=== PATIENT | male | born 1965 | race Hispanic/Latino ===

== ENCOUNTER 2019-08-22 12:50 | Inpatient (IN) | payer MEDICAID ==
--- NOTE | 2019-08-22 12:59 | Emergency Department Report ---
Blank Doc - Documentation Documentation: 54-year-old male that presents with left foot cellulites and drainage. Stated has not been taking his metformin for about 5 months. This initial assessment/diagnostic orders/clinical plan/treatment(s) is/are subject to change based on patient's health status, clinical progression and re- assessment by fellow clinical providers in the ED. Further treatment and workup at subsequent clinical providers discretion. Patient/guardians urged not to elope from the ED as their condition may be serious if not clinically assessed and managed. Initial orders include: 1- Patient sent to MAIN ED for further evaluation and treatment 2- labs 3- UA
[2019-08-22 14:12] LABS: Alanine Aminotransferase 44 units/L (7-56); BUN/Creatinine Ratio 27; Blood Urea Nitrogen 19 mg/dL (9-20); Calcium 9.7 mg/dL (8.4-10.2); Hemolysis Index 36
[2019-08-22 14:24] LABS: Hemoglobin 16.2 gm/dl (11.8-15.2); Mean Corpuscular HGB Conc 34 % (32-34); Mean Corpuscular Volume 92 fl (84-94); Red Blood Count 5.22 M/mm3 (3.65-5.03); Red Cell Distribution Width 14.6 % (13.2-15.2)
[2019-08-22] MEDS ORDERED: SODIUM CHLORIDE 0.9% 1000 ML 1,000 ML IV ONE (14:27)
[2019-08-22 14:32] LABS: Platelet Count 69 K/mm3 (140-440)
[2019-08-22 14:33] LABS: Color,Urine Yellow (Yellow)
[2019-08-22] MEDS ORDERED: cefTRIAXone/NS 1 GM/50 ML 1 GM/50 ML BAG IV ONE (14:33)
[2019-08-22] MEDS ORDERED: MORPHINE 4 MG/1 ML INJ IV ONE (14:33)
[2019-08-22 14:34] LABS: Bilirubin,Urine NEG (Negative); Blood,Urine SM (Negative); Protein,Urine <15 mg/dL mg/dL (Negative)
[2019-08-22 14:38] LABS: Eosinophils % (Auto) 0.1 % (0.0-4.3); Monocytes # (Auto) 1.7 K/mm3 (0.0-0.8)
[2019-08-22] MEDS ORDERED: INSULIN REGULAR, HUMAN 100 UNITS/1 ML IV ONE (14:38)
--- NOTE | 2019-08-22 15:42 | XRay Report ---
Left foot-3 views INDICATION: pain/gangrene. COMPARISON: None. IMPRESSION: There is generalized soft tissue swelling about the foot with subcutaneous gas along the medial aspect of the foot. No leia bone destruction or periostitis identified to suggest osteomyel itis. Old amputation change is present at the base of the great toe metatarsal. Old healed second and third metatarsal fractures are also noted, and there are degenerative changes throughout the foot. Signer Name: Sabas Ruiz MD Signed: 08/22/2019 3:37 PM Workstation Name: [id number]
[2019-08-22 15:47] LABS: Basophils % (Manual) 0 % (0.0-1.8); Eosinophils % (Manual) 0 % (0.0-4.3); Giant Platelets Few; Platelet Estimate Consistent w Auto; RBC Morphology Normal; Total Cells Counted 100
--- NOTE | 2019-08-22 15:55 | Emergency Department Report ---
ED General Adult HPI - General Chief complaint: Extremity Injury, Lower Stated complaint: LFT FOOT/POSS INFECTED/DIABETIC Time Seen by Provider: 08/22/19 12:56 Source: patient Mode of arrival: Ambulatory Limitations: No Limitations - History of Present Illness Initial comments: This is a 54-year-old male with past medical history of diet ED's uncontrolled with medication as well as hypertension uncontrolled with medication who presents to ED complaining of left foot redness and pain and pus drainage for some time now. Patient states that this initially started about 2-1/2 years ago when he sustained an injury to the left foot. Patient states that the food got infected and he had to have the big toe amputated in 2016. 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 Patient states he has not had is diabetic medication for the past 4-5 months. Patient states he takes metformin for his diabetes. Patient denies fever but states that his left foot is painful and red and swollen making it difficult for him to the ambulate properly on that foot. Patient states pain is worsened with applied pressure to the foot. Severity scale (0 -10): 8 - Related Data Previous Rx's Medication Instructions Recorded Last Taken Type Famotidine [Pepcid] 20 mg PO BID #28 tablet 05/18/18 Unknown Rx Folic Acid [Folvite] 1 mg PO QDAY #30 tablet 05/18/18 Unknown Rx Mirtazapine [Remeron 15mg TAB] 15 mg PO QHS #30 tablet 05/18/18 Unknown Rx Nicotine [Habitrol] 21 mg TD QDAY #7 patch 05/18/18 Unknown Rx Thiamine [Vitamin B-1] 100 mg PO QDAY #30 tablet 05/18/18 Unknown Rx amLODIPine 10 mg PO QDAY #30 tablet 05/18/18 Unknown Rx metFORMIN [Glucophage] 500 mg PO BID #60 tablet 05/18/18 Unknown Rx Allergies Allergy/AdvReac Type Severity Reaction Status Date / Time Unable to Assess Allergy Unverified 05/03/18 11:02 ED Review of Systems ROS: Stated complaint: LFT FOOT/POSS INFECTED/DIABETIC Other details as noted in HPI Comment: All other systems reviewed and negative ED Past Medical Hx - Past Medical History Hx CVA: Yes Hx Diabetes: Yes Hx Psychiatric Treatment: Yes (ETOH) - Surgical History Additional Surgical History: LT GRT TOE AMPUTATED - Social History Smoking Status: Unknown if ever smoked Substance Use Type: None - Medications Home Medications: Home Medications Medication Instructions Recorded Confirmed Last Taken Type Famotidine [Pepcid] 20 mg PO BID #28 tablet 05/18/18 Unknown Rx Folic Acid [Folvite] 1 mg PO QDAY #30 tablet 05/18/18 Unknown Rx Mirtazapine [Remeron 15mg TAB] 15 mg PO QHS #30 tablet 05/18/18 Unknown Rx Nicotine [Habitrol] 21 mg TD QDAY #7 patch 05/18/18 Unknown Rx Thiamine [Vitamin B-1] 100 mg PO QDAY #30 tablet 05/18/18 Unknown Rx amLODIPine 10 mg PO QDAY #30 tablet 05/18/18 Unknown Rx metFORMIN [Glucophage] 500 mg PO BID #60 tablet 05/18/18 Unknown Rx ED Physical Exam - General Limitations: No Limitations General appearance: alert, in no apparent distress - Head Head exam: Present: atraumatic, normocephalic - Eye Eye exam: Present: normal appearance - ENT ENT exam: Present: mucous membranes moist - Neck Neck exam: Present: normal inspection - Respiratory Respiratory exam: Present: normal lung sounds bilaterally. Absent: respiratory distress - Cardiovascular Cardiovascular Exam: Present: regular rate, normal rhythm. Absent: systolic murmur, diastolic murmur, rubs, gallop - GI/Abdominal GI/Abdominal exam: Present: soft, normal bowel sounds - Rectal Rectal exam: Present: deferred - Extremities Exam Extremities exam: Present: normal inspection - Expanded Lower Extremity Exam Left Hip exam: Present: full ROM Upper Leg exam: Present: normal inspection Knee exam: Present: normal inspection Lower Leg exam: Present: normal inspection, swelling, erythema. Absent: Tyler's sign Ankle exam: Present: tenderness, swelling (2+ pitting edema) Foot/Toe exam: Present: tenderness, swelling, erythema, amputation (of great toe) Neuro vascular tendon exam: Present: no vascular compromise. Absent: motor deficit, sensory deficit Gait: Positive: not tested/not observed - Back Exam Back exam: Present: normal inspection - Neurological Exam Neurological exam: Present: alert, oriented X3 - Psychiatric Psychiatric exam: Present: normal affect, normal mood - Skin Skin exam: Present: warm, dry, intact, normal color. Absent: rash ED Course Vital Signs 08/22/19 13:09 Temperature 98.1 F Pulse Rate 111 H Respiratory 20 Rate Blood Pressure 128/83 O2 Sat by Pulse 98 Oximetry - Reevaluation(s) Reevaluation #1: Patient is currently laying comfortable in the ED bed. Antibiotics therapy started. Patient awaiting hospitalist assessment. Vital signs are stable at the moment. 08/22/19 16:09 ED Medical Decision Making - Lab Data Result diagrams: 08/22/19 13:23 08/22/19 13:23 Laboratory Last Values WBC 10.6 K/mm3 (4.5-11.0) 08/22/19 13:23 RBC 5.22 M/mm3 (3.65-5.03) H 08/22/19 13:23 Hgb 16.2 gm/dl (11.8-15.2) H 08/22/19 13:23 Hct 48.0 % (35.5-45.6) H 08/22/19 13:23 MCV 92 fl (84-94) 08/22/19 13:23 MCH 31 pg (28-32) 08/22/19 13:23 MCHC 34 % (32-34) 08/22/19 13:23 RDW 14.6 % (13.2-15.2) 08/22/19 13:23 Plt Count 69 K/mm3 (140-440) L 08/22/19 13:23 Jack % (Auto) [employer] 08/22/19 13:23 Eos % (Auto) 0.1 % (0.0-4.3) 08/22/19 13:23 Jack # 1.7 K/mm3 (0.0-0.8) H 08/22/19 13:23 Eos # 0.0 K/mm3 (0.0-0.4) 08/22/19 13:23 Baso # 0.0 K/mm3 (0.0-0.1) 08/22/19 13:23 Add Manual Diff Complete 08/22/19 13:23 Total Counted 100 08/22/19 13:23 Seg Neutrophils % 72.7 % (40.0-70.0) H 08/22/19 13:23 Seg Neuts % (Manual) 73.0 % (40.0-70.0) H 08/22/19 13:23 Band Neutrophils % 0 % 08/22/19 13:23 Lymphocytes % (Manual) 11.0 % (13.4-35.0) L 08/22/19 13:23 Reactive Lymphs % (Man) 0 % 08/22/19 13:23 Monocytes % (Manual) 16.0 % (0.0-7.3) H 08/22/19 13:23 Eosinophils % (Manual) 0 % (0.0-4.3) 08/22/19 13:23 Basophils % (Manual) 0 % (0.0-1.8) 08/22/19 13:23 Metamyelocytes % 0 % 08/22/19 13:23 Myelocytes % 0 % 08/22/19 13:23 Promyelocytes % 0 % 08/22/19 13:23 Blast Cells % 0 % 08/22/19 13:23 Nucleated RBC % Not Reportable 08/22/19 13:23 Seg Neutrophils # 7.9 K/mm3 (1.8-7.7) H 08/22/19 13:23 Seg Neutrophils # Man 7.7 K/mm3 (1.8-7.7) 08/22/19 13:23 Band Neutrophils # 0.0 K/mm3 08/22/19 13:23 Lymphocytes # (Manual) 1.2 K/mm3 (1.2-5.4) 08/22/19 13:23 Abs React Lymphs (Man) 0.0 K/mm3 08/22/19 13:23 Monocytes # (Manual) 1.7 K/mm3 (0.0-0.8) H 08/22/19 13:23 Eosinophils # (Manual) 0.0 K/mm3 (0.0-0.4) 08/22/19 13:23 Basophils # (Manual) 0.0 K/mm3 (0.0-0.1) 08/22/19 13:23 Metamyelocytes # 0.0 K/mm3 08/22/19 13:23 Myelocytes # 0.0 K/mm3 08/22/19 13:23 Promyelocytes # 0.0 K/mm3 08/22/19 13:23 Blast Cells # 0.0 K/mm3 08/22/19 13:23 WBC Morphology Not Reportable 08/22/19 13:23 Hypersegmented Neuts Not Reportable 08/22/19 13:23 Hyposegmented Neuts Not Reportable 08/22/19 13:23 Hypogranular Neuts Not Reportable 08/22/19 13:23 Smudge Cells Not Reportable 08/22/19 13:23 Toxic Granulation Not Reportable 08/22/19 13:23 Toxic Vacuolation Not Reportable 08/22/19 13:23 Dohle Bodies Not Reportable 08/22/19 13:23 Pelger-Huet Anomaly Not Reportable 08/22/19 13:23 Jazmyn Rods Not Reportable 08/22/19 13:23 Platelet Estimate Consistent w auto 08/22/19 13:23 Clumped Platelets Not Reportable 08/22/19 13:23 Plt Clumps, EDTA Not Reportable 08/22/19 13:23 Large Platelets Not Reportable 08/22/19 13:23 Giant Platelets Few 08/22/19 13:23 Platelet Satelliting Not Reportable 08/22/19 13:23 Plt Morphology Comment Not Reportable 08/22/19 13:23 RBC Morphology Normal 08/22/19 13:23 Dimorphic RBCs Not Reportable 08/22/19 13:23 Polychromasia Not Reportable 08/22/19 13:23 Hypochromasia Not Reportable 08/22/19 13:23 Poikilocytosis Not Reportable 08/22/19 13:23 Anisocytosis Not Reportable 08/22/19 13:23 Microcytosis Not Reportable 08/22/19 13:23 Macrocytosis Not Reportable 08/22/19 13:23 Spherocytes Not Reportable 08/22/19 13:23 Pappenheimer Bodies Not Reportable 08/22/19 13:23 Sickle Cells Not Reportable 08/22/19 13:23 Target Cells Not Reportable 08/22/19 13:23 Tear Drop Cells Not Reportable 08/22/19 13:23 Ovalocytes Not Reportable 08/22/19 13:23 Helmet Cells Not Reportable 08/22/19 13:23 [place] Bodies Not Reportable 08/22/19 13:23 [place] Rings Not Reportable 08/22/19 13:23 [place] Cells Not Reportable 08/22/19 13:23 Bite Cells Not Reportable 08/22/19 13:23 Crenated Cell Not Reportable 08/22/19 13:23 Elliptocytes Not Reportable 08/22/19 13:23 Acanthocytes (Spur) Not Reportable 08/22/19 13:23 Rouleaux Not Reportable 08/22/19 13:23 Hemoglobin C Crystals Not Reportable 08/22/19 13:23 Schistocytes Not Reportable 08/22/19 13:23 Malaria parasites Not Reportable 08/22/19 13:23 [place] Bodies Not Reportable 08/22/19 13:23 Hem Pathologist Commnt No 08/22/19 13:23 VBG pH 7.362 (7.320-7.420) 08/22/19 13:23 Sodium 124 mmol/L (137-145) L 08/22/19 13:23 Potassium 3.7 mmol/L (3.6-5.0) 08/22/19 13:23 Chloride 85.1 mmol/L (98-107) L 08/22/19 13:23 Carbon Dioxide 21 mmol/L (22-30) L 08/22/19 13:23 Anion Gap 22 mmol/L 08/22/19 13:23 BUN 19 mg/dL (9-20) 08/22/19 13:23 Creatinine 0.7 mg/dL (0.8-1.5) L 08/22/19 13:23 Estimated GFR > 60 ml/min 08/22/19 13:23 BUN/Creatinine Ratio 27 % 08/22/19 13:23 Glucose 406 mg/dL (75-100) H 08/22/19 13:23 Lactic Acid 2.30 mmol/L (0.7-2.0) H* 08/22/19 14:58 Calcium 9.7 mg/dL (8.4-10.2) 08/22/19 13:23 Total Bilirubin 1.00 mg/dL (0.1-1.2) 08/22/19 13:23 AST 34 units/L (5-40) 08/22/19 13:23 ALT 44 units/L (7-56) 08/22/19 13:23 Alkaline Phosphatase 153 units/L (35-129) H 08/22/19 13:23 Total Protein 7.0 g/dL (6.3-8.2) 08/22/19 13:23 Albumin 3.0 g/dL (3.9-5) L 08/22/19 13:23 Albumin/Globulin Ratio 0.8 % 08/22/19 13:23 Urine Color Yellow (Yellow) 08/22/19 14:11 Urine Turbidity Clear (Clear) 08/22/19 14:11 Urine pH 5.0 (5.0-7.0) 08/22/19 14:11 Ur Specific [place] 1.028 (1.003-1.030) 08/22/19 14:11 Urine Protein <15 mg/dl mg/dL (Negative) 08/22/19 14:11 Urine Glucose (UA) >=500 mg/dL (Negative) 08/22/19 14:11 Urine Ketones 20 mg/dL (Negative) 08/22/19 14:11 Urine Blood Sm (Negative) 08/22/19 14:11 Urine Nitrite Neg (Negative) 08/22/19 14:11 Urine Bilirubin Neg (Negative) 08/22/19 14:11 Urine Urobilinogen 4.0 mg/dL (<2.0) 08/22/19 14:11 Ur Leukocyte Esterase Neg (Negative) 08/22/19 14:11 Urine WBC (Auto) 2.0 /HPF (0.0-6.0) 08/22/19 14:11 Urine RBC (Auto) 4.0 /HPF (0.0-6.0) 08/22/19 14:11 U Epithel Cells (Auto) 1.0 /HPF (0-13.0) 08/22/19 14:11 - Radiology Data Radiology results: report reviewed, image reviewed Left foot-3 views INDICATION: pain/gangrene. COMPARISON: None. IMPRESSION: There is generalized soft tissue swelling about the foot with subcutaneous gas along the medial aspect of the foot. No leia bone destruction or periostitis identified to suggest osteomyelitis. Old amputation change is present at the base of the great toe metatarsal. Old healed second and third metatarsal fractures are also noted, and there are degenerative changes throughout the foot. Signer Name: Sabas Ruiz MD Signed: 08/22/2019 3:37 PM Workstation Name: [id number] Transcribed By: SYED Dictated By: Sabas Ruiz MD Electronically Authenticated By: Sabas Ruiz MD Signed Date/Time: 08/22/19 8170 - Medical Decision Making 54-year-old diabetic male presents gangrene of left foot. CBC, CMP, urinalysis, urine culture, x-rays of the foot was obtained. CBC within normal limits CMP shows mild dehydration, lactate acid 2.3 which is slightly elevated. Patient started on 1 L of fluids, patient receiving antibiotic therapy at the moment. Foot x-ray pending Discussed case with attending Dr. Motta who agrees that patient is to be admitted. Critical care attestation.: If time is entered above; I have spent that time in minutes in the direct care of this critically ill patient, excluding procedure time. ED Disposition Clinical Impression: Diabetic wet gangrene of the foot, Gangrene of left foot, Thrombocytopenia, Hyperglycemia, Elevated lactic acid level Disposition: OP ADMIT IP TO THIS HOSP Is pt being admited?: Yes Does the pt Need Aspirin: No Condition: Stable Referrals: PRIMARY CARE, [Primary Care Provider] - 3-5 Days
[2019-08-22] MEDS ORDERED: PIPERACIL/TAZOBACTA 4.5/NS 100 4.5 GM/100 ML VIAL IV ONE (16:00)
[2019-08-22] MEDS ORDERED: ONDANSETRON 4 MG/2 ML INJ IV ONE (16:02)
[2019-08-22] MEDS ORDERED: diphenhydrAMINE 50 MG/ML VIAL IV ONE (16:02)
[2019-08-22] MEDS ORDERED: VANCOMYCIN 1,500 MG in SODIUM CHLORIDE 0.9% 500 ML 500 ML IV ONE (17:00)
--- NOTE | 2019-08-22 17:01 | History and Physical Report ---
History of Present Illness Chief complaint: My foot is killing me History of present illness: 54 YO Male with Nicotine Dependence, DM, CVA with LHP, ETOH abuse presents to ED for evaluation. Pt states that he has experienced pain, redness, tenderness, and pain as well as foul smelling discharge from his left foot over the past 1week, with progressively worsening symptoms over the past 3 days. Pt states that pain is 8/10, constant, worse with weight bearing. Pt acknowledges swelling, and inability to bear weight. PT transported to [facility] private vehicle. Pt seen and evaluated in ED and found to have Gangrene to LLE, SIRS, Acidosis. Pt admitted to surgical floor and initiated on IV antibiotic therapy. Vascular surgery team consulted in ED. Pt denies fever, chills, CP, Palpitations, NVD, Trauma, BRBPR, or known ill contacts. Prior admission on 05/03/18 reviewed. All listed medication reconciled at time of admission. Past History Past Medical History: other (see hpi) Past Surgical History: Other (Left great toe amputation) Social history: single, alcohol abuse. denies: smoking, prescription drug abuse Family history: diabetes, hypertension Medications and Allergies Allergies Allergy/AdvReac Type Severity Reaction Status Date / Time vancomycin AdvReac Rash Verified 08/22/19 16:52 Home Medications Medication Instructions Recorded Confirmed Last Taken Type Famotidine [Pepcid] 20 mg PO BID #28 tablet 05/18/18 Unknown Rx Folic Acid [Folvite] 1 mg PO QDAY #30 tablet 05/18/18 Unknown Rx Mirtazapine [Remeron 15mg TAB] 15 mg PO QHS #30 tablet 05/18/18 Unknown Rx Nicotine [Habitrol] 21 mg TD QDAY #7 patch 05/18/18 Unknown Rx Thiamine [Vitamin B-1] 100 mg PO QDAY #30 tablet 05/18/18 Unknown Rx amLODIPine 10 mg PO QDAY #30 tablet 05/18/18 Unknown Rx metFORMIN [Glucophage] 500 mg PO BID #60 tablet 05/18/18 Unknown Rx Active Meds: Active Medications Vancomycin HCl 1,500 mg/ (Sodium Chloride) 530 mls @ 270 mls/hr IV ONCE ONE; Protocol Stop: 08/22/19 18:57 Review of Systems Constitutional: no weight loss, no weight gain, no fever, no chills Ears, nose, mouth and throat: no ear pain, no ear discharge, no tinnitis, no decreased hearing, no nose pain Cardiovascular: no chest pain, no orthopnea, no palpitations, no rapid/irregular heart beat, no edema Respiratory: no cough, no cough with sputum, no excessive sputum, no hemoptysis Gastrointestinal: no nausea, no vomiting, no diarrhea, no constipation, no change in bowel habits Genitourinary Male: no hematuria, no discharge, no urinary frequency, no urinary hesitancy, no incontinence Rectal: no pain, no incontinence, no bleeding Musculoskeletal: no neck stiffness, no neck pain, no shooting arm pain, no arm numbness/tingling, no shooting leg pain Integumentary: redness, no rash, no pruritis, no sores, no wounds Neurological: no head injury, no transient paralysis, no paralysis, no syncope Psychiatric: no anxiety, no memory loss, no change in sleep habits, no sleep disturbances, no hypersomnia, no change in libido Endocrine: no cold intolerance, no polyphagia, no excessive thirst, no polydipsia, no polyuria, no nocturia, no excessive sweating Hematologic/Lymphatic: no easy bruising, no easy bleeding, no lymphadenopathy, no lymphedema Exam - Constitutional Vitals: Temp Pulse Resp BP Pulse Ox 98.1 F 111 H 20 128/83 98 08/22/19 13:09 08/22/19 13:09 08/22/19 13:09 08/22/19 13:09 08/22/19 13:09 General appearance: Present: mild distress - EENT Eyes: Present: PERRL ENT: hearing intact, clear oral mucosa - Neck Neck: Present: supple, normal ROM - Respiratory Respiratory effort: normal Respiratory: bilateral: CTA - Cardiovascular Heart Sounds: Present: S1 & S2. Absent: rub, click - Extremities Extremities: pulses symmetrical Extremity abnormal: edema, ulceration, erythema, other (LLE found smelling discharge) Peripheral Pulses: within normal limits - Abdominal General gastrointestinal: Present: soft, non-tender, non-distended, normal bowel sounds Male genitourinary: Present: normal - Integumentary Integumentary: Present: clear, warm, dry - Musculoskeletal Musculoskeletal: gait normal, strength equal bilaterally - Psychiatric Psychiatric: appropriate mood/affect, intact judgment & insight - Neurologic Neurologic: CNII-XII intact, moves all extremities Results - Labs CBC & Chem 7: 08/22/19 13:23 08/22/19 13:23 Labs: Abnormal lab results 08/22/19 08/22/19 08/22/19 Range/Units 13:23 13:23 14:58 RBC 5.22 H (3.65-5.03) M/mm3 Hgb 16.2 H (11.8-15.2) gm/dl Hct 48.0 H (35.5-45.6) % Plt Count 69 L (140-440) K/mm3 [place] # 1.7 H (0.0-0.8) K/mm3 Seg Neutrophils % 72.7 H (40.0-70.0) % Seg Neuts % (Manual) 73.0 H (40.0-70.0) % Lymphocytes % (Manual) 11.0 L (13.4-35.0) % Monocytes % (Manual) 16.0 H (0.0-7.3) % Seg Neutrophils # 7.9 H (1.8-7.7) K/mm3 Monocytes # (Manual) 1.7 H (0.0-0.8) K/mm3 Sodium 124 L (137-145) mmol/L Chloride 85.1 L (98-107) mmol/L Carbon Dioxide 21 L (22-30) mmol/L Creatinine 0.7 L (0.8-1.5) mg/dL Glucose 406 H (75-100) mg/dL Lactic Acid 2.30 H* (0.7-2.0) mmol/L Alkaline Phosphatase 153 H (35-129) units/L Albumin 3.0 L (3.9-5) g/dL Assessment and Plan - Patient Problems (1) SIRS (systemic inflammatory response syndrome) Current Visit: Yes Status: Acute Plan to address problem: IV antibiotic therapy, IVF resuscitation therapy, CBC, CMP, Chest X ray, LLE x ray. (2) Diabetic foot infection Current Visit: Yes Status: Acute Plan to address problem: IV antibiotic therapy, x ray LLE, MRI to evaluate for osteomyelitis, Vascular surgery consulted, wound care consult (3) Acidosis Current Visit: Yes Status: Acute Plan to address problem: IVF resuscitation therapy, supportive care. (4) Diabetes Current Visit: Yes Status: Acute Plan to address problem: ADA diet, insulin, accu check, hypoglycemia protocol (5) EtOH dependence Current Visit: Yes Status: Acute Qualifiers: Complication of substance-induced condition: uncomplicated Plan to address problem: Thiamine, Folic Acid, CIWA protocol, supportive care. (6) DVT prophylaxis Current Visit: Yes Status: Acute Plan to address problem: SCD to BLE while in bed, prophylactic heparin
[2019-08-22] MEDS ORDERED: ALBUTEROL 2.5 MG/3 ML NEBU IH PRN (17:02)
[2019-08-22] MEDS ORDERED: ONDANSETRON 4 MG/2 ML INJ IV PRN (17:02)
[2019-08-22] MEDS ORDERED: DEXTROSE 50% IN WATER (25GM) 50 ML SYRINGE IV PRN (17:07)
[2019-08-22] MEDS ORDERED: LORazepam 2 MG/ML VIAL IV PRN (17:08)
[2019-08-22] MEDS: INSULIN LISPRO 100 UNIT/ML SUB-Q SCH (19:30)
[2019-08-22] MEDS: ACETAMINOPHEN 325 MG TAB PO PRN (20:30)
[2019-08-22] MEDS: NICOTINE 21 MG/24 HR PATCH TD SCH (20:54)
[2019-08-22] MEDS: FAMOTIDINE 20 MG TAB PO SCH (23:39)
[2019-08-23] MEDS: MIRTAZAPINE 15 MG TAB PO SCH ×2 (00:35→22:04)
[2019-08-23] MEDS: INSULIN LISPRO 100 UNIT/ML SUB-Q SCH ×4 (00:37→18:38)
[2019-08-23] MEDS: oxyCODONE /ACETAMINOPHEN 5-325MG TAB PO PRN ×3 (04:09→18:42)
[2019-08-23] MEDS: SODIUM CHLORIDE 0.9% 1000 ML 1,000 ML IV SCH (06:20)
--- NOTE | 2019-08-23 10:19 | Magnetic Resonance Report ---
MRI left foot with and without contrast HISTORY: Left foot abscess/Osteomyelitis. TECHNIQUE: 18 mL of MultiHance was given intravenously. COMPARISON: Left foot radiographs from yesterday FINDINGS: There is considerable soft tissue swelling about the midfoot especially also circumferenti ally about the visualized foot. There is a soft tissue wound medially in the midfoot with subcutaneou s abscess which is crescentic in shape and measures at least 1.2 cm in thickness, roughly 6 cm in wid th, and at least 4 cm in length. No abnormal enhancement or bone marrow edema in the underlying bone to suggest osteomyelitis. Amputation change again noted at the base of the great toe metatarsal as well as medial deviation of a few of the toes especially the second toe. Degenerative changes are also present throughout the ent holly visualized foot. IMPRESSION: Primarily soft tissue findings as outlined above with extensive abscess formation and so ft tissue wound along the medial aspect of the foot. No evidence of osteomyelitis. Signer Name: Sabas Ruiz MD Signed: 08/23/2019 10:15 AM Workstation Name: [id number]
--- NOTE | 2019-08-23 11:00 | Consultation ---
History of Present Illness - Reason for Consult Consult date: 08/23/19 foot ulcer - History of Present Illness HPI: 54yo male with NIDDM who presented with worsening left foot pain, swelling and drainage from foot ulcer over the past week. He noticed foul smelling drainage and grangrenous changes to the left foot over the past 4 days. The patient is a long time smoker since high school and is currently smoking 2 packs per day. The patient stopped taking his metformin this summer. The patient was ambulatory prior to this hospitalization but stopped walking a week ago due to the pain. Patient denies issues with lower extremity claudication prior to this hospitalization. The patient is followed by a rn iv therapy, who he last saw this past Oct. He had his left great and 2 toe amputated in 2015. The patient lives alone with 3 other roommates. He denies any traumatic event to the left foot. PE: NAD, A&Ox3 RRR non-labored respirations abd soft, nt, nd, no palpable masses 1.5cm necrotic ulcer noted on the plantar surface of the right great toe 3.5cm necrotic ulcer noted on the plantar surface of the left mid-foot with gangrenous changes extending on the medial aspect of the left foot with associated erythema and swelling extending to the mid-calf palpable PT and DP pulses on the right triphasic signals noted on the PT and AT at the ankle on the left Plan: patient with uncontrolled ulcer and likely underlying abscess in the left foot patient to benefit from consultation by Gen Surg to evaluate the foot for potential debridement patient seems to have adequate perfusion by physical exam will obtain appropriate arterial studies no immediate intervention from our standpoint at this time patient likely to benefit from ASA given smoking history Past History Past Medical History: other (see hpi) Past Surgical History: Other (Left great toe amputation) Social history: single, alcohol abuse. denies: smoking, prescription drug abuse Family history: diabetes, hypertension Medications and Allergies Allergies Allergy/AdvReac Type Severity Reaction Status Date / Time vancomycin AdvReac Rash Verified 08/22/19 16:52 Home Medications Medication Instructions Recorded Confirmed Last Taken Type Famotidine [Pepcid] 20 mg PO BID #28 tablet 05/18/18 08/23/19 08/21/19 21:00 Rx Folic Acid [Folvite] 1 mg PO QDAY #30 tablet 05/18/18 Unknown Rx Mirtazapine [Remeron 15mg TAB] 15 mg PO QHS #30 tablet 05/18/18 08/23/19 08/22/19 21:00 Rx Nicotine [Habitrol] 21 mg TD QDAY #7 patch 05/18/18 08/23/19 08/22/19 21:00 Rx Thiamine [Vitamin B-1] 100 mg PO QDAY #30 tablet 05/18/18 Unknown Rx amLODIPine 10 mg PO QDAY #30 tablet 05/18/18 08/23/19 08/21/19 21:00 Rx metFORMIN [Glucophage] 500 mg PO BID #60 tablet 05/18/18 08/23/19 08/21/19 21:00 Rx Active Meds: Active Medications Acetaminophen (Tylenol) 650 mg PO Q4H PRN PRN Reason: Pain MILD(1-3)/Fever >100.5/MILES Last Admin: 08/22/19 20:30 Dose: 650 mg Documented by: Albuterol (Proventil) 2.5 mg IH Q4HRT PRN PRN Reason: Shortness Of Breath Amlodipine Besylate (Amlodipine) 10 mg PO QDAY [facility] Dextrose (D50w (25gm) Syringe) 50 ml IV Q30MIN PRN PRN Reason: Hypoglycemia Famotidine (Pepcid) 20 mg PO BID [facility] Last Admin: 08/22/19 23:39 Dose: 20 mg Documented by: Folic Acid (Folvite) 1 mg PO QDAY [facility] Heparin Sodium (Porcine) (Heparin) 5,000 unit SUB-Q Q12HR [facility] Sodium Chloride (Nacl 0.9% 1000 Ml) 1,000 mls @ 100 mls/hr IV DIRECT [facility] Last Admin: 08/23/19 06:20 Dose: 100 mls/hr Documented by: Insulin Human Lispro (Humalog) 0 unit SUB-Q Q6HR [facility]; Protocol Last Admin: 08/23/19 09:21 Dose: Not Given Documented by: Lorazepam (Ativan) 2 mg IV Q1HR PRN PRN Reason: CIWA-Ar 8-15 Last Admin: 08/22/19 20:38 Dose: 2 mg Documented by: Mirtazapine (Remeron) 15 mg PO QHS [facility] Last Admin: 08/23/19 00:35 Dose: 15 mg Documented by: Morphine Sulfate (Morphine) 2 mg IV Q4H PRN PRN Reason: Pain, Moderate (4-6) Nicotine (Habitrol) 21 mg TD QDAY [facility] Last Admin: 08/22/19 20:54 Dose: 21 mg Documented by: Ondansetron HCl (Zofran) 4 mg IV Q8H PRN PRN Reason: Nausea And Vomiting Oxycodone/Acetaminophen (Percocet 5/325) 1 tab PO Q6H PRN PRN Reason: Pain, Moderate (4-6) Last Admin: 08/23/19 04:09 Dose: 1 tab Documented by: Sodium Chloride (Sodium Chloride Flush Syringe 10 Ml) 10 ml IV BID [facility] Last Admin: 08/22/19 23:41 Dose: 10 ml Documented by: Sodium Chloride (Sodium Chloride Flush Syringe 10 Ml) 10 ml IV PRN PRN PRN Reason: LINE FLUSH Thiamine HCl (Vitamin B-1) 100 mg PO QDAY [facility] Exam - Constitutional Vitals: Temp Pulse Resp BP Pulse Ox 98.5 F 98 H 19 93/61 2 L 08/23/19 08:00 08/23/19 08:00 08/23/19 08:00 08/23/19 08:00 08/23/19 08:00 Results - Labs CBC & Chem 7: 08/22/19 13:23 08/22/19 13:23 Labs: Abnormal lab results 08/22/19 08/22/19 08/22/19 Range/Units 13:23 13:23 14:58 RBC 5.22 H (3.65-5.03) M/mm3 Hgb 16.2 H (11.8-15.2) gm/dl Hct 48.0 H (35.5-45.6) % Plt Count 69 L (140-440) K/mm3 [place] # 1.7 H (0.0-0.8) K/mm3 Seg Neutrophils % 72.7 H (40.0-70.0) % Seg Neuts % (Manual) 73.0 H (40.0-70.0) % Lymphocytes % (Manual) 11.0 L (13.4-35.0) % Monocytes % (Manual) 16.0 H (0.0-7.3) % Seg Neutrophils # 7.9 H (1.8-7.7) K/mm3 Monocytes # (Manual) 1.7 H (0.0-0.8) K/mm3 Sodium 124 L (137-145) mmol/L Chloride 85.1 L (98-107) mmol/L Carbon Dioxide 21 L (22-30) mmol/L Creatinine 0.7 L (0.8-1.5) mg/dL Glucose 406 H (75-100) mg/dL POC Glucose (70-105) Lactic Acid 2.30 H* (0.7-2.0) mmol/L Alkaline Phosphatase 153 H (35-129) units/L Albumin 3.0 L (3.9-5) g/dL 08/23/19 Range/Units 08:05 RBC (3.65-5.03) M/mm3 Hgb (11.8-15.2) gm/dl Hct (35.5-45.6) % Plt Count (140-440) K/mm3 [place] # (0.0-0.8) K/mm3 Seg Neutrophils % (40.0-70.0) % Seg Neuts % (Manual) (40.0-70.0) % Lymphocytes % (Manual) (13.4-35.0) % Monocytes % (Manual) (0.0-7.3) % Seg Neutrophils # (1.8-7.7) K/mm3 Monocytes # (Manual) (0.0-0.8) K/mm3 Sodium (137-145) mmol/L Chloride (98-107) mmol/L Carbon Dioxide (22-30) mmol/L Creatinine (0.8-1.5) mg/dL Glucose (75-100) mg/dL POC Glucose 226 H (70-105) Lactic Acid (0.7-2.0) mmol/L Alkaline Phosphatase (35-129) units/L Albumin (3.9-5) g/dL
--- NOTE | 2019-08-23 11:27 | Progress Note ---
Assessment and Plan Assessment and plan: Sepsis. Continue IV antibiotics. Follow-up blood cultures. Etiology secondary to LLE gangrene. Left lower extremity abscess/gangrene. Continue IV antibiotic. Vascular surgery consulted. MRI reveals extensive abscess formation and soft tissue wound along the medial aspect of the foot. No evidence of osteomyelitis. Diabetes mellitus type 2. Continue Accu-Cheks and sliding scale insulin. Tight glycemic control to promote wound healing. EtOH abuse. CIWA protocol. History CVA. History Interval history: No new issues overnight. Hospitalist Physical - Constitutional Vitals: Temp Pulse Resp BP Pulse Ox 98.5 F 98 H 19 93/61 2 L 08/23/19 08:00 08/23/19 08:00 08/23/19 08:00 08/23/19 08:00 08/23/19 08:00 General appearance: Present: no acute distress - EENT Eyes: Present: PERRL, EOM intact ENT: hearing intact, clear oral mucosa, dentition normal - Neck Neck: Present: supple, normal ROM - Respiratory Respiratory effort: normal Respiratory: bilateral: CTA - Cardiovascular Rhythm: regular Heart Sounds: Present: S1 & S2. Absent: gallop, rub - Extremities Extremities: no ischemia, No edema, Full ROM - Abdominal General gastrointestinal: soft, non-tender, non-distended, normal bowel sounds - Integumentary Integumentary: Present: clear, warm, dry - Neurologic Neurologic: CNII-XII intact, moves all extremities Results - Labs CBC & Chem 7: 08/22/19 13:23 08/22/19 13:23 Labs: Laboratory Last Values WBC 10.6 K/mm3 (4.5-11.0) 08/22/19 13:23 RBC 5.22 M/mm3 (3.65-5.03) H 08/22/19 13:23 Hgb 16.2 gm/dl (11.8-15.2) H 08/22/19 13:23 Hct 48.0 % (35.5-45.6) H 08/22/19 13:23 MCV 92 fl (84-94) 08/22/19 13:23 MCH 31 pg (28-32) 08/22/19 13:23 MCHC 34 % (32-34) 08/22/19 13:23 RDW 14.6 % (13.2-15.2) 08/22/19 13:23 Plt Count 69 K/mm3 (140-440) L 08/22/19 13:23 [place] % (Auto) [employer] 08/22/19 13:23 Eos % (Auto) 0.1 % (0.0-4.3) 08/22/19 13:23 [place] # 1.7 K/mm3 (0.0-0.8) H 08/22/19 13:23 Eos # 0.0 K/mm3 (0.0-0.4) 08/22/19 13:23 Baso # 0.0 K/mm3 (0.0-0.1) 08/22/19 13:23 Add Manual Diff Complete 08/22/19 13:23 Total Counted 100 08/22/19 13:23 Seg Neutrophils % 72.7 % (40.0-70.0) H 08/22/19 13:23 Seg Neuts % (Manual) 73.0 % (40.0-70.0) H 08/22/19 13:23 Band Neutrophils % 0 % 08/22/19 13:23 Lymphocytes % (Manual) 11.0 % (13.4-35.0) L 08/22/19 13:23 Reactive Lymphs % (Man) 0 % 08/22/19 13:23 Monocytes % (Manual) 16.0 % (0.0-7.3) H 08/22/19 13:23 Eosinophils % (Manual) 0 % (0.0-4.3) 08/22/19 13:23 Basophils % (Manual) 0 % (0.0-1.8) 08/22/19 13:23 Metamyelocytes % 0 % 08/22/19 13:23 Myelocytes % 0 % 08/22/19 13:23 Promyelocytes % 0 % 08/22/19 13:23 Blast Cells % 0 % 08/22/19 13:23 Nucleated RBC % Not Reportable 08/22/19 13:23 Seg Neutrophils # 7.9 K/mm3 (1.8-7.7) H 08/22/19 13:23 Seg Neutrophils # Man 7.7 K/mm3 (1.8-7.7) 08/22/19 13:23 Band Neutrophils # 0.0 K/mm3 08/22/19 13:23 Lymphocytes # (Manual) 1.2 K/mm3 (1.2-5.4) 08/22/19 13:23 Abs React Lymphs (Man) 0.0 K/mm3 08/22/19 13:23 Monocytes # (Manual) 1.7 K/mm3 (0.0-0.8) H 08/22/19 13:23 Eosinophils # (Manual) 0.0 K/mm3 (0.0-0.4) 08/22/19 13:23 Basophils # (Manual) 0.0 K/mm3 (0.0-0.1) 08/22/19 13:23 Metamyelocytes # 0.0 K/mm3 08/22/19 13:23 Myelocytes # 0.0 K/mm3 08/22/19 13:23 Promyelocytes # 0.0 K/mm3 08/22/19 13:23 Blast Cells # 0.0 K/mm3 08/22/19 13:23 WBC Morphology Not Reportable 08/22/19 13:23 Hypersegmented Neuts Not Reportable 08/22/19 13:23 Hyposegmented Neuts Not Reportable 08/22/19 13:23 Hypogranular Neuts Not Reportable 08/22/19 13:23 Smudge Cells Not Reportable 08/22/19 13:23 Toxic Granulation Not Reportable 08/22/19 13:23 Toxic Vacuolation Not Reportable 08/22/19 13:23 Dohle Bodies Not Reportable 08/22/19 13:23 Pelger-Huet Anomaly Not Reportable 08/22/19 13:23 Jazmyn Rods Not Reportable 08/22/19 13:23 Platelet Estimate Consistent w auto 08/22/19 13:23 Clumped Platelets Not Reportable 08/22/19 13:23 Plt Clumps, EDTA Not Reportable 08/22/19 13:23 Large Platelets Not Reportable 08/22/19 13:23 Giant Platelets Few 08/22/19 13:23 Platelet Satelliting Not Reportable 08/22/19 13:23 Plt Morphology Comment Not Reportable 08/22/19 13:23 RBC Morphology Normal 08/22/19 13:23 Dimorphic RBCs Not Reportable 08/22/19 13:23 Polychromasia Not Reportable 08/22/19 13:23 Hypochromasia Not Reportable 08/22/19 13:23 Poikilocytosis Not Reportable 08/22/19 13:23 Anisocytosis Not Reportable 08/22/19 13:23 Microcytosis Not Reportable 08/22/19 13:23 Macrocytosis Not Reportable 08/22/19 13:23 Spherocytes Not Reportable 08/22/19 13:23 Pappenheimer Bodies Not Reportable 08/22/19 13:23 Sickle Cells Not Reportable 08/22/19 13:23 Target Cells Not Reportable 08/22/19 13:23 Tear Drop Cells Not Reportable 08/22/19 13:23 Ovalocytes Not Reportable 08/22/19 13:23 Helmet Cells Not Reportable 08/22/19 13:23 Lemus-Mcmullen Bodies Not Reportable 08/22/19 13:23 Colon Rings Not Reportable 08/22/19 13:23 Baldwin Cells Not Reportable 08/22/19 13:23 Bite Cells Not Reportable 08/22/19 13:23 Crenated Cell Not Reportable 08/22/19 13:23 Elliptocytes Not Reportable 08/22/19 13:23 Acanthocytes (Spur) Not Reportable 08/22/19 13:23 Rouleaux Not Reportable 08/22/19 13:23 Hemoglobin C Crystals Not Reportable 08/22/19 13:23 Schistocytes Not Reportable 08/22/19 13:23 Malaria parasites Not Reportable 08/22/19 13:23 [place] Bodies Not Reportable 08/22/19 13:23 Hem Pathologist Commnt No 08/22/19 13:23 VBG pH 7.362 (7.320-7.420) 08/22/19 13:23 Sodium 124 mmol/L (137-145) L 08/22/19 13:23 Potassium 3.7 mmol/L (3.6-5.0) 08/22/19 13:23 Chloride 85.1 mmol/L (98-107) L 08/22/19 13:23 Carbon Dioxide 21 mmol/L (22-30) L 08/22/19 13:23 Anion Gap 22 mmol/L 08/22/19 13:23 BUN 19 mg/dL (9-20) 08/22/19 13:23 Creatinine 0.7 mg/dL (0.8-1.5) L 08/22/19 13:23 Estimated GFR > 60 ml/min 08/22/19 13:23 BUN/Creatinine Ratio 27 % 08/22/19 13:23 Glucose 406 mg/dL (75-100) H 08/22/19 13:23 POC Glucose 226 (70-105) H 08/23/19 08:05 Lactic Acid 1.90 mmol/L (0.7-2.0) 08/22/19 15:40 Calcium 9.7 mg/dL (8.4-10.2) 08/22/19 13:23 Total Bilirubin 1.00 mg/dL (0.1-1.2) 08/22/19 13:23 AST 34 units/L (5-40) 08/22/19 13:23 ALT 44 units/L (7-56) 08/22/19 13:23 Alkaline Phosphatase 153 units/L (35-129) H 08/22/19 13:23 Total Protein 7.0 g/dL (6.3-8.2) 08/22/19 13:23 Albumin 3.0 g/dL (3.9-5) L 08/22/19 13:23 Albumin/Globulin Ratio 0.8 % 08/22/19 13:23 Urine Color Yellow (Yellow) 08/22/19 14:11 Urine Turbidity Clear (Clear) 08/22/19 14:11 Urine pH 5.0 (5.0-7.0) 08/22/19 14:11 Ur Specific [place] 1.028 (1.003-1.030) 08/22/19 14:11 Urine Protein <15 mg/dl mg/dL (Negative) 08/22/19 14:11 Urine Glucose (UA) >=500 mg/dL (Negative) 08/22/19 14:11 Urine Ketones 20 mg/dL (Negative) 08/22/19 14:11 Urine Blood Sm (Negative) 08/22/19 14:11 Urine Nitrite Neg (Negative) 08/22/19 14:11 Urine Bilirubin Neg (Negative) 08/22/19 14:11 Urine Urobilinogen 4.0 mg/dL (<2.0) 08/22/19 14:11 Ur Leukocyte Esterase Neg (Negative) 08/22/19 14:11 Urine WBC (Auto) 2.0 /HPF (0.0-6.0) 08/22/19 14:11 Urine RBC (Auto) 4.0 /HPF (0.0-6.0) 08/22/19 14:11 U Epithel Cells (Auto) 1.0 /HPF (0-13.0) 08/22/19 14:11 Active Medications - Current Medications Current Medications: Generic Name Dose Route Start Last Admin Trade Name Freq PRN Reason Stop Dose Admin Acetaminophen 650 mg 08/22/19 17:02 08/22/19 20:30 Tylenol PO 650 mg Q4H PRN Administration Pain MILD(1-3)/Fever >100.5/MILES Albuterol 2.5 mg 08/22/19 17:02 Proventil IH Q4HRT PRN Shortness Of Breath Amlodipine Besylate 10 mg 08/23/19 10:00 Amlodipine PO QDAY [facility] Dextrose 50 ml 08/22/19 17:07 D50w (25gm) Syringe IV Q30MIN PRN Hypoglycemia Famotidine 20 mg 08/22/19 22:00 08/22/19 23:39 Pepcid PO 20 mg BID NADJA Administration Folic Acid 1 mg 08/23/19 10:00 Folvite PO QDAY NADJA Heparin Sodium (Porcine) 5,000 unit 08/23/19 22:00 Heparin SUB-Q Q12HR [facility] Sodium Chloride 1,000 mls @ 100 mls/hr 08/22/19 18:00 08/23/19 06:20 Nacl 0.9% 1000 Ml IV 100 mls/hr DIRECT NADJA Administration Piperacillin Sod/Tazobactam Sod 4.5 gm in 100 mls @ 200 mls/hr 08/23/19 14:00 Zosyn/Ns 4.5gm/100ml IV Q8HR [facility] Protocol Insulin Human Lispro 0 unit 08/22/19 18:00 08/23/19 09:21 Humalog SUB-Q Not Given Q6HR [facility] Protocol Lorazepam 2 mg 08/22/19 17:08 08/22/19 20:38 Ativan IV 2 mg Q1HR PRN Administration CIWA-Ar 8-15 Mirtazapine 15 mg 08/22/19 22:00 08/23/19 00:35 Remeron PO 15 mg QHS NADJA Administration Morphine Sulfate 2 mg 08/22/19 17:02 Morphine IV Q4H PRN Pain, Moderate (4-6) Nicotine 21 mg 11/03/19 20:00 08/22/19 20:54 Habitrol TD 21 mg QDAY NADJA Administration Ondansetron HCl 4 mg 08/22/19 17:02 Zofran IV Q8H PRN Nausea And Vomiting Oxycodone/Acetaminophen 1 tab 08/22/19 17:02 08/23/19 04:09 Percocet 5/325 PO 1 tab Q6H PRN Administration Pain, Moderate (4-6) Sodium Chloride 10 ml 08/22/19 22:00 08/22/19 23:41 Sodium Chloride Flush Syringe 10 Ml IV 10 ml BID NADJA Administration Sodium Chloride 10 ml 08/22/19 17:02 Sodium Chloride Flush Syringe 10 Ml IV PRN PRN LINE FLUSH Thiamine HCl 100 mg 08/23/19 10:00 Vitamin B-1 PO QDAY NADJA
[2019-08-23] MEDS: FAMOTIDINE 20 MG TAB PO SCH ×2 (12:05→22:04)
[2019-08-23] MEDS: NICOTINE 21 MG/24 HR PATCH TD SCH (12:05)
[2019-08-23] MEDS: THIAMINE 100 MG TAB PO SCH (12:05)
[2019-08-23] MEDS: amLODIPine 10 MG TAB PO SCH (12:06)
[2019-08-23] MEDS: FOLIC ACID 1 MG TAB PO SCH (12:06)
[2019-08-23 12:32] LABS: Hematocrit 46.3 % (35.5-45.6); Hemoglobin 15.7 gm/dl (11.8-15.2); Mean Corpuscular HGB Conc 34 % (32-34); Mean Corpuscular Volume 91 fl (84-94); Red Cell Distribution Width 15.1 % (13.2-15.2)
[2019-08-23 12:37] LABS: Platelet Count 46 K/mm3 (140-440)
[2019-08-23 12:58] LABS: Alanine Aminotransferase 44 units/L (7-56); Albumin 2.6 g/dL (3.9-5); BUN/Creatinine Ratio 25; Blood Urea Nitrogen 28 mg/dL (9-20); Calcium 9.3 mg/dL (8.4-10.2); Hemolysis Index 47
[2019-08-23 14:49] LABS: Total Cells Counted 100
[2019-08-23 14:50] LABS: Band Neutrophils # (Manual) 1.8 K/mm3; Basophils % (Manual) 0 % (0.0-1.8); Eosinophils % (Manual) 0 % (0.0-4.3); Platelet Estimate Consistent w Auto; RBC Morphology Normal
[2019-08-23] MEDS: PIPERACIL/TAZOBACTA 4.5/NS 100 4.5 GM/100 ML VIAL IV SCH ×2 (15:57→22:11)
--- NOTE | 2019-08-23 17:51 | Vascular Lab Report ---
Duplex arterial ultrasound of the left lower extremity INDICATION: Left foot ulcer FINDINGS: There is triphasic flow to the level of the popliteal artery with biphasic flow seen distal ly. Images show only mild plaque formation present with no critical stenoses or occlusions and there is no significant peripheral arterial disease seen. Signer Name: Fabien Maldonado MD Signed: 08/23/2019 5:46 PM Workstation Name: [id number]
--- NOTE | 2019-08-23 17:52 | Vascular Lab Report ---
Ankle-brachial indices INDICATION: Left foot ulcer and gangrene FINDINGS: The YANETH on the right is 1.1 and the left also 1.1 which are normal. Signer Name: Fabien Maldonado MD Signed: 08/23/2019 5:47 PM Workstation Name: [id number]
[2019-08-23] MEDS: HEPARIN 5,000 UNIT/1 ML VIAL SUB-Q SCH (22:04)
[2019-08-24] MEDS: INSULIN LISPRO 100 UNIT/ML SUB-Q SCH ×4 (00:21→23:43)
[2019-08-24] MEDS: PIPERACIL/TAZOBACTA 4.5/NS 100 4.5 GM/100 ML VIAL IV SCH ×3 (05:25→23:44)
[2019-08-24] MEDS: MORPHINE 2 MG/1 ML INJ IV PRN ×2 (09:01→18:27)
[2019-08-24] MEDS: SODIUM CHLORIDE 0.9% 1000 ML 1,000 ML IV SCH (09:17)
[2019-08-24] MEDS: HEPARIN 5,000 UNIT/1 ML VIAL SUB-Q SCH (10:00)
[2019-08-24] MEDS: FAMOTIDINE 20 MG TAB PO SCH ×2 (10:00→21:28)
--- NOTE | 2019-08-24 10:46 | Consultation ---
History of Present Illness Consult date: 08/24/19 Reason for consult: other (left foot wound) Chief complaint: left foot pain - History of present illness History of present illness: 54 yr old male presented to ED 2 days ago with a 1 week history of left foot pain that got progressively worse. His left foot began to drain foul smelling fluid as well. He is a diabetic who has not taken his metformin in several months. He was seen by vascular surgery and worked up and found to have adequate perfusion to the foot and no intervention is planned at this time. Imaging has also shown no gross signs of osteomyelitis but a significant abscess on the medial aspect of his left foot. Past History Past Medical History: diabetes, hypertension, hyperlipidemia, other (see hpi) Past Surgical History: appendectomy, Other (Left great toe amputation) Social history: single, alcohol abuse. denies: smoking, prescription drug abuse Family history: diabetes, hypertension Medications and Allergies Allergies Allergy/AdvReac Type Severity Reaction Status Date / Time vancomycin AdvReac Rash Verified 08/22/19 16:52 Home Medications Medication Instructions Recorded Confirmed Last Taken Type Famotidine [Pepcid] 20 mg PO BID #28 tablet 05/18/18 08/23/19 08/21/19 21:00 Rx Folic Acid [Folvite] 1 mg PO QDAY #30 tablet 05/18/18 Unknown Rx Mirtazapine [Remeron 15mg TAB] 15 mg PO QHS #30 tablet 05/18/18 08/23/19 08/22/19 21:00 Rx Nicotine [Habitrol] 21 mg TD QDAY #7 patch 05/18/18 08/23/19 08/22/19 21:00 Rx Thiamine [Vitamin B-1] 100 mg PO QDAY #30 tablet 05/18/18 Unknown Rx amLODIPine 10 mg PO QDAY #30 tablet 05/18/18 08/23/19 08/21/19 21:00 Rx metFORMIN [Glucophage] 500 mg PO BID #60 tablet 05/18/18 08/23/19 08/21/19 21:00 Rx Active Meds: Active Medications Acetaminophen (Tylenol) 650 mg PO Q4H PRN PRN Reason: Pain MILD(1-3)/Fever >100.5/MILES Last Admin: 08/22/19 20:30 Dose: 650 mg Documented by: Albuterol (Proventil) 2.5 mg IH Q4HRT PRN PRN Reason: Shortness Of Breath Amlodipine Besylate (Amlodipine) 10 mg PO QDAY [facility] Last Admin: 08/23/19 12:06 Dose: Not Given Documented by: Dextrose (D50w (25gm) Syringe) 50 ml IV Q30MIN PRN PRN Reason: Hypoglycemia Famotidine (Pepcid) 20 mg PO BID [facility] Last Admin: 08/23/19 22:04 Dose: 20 mg Documented by: Folic Acid (Folvite) 1 mg PO QDAY [facility] Last Admin: 08/23/19 12:06 Dose: 1 mg Documented by: Heparin Sodium (Porcine) (Heparin) 5,000 unit SUB-Q Q12HR [facility] Last Admin: 08/23/19 22:04 Dose: 5,000 unit Documented by: Sodium Chloride (Nacl 0.9% 1000 Ml) 1,000 mls @ 100 mls/hr IV DIRECT [facility] Last Admin: 08/24/19 09:17 Dose: 100 mls/hr Documented by: Piperacillin Sod/Tazobactam Sod (Zosyn/Ns 4.5gm/100ml) 4.5 gm in 100 mls @ 200 mls/hr IV Q8HR [facility]; Protocol Last Admin: 08/24/19 05:25 Dose: 200 mls/hr Documented by: Insulin Human Lispro (Humalog) 0 unit SUB-Q Q6HR [facility]; Protocol Last Admin: 08/24/19 00:21 Dose: 3 unit Documented by: Lorazepam (Ativan) 2 mg IV Q1HR PRN PRN Reason: CIWA-Ar 8-15 Last Admin: 08/22/19 20:38 Dose: 2 mg Documented by: Mirtazapine (Remeron) 15 mg PO QHS [facility] Last Admin: 08/23/19 22:04 Dose: 15 mg Documented by: Morphine Sulfate (Morphine) 2 mg IV Q4H PRN PRN Reason: Pain, Moderate (4-6) Last Admin: 08/24/19 09:01 Dose: 2 mg Documented by: Nicotine (Habitrol) 21 mg TD QDAY [facility] Last Admin: 08/23/19 12:05 Dose: 21 mg Documented by: Ondansetron HCl (Zofran) 4 mg IV Q8H PRN PRN Reason: Nausea And Vomiting Oxycodone/Acetaminophen (Percocet 5/325) 1 tab PO Q6H PRN PRN Reason: Pain, Moderate (4-6) Last Admin: 08/23/19 18:42 Dose: 1 tab Documented by: Sodium Chloride (Sodium Chloride Flush Syringe 10 Ml) 10 ml IV BID [facility] Last Admin: 08/23/19 12:06 Dose: 10 ml Documented by: Sodium Chloride (Sodium Chloride Flush Syringe 10 Ml) 10 ml IV PRN PRN PRN Reason: LINE FLUSH Thiamine HCl (Vitamin B-1) 100 mg PO QDAY [facility] Last Admin: 08/23/19 12:05 Dose: 100 mg Documented by: Review of Systems - Cardiovascular no chest pain - Respiratory no shortness of breath - Gastrointestinal no abdominal pain Exam Vital Signs Temp Pulse Resp BP Pulse Ox 98.1 F 111 H 20 128/83 98 08/22/19 13:09 08/22/19 13:09 08/22/19 13:09 08/22/19 13:09 08/22/19 13:09 - General physical appearance Positive: well developed, no distress, moderate pain - Respiratory Positive: normal expansion, normal respiratory effort - Extremities Extremity abnormal: edema, ulceration, erythema, other (left foot with signifcant erythema and swelling. foul smelling purulent drainage coming from a would on the medial side of the left foot. Great toe amputation healed well. Remaining toes intact with sensation, but showing deformity. Has has some movement. There is a wound on the sole of the foot as well. Right foot showing no signs of infection but has a chronic ulcer wound on the great toe and sole under that metatarsal head. ) Results - Labs 08/23/19 11:54 08/23/19 11:54 Abnormal lab results 08/22/19 08/23/19 08/23/19 Range/Units 13:11 11:54 11:54 RBC 5.10 H (3.65-5.03) M/mm3 Hgb 15.7 H (11.8-15.2) gm/dl Hct 46.3 H (35.5-45.6) % Plt Count 46 L (140-440) K/mm3 Lymphocytes % (Manual) 11.0 L (13.4-35.0) % Lymphocytes # (Manual) 1.0 L (1.2-5.4) K/mm3 Sodium 132 L D (137-145) mmol/L Chloride 95.7 L (98-107) mmol/L BUN 28 H (9-20) mg/dL Glucose 188 H (75-100) mg/dL POC Glucose 335 H (70-105) AST 50 H (5-40) units/L Albumin 2.6 L (3.9-5) g/dL 08/23/19 08/24/19 08/24/19 Range/Units 18:03 00:18 06:15 RBC (3.65-5.03) M/mm3 Hgb (11.8-15.2) gm/dl Hct (35.5-45.6) % Plt Count (140-440) K/mm3 Lymphocytes % (Manual) (13.4-35.0) % Lymphocytes # (Manual) (1.2-5.4) K/mm3 Sodium (137-145) mmol/L Chloride (98-107) mmol/L BUN (9-20) mg/dL Glucose (75-100) mg/dL POC Glucose 324 H 174 H 188 H (70-105) AST (5-40) units/L Albumin (3.9-5) g/dL Diabetes panel 08/23/19 Range/Units 11:54 Sodium 132 L D (137-145) mmol/L Potassium 4.3 (3.6-5.0) mmol/L Chloride 95.7 L (98-107) mmol/L Carbon Dioxide 22 (22-30) mmol/L BUN 28 H (9-20) mg/dL Creatinine 1.1 D (0.8-1.5) mg/dL Glucose 188 H (75-100) mg/dL Calcium 9.3 (8.4-10.2) mg/dL AST 50 H (5-40) units/L ALT 44 (7-56) units/L Alkaline Phosphatase 128 (35-129) units/L Total Protein 6.4 (6.3-8.2) g/dL Albumin 2.6 L (3.9-5) g/dL Calcium panel 08/23/19 Range/Units 11:54 Calcium 9.3 (8.4-10.2) mg/dL Albumin 2.6 L (3.9-5) g/dL Pituitary panel 08/23/19 Range/Units 11:54 Sodium 132 L D (137-145) mmol/L Potassium 4.3 (3.6-5.0) mmol/L Chloride 95.7 L (98-107) mmol/L Carbon Dioxide 22 (22-30) mmol/L BUN 28 H (9-20) mg/dL Creatinine 1.1 D (0.8-1.5) mg/dL Glucose 188 H (75-100) mg/dL Calcium 9.3 (8.4-10.2) mg/dL Adrenal panel 08/23/19 Range/Units 11:54 Sodium 132 L D (137-145) mmol/L Potassium 4.3 (3.6-5.0) mmol/L Chloride 95.7 L (98-107) mmol/L Carbon Dioxide 22 (22-30) mmol/L BUN 28 H (9-20) mg/dL Creatinine 1.1 D (0.8-1.5) mg/dL Glucose 188 H (75-100) mg/dL Calcium 9.3 (8.4-10.2) mg/dL Total Bilirubin 1.20 (0.1-1.2) mg/dL AST 50 H (5-40) units/L ALT 44 (7-56) units/L Alkaline Phosphatase 128 (35-129) units/L Total Protein 6.4 (6.3-8.2) g/dL Albumin 2.6 L (3.9-5) g/dL Assessment and Plan 54 yo diabetic male with left foot cellulitis and abscess. No gross signs of inadequate perfusion or osteomyelitis. stable. will take to OR for incision and drainage. Would continue abx and will have wound care follow after drainage. - consent obtained Pt will need coordination with social work to get pcp access and follow up to resume his need home meds. Especially for diabetes and HTN.
[2019-08-24] MEDS ORDERED: BUPIVACAINE-EPINEPHRINE/PF 0.5%-1:200,000 (30 ML) VIAL INFILTRATI ONE (11:09)
[2019-08-24] MEDS ORDERED: LIDOCAINE (1%) 10 MG/1 ML VIAL 20 ML MDV ONE (11:09)
[2019-08-24] MEDS ORDERED: BUPIVACAINE/PF (0.5%) 5 MG/1 ML 30 ML VIAL INFILTRATI ONE ×2 (11:09→12:34)
[2019-08-24] MEDS ORDERED: NEOMY 40 MG/POLYMYXIN B 200,000 UNITS/ML (GU) AMPULE IR ONE (11:10)
[2019-08-24] MEDS ORDERED: ONDANSETRON 4 MG/2 ML INJ IV PRN (11:29)
[2019-08-24] MEDS ORDERED: fentaNYL 100 MCG/2 ML INJ IV PRN (11:29)
--- NOTE | 2019-08-24 11:30 | Anesthesia Day of Surgery ---
Anesthesia Day of Surgery - Day of Surgery Patient Examined: Yes Patient H&P Reviewed: Yes Patient is NPO: Yes
--- NOTE | 2019-08-24 11:34 | Anesthesia Consultation ---
Anesthesia Consult and Med Hx Date of service: 08/24/19 - Airway Anesthetic Teeth Evaluation: Poor, Chipped, Dentures, Edentulous (Upper) - Pre-Operative Health Status ASA Pre-Surgery Classification: ASA3, Emergency Proposed Anesthetic Plan: General - Pulmonary Hx Smoking: Yes Hx Asthma: No COPD: No Hx Pneumonia: No Hx Sleep Apnea: No - Cardiovascular System Hx Hypertension: Yes Hx Coronary Artery Disease: No Hx Heart Attack/AMI: No Hx Angina: No Hx Percutaneous Transluminal Coronary Angioplasty (PTCA): No Hx Pacemaker: No Hx Valvular Heart Disease: No Hx Heart Murmur: No Hx Peripheral Vascular Disease: No - Central Nervous System CVA: No Hx Psychiatric Problems: No - Gastrointestinal Hx Ulcer: No - Endocrine Hx Renal Disease: No Hx End Stage Renal Disease: No Hx Cirrhosis: No (Heavy EtOH) Hx Liver Disease: No Hx Non-Insulin Dependent Diabetes: Yes Hx Hypothyroidism: No Hx Hyperthyroidism: No - Hematic Hx Anemia: No Hx Sickle Cell Disease: No - Other Systems Hx Alcohol Use: Yes (Heavy) Hx Cancer: No
[2019-08-24] MEDS ORDERED: fentaNYL 100 MCG/2 ML INJ ONE (11:40)
[2019-08-24] MEDS ORDERED: LIDOCAINE MPF (2%) 20 MG/1 ML VIAL 5 ML ONE (11:40)
[2019-08-24] MEDS ORDERED: PROPOFOL 200 MG/20 ML VIAL IV ONE (11:40)
[2019-08-24] MEDS ORDERED: LACTATED RINGERS 1,000 ML ONE (11:56)
[2019-08-24] MEDS ORDERED: LACTATED RINGERS 1,000 ML IV SCH (12:00)
[2019-08-24] MEDS ORDERED: LIDOCAINE (1%) 10 MG/1 ML VIAL 20 ML MDV INFILTRATI ONE (12:34)
[2019-08-24] MEDS ORDERED: SODIUM CHLORIDE 0.9% IRR 1,000 ML BOTTLE IR ONE (12:34)
[2019-08-24] MEDS ORDERED: ONDANSETRON 4 MG/2 ML INJ ONE (13:02)
--- NOTE | 2019-08-24 13:38 | Operative Report ---
Operative Report Operative Report: DATE: 08/24/2019 SURGEON: CHELSEA VARGHESE MD PRE-OP DX: LEFT FOOT CELLULITIS AND ABSCESS POST-OP DX: SAME PRE-OP SURGERY PERFORMED: INCISION AND DRAINAGE OF LEFT FOOT ABSCESS WITH EXCISION OF NECROTIC TISSUE ANESTHESIA: GENERAL WITH LMA EBL: 30ML COMPLICATIONS: NONE IMMEDIATE FINDINGS: 5X2 CM DRAINING WOUND ON MEDIAL ASPECT OF LEFT FOOT THAT WAS DEBRIDED TO A RESULTING WOUND OF 11X7CM SPECIMEN: WOUND CULTURES TAKEN INDICATION: 54 YEAR OLD MALE WITH A HX OF DIABETES, AND NICOTINE USE PRESENTED TO ED WITH A ONE WEEK HX OF PROGRESSIVELY WORSENING LEFT FOOT SWELLING, PAIN AND DRAINAGE. WORK SHOWED NO VASCULAR OR BONE COMPROMISE, BUT VERIFIED SUBCUTANEOUS ABSCESS. HE WAS CONSENTED FOR INCISION, DRAINAGE, AND DEBRIDEMENT OF LEFT FOOT. DETAILS OF PROCEDURE: PT WAS TAKEN INTO OR SUITE AND LAID IN SUPINE POSITION. RIGHT LOWER EXTREMITY SCD WAS PLACED. GENERAL ANESTHESIA WAS INDUCED WITH LMA. HIS LEFT FOOT WAS PREPPED AND DRAPED IN STERILE FASHION. THERE WAS NOTED TO BE ERYTHEMA EXTENDING ABOUT 5CM ABOVE THE MEDIAL MALLEOLUS, THE MEDIAL PORTION OF THE FOOT WITH SOME EXTENSION TO THE VENTRAL SIDE OF THE FOOT. THERE WAS NOTED TO BE PURULENT MATERIAL THAT COULD BE EXPRESSED FROM TISSUE PROXIMAL TO THE FOOT. A 10 BLADE SCALPEL WAS USED TO MAKE AN INCISION THAT EXTENDED THE WOUND PROXIMAL LY. NECROTIC TISSUE WAS EXCISED AND SENT OFF OF THE TABLE. A COMBINATION OF FINGER DISSECTION AND PROBING WITH A YEIMI CLAMP WAS USED TO BREAK UP THE ABSCESS POCKETS. THE ABSCESS EXTENDED OVER THE MEDIAL MALLEOLUS, AND OVER THE VENTRAL PORTION OF THE FOOT. A CURRETTE WAS USED TO DEBRIDE THE UNDERLYING MUSCLE TO VIABLE TISSUE. A PULSE-LAVAGE WAS USED TO IRRIGATE THE WOUND POCKET WHICH WAS THEN PACKED AND DRESSED WITH BETADINE STAINED KERLEX, FOLLOWED BY STERILE DRESSING. HE WAS AWOKEN AND TAKEN TO RECOVERY IN STABLE CONDITION. ALL COUNTS WERE CORRECT.
--- NOTE | 2019-08-24 14:34 | Event Note ---
Date: 08/24/19 Patient was in the operating room. Not able to see patient.
[2019-08-24] MEDS: THIAMINE 100 MG TAB PO SCH (16:16)
[2019-08-24] MEDS: FOLIC ACID 1 MG TAB PO SCH (16:16)
[2019-08-24] MEDS: amLODIPine 10 MG TAB PO SCH (16:16)
[2019-08-24] MEDS: NICOTINE 21 MG/24 HR PATCH TD SCH (16:16)
--- NOTE | 2019-08-24 17:54 | Progress Note ---
Assessment and Plan Assessment and plan: --Left foot abscess; surgery consulted Status post incision drainage, debridement of necrotic tissue continue wound care, continue Zosyn, consult ID --Sepsis. Continue IV antibiotics. Follow-up blood cultures, wound cultures Etiology secondary to LLE gangrene. --Left lower extremity abscess/gangrene. Continue IV antibiotic. Vascular surgery consulted. MRI reveals extensive abscess s/p I&D, No evidence of osteomyelitis. --H/O Lt.Great toe amputation --Diabetes mellitus type 2. Continue Accu-Cheks and sliding scale insulin. Tight glycemic control to promote wound healing. --EtOH abuse. CIWA protocol. --History CVA. Supportive care --DVT prophylaxis; heparin Lay Out Inspector recommendations noted and appreciated Monitor clinically and adjust management as needed History Interval history: Patient seen and examined medical records reviewed Patient complains of severe pain in the foot Status post incision and drainage and debridement Alert and awake in mild distress Vital signs reviewed Hospitalist Physical - Constitutional Vitals: Temp Pulse Resp BP Pulse Ox 100.6 F H 110 H 18 126/71 94 08/24/19 14:52 08/24/19 16:16 08/24/19 14:52 08/24/19 16:16 08/24/19 14:52 General appearance: Present: mild distress, well-nourished - EENT Eyes: Present: PERRL. Absent: scleral icterus - Neck Neck: Present: supple, normal ROM - Respiratory Respiratory effort: normal Respiratory: bilateral: diminished, negative: rales, rhonchi, wheezing - Cardiovascular Rhythm: regular Heart Sounds: Present: S1 & S2 - Extremities Extremities: abnormal (Left foot, dressing bloodstained) Extremity abnormal: edema, other (left great toe amputation) - Abdominal General gastrointestinal: soft, non-tender, non-distended, normal bowel sounds - Integumentary Integumentary: Present: clear, warm - Psychiatric Psychiatric: appropriate mood/affect, cooperative - Neurologic Neurologic: moves all extremities Results - Labs CBC & Chem 7: 08/23/19 11:54 08/23/19 11:54 Labs: Laboratory Last Values WBC 8.8 K/mm3 (4.5-11.0) 08/23/19 11:54 RBC 5.10 M/mm3 (3.65-5.03) H 08/23/19 11:54 Hgb 15.7 gm/dl (11.8-15.2) H 08/23/19 11:54 Hct 46.3 % (35.5-45.6) H 08/23/19 11:54 MCV 91 fl (84-94) 08/23/19 11:54 MCH 31 pg (28-32) 08/23/19 11:54 MCHC 34 % (32-34) 08/23/19 11:54 RDW 15.1 % (13.2-15.2) 08/23/19 11:54 Plt Count 46 K/mm3 (140-440) L 08/23/19 11:54 [place] % (Auto) Personal Fitness Trainer 08/22/19 13:23 Eos % (Auto) 0.1 % (0.0-4.3) 08/22/19 13:23 [place] # 1.7 K/mm3 (0.0-0.8) H 08/22/19 13:23 Eos # 0.0 K/mm3 (0.0-0.4) 08/22/19 13:23 Baso # 0.0 K/mm3 (0.0-0.1) 08/22/19 13:23 Add Manual Diff Complete 08/23/19 11:54 Total Counted 100 08/23/19 11:54 Seg Neutrophils % 72.7 % (40.0-70.0) H 08/22/19 13:23 Seg Neuts % (Manual) 63.0 % (40.0-70.0) 08/23/19 11:54 Band Neutrophils % 20.0 % 08/23/19 11:54 Lymphocytes % (Manual) 11.0 % (13.4-35.0) L 08/23/19 11:54 Reactive Lymphs % (Man) 0 % 08/23/19 11:54 Monocytes % (Manual) 5.0 % (0.0-7.3) 08/23/19 11:54 Eosinophils % (Manual) 0 % (0.0-4.3) 08/23/19 11:54 Basophils % (Manual) 0 % (0.0-1.8) 08/23/19 11:54 Metamyelocytes % 1.0 % 08/23/19 11:54 Myelocytes % 0 % 08/23/19 11:54 Promyelocytes % 0 % 08/23/19 11:54 Blast Cells % 0 % 08/23/19 11:54 Nucleated RBC % Not Reportable 08/23/19 11:54 Seg Neutrophils # 7.9 K/mm3 (1.8-7.7) H 08/22/19 13:23 Seg Neutrophils # Man 5.5 K/mm3 (1.8-7.7) 08/23/19 11:54 Band Neutrophils # 1.8 K/mm3 08/23/19 11:54 Lymphocytes # (Manual) 1.0 K/mm3 (1.2-5.4) L 08/23/19 11:54 Abs React Lymphs (Man) 0.0 K/mm3 08/23/19 11:54 Monocytes # (Manual) 0.4 K/mm3 (0.0-0.8) 08/23/19 11:54 Eosinophils # (Manual) 0.0 K/mm3 (0.0-0.4) 08/23/19 11:54 Basophils # (Manual) 0.0 K/mm3 (0.0-0.1) 08/23/19 11:54 Metamyelocytes # 0.1 K/mm3 08/23/19 11:54 Myelocytes # 0.0 K/mm3 08/23/19 11:54 Promyelocytes # 0.0 K/mm3 08/23/19 11:54 Blast Cells # 0.0 K/mm3 08/23/19 11:54 WBC Morphology Not Reportable 08/23/19 11:54 Hypersegmented Neuts Not Reportable 08/23/19 11:54 Hyposegmented Neuts Not Reportable 08/23/19 11:54 Hypogranular Neuts Not Reportable 08/23/19 11:54 Smudge Cells Not Reportable 08/23/19 11:54 Toxic Granulation Not Reportable 08/23/19 11:54 Toxic Vacuolation Not Reportable 08/23/19 11:54 Dohle Bodies Not Reportable 08/23/19 11:54 Pelger-Huet Anomaly Not Reportable 08/23/19 11:54 Jazmyn Rods Not Reportable 08/23/19 11:54 Platelet Estimate Consistent w auto 08/23/19 11:54 Clumped Platelets Not Reportable 08/23/19 11:54 Plt Clumps, EDTA Not Reportable 08/23/19 11:54 Large Platelets Not Reportable 08/23/19 11:54 Giant Platelets Not Reportable 08/23/19 11:54 Platelet Satelliting Not Reportable 08/23/19 11:54 Plt Morphology Comment Not Reportable 08/23/19 11:54 RBC Morphology Normal 08/23/19 11:54 Dimorphic RBCs Not Reportable 08/23/19 11:54 Polychromasia Not Reportable 08/23/19 11:54 Hypochromasia Not Reportable 08/23/19 11:54 Poikilocytosis Not Reportable 08/23/19 11:54 Anisocytosis Not Reportable 08/23/19 11:54 Microcytosis Not Reportable 08/23/19 11:54 Macrocytosis Not Reportable 08/23/19 11:54 Spherocytes Not Reportable 08/23/19 11:54 Pappenheimer Bodies Not Reportable 08/23/19 11:54 Sickle Cells Not Reportable 08/23/19 11:54 Target Cells Not Reportable 08/23/19 11:54 Tear Drop Cells Not Reportable 08/23/19 11:54 Ovalocytes Not Reportable 08/23/19 11:54 Helmet Cells Not Reportable 08/23/19 11:54 [place] Bodies Not Reportable 08/23/19 11:54 [place] Rings Not Reportable 08/23/19 11:54 [place] Cells Not Reportable 08/23/19 11:54 Bite Cells Not Reportable 08/23/19 11:54 Crenated Cell Not Reportable 08/23/19 11:54 Elliptocytes Not Reportable 08/23/19 11:54 Acanthocytes (Spur) Not Reportable 08/23/19 11:54 Rouleaux Not Reportable 08/23/19 11:54 Hemoglobin C Crystals Not Reportable 08/23/19 11:54 Schistocytes Not Reportable 08/23/19 11:54 Malaria parasites Not Reportable 08/23/19 11:54 [place] Bodies Not Reportable 08/23/19 11:54 Hem Pathologist Commnt No 08/23/19 11:54 VBG pH 7.362 (7.320-7.420) 08/22/19 13:23 Sodium 132 mmol/L (137-145) L D 08/23/19 11:54 Potassium 4.3 mmol/L (3.6-5.0) 08/23/19 11:54 Chloride 95.7 mmol/L (98-107) L 08/23/19 11:54 Carbon Dioxide 22 mmol/L (22-30) 08/23/19 11:54 Anion Gap 19 mmol/L 08/23/19 11:54 BUN 28 mg/dL (9-20) H 08/23/19 11:54 Creatinine 1.1 mg/dL (0.8-1.5) D 08/23/19 11:54 Estimated GFR > 60 ml/min 08/23/19 11:54 BUN/Creatinine Ratio 25 % 08/23/19 11:54 Glucose 188 mg/dL (75-100) H 08/23/19 11:54 POC Glucose 179 (70-105) H 08/24/19 13:37 Lactic Acid 1.90 mmol/L (0.7-2.0) 08/22/19 15:40 Calcium 9.3 mg/dL (8.4-10.2) 08/23/19 11:54 Total Bilirubin 1.20 mg/dL (0.1-1.2) 08/23/19 11:54 AST 50 units/L (5-40) H 08/23/19 11:54 ALT 44 units/L (7-56) 08/23/19 11:54 Alkaline Phosphatase 128 units/L (35-129) 08/23/19 11:54 Total Protein 6.4 g/dL (6.3-8.2) 08/23/19 11:54 Albumin 2.6 g/dL (3.9-5) L 08/23/19 11:54 Albumin/Globulin Ratio 0.7 % 08/23/19 11:54 Urine Color Yellow (Yellow) 08/22/19 14:11 Urine Turbidity Clear (Clear) 08/22/19 14:11 Urine pH 5.0 (5.0-7.0) 08/22/19 14:11 Ur Specific [place] 1.028 (1.003-1.030) 08/22/19 14:11 Urine Protein <15 mg/dl mg/dL (Negative) 08/22/19 14:11 Urine Glucose (UA) >=500 mg/dL (Negative) 08/22/19 14:11 Urine Ketones 20 mg/dL (Negative) 08/22/19 14:11 Urine Blood Sm (Negative) 08/22/19 14:11 Urine Nitrite Neg (Negative) 08/22/19 14:11 Urine Bilirubin Neg (Negative) 08/22/19 14:11 Urine Urobilinogen 4.0 mg/dL (<2.0) 08/22/19 14:11 Ur Leukocyte Esterase Neg (Negative) 08/22/19 14:11 Urine WBC (Auto) 2.0 /HPF (0.0-6.0) 08/22/19 14:11 Urine RBC (Auto) 4.0 /HPF (0.0-6.0) 08/22/19 14:11 U Epithel Cells (Auto) 1.0 /HPF (0-13.0) 08/22/19 14:11 Active Medications - Current Medications Current Medications: Generic Name Dose Route Start Last Admin Trade Name Freq PRN Reason Stop Dose Admin Acetaminophen 650 mg 08/22/19 17:02 08/22/19 20:30 Tylenol PO 650 mg Q4H PRN Administration Pain MILD(1-3)/Fever >100.5/MILES Albuterol 2.5 mg 08/22/19 17:02 Proventil IH Q4HRT PRN Shortness Of Breath Amlodipine Besylate 10 mg 08/23/19 10:00 08/24/19 16:16 Amlodipine PO 10 mg QDAY NADJA Administration Dextrose 50 ml 08/22/19 17:07 D50w (25gm) Syringe IV Q30MIN PRN Hypoglycemia Famotidine 20 mg 08/22/19 22:00 08/24/19 10:00 Pepcid PO Not Given BID NADJA Folic Acid 1 mg 08/23/19 10:00 08/24/19 16:16 Folvite PO 1 mg QDAY NADJA Administration Heparin Sodium (Porcine) 5,000 unit 08/23/19 22:00 08/24/19 10:00 Heparin SUB-Q Not Given Q12HR NADJA Sodium Chloride 1,000 mls @ 100 mls/hr 08/22/19 18:00 08/24/19 09:17 Nacl 0.9% 1000 Ml IV 100 mls/hr DIRECT NADJA Administration Piperacillin Sod/Tazobactam Sod 4.5 gm in 100 mls @ 200 mls/hr 08/23/19 14:00 08/24/19 05:25 Zosyn/Ns 4.5gm/100ml IV 200 mls/hr Q8HR NADJA Administration Protocol Insulin Human Lispro 0 unit 08/22/19 18:00 08/24/19 15:09 Humalog SUB-Q Not Given Q6HR [facility] Protocol Lorazepam 2 mg 08/22/19 17:08 08/22/19 20:38 Ativan IV 2 mg Q1HR PRN Administration CIWA-Ar 8-15 Mirtazapine 15 mg 08/22/19 22:00 08/23/19 22:04 Remeron PO 15 mg QHS NADJA Administration Morphine Sulfate 2 mg 08/22/19 17:02 08/24/19 09:01 Morphine IV 2 mg Q4H PRN Administration Pain, Moderate (4-6) Nicotine 21 mg 08/22/19 20:00 08/24/19 16:16 Habitrol TD 21 mg QDAY NADJA Administration Ondansetron HCl 4 mg 08/22/19 17:02 Zofran IV Q8H PRN Nausea And Vomiting Oxycodone/Acetaminophen 1 tab 08/22/19 17:02 08/23/19 18:42 Percocet 5/325 PO 1 tab Q6H PRN Administration Pain, Moderate (4-6) Sodium Chloride 10 ml 08/22/19 22:00 08/24/19 09:20 Sodium Chloride Flush Syringe 10 Ml IV 10 ml BID NADJA Administration Sodium Chloride 10 ml 08/22/19 17:02 Sodium Chloride Flush Syringe 10 Ml IV PRN PRN LINE FLUSH Thiamine HCl 100 mg 08/23/19 10:00 08/24/19 16:16 Vitamin B-1 PO 100 mg QDAY NADJA Administration
[2019-08-24] MEDS ORDERED: VANCOMYCIN/NS 1 GM/250 ML 1 GM/250 ML BAG IV SCH (18:00)
[2019-08-24] MEDS ORDERED: SODIUM CHLORIDE 0.9% 500 ML 500 ML IV ONE (18:52)
--- NOTE | 2019-08-24 18:57 | Post Anesthesia Evaluation ---
- Post Anesthesia Evaluation Patient Participated: Yes Airway Patent: Yes Stable Respiratory Function: Yes Nausea/Vomiting: No Temp > 96.8F: Yes Pain Manageable: Yes Adequeate Hydration: Yes Anesthesia Complications: No Block Receding Appropriately: Not Applicable Patient on Ventilator: No
[2019-08-24 19:00] LABS: Hematocrit 42.2 % (35.5-45.6); Hemoglobin 14.7 gm/dl (11.8-15.2); Mean Corpuscular HGB Conc 35 % (32-34); Mean Corpuscular Volume 89 fl (84-94); Red Blood Count 4.72 M/mm3 (3.65-5.03); Red Cell Distribution Width 15.1 % (13.2-15.2)
[2019-08-24 19:19] LABS: Platelet Count 75 K/mm3 (140-440)
[2019-08-24] MEDS: MIRTAZAPINE 15 MG TAB PO SCH (21:28)
[2019-08-24] MEDS: ACETAMINOPHEN 325 MG TAB PO PRN (21:28)
[2019-08-25] MEDS: MORPHINE 2 MG/1 ML INJ IV PRN ×2 (02:59→09:06)
[2019-08-25] MEDS: SODIUM CHLORIDE 0.9% 1000 ML 1,000 ML IV SCH ×3 (02:59→20:27)
[2019-08-25 04:49] LABS: Basophils % (Auto) 0.4 % (0.0-1.8); Eosinophils % (Auto) 0.3 % (0.0-4.3); Hematocrit 38.9 % (35.5-45.6); Hemoglobin 13.3 gm/dl (11.8-15.2); Lymphocytes # (Auto) 1.1 K/mm3 (1.2-5.4); Lymphocytes % (Auto) 16.2 % (13.4-35.0); Mean Corpuscular HGB Conc 34 % (32-34); Mean Corpuscular Volume 90 fl (84-94); Monocytes % (Auto) 15.3 % (0.0-7.3); Red Blood Count 4.32 M/mm3 (3.65-5.03)
[2019-08-25 04:57] LABS: BUN/Creatinine Ratio 30; Blood Urea Nitrogen 15 mg/dL (9-20); Calcium 8.2 mg/dL (8.4-10.2); Hemolysis Index 1
[2019-08-25 05:03] LABS: Platelet Count 73 K/mm3 (140-440)
[2019-08-25] MEDS: PIPERACIL/TAZOBACTA 4.5/NS 100 4.5 GM/100 ML VIAL IV SCH ×3 (05:28→23:10)
[2019-08-25] MEDS: INSULIN LISPRO 100 UNIT/ML SUB-Q SCH ×5 (07:25→22:13)
[2019-08-25] MEDS: THIAMINE 100 MG TAB PO SCH (09:06)
[2019-08-25] MEDS: NICOTINE 21 MG/24 HR PATCH TD SCH (09:06)
[2019-08-25] MEDS: FAMOTIDINE 20 MG TAB PO SCH ×2 (09:06→21:21)
[2019-08-25] MEDS: FOLIC ACID 1 MG TAB PO SCH (09:07)
[2019-08-25] MEDS: amLODIPine 10 MG TAB PO SCH (09:07)
--- NOTE | 2019-08-25 11:27 | Progress Note ---
Assessment and Plan POD#1 s/p I&D with debridement of left foot abscess and necrotic skin. stable, but episode of febrile. no leukocytosis. currently on zosyn, consulted ID to give recommendations for antibiotic coverages since pre-chaparro culture is gram pos cocci. Wound care recommends BID dakins solution dressing changes. will examine wound tomorrow. if skin edges appear to not be viable will return to OR for further debridement. Subjective Date of service: 08/25/19 Narrative: Overnight dressing was bleeding through with sero-sanguinous fluid. dressing was reinforced, and heparin was held. Had a fever over night. This morning, he says the pain in his foot is slightly improved, but he has more tenderness in his posterior calf. Objective Vital Signs - 12hr 08/25/19 08/25/19 08/25/19 00:03 02:59 03:29 Temperature 98.3 F Pulse Rate 93 H Respiratory 18 17 17 Rate Blood Pressure 128/76 O2 Sat by Pulse 94 Oximetry 08/25/19 08/25/19 08/25/19 04:58 07:38 09:01 Temperature 99.0 F 99.9 F H Pulse Rate 90 99 H Respiratory 18 18 Rate Blood Pressure 142/83 158/94 O2 Sat by Pulse 94 97 97 Oximetry 08/25/19 09:07 Temperature Pulse Rate 99 H Respiratory Rate Blood Pressure 158/94 O2 Sat by Pulse Oximetry - Musculoskeletal other (left foot continues to be edemetous. erythema still pronounced and traveling to above the ankle. consistent with yesterday's appearance. no acitve bleeding when dressing removed. no foul odor, no purulence expressed. erythema does not spread to the lateral and posterior foot/calf. ~2x2cm flap of skin over the medial maleoulus is showing some ischemia. Foot is tender to maipulation. It was redressed by wound care. ) - Labs 08/25/19 04:29 08/25/19 04:29 Diabetes panel 08/25/19 Range/Units 04:29 Sodium 133 L (137-145) mmol/L Potassium 3.4 L D (3.6-5.0) mmol/L Chloride 99.9 (98-107) mmol/L Carbon Dioxide 22 (22-30) mmol/L BUN 15 (9-20) mg/dL Creatinine 0.5 L D (0.8-1.5) mg/dL Glucose 202 H (75-100) mg/dL Calcium 8.2 L (8.4-10.2) mg/dL Calcium panel 08/25/19 Range/Units 04:29 Calcium 8.2 L (8.4-10.2) mg/dL Pituitary panel 08/25/19 Range/Units 04:29 Sodium 133 L (137-145) mmol/L Potassium 3.4 L D (3.6-5.0) mmol/L Chloride 99.9 (98-107) mmol/L Carbon Dioxide 22 (22-30) mmol/L BUN 15 (9-20) mg/dL Creatinine 0.5 L D (0.8-1.5) mg/dL Glucose 202 H (75-100) mg/dL Calcium 8.2 L (8.4-10.2) mg/dL Adrenal panel 08/25/19 Range/Units 04:29 Sodium 133 L (137-145) mmol/L Potassium 3.4 L D (3.6-5.0) mmol/L Chloride 99.9 (98-107) mmol/L Carbon Dioxide 22 (22-30) mmol/L BUN 15 (9-20) mg/dL Creatinine 0.5 L D (0.8-1.5) mg/dL Glucose 202 H (75-100) mg/dL Calcium 8.2 L (8.4-10.2) mg/dL
[2019-08-25] MEDS: ACETAMINOPHEN 325 MG TAB PO PRN (11:49)
--- NOTE | 2019-08-25 15:06 | Vascular Lab Report ---
DUPLEX DOPPLER LOWER EXTREMITY VEINS, LEFT INDICATION: increased pain and swelling left leg. TECHNIQUE: Duplex doppler imaging was performed through the veins of the left lower extremity using venous compression and other maneuvers. COMPARISON: No relevant prior imaging study available. FINDINGS: Left Common femoral vein: Negative. Left Superficial femoral vein: Negative. Left Popliteal vein: Negative. Left Calf veins: Positive for acute DVT in the posterior tibial vein. Additional findings: Superficial venous thrombosis is noted in the greater saphenous vein in the dist al calf. IMPRESSION: Positive for DVT in the posterior tibial vein. Positive for superficial venous thrombosis in the gre ater saphenous vein. Signer Name: Davis Foy Jr, MD Signed: 08/25/2019 3:01 PM Workstation Name: [id number]
--- NOTE | 2019-08-25 15:59 | Consultation ---
History of Present Illness - Reason for Consult Consult date: 08/25/19 - History of Present Illness 54-year-old male with a past medical history of diabetes, alcohol abuse, nicotine abuse presents to the hospital complaining of increased redness, pain, and foul-smelling discharge from his left foot. He notes the symptoms began 1 week prior to admission, and it became significantly worse 3 days prior to admission. He complains of associated swelling, and that the pain is worse when standing. He was started on antibiotics, and taken for MRI which showed large abscess in the foot and ankle, but no osteomyelitis. He was subsequently taken to the OR, where the abscess was drained and sent for culture. Necrotic tissue was excised from the wound. Currently he complains of pain in the foot, but no other acute issues. Currently febrile to 100.7 and tachycardic. Currently receiving Zosyn. Had a normal white count. Blood cultures are no growth to date, and surgical cultures of the foot abscess are no growth to date as well. Imaging personally reviewed: MRI: Extensive abscess, no osteomyelitis Review of Systems: Bold if positive, otherwise negative General: fevers, chills, rigors HEENT: visual disturbance, diplopia, eye pain Respiratory: cough, sputum, hemoptysis, shortness of breath Cardiovascular: chest pain, syncope Gastrointestinal: nausea, vomiting, diarrhea, abdominal pain Genitourinary: dysuria, hematuria, flank pain Musculoskeletal: neck pain, back pain, joint pain, edema Neurologic: headaches, seizures Hematologic: easy bruising or bleeding Endocrine: night sweats, acute weight loss Skin: rash, jaundice, redness Psychiatric: suicidal, homicidal ideation Past History Past Medical History: diabetes, hypertension, hyperlipidemia, other (see hpi) Past Surgical History: appendectomy, Other (Left great toe amputation) Social history: single, alcohol abuse. denies: smoking, prescription drug abuse Family history: diabetes, hypertension Medications and Allergies Allergies Allergy/AdvReac Type Severity Reaction Status Date / Time vancomycin AdvReac Rash Verified 08/22/19 16:52 Home Medications Medication Instructions Recorded Confirmed Last Taken Type Famotidine [Pepcid] 20 mg PO BID #28 tablet 05/18/18 08/23/19 08/21/19 21:00 Rx Folic Acid [Folvite] 1 mg PO QDAY #30 tablet 05/18/18 08/24/19 08/17/19 Rx Mirtazapine [Remeron 15mg TAB] 15 mg PO QHS #30 tablet 05/18/18 08/23/19 08/22/19 21:00 Rx Nicotine [Habitrol] 21 mg TD QDAY #7 patch 05/18/18 08/23/19 08/22/19 21:00 Rx Thiamine [Vitamin B-1] 100 mg PO QDAY #30 tablet 05/18/18 08/24/19 08/17/19 Rx amLODIPine 10 mg PO QDAY #30 tablet 05/18/18 08/23/19 08/21/19 21:00 Rx metFORMIN [Glucophage] 500 mg PO BID #60 tablet 05/18/18 08/23/19 08/21/19 21:00 Rx Active Meds: Active Medications Acetaminophen (Tylenol) 650 mg PO Q4H PRN PRN Reason: Pain MILD(1-3)/Fever >100.5/MILES Last Admin: 08/25/19 11:49 Dose: 650 mg Documented by: Albuterol (Proventil) 2.5 mg IH Q4HRT PRN PRN Reason: Shortness Of Breath Amlodipine Besylate (Amlodipine) 10 mg PO QDAY [facility] Last Admin: 08/25/19 09:07 Dose: 10 mg Documented by: Dextrose (D50w (25gm) Syringe) 50 ml IV Q30MIN PRN PRN Reason: Hypoglycemia Famotidine (Pepcid) 20 mg PO BID [facility] Last Admin: 08/25/19 09:06 Dose: 20 mg Documented by: Folic Acid (Folvite) 1 mg PO QDAY [facility] Last Admin: 08/25/19 09:07 Dose: 1 mg Documented by: Sodium Chloride (Nacl 0.9% 1000 Ml) 1,000 mls @ 150 mls/hr IV DIRECT [facility] Last Admin: 08/25/19 11:52 Dose: 100 mls/hr Documented by: Piperacillin Sod/Tazobactam Sod (Zosyn/Ns 4.5gm/100ml) 4.5 gm in 100 mls @ 200 mls/hr IV Q8HR [facility]; Protocol Last Admin: 08/25/19 14:45 Dose: 200 mls/hr Documented by: Insulin Human Lispro (Humalog) 0 unit SUB-Q Q6HR [facility]; Protocol Last Admin: 08/25/19 11:50 Dose: 6 unit Documented by: Lorazepam (Ativan) 2 mg IV Q1HR PRN PRN Reason: CIWA-Ar 8-15 Last Admin: 08/22/19 20:38 Dose: 2 mg Documented by: Mirtazapine (Remeron) 15 mg PO QHS [facility] Last Admin: 08/24/19 21:28 Dose: 15 mg Documented by: Morphine Sulfate (Morphine) 2 mg IV Q4H PRN PRN Reason: Pain, Moderate (4-6) Last Admin: 08/25/19 09:06 Dose: 2 mg Documented by: Nicotine (Habitrol) 21 mg TD QDAY [facility] Last Admin: 08/25/19 09:06 Dose: 21 mg Documented by: Ondansetron HCl (Zofran) 4 mg IV Q8H PRN PRN Reason: Nausea And Vomiting Oxycodone/Acetaminophen (Percocet 5/325) 1 tab PO Q6H PRN PRN Reason: Pain, Moderate (4-6) Last Admin: 08/23/19 18:42 Dose: 1 tab Documented by: Sodium Chloride (Sodium Chloride Flush Syringe 10 Ml) 10 ml IV BID [facility] Last Admin: 08/25/19 09:40 Dose: Not Given Documented by: Sodium Chloride (Sodium Chloride Flush Syringe 10 Ml) 10 ml IV PRN PRN PRN Reason: LINE FLUSH Sodium Hypochlorite (Dakin's Half Strength) 1 applic TP BID [facility] Thiamine HCl (Vitamin B-1) 100 mg PO QDAY [facility] Last Admin: 08/25/19 09:06 Dose: 100 mg Documented by: Physical Examination - Physical Exam Narrative exam: Constitutional: Alert, cooperative. No acute distress Head, Ears, Nose: Normocephalic, atraumatic. External ears, nose normal Eyes: Conjunctivae/corneas clear. No icterus. No ptosis. Neck: Supple, no meningeal signs Oral: dentition fair, no thrush Cardiovascular: S1, S2 normal. Respiratory: Good air entry, clear to auscultation bilaterally GI: Soft, non-tender; bowel sounds normal. No peritoneal signs. Musculoskeletal: L foot bandaged Skin: No rash or abscess Hem/Lymphatic: No palpable cervical or supraclavicular nodes. No lymphangitis Psych: Mood ok. Affect normal Neurological: Awake, alert, oriented. No gross abnormality - Constitutional Vitals: Vital Signs Temp Pulse Resp BP Pulse Ox 100.7 F H 94 H 20 139/78 95 08/25/19 11:17 08/25/19 11:17 08/25/19 11:17 08/25/19 11:17 08/25/19 11:17 Temperature -Last 24 Hours Temperature 100.7 F Temperature 99.9 F Temperature 99.0 F Temperature 98.3 F Temperature 101.7 F Temperature 100.3 F Results - Labs CBC & Chem 7: 08/25/19 17:00 08/25/19 04:29 Labs: Abnormal lab results 08/24/19 08/24/19 08/24/19 Range/Units 18:06 18:49 23:10 MCHC 35 H (32-34) % Plt Count 75 L (140-440) K/mm3 [place] % (Auto) (0.0-7.3) % Lymph # (1.2-5.4) K/mm3 [place] # (0.0-0.8) K/mm3 Sodium (137-145) mmol/L Potassium (3.6-5.0) mmol/L Creatinine (0.8-1.5) mg/dL Glucose (75-100) mg/dL POC Glucose 317 H 344 H (70-105) Calcium (8.4-10.2) mg/dL 08/25/19 08/25/19 08/25/19 Range/Units 04:29 04:29 06:48 MCHC (32-34) % Plt Count 73 L (140-440) K/mm3 [place] % (Auto) 15.3 H (0.0-7.3) % Lymph # 1.1 L (1.2-5.4) K/mm3 [place] # 1.0 H (0.0-0.8) K/mm3 Sodium 133 L (137-145) mmol/L Potassium 3.4 L D (3.6-5.0) mmol/L Creatinine 0.5 L D (0.8-1.5) mg/dL Glucose 202 H (75-100) mg/dL POC Glucose 210 H (70-105) Calcium 8.2 L (8.4-10.2) mg/dL 08/25/19 Range/Units 11:27 MCHC (32-34) % Plt Count (140-440) K/mm3 [place] % (Auto) (0.0-7.3) % Lymph # (1.2-5.4) K/mm3 [place] # (0.0-0.8) K/mm3 Sodium (137-145) mmol/L Potassium (3.6-5.0) mmol/L Creatinine (0.8-1.5) mg/dL Glucose (75-100) mg/dL POC Glucose 257 H (70-105) Calcium (8.4-10.2) mg/dL Assessment and Plan Cultures: 08/24 blood culture - NGTD 08/24 surgical culture - NGTD A/P: 54 yo m PMHx DM2, EtOH abuse, nicotine abuse admitted with gangrene of the L foot. 1. Acute sepsis secondary to L foot gangrene and abscess - given necrotic change would add 3 days of clindamycin for toxin production prevention. Cultures have gram stain with GPC in pairs, not consistent with Staph, so for now would continue with Zosyn and added clinda. If required, will add daptomycin inpatient. No evidence of osteomyelitis on MRI, however given abscess abutted the bone, there is always concern for infection. At present would recommend treatment as abscess/necrosis/cellulitis for a 2 week course. At risk of limb loss. 2. DM2 - recommend tight glycemic control for improved wound healing. 3. Nicotine abuse - recommended cessation for improved wound healing 4. Vancomycin allergy - not true allergy per patient. Says he gets red man syndrome, resolved with Benadryl. Red man syndrome can also be avoided by infusing vancomycin at half rate Recs: - continue pip-rose 4.5g q8h - start clinda 900mg q8h x 3 days - follow up cultures - start vancomycin goal trough 15-20 dosed by pharmacy - de-escalate antibiotics as appropriate Thank you for the consult, we will continue to follow. MD [facility] ([facility]) M: [phone] O: [phone] F: [phone]
--- NOTE | 2019-08-25 16:41 | Progress Note ---
Assessment and Plan Assessment and plan: --Acute LE DVT: Posterior tibial vein DVT Positive for superficial venous thrombosis in the greater saphenous vein Anticoagulation with heparin drip standard protocol Discussed with vascular and surgery --Left foot abscess; surgery consulted Status post incision drainage, debridement of necrotic tissue continue wound care, patient reports allergic to vancomycin[will dc vanc] continue Zosyn, consult ID --Sepsis. Continue IV antibiotics. Follow-up blood cultures, wound cultures Etiology secondary to LLE gangrene. --Left lower extremity abscess/gangrene. Vascular following. MRI reveals extensive abscess s/p I&D, No evidence of osteomyelitis. --H/O Lt.Great toe amputation --Diabetes mellitus type 2. Continue Accu-Cheks and sliding scale insulin. Tight glycemic control to promote wound healing. --EtOH abuse. CIWA protocol. --Severe malnutrition/hypoalbuminemia; nutrition supplements Nutrition consult --History CVA. Supportive care --DVT prophylaxis; heparin Duplicator Punch Operator recommendations noted and appreciated Monitor clinically and adjust management as needed History Interval history: Patient seen and examined medical records reviewed Patient complains of some pain, And insomnia Alert awake oriented not in acute distress Vital signs reviewed Hospitalist Physical - Constitutional Vitals: Temp Pulse Resp BP Pulse Ox 98.4 F 86 18 117/73 95 08/25/19 15:34 08/25/19 15:34 08/25/19 15:34 08/25/19 15:34 08/25/19 15:34 General appearance: Present: no acute distress, well-nourished - EENT Eyes: Present: PERRL, EOM intact - Neck Neck: Present: supple, normal ROM - Respiratory Respiratory effort: normal Respiratory: bilateral: diminished, negative: rales, rhonchi, wheezing - Cardiovascular Rhythm: regular Heart Sounds: Present: S1 & S2 - Extremities Extremities: abnormal (Foot wound dressing in place) - Abdominal General gastrointestinal: soft, non-tender, non-distended, normal bowel sounds - Integumentary Integumentary: Present: clear, warm - Psychiatric Psychiatric: appropriate mood/affect, cooperative - Neurologic Neurologic: CNII-XII intact, moves all extremities Results - Labs CBC & Chem 7: 08/25/19 17:00 08/25/19 04:29 Labs: Laboratory Last Values WBC 6.8 K/mm3 (4.5-11.0) 08/25/19 04:29 RBC 4.32 M/mm3 (3.65-5.03) 08/25/19 04:29 Hgb 13.3 gm/dl (11.8-15.2) 08/25/19 04:29 Hct 38.9 % (35.5-45.6) 08/25/19 04:29 MCV 90 fl (84-94) 08/25/19 04:29 MCH 31 pg (28-32) 08/25/19 04:29 MCHC 34 % (32-34) 08/25/19 04:29 RDW 15.0 % (13.2-15.2) 08/25/19 04:29 Plt Count 73 K/mm3 (140-440) L 08/25/19 04:29 Lymph % (Auto) 16.2 % (13.4-35.0) 08/25/19 04:29 [place] % (Auto) 15.3 % (0.0-7.3) H 08/25/19 04:29 Eos % (Auto) 0.3 % (0.0-4.3) 08/25/19 04:29 Baso % (Auto) 0.4 % (0.0-1.8) 08/25/19 04:29 Lymph # 1.1 K/mm3 (1.2-5.4) L 08/25/19 04:29 [place] # 1.0 K/mm3 (0.0-0.8) H 08/25/19 04:29 Eos # 0.0 K/mm3 (0.0-0.4) 08/25/19 04:29 Baso # 0.0 K/mm3 (0.0-0.1) 08/25/19 04:29 Add Manual Diff Complete 08/23/19 11:54 Total Counted 100 08/23/19 11:54 Seg Neutrophils % 67.8 % (40.0-70.0) 08/25/19 04:29 Seg Neuts % (Manual) 63.0 % (40.0-70.0) 08/23/19 11:54 Band Neutrophils % 20.0 % 08/23/19 11:54 Lymphocytes % (Manual) 11.0 % (13.4-35.0) L 08/23/19 11:54 Reactive Lymphs % (Man) 0 % 08/23/19 11:54 Monocytes % (Manual) 5.0 % (0.0-7.3) 08/23/19 11:54 Eosinophils % (Manual) 0 % (0.0-4.3) 08/23/19 11:54 Basophils % (Manual) 0 % (0.0-1.8) 08/23/19 11:54 Metamyelocytes % 1.0 % 08/23/19 11:54 Myelocytes % 0 % 08/23/19 11:54 Promyelocytes % 0 % 08/23/19 11:54 Blast Cells % 0 % 08/23/19 11:54 Nucleated RBC % Not Reportable 08/23/19 11:54 Seg Neutrophils # 4.6 K/mm3 (1.8-7.7) 08/25/19 04:29 Seg Neutrophils # Man 5.5 K/mm3 (1.8-7.7) 08/23/19 11:54 Band Neutrophils # 1.8 K/mm3 08/23/19 11:54 Lymphocytes # (Manual) 1.0 K/mm3 (1.2-5.4) L 08/23/19 11:54 Abs React Lymphs (Man) 0.0 K/mm3 08/23/19 11:54 Monocytes # (Manual) 0.4 K/mm3 (0.0-0.8) 08/23/19 11:54 Eosinophils # (Manual) 0.0 K/mm3 (0.0-0.4) 08/23/19 11:54 Basophils # (Manual) 0.0 K/mm3 (0.0-0.1) 08/23/19 11:54 Metamyelocytes # 0.1 K/mm3 08/23/19 11:54 Myelocytes # 0.0 K/mm3 08/23/19 11:54 Promyelocytes # 0.0 K/mm3 08/23/19 11:54 Blast Cells # 0.0 K/mm3 08/23/19 11:54 WBC Morphology Not Reportable 08/23/19 11:54 Hypersegmented Neuts Not Reportable 08/23/19 11:54 Hyposegmented Neuts Not Reportable 08/23/19 11:54 Hypogranular Neuts Not Reportable 08/23/19 11:54 Smudge Cells Not Reportable 08/23/19 11:54 Toxic Granulation Not Reportable 08/23/19 11:54 Toxic Vacuolation Not Reportable 08/23/19 11:54 Dohle Bodies Not Reportable 08/23/19 11:54 Pelger-Huet Anomaly Not Reportable 08/23/19 11:54 Jazmyn Rods Not Reportable 08/23/19 11:54 Platelet Estimate Consistent w auto 08/23/19 11:54 Clumped Platelets Not Reportable 08/23/19 11:54 Plt Clumps, EDTA Not Reportable 08/23/19 11:54 Large Platelets Not Reportable 08/23/19 11:54 Giant Platelets Not Reportable 08/23/19 11:54 Platelet Satelliting Not Reportable 08/23/19 11:54 Plt Morphology Comment Not Reportable 08/23/19 11:54 RBC Morphology Normal 08/23/19 11:54 Dimorphic RBCs Not Reportable 08/23/19 11:54 Polychromasia Not Reportable 08/23/19 11:54 Hypochromasia Not Reportable 08/23/19 11:54 Poikilocytosis Not Reportable 08/23/19 11:54 Anisocytosis Not Reportable 08/23/19 11:54 Microcytosis Not Reportable 08/23/19 11:54 Macrocytosis Not Reportable 08/23/19 11:54 Spherocytes Not Reportable 08/23/19 11:54 Pappenheimer Bodies Not Reportable 08/23/19 11:54 Sickle Cells Not Reportable 08/23/19 11:54 Target Cells Not Reportable 08/23/19 11:54 Tear Drop Cells Not Reportable 08/23/19 11:54 Ovalocytes Not Reportable 08/23/19 11:54 Helmet Cells Not Reportable 08/23/19 11:54 [place]ra Bodies Not Reportable 08/23/19 11:54 [place] Rings Not Reportable 08/23/19 11:54 [place] Cells Not Reportable 08/23/19 11:54 Bite Cells Not Reportable 08/23/19 11:54 Crenated Cell Not Reportable 08/23/19 11:54 Elliptocytes Not Reportable 08/23/19 11:54 Acanthocytes (Spur) Not Reportable 08/23/19 11:54 Rouleaux Not Reportable 08/23/19 11:54 Hemoglobin C Crystals Not Reportable 08/23/19 11:54 Schistocytes Not Reportable 08/23/19 11:54 Malaria parasites Not Reportable 08/23/19 11:54 [place] Bodies Not Reportable 08/23/19 11:54 Hem Pathologist Commnt No 08/23/19 11:54 VBG pH 7.362 (7.320-7.420) 08/22/19 13:23 Sodium 133 mmol/L (137-145) L 08/25/19 04:29 Potassium 3.4 mmol/L (3.6-5.0) L D 08/25/19 04:29 Chloride 99.9 mmol/L (98-107) 08/25/19 04:29 Carbon Dioxide 22 mmol/L (22-30) 08/25/19 04:29 Anion Gap 15 mmol/L 08/25/19 04:29 BUN 15 mg/dL (9-20) 08/25/19 04:29 Creatinine 0.5 mg/dL (0.8-1.5) L D 08/25/19 04:29 Estimated GFR > 60 ml/min 08/25/19 04:29 BUN/Creatinine Ratio 30 % 08/25/19 04:29 Glucose 202 mg/dL (75-100) H 08/25/19 04:29 POC Glucose 257 (70-105) H 08/25/19 11:27 Lactic Acid 1.90 mmol/L (0.7-2.0) 08/22/19 15:40 Calcium 8.2 mg/dL (8.4-10.2) L 08/25/19 04:29 Total Bilirubin 1.20 mg/dL (0.1-1.2) 08/23/19 11:54 AST 50 units/L (5-40) H 08/23/19 11:54 ALT 44 units/L (7-56) 08/23/19 11:54 Alkaline Phosphatase 128 units/L (35-129) 08/23/19 11:54 Total Protein 6.4 g/dL (6.3-8.2) 08/23/19 11:54 Albumin 2.6 g/dL (3.9-5) L 08/23/19 11:54 Albumin/Globulin Ratio 0.7 % 08/23/19 11:54 Urine Color Yellow (Yellow) 08/22/19 14:11 Urine Turbidity Clear (Clear) 08/22/19 14:11 Urine pH 5.0 (5.0-7.0) 08/22/19 14:11 Ur Specific [place] 1.028 (1.003-1.030) 08/22/19 14:11 Urine Protein <15 mg/dl mg/dL (Negative) 08/22/19 14:11 Urine Glucose (UA) >=500 mg/dL (Negative) 08/22/19 14:11 Urine Ketones 20 mg/dL (Negative) 08/22/19 14:11 Urine Blood Sm (Negative) 08/22/19 14:11 Urine Nitrite Neg (Negative) 08/22/19 14:11 Urine Bilirubin Neg (Negative) 08/22/19 14:11 Urine Urobilinogen 4.0 mg/dL (<2.0) 08/22/19 14:11 Ur Leukocyte Esterase Neg (Negative) 08/22/19 14:11 Urine WBC (Auto) 2.0 /HPF (0.0-6.0) 08/22/19 14:11 Urine RBC (Auto) 4.0 /HPF (0.0-6.0) 08/22/19 14:11 U Epithel Cells (Auto) 1.0 /HPF (0-13.0) 08/22/19 14:11 Active Medications - Current Medications Current Medications: Generic Name Dose Route Start Last Admin Trade Name Freq PRN Reason Stop Dose Admin Acetaminophen 650 mg 08/22/19 17:02 08/25/19 11:49 Tylenol PO 650 mg Q4H PRN Administration Pain MILD(1-3)/Fever >100.5/MILES Albuterol 2.5 mg 08/22/19 17:02 Proventil IH Q4HRT PRN Shortness Of Breath Amlodipine Besylate 10 mg 08/23/19 10:00 08/25/19 09:07 Amlodipine PO 10 mg QDAY [facility] Administration Dextrose 50 ml 08/22/19 17:07 D50w (25gm) Syringe IV Q30MIN PRN Hypoglycemia Famotidine 20 mg 08/22/19 22:00 08/25/19 09:06 Pepcid PO 20 mg BID [facility]JA Administration Folic Acid 1 mg 08/23/19 10:00 08/25/19 09:07 Folvite PO 1 mg QDAY [facility] Administration Sodium Chloride 1,000 mls @ 150 mls/hr 08/22/19 18:00 08/25/19 11:52 Nacl 0.9% 1000 Ml IV 100 mls/hr DIRECT [facility] Administration Piperacillin Sod/Tazobactam Sod 4.5 gm in 100 mls @ 200 mls/hr 08/23/19 14:00 08/25/19 14:45 Zosyn/Ns 4.5gm/100ml IV 200 mls/hr Q8HR [facility] Administration Protocol Clindamycin HCl 900 mg in 50 mls @ 100 mls/hr 08/25/19 17:00 Cleocin 900 Mg/50 Ml IV 08/28/19 16:59 Q8HR [facility] Protocol Heparin Sodium/Sodium Chloride 25,000 unit in 500 mls @ 28.32 mls/hr 08/25/19 17:00 Heparin/ 0.45% Nacl-25,000 Unit/500 Ml IV TITR NADJA Protocol 15 UNITS/KG/HR Insulin Human Lispro 0 unit 08/22/19 18:00 08/25/19 11:50 Humalog SUB-Q 6 unit Q6HR [facility] Administration Protocol Lorazepam 2 mg 08/22/19 17:08 08/22/19 20:38 Ativan IV 2 mg Q1HR PRN Administration CIWA-Ar 8-15 Mirtazapine 15 mg 08/22/19 22:00 08/24/19 21:28 Remeron PO 15 mg QHS [facility] Administration Morphine Sulfate 2 mg 08/22/19 17:02 08/25/19 09:06 Morphine IV 2 mg Q4H PRN Administration Pain, Moderate (4-6) Nicotine 21 mg 08/22/19 20:00 08/25/19 09:06 Habitrol TD 21 mg QDAY [facility] Administration Ondansetron HCl 4 mg 08/22/19 17:02 Zofran IV Q8H PRN Nausea And Vomiting Oxycodone/Acetaminophen 1 tab 08/22/19 17:02 08/23/19 18:42 Percocet 5/325 PO 1 tab Q6H PRN Administration Pain, Moderate (4-6) Sodium Chloride 10 ml 08/22/19 22:00 08/25/19 09:40 Sodium Chloride Flush Syringe 10 Ml IV Not Given BID [facility] Sodium Chloride 10 ml 08/22/19 17:02 Sodium Chloride Flush Syringe 10 Ml IV PRN PRN LINE FLUSH Sodium Hypochlorite 1 applic 08/25/19 22:00 Dakin's Half Strength TP BID NADJA Thiamine HCl 100 mg 08/23/19 10:00 08/25/19 09:06 Vitamin B-1 PO 100 mg QDAY [facility] Administration
[2019-08-25 17:42] LABS: Hematocrit 43.1 % (35.5-45.6); Hemoglobin 14.7 gm/dl (11.8-15.2)
[2019-08-25 18:04] LABS: INR 1.03 (0.87-1.13); Partial Thromboplastin Time 28.2 Sec. (24.2-36.6)
[2019-08-25] MEDS ORDERED: POTASSIUM CHLORIDE ER 20 MEQ TAB PO ONE (18:48)
[2019-08-25] MEDS ORDERED: VANCOMYCIN 1,750 MG in SODIUM CHLORIDE 0.9% 500 ML 500 ML IV SCH (19:00)
[2019-08-25] MEDS ORDERED: VANCOMYCIN PHARMACY TO DOSE IV SCH (19:00)
[2019-08-25] MEDS: diphenhydrAMINE 50 MG CAP PO PRN (20:23)
[2019-08-25] MEDS: HEPARIN/ 0.45% NACL DRIP 25,000 UNIT/500 ML BAG IV SCH (21:15)
[2019-08-25] MEDS: MIRTAZAPINE 15 MG TAB PO SCH (21:21)
[2019-08-25] MEDS: SODIUM HYPOCHLORITE, DAKIN'S 1/2 STRENGTH (0.25%) 473 ML TOPICAL SOLN TP SCH (22:00)
[2019-08-25] MEDS: guaiFENesin 100 MG/5 ML ORAL LIQD PO PRN (23:44)
[2019-08-25] MEDS: ZOLPIDEM 5 MG TAB PO PRN (23:44)
[2019-08-26] MEDS: ACETAMINOPHEN 325 MG TAB PO PRN (01:30)
[2019-08-26] MEDS: INSULIN LISPRO 100 UNIT/ML SUB-Q SCH ×4 (02:17→17:58)
[2019-08-26] MEDS: PIPERACIL/TAZOBACTA 4.5/NS 100 4.5 GM/100 ML VIAL IV SCH ×3 (06:17→21:30)
[2019-08-26] MEDS: VANCOMYCIN 1,500 MG in SODIUM CHLORIDE 0.9% 500 ML 500 ML IV SCH (07:07)
[2019-08-26] MEDS: diphenhydrAMINE 50 MG CAP PO PRN (07:30)
[2019-08-26] MEDS: amLODIPine 10 MG TAB PO SCH ×2 (08:55→10:00)
[2019-08-26] MEDS: THIAMINE 100 MG TAB PO SCH ×2 (08:55→10:00)
[2019-08-26] MEDS: FAMOTIDINE 20 MG TAB PO SCH ×3 (08:56→21:31)
[2019-08-26] MEDS: NICOTINE 21 MG/24 HR PATCH TD SCH ×2 (08:56→10:00)
[2019-08-26] MEDS: FOLIC ACID 1 MG TAB PO SCH (09:00)
[2019-08-26] MEDS: SODIUM HYPOCHLORITE, DAKIN'S 1/2 STRENGTH (0.25%) 473 ML TOPICAL SOLN TP SCH (11:00)
--- NOTE | 2019-08-26 11:24 | Progress Note ---
Assessment and Plan Cultures: 08/24 blood culture - NGTD 08/24 surgical biopsy culture - GPC in pairs 08/24 surgical culture - mod GPC in pairs A/P: 54 yo m PMHx DM2, EtOH abuse, nicotine abuse admitted with gangrene of the L foot. 1. Acute sepsis secondary to L foot gangrene and abscess - given necrotic change would add 3 days of clindamycin for toxin production prevention. Cultures have gram stain with GPC in pairs, not consistent with Staph, so for now would continue with Zosyn and added clinda. If required, will add daptomycin inpatient. No evidence of osteomyelitis on MRI, however given abscess abutted the bone, there is always concern for infection. At present would recommend treatment as abscess/necrosis/cellulitis for a 2 week course. At risk of limb loss. 2. DM2 - recommend tight glycemic control for improved wound healing. 3. Nicotine abuse - recommended cessation for improved wound healing 4. Vancomycin allergy - not true allergy per patient. Says he gets red man syndrome, resolved with Benadryl. Red man syndrome can also be avoided by infusing vancomycin at half rate Recs: - continue pip-rose 4.5g q8h - start clinda 900mg q8h x 3 days - follow up cultures - start vancomycin goal trough 15-20 dosed by pharmacy, recommend slow infusion to avoid red man syndrome. - Benadryl PRN for redness - de-escalate antibiotics as appropriate based on cultures Thank you for the consult, we will continue to follow. Marisela Mendoza MD [facility] ([facility]) M: [phone] O: [phone] F: [phone] Subjective Date of service: 08/26/19 Interval history: Ongoing pain in the foot, but no acute complaints. Febrile overnight to 100.6. Objective - Exam Narrative Exam: Constitutional: Alert, cooperative. No acute distress Head, Ears, Nose: Normocephalic, atraumatic. External ears, nose normal Eyes: Conjunctivae/corneas clear. No icterus. No ptosis. Neck: Supple, no meningeal signs Oral: dentition fair, no thrush Cardiovascular: S1, S2 normal. Respiratory: Good air entry, clear to auscultation bilaterally GI: Soft, non-tender; bowel sounds normal. No peritoneal signs. Musculoskeletal: L foot bandaged Skin: No rash or abscess Hem/Lymphatic: No palpable cervical or supraclavicular nodes. No lymphangitis Psych: Mood ok. Affect normal Neurological: Awake, alert, oriented. No gross abnormality - Constitutional Vitals: Vital Signs Temp Pulse Resp BP Pulse Ox 99.0 F 83 18 138/79 94 08/26/19 07:49 08/26/19 08:55 08/26/19 07:49 08/26/19 08:55 08/26/19 09:23 Temperature -Last 24 Hours Temperature 99.0 F Temperature 98.3 F Temperature 100.6 F Temperature 100.9 F Temperature 98.4 F - Labs CBC & Chem 7: 08/25/19 17:00 08/25/19 04:29 Labs: Abnormal lab results 08/25/19 08/25/19 08/25/19 Range/Units 11:27 17:00 17:39 Plt Count 100 L (140-440) K/mm3 Heparin Anti-Xa Level (0.3-0.7) U.I./ml POC Glucose 257 H 320 H (70-105) 08/25/19 08/26/19 08/26/19 Range/Units 21:57 04:13 06:57 Plt Count (140-440) K/mm3 Heparin Anti-Xa Level < 0.10 L (0.3-0.7) U.I./ml POC Glucose 394 H 185 H (70-105) 08/26/19 Range/Units 10:43 Plt Count (140-440) K/mm3 Heparin Anti-Xa Level < 0.10 L (0.3-0.7) U.I./ml POC Glucose (70-105)
[2019-08-26] MEDS: MORPHINE 2 MG/1 ML INJ IV PRN ×3 (11:37→22:28)
--- NOTE | 2019-08-26 11:45 | Progress Note ---
Assessment and Plan Assessment and plan: --Left foot abscess; surgery following Status post incision drainage, debridement of necrotic tissue continue wound care, patient reports allergic to vancomycin However ID clarified with the patient, continue Vancocin Zosyn And clindamycin --Acute LE DVT: Posterior tibial vein DVT Positive for superficial venous thrombosis in the greater saphenous vein Anticoagulation with heparin drip standard protocol Discussed with vascular and surgery --Sepsis. Continue IV antibiotics. Follow-up blood cultures, wound cultures gram negative rods ,follow sensitivities Etiology secondary to LLE gangrene. --Left lower extremity abscess/gangrene. Vascular following. MRI reveals extensive abscess s/p I&D, No evidence of osteomyelitis. --H/O Lt.Great toe amputation --Diabetes mellitus type 2. Continue Accu-Cheks and sliding scale insulin. Tight glycemic control to promote wound healing. --EtOH abuse. CIWA protocol. --Severe malnutrition/hypoalbuminemia; nutrition supplements Nutrition consult --History CVA. Supportive care --DVT prophylaxis; heparin Group Sales Representative recommendations noted and appreciated Monitor clinically and adjust management as needed History Interval history: Patient seen and examined medical records reviewed Patient complains of some pain no Other complaints Vital signs reviewed Hospitalist Physical - Constitutional Vitals: Temp Pulse Resp BP Pulse Ox 99.0 F 83 18 138/79 94 08/26/19 07:49 08/26/19 08:55 08/26/19 07:49 08/26/19 08:55 08/26/19 09:23 General appearance: Present: no acute distress, well-nourished - EENT Eyes: Present: PERRL, EOM intact - Neck Neck: Present: supple, normal ROM - Respiratory Respiratory effort: normal Respiratory: bilateral: diminished, negative: rales, rhonchi, wheezing - Cardiovascular Rhythm: regular Heart Sounds: Present: S1 & S2 - Extremities Extremities: abnormal (left foot in dressing/erythema and edema erythema and edema) Extremity abnormal: edema, erythema - Abdominal General gastrointestinal: soft, non-tender, non-distended, normal bowel sounds - Integumentary Integumentary: Present: clear, warm - Psychiatric Psychiatric: appropriate mood/affect, memory intact - Neurologic Neurologic: moves all extremities Results - Labs CBC & Chem 7: 08/25/19 17:00 08/25/19 04:29 Labs: Laboratory Last Values WBC 6.8 K/mm3 (4.5-11.0) 08/25/19 04:29 RBC 4.32 M/mm3 (3.65-5.03) 08/25/19 04:29 Hgb 14.7 gm/dl (11.8-15.2) 08/25/19 17:00 Hct 43.1 % (35.5-45.6) 08/25/19 17:00 MCV 90 fl (84-94) 08/25/19 04:29 MCH 31 pg (28-32) 08/25/19 04:29 MCHC 34 % (32-34) 08/25/19 04:29 RDW 15.0 % (13.2-15.2) 08/25/19 04:29 Plt Count 100 K/mm3 (140-440) L 08/25/19 17:00 Lymph % (Auto) 16.2 % (13.4-35.0) 08/25/19 04:29 [place] % (Auto) 15.3 % (0.0-7.3) H 08/25/19 04:29 Eos % (Auto) 0.3 % (0.0-4.3) 08/25/19 04:29 Baso % (Auto) 0.4 % (0.0-1.8) 08/25/19 04:29 Lymph # 1.1 K/mm3 (1.2-5.4) L 08/25/19 04:29 [place] # 1.0 K/mm3 (0.0-0.8) H 08/25/19 04:29 Eos # 0.0 K/mm3 (0.0-0.4) 08/25/19 04:29 Baso # 0.0 K/mm3 (0.0-0.1) 08/25/19 04:29 Add Manual Diff Complete 08/23/19 11:54 Total Counted 100 08/23/19 11:54 Seg Neutrophils % 67.8 % (40.0-70.0) 08/25/19 04:29 Seg Neuts % (Manual) 63.0 % (40.0-70.0) 08/23/19 11:54 Band Neutrophils % 20.0 % 08/23/19 11:54 Lymphocytes % (Manual) 11.0 % (13.4-35.0) L 08/23/19 11:54 Reactive Lymphs % (Man) 0 % 08/23/19 11:54 Monocytes % (Manual) 5.0 % (0.0-7.3) 08/23/19 11:54 Eosinophils % (Manual) 0 % (0.0-4.3) 08/23/19 11:54 Basophils % (Manual) 0 % (0.0-1.8) 08/23/19 11:54 Metamyelocytes % 1.0 % 08/23/19 11:54 Myelocytes % 0 % 08/23/19 11:54 Promyelocytes % 0 % 08/23/19 11:54 Blast Cells % 0 % 08/23/19 11:54 Nucleated RBC % Not Reportable 08/23/19 11:54 Seg Neutrophils # 4.6 K/mm3 (1.8-7.7) 08/25/19 04:29 Seg Neutrophils # Man 5.5 K/mm3 (1.8-7.7) 08/23/19 11:54 Band Neutrophils # 1.8 K/mm3 08/23/19 11:54 Lymphocytes # (Manual) 1.0 K/mm3 (1.2-5.4) L 08/23/19 11:54 Abs React Lymphs (Man) 0.0 K/mm3 08/23/19 11:54 Monocytes # (Manual) 0.4 K/mm3 (0.0-0.8) 08/23/19 11:54 Eosinophils # (Manual) 0.0 K/mm3 (0.0-0.4) 08/23/19 11:54 Basophils # (Manual) 0.0 K/mm3 (0.0-0.1) 08/23/19 11:54 Metamyelocytes # 0.1 K/mm3 08/23/19 11:54 Myelocytes # 0.0 K/mm3 08/23/19 11:54 Promyelocytes # 0.0 K/mm3 08/23/19 11:54 Blast Cells # 0.0 K/mm3 08/23/19 11:54 WBC Morphology Not Reportable 08/23/19 11:54 Hypersegmented Neuts Not Reportable 08/23/19 11:54 Hyposegmented Neuts Not Reportable 08/23/19 11:54 Hypogranular Neuts Not Reportable 08/23/19 11:54 Smudge Cells Not Reportable 08/23/19 11:54 Toxic Granulation Not Reportable 08/23/19 11:54 Toxic Vacuolation Not Reportable 08/23/19 11:54 Dohle Bodies Not Reportable 08/23/19 11:54 Pelger-Huet Anomaly Not Reportable 08/23/19 11:54 Jazmyn Rods Not Reportable 08/23/19 11:54 Platelet Estimate Consistent w auto 08/23/19 11:54 Clumped Platelets Not Reportable 08/23/19 11:54 Plt Clumps, EDTA Not Reportable 08/23/19 11:54 Large Platelets Not Reportable 08/23/19 11:54 Giant Platelets Not Reportable 08/23/19 11:54 Platelet Satelliting Not Reportable 08/23/19 11:54 Plt Morphology Comment Not Reportable 08/23/19 11:54 RBC Morphology Normal 08/23/19 11:54 Dimorphic RBCs Not Reportable 08/23/19 11:54 Polychromasia Not Reportable 08/23/19 11:54 Hypochromasia Not Reportable 08/23/19 11:54 Poikilocytosis Not Reportable 08/23/19 11:54 Anisocytosis Not Reportable 08/23/19 11:54 Microcytosis Not Reportable 08/23/19 11:54 Macrocytosis Not Reportable 08/23/19 11:54 Spherocytes Not Reportable 08/23/19 11:54 Pappenheimer Bodies Not Reportable 08/23/19 11:54 Sickle Cells Not Reportable 08/23/19 11:54 Target Cells Not Reportable 08/23/19 11:54 Tear Drop Cells Not Reportable 08/23/19 11:54 Ovalocytes Not Reportable 08/23/19 11:54 Helmet Cells Not Reportable 08/23/19 11:54 [place] Bodies Not Reportable 08/23/19 11:54 [place] Rings Not Reportable 08/23/19 11:54 [place] Cells Not Reportable 08/23/19 11:54 Bite Cells Not Reportable 08/23/19 11:54 Crenated Cell Not Reportable 08/23/19 11:54 Elliptocytes Not Reportable 08/23/19 11:54 Acanthocytes (Spur) Not Reportable 08/23/19 11:54 Rouleaux Not Reportable 08/23/19 11:54 Hemoglobin C Crystals Not Reportable 08/23/19 11:54 Schistocytes Not Reportable 08/23/19 11:54 Malaria parasites Not Reportable 08/23/19 11:54 [place] Bodies Not Reportable 08/23/19 11:54 Hem Pathologist Commnt No 08/23/19 11:54 PT 13.4 Sec. (12.2-14.9) 08/25/19 17:00 INR 1.03 (0.87-1.13) 08/25/19 17:00 APTT 28.2 Sec. (24.2-36.6) 08/25/19 17:00 Heparin Anti-Xa Level < 0.10 U.I./ml (0.3-0.7) L 08/26/19 10:43 VBG pH 7.362 (7.320-7.420) 08/22/19 13:23 Sodium 133 mmol/L (137-145) L 08/25/19 04:29 Potassium 3.4 mmol/L (3.6-5.0) L D 08/25/19 04:29 Chloride 99.9 mmol/L (98-107) 08/25/19 04:29 Carbon Dioxide 22 mmol/L (22-30) 08/25/19 04:29 Anion Gap 15 mmol/L 08/25/19 04:29 BUN 15 mg/dL (9-20) 08/25/19 04:29 Creatinine 0.5 mg/dL (0.8-1.5) L D 08/25/19 04:29 Estimated GFR > 60 ml/min 08/25/19 04:29 BUN/Creatinine Ratio 30 % 08/25/19 04:29 Glucose 202 mg/dL (75-100) H 08/25/19 04:29 POC Glucose 185 (70-105) H 08/26/19 06:57 Lactic Acid 1.90 mmol/L (0.7-2.0) 08/22/19 15:40 Calcium 8.2 mg/dL (8.4-10.2) L 08/25/19 04:29 Total Bilirubin 1.20 mg/dL (0.1-1.2) 08/23/19 11:54 AST 50 units/L (5-40) H 08/23/19 11:54 ALT 44 units/L (7-56) 08/23/19 11:54 Alkaline Phosphatase 128 units/L (35-129) 08/23/19 11:54 Total Protein 6.4 g/dL (6.3-8.2) 08/23/19 11:54 Albumin 2.6 g/dL (3.9-5) L 08/23/19 11:54 Albumin/Globulin Ratio 0.7 % 08/23/19 11:54 Urine Color Yellow (Yellow) 08/22/19 14:11 Urine Turbidity Clear (Clear) 08/22/19 14:11 Urine pH 5.0 (5.0-7.0) 08/22/19 14:11 Ur Specific [place] 1.028 (1.003-1.030) 08/22/19 14:11 Urine Protein <15 mg/dl mg/dL (Negative) 08/22/19 14:11 Urine Glucose (UA) >=500 mg/dL (Negative) 08/22/19 14:11 Urine Ketones 20 mg/dL (Negative) 08/22/19 14:11 Urine Blood Sm (Negative) 08/22/19 14:11 Urine Nitrite Neg (Negative) 08/22/19 14:11 Urine Bilirubin Neg (Negative) 08/22/19 14:11 Urine Urobilinogen 4.0 mg/dL (<2.0) 08/22/19 14:11 Ur Leukocyte Esterase Neg (Negative) 08/22/19 14:11 Urine WBC (Auto) 2.0 /HPF (0.0-6.0) 08/22/19 14:11 Urine RBC (Auto) 4.0 /HPF (0.0-6.0) 08/22/19 14:11 U Epithel Cells (Auto) 1.0 /HPF (0-13.0) 08/22/19 14:11 Active Medications - Current Medications Current Medications: Generic Name Dose Route Start Last Admin Trade Name Freq PRN Reason Stop Dose Admin Acetaminophen 650 mg 08/22/19 17:02 08/26/19 01:30 Tylenol PO 650 mg Q4H PRN Administration Pain MILD(1-3)/Fever >100.5/MILES Albuterol 2.5 mg 08/22/19 17:02 Proventil IH Q4HRT PRN Shortness Of Breath Amlodipine Besylate 10 mg 08/23/19 10:00 08/26/19 08:55 Amlodipine PO 10 mg QDAY NADJA Administration Dextrose 50 ml 08/22/19 17:07 D50w (25gm) Syringe IV Q30MIN PRN Hypoglycemia Diphenhydramine HCl 50 mg 08/25/19 18:31 08/26/19 07:30 Benadryl PO 50 mg Q6H PRN Administration Rash Famotidine 20 mg 08/22/19 22:00 08/26/19 08:56 Pepcid PO 20 mg BID NADJA Administration Folic Acid 1 mg 08/23/19 10:00 08/25/19 09:07 Folvite PO 1 mg QDAY NADJA Administration Guaifenesin 200 mg 08/25/19 18:43 08/25/19 23:44 Robitussin PO 200 mg Q4H PRN Administration Cough Sodium Chloride 1,000 mls @ 150 mls/hr 08/22/19 18:00 08/25/19 20:27 Nacl 0.9% 1000 Ml IV 100 mls/hr DIRECT NADJA Administration Piperacillin Sod/Tazobactam Sod 4.5 gm in 100 mls @ 200 mls/hr 08/23/19 14:00 08/26/19 06:17 Zosyn/Ns 4.5gm/100ml IV 200 mls/hr Q8HR NADJA Administration Protocol Clindamycin HCl 900 mg in 50 mls @ 100 mls/hr 08/25/19 17:00 08/26/19 05:43 Cleocin 900 Mg/50 Ml IV 08/28/19 16:59 100 mls/hr Q8HR NADJA Administration Protocol Heparin Sodium/Sodium Chloride 25,000 unit in 500 mls @ 27 mls/hr 08/25/19 17:00 08/26/19 05:02 Heparin/ 0.45% Nacl-25,000 Unit/500 Ml IV 1,550 units/hr TITR NADJA 31 mls/hr Titration Protocol 1,350 UNITS/HR Vancomycin HCl 1,500 mg/ 530 mls @ 333.333 mls/hr 08/26/19 07:00 08/26/19 07:07 Sodium Chloride IV 333.333 mls/hr Q12H NADJA Administration Insulin Human Lispro 0 unit 08/22/19 18:00 08/26/19 07:07 Humalog SUB-Q 3 unit Q6HR NADJA Administration Protocol Lorazepam 2 mg 08/22/19 17:08 08/22/19 20:38 Ativan IV 2 mg Q1HR PRN Administration CIWA-Ar 8-15 Mirtazapine 15 mg 08/22/19 22:00 08/25/19 21:21 Remeron PO 15 mg QHS NADJA Administration Morphine Sulfate 2 mg 08/22/19 17:02 08/26/19 11:37 Morphine IV 2 mg Q4H PRN Administration Pain, Moderate (4-6) Nicotine 21 mg 08/22/19 20:00 08/26/19 08:56 Habitrol TD 21 mg QDAY NADJA Administration Ondansetron HCl 4 mg 08/22/19 17:02 Zofran IV Q8H PRN Nausea And Vomiting Oxycodone/Acetaminophen 1 tab 08/22/19 17:02 08/23/19 18:42 Percocet 5/325 PO 1 tab Q6H PRN Administration Pain, Moderate (4-6) Sodium Chloride 10 ml 08/22/19 22:00 08/25/19 22:00 Sodium Chloride Flush Syringe 10 Ml IV 10 ml BID NADJA Administration Sodium Chloride 10 ml 08/22/19 17:02 Sodium Chloride Flush Syringe 10 Ml IV PRN PRN LINE FLUSH Sodium Hypochlorite 1 applic 08/25/19 22:00 08/26/19 11:00 Dakin's Half Strength TP 1 applicatio BID NADJA Administration Thiamine HCl 100 mg 08/23/19 10:00 08/26/19 08:55 Vitamin B-1 PO 100 mg QDAY NADJA Administration Zolpidem Tartrate 5 mg 08/25/19 18:42 08/25/19 23:44 Ambien PO 5 mg QHS PRN Administration Sleep
--- NOTE | 2019-08-26 13:20 | Progress Note ---
Assessment and Plan POD#2 s/p incision and drainage with debridement of left foot abscess and necrotic tissue. episodically febrile, hemodynamically stable. no gross clinical improvement of infection, continue dakins dressing changes and appreciate ID recommendations for antibiotics. awaiting final cultures. continue heparin drip for DVT. upon wound examination tomorrow will determine if wound needs further surgical debridement. Subjective Date of service: 08/26/19 Patient Reports: Positive: still having pain (last 24 hours pt was found to have DVT in lower left leg. He was started on a heparin drip. Pt says the majority of pain is in his calf, foot pain is about the same. ) Objective Vital Signs - 12hr 08/26/19 08/26/19 08/26/19 04:56 04:57 07:49 Temperature 98.3 F 99.0 F Pulse Rate 83 83 83 Respiratory 16 18 Rate Blood Pressure 136/85 138/79 O2 Sat by Pulse 91 92 94 Oximetry 08/26/19 08/26/19 08/26/19 08:55 09:23 11:46 Temperature 98.8 F Pulse Rate 83 91 H Respiratory 18 Rate Blood Pressure 138/79 154/85 O2 Sat by Pulse 94 94 Oximetry - General physical appearance well developed, well nourished, no distress - Musculoskeletal other (left foot examined. wound bed is clean, or drainage, no odor. erythema and edema persist and is majority on the top of the foot, extending up the lower third of the leg. tender to palpation. sensation and movement intact. 2x2cm dusky skin patch at medial maleolus showing no further signs of ischemia. still showing signs of viability) - Labs 08/25/19 17:00 08/25/19 04:29
[2019-08-26] MEDS: HEPARIN/ 0.45% NACL DRIP 25,000 UNIT/500 ML BAG IV SCH (14:50)
[2019-08-26] MEDS: SODIUM CHLORIDE 0.9% 1000 ML 1,000 ML IV SCH ×2 (14:51→22:28)
[2019-08-26] MEDS: MIRTAZAPINE 15 MG TAB PO SCH (21:31)
[2019-08-26] MEDS: oxyCODONE /ACETAMINOPHEN 5-325MG TAB PO PRN (21:32)
[2019-08-26] MEDS: guaiFENesin 100 MG/5 ML ORAL LIQD PO PRN (22:36)
[2019-08-27] MEDS: ZOLPIDEM 5 MG TAB PO PRN (00:12)
[2019-08-27] MEDS: VANCOMYCIN 1,500 MG in SODIUM CHLORIDE 0.9% 500 ML 500 ML IV SCH ×3 (00:48→19:25)
[2019-08-27] MEDS: SODIUM HYPOCHLORITE, DAKIN'S 1/2 STRENGTH (0.25%) 473 ML TOPICAL SOLN TP SCH ×3 (00:49→22:00)
[2019-08-27] MEDS: diphenhydrAMINE 50 MG CAP PO PRN ×4 (00:50→19:25)
[2019-08-27] MEDS: INSULIN LISPRO 100 UNIT/ML SUB-Q SCH ×3 (01:36→13:12)
[2019-08-27 02:56] LABS: Hematocrit 37.9 % (35.5-45.6)
[2019-08-27] MEDS: PIPERACIL/TAZOBACTA 4.5/NS 100 4.5 GM/100 ML VIAL IV SCH (05:30)
[2019-08-27] MEDS: HEPARIN/ 0.45% NACL DRIP 25,000 UNIT/500 ML BAG IV SCH ×2 (05:32→19:14)
[2019-08-27] MEDS: MORPHINE 2 MG/1 ML INJ IV PRN ×4 (05:35→22:27)
[2019-08-27] MEDS: FOLIC ACID 1 MG TAB PO SCH (10:19)
[2019-08-27] MEDS: NICOTINE 21 MG/24 HR PATCH TD SCH (10:19)
[2019-08-27] MEDS: FAMOTIDINE 20 MG TAB PO SCH ×2 (10:19→22:32)
[2019-08-27] MEDS: THIAMINE 100 MG TAB PO SCH (10:20)
[2019-08-27] MEDS: amLODIPine 10 MG TAB PO SCH (10:20)
[2019-08-27] MEDS ORDERED: HEPARIN 10,000 UNITS/10 ML VIAL IV ONE (10:30)
--- NOTE | 2019-08-27 10:45 | Progress Note ---
Assessment and Plan POD#3 s/p I&D of left foot abscess, with debridement of necrotic tissue. continues to have significant cellulits. less febrile episode in the last 24 hours, and stable being treated therapeutic heprin for left leg DVT. diabetic on insulin with moderate glucose control. continue abx and dakins dressing changes spoke with vascular and asked them to evaluate patient, to rule out compartment syndrome as cause of increase pain, however unlikely. Subjective Date of service: 08/27/19 Patient Reports: Positive: no new complaints, still having pain (no acute events over night) Narrative: pt says that his pain is a little worse than yesterday. mostly in his calf. no other acute events over night. culture resulted positive for Klebsiela. Objective Vital Signs - 12hr 08/26/19 08/27/19 08/27/19 23:57 01:00 04:35 Temperature 99.1 F 98.8 F Pulse Rate 90 92 H Respiratory 17 17 Rate Respiratory 18 Rate [Lower Posterior Back] Blood Pressure 143/86 164/90 O2 Sat by Pulse 92 92 Oximetry 08/27/19 08/27/19 08:04 10:20 Temperature 99.5 F Pulse Rate 85 85 Respiratory 18 Rate Respiratory Rate [Lower Posterior Back] Blood Pressure 151/85 151/85 O2 Sat by Pulse 92 Oximetry - General physical appearance well developed, well nourished, no distress, severe pain - Respiratory normal expansion, normal respiratory effort - Musculoskeletal other (left leg with persistent erythema and edema. calf is soft but more tender than expected to palpation. wound bed shows granulation tissue, no foul odor, or drainage. skin edges unchanged. sensory and motor function same as pre-op) - Labs 08/27/19 02:44 08/25/19 04:29
--- NOTE | 2019-08-27 11:25 | Progress Note ---
Assessment and Plan Patient with left lower leg edema. Comparison to admission photographs demonstrate some progression of the edema with more evidence of cellulitis. Patient without sequela of compartment syndrome. It is likely that his swelling is result of infection and DVT/SVT. The patient may have some baseline underlying venous insufficiency as well. Would recommend maximizing antibiotic therapy as well as leg elevation and attempt to decrease his edema. Subjective Date of service: 08/27/19 Principal diagnosis: left foot wound Interval history: Patient with a history of diabetes. Patient with a history of left foot wound status post debridement. Additionally, the patient has a small eschar that is forming on the right great toe. Patient underwent an arterial duplex of his lower leg on the left which demonstrates no significant vascular disease. On the right, the patient has palpable dorsalis pedis and posterior tibial pulses. A venous duplex was ordered and the patient was noted to have DVT in his posterior tibial vein as well as SVT within the distal aspect of the greater saphenous vein. The patient underwent debridement of his left foot wound. On examination, the patient has edema from mid calf distally. There is diffuse erythema overlying his lower leg consistent with cellulitis. Patient is able to dorsiflex and plantarflex his foot without significant pain. No significant compartment tenderness to palpation. Objective - Constitutional Vitals: Vital Signs - 12hr 08/26/19 08/27/19 08/27/19 23:57 01:00 04:35 Temperature 99.1 F 98.8 F Pulse Rate 90 92 H Respiratory 17 17 Rate Respiratory 18 Rate [Lower Posterior Back] Blood Pressure 143/86 164/90 O2 Sat by Pulse 92 92 Oximetry 08/27/19 08/27/19 08:04 10:20 Temperature 99.5 F Pulse Rate 85 85 Respiratory 18 Rate Respiratory Rate [Lower Posterior Back] Blood Pressure 151/85 151/85 O2 Sat by Pulse 92 Oximetry General appearance: Present: no acute distress - EENT Eyes: EOM intact ENT: hearing intact - Neck Neck: supple, normal ROM - Breasts Breasts: deferred Extremities: abnormal (per HPI) - Gastrointestinal General gastrointestinal: Present: deferred Rectal Exam: deferred - Genitourinary Male genitourinary: deferred - Psychiatric Psychiatric: appropriate mood/affect, cooperative - Labs CBC & Chem 7: 08/27/19 02:44 08/25/19 04:29 Labs: Abnormal lab results 08/26/19 08/26/19 08/26/19 Range/Units 11:56 17:47 17:55 Plt Count (140-440) K/mm3 Heparin Anti-Xa Level 0.10 L (0.3-0.7) U.I./ml POC Glucose 312 H 270 H (70-105) 08/27/19 08/27/19 08/27/19 Range/Units 00:25 02:44 02:44 Plt Count 126 L (140-440) K/mm3 Heparin Anti-Xa Level 0.10 L (0.3-0.7) U.I./ml POC Glucose 165 H (70-105) 08/27/19 08/27/19 Range/Units 05:51 08:50 Plt Count (140-440) K/mm3 Heparin Anti-Xa Level < 0.10 L (0.3-0.7) U.I./ml POC Glucose 131 H (70-105) Medications & Allergies - Medications Allergies/Adverse Reactions: Allergies vancomycin Adverse Reaction (Verified 08/22/19 16:52) Rash Home Medications: Home Medications Medication Instructions Recorded Confirmed Last Taken Type Famotidine [Pepcid] 20 mg PO BID #28 tablet 05/18/18 08/23/19 08/21/19 21:00 Rx Folic Acid [Folvite] 1 mg PO QDAY #30 tablet 05/18/18 08/24/19 08/17/19 Rx Mirtazapine [Remeron 15mg TAB] 15 mg PO QHS #30 tablet 05/18/18 08/23/19 08/22/19 21:00 Rx Nicotine [Habitrol] 21 mg TD QDAY #7 patch 05/18/18 08/23/19 08/22/19 21:00 Rx Thiamine [Vitamin B-1] 100 mg PO QDAY #30 tablet 05/18/18 08/24/19 08/17/19 Rx amLODIPine 10 mg PO QDAY #30 tablet 05/18/18 08/23/19 08/21/19 21:00 Rx metFORMIN [Glucophage] 500 mg PO BID #60 tablet 05/18/18 08/23/19 08/21/19 21:00 Rx Active Medications: Generic Name Dose Route Start Last Admin Trade Name Marcellusyamilex PRN Reason Stop Dose Admin Acetaminophen 650 mg 08/22/19 17:02 08/26/19 01:30 Tylenol PO 650 mg Q4H PRN Administration Pain MILD(1-3)/Fever >100.5/MILES Albuterol 2.5 mg 08/22/19 17:02 Proventil IH Q4HRT PRN Shortness Of Breath Amlodipine Besylate 10 mg 08/23/19 10:00 08/27/19 10:20 Amlodipine PO 10 mg QDAY NADJA Administration Dextrose 50 ml 08/22/19 17:07 D50w (25gm) Syringe IV Q30MIN PRN Hypoglycemia Diphenhydramine HCl 50 mg 08/25/19 18:31 08/27/19 07:01 Benadryl PO 50 mg Q6H PRN Administration Rash Famotidine 20 mg 08/22/19 22:00 08/27/19 10:19 Pepcid PO 20 mg BID NADJA Administration Folic Acid 1 mg 08/23/19 10:00 08/27/19 10:19 Folvite PO 1 mg QDAY NADJA Administration Guaifenesin 200 mg 08/25/19 18:43 08/26/19 22:36 Robitussin PO 200 mg Q4H PRN Administration Cough Sodium Chloride 1,000 mls @ 150 mls/hr 08/22/19 18:00 08/26/19 22:28 Nacl 0.9% 1000 Ml IV 100 mls/hr DIRECT NADJA Administration Piperacillin Sod/Tazobactam Sod 4.5 gm in 100 mls @ 200 mls/hr 08/23/19 14:00 08/27/19 05:30 Zosyn/Ns 4.5gm/100ml IV 200 mls/hr Q8HR NADJA Administration Protocol Clindamycin HCl 900 mg in 50 mls @ 100 mls/hr 08/25/19 17:00 08/27/19 05:31 Cleocin 900 Mg/50 Ml IV 08/28/19 16:59 100 mls/hr Q8HR NADJA Administration Protocol Heparin Sodium/Sodium Chloride 25,000 unit in 500 mls @ 27 mls/hr 08/25/19 17:00 08/27/19 10:34 Heparin/ 0.45% Nacl-25,000 Unit/500 Ml IV 2,300 units/hr TITR NADJA 46 mls/hr Titration Protocol 1,350 UNITS/HR Vancomycin HCl 1,500 mg/ 530 mls @ 333.333 mls/hr 08/26/19 07:00 08/27/19 07: 01 Sodium Chloride IV 333.333 mls/hr Q12H NADJA Administration Insulin Human Lispro 0 unit 08/22/19 18:00 08/27/19 05:43 Humalog SUB-Q Not Given Q6HR NADJA Protocol Lorazepam 2 mg 08/22/19 17:08 08/22/19 20:38 Ativan IV 2 mg Q1HR PRN Administration CIWA-Ar 8-15 Mirtazapine 15 mg 08/22/19 22:00 08/26/19 21:31 Remeron PO 15 mg QHS NADJA Administration Morphine Sulfate 2 mg 08/22/19 17:02 08/27/19 11:05 Morphine IV 2 mg Q4H PRN Administration Pain, Moderate (4-6) Nicotine 21 mg 08/22/19 20:00 08/27/19 10:19 Habitrol TD 21 mg QDAY NADJA Administration Ondansetron HCl 4 mg 08/22/19 17:02 Zofran IV Q8H PRN Nausea And Vomiting Oxycodone/Acetaminophen 1 tab 08/22/19 17:02 08/26/19 21:32 Percocet 5/325 PO 1 tab Q6H PRN Administration Pain, Moderate (4-6) Sodium Chloride 10 ml 08/22/19 22:00 08/27/19 00:48 Sodium Chloride Flush Syringe 10 Ml IV 10 ml BID NADJA Administration Sodium Chloride 10 ml 08/22/19 17:02 Sodium Chloride Flush Syringe 10 Ml IV PRN PRN LINE FLUSH Sodium Hypochlorite 1 applic 08/25/19 22:00 08/27/19 11:05 Dakin's Half Strength TP 1 applicatio BID NADJA Administration Thiamine HCl 100 mg 08/23/19 10:00 08/27/19 10:20 Vitamin B-1 PO 100 mg QDAY NADJA Administration Zolpidem Tartrate 5 mg 08/25/19 18:42 08/27/19 00:12 Ambien PO 5 mg QHS PRN Administration Sleep
--- NOTE | 2019-08-27 12:32 | Progress Note ---
Assessment and Plan Cultures: 08/24 blood culture - NGTD 08/24 surgical biopsy culture - Klebsiella pneumoniae 08/24 surgical culture - Klebsiella pneumoniae A/P: 54 yo m PMHx DM2, EtOH abuse, nicotine abuse admitted with gangrene of the L foot. 1. Acute sepsis secondary to L foot gangrene and abscess - given necrotic change would add 3 days of clindamycin for toxin production prevention. Cultures have gram stain with GPC in pairs, not consistent with Staph, so for now would con tinue with Zosyn and added clinda. If required, will add daptomycin inpatient. No evidence of osteomyelitis on MRI, however given abscess abutted the bone, there is always concern for infection. At present would recommend treatment as abscess/necrosis/cellulitis for a 2 week course. At risk of limb loss. 2. DM2 - recommend tight glycemic control for improved wound healing. 3. Nicotine abuse - recommended cessation for improved wound healing 4. Vancomycin allergy - not true allergy per patient. Says he gets red man syndrome, resolved with Benadryl. Red man syndrome can also be avoided by infusing vancomycin at half rate Recs: - stop pip-rose - start ceftriaxone 2g q24h based on sensitivities of Klebsiella - start clinda 900mg q8h x 3 days - follow up cultures - start vancomycin goal trough 15-20 dosed by pharmacy, recommend slow infusion to avoid red man syndrome. Continue through finalization of biopsy culture - Benadryl PRN for redness - de-escalate antibiotics as appropriate based on cultures Thank you for the consult, we will continue to follow. Marisela Mendoza MD [facility] ([facility] M: [phone] O: [phone] F: [phone] Subjective Date of service: 08/27/19 Principal diagnosis: left foot wound Interval history: Ongoing, slightly worse pain in the foot, but no acute complaints. Febrile yesterday evening but afebrile overnight. Objective - Exam Narrative Exam: Constitutional: Alert, cooperative. No acute distress Head, Ears, Nose: Normocephalic, atraumatic. External ears, nose normal Eyes: Conjunctivae/corneas clear. No icterus. No ptosis. Neck: Supple, no meningeal signs Oral: dentition fair, no thrush Cardiovascular: S1, S2 normal. Respiratory: Good air entry, clear to auscultation bilaterally GI: Soft, non-tender; bowel sounds normal. No peritoneal signs. Musculoskeletal: L foot bandaged Skin: No rash or abscess Hem/Lymphatic: No palpable cervical or supraclavicular nodes. No lymphangitis Psych: Mood ok. Affect normal Neurological: Awake, alert, oriented. No gross abnormality - Constitutional Vitals: Vital Signs Temp Pulse Resp BP Pulse Ox 99.5 F 85 18 151/85 92 08/27/19 08:04 08/27/19 10:20 08/27/19 08:04 08/27/19 10:20 08/27/19 08:04 Temperature -Last 24 Hours Temperature 99.5 F Temperature 98.8 F Temperature 99.1 F Temperature 100.8 F Temperature 100.0 F - Labs CBC & Chem 7: 08/27/19 02:44 08/25/19 04:29 Labs: Abnormal lab results 08/26/19 08/26/19 08/27/19 Range/Units 17:47 17:55 00:25 Plt Count (140-440) K/mm3 Heparin Anti-Xa Level 0.10 L (0.3-0.7) U.I./ml POC Glucose 270 H 165 H (70-105) 08/27/19 08/27/19 08/27/19 Range/Units 02:44 02:44 05:51 Plt Count 126 L (140-440) K/mm3 Heparin Anti-Xa Level 0.10 L (0.3-0.7) U.I./ml POC Glucose 131 H (70-105) 08/27/19 Range/Units 08:50 Plt Count (140-440) K/mm3 Heparin Anti-Xa Level < 0.10 L (0.3-0.7) U.I./ml POC Glucose (70-105)
[2019-08-27] MEDS: SODIUM CHLORIDE 0.9% 1000 ML 1,000 ML IV SCH (14:41)
--- NOTE | 2019-08-27 15:17 | Progress Note ---
Assessment and Plan Assessment and plan: --Acute LE DVT: Posterior tibial vein DVT Positive for superficial venous thrombosis in the greater saphenous vein Anticoagulation with heparin drip standard protocol Discussed with vascular and surgery --Left foot abscess; surgery following Status post incision drainage, debridement of necrotic tissue continue wound care, patient reports allergic to vancomycin However ID clarified with the patient, continue Vancocin Zosyn And clindamycin --Sepsis. Continue IV antibiotics. Follow-up blood cultures, wound cultures gram negative rods ,follow sensitivities Etiology secondary to LLE gangrene. --Left lower extremity abscess/gangrene. Vascular following. MRI reveals extensive abscess s/p I&D, No evidence of osteomyelitis. --H/O Lt.Great toe amputation --Diabetes mellitus type 2. Continue Accu-Cheks and sliding scale insulin. Tight glycemic control to promote wound healing. --EtOH abuse. CIWA protocol. --Severe malnutrition/hypoalbuminemia; nutrition supplements Nutrition consult --History CVA. Supportive care --DVT prophylaxis; heparin Cement Patcher recommendations noted and appreciated Monitor clinically and adjust management as needed History Interval history: Sincerely and examined medical records reviewed Patient feels better , no new complaints Vital signs stable Hospitalist Physical - Constitutional Vitals: Temp Pulse Resp BP Pulse Ox 99.2 F 84 18 149/81 96 08/27/19 11:15 08/27/19 11:15 08/27/19 11:15 08/27/19 11:15 08/27/19 11:15 General appearance: Present: no acute distress, well-nourished - EENT Eyes: Present: PERRL, EOM intact - Neck Neck: Present: supple, normal ROM - Respiratory Respiratory effort: normal Respiratory: bilateral: diminished, negative: rales, rhonchi, wheezing - Cardiovascular Rhythm: regular Heart Sounds: Present: S1 & S2 - Extremities Extremities: abnormal (wound dressing intact) - Abdominal General gastrointestinal: soft, non-tender, non-distended - Integumentary Integumentary: Present: clear, warm - Psychiatric Psychiatric: appropriate mood/affect, cooperative - Neurologic Neurologic: moves all extremities Results - Labs CBC & Chem 7: 08/27/19 02:44 08/25/19 04:29 Labs: Laboratory Last Values WBC 6.8 K/mm3 (4.5-11.0) 08/25/19 04:29 RBC 4.32 M/mm3 (3.65-5.03) 08/25/19 04:29 Hgb 13.0 gm/dl (11.8-15.2) 08/27/19 02:44 Hct 37.9 % (35.5-45.6) 08/27/19 02:44 MCV 90 fl (84-94) 08/25/19 04:29 MCH 31 pg (28-32) 08/25/19 04:29 MCHC 34 % (32-34) 08/25/19 04:29 RDW 15.0 % (13.2-15.2) 08/25/19 04:29 Plt Count 126 K/mm3 (140-440) L 08/27/19 02:44 Lymph % (Auto) 16.2 % (13.4-35.0) 08/25/19 04:29 [place] % (Auto) 15.3 % (0.0-7.3) H 08/25/19 04:29 Eos % (Auto) 0.3 % (0.0-4.3) 08/25/19 04:29 Baso % (Auto) 0.4 % (0.0-1.8) 08/25/19 04:29 Lymph # 1.1 K/mm3 (1.2-5.4) L 08/25/19 04:29 [place] # 1.0 K/mm3 (0.0-0.8) H 08/25/19 04:29 Eos # 0.0 K/mm3 (0.0-0.4) 08/25/19 04:29 Baso # 0.0 K/mm3 (0.0-0.1) 08/25/19 04:29 Add Manual Diff Complete 08/23/19 11:54 Total Counted 100 08/23/19 11:54 Seg Neutrophils % 67.8 % (40.0-70.0) 08/25/19 04:29 Seg Neuts % (Manual) 63.0 % (40.0-70.0) 08/23/19 11:54 Band Neutrophils % 20.0 % 08/23/19 11:54 Lymphocytes % (Manual) 11.0 % (13.4-35.0) L 08/23/19 11:54 Reactive Lymphs % (Man) 0 % 08/23/19 11:54 Monocytes % (Manual) 5.0 % (0.0-7.3) 08/23/19 11:54 Eosinophils % (Manual) 0 % (0.0-4.3) 08/23/19 11:54 Basophils % (Manual) 0 % (0.0-1.8) 08/23/19 11:54 Metamyelocytes % 1.0 % 08/23/19 11:54 Myelocytes % 0 % 08/23/19 11:54 Promyelocytes % 0 % 08/23/19 11:54 Blast Cells % 0 % 08/23/19 11:54 Nucleated RBC % Not Reportable 08/23/19 11:54 Seg Neutrophils # 4.6 K/mm3 (1.8-7.7) 08/25/19 04:29 Seg Neutrophils # Man 5.5 K/mm3 (1.8-7.7) 08/23/19 11:54 Band Neutrophils # 1.8 K/mm3 08/23/19 11:54 Lymphocytes # (Manual) 1.0 K/mm3 (1.2-5.4) L 08/23/19 11:54 Abs React Lymphs (Man) 0.0 K/mm3 08/23/19 11:54 Monocytes # (Manual) 0.4 K/mm3 (0.0-0.8) 08/23/19 11:54 Eosinophils # (Manual) 0.0 K/mm3 (0.0-0.4) 08/23/19 11:54 Basophils # (Manual) 0.0 K/mm3 (0.0-0.1) 08/23/19 11:54 Metamyelocytes # 0.1 K/mm3 08/23/19 11:54 Myelocytes # 0.0 K/mm3 08/23/19 11:54 Promyelocytes # 0.0 K/mm3 08/23/19 11:54 Blast Cells # 0.0 K/mm3 08/23/19 11:54 WBC Morphology Not Reportable 08/23/19 11:54 Hypersegmented Neuts Not Reportable 08/23/19 11:54 Hyposegmented Neuts Not Reportable 08/23/19 11:54 Hypogranular Neuts Not Reportable 08/23/19 11:54 Smudge Cells Not Reportable 08/23/19 11:54 Toxic Granulation Not Reportable 08/23/19 11:54 Toxic Vacuolation Not Reportable 08/23/19 11:54 Dohle Bodies Not Reportable 08/23/19 11:54 Pelger-Huet Anomaly Not Reportable 08/23/19 11:54 Jazmyn Rods Not Reportable 08/23/19 11:54 Platelet Estimate Consistent w auto 08/23/19 11:54 Clumped Platelets Not Reportable 08/23/19 11:54 Plt Clumps, EDTA Not Reportable 08/23/19 11:54 Large Platelets Not Reportable 08/23/19 11:54 Giant Platelets Not Reportable 08/23/19 11:54 Platelet Satelliting Not Reportable 08/23/19 11:54 Plt Morphology Comment Not Reportable 08/23/19 11:54 RBC Morphology Normal 08/23/19 11:54 Dimorphic RBCs Not Reportable 08/23/19 11:54 Polychromasia Not Reportable 08/23/19 11:54 Hypochromasia Not Reportable 08/23/19 11:54 Poikilocytosis Not Reportable 08/23/19 11:54 Anisocytosis Not Reportable 08/23/19 11:54 Microcytosis Not Reportable 08/23/19 11:54 Macrocytosis Not Reportable 08/23/19 11:54 Spherocytes Not Reportable 08/23/19 11:54 Pappenheimer Bodies Not Reportable 08/23/19 11:54 Sickle Cells Not Reportable 08/23/19 11:54 Target Cells Not Reportable 08/23/19 11:54 Tear Drop Cells Not Reportable 08/23/19 11:54 Ovalocytes Not Reportable 08/23/19 11:54 Helmet Cells Not Reportable 08/23/19 11:54 [place] Pocket Bodies Not Reportable 08/23/19 11:54 [place] Rings Not Reportable 08/23/19 11:54 [place] Cells Not Reportable 08/23/19 11:54 Bite Cells Not Reportable 08/23/19 11:54 Crenated Cell Not Reportable 08/23/19 11:54 Elliptocytes Not Reportable 08/23/19 11:54 Acanthocytes (Spur) Not Reportable 08/23/19 11:54 Rouleaux Not Reportable 08/23/19 11:54 Hemoglobin C Crystals Not Reportable 08/23/19 11:54 Schistocytes Not Reportable 08/23/19 11:54 Malaria parasites Not Reportable 08/23/19 11:54 [place] Bodies Not Reportable 08/23/19 11:54 Hem Pathologist Commnt No 08/23/19 11:54 PT 13.4 Sec. (12.2-14.9) 08/25/19 17:00 INR 1.03 (0.87-1.13) 08/25/19 17:00 APTT 28.2 Sec. (24.2-36.6) 08/25/19 17:00 Heparin Anti-Xa Level < 0.10 U.I./ml (0.3-0.7) L 08/27/19 08:50 VBG pH 7.362 (7.320-7.420) 08/22/19 13:23 Sodium 133 mmol/L (137-145) L 08/25/19 04:29 Potassium 3.4 mmol/L (3.6-5.0) L D 08/25/19 04:29 Chloride 99.9 mmol/L (98-107) 08/25/19 04:29 Carbon Dioxide 22 mmol/L (22-30) 08/25/19 04:29 Anion Gap 15 mmol/L 08/25/19 04:29 BUN 15 mg/dL (9-20) 08/25/19 04:29 Creatinine 0.5 mg/dL (0.8-1.5) L D 08/25/19 04:29 Estimated GFR > 60 ml/min 08/25/19 04:29 BUN/Creatinine Ratio 30 % 08/25/19 04:29 Glucose 202 mg/dL (75-100) H 08/25/19 04:29 POC Glucose 131 (70-105) H 08/27/19 05:51 Lactic Acid 1.90 mmol/L (0.7-2.0) 08/22/19 15:40 Calcium 8.2 mg/dL (8.4-10.2) L 08/25/19 04:29 Total Bilirubin 1.20 mg/dL (0.1-1.2) 08/23/19 11:54 AST 50 units/L (5-40) H 08/23/19 11:54 ALT 44 units/L (7-56) 08/23/19 11:54 Alkaline Phosphatase 128 units/L (35-129) 08/23/19 11:54 Total Protein 6.4 g/dL (6.3-8.2) 08/23/19 11:54 Albumin 2.6 g/dL (3.9-5) L 08/23/19 11:54 Albumin/Globulin Ratio 0.7 % 08/23/19 11:54 Urine Color Yellow (Yellow) 08/22/19 14:11 Urine Turbidity Clear (Clear) 08/22/19 14:11 Urine pH 5.0 (5.0-7.0) 08/22/19 14:11 Ur Specific [place] 1.028 (1.003-1.030) 08/22/19 14:11 Urine Protein <15 mg/dl mg/dL (Negative) 08/22/19 14:11 Urine Glucose (UA) >=500 mg/dL (Negative) 08/22/19 14:11 Urine Ketones 20 mg/dL (Negative) 08/22/19 14:11 Urine Blood Sm (Negative) 08/22/19 14:11 Urine Nitrite Neg (Negative) 08/22/19 14:11 Urine Bilirubin Neg (Negative) 08/22/19 14:11 Urine Urobilinogen 4.0 mg/dL (<2.0) 08/22/19 14:11 Ur Leukocyte Esterase Neg (Negative) 08/22/19 14:11 Urine WBC (Auto) 2.0 /HPF (0.0-6.0) 08/22/19 14:11 Urine RBC (Auto) 4.0 /HPF (0.0-6.0) 08/22/19 14:11 U Epithel Cells (Auto) 1.0 /HPF (0-13.0) 08/22/19 14:11 Active Medications - Current Medications Current Medications: Generic Name Dose Route Start Last Admin Trade Name Freq PRN Reason Stop Dose Admin Acetaminophen 650 mg 08/22/19 17:02 08/26/19 01:30 Tylenol PO 650 mg Q4H PRN Administration Pain MILD(1-3)/Fever >100.5/MILES Albuterol 2.5 mg 08/22/19 17:02 Proventil IH Q4HRT PRN Shortness Of Breath Amlodipine Besylate 10 mg 08/23/19 10:00 08/27/19 10:20 Amlodipine PO 10 mg QDAY NADJA Administration Dextrose 50 ml 08/22/19 17:07 D50w (25gm) Syringe IV Q30MIN PRN Hypoglycemia Diphenhydramine HCl 50 mg 08/25/19 18:31 08/27/19 13:12 Benadryl PO 50 mg Q6H PRN Administration Rash Famotidine 20 mg 08/22/19 22:00 08/27/19 10:19 Pepcid PO 20 mg BID NADJA Administration Folic Acid 1 mg 08/23/19 10:00 08/27/19 10:19 Folvite PO 1 mg QDAY NADJA Administration Guaifenesin 200 mg 08/25/19 18:43 08/26/19 22:36 Robitussin PO 200 mg Q4H PRN Administration Cough Sodium Chloride 1,000 mls @ 150 mls/hr 08/22/19 18:00 08/27/19 14:41 Nacl 0.9% 1000 Ml IV 100 mls/hr DIRECT NADJA Administration Clindamycin HCl 900 mg in 50 mls @ 100 mls/hr 08/25/19 17:00 08/27/19 14:43 Cleocin 900 Mg/50 Ml IV 08/28/19 16:59 100 mls/hr Q8HR NADJA Administration Protocol Heparin Sodium/Sodium Chloride 25,000 unit in 500 mls @ 27 mls/hr 08/25/19 17:00 08/27/19 10:34 Heparin/ 0.45% Nacl-25,000 Unit/500 Ml IV 2,300 units/hr TITR NADJA 46 mls/hr Titration Protocol 1,350 UNITS/HR Vancomycin HCl 1,500 mg/ 530 mls @ 333.333 mls/hr 08/26/19 07:00 08/27/19 07:01 Sodium Chloride IV 333.333 mls/hr Q12H NADJA Administration Ceftriaxone Sodium 2 gm in 100 mls @ 200 mls/hr 08/27/19 14:00 Rocephin/Ns 2 Gm/100 Ml IV Q24H NADJA Protocol Insulin Human Lispro 0 unit 08/22/19 18:00 08/27/19 13:12 Humalog SUB-Q 6 unit Q6HR NADJA Administration Protocol Lorazepam 2 mg 08/22/19 17:08 08/22/19 20:38 Ativan IV 2 mg Q1HR PRN Administration CIWA-Ar 8-15 Mirtazapine 15 mg 08/22/19 22:00 08/26/19 21:31 Remeron PO 15 mg QHS NADJA Administration Morphine Sulfate 2 mg 08/22/19 17:02 08/27/19 11:05 Morphine IV 2 mg Q4H PRN Administration Pain, Moderate (4-6) Nicotine 21 mg 08/22/19 20:00 08/27/19 10:19 Habitrol TD 21 mg QDAY NADJA Administration Ondansetron HCl 4 mg 08/22/19 17:02 Zofran IV Q8H PRN Nausea And Vomiting Oxycodone/Acetaminophen 1 tab 08/22/19 17:02 08/26/19 21:32 Percocet 5/325 PO 1 tab Q6H PRN Administration Pain, Moderate (4-6) Sodium Chloride 10 ml 08/22/19 22:00 08/27/19 11:22 Sodium Chloride Flush Syringe 10 Ml IV Not Given BID NADJA Sodium Chloride 10 ml 08/22/19 17:02 Sodium Chloride Flush Syringe 10 Ml IV PRN PRN LINE FLUSH Sodium Hypochlorite 1 applic 08/25/19 22:00 08/27/19 11:05 Dakin's Half Strength TP 1 applicatio BID NADJA Administration Thiamine HCl 100 mg 08/23/19 10:00 08/27/19 10:20 Vitamin B-1 PO 100 mg QDAY NADJA Administration Zolpidem Tartrate 5 mg 08/25/19 18:42 08/27/19 00:12 Ambien PO 5 mg QHS PRN Administration Sleep Nutrition/Malnutrition Assess - Dietary Evaluation Nutrition/Malnutrition Findings: Nutrition Notes Start: 08/27/19 11:12 Freq: Status: Active Protocol: Document 08/27/19 11:12 CC (Rec: 08/27/19 11:42 CC [id number]) Co-Sign 08/27/19 11:12 LP Nutrition Notes Need for Assessment generated from: LOS Initial or Follow up Assessment Current Diagnosis Diabetes,Hypertension Other Pertinent Diagnosis hx ETOH/nicotine abuse, SIRS, DM L foot infection, CVA Current Diet npo Labs/Tests reviewed Pertinent Medications reviewed Height 6 ft 2 in Weight 94.4 kg Usual Body Weight 97.7 kg [place] Body Weight (kg) 86.36 BMI 26.7 Intake Prior to Admission Good Weight change and time frame 11%/ 4months Weight Status Overweight Subjective/Other Information LOS. 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 Pt reported he has lost 23lbs starting in mid summer. Pt reported he does not weigh himself often and has his UBW is 215-220lbs. Per pt note pt has a 2+ non-pitting edema. Burn Absent Trauma Absent GI Symptoms None Food Allergy No Current % PO Negligible Minimum of two criteria Yes Interpretation of Weight Loss (severe) >7.5% in 3 months Fluid Accumulation Moderate to Severe (severe) #2 Nutrition Diagnosis Increased nutrient needs ( specify in comment below) Comments: protein Etiology wound healing As Evidenced by Signs and Symptoms diabetic ulcer on LE #1 Nutrition Diagnosis Malnutrition Etiology ETOH dependence, uncontrolled DM As Evidenced by Signs and Symptoms 11% wt loss in 3 months, moderate fluid accumulation Is patient on ventilator? No Is Patient Ambulatory and/or Out of Bed Yes REE-([facility]-ambulatory/OOB) [ 2416.375 [id number]] Calculation Used for Recommendations [facility] Additional Notes PRO: 118-141g/day (1.25-1.5g/ kg) Fluid: 1ml/kcal Nutrition Intervention Change Diet Order: consistent CHO when medically feasible Goal #1 Meet at least 80% of protein and energy needs Goal #2 wound healing Goal #3 diet advancement Follow-Up By: 08/30/19 Additional Comments f/u PO intakes, diet advancement
[2019-08-27] MEDS: cefTRIAXone/NS 2 GM/100 ML 2 GM/100 ML BAG IV SCH (15:31)
[2019-08-27] MEDS ORDERED: HEPARIN 10,000 UNITS/10 ML VIAL IV STA (19:00)
[2019-08-27] MEDS: MIRTAZAPINE 15 MG TAB PO SCH (22:31)
[2019-08-28] MEDS: ZOLPIDEM 5 MG TAB PO PRN (00:36)
[2019-08-28] MEDS: HEPARIN/ 0.45% NACL DRIP 25,000 UNIT/500 ML BAG IV SCH ×2 (03:17→14:02)
[2019-08-28] MEDS: MORPHINE 2 MG/1 ML INJ IV PRN ×3 (03:51→18:00)
[2019-08-28] MEDS: INSULIN LISPRO 100 UNIT/ML SUB-Q SCH ×5 (03:54→18:00)
[2019-08-28] MEDS: FAMOTIDINE 20 MG TAB PO SCH ×2 (09:05→21:07)
[2019-08-28] MEDS: NICOTINE 21 MG/24 HR PATCH TD SCH (09:05)
[2019-08-28] MEDS: FOLIC ACID 1 MG TAB PO SCH (09:05)
[2019-08-28] MEDS: THIAMINE 100 MG TAB PO SCH (09:05)
[2019-08-28] MEDS: amLODIPine 10 MG TAB PO SCH (09:05)
[2019-08-28] MEDS: oxyCODONE /ACETAMINOPHEN 5-325MG TAB PO PRN ×3 (09:16→21:06)
[2019-08-28] MEDS: diphenhydrAMINE 50 MG CAP PO PRN ×2 (10:50→18:00)
[2019-08-28] MEDS: VANCOMYCIN 1,250 MG in SODIUM CHLORIDE 0.9% 250ML 250 ML IV SCH ×2 (10:51→18:00)
--- NOTE | 2019-08-28 11:21 | Progress Note ---
Assessment and Plan POD#4 s/p I&D of left foot abscess, with excision of necrotic skin, persistent cellulitis. DVT in left leg on heparin drip. afebrile and stable. continue abx per ID. continue Dakins dressing changes BID. will examine wound on Friday with wound care, hopefully once showing clinical improvement, and duration of abx planned, can start planning discharge to home with out patient wound care and possible hyperbaric chamber therapy. needs to be discharged with plan of how to best stay compliant with diabetic medication. encouraged smoking cessation, to aid with wound healing. Subjective Date of service: 08/28/19 Patient Reports: Positive: no new complaints Narrative: no acute events overnight. no fever in over 24 hours. pt says his pain is a little better compared to yesterday. he was on gabapentin in the past and asked if he could be back on it. Klebsiella cultured our of wound as final result, ID made and monitoring abx regimen. Objective Vital Signs - 12hr 08/28/19 08/28/19 08/28/19 00:52 03:51 04:53 Temperature 99.8 F H 99.0 F Pulse Rate 91 H 85 Respiratory 20 18 20 Rate Respiratory Rate [ Generalized] Blood Pressure 153/90 147/83 Blood Pressure [Right] O2 Sat by Pulse 94 91 Oximetry 08/28/19 08/28/19 08/28/19 08:05 08:45 10:00 Temperature 99.3 F 99.3 F Pulse Rate 85 88 Respiratory 20 20 Rate Respiratory 16 Rate [ Generalized] Blood Pressure 146/89 Blood Pressure 146/89 [Right] O2 Sat by Pulse 95 93 Oximetry - General physical appearance well developed, well nourished, no distress - Respiratory normal expansion, normal respiratory effort - Musculoskeletal other (slight decrease in erythema at the upper limits of skin color demarcation. slightly less tender to palpation compared to yesterday. dressing c/d/i. calf soft, tender to palpation. sensation and motor intact to baseline before procedure.) - Labs 08/27/19 02:44 08/25/19 04:29
[2019-08-28] MEDS: guaiFENesin 100 MG/5 ML ORAL LIQD PO PRN (12:32)
[2019-08-28] MEDS: cefTRIAXone/NS 2 GM/100 ML 2 GM/100 ML BAG IV SCH (13:54)
[2019-08-28] MEDS: GABAPENTIN 300 MG CAP PO SCH ×2 (13:54→21:07)
[2019-08-28] MEDS: VANCOMYCIN 1,500 MG in SODIUM CHLORIDE 0.9% 500 ML 500 ML IV SCH (14:39)
[2019-08-28] MEDS: SODIUM HYPOCHLORITE, DAKIN'S 1/2 STRENGTH (0.25%) 473 ML TOPICAL SOLN TP SCH ×2 (15:16→21:07)
--- NOTE | 2019-08-28 16:01 | Progress Note ---
Assessment and Plan Cultures: 08/24 blood culture - NGTD 08/24 surgical biopsy culture - Klebsiella pneumoniae 08/24 surgical culture - Klebsiella pneumoniae A/P: 54 yo m PMHx DM2, EtOH abuse, nicotine abuse admitted with gangrene of the L foot. 1. Acute sepsis secondary to L foot gangrene and abscess - given necrotic change would add 3 days of clindamycin for toxin production prevention. Cultures have gram stain with GPC in pairs, not consistent with Staph, so for now would con tinue with Zosyn and added clinda. If required, will add daptomycin inpatient. No evidence of osteomyelitis on MRI, however given abscess abutted the bone, there is always concern for infection. At present would recommend treatment as abscess/necrosis/cellulitis for a 2 week course. At risk of limb loss. 2. DM2 - recommend tight glycemic control for improved wound healing. 3. Nicotine abuse - recommended cessation for improved wound healing 4. Vancomycin allergy - not true allergy per patient. Says he gets red man syndrome, resolved with Benadryl. Red man syndrome can also be avoided by infusing vancomycin at half rate Recs: - Continue ceftriaxone 2g q24h based on sensitivities of Klebsiella - culture final. ok to stop vancomycin. - plan 10 days of antibiotics based on surrounding cellulitis. If doing well consider home therapy with PO levofloxacin. Thank you for the consult, we will continue to follow. Marisela Mendoza MD [facility] ([facility]) M: [phone] O: [phone] F: [phone] Subjective Date of service: 08/28/19 Principal diagnosis: left foot wound Interval history: Ongoing, slightly worse pain in the foot, but no acute complaints. Febrile yesterday evening but afebrile overnight. Objective - Exam Narrative Exam: Constitutional: Alert, cooperative. No acute distress Head, Ears, Nose: Normocephalic, atraumatic. External ears, nose normal Eyes: Conjunctivae/corneas clear. No icterus. No ptosis. Neck: Supple, no meningeal signs Oral: dentition fair, no thrush Cardiovascular: S1, S2 normal. Respiratory: Good air entry, clear to auscultation bilaterally GI: Soft, non-tender; bowel sounds normal. No peritoneal signs. Musculoskeletal: L foot bandaged Skin: No rash or abscess Hem/Lymphatic: No palpable cervical or supraclavicular nodes. No lymphangitis Psych: Mood ok. Affect normal Neurological: Awake, alert, oriented. No gross abnormality - Constitutional Vitals: Vital Signs Temp Pulse Resp BP Pulse Ox 99.8 F H 83 20 134/81 93 08/28/19 12:08 08/28/19 12:08 08/28/19 12:08 08/28/19 12:08 08/28/19 12:08 Temperature -Last 24 Hours Temperature 99.8 F Temperature 99.3 F Temperature 99.3 F Temperature 99.0 F Temperature 99.8 F Temperature 99.8 F - Labs CBC & Chem 7: 08/27/19 02:44 08/25/19 04:29 Labs: Abnormal lab results 08/27/19 08/27/19 08/28/19 Range/Units 17:48 18:05 00:59 Heparin Anti-Xa Level < 0.10 L (0.3-0.7) U.I./ml POC Glucose 145 H 204 H (70-105) 08/28/19 08/28/19 08/28/19 Range/Units 01:00 05:27 08:23 Heparin Anti-Xa Level 0.18 L (0.3-0.7) U.I./ml POC Glucose 176 H 203 H (70-105) 08/28/19 Range/Units 12:16 Heparin Anti-Xa Level (0.3-0.7) U.I./ml POC Glucose 198 H (70-105)
[2019-08-28] MEDS: MIRTAZAPINE 15 MG TAB PO SCH (21:07)
[2019-08-29] MEDS: ZOLPIDEM 5 MG TAB PO PRN ×2 (01:04→21:27)
[2019-08-29] MEDS: MORPHINE 2 MG/1 ML INJ IV PRN ×3 (01:04→15:46)
[2019-08-29] MEDS: HEPARIN/ 0.45% NACL DRIP 25,000 UNIT/500 ML BAG IV SCH ×3 (01:06→20:20)
[2019-08-29] MEDS: INSULIN LISPRO 100 UNIT/ML SUB-Q SCH ×4 (01:14→18:36)
[2019-08-29] MEDS: VANCOMYCIN 1,250 MG in SODIUM CHLORIDE 0.9% 250ML 250 ML IV SCH (03:28)
[2019-08-29] MEDS: GABAPENTIN 300 MG CAP PO SCH ×3 (05:07→21:21)
[2019-08-29 06:17] LABS: Hematocrit 36.8 % (35.5-45.6); Hemoglobin 12.6 gm/dl (11.8-15.2)
[2019-08-29] MEDS: FOLIC ACID 1 MG TAB PO SCH (09:08)
[2019-08-29] MEDS: THIAMINE 100 MG TAB PO SCH (09:08)
[2019-08-29] MEDS: NICOTINE 21 MG/24 HR PATCH TD SCH (09:08)
[2019-08-29] MEDS: FAMOTIDINE 20 MG TAB PO SCH ×2 (09:09→21:21)
[2019-08-29] MEDS: amLODIPine 10 MG TAB PO SCH (09:09)
--- NOTE | 2019-08-29 09:18 | Progress Note ---
Assessment and Plan Assessment and plan: --Acute LE DVT:Anticoagulation with heparin drip standard protocol Posterior tibial vein DVT, superficial venous thrombosis in the greater saphenous vein Discussed with vascular surgery --Left foot abscess; Status post incision drainage, debridement of necrotic tissue wound care, ID following, on Rocephin,surg cultures positive Klebsiella --Sepsis. Continue IV antibiotics. Follow-up blood cultures, wound cultures gram negative rods ,follow sensitivities Etiology secondary to LLE gangrene. --Left lower extremity abscess/gangrene. Vascular following. MRI reveals extensive abscess s/p I&D, No evidence of osteomyelitis. --H/O Lt.Great toe amputation --Diabetes mellitus type 2. Continue Accu-Cheks and sliding scale insulin. Tight glycemic control to promote wound healing. --EtOH abuse. CIWA protocol. --Severe malnutrition/hypoalbuminemia; nutrition supplements Nutrition consult --History CVA. Supportive care --DVT prophylaxis; heparin Consultants recommendations noted and appreciated Monitor clinically and adjust management as needed History Interval history: Patient seen and examined medical records reviewed Patient feels slightly better no new complaints Vital signs noted Hospitalist Physical - Constitutional Vitals: Temp Pulse Resp BP Pulse Ox 98.5 F 91 H 20 144/95 93 08/29/19 07:41 08/29/19 09:09 08/29/19 07:41 08/29/19 09:09 08/29/19 07:41 General appearance: Present: no acute distress, well-nourished - EENT Eyes: Present: PERRL, EOM intact - Neck Neck: Present: supple, normal ROM - Respiratory Respiratory effort: normal Respiratory: bilateral: diminished, negative: rales, rhonchi, wheezing - Cardiovascular Rhythm: regular Heart Sounds: Present: S1 & S2 - Extremities Extremities: abnormal (surgical dressing in place) Extremity abnormal: edema, erythema - Abdominal General gastrointestinal: soft, non-tender, non-distended, normal bowel sounds - Integumentary Integumentary: Present: clear, warm - Psychiatric Psychiatric: appropriate mood/affect, cooperative - Neurologic Neurologic: CNII-XII intact, moves all extremities Results - Labs CBC & Chem 7: 08/29/19 05:46 08/25/19 04:29 Labs: Laboratory Last Values WBC 6.8 K/mm3 (4.5-11.0) 08/25/19 04:29 RBC 4.32 M/mm3 (3.65-5.03) 08/25/19 04:29 Hgb 12.6 gm/dl (11.8-15.2) 08/29/19 05:46 Hct 36.8 % (35.5-45.6) 08/29/19 05:46 MCV 90 fl (84-94) 08/25/19 04:29 MCH 31 pg (28-32) 08/25/19 04:29 MCHC 34 % (32-34) 08/25/19 04:29 RDW 15.0 % (13.2-15.2) 08/25/19 04:29 Plt Count 162 K/mm3 (140-440) 08/29/19 05:46 Lymph % (Auto) 16.2 % (13.4-35.0) 08/25/19 04:29 [place] % (Auto) 15.3 % (0.0-7.3) H 08/25/19 04:29 Eos % (Auto) 0.3 % (0.0-4.3) 08/25/19 04:29 Baso % (Auto) 0.4 % (0.0-1.8) 08/25/19 04:29 Lymph # 1.1 K/mm3 (1.2-5.4) L 08/25/19 04:29 Cedar # 1.0 K/mm3 (0.0-0.8) H 08/25/19 04:29 Eos # 0.0 K/mm3 (0.0-0.4) 08/25/19 04:29 Baso # 0.0 K/mm3 (0.0-0.1) 08/25/19 04:29 Add Manual Diff Complete 08/23/19 11:54 Total Counted 100 08/23/19 11:54 Seg Neutrophils % 67.8 % (40.0-70.0) 08/25/19 04:29 Seg Neuts % (Manual) 63.0 % (40.0-70.0) 08/23/19 11:54 Band Neutrophils % 20.0 % 08/23/19 11:54 Lymphocytes % (Manual) 11.0 % (13.4-35.0) L 08/23/19 11:54 Reactive Lymphs % (Man) 0 % 08/23/19 11:54 Monocytes % (Manual) 5.0 % (0.0-7.3) 08/23/19 11:54 Eosinophils % (Manual) 0 % (0.0-4.3) 08/23/19 11:54 Basophils % (Manual) 0 % (0.0-1.8) 08/23/19 11:54 Metamyelocytes % 1.0 % 08/23/19 11:54 Myelocytes % 0 % 08/23/19 11:54 Promyelocytes % 0 % 08/23/19 11:54 Blast Cells % 0 % 08/23/19 11:54 Nucleated RBC % Not Reportable 08/23/19 11:54 Seg Neutrophils # 4.6 K/mm3 (1.8-7.7) 08/25/19 04:29 Seg Neutrophils # Man 5.5 K/mm3 (1.8-7.7) 08/23/19 11:54 Band Neutrophils # 1.8 K/mm3 08/23/19 11:54 Lymphocytes # (Manual) 1.0 K/mm3 (1.2-5.4) L 08/23/19 11:54 Abs React Lymphs (Man) 0.0 K/mm3 08/23/19 11:54 Monocytes # (Manual) 0.4 K/mm3 (0.0-0.8) 08/23/19 11:54 Eosinophils # (Manual) 0.0 K/mm3 (0.0-0.4) 08/23/19 11:54 Basophils # (Manual) 0.0 K/mm3 (0.0-0.1) 08/23/19 11:54 Metamyelocytes # 0.1 K/mm3 08/23/19 11:54 Myelocytes # 0.0 K/mm3 08/23/19 11:54 Promyelocytes # 0.0 K/mm3 08/23/19 11:54 Blast Cells # 0.0 K/mm3 08/23/19 11:54 WBC Morphology Not Reportable 08/23/19 11:54 Hypersegmented Neuts Not Reportable 08/23/19 11:54 Hyposegmented Neuts Not Reportable 08/23/19 11:54 Hypogranular Neuts Not Reportable 08/23/19 11:54 Smudge Cells Not Reportable 08/23/19 11:54 Toxic Granulation Not Reportable 08/23/19 11:54 Toxic Vacuolation Not Reportable 08/23/19 11:54 Dohle Bodies Not Reportable 08/23/19 11:54 Pelger-Huet Anomaly Not Reportable 08/23/19 11:54 Jazmyn Rods Not Reportable 08/23/19 11:54 Platelet Estimate Consistent w auto 08/23/19 11:54 Clumped Platelets Not Reportable 08/23/19 11:54 Plt Clumps, EDTA Not Reportable 08/23/19 11:54 Large Platelets Not Reportable 08/23/19 11:54 Giant Platelets Not Reportable 08/23/19 11:54 Platelet Satelliting Not Reportable 08/23/19 11:54 Plt Morphology Comment Not Reportable 08/23/19 11:54 RBC Morphology Normal 08/23/19 11:54 Dimorphic RBCs Not Reportable 08/23/19 11:54 Polychromasia Not Reportable 08/23/19 11:54 Hypochromasia Not Reportable 08/23/19 11:54 Poikilocytosis Not Reportable 08/23/19 11:54 Anisocytosis Not Reportable 08/23/19 11:54 Microcytosis Not Reportable 08/23/19 11:54 Macrocytosis Not Reportable 08/23/19 11:54 Spherocytes Not Reportable 08/23/19 11:54 Pappenheimer Bodies Not Reportable 08/23/19 11:54 Sickle Cells Not Reportable 08/23/19 11:54 Target Cells Not Reportable 08/23/19 11:54 Tear Drop Cells Not Reportable 08/23/19 11:54 Ovalocytes Not Reportable 08/23/19 11:54 Helmet Cells Not Reportable 08/23/19 11:54 [place] Bodies Not Reportable 08/23/19 11:54 Dexter Rings Not Reportable 08/23/19 11:54 Sandy Cells Not Reportable 08/23/19 11:54 Bite Cells Not Reportable 08/23/19 11:54 Crenated Cell Not Reportable 08/23/19 11:54 Elliptocytes Not Reportable 08/23/19 11:54 Acanthocytes (Spur) Not Reportable 08/23/19 11:54 Rouleaux Not Reportable 08/23/19 11:54 Hemoglobin C Crystals Not Reportable 08/23/19 11:54 Schistocytes Not Reportable 08/23/19 11:54 Malaria parasites Not Reportable 08/23/19 11:54 [place] Bodies Not Reportable 08/23/19 11:54 Hem Pathologist Commnt No 08/23/19 11:54 PT 13.4 Sec. (12.2-14.9) 08/25/19 17:00 INR 1.03 (0.87-1.13) 08/25/19 17:00 APTT 28.2 Sec. (24.2-36.6) 08/25/19 17:00 Heparin Anti-Xa Level 0.31 U.I./ml (0.3-0.7) 08/28/19 08:51 VBG pH 7.362 (7.320-7.420) 08/22/19 13:23 Sodium 133 mmol/L (137-145) L 08/25/19 04:29 Potassium 3.4 mmol/L (3.6-5.0) L D 08/25/19 04:29 Chloride 99.9 mmol/L (98-107) 08/25/19 04:29 Carbon Dioxide 22 mmol/L (22-30) 08/25/19 04:29 Anion Gap 15 mmol/L 08/25/19 04:29 BUN 15 mg/dL (9-20) 08/25/19 04:29 Creatinine 0.5 mg/dL (0.8-1.5) L D 08/25/19 04:29 Estimated GFR > 60 ml/min 08/25/19 04:29 BUN/Creatinine Ratio 30 % 08/25/19 04:29 Glucose 202 mg/dL (75-100) H 08/25/19 04:29 POC Glucose 133 (70-105) H 08/29/19 06:19 Lactic Acid 1.90 mmol/L (0.7-2.0) 08/22/19 15:40 Calcium 8.2 mg/dL (8.4-10.2) L 08/25/19 04:29 Total Bilirubin 1.20 mg/dL (0.1-1.2) 08/23/19 11:54 AST 50 units/L (5-40) H 08/23/19 11:54 ALT 44 units/L (7-56) 08/23/19 11:54 Alkaline Phosphatase 128 units/L (35-129) 08/23/19 11:54 Total Protein 6.4 g/dL (6.3-8.2) 08/23/19 11:54 Albumin 2.6 g/dL (3.9-5) L 08/23/19 11:54 Albumin/Globulin Ratio 0.7 % 08/23/19 11:54 Urine Color Yellow (Yellow) 08/22/19 14:11 Urine Turbidity Clear (Clear) 08/22/19 14:11 Urine pH 5.0 (5.0-7.0) 08/22/19 14:11 Ur Specific [place] 1.028 (1.003-1.030) 08/22/19 14:11 Urine Protein <15 mg/dl mg/dL (Negative) 08/22/19 14:11 Urine Glucose (UA) >=500 mg/dL (Negative) 08/22/19 14:11 Urine Ketones 20 mg/dL (Negative) 08/22/19 14:11 Urine Blood Sm (Negative) 08/22/19 14:11 Urine Nitrite Neg (Negative) 08/22/19 14:11 Urine Bilirubin Neg (Negative) 08/22/19 14:11 Urine Urobilinogen 4.0 mg/dL (<2.0) 08/22/19 14:11 Ur Leukocyte Esterase Neg (Negative) 08/22/19 14:11 Urine WBC (Auto) 2.0 /HPF (0.0-6.0) 08/22/19 14:11 Urine RBC (Auto) 4.0 /HPF (0.0-6.0) 08/22/19 14:11 U Epithel Cells (Auto) 1.0 /HPF (0-13.0) 08/22/19 14:11 Vancomycin Trough 7.3 ug/mL (5.0-20.0) 08/28/19 05:51 Active Medications - Current Medications Current Medications: Generic Name Dose Route Start Last Admin Trade Name Freq PRN Reason Stop Dose Admin Acetaminophen 650 mg 08/22/19 17:02 08/26/19 01:30 Tylenol PO 650 mg Q4H PRN Administration Pain MILD(1-3)/Fever >100.5/MILES Albuterol 2.5 mg 08/22/19 17:02 Proventil IH Q4HRT PRN Shortness Of Breath Amlodipine Besylate 10 mg 08/23/19 10:00 08/29/19 09:09 Amlodipine PO 10 mg QDAY NADJA Administration Dextrose 50 ml 08/22/19 17:07 D50w (25gm) Syringe IV Q30MIN PRN Hypoglycemia Diphenhydramine HCl 50 mg 08/25/19 18:31 08/28/19 18:00 Benadryl PO 50 mg Q6H PRN Administration Rash Famotidine 20 mg 08/22/19 22:00 08/29/19 09:09 Pepcid PO 20 mg BID NADJA Administration Folic Acid 1 mg 08/23/19 10:00 08/29/19 09:08 Folvite PO 1 mg QDAY NADJA Administration Gabapentin 300 mg 08/28/19 14:00 08/29/19 05:07 Gabapentin PO 300 mg Q8HR NADJA Administration Guaifenesin 200 mg 08/25/19 18:43 08/28/19 12:32 Robitussin PO 200 mg Q4H PRN Administration Cough Sodium Chloride 1,000 mls @ 150 mls/hr 08/22/19 18:00 08/27/19 14:41 Nacl 0.9% 1000 Ml IV 100 mls/hr DIRECT NADJA Administration Heparin Sodium/Sodium Chloride 25,000 unit in 500 mls @ 27 mls/hr 08/25/19 17:00 08/29/19 01:06 Heparin/ 0.45% Nacl-25,000 Unit/500 Ml IV 2,650 units/hr TITR NADJA 53 mls/hr Administration Protocol 1,350 UNITS/HR Ceftriaxone Sodium 2 gm in 100 mls @ 200 mls/hr 08/27/19 14:00 08/28/19 13:54 Rocephin/Ns 2 Gm/100 Ml IV 200 mls/hr Q24H NADJA Administration Protocol Insulin Human Lispro 0 unit 08/22/19 18:00 08/29/19 06:21 Humalog SUB-Q Not Given Q6HR NADJA Protocol Lorazepam 2 mg 08/22/19 17:08 08/22/19 20:38 Ativan IV 2 mg Q1HR PRN Administration CIWA-Ar 8-15 Mirtazapine 15 mg 08/22/19 22:00 08/28/19 21:07 Remeron PO 15 mg QHS NADJA Administration Morphine Sulfate 2 mg 08/22/19 17:02 08/29/19 05:07 Morphine IV 2 mg Q4H PRN Administration Pain, Moderate (4-6) Nicotine 21 mg 08/22/19 20:00 08/29/19 09:08 Habitrol TD 21 mg QDAY NADJA Administration Ondansetron HCl 4 mg 08/22/19 17:02 Zofran IV Q8H PRN Nausea And Vomiting Oxycodone/Acetaminophen 1 tab 08/22/19 17:02 08/28/19 21:06 Percocet 5/325 PO 1 tab Q6H PRN Administration Pain, Moderate (4-6) Sodium Chloride 10 ml 08/22/19 22:00 08/28/19 21:08 Sodium Chloride Flush Syringe 10 Ml IV 10 ml BID NADJA Administration Sodium Chloride 10 ml 08/22/19 17:02 Sodium Chloride Flush Syringe 10 Ml IV PRN PRN LINE FLUSH Sodium Hypochlorite 1 applic 08/25/19 22:00 08/28/19 21:07 Dakin's Half Strength TP 1 applicatio BID NADJA Administration Thiamine HCl 100 mg 08/23/19 10:00 08/29/19 09:08 Vitamin B-1 PO 100 mg QDAY NADJA Administration Zolpidem Tartrate 5 mg 08/25/19 18:42 08/29/19 01:04 Ambien PO 5 mg QHS PRN Administration Sleep Nutrition/Malnutrition Assess - Dietary Evaluation Nutrition/Malnutrition Findings: Nutrition Notes Start: 08/27/19 11:12 Freq: Status: Active Protocol: Document 08/27/19 11:12 CC (Rec: 08/27/19 11:42 CC [email or web address]) Co-Sign 08/27/19 11:12 LP Nutrition Notes Need for Assessment generated from: LOS Initial or Follow up Assessment Current Diagnosis Diabetes,Hypertension Other Pertinent Diagnosis hx ETOH/nicotine abuse, SIRS, DM L foot infection, CVA Current Diet npo Labs/Tests reviewed Pertinent Medications reviewed Height 6 ft 2 in Weight 94.4 kg Usual Body Weight 97.7 kg [place] Body Weight (kg) 86.36 BMI 26.7 Intake Prior to Admission Good Weight change and time frame 11%/ 4months Weight Status Overweight Subjective/Other Information LOS. 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 Pt reported he has lost 23lbs starting in mid summer. Pt reported he does not weigh himself often and has his UBW is 215-220lbs. Per pt note pt has a 2+ non-pitting edema. Burn Absent Trauma Absent GI Symptoms None Food Allergy No Current % PO Negligible Minimum of two criteria Yes Interpretation of Weight Loss (severe) >7.5% in 3 months Fluid Accumulation Moderate to Severe (severe) #2 Nutrition Diagnosis Increased nutrient needs ( specify in comment below) Comments: protein Etiology wound healing As Evidenced by Signs and Symptoms diabetic ulcer on LE #1 Nutrition Diagnosis Malnutrition Etiology ETOH dependence, uncontrolled DM As Evidenced by Signs and Symptoms 11% wt loss in 3 months, moderate fluid accumulation Is patient on ventilator? No Is Patient Ambulatory and/or Out of Bed Yes REE-([facility]-ambulatory/OOB) [ [id number] [id number]] Calculation Used for Recommendations [facility] Additional Notes PRO: 118-141g/day (1.25-1.5g/ kg) Fluid: 1ml/kcal Nutrition Intervention Change Diet Order: consistent CHO when medically feasible Goal #1 Meet at least 80% of protein and energy needs Goal #2 wound healing Goal #3 diet advancement Follow-Up By: 08/30/19 Additional Comments f/u PO intakes, diet advancement
[2019-08-29] MEDS: SODIUM HYPOCHLORITE, DAKIN'S 1/2 STRENGTH (0.25%) 473 ML TOPICAL SOLN TP SCH ×2 (11:02→21:22)
[2019-08-29] MEDS: oxyCODONE /ACETAMINOPHEN 5-325MG TAB PO PRN ×2 (11:41→20:28)
[2019-08-29] MEDS: ACETAMINOPHEN 325 MG TAB PO PRN (13:45)
[2019-08-29] MEDS: cefTRIAXone/NS 2 GM/100 ML 2 GM/100 ML BAG IV SCH (13:45)
[2019-08-29] MEDS: diphenhydrAMINE 50 MG CAP PO PRN (13:45)
[2019-08-29] MEDS: SODIUM CHLORIDE 0.9% 1000 ML 1,000 ML IV SCH (13:56)
[2019-08-29] MEDS: MIRTAZAPINE 15 MG TAB PO SCH (21:21)
[2019-08-30] MEDS: SODIUM CHLORIDE 0.9% 1000 ML 1,000 ML IV SCH ×2 (00:39→12:04)
[2019-08-30] MEDS: INSULIN LISPRO 100 UNIT/ML SUB-Q SCH ×4 (01:13→17:26)
[2019-08-30] MEDS: oxyCODONE /ACETAMINOPHEN 5-325MG TAB PO PRN ×3 (02:50→17:26)
[2019-08-30 05:54] LABS: Basophils % (Auto) 0.6 % (0.0-1.8); Eosinophils # (Auto) 0.1 K/mm3 (0.0-0.4); Eosinophils % (Auto) 1.2 % (0.0-4.3); Hematocrit 38.7 % (35.5-45.6); Hemoglobin 13.2 gm/dl (11.8-15.2); Lymphocytes # (Auto) 1.7 K/mm3 (1.2-5.4); Mean Corpuscular HGB Conc 34 % (32-34); Mean Corpuscular Volume 89 fl (84-94); Monocytes # (Auto) 0.5 K/mm3 (0.0-0.8); Monocytes % (Auto) 10.7 % (0.0-7.3); Platelet Count 196 K/mm3 (140-440); Red Blood Count 4.33 M/mm3 (3.65-5.03); Red Cell Distribution Width 15.8 % (13.2-15.2)
[2019-08-30 06:18] LABS: Alanine Aminotransferase 22 units/L (7-56); Albumin 2.5 g/dL (3.9-5); BUN/Creatinine Ratio 8; Blood Urea Nitrogen 4 mg/dL (9-20); Calcium 8.6 mg/dL (8.4-10.2); Hemolysis Index 6
[2019-08-30] MEDS: HEPARIN/ 0.45% NACL DRIP 25,000 UNIT/500 ML BAG IV SCH ×2 (06:23→16:13)
[2019-08-30] MEDS: GABAPENTIN 300 MG CAP PO SCH ×3 (06:30→21:16)
--- NOTE | 2019-08-30 08:10 | Progress Note ---
Assessment and Plan Assessment and plan: 54-year-old male patient with significant history of diabetes mellitus alcohol use tobacco abuse was admitted through emergency room with foul-smelling discharge from left foot. Evaluated extensively noted to have left foot abscess evaluated by vascular and surgery underwent incision drainage and debridement ID evaluated started on empiric antibiotics, the patient also has left lower extremity DVT on heparin drip --Acute LE DVT:Anticoagulation with heparin drip standard protocol Posterior tibial vein DVT, superficial venous thrombosis in the greater saphenous vein Discussed with vascular surgery --Left foot abscess; Status post incision drainage, debridement of necrotic tissue wound care, ID following, on Rocephin,surg cultures positive Klebsiella --Sepsis. Continue IV antibiotics. Follow-up blood cultures, wound cultures gram negative rods ,follow sensitivities Etiology secondary to LLE gangrene. --Left lower extremity abscess/gangrene. Vascular following. MRI reveals extensive abscess s/p I&D, No evidence of osteomyelitis. --H/O Lt.Great toe amputation --Diabetes mellitus type 2. Continue Accu-Cheks and sliding scale insulin. Tight glycemic control to promote wound healing. --EtOH abuse. CIWA protocol. --Severe malnutrition/hypoalbuminemia; nutrition supplements Nutrition consult --History CVA. Supportive care --DVT prophylaxis; heparin Consultants recommendations noted and appreciated Monitor clinically and adjust management as needed Disposition; follow clinically Follow surgery and ID recommendations Discharge and medically stable History Interval history: Patient seen and examined medical records reviewed No new events reported by the nursing staff Patient complains of some pain in the legs Alert awake oriented 3 Vital signs reviewed Hospitalist Physical - Constitutional Vitals: Temp Pulse Resp BP Pulse Ox 97.3 F L 86 97 H 152/94 94 08/30/19 05:34 08/30/19 05:34 08/30/19 05:34 08/30/19 05:34 08/30/19 01:07 General appearance: Present: no acute distress, well-nourished - EENT Eyes: Present: PERRL, EOM intact - Neck Neck: Present: supple, normal ROM - Respiratory Respiratory effort: normal Respiratory: negative: diminished, rales, rhonchi, wheezing - Cardiovascular Rhythm: regular Heart Sounds: Present: S1 & S2 - Extremities Extremities: abnormal (left foot cellulitis dressing in place) Extremity abnormal: erythema, deformity - Abdominal General gastrointestinal: soft, non-tender, non-distended, normal bowel sounds - Integumentary Integumentary: Present: clear, warm - Psychiatric Psychiatric: appropriate mood/affect, cooperative - Neurologic Neurologic: CNII-XII intact, moves all extremities Results - Labs CBC & Chem 7: 08/30/19 05:12 08/30/19 05:12 Labs: Laboratory Last Values WBC 5.0 K/mm3 (4.5-11.0) 08/30/19 05:12 RBC 4.33 M/mm3 (3.65-5.03) 08/30/19 05:12 Hgb 13.2 gm/dl (11.8-15.2) 08/30/19 05:12 Hct 38.7 % (35.5-45.6) 08/30/19 05:12 MCV 89 fl (84-94) 08/30/19 05:12 MCH 30 pg (28-32) 08/30/19 05:12 MCHC 34 % (32-34) 08/30/19 05:12 RDW 15.8 % (13.2-15.2) H 08/30/19 05:12 Plt Count 196 K/mm3 (140-440) 08/30/19 05:12 Lymph % (Auto) 33.0 % (13.4-35.0) 08/30/19 05:12 [place] % (Auto) 10.7 % (0.0-7.3) H 08/30/19 05:12 Eos % (Auto) 1.2 % (0.0-4.3) 08/30/19 05:12 Baso % (Auto) 0.6 % (0.0-1.8) 08/30/19 05:12 Lymph # 1.7 K/mm3 (1.2-5.4) 08/30/19 05:12 [place] # 0.5 K/mm3 (0.0-0.8) 08/30/19 05:12 Eos # 0.1 K/mm3 (0.0-0.4) 08/30/19 05:12 Baso # 0.0 K/mm3 (0.0-0.1) 08/30/19 05:12 Add Manual Diff Complete 08/23/19 11:54 Total Counted 100 08/23/19 11:54 Seg Neutrophils % 54.5 % (40.0-70.0) 08/30/19 05:12 Seg Neuts % (Manual) 63.0 % (40.0-70.0) 08/23/19 11:54 Band Neutrophils % 20.0 % 08/23/19 11:54 Lymphocytes % (Manual) 11.0 % (13.4-35.0) L 08/23/19 11:54 Reactive Lymphs % (Man) 0 % 08/23/19 11:54 Monocytes % (Manual) 5.0 % (0.0-7.3) 08/23/19 11:54 Eosinophils % (Manual) 0 % (0.0-4.3) 08/23/19 11:54 Basophils % (Manual) 0 % (0.0-1.8) 08/23/19 11:54 Metamyelocytes % 1.0 % 08/23/19 11:54 Myelocytes % 0 % 08/23/19 11:54 Promyelocytes % 0 % 08/23/19 11:54 Blast Cells % 0 % 08/23/19 11:54 Nucleated RBC % Not Reportable 08/23/19 11:54 Seg Neutrophils # 2.7 K/mm3 (1.8-7.7) 08/30/19 05:12 Seg Neutrophils # Man 5.5 K/mm3 (1.8-7.7) 08/23/19 11:54 Band Neutrophils # 1.8 K/mm3 08/23/19 11:54 Lymphocytes # (Manual) 1.0 K/mm3 (1.2-5.4) L 08/23/19 11:54 Abs React Lymphs (Man) 0.0 K/mm3 08/23/19 11:54 Monocytes # (Manual) 0.4 K/mm3 (0.0-0.8) 08/23/19 11:54 Eosinophils # (Manual) 0.0 K/mm3 (0.0-0.4) 08/23/19 11:54 Basophils # (Manual) 0.0 K/mm3 (0.0-0.1) 08/23/19 11:54 Metamyelocytes # 0.1 K/mm3 08/23/19 11:54 Myelocytes # 0.0 K/mm3 08/23/19 11:54 Promyelocytes # 0.0 K/mm3 08/23/19 11:54 Blast Cells # 0.0 K/mm3 08/23/19 11:54 WBC Morphology Not Reportable 08/23/19 11:54 Hypersegmented Neuts Not Reportable 08/23/19 11:54 Hyposegmented Neuts Not Reportable 08/23/19 11:54 Hypogranular Neuts Not Reportable 08/23/19 11:54 Smudge Cells Not Reportable 08/23/19 11:54 Toxic Granulation Not Reportable 08/23/19 11:54 Toxic Vacuolation Not Reportable 08/23/19 11:54 Dohle Bodies Not Reportable 08/23/19 11:54 Pelger-Huet Anomaly Not Reportable 08/23/19 11:54 Jazmyn Rods Not Reportable 08/23/19 11:54 Platelet Estimate Consistent w auto 08/23/19 11:54 Clumped Platelets Not Reportable 08/23/19 11:54 Plt Clumps, EDTA Not Reportable 08/23/19 11:54 Large Platelets Not Reportable 08/23/19 11:54 Giant Platelets Not Reportable 08/23/19 11:54 Platelet Satelliting Not Reportable 08/23/19 11:54 Plt Morphology Comment Not Reportable 08/23/19 11:54 RBC Morphology Normal 08/23/19 11:54 Dimorphic RBCs Not Reportable 08/23/19 11:54 Polychromasia Not Reportable 08/23/19 11:54 Hypochromasia Not Reportable 08/23/19 11:54 Poikilocytosis Not Reportable 08/23/19 11:54 Anisocytosis Not Reportable 08/23/19 11:54 Microcytosis Not Reportable 08/23/19 11:54 Macrocytosis Not Reportable 08/23/19 11:54 Spherocytes Not Reportable 08/23/19 11:54 Pappenheimer Bodies Not Reportable 08/23/19 11:54 Sickle Cells Not Reportable 08/23/19 11:54 Target Cells Not Reportable 08/23/19 11:54 Tear Drop Cells Not Reportable 08/23/19 11:54 Ovalocytes Not Reportable 08/23/19 11:54 Helmet Cells Not Reportable 08/23/19 11:54 [place] Bodies Not Reportable 08/23/19 11:54 [place] Rings Not Reportable 08/23/19 11:54 [place] Cells Not Reportable 08/23/19 11:54 Bite Cells Not Reportable 08/23/19 11:54 Crenated Cell Not Reportable 08/23/19 11:54 Elliptocytes Not Reportable 08/23/19 11:54 Acanthocytes (Spur) Not Reportable 08/23/19 11:54 Rouleaux Not Reportable 08/23/19 11:54 Hemoglobin C Crystals Not Reportable 08/23/19 11:54 Schistocytes Not Reportable 08/23/19 11:54 Malaria parasites Not Reportable 08/23/19 11:54 [place] Bodies Not Reportable 08/23/19 11:54 Hem Pathologist Commnt No 08/23/19 11:54 PT 13.4 Sec. (12.2-14.9) 08/25/19 17:00 INR 1.03 (0.87-1.13) 08/25/19 17:00 APTT 28.2 Sec. (24.2-36.6) 08/25/19 17:00 Heparin Anti-Xa Level 0.32 U.I./ml (0.3-0.7) 08/29/19 09:03 VBG pH 7.362 (7.320-7.420) 08/22/19 13:23 Sodium 136 mmol/L (137-145) L 08/30/19 05:12 Potassium 3.4 mmol/L (3.6-5.0) L 08/30/19 05:12 Chloride 99.1 mmol/L (98-107) 08/30/19 05:12 Carbon Dioxide 26 mmol/L (22-30) 08/30/19 05:12 Anion Gap 14 mmol/L 08/30/19 05:12 BUN 4 mg/dL (9-20) L 08/30/19 05:12 Creatinine 0.5 mg/dL (0.8-1.5) L 08/30/19 05:12 Estimated GFR > 60 ml/min 08/30/19 05:12 BUN/Creatinine Ratio 8 % 08/30/19 05:12 Glucose 144 mg/dL (75-100) H 08/30/19 05:12 POC Glucose 135 (70-105) H 08/30/19 06:46 Lactic Acid 1.90 mmol/L (0.7-2.0) 08/22/19 15:40 Calcium 8.6 mg/dL (8.4-10.2) 08/30/19 05:12 Total Bilirubin 0.80 mg/dL (0.1-1.2) 08/30/19 05:12 AST 16 units/L (5-40) 08/30/19 05:12 ALT 22 units/L (7-56) 08/30/19 05:12 Alkaline Phosphatase 184 units/L (35-129) H 08/30/19 05:12 Total Protein 6.6 g/dL (6.3-8.2) 08/30/19 05:12 Albumin 2.5 g/dL (3.9-5) L 08/30/19 05:12 Albumin/Globulin Ratio 0.6 % 08/30/19 05:12 Urine Color Yellow (Yellow) 08/22/19 14:11 Urine Turbidity Clear (Clear) 08/22/19 14:11 Urine pH 5.0 (5.0-7.0) 08/22/19 14:11 Ur Specific [place] 1.028 (1.003-1.030) 08/22/19 14:11 Urine Protein <15 mg/dl mg/dL (Negative) 08/22/19 14:11 Urine Glucose (UA) >=500 mg/dL (Negative) 08/22/19 14:11 Urine Ketones 20 mg/dL (Negative) 08/22/19 14:11 Urine Blood Sm (Negative) 08/22/19 14:11 Urine Nitrite Neg (Negative) 08/22/19 14:11 Urine Bilirubin Neg (Negative) 08/22/19 14:11 Urine Urobilinogen 4.0 mg/dL (<2.0) 08/22/19 14:11 Ur Leukocyte Esterase Neg (Negative) 08/22/19 14:11 Urine WBC (Auto) 2.0 /HPF (0.0-6.0) 08/22/19 14:11 Urine RBC (Auto) 4.0 /HPF (0.0-6.0) 08/22/19 14:11 U Epithel Cells (Auto) 1.0 /HPF (0-13.0) 08/22/19 14:11 Vancomycin Trough 7.3 ug/mL (5.0-20.0) 08/28/19 05:51 Active Medications - Current Medications Current Medications: Generic Name Dose Route Start Last Admin Trade Name Freq PRN Reason Stop Dose Admin Acetaminophen 650 mg 08/22/19 17:02 08/29/19 13:45 Tylenol PO 650 mg Q4H PRN Administration Pain MILD(1-3)/Fever >100.5/MILES Albuterol 2.5 mg 08/22/19 17:02 Proventil IH Q4HRT PRN Shortness Of Breath Amlodipine Besylate 10 mg 08/23/19 10:00 08/29/19 09:09 Amlodipine PO 10 mg QDAY NADJA Administration Dextrose 50 ml 08/22/19 17:07 D50w (25gm) Syringe IV Q30MIN PRN Hypoglycemia Diphenhydramine HCl 50 mg 08/25/19 18:31 08/29/19 13:45 Benadryl PO 50 mg Q6H PRN Administration Rash Famotidine 20 mg 08/22/19 22:00 08/29/19 21:21 Pepcid PO 20 mg BID NADJA Administration Folic Acid 1 mg 08/23/19 10:00 08/29/19 09:08 Folvite PO 1 mg QDAY NADJA Administration Gabapentin 300 mg 08/28/19 14:00 08/30/19 06:30 Gabapentin PO 300 mg Q8HR NADJA Administration Guaifenesin 200 mg 08/25/19 18:43 08/28/19 12:32 Robitussin PO 200 mg Q4H PRN Administration Cough Sodium Chloride 1,000 mls @ 150 mls/hr 08/22/19 18:00 08/30/19 00:39 Nacl 0.9% 1000 Ml IV 100 mls/hr DIRECT NADJA Administration Heparin Sodium/Sodium Chloride 25,000 unit in 500 mls @ 27 mls/hr 08/25/19 17:00 08/30/19 06:23 Heparin/ 0.45% Nacl-25,000 Unit/500 Ml IV 2,650 units/hr TITR NADJA 53 mls/hr Administration Protocol 1,350 UNITS/HR Ceftriaxone Sodium 2 gm in 100 mls @ 200 mls/hr 08/27/19 14:00 08/29/19 13:45 Rocephin/Ns 2 Gm/100 Ml IV 200 mls/hr Q24H NADJA Administration Protocol Insulin Human Lispro 0 unit 08/22/19 18:00 08/30/19 06:39 Humalog SUB-Q Not Given Q6HR [facility] Protocol Lorazepam 2 mg 08/22/19 17:08 08/22/19 20:38 Ativan IV 2 mg Q1HR PRN Administration CIWA-Ar 8-15 Mirtazapine 15 mg 08/22/19 22:00 08/29/19 21:21 Remeron PO 15 mg QHS NADJA Administration Morphine Sulfate 2 mg 08/22/19 17:02 08/29/19 15:46 Morphine IV 2 mg Q4H PRN Administration Pain, Moderate (4-6) Nicotine 21 mg 08/22/19 20:00 08/29/19 09:08 Habitrol TD 21 mg QDAY NADJA Administration Ondansetron HCl 4 mg 08/22/19 17:02 Zofran IV Q8H PRN Nausea And Vomiting Oxycodone/Acetaminophen 1 tab 08/22/19 17:02 08/30/19 02:50 Percocet 5/325 PO 1 tab Q6H PRN Administration Pain, Moderate (4-6) Potassium Chloride 40 meq 08/30/19 08:08 K-Dur PO 08/30/19 08:09 ONCE ONE Sodium Chloride 10 ml 08/22/19 22:00 08/29/19 21:20 Sodium Chloride Flush Syringe 10 Ml IV 10 ml BID NADJA Administration Sodium Chloride 10 ml 08/22/19 17:02 Sodium Chloride Flush Syringe 10 Ml IV PRN PRN LINE FLUSH Sodium Hypochlorite 1 applic 08/25/19 22:00 08/29/19 21:22 Dakin's Half Strength TP 1 applicatio BID NADJA Administration Thiamine HCl 100 mg 08/23/19 10:00 08/29/19 09:08 Vitamin B-1 PO 100 mg QDAY NADJA Administration Zolpidem Tartrate 5 mg 08/25/19 18:42 08/29/19 21:27 Ambien PO 5 mg QHS PRN Administration Sleep Nutrition/Malnutrition Assess - Dietary Evaluation Nutrition/Malnutrition Findings: Nutrition Notes Start: 08/27/19 11:12 Freq: Status: Active Protocol: Document 08/27/19 11:12 CC (Rec: 08/27/19 11:42 CC [id number]) Co-Sign 08/27/19 11:12 LP Nutrition Notes Need for Assessment generated from: LOS Initial or Follow up Assessment Current Diagnosis Diabetes,Hypertension Other Pertinent Diagnosis hx ETOH/nicotine abuse, SIRS, DM L foot infection, CVA Current Diet npo Labs/Tests reviewed Pertinent Medications reviewed Height 6 ft 2 in Weight 94.4 kg Usual Body Weight 97.7 kg [place] Body Weight (kg) 86.36 BMI 26.7 Intake Prior to Admission Good Weight change and time frame 11%/ 4months Weight Status Overweight Subjective/Other Information LOS. 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 Pt reported he has lost 23lbs starting in mid summer. Pt reported he does not weigh himself often and has his UBW is 215-220lbs. Per pt note pt has a 2+ non-pitting edema. Burn Absent Trauma Absent GI Symptoms None Food Allergy No Current % PO Negligible Minimum of two criteria Yes Interpretation of Weight Loss (severe) >7.5% in 3 months Fluid Accumulation Moderate to Severe (severe) #2 Nutrition Diagnosis Increased nutrient needs ( specify in comment below) Comments: protein Etiology wound healing As Evidenced by Signs and Symptoms diabetic ulcer on LE #1 Nutrition Diagnosis Malnutrition Etiology ETOH dependence, uncontrolled DM As Evidenced by Signs and Symptoms 11% wt loss in 3 months, moderate fluid accumulation Is patient on ventilator? No Is Patient Ambulatory and/or Out of Bed Yes REE-([facility]-ambulatory/OOB) [ 2416.375 [id number]] Calculation Used for Recommendations [facility] Additional Notes PRO: 118-141g/day (1.25-1.5g/ kg) Fluid: 1ml/kcal Nutrition Intervention Change Diet Order: consistent CHO when medically feasible Goal #1 Meet at least 80% of protein and energy needs Goal #2 wound healing Goal #3 diet advancement Follow-Up By: 08/30/19 Additional Comments f/u PO intakes, diet advancement
[2019-08-30] MEDS: MORPHINE 2 MG/1 ML INJ IV PRN ×2 (08:27→20:53)
[2019-08-30] MEDS ORDERED: POTASSIUM CHLORIDE ER 20 MEQ TAB PO ONE (09:00)
[2019-08-30] MEDS: FOLIC ACID 1 MG TAB PO SCH (09:29)
[2019-08-30] MEDS: NICOTINE 21 MG/24 HR PATCH TD SCH (09:29)
[2019-08-30] MEDS: THIAMINE 100 MG TAB PO SCH (09:29)
[2019-08-30] MEDS: FAMOTIDINE 20 MG TAB PO SCH ×2 (09:29→21:16)
[2019-08-30] MEDS: amLODIPine 10 MG TAB PO SCH (09:29)
--- NOTE | 2019-08-30 13:27 | Progress Note ---
Assessment and Plan s/p I&D with debridement of left foot with growth of Klebsiella on appropriate antibiotics. stable afebrile. left leg DVT on therapeutic heparin drip. will take to OR in the morning for I&D of leg abscess and skin dibridement of left foot. continue glycemic control to promote wound healing Subjective Date of service: 08/30/19 Patient Reports: Positive: no new complaints (no acute events overnight. pt says that his calf is the most painful part of his leg. ), other (He says the gabapentin had improved the shooting pain he was having) Objective Vital Signs - 12hr 08/30/19 08/30/19 08/30/19 05:34 07:49 11:16 Temperature 97.3 F L 98.2 F 98.8 F Pulse Rate 86 83 80 Respiratory 97 H 18 18 Rate Blood Pressure 148/87 150/92 Blood Pressure 152/94 [Right] O2 Sat by Pulse 94 95 Oximetry - General physical appearance well developed, well nourished, no distress - Respiratory normal expansion, normal respiratory effort - Musculoskeletal other (left leg showing decreased erythema compared to two days ago. a new 2x3cm fluctuant mass is on the mid wilkes, medial of midline. tender to palpation c/w abscess. foot continues to be edemetous, less tender to manipulation. granulation tissue present, no drainage, or odor. ~2x2cm necrotic lip of tissue over the medial maleolus is more demarkated. ) - Labs 08/30/19 05:12 08/30/19 05:12 Diabetes panel 08/30/19 Range/Units 05:12 Sodium 136 L (137-145) mmol/L Potassium 3.4 L (3.6-5.0) mmol/L Chloride 99.1 (98-107) mmol/L Carbon Dioxide 26 (22-30) mmol/L BUN 4 L (9-20) mg/dL Creatinine 0.5 L (0.8-1.5) mg/dL Glucose 144 H (75-100) mg/dL Calcium 8.6 (8.4-10.2) mg/dL AST 16 (5-40) units/L ALT 22 (7-56) units/L Alkaline Phosphatase 184 H (35-129) units/L Total Protein 6.6 (6.3-8.2) g/dL Albumin 2.5 L (3.9-5) g/dL Calcium panel 08/30/19 Range/Units 05:12 Calcium 8.6 (8.4-10.2) mg/dL Albumin 2.5 L (3.9-5) g/dL Pituitary panel 08/30/19 Range/Units 05:12 Sodium 136 L (137-145) mmol/L Potassium 3.4 L (3.6-5.0) mmol/L Chloride 99.1 (98-107) mmol/L Carbon Dioxide 26 (22-30) mmol/L BUN 4 L (9-20) mg/dL Creatinine 0.5 L (0.8-1.5) mg/dL Glucose 144 H (75-100) mg/dL Calcium 8.6 (8.4-10.2) mg/dL Adrenal panel 08/30/19 Range/Units 05:12 Sodium 136 L (137-145) mmol/L Potassium 3.4 L (3.6-5.0) mmol/L Chloride 99.1 (98-107) mmol/L Carbon Dioxide 26 (22-30) mmol/L BUN 4 L (9-20) mg/dL Creatinine 0.5 L (0.8-1.5) mg/dL Glucose 144 H (75-100) mg/dL Calcium 8.6 (8.4-10.2) mg/dL Total Bilirubin 0.80 (0.1-1.2) mg/dL AST 16 (5-40) units/L ALT 22 (7-56) units/L Alkaline Phosphatase 184 H (35-129) units/L Total Protein 6.6 (6.3-8.2) g/dL Albumin 2.5 L (3.9-5) g/dL
[2019-08-30] MEDS: cefTRIAXone/NS 2 GM/100 ML 2 GM/100 ML BAG IV SCH (13:58)
[2019-08-30] MEDS: SODIUM HYPOCHLORITE, DAKIN'S 1/2 STRENGTH (0.25%) 473 ML TOPICAL SOLN TP SCH (13:58)
--- NOTE | 2019-08-30 14:01 | Progress Note ---
Assessment and Plan Cultures: 08/24 blood culture - NGTD 08/24 surgical biopsy culture - Klebsiella pneumoniae 08/24 surgical culture - Klebsiella pneumoniae A/P: 54 yo m PMHx DM2, EtOH abuse, nicotine abuse admitted with gangrene of the L foot. 1. Acute sepsis secondary to L foot gangrene and abscess - No evidence of osteomyelitis on MRI. s/p I&D of left foot abscess with excision of necrotic tissue on 08/24/2019. At present would recommend treatment as abscess/necrosis/cellulitis for a 2 week course. At risk of limb loss. 2. DM2 - recommend tight glycemic control for improved wound healing. 3. Nicotine abuse - recommended cessation for improved wound healing 4. Vancomycin allergy - not true allergy per patient. Says he gets red man syndrome, resolved with Benadryl. Red man syndrome can also be avoided by infusing vancomycin at half rate. 5. Left leg DVT - avoid fluoroquinolones since patient may be d/pastora on anticoagulation. Recs: - Continue ceftriaxone 2g q24h - noted plans for OR tomorrow Renée Gardner MD, FACP [facility] M: [phone] O: [phone] F: [phone] Subjective Date of service: 08/30/19 Principal diagnosis: left foot wound Interval history: No fever. Tolerating abx. Denies any nausea, vomiting. no rash. Planned for OR tomorrow. Objective - Exam Narrative Exam: Physical Exam: Constitutional: Alert, cooperative. No acute distress Head, Ears, Nose: Normocephalic, atraumatic. External ears, nose normal Eyes: Conjunctivae/corneas clear. No icterus. No ptosis. Neck: Supple, no meningeal signs Cardiovascular: S1, S2 normal. Respiratory: Good air entry, clear to auscultation bilaterally GI: Soft, non-tender; bowel sounds normal. No peritoneal signs Musculoskeletal: Left leg in dressing Skin: No rash or abscess Hem/Lymphatic: No palpable cervical or supraclavicular nodes. No lymphangitis Psych: Mood ok. Affect normal Neurological: Awake, alert, oriented. No gross abnormality - Constitutional Vitals: Vital Signs Temp Pulse Resp BP Pulse Ox 98.8 F 80 18 150/92 95 08/30/19 11:16 08/30/19 11:16 08/30/19 11:16 08/30/19 11:16 08/30/19 11:16 Temperature -Last 24 Hours Temperature 98.8 F Temperature 98.2 F Temperature 97.3 F Temperature 99.4 F Temperature 99.1 F Temperature 99.0 F - Labs CBC & Chem 7: 08/30/19 05:12 08/30/19 05:12 Labs: Abnormal lab results 08/29/19 08/30/19 08/30/19 Range/Units 18:21 01:20 05:12 RDW 15.8 H (13.2-15.2) % [place] % (Auto) 10.7 H (0.0-7.3) % Heparin Anti-Xa Level (0.3-0.7) U.I./ml Sodium (137-145) mmol/L Potassium (3.6-5.0) mmol/L BUN (9-20) mg/dL Creatinine (0.8-1.5) mg/dL Glucose (75-100) mg/dL POC Glucose 210 H 168 H (70-105) Alkaline Phosphatase (35-129) units/L Albumin (3.9-5) g/dL 08/30/19 08/30/19 08/30/19 Range/Units 05:12 06:46 09:00 RDW (13.2-15.2) % [place] % (Auto) (0.0-7.3) % Heparin Anti-Xa Level 0.20 L (0.3-0.7) U.I./ml Sodium 136 L (137-145) mmol/L Potassium 3.4 L (3.6-5.0) mmol/L BUN 4 L (9-20) mg/dL Creatinine 0.5 L (0.8-1.5) mg/dL Glucose 144 H (75-100) mg/dL POC Glucose 135 H (70-105) Alkaline Phosphatase 184 H (35-129) units/L Albumin 2.5 L (3.9-5) g/dL 08/30/19 Range/Units 11:24 RDW (13.2-15.2) % [place] % (Auto) (0.0-7.3) % Heparin Anti-Xa Level (0.3-0.7) U.I./ml Sodium (137-145) mmol/L Potassium (3.6-5.0) mmol/L BUN (9-20) mg/dL Creatinine (0.8-1.5) mg/dL Glucose (75-100) mg/dL POC Glucose 210 H (70-105) Alkaline Phosphatase (35-129) units/L Albumin (3.9-5) g/dL
[2019-08-30] MEDS: MIRTAZAPINE 15 MG TAB PO SCH (21:16)
[2019-08-30] MEDS: ZOLPIDEM 5 MG TAB PO PRN (23:55)
[2019-08-31] MEDS: INSULIN LISPRO 100 UNIT/ML SUB-Q SCH ×4 (00:30→17:57)
[2019-08-31] MEDS: SODIUM HYPOCHLORITE, DAKIN'S 1/2 STRENGTH (0.25%) 473 ML TOPICAL SOLN TP SCH ×2 (00:59→11:04)
[2019-08-31] MEDS: SODIUM CHLORIDE 0.9% 1000 ML 1,000 ML IV SCH ×3 (04:20→15:25)
[2019-08-31] MEDS: MORPHINE 2 MG/1 ML INJ IV PRN (04:41)
[2019-08-31] MEDS: GABAPENTIN 300 MG CAP PO SCH ×4 (05:56→21:17)
[2019-08-31] MEDS ORDERED: fentaNYL 100 MCG/2 ML INJ IV PRN (07:25)
[2019-08-31] MEDS ORDERED: ONDANSETRON 4 MG/2 ML INJ IV PRN (07:25)
--- NOTE | 2019-08-31 07:25 | Anesthesia Day of Surgery ---
Anesthesia Day of Surgery - Day of Surgery Patient Examined: Yes Patient H&P Reviewed: Yes Patient is NPO: Yes
[2019-08-31] MEDS ORDERED: HYDROmorphone 1 MG/1 ML INJ ONE (07:30)
[2019-08-31] MEDS ORDERED: PROPOFOL 200 MG/20 ML VIAL IV ONE (07:31)
[2019-08-31] MEDS ORDERED: LIDOCAINE MPF (2%) 20 MG/1 ML VIAL 5 ML ONE (07:31)
[2019-08-31] MEDS: ACETAMINOPHEN 325 MG TAB PO PRN (07:35)
[2019-08-31] MEDS ORDERED: BACITRACIN 50,000 UNIT VIAL ONE (07:55)
[2019-08-31] MEDS ORDERED: SODIUM CHLORIDE P/F VIAL 10 ML 10 ML ONE (07:55)
[2019-08-31] MEDS ORDERED: MIDAZOLAM 2 MG/2 ML INJ IV NR (08:00)
[2019-08-31] MEDS ORDERED: BACITRACIN 50,000 UNIT VIAL IR ONE ×2 (08:10→08:15)
[2019-08-31] MEDS ORDERED: PHENYLEPHRINE/NS 1,000 MCG/10 ML SYRINGE (OR USE) IV ONE (08:23)
[2019-08-31] MEDS ORDERED: ONDANSETRON 4 MG/2 ML INJ ONE (08:24)
--- NOTE | 2019-08-31 08:42 | Operative Report ---
Operative Report Operative Report: DATE: 08/31/19 SURGEON: CHELSEA VARGHESE MD PRE-OP DX: LEFT LEG ABSCESS POST OP DX: SAME PRE-OP PROCEDURE: INCISION AND DRAINAGE OF LEFT LEG ABSCESS AND DEBRIDEMENT OF NECROTIC SKIN LEFT FOOT ANESTHESIA: GENERAL WITH LMA EBL:< 20ML COMPLICATIONS: NONE IMMEDIATE SPECIMEN: CULTURE OF WOUND FINDINGS: 2X3CM ABSCESS ON MEDIAL PORTION OF LEFT CALF, NECROTIC SKIN OVER LEFT MEDIAL MALEOLUS. INDICATION: 54 YEAR OLD MALE WITH LEFT FOOT ABSCESS THAT WAS I&D'D LAST WEEK, WITH SIGNIFICANT PERSISTENT CELLULITIS, IS ON ANTIBIOTIC THERAPY AND DRESSING CHANGES. A NEW SMALL ABSCESS HAD FORMED ON THE CALF SINCE LAST PROCEDURE. TAKING TO OR FOR DRAINAGE AND DEBRIDEMENT OF SKIN EDGES. DETAILS OF PROCEDURE: PT WAS BROUGHT INTO OR SUITE. LAID IN SUPINE POSITION. RIGHT LEG SCD WAS PLACED. GENERAL ANESTHESIA WAS INDUCED WITH LMA WITHOUT INCIDENT. LEFT LEG WAS PREPPED AND DRAPED IN STERILE FASHION. A 2CM INCISION WAS MADE OVER THE CALF ABSCESS, PURULENT CURD LIKE MATERIAL WAS EXPRESSED. THE CAVITY WAS EXPLORED WITH YEIMI CLAMP TO ENSURE NO RESIDUAL POCKETS REMAINED. A 2X2CM OF NECROTIC SKIN AND SUBCUTANEOUS TISSUE WAS EXCISED OVER THE MEDIAL MALEOLUS. A CURETTE WAS USED TO SLOUGH ANY FLIMSY TISSUE. BOTH CAVITIES WERE IRRIGATED WITH BACITRACIN INFUSED SALINE. HEMOSTASIS WAS ACHEIVED WITH ELECTRO CAUTERY FOLLOWED BY SURGICEL IN ANTICIPATION THAT HE MAY HAVE SOME BLEEDING POST OP, ESPECIALLY WHEN HIS HEPARIN DRIP IS RESUMED FOR A NEWLY DIAGNOSED LEFT LEG DVT. THE CALF ABSCESS CAVITY WAS ALSO PACKED WITH IODOFORM GAUZE. STERILE DRESSING WAS PLACED AROUND THE FOOT AND LOWER LET. PT WAS AWOKEN, AND TAKEN TO RECOVERY IN STABLE CONDITION. ALL COUNTS WERE CORRECT.
[2019-08-31] MEDS: oxyCODONE /ACETAMINOPHEN 5-325MG TAB PO PRN ×3 (11:01→20:22)
[2019-08-31] MEDS: THIAMINE 100 MG TAB PO SCH (11:03)
[2019-08-31] MEDS: FOLIC ACID 1 MG TAB PO SCH (11:03)
[2019-08-31] MEDS: FAMOTIDINE 20 MG TAB PO SCH ×2 (11:03→21:17)
[2019-08-31] MEDS: amLODIPine 10 MG TAB PO SCH (11:03)
[2019-08-31] MEDS: NICOTINE 21 MG/24 HR PATCH TD SCH (11:04)
[2019-08-31 12:19] LABS: Basophils % (Auto) 0.4 % (0.0-1.8); Eosinophils # (Auto) 0.1 K/mm3 (0.0-0.4); Eosinophils % (Auto) 1.3 % (0.0-4.3); Hemoglobin 13.4 gm/dl (11.8-15.2); Lymphocytes # (Auto) 1.5 K/mm3 (1.2-5.4); Lymphocytes % (Auto) 27.1 % (13.4-35.0); Mean Corpuscular HGB Conc 34 % (32-34); Mean Corpuscular Volume 91 fl (84-94); Monocytes # (Auto) 0.4 K/mm3 (0.0-0.8); Monocytes % (Auto) 7.8 % (0.0-7.3); Platelet Count 232 K/mm3 (140-440); Red Blood Count 4.38 M/mm3 (3.65-5.03); Red Cell Distribution Width 16.1 % (13.2-15.2)
[2019-08-31 12:36] LABS: BUN/Creatinine Ratio 12; Blood Urea Nitrogen 7 mg/dL (9-20); Calcium 8.9 mg/dL (8.4-10.2); Hemolysis Index 18
[2019-08-31] MEDS: cefTRIAXone/NS 2 GM/100 ML 2 GM/100 ML BAG IV SCH (13:45)
[2019-08-31] MEDS: HEPARIN/ 0.45% NACL DRIP 25,000 UNIT/500 ML BAG IV SCH (13:47)
--- NOTE | 2019-08-31 14:21 | Progress Note ---
Assessment and Plan /-Left foot abscess; Status post incision drainage on 08/24/19 with debridement of necrotic tissue cont wound care, ID following, on Rocephin, surg cultures positive Klebsiella had 2nd debridement today /Acute LE DVT:Anticoagulation with heparin drip standard protocol Posterior tibial vein DVT, superficial venous thrombosis in the greater saphenous vein Discussed with vascular surgery /Sepsis. Continue IV antibiotics. Follow-up blood cultures, wound cultures gram negative rods ,follow sensitivities Etiology secondary to LLE gangrene. /Left lower extremity abscess/gangrene. Vascular following. MRI reveals extensive abscess s/p I&D, No evidence of osteomyelitis. /H/O Lt.Great toe amputation /Diabetes mellitus type 2. Continue Accu-Cheks and sliding scale insulin. Tight glycemic control to promote wound healing. /EtOH abuse. CIWA protocol. /Severe malnutrition/hypoalbuminemia; nutrition supplements Nutrition consult /History CVA. Supportive care /-DVT prophylaxis; heparin Consultants recommendations noted and appreciated Monitor clinically and adjust management as needed Disposition; follow clinically Follow surgery and ID recommendations Discharge when medically stable Brief History 54-year-old male patient with significant history of diabetes mellitus alcohol use tobacco abuse was admitted through emergency room with foul-smelling discharge from left foot. Evaluated extensively noted to have left foot abscess evaluated by vascular and surgery underwent incision drainage and debridement ID evaluated started on empiric antibiotics, the patient also has left lower extremity DVT on heparin drip Hospitalist Physical General appearance: Present: no acute distress, well-nourished - EENT Eyes: Present: PERRL, EOM intact - Neck Neck: Present: supple, normal ROM - Respiratory Respiratory effort: normal Respiratory: negative: diminished, rales, rhonchi, wheezing - Cardiovascular Rhythm: regular Heart Sounds: Present: S1 & S2 - Extremities Extremities: abnormal (left foot dressing in place) Extremity abnormal: erythema, deformity - Abdominal General gastrointestinal: soft, non-tender, non-distended, normal bowel sounds - Integumentary Integumentary: Present: clear, warm - Psychiatric Psychiatric: appropriate mood/affect, cooperative - Neurologic Neurologic: CNII-XII intact, moves all extremities Subjective Date of service: 08/31/19 Principal diagnosis: left foot wound Interval history: Patient seen and examined. Medical records and medication list reviewed. No acute event overnight noted by the RN. Patient denies any chest pain or difficulty breathing. Patient is tolerating diet. Discussed plan of care at bedside with patient. Objective - Constitutional Vitals: Vital Signs - 12hr 08/31/19 08/31/19 08/31/19 03:55 04:41 06:35 Temperature 98.2 F 97.6 F Pulse Rate 78 79 Respiratory 19 17 14 Rate Blood Pressure 134/87 146/85 Blood Pressure [Right] O2 Sat by Pulse 94 96 Oximetry 08/31/19 08/31/19 08/31/19 08:36 08:40 08:45 Temperature 98.1 F Pulse Rate 79 78 79 Respiratory 10 L 14 13 Rate Blood Pressure 121/71 127/76 132/82 Blood Pressure [Right] O2 Sat by Pulse 96 96 97 Oximetry 08/31/19 08/31/19 08/31/19 09:00 09:15 09:55 Temperature 98.0 F 98.0 F Pulse Rate 76 74 78 Respiratory 12 12 18 Rate Blood Pressure 133/81 127/77 Blood Pressure 131/86 [Right] O2 Sat by Pulse 97 97 93 Oximetry 08/31/19 11:41 Temperature 97.6 F Pulse Rate 82 Respiratory 18 Rate Blood Pressure 124/80 Blood Pressure [Right] O2 Sat by Pulse 98 Oximetry - Labs CBC & Chem 7: 09/02/19 08:32 08/31/19 11:28 Labs: Abnormal lab results 08/30/19 08/30/19 08/31/19 Range/Units 17:00 23:35 06:01 RDW (13.2-15.2) % [place] % (Auto) (0.0-7.3) % BUN (9-20) mg/dL Creatinine (0.8-1.5) mg/dL Glucose (75-100) mg/dL POC Glucose 206 H 257 H 151 H (70-105) 08/31/19 08/31/19 08/31/19 Range/Units 09:03 11:28 11:28 RDW 16.1 H (13.2-15.2) % [place] % (Auto) 7.8 H (0.0-7.3) % BUN 7 L (9-20) mg/dL Creatinine 0.6 L (0.8-1.5) mg/dL Glucose 150 H (75-100) mg/dL POC Glucose 150 H (70-105) 11/12/19 Range/Units 11:52 RDW (13.2-15.2) % [place] % (Auto) (0.0-7.3) % BUN (9-20) mg/dL Creatinine (0.8-1.5) mg/dL Glucose (75-100) mg/dL POC Glucose 169 H (70-105)
--- NOTE | 2019-08-31 14:54 | Progress Note ---
Assessment and Plan Cultures: 08/24 blood culture - NGTD 08/24 surgical biopsy culture - Klebsiella pneumoniae 08/24 surgical culture - Klebsiella pneumoniae A/P: 54 yo m PMHx DM2, EtOH abuse, nicotine abuse admitted with gangrene of the L foot. 1. Acute sepsis secondary to L foot gangrene and abscess - No evidence of osteomyelitis on MRI. s/p I&D of left foot abscess with excision of necrotic tissue on 08/24/2019. At present would recommend treatment as abscess/necrosis/cellulitis for at least 2 week course. 2. DM2 - recommend tight glycemic control for improved wound healing. 3. Nicotine abuse - recommended cessation for improved wound healing 4. Vancomycin allergy - not true allergy per patient. Says he gets red man syndrome, resolved with Benadryl. Red man syndrome can also be avoided by infusing vancomycin at half rate. 5. Left leg DVT - avoid fluoroquinolones since patient may be d/pastora on anticoagulation. Recs: - Continue ceftriaxone 2g q24h while inpatient, plan for 10 additional days of abx from last debridement i.e. today - upon discharge, would switch to PO antibiotics (would avoid fluoroquinolones if patient is discharged on warfarin) Renée Gardner MD, FACP [facility] M: [phone] O: [phone] F: [phone] Subjective Date of service: 08/31/19 Principal diagnosis: left foot wound Interval history: No fever. Went to OR today for I&D of abscess and necrotic skin. Denies any new complaints. Objective - Exam Narrative Exam: Physical Exam: Constitutional: Alert, cooperative. No acute distress Head, Ears, Nose: Normocephalic, atraumatic. External ears, nose normal Eyes: Conjunctivae/corneas clear. No icterus. No ptosis. Neck: Supple, no meningeal signs Cardiovascular: S1, S2 normal. Respiratory: Good air entry, clear to auscultation bilaterally GI: Soft, non-tender; bowel sounds normal. No peritoneal signs Musculoskeletal: Left leg dressing + Skin: No rash or abscess Hem/Lymphatic: No palpable cervical or supraclavicular nodes. No lymphangitis Psych: Mood ok. Affect normal Neurological: Awake, alert, oriented. No gross abnormality - Constitutional Vitals: Vital Signs Temp Pulse Resp BP Pulse Ox 97.6 F 82 18 124/80 98 08/31/19 11:41 08/31/19 11:41 08/31/19 11:41 08/31/19 11:41 08/31/19 11:41 Temperature -Last 24 Hours Temperature 97.6 F Temperature 98.0 F Temperature 98.0 F Temperature 98.1 F Temperature 97.6 F Temperature 98.2 F Temperature 98.2 F Temperature 98.5 F Temperature 98.9 F Temperature 98.7 F - Labs CBC & Chem 7: 08/31/19 11:28 08/31/19 11:28 Labs: Abnormal lab results 08/30/19 08/30/19 08/31/19 Range/Units 17:00 23:35 06:01 RDW (13.2-15.2) % [place] % (Auto) (0.0-7.3) % BUN (9-20) mg/dL Creatinine (0.8-1.5) mg/dL Glucose (75-100) mg/dL POC Glucose 206 H 257 H 151 H (70-105) 08/31/19 08/31/19 08/31/19 Range/Units 09:03 11:28 11:28 RDW 16.1 H (13.2-15.2) % [place] % (Auto) 7.8 H (0.0-7.3) % BUN 7 L (9-20) mg/dL Creatinine 0.6 L (0.8-1.5) mg/dL Glucose 150 H (75-100) mg/dL POC Glucose 150 H (70-105) 08/31/19 Range/Units 11:52 RDW (13.2-15.2) % [place] % (Auto) (0.0-7.3) % BUN (9-20) mg/dL Creatinine (0.8-1.5) mg/dL Glucose (75-100) mg/dL POC Glucose 169 H (70-105)
[2019-08-31] MEDS: guaiFENesin 100 MG/5 ML ORAL LIQD PO PRN (15:26)
[2019-08-31] MEDS: diphenhydrAMINE 50 MG CAP PO PRN (15:27)
[2019-08-31] MEDS: MIRTAZAPINE 15 MG TAB PO SCH (21:17)
[2019-08-31] MEDS: ZOLPIDEM 5 MG TAB PO PRN (21:20)
[2019-09-01] MEDS: SODIUM CHLORIDE 0.9% 1000 ML 1,000 ML IV SCH (01:31)
[2019-09-01] MEDS: HEPARIN/ 0.45% NACL DRIP 25,000 UNIT/500 ML BAG IV SCH (02:28)
[2019-09-01] MEDS: oxyCODONE /ACETAMINOPHEN 5-325MG TAB PO PRN ×4 (02:47→21:59)
[2019-09-01] MEDS: SODIUM HYPOCHLORITE, DAKIN'S 1/2 STRENGTH (0.25%) 473 ML TOPICAL SOLN TP SCH ×2 (02:51→12:40)
[2019-09-01] MEDS: INSULIN LISPRO 100 UNIT/ML SUB-Q SCH ×4 (02:51→18:46)
[2019-09-01] MEDS: GABAPENTIN 300 MG CAP PO SCH ×3 (06:15→21:59)
[2019-09-01] MEDS: THIAMINE 100 MG TAB PO SCH (10:34)
[2019-09-01] MEDS: FAMOTIDINE 20 MG TAB PO SCH ×2 (10:35→21:59)
[2019-09-01] MEDS: NICOTINE 21 MG/24 HR PATCH TD SCH (10:35)
[2019-09-01] MEDS: FOLIC ACID 1 MG TAB PO SCH (10:35)
[2019-09-01] MEDS: amLODIPine 10 MG TAB PO SCH (10:35)
--- NOTE | 2019-09-01 11:30 | Progress Note ---
Assessment and Plan POD#1 s/p I&D of left leg abscess, and left foot debridement. stable, afebrile, showing clinical signs of improvement contine abx per ID no further surgical intervention planned at this time continue wound care recommendations per wound care nursing team - plan upon discharge is to get out patient wound care with hyperbaric therapy. will continue to follow Subjective Date of service: 09/01/19 Patient Reports: Positive: no new complaints (No acute events overnight. pt says his pain is a bit less than before.), pain is less Objective Vital Signs - 12hr 09/01/19 09/01/19 09/01/19 02:47 03:47 04:50 Temperature 98.5 F Pulse Rate 75 Respiratory 17 17 20 Rate Blood Pressure 134/83 Blood Pressure [Right] O2 Sat by Pulse 92 Oximetry 09/01/19 09/01/19 06:59 07:37 Temperature 98.4 F 98.1 F Pulse Rate 77 78 Respiratory 20 20 Rate Blood Pressure 143/89 Blood Pressure 143/89 [Right] O2 Sat by Pulse 94 94 Oximetry - General physical appearance well nourished, no distress - Respiratory normal expansion, normal respiratory effort - Musculoskeletal other (left leg with bandages c/d/i. less erythema evident, and less tender to manipulation) - Labs 08/31/19 11:28 08/31/19 11:28 Diabetes panel 08/31/19 Range/Units 11:28 Sodium 139 (137-145) mmol/L Potassium 4.4 D (3.6-5.0) mmol/L Chloride 102.0 (98-107) mmol/L Carbon Dioxide 23 (22-30) mmol/L BUN 7 L (9-20) mg/dL Creatinine 0.6 L (0.8-1.5) mg/dL Glucose 150 H (75-100) mg/dL Calcium 8.9 (8.4-10.2) mg/dL Calcium panel 08/31/19 Range/Units 11:28 Calcium 8.9 (8.4-10.2) mg/dL Pituitary panel 08/31/19 Range/Units 11:28 Sodium 139 (137-145) mmol/L Potassium 4.4 D (3.6-5.0) mmol/L Chloride 102.0 (98-107) mmol/L Carbon Dioxide 23 (22-30) mmol/L BUN 7 L (9-20) mg/dL Creatinine 0.6 L (0.8-1.5) mg/dL Glucose 150 H (75-100) mg/dL Calcium 8.9 (8.4-10.2) mg/dL Adrenal panel 08/31/19 Range/Units 11:28 Sodium 139 (137-145) mmol/L Potassium 4.4 D (3.6-5.0) mmol/L Chloride 102.0 (98-107) mmol/L Carbon Dioxide 23 (22-30) mmol/L BUN 7 L (9-20) mg/dL Creatinine 0.6 L (0.8-1.5) mg/dL Glucose 150 H (75-100) mg/dL Calcium 8.9 (8.4-10.2) mg/dL
--- NOTE | 2019-09-01 12:25 | Progress Note ---
Assessment and Plan Cultures: 08/24 blood culture - NGTD 08/24 surgical biopsy culture - Klebsiella pneumoniae 08/24 surgical culture - Klebsiella pneumoniae A/P: 54 yo m PMHx DM2, EtOH abuse, nicotine abuse admitted with gangrene of the L foot. 1. Acute sepsis secondary to L foot gangrene and abscess - No evidence of osteomyelitis on MRI. s/p I&D of left foot abscess with excision of necrotic tissue on 08/24/2019. At present would recommend treatment as abscess/necrosis/cellulitis for at least 2 week course. 2. DM2 - recommend tight glycemic control for improved wound healing. 3. Nicotine abuse - recommended cessation for improved wound healing 4. Vancomycin allergy - not true allergy per patient. Says he gets red man syndrome, resolved with Benadryl. Red man syndrome can also be avoided by infusing vancomycin at half rate. Currently on MRSA growth, so no need for Vancomycin therapy 5. Left leg DVT - avoid fluoroquinolones if he is d/pastora on anticoagulation with coumadin. Recs: - Continue ceftriaxone 2g q24h while inpatient, plan for 10 additional days of abx (end date: 09/10/2019) - upon discharge, would switch to PO antibiotics (would avoid fluoroquinolones if patient is discharged on warfarin) - planned for outpatient wound care with HBOT per Gen. Surg Renée Gardner MD, FACP [facility] M: [phone] O: [phone] F: [phone] Subjective Date of service: 09/01/19 Principal diagnosis: left foot wound Interval history: No fever. States his left leg pain is getting better. Eating well. Denies any new complaints. Objective - Exam Narrative Exam: Physical Exam: Constitutional: Alert, cooperative. No acute distress Head, Ears, Nose: Normocephalic, atraumatic. External ears, nose normal Eyes: Conjunctivae/corneas clear. No icterus. No ptosis. Neck: Supple, no meningeal signs Cardiovascular: S1, S2 normal. Respiratory: Good air entry, clear to auscultation bilaterally GI: Soft, non-tender; bowel sounds normal. No peritoneal signs Musculoskeletal: Left leg dressing +, edema +, mild erythema Skin: No rash or abscess Hem/Lymphatic: No palpable cervical or supraclavicular nodes. No lymphangitis Psych: Mood ok. Affect normal Neurological: Awake, alert, oriented. No gross abnormality - Constitutional Vitals: Vital Signs Temp Pulse Resp BP Pulse Ox 98.1 F 78 20 143/89 94 09/01/19 07:37 09/01/19 07:37 09/01/19 07:37 09/01/19 07:37 09/01/19 07:37 Temperature -Last 24 Hours Temperature 98.1 F Temperature 98.4 F Temperature 98.5 F Temperature 98.0 F Temperature 98.9 F Temperature 97.9 F - Labs CBC & Chem 7: 08/31/19 11:28 08/31/19 11:28 Labs: Abnormal lab results 08/31/19 08/31/19 08/31/19 Range/Units 09:03 11:28 17:15 Heparin Anti-Xa Level (0.3-0.7) U.I./ml BUN 7 L (9-20) mg/dL Creatinine 0.6 L (0.8-1.5) mg/dL Glucose 150 H (75-100) mg/dL POC Glucose 150 H 220 H (70-105) 08/31/19 08/31/19 09/01/19 Range/Units 20:33 22:22 04:31 Heparin Anti-Xa Level 0.14 L 0.27 L (0.3-0.7) U.I./ml BUN (9-20) mg/dL Creatinine (0.8-1.5) mg/dL Glucose (75-100) mg/dL POC Glucose 148 H (70-105) 09/01/19 09/01/19 Range/Units 06:47 11:28 Heparin Anti-Xa Level (0.3-0.7) U.I./ml BUN (9-20) mg/dL Creatinine (0.8-1.5) mg/dL Glucose (75-100) mg/dL POC Glucose 134 H 216 H (70-105)
[2019-09-01] MEDS: diphenhydrAMINE 50 MG CAP PO PRN (12:38)
--- NOTE | 2019-09-01 14:01 | Progress Note ---
Assessment and Plan /-Left foot abscess; Status post incision drainage on 08/24/19 with debridement of necrotic tissue cont wound care, ID following, on Rocephin, surg cultures positive Klebsiella had 2nd debridement yesterday - follow cx /Acute LE DVT: s/p Anticoagulation with heparin drip standard protocol Posterior tibial vein DVT, superficial venous thrombosis in the greater saphenous vein Discussed with vascular surgery. Place on eliquis today /Sepsis. Continue IV antibiotics. Follow-up blood cultures, wound cultures gram negative rods ,follow sensitivities Etiology secondary to LLE gangrene. /Left lower extremity abscess/gangrene. Vascular following. MRI reveals extensive abscess s/p I&D, No evidence of osteomyelitis. /H/O Lt.Great toe amputation /Diabetes mellitus type 2. Continue Accu-Cheks and sliding scale insulin. Tight glycemic control to promote wound healing. /EtOH abuse. CIWA protocol. /Severe malnutrition/hypoalbuminemia; nutrition supplements Nutrition consult /History CVA. Supportive care /-DVT prophylaxis; heparin Consultants recommendations noted and appreciated Monitor clinically and adjust management as needed Disposition; follow clinically Follow surgery and ID recommendations Discharge when medically stable Brief History 54-year-old male patient with significant history of diabetes mellitus alcohol use tobacco abuse was admitted through emergency room with foul-smelling discharge from left foot. Evaluated extensively noted to have left foot abscess evaluated by vascular and surgery underwent incision drainage and debridement ID evaluated started on empiric antibiotics, the patient also has left lower extremity DVT on heparin drip Hospitalist Physical General appearance: Present: no acute distress, well-nourished - EENT Eyes: Present: PERRL, EOM intact - Neck Neck: Present: supple, normal ROM - Respiratory Respiratory effort: normal Respiratory: negative: diminished, rales, rhonchi, wheezing - Cardiovascular Rhythm: regular Heart Sounds: Present: S1 & S2 - Extremities Extremities: abnormal (left foot dressing in place) Extremity abnormal: erythema, deformity - Abdominal General gastrointestinal: soft, non-tender, non-distended, normal bowel sounds - Integumentary Integumentary: Present: clear, warm - Psychiatric Psychiatric: appropriate mood/affect, cooperative - Neurologic Neurologic: CNII-XII intact, moves all extremities Subjective Date of service: 09/01/19 Principal diagnosis: left foot wound Interval history: Patient seen and examined. Medical records and medication list reviewed. No acute event overnight noted by the RN. Patient denies any chest pain or difficulty breathing. Patient is tolerating diet. Discussed plan of care at bedside with patient. Objective - Constitutional Vitals: Vital Signs - 12hr 09/01/19 09/01/19 09/01/19 02:47 03:47 04:50 Temperature 98.5 F Pulse Rate 75 Respiratory 17 17 20 Rate Blood Pressure 134/83 Blood Pressure [Right] O2 Sat by Pulse 92 Oximetry 09/01/19 09/01/19 09/01/19 06:59 07:37 11:09 Temperature 98.4 F 98.1 F 98.0 F Pulse Rate 77 78 77 Respiratory 20 20 20 Rate Blood Pressure 143/89 136/87 Blood Pressure 143/89 [Right] O2 Sat by Pulse 94 94 96 Oximetry - Labs CBC & Chem 7: 09/02/19 08:32 08/31/19 11:28 Labs: Abnormal lab results 08/31/19 08/31/19 08/31/19 Range/Units 17:15 20:33 22:22 Heparin Anti-Xa Level 0.14 L (0.3-0.7) U.I./ml POC Glucose 220 H 148 H (70-105) 09/01/19 09/01/19 09/01/19 Range/Units 04:31 06:47 11:28 Heparin Anti-Xa Level 0.27 L (0.3-0.7) U.I./ml POC Glucose 134 H 216 H (70-105)
[2019-09-01] MEDS: cefTRIAXone/NS 2 GM/100 ML 2 GM/100 ML BAG IV SCH (14:11)
[2019-09-01] MEDS: MORPHINE 2 MG/1 ML INJ IV PRN (16:10)
[2019-09-01] MEDS: APIXABAN 5 MG TAB PO SCH (21:58)
[2019-09-01] MEDS: MIRTAZAPINE 15 MG TAB PO SCH (21:59)
[2019-09-02] MEDS: oxyCODONE /ACETAMINOPHEN 5-325MG TAB PO PRN ×3 (02:09→16:03)
[2019-09-02] MEDS: INSULIN LISPRO 100 UNIT/ML SUB-Q SCH ×5 (02:11→22:35)
[2019-09-02] MEDS: diphenhydrAMINE 50 MG CAP PO PRN (02:16)
[2019-09-02] MEDS: GABAPENTIN 300 MG CAP PO SCH ×3 (06:03→21:33)
[2019-09-02] MEDS: SODIUM HYPOCHLORITE, DAKIN'S 1/2 STRENGTH (0.25%) 473 ML TOPICAL SOLN TP SCH ×3 (06:04→21:34)
[2019-09-02 09:22] LABS: Hematocrit 42.7 % (35.5-45.6); Hemoglobin 14.4 gm/dl (11.8-15.2)
[2019-09-02] MEDS: FOLIC ACID 1 MG TAB PO SCH (09:56)
[2019-09-02] MEDS: FAMOTIDINE 20 MG TAB PO SCH ×2 (09:56→21:33)
[2019-09-02] MEDS: NICOTINE 21 MG/24 HR PATCH TD SCH (09:56)
[2019-09-02] MEDS: APIXABAN 5 MG TAB PO SCH ×2 (09:57→21:33)
[2019-09-02] MEDS: amLODIPine 10 MG TAB PO SCH (09:58)
[2019-09-02] MEDS: THIAMINE 100 MG TAB PO SCH (09:58)
[2019-09-02] MEDS: MORPHINE 2 MG/1 ML INJ IV PRN ×2 (10:48→20:48)
--- NOTE | 2019-09-02 11:58 | Progress Note ---
Assessment and Plan Cultures: 08/24 blood culture - NGTD 08/24 surgical biopsy culture - Klebsiella pneumoniae 08/24 surgical culture - Klebsiella pneumoniae A/P: 54 yo m PMHx DM2, EtOH abuse, nicotine abuse admitted with gangrene of the L foot. 1. Acute sepsis secondary to L foot gangrene and abscess - No evidence of osteomyelitis on MRI. s/p I&D of left foot abscess with excision of necrotic tissue on 08/24/2019. At present would recommend treatment as abscess/necrosis/cellulitis for at least 2 week course. 2. DM2 - recommend tight glycemic control for improved wound healing. 3. Nicotine abuse - recommended cessation for improved wound healing 4. Vancomycin allergy - not true allergy per patient. Says he gets red man syndrome, resolved with Benadryl. Red man syndrome can also be avoided by infusing vancomycin at half rate. Currently on MRSA growth, so no need for Vancomycin therapy 5. Left leg DVT - avoid fluoroquinolones if he is d/pastora on anticoagulation with coumadin. Recs: - Continue ceftriaxone 2g q24h while inpatient, plan for 10 additional days of abx (end date: 09/10/2019) - upon discharge, would switch to PO levofloxacin 750 mg once daily till 09/10/2019 - planned for outpatient wound care with HBOT per Gen. Surg - ID clinic follow up Renée Gardner MD, FACP [facility] M: [phone] O: [phone] F: [phone] Subjective Date of service: 09/02/19 Principal diagnosis: left foot wound Interval history: Denies any fever. Left leg pain is controlled. Has been eating well. Hoping to get discharged soon. Objective - Exam Narrative Exam: Physical Exam: Constitutional: Alert, cooperative. No acute distress Head, Ears, Nose: Normocephalic, atraumatic. External ears, nose normal Eyes: Conjunctivae/corneas clear. No icterus. No ptosis. Neck: Supple, no meningeal signs Cardiovascular: S1, S2 normal. Respiratory: Good air entry, clear to auscultation bilaterally GI: Soft, non-tender; bowel sounds normal. No peritoneal signs Musculoskeletal: Left leg dressing +, improving swelling and erythema Skin: No rash or abscess Hem/Lymphatic: No palpable cervical or supraclavicular nodes. No lymphangitis Psych: Mood ok. Affect normal Neurological: Awake, alert, oriented. No gross abnormality - Constitutional Vitals: Vital Signs Temp Pulse Resp BP Pulse Ox 98.5 F 80 16 137/84 94 09/02/19 07:40 09/02/19 09:58 09/02/19 07:40 09/02/19 09:58 09/02/19 07:40 Temperature -Last 24 Hours Temperature 98.5 F Temperature 98.5 F Temperature 97.4 F Temperature 97.4 F Temperature 97.5 F Temperature 97.9 F Temperature 98.0 F - Labs CBC & Chem 7: 09/02/19 08:32 08/31/19 11:28 Labs: Abnormal lab results 08/22/19 09/01/19 09/01/19 Range/Units 18:16 11:28 17:53 POC Glucose 251 H 216 H 158 H (70-105) 09/01/19 09/02/19 09/02/19 Range/Units 22:13 07:30 11:23 POC Glucose 272 H 126 H 251 H (70-105)
[2019-09-02] MEDS: cefTRIAXone/NS 2 GM/100 ML 2 GM/100 ML BAG IV SCH (14:24)
--- NOTE | 2019-09-02 14:55 | Progress Note ---
Assessment and Plan s/p I&D of left foot and calf abscess. on antibiotics and showing signs of clinical improvement. continue abx per ID recommendations. continue dressing changes and out patient wound care per wound care nursing team. optimize glucose control. Subjective Date of service: 09/02/19 Patient Reports: Positive: no new complaints (no acute events over night), pain is less Objective Vital Signs - 12hr 09/02/19 09/02/19 09/02/19 04:59 07:00 07:40 Temperature 97.4 F L 98.5 F 98.5 F Pulse Rate 78 78 78 Respiratory 17 16 16 Rate Blood Pressure Blood Pressure 141/86 137/84 137/84 [Right] O2 Sat by Pulse 93 94 94 Oximetry 09/02/19 09/02/19 09:58 11:11 Temperature 97.6 F Pulse Rate 80 80 Respiratory 18 Rate Blood Pressure 137/84 147/90 Blood Pressure [Right] O2 Sat by Pulse 95 Oximetry - General physical appearance well developed, no distress - Musculoskeletal other (foot wound bed is clean with granulation tissue, no drainage or odor. less erythema and edema. wound on leg clean , less tender to manipulation) - Labs 09/02/19 08:32 08/31/19 11:28
--- NOTE | 2019-09-02 15:13 | Progress Note ---
Assessment and Plan /-Left foot abscess; Status post incision drainage on 08/24/19 with debridement of necrotic tissue cont wound care, ID following, on Rocephin, surg cultures positive Klebsiella had 2nd debridement 08/31/19 - follow cx PT recommended wheelchair and offloading shoe on discharge - CM consulted to arrange /Acute LE DVT: s/p Anticoagulation with heparin drip standard protocol Posterior tibial vein DVT, superficial venous thrombosis in the greater saphenous vein Discussed with vascular surgery. Place on eliquis today /Sepsis. Continue IV antibiotics. Follow-up blood cultures, wound cultures gram negative rods ,follow sensitivities Etiology secondary to LLE gangrene. /Left lower extremity abscess/gangrene. Vascular following. MRI reveals extensive abscess s/p I&D, No evidence of osteomyelitis. /H/O Lt.Great toe amputation /Diabetes mellitus type 2. Continue Accu-Cheks and sliding scale insulin. Tight glycemic control to promote wound healing. /EtOH abuse. CIWA protocol. /Severe malnutrition/hypoalbuminemia; nutrition supplements Nutrition consult /History CVA. Supportive care /-DVT prophylaxis; heparin Consultants recommendations noted and appreciated Monitor clinically and adjust management as needed Disposition; follow clinically Follow surgery and ID recommendations Discharge when medically stable Brief History 54-year-old male patient with significant history of diabetes mellitus alcohol use tobacco abuse was admitted through emergency room with foul-smelling discharge from left foot. Evaluated extensively noted to have left foot abscess evaluated by vascular and surgery underwent incision drainage and debridement ID evaluated started on empiric antibiotics, the patient also has left lower extremity DVT on heparin drip Hospitalist Physical General appearance: Present: no acute distress, well-nourished - EENT Eyes: Present: PERRL, EOM intact - Neck Neck: Present: supple, normal ROM - Respiratory Respiratory effort: normal Respiratory: negative: diminished, rales, rhonchi, wheezing - Cardiovascular Rhythm: regular Heart Sounds: Present: S1 & S2 - Extremities Extremities: abnormal (left foot dressing in place) Extremity abnormal: erythema, deformity - Abdominal General gastrointestinal: soft, non-tender, non-distended, normal bowel sounds - Integumentary Integumentary: Present: clear, warm - Psychiatric Psychiatric: appropriate mood/affect, cooperative - Neurologic Neurologic: CNII-XII intact, moves all extremities Subjective Date of service: 09/02/19 Principal diagnosis: left foot wound Interval history: Patient seen and examined. Medical records and medication list reviewed. No acute event overnight noted by the RN. Patient denies any chest pain or difficulty breathing. Patient is tolerating diet. Discussed plan of care at bedside with patient. Objective - Constitutional Vitals: Vital Signs - 12hr 09/02/19 09/02/19 09/02/19 04:59 07:00 07:40 Temperature 97.4 F L 98.5 F 98.5 F Pulse Rate 78 78 78 Respiratory 17 16 16 Rate Blood Pressure Blood Pressure 141/86 137/84 137/84 [Right] O2 Sat by Pulse 93 94 94 Oximetry 09/02/19 09/02/19 09:58 11:11 Temperature 97.6 F Pulse Rate 80 80 Respiratory 18 Rate Blood Pressure 137/84 147/90 Blood Pressure [Right] O2 Sat by Pulse 95 Oximetry - Labs CBC & Chem 7: 09/02/19 08:32 08/31/19 11:28 Labs: Abnormal lab results 08/22/19 09/01/19 09/01/19 Range/Units 18:16 17:53 22:13 POC Glucose 251 H 158 H 272 H (70-105) 09/02/19 09/02/19 Range/Units 07:30 11:23 POC Glucose 126 H 251 H (70-105)
[2019-09-02] MEDS: MIRTAZAPINE 15 MG TAB PO SCH (21:33)
[2019-09-03] MEDS: oxyCODONE /ACETAMINOPHEN 5-325MG TAB PO PRN ×4 (01:00→15:56)
[2019-09-03] MEDS: ZOLPIDEM 5 MG TAB PO PRN (01:00)
[2019-09-03] MEDS: GABAPENTIN 300 MG CAP PO SCH ×2 (05:57→14:04)
[2019-09-03] MEDS: amLODIPine 10 MG TAB PO SCH (09:04)
[2019-09-03] MEDS: APIXABAN 5 MG TAB PO SCH (09:04)
[2019-09-03] MEDS: FAMOTIDINE 20 MG TAB PO SCH (09:05)
[2019-09-03] MEDS: FOLIC ACID 1 MG TAB PO SCH (09:06)
[2019-09-03] MEDS: NICOTINE 21 MG/24 HR PATCH TD SCH (09:06)
[2019-09-03] MEDS: THIAMINE 100 MG TAB PO SCH (09:06)
[2019-09-03] MEDS: SODIUM HYPOCHLORITE, DAKIN'S 1/2 STRENGTH (0.25%) 473 ML TOPICAL SOLN TP SCH (09:07)
[2019-09-03] MEDS: MORPHINE 2 MG/1 ML INJ IV PRN (10:57)
[2019-09-03] MEDS: INSULIN LISPRO 100 UNIT/ML SUB-Q SCH ×3 (12:08→16:38)
--- NOTE | 2019-09-03 13:28 | Progress Note ---
Assessment and Plan Cultures: 08/24 blood culture - NGTD 08/24 surgical biopsy culture - Klebsiella pneumoniae 08/24 surgical culture - Klebsiella pneumoniae A/P: 54 yo m PMHx DM2, EtOH abuse, nicotine abuse admitted with gangrene of the L foot. 1. Acute sepsis secondary to L foot gangrene and abscess - No evidence of osteomyelitis on MRI. s/p I&D of left foot abscess with excision of necrotic tissue on 08/24/2019 and on 08/31/2019. Wound appears to be healing well. 2. DM2 - recommend tight glycemic control for improved wound healing. 3. Nicotine abuse - recommended cessation for improved wound healing 4. Vancomycin allergy - not true allergy per patient. Says he gets red man syndrome, resolved with Benadryl. Red man syndrome can also be avoided by infusing vancomycin at half rate. Currently on MRSA growth, so no need for Vancomycin therapy 5. Left leg DVT - avoid fluoroquinolones if he is d/pastora on anticoagulation with coumadin. Recs: - upon discharge, would switch to PO levofloxacin 750 mg once daily till 09/10/2019 (10 additional days from last debridement) - continue outpatient wound care - ID clinic follow up (master scheduler notified) Renée Gardner MD, FACP [facility] ([facility] M: [phone] O: [phone] F: [phone] Subjective Date of service: 09/03/19 Principal diagnosis: left foot wound Interval history: No fever. Left leg wounds healing well. No nausea, vomiting. Objective - Exam Narrative Exam: Physical Exam: Constitutional: Alert, cooperative. No acute distress Head, Ears, Nose: Normocephalic, atraumatic. External ears, nose normal Eyes: Conjunctivae/corneas clear. No icterus. No ptosis. Neck: Supple, no meningeal signs Cardiovascular: S1, S2 normal. Respiratory: Good air entry, clear to auscultation bilaterally GI: Soft, non-tender; bowel sounds normal. No peritoneal signs Musculoskeletal: Left leg dressing +, mild swelling and erythema Skin: No rash or abscess Hem/Lymphatic: No palpable cervical or supraclavicular nodes. No lymphangitis Psych: Mood ok. Affect normal Neurological: Awake, alert, oriented. No gross abnormality - Constitutional Vitals: Vital Signs Temp Pulse Resp BP Pulse Ox 98.9 F 83 22 136/92 97 09/03/19 11:25 09/03/19 11:25 09/03/19 11:25 09/03/19 11:25 09/03/19 11:25 Temperature -Last 24 Hours Temperature 98.9 F Temperature 98.0 F Temperature 98.1 F Temperature 98.2 F Temperature 98.0 F Temperature 97.3 F Temperature 97.3 F - Labs CBC & Chem 7: 09/02/19 08:32 08/31/19 11:28 Labs: Abnormal lab results 09/02/19 09/02/19 09/03/19 Range/Units 16:57 21:39 07:10 POC Glucose 182 H 213 H 208 H (70-105) 09/03/19 Range/Units 11:33 POC Glucose 261 H (70-105)
[2019-09-03] MEDS: cefTRIAXone/NS 2 GM/100 ML 2 GM/100 ML BAG IV SCH (14:06)
--- NOTE | 2019-09-03 15:57 | Discharge Summary ---
Providers - Providers Date of Admission: 08/22/19 17:02 Date of discharge: 09/03/19 Attending physician: LUIS MIGUEL TUTTLE 08/24/19 18:11 Consult to Physician [CONS] Routine Comment: Consulting Provider: KVNG CALLE Physician Instructions: Reason For Exam: Abscess foot/positive wound cult 08/24/19 18:15 Consult to Wound/ET Nurse [CONS] Routine Reason For Exam: wound eval 08/25/19 09:06 Consult to Physician [CONS] Routine Comment: Consulting Provider: BOWEN REINA Physician Instructions: please eval for appropriate antibiotic treatment Reason For Exam: left foot abscess 09/01/19 14:01 Physical Therapy Evaluation and Treat [CONS] Routine Comment: Reason For Exam: placement 09/02/19 13:27 Physical Therapy Evaluation and Treat [CONS] Routine Comment: off-loading off abbi forefoot Reason For Exam: difficulty in ambulation Primary care physician: [employer] Hospitalization Condition: Stable Pertinent studies: LE MRI LE venous doppler Foot XRY Hospital course: 54-year-old male patient with significant history of diabetes mellitus alcohol use tobacco abuse was admitted through emergency room with foul-smelling discharge from left foot. Evaluated extensively noted to have left foot abscess evaluated by vascular and surgery underwent incision drainage and debridement x2, ID evaluated started on empiric antibiotics, the patient also found to have left lower extremity DVT, placed on heparin drip. He was placed on eliquis before discharge. Patient was then discharged home in stable condition. Discharge diagnosis and management: /-Left foot abscess; Status post incision drainage on 08/24/19 with debridement of necrotic tissue orovided wound care, ID consulted, placed on Rocephin iv, surg cultures positive Klebsiella had 2nd debridement 08/31/19 - follow cx PT recommended wheelchair and offloading shoe on discharge - CM consulted to arrange will do further f/u at wound care clinic /Acute LE DVT: s/p Anticoagulation with heparin drip standard protocol Posterior tibial vein DVT, superficial venous thrombosis in the greater saphenous vein Discussed with vascular surgery. Placed on eliquis and will continue as outpt /Sepsis. due to LE gangrene Acute sepsis secondary to L foot gangrene and abscess - No evidence of osteomyelitis on MRI. s/p I&D of left foot abscess with excision of necrotic tissue on 08/24/2019 and on 08/31/2019. Wound appears to be healing well. upon discharge, switched to PO levofloxacin 750 mg once daily till 09/10/2019 (10 additional days from last debridement) /Left lower extremity abscess/gangrene. MRI reveals extensive abscess s/p I&D, No evidence of osteomyelitis. will cont abx and local wound care /H/O Lt.Great toe amputation /Diabetes mellitus type 2. Continue Accu-Cheks and sliding scale insulin. counselled for Tight glycemic control to promote wound healing. /EtOH abuse. CIWA protocol. /Severe malnutrition/hypoalbuminemia; nutrition supplements Nutrition consult /History CVA. Supportive care /-DVT prophylaxis; heparin Disposition; home with HH and outpt wound care Hospitalist Physical General appearance: Present: no acute distress, well-nourished - EENT Eyes: Present: PERRL, EOM intact - Neck Neck: Present: supple, normal ROM - Respiratory Respiratory effort: normal Respiratory: negative: diminished, rales, rhonchi, wheezing - Cardiovascular Rhythm: regular Heart Sounds: Present: S1 & S2 - Extremities Extremities: abnormal (left foot dressing in place) Extremity abnormal: erythema, deformity - Abdominal General gastrointestinal: soft, non-tender, non-distended, normal bowel sounds - Integumentary Integumentary: Present: clear, warm - Psychiatric Psychiatric: appropriate mood/affect, cooperative - Neurologic Neurologic: CNII-XII intact, moves all extremities Disposition: [id number] [facility] Time spent for discharge: 34 minutes Core Measure Documentation - Palliative Care Palliative Care/ Comfort Measures: Not Applicable - Core Measures Any of the following diagnoses?: none Exam - Constitutional Vitals: Temp Pulse Resp BP Pulse Ox 98.9 F 83 22 136/92 97 09/03/19 11:25 09/03/19 11:25 09/03/19 11:25 09/03/19 11:25 09/03/19 11:25 Plan Activity: fall precautions Weight Bearing Status: Non-Weight Bearing Diet: diabetic Wound: keep clean and dry, per your surgeon's advice Special Instructions: record blood sugar diary, smoking cessation Durable Medical Equipment Needed Upon Discharge: Wheelchair, other ([employer] offloading shoe) Follow up with: CATIE FIGUEREDO MD [Primary Care Provider] - 3-5 Days MANOLO HDZ MD [Staff Physician] - 7 Days Prescriptions: Apixaban [Eliquis] 5 mg PO Q12HR #60 tablet Gabapentin 300 mg PO Q8HR #90 capsule levoFLOXacin [Levaquin] 750 mg PO QDAY #8 tablet oxyCODONE /ACETAMINOPHEN [Percocet 5/325 mg] 1 tab PO Q4H PRN #14 tablet PRN Reason: Pain, Moderate (4-6)
[2019-09-03 16:50] VITALS: BP 121/83
[2019-09-08] MEDS ORDERED: APIXABAN 5 MG TAB PO SCH (22:00)
== END 2019-09-03 18:41 | disposition home health service (06) | DRG 853 ==
LOC: ED 12:50 → 3B-SURG 17:02
PROVIDERS: ADMIT Internal Medicine; ATTEND Internal Medicine
PROC: 0JBR0ZZ Excision of Left Foot Subcutaneous Tissue and Fascia, Open Approach (ICD-10-PCS; 2019-08-24)
PROC: 0JBR0ZZ Excision of Left Foot Subcutaneous Tissue and Fascia, Open Approach (ICD-10-PCS; principal; 2019-08-31)
PROC: 0Y9J0ZZ Drainage of Left Lower Leg, Open Approach (ICD-10-PCS; 2019-08-31)
DX: A41.9 Sepsis, unspecified organism (principal); E43 Unspecified severe protein-calorie malnutrition; I96 Gangrene, not elsewhere classified; E11.52 Type 2 diabetes mellitus with diabetic peripheral angiopathy with gangrene; E87.2 Acidosis; L02.416 Cutaneous abscess of left lower limb; F10.20 Alcohol dependence, uncomplicated; D69.6 Thrombocytopenia, unspecified; E11.65 Type 2 diabetes mellitus with hyperglycemia; L03.116 Cellulitis of left lower limb; I82.442 Acute embolism and thrombosis of left tibial vein; I82.812 Embolism and thrombosis of superficial veins of left lower extremity; E11.621 Type 2 diabetes mellitus with foot ulcer; Y90.9 Presence of alcohol in blood, level not specified; L97.429 Non-pressure chronic ulcer of left heel and midfoot with unspecified severity; F17.200 Nicotine dependence, unspecified, uncomplicated; L97.519 Non-pressure chronic ulcer of other part of right foot with unspecified severity; I69.354 Hemiplegia and hemiparesis following cerebral infarction affecting left non-dominant side; Z82.49 Family history of ischemic heart disease and other diseases of the circulatory system; Z83.3 Family history of diabetes mellitus; Z88.1 Allergy status to other antibiotic agents; Z79.899 Other long term (current) drug therapy; Z79.84 Long term (current) use of oral hypoglycemic drugs; Z89.412 Acquired absence of left great toe; Z71.6 Tobacco abuse counseling
CPT/HCPCS: 36415; 80048; 80053; 80202; 81001; 82140; 82805; 82962; 85007; 85014; 85018; 85025; 85027; 85049; 85520; 85610; 85730; 87040; 87075; 87076; 87116; 87186; 93922; 94760; 96365; G0378; A6260; A9577; J0696; J1170; J1200; J1644; J1815; J2060; J2250; J2270; J2370; J2405; J2543; J2704; J3010; J3370; J7030; J7040; J7050; J7120

== ENCOUNTER 2019-09-09 08:11 | Outpatient (CLI) | payer MEDICAID ==
[2019-09-09] MEDS ORDERED: LIDOCAINE (4%) 40 MG/ML TOPICAL SOLN 50 ML BOTTLE TP ONE (09:00)
== END 2019-09-09 08:12 | disposition home or self-care (01) ==
LOC: WOUND 08:11
PROVIDERS: ATTEND Surgery
DX: E11.621 Type 2 diabetes mellitus with foot ulcer (principal); L97.522 Non-pressure chronic ulcer of other part of left foot with fat layer exposed; L97.512 Non-pressure chronic ulcer of other part of right foot with fat layer exposed; I10 Essential (primary) hypertension; E78.00 Pure hypercholesterolemia, unspecified; F17.200 Nicotine dependence, unspecified, uncomplicated
CPT/HCPCS: 11042; 11045; G0463; 99214

== ENCOUNTER 2019-09-15 10:22 | Outpatient (CLI) | payer MEDICAID ==
[2019-09-15] MEDS ORDERED: LIDOCAINE (4%) 40 MG/ML TOPICAL SOLN 50 ML BOTTLE TP ONE (11:00)
== END 2019-09-15 10:23 | disposition home or self-care (01) ==
LOC: WOUND 10:22
PROVIDERS: ATTEND Surgery
DX: E11.621 Type 2 diabetes mellitus with foot ulcer (principal); L97.522 Non-pressure chronic ulcer of other part of left foot with fat layer exposed; L97.512 Non-pressure chronic ulcer of other part of right foot with fat layer exposed; I10 Essential (primary) hypertension; E78.00 Pure hypercholesterolemia, unspecified; F17.200 Nicotine dependence, unspecified, uncomplicated
CPT/HCPCS: 36415; 82962; 83036; 85014; 85018

== ENCOUNTER 2019-09-15 12:53 | Outpatient (CLI) | payer MEDICAID ==
[2019-09-15 13:39] LABS: Hematocrit 47.6 % (35.5-45.6)
== END 2019-09-15 12:54 | disposition home or self-care (01) ==
LOC: LAB 12:53
PROVIDERS: ATTEND Surgery
DX: E11.621 Type 2 diabetes mellitus with foot ulcer (principal); I10 Essential (primary) hypertension; F17.200 Nicotine dependence, unspecified, uncomplicated; F12.90 Cannabis use, unspecified, uncomplicated
CPT/HCPCS: 36415; 83036; 85014; 85018

== ENCOUNTER 2020-02-26 12:44 | Inpatient (IN) | payer MEDICAID ==
[2020-02-26] MEDS ORDERED: VANCOMYCIN/NS 1 GM/250 ML 1 GM/250 ML BAG IV ONE (14:10)
[2020-02-26] MEDS ORDERED: PIPERACILLIN/TAZOBACTAM 3.375 3.375 GM/50 ML BAG IV ONE (14:16)
[2020-02-26 14:31] LABS: Basophils % (Auto) 0.6 % (0.0-1.8); Eosinophils # (Auto) 0.2 K/mm3 (0.0-0.4); Eosinophils % (Auto) 2.2 % (0.0-4.3); Hemoglobin 16.2 gm/dl (11.8-15.2); Lymphocytes # (Auto) 1.4 K/mm3 (1.2-5.4); Lymphocytes % (Auto) 18.4 % (13.4-35.0); Mean Corpuscular HGB Conc 35 % (32-34); Mean Corpuscular Volume 91 fl (84-94); Monocytes # (Auto) 0.8 K/mm3 (0.0-0.8); Monocytes % (Auto) 10.1 % (0.0-7.3); Platelet Count 236 K/mm3 (140-440); Red Blood Count 5.15 M/mm3 (3.65-5.03); Red Cell Distribution Width 15.1 % (13.2-15.2)
[2020-02-26] MEDS ORDERED: MORPHINE 4 MG/1 ML INJ IV ONE (14:37)
[2020-02-26] MEDS ORDERED: ONDANSETRON 4 MG/2 ML INJ IV ONE (14:38)
--- NOTE | 2020-02-26 14:41 | Emergency Department Report ---
ED General Adult HPI - General Chief complaint: Extremity Injury, Lower Stated complaint: FOOT Pain Time Seen by Provider: 02/26/20 14:04 Source: patient Mode of arrival: Ambulatory Limitations: No Limitations - History of Present Illness Initial comments: Patient is 54 years old male with history of diabetes and previous left foot infection that required I&D by surgeon Dr. Matute. Patient presented to the ER complaining of left foot swelling and greenish discharge for the last 3 nights. Patient stated that he was doing well until 3 days ago. Patient currently denying any fever, nausea or vomiting. Patient has been evaluated last August by vascular surgeon and advised that patient does not require any intervention as the patient have good circulation. - Related Data Previous Rx's Medication Instructions Recorded Last Taken Type Famotidine [Pepcid] 20 mg PO BID #28 tablet 05/18/18 08/21/19 21:00 Rx Folic Acid [Folvite] 1 mg PO QDAY #30 tablet 05/18/18 08/17/19 Rx Mirtazapine [Remeron 15mg TAB] 15 mg PO QHS #30 tablet 05/18/18 08/22/19 21:00 Rx Thiamine [Vitamin B-1] 100 mg PO QDAY #30 tablet 05/18/18 08/17/19 Rx amLODIPine 10 mg PO QDAY #30 tablet 05/18/18 08/21/19 21:00 Rx metFORMIN [Glucophage] 500 mg PO BID #60 tablet 05/18/18 08/21/19 21:00 Rx Apixaban [Eliquis] 5 mg PO Q12HR #60 tablet 09/03/19 Unknown Rx Gabapentin 300 mg PO Q8HR #90 capsule 09/03/19 Unknown Rx levoFLOXacin [Levaquin] 750 mg PO QDAY #8 tablet 09/03/19 Unknown Rx oxyCODONE /ACETAMINOPHEN [Percocet 1 tab PO Q4H PRN #14 tablet 09/03/19 Unknown Rx 5/325 mg] Allergies Allergy/AdvReac Type Severity Reaction Status Date / Time vancomycin Allergy Rash Verified 02/26/20 14:12 ED Review of Systems ROS: Stated complaint: FOOT Pain Other details as noted in HPI Comment: All other systems reviewed and negative Constitutional: denies: chills, fever ENT: denies: congestion Respiratory: denies: cough, shortness of breath, SOB with exertion Cardiovascular: denies: chest pain, palpitations Gastrointestinal: denies: abdominal pain, nausea, vomiting Musculoskeletal: denies: back pain Neurological: denies: headache, weakness ED Past Medical Hx - Past Medical History Previous Medical History?: Yes Hx Hypertension: Yes Hx CVA: Yes Hx Heart Attack/AMI: No Hx Congestive Heart Failure: No Hx Diabetes: Yes Hx Pulmonary Embolism: No Hx Liver Disease: No Hx Renal Disease: No Hx Sickle Cell Disease: No Hx Arthritis: No Hx Kidney Stones: No Hx Psychiatric Treatment: Yes (ETOH) Hx Asthma: No Hx COPD: No Hx Tuberculosis: No Hx Dementia: No Hx HIV: No - Surgical History Past Surgical History?: Yes Hx Coronary Stent: No Hx Open Heart Surgery: No Hx Pacemaker: No Hx Appendectomy: No Hx Breast Surgery: No Additional Surgical History: LT GRT TOE AMPUTATED - Social History Smoking Status: Current Every Day Smoker Substance Use Type: Alcohol, Prescribed - Medications Home Medications: Home Medications Medication Instructions Recorded Confirmed Last Taken Type Famotidine [Pepcid] 20 mg PO BID #28 tablet 05/18/18 08/23/19 08/21/19 21:00 Rx Folic Acid [Folvite] 1 mg PO QDAY #30 tablet 05/18/18 08/24/19 08/17/19 Rx Mirtazapine [Remeron 15mg TAB] 15 mg PO QHS #30 tablet 05/18/18 08/23/19 08/22/19 21:00 Rx Thiamine [Vitamin B-1] 100 mg PO QDAY #30 tablet 05/18/18 08/24/19 08/17/19 Rx amLODIPine 10 mg PO QDAY #30 tablet 05/18/18 08/23/19 08/21/19 21:00 Rx metFORMIN [Glucophage] 500 mg PO BID #60 tablet 05/18/18 08/23/19 08/21/19 21:00 Rx Apixaban [Eliquis] 5 mg PO Q12HR #60 tablet 09/03/19 Unknown Rx Gabapentin 300 mg PO Q8HR #90 capsule 09/03/19 Unknown Rx levoFLOXacin [Levaquin] 750 mg PO QDAY #8 tablet 09/03/19 Unknown Rx oxyCODONE /ACETAMINOPHEN [Percocet 1 tab PO Q4H PRN #14 tablet 09/03/19 Unknown Rx 5/325 mg] ED Physical Exam - General Limitations: No Limitations General appearance: alert, in no apparent distress - Head Head exam: Present: atraumatic, normocephalic, normal inspection - Eye Eye exam: Present: normal appearance - ENT ENT exam: Present: normal exam, normal orophraynx, mucous membranes moist - Neck Neck exam: Present: normal inspection, full ROM. Absent: tenderness, meningismus - Respiratory Respiratory exam: Present: normal lung sounds bilaterally - Cardiovascular Cardiovascular Exam: Present: regular rate, normal rhythm, normal heart sounds - GI/Abdominal GI/Abdominal exam: Present: soft, normal bowel sounds. Absent: distended, tenderness, guarding, rebound, rigid, mass, bruit, pulsatile mass, hernia - Extremities Exam Extremities exam: Present: normal capillary refill, other (Left foot with significant swelling, tenderness and greenish discharge. There is obvious necrotic tissue.). Absent: pedal edema, calf tenderness - Back Exam Back exam: Present: normal inspection, full ROM. Absent: CVA tenderness (R), CVA tenderness (L) - Neurological Exam Neurological exam: Present: alert, oriented X3, CN II-XII intact ED Course Vital Signs 02/26/20 02/26/20 02/26/20 12:47 14:50 15:00 Temperature 98.1 F Pulse Rate 104 H 98 H 100 H Respiratory 16 15 15 Rate Blood Pressure 149/96 159/91 O2 Sat by Pulse 96 95 94 Oximetry 02/26/20 16:16 Temperature Pulse Rate 102 H Respiratory 16 Rate Blood Pressure 126/77 O2 Sat by Pulse 93 Oximetry ED Medical Decision Making - Lab Data Result diagrams: 02/26/20 14:12 02/26/20 14:12 - Radiology Data Radiology results: report reviewed - Medical Decision Making Patient is 54 years old male with history of diabetes and previous left foot infection that required I&D by surgeon Dr. Matute. Patient presented to the ER complaining of left foot swelling and greenish discharge for the last 3 nights. Patient stated that he was doing well until 3 days ago. Patient currently denying any fever, nausea or vomiting. Patient has been evaluated last August by vascular surgeon and advised that patient does not require any intervention as the patient have good circulation. Labs reviewed and showed elevated blood glucose. Left arterial duplex showed monophasic waves in several lower extremity arteries. I discussed the patient with Dr. Matute, surgeon composite bond technician. Dr. Matute advised to admit the patient to the hospital and will follow up with the patient in the morning. I discussed the patient with Dr. Rebolledo, he agreed to admit the patient to the hospital for further management. Critical Care Time: Yes Critical care time in (mins) excluding proc time.: 30 Critical care attestation.: If time is entered above; I have spent that time in minutes in the direct care of this critically ill patient, excluding procedure time. ED Disposition Clinical Impression: Gangrene of left foot, Diabetic foot infection Disposition: OP ADMIT IP TO THIS HOSP Is pt being admited?: Yes Condition: Stable Instructions: Diabetes Mellitus Type 2 in Adults (ED) Referrals: TRINA VENEGAS MD [Primary Care Provider] - 3-5 Days
[2020-02-26 14:47] LABS: Alanine Aminotransferase 23 units/L (7-56); Albumin 3.5 g/dL (3.9-5); BUN/Creatinine Ratio 14; Blood Urea Nitrogen 10 mg/dL (9-20); Calcium 9.8 mg/dL (8.4-10.2); Hemolysis Index 6
[2020-02-26 14:54] LABS: Bilirubin,Direct < 0.2 mg/dL (0-0.2)
--- NOTE | 2020-02-26 15:10 | XRay Report ---
LEFT FOOT 4 VIEWS INDICATION: Left foot swelling and possible abscess.. COMPARISON: 08/22/2019 FINDINGS: There is significant soft tissue swelling in the medial forefoot at the site of prior amputation of t he first ray. There is a trace amount of soft tissue gas in this region. There is no radiographic evidence of acute osteomyelitis, no cortical destruction is seen. Degenerati ve changes are again noted. IMPRESSION: 1. Soft tissue swelling in the medial forefoot with trace soft tissue gas that appears relatively sup erficial. 2. No radiographic evidence of acute osteomyelitis. Signer Name: Hector Pedroza MD Signed: 02/26/2020 3:06 PM Workstation Name: [id number]
--- NOTE | 2020-02-26 16:14 | Vascular Lab Report ---
DUPLEX DOPPLER LOWER EXTREMITY ARTERIAL, LEFT INDICATION: FOOT INFECTION. TECHNIQUE: Arterial duplex examination of the left lower extremity performed using B-mode, color flow and spectr al Doppler assessment. FINDINGS: LEFT: Common Femoral Artery: PSV 113 cm/sec. Biphasic waveform. Proximal SFA: PSV 141 cm/sec. Monophasic waveform. Mid SFA: PSV 143 cm/sec. Monophasic waveform. Distal SFA: PSV 134 cm/sec. Monophasic waveform. Popliteal artery: PSV 88 cm/sec. Monophasic waveform. Posterior tibial artery: PSV 86 cm/sec. Monophasic waveform. Dorsalis Pedis Artery: PSV 53 cm/sec. Monophasic waveform. Left YANETH: Not calculated. Borderline enlarged left groin nodes are noted. IMPRESSION: 1. Monophasic waveforms, as above. Ankle-Brachial Index (YANETH): - Calcified arteries > 1.4 - Normal = 0.9-1.4 - Mild PAD = 0.7-0.89 - Moderate PAD = 0.51-0.69 - Severe PAD < 0.5 Doppler Waveform: - Triphasic is normal. - Biphasic is abnormal if clear transition from triphasic signal along vascular tree. - Monophasic is abnormal. Signer Name: Hector Pedroza MD Signed: 02/26/2020 4:09 PM Workstation Name: [id number]
[2020-02-26] MEDS ORDERED: INSULIN REGULAR, HUMAN 100 UNITS/1 ML IV ONE (16:20)
[2020-02-26] MEDS ORDERED: ONDANSETRON 4 MG/2 ML INJ IV PRN (21:47)
[2020-02-26] MEDS ORDERED: HYDROmorphone 1 MG/1 ML INJ ONE (21:57)
[2020-02-26] MEDS ORDERED: ONDANSETRON 4 MG/2 ML INJ ONE (21:58)
[2020-02-26] MEDS: HYDROmorphone 1 MG/1 ML INJ IV PRN (22:00)
[2020-02-27] MEDS: NICOTINE 14 MG/24 HR PATCH TD SCH ×2 (02:16→21:48)
[2020-02-27] MEDS: HYDROmorphone 1 MG/1 ML INJ IV PRN (02:29)
[2020-02-27] MEDS ORDERED: ALBUTEROL 8.5 GM INHALATION IH PRN (02:32)
--- NOTE | 2020-02-27 02:32 | Event Note ---
Date: 02/26/20 See history and physical in the reports Left foot cellulitis/abscess secondary to diabetes
[2020-02-27] MEDS ORDERED: ACETAMINOPHEN 325 MG TAB PO PRN (02:35)
[2020-02-27] MEDS ORDERED: ONDANSETRON 4 MG/2 ML INJ IV PRN (02:35)
[2020-02-27] MEDS ORDERED: ALBUTEROL 2.5 MG/3 ML NEBU IH PRN (02:44)
--- NOTE | 2020-02-27 03:18 | History and Physical Report ---
CHIEF COMPLAINT: Left foot infection for 3 days. HISTORY OF PRESENT ILLNESS: A 54-year-old male with history of diabetes and recurrent left foot infection, comes in for left foot swelling and discharge on the medial aspect of the left foot for 3 days. The patient has an open ulcer on the left foot. The patient had a left great toe amputated in the past. No fever. Pain is 10 on a scale of 10. Purulent discharge from the right foot on the medial aspect just proximal to the great toe. Great toe is mentioned because of the surgery. Redness of the whole foot and extending up to the mid-calf region. No injury. PAST MEDICAL HISTORY: Significant for hypertension, type 2 diabetes and chronic left foot ulcer. PAST SURGICAL HISTORY: Left great toe amputation. SOCIAL HISTORY: Smokes a pack a day. FAMILY HISTORY: Hypertension. CURRENT MEDICATIONS: Amlodipine 10 mg once a day, metformin 500 mg twice a day and famotidine 20 mg twice a day, folic acid 1 mg once a day. REVIEW OF SYSTEMS: Significant for left foot infection with purulent drainage and pain 10/10 with erythema extending up to the mid-calf region. PHYSICAL EXAMINATION: GENERAL: Middle-aged male, cooperative during examination. VITAL SIGNS: Blood pressure is 128/79, temperature is 98, pulse is 93, respirations are 17. HEENT: Unremarkable. Pupils equal and reactive. NECK: Supple, no lymphadenopathy, no thyromegaly. LUNGS: Clear to auscultation and percussion. Good air entry. CARDIOVASCULAR: S1, S2 heard. No gallop, no murmur, no rub. Apical impulse in left fifth intercostal space and midclavicular line. ABDOMEN: Soft and benign. No hepatosplenomegaly. No guarding, no rigidity. Hernial orifices are normal. EXTREMITIES: Left foot erythema present for the whole of the foot in the left leg up to 6 inches below the knee. Large left foot ulcer present on the medial aspect of the plantar aspect just proximal to where the left great toe was present. Ulcer is about 6 x 3 cm with purulent drainage. CENTRAL NERVOUS SYSTEM: Alert and oriented x 4, nonfocal exam. LABORATORY DATA: Significant for white count of 7600, H and H is 16.2 and 47.0, platelet count is 236,000. Sodium is 129, BUN and creatinine is 28 and 0.7, alkaline phosphatase is 171. Albumin is 3.5. ASSESSMENT AND PLAN: 1. Left foot cellulitis and diabetic foot ulcer. The patient initiated on clindamycin and surgical consult for debridement. The patient may need a TMA/left below-knee amputation down the road. The patient needs to stop smoking. 2. Peripheral arterial disease. The patient is to stop smoking. We will initiate Pletal. We will get arterial duplex scan. 3. Hypertension. Continue amlodipine. 4. Type 2 diabetes. Aggressive management of diabetes. The patient initiated on 70/30 insulin twice a day, which may result in better control of his blood sugars. 5. Hyperlipidemia. Continue statins. 6. Deep venous thrombosis prophylaxis, heparin 5000 q. 12. In summary, the patient has left foot diabetic ulcer pain initiated on clindamycin. THE PATIENT IS ALLERGIC TO VANCOMYCIN. Also, pain control. JOB# [id number] VSM/NTS
[2020-02-27] MEDS: GABAPENTIN 300 MG CAP PO SCH ×3 (05:32→21:48)
[2020-02-27] MEDS: HYDROcodone/ACETAMINOPHEN 10-325MG TAB PO PRN ×3 (06:19→17:58)
[2020-02-27 06:28] LABS: Basophils % (Auto) 0.7 % (0.0-1.8); Eosinophils # (Auto) 0.2 K/mm3 (0.0-0.4); Eosinophils % (Auto) 3.2 % (0.0-4.3); Hematocrit 47.2 % (35.5-45.6); Hemoglobin 16.2 gm/dl (11.8-15.2); Lymphocytes # (Auto) 1.3 K/mm3 (1.2-5.4); Lymphocytes % (Auto) 17.6 % (13.4-35.0); Mean Corpuscular HGB Conc 34 % (32-34); Mean Corpuscular Volume 91 fl (84-94); Monocytes # (Auto) 0.8 K/mm3 (0.0-0.8); Monocytes % (Auto) 10.8 % (0.0-7.3); Platelet Count 237 K/mm3 (140-440); Red Blood Count 5.17 M/mm3 (3.65-5.03); Red Cell Distribution Width 15.3 % (13.2-15.2)
[2020-02-27 06:46] LABS: Alanine Aminotransferase 21 units/L (7-56); Albumin 3.6 g/dL (3.9-5); BUN/Creatinine Ratio 18; Blood Urea Nitrogen 14 mg/dL (9-20); Hemolysis Index 3
--- NOTE | 2020-02-27 09:10 | Progress Note ---
Assessment and Plan Assessment and plan: Left foot wound, cellulitis Surgeon consulted discussed with Dr. Matute, Surgeon For surgery tomorrow Hypertension Monitor BP Diabetes mellitus type 2 Fingerstick glucose qac and hs Hyperlipidemia Cont statin. Hyponatremia Monitor History of DVT Hold Eliquis because of surg tomorrow. peripheral vascular disease Consult vasc Surgeon. History Interval history: Left foot infection with pain, swelling, discharge Hospitalist Physical - Physical exam Narrative exam: GEN: Not in acute distress, lying in bed HEENT: Normocephalic, atraumatic, Neck: supple, No JVD Lungs:Clear to auscultation bilaterally, no wheeze Heart;S1 and S2 reg, no murmurs, rubs or gallop Abd:soft, non tender, non distended, normal bowel sounds, Ext: Left foot wound, erythema, infection, swollen, discharge, Neuro: Awake,alert,oriented X3 , no focal signs, - Constitutional Vitals: Temp Pulse Resp BP Pulse Ox 98.3 F 93 H 18 135/91 93 02/27/20 06:50 02/27/20 06:50 02/27/20 06:50 02/27/20 06:50 02/27/20 06:50 Results - Labs CBC & Chem 7: 02/27/20 05:58 02/27/20 05:58 Labs: Laboratory Last Values WBC 7.4 K/mm3 (4.5-11.0) 02/27/20 05:58 RBC 5.17 M/mm3 (3.65-5.03) H 02/27/20 05:58 Hgb 16.2 gm/dl (11.8-15.2) H 02/27/20 05:58 Hct 47.2 % (35.5-45.6) H 02/27/20 05:58 MCV 91 fl (84-94) 02/27/20 05:58 MCH 31 pg (28-32) 02/27/20 05:58 MCHC 34 % (32-34) 02/27/20 05:58 RDW 15.3 % (13.2-15.2) H 02/27/20 05:58 Plt Count 237 K/mm3 (140-440) 02/27/20 05:58 Lymph % (Auto) 17.6 % (13.4-35.0) 02/27/20 05:58 [place] % (Auto) 10.8 % (0.0-7.3) H 02/27/20 05:58 Eos % (Auto) 3.2 % (0.0-4.3) 02/27/20 05:58 Baso % (Auto) 0.7 % (0.0-1.8) 02/27/20 05:58 Lymph # 1.3 K/mm3 (1.2-5.4) 02/27/20 05:58 [place] # 0.8 K/mm3 (0.0-0.8) 02/27/20 05:58 Eos # 0.2 K/mm3 (0.0-0.4) 02/27/20 05:58 Baso # 0.0 K/mm3 (0.0-0.1) 02/27/20 05:58 Seg Neutrophils % 67.7 % (40.0-70.0) 02/27/20 05:58 Seg Neutrophils # 5.0 K/mm3 (1.8-7.7) 02/27/20 05:58 PT 13.0 Sec. (12.2-14.9) 02/26/20 14:12 INR 1.00 (0.87-1.13) 02/26/20 14:12 APTT 34.0 Sec. (24.2-36.6) 02/26/20 14:12 Sodium 131 mmol/L (137-145) L 02/27/20 05:58 Potassium 4.3 mmol/L (3.6-5.0) 02/27/20 05:58 Chloride 93.2 mmol/L (98-107) L 02/27/20 05:58 Carbon Dioxide 30 mmol/L (22-30) D 02/27/20 05:58 Anion Gap 12 mmol/L 02/27/20 05:58 BUN 14 mg/dL (9-20) 02/27/20 05:58 Creatinine 0.8 mg/dL (0.8-1.5) 02/27/20 05:58 Estimated GFR > 60 ml/min 02/27/20 05:58 BUN/Creatinine Ratio 18 % 02/27/20 05:58 Glucose 203 mg/dL (75-100) H 02/27/20 05:58 POC Glucose 178 (70-105) H 02/27/20 08:12 Hemoglobin A1c 6.8 % (4-6) H 02/27/20 05:58 Calcium 10.0 mg/dL (8.4-10.2) 02/27/20 05:58 Total Bilirubin 0.50 mg/dL (0.1-1.2) 02/27/20 05:58 Direct Bilirubin < 0.2 mg/dL (0-0.2) 02/26/20 14:12 Indirect Bilirubin 0.2 mg/dL 02/26/20 14:12 AST 15 units/L (5-40) 02/27/20 05:58 ALT 21 units/L (7-56) 02/27/20 05:58 Alkaline Phosphatase 180 units/L (35-129) H 02/27/20 05:58 Total Protein 7.3 g/dL (6.3-8.2) 02/27/20 05:58 Albumin 3.6 g/dL (3.9-5) L 02/27/20 05:58 Albumin/Globulin Ratio 1.0 % 02/27/20 05:58 Microbiology: Microbiology 02/26/20 14:12 Peripheral/Venous Blood Culture - Preliminary Culture in Progress 02/26/20 14:12 Peripheral/Venous Blood Culture - Preliminary Culture in Progress Jones/IV: Voiding Method Urinal IV Catheter Type [Right INT / Saline Lock Forearm] Active Medications - Current Medications Current Medications: Generic Name Dose Route Start Last Admin Trade Name Freq PRN Reason Stop Dose Admin Acetaminophen 650 mg 02/27/20 02:35 Tylenol PO Q4H PRN Pain MILD(1-3)/Fever >100.5/MILES Acetaminophen/Hydrocodone Bitart 1 each 02/27/20 02:32 02/27/20 06:19 [place] 10/325 PO 1 each Q6HR PRN Administration Pain, Moderate (4-6) Albuterol 2.5 mg 02/27/20 02:44 Proventil IH Q4HRT PRN Shortness Of Breath Amlodipine Besylate 10 mg 02/27/20 10:00 Amlodipine PO QDAY [facility] Famotidine 20 mg 02/27/20 10:00 Pepcid PO BID NADJA Folic Acid 1 mg 02/27/20 10:00 Folvite PO QDAY NADJA Gabapentin 300 mg 02/27/20 06:00 02/27/20 05:32 Gabapentin PO 300 mg Q8HR NADJA Administration Hydromorphone HCl 0.5 mg 02/26/20 21:47 02/27/20 02:29 Dilaudid IV 0.5 mg Q3H PRN Administration Pain , Severe (7-10) Clindamycin HCl 900 mg in 50 mls @ 100 mls/hr 02/27/20 06:00 02/27/20 05:32 Cleocin 900 Mg/50 Ml IV 100 mls/hr Q8HR NADJA Administration Protocol Insulin Human Isoph/Insulin Regular 15 unit 02/27/20 08:00 Humulin 70/30 SUB-Q BIDDIAB NADJA Insulin Human Lispro 0 unit 02/27/20 07:30 Humalog SUB-Q ACHS [facility] Protocol Mirtazapine 15 mg 02/27/20 22:00 Remeron PO QHS NADJA Nicotine 14 mg 02/27/20 01:40 02/27/20 02:16 Habitrol TD 14 mg QDAY@2200 NADJA Administration Ondansetron HCl 4 mg 02/27/20 02:35 Zofran IV Q8H PRN Nausea And Vomiting Pneumococcal Polyvalent Vaccine 0.5 ml 02/27/20 12:00 Pneumovax 23 IM 02/27/20 12:01 .ONCE ONE Sodium Chloride 10 ml 02/27/20 10:00 Sodium Chloride Flush Syringe 10 Ml IV BID NADJA Sodium Chloride 10 ml 02/27/20 02:35 Sodium Chloride Flush Syringe 10 Ml IV PRN PRN LINE FLUSH Thiamine HCl 100 mg 02/27/20 10:00 Vitamin B-1 PO QDAY [facility]
[2020-02-27] MEDS: INSULIN LISPRO 100 UNIT/ML SUB-Q SCH ×4 (09:18→23:47)
[2020-02-27] MEDS: FOLIC ACID 1 MG TAB PO SCH (09:19)
[2020-02-27] MEDS: THIAMINE 100 MG TAB PO SCH (09:20)
[2020-02-27] MEDS: FAMOTIDINE 20 MG TAB PO SCH ×2 (09:20→21:48)
[2020-02-27] MEDS: amLODIPine 10 MG TAB PO SCH (09:20)
[2020-02-27] MEDS: INSULIN NPH/REGULAR 70/30 INJ SUB-Q SCH ×2 (09:24→18:10)
--- NOTE | 2020-02-27 10:30 | Consultation ---
History of Present Illness Consult date: 02/27/20 Reason for consult: other (left foot wound) - History of present illness History of present illness: 54-year-old male presented to the emergency room with a 3-day history of left foot pain and foul-smelling drainage. He is a longstanding history of left foot great toe amputation followed by chronic poor healing wound. 6 months ago patient had surgical debridement with incision and drainage of fluid collection on his left foot and followed up with wound care intermittently. He has not seen wound care in at least 5 months due to loss to follow-up. Patient said that he was doing fine until 4 days ago when he wore a new pair of shoes that he believes may have been too tight and caused his current wound to reopen. Patient denies fever or chills. Patient says he is compliant with his diabetes medications. I am being consulted for reevaluation of his left foot wound. Past History Past Medical History: diabetes, hypertension, PVD Past Surgical History: Other (left great toe amputation with surgical wound care) Social history: smoking Family history: hypertension Medications and Allergies Allergies Allergy/AdvReac Type Severity Reaction Status Date / Time vancomycin Allergy Rash Verified 02/26/20 14:12 Home Medications Medication Instructions Recorded Confirmed Last Taken Type Famotidine [Pepcid] 20 mg PO BID #28 tablet 05/18/18 02/26/20 08/21/19 21:00 Rx Folic Acid [Folvite] 1 mg PO QDAY #30 tablet 05/18/18 02/26/20 08/17/19 Rx Mirtazapine [Remeron 15mg TAB] 15 mg PO QHS #30 tablet 05/18/18 02/26/20 1 10/22/18 21:00 Rx Thiamine [Vitamin B-1] 100 mg PO QDAY #30 tablet 05/18/18 02/26/20 08/17/19 Rx amLODIPine 10 mg PO QDAY #30 tablet 05/18/18 02/26/20 08/21/19 21:00 Rx metFORMIN [Glucophage] 500 mg PO BID #60 tablet 05/18/18 02/26/20 08/21/19 21:00 Rx Apixaban [Eliquis] 5 mg PO Q12HR #60 tablet 09/03/19 02/26/20 Unknown Rx Gabapentin 300 mg PO Q8HR #90 capsule 09/03/19 02/26/20 Unknown Rx Albuterol INH(or & Nicu Only) 2 puff IH QID PRN 02/26/20 02/26/20 Unknown History [ProAir HFA Inhaler] HYDROcodone/APAP 10-325 [[place] 1 each PO Q6HR PRN 02/26/20 02/26/20 Unknown History 10/325] Active Meds: Active Medications Acetaminophen (Tylenol) 650 mg PO Q4H PRN PRN Reason: Pain MILD(1-3)/Fever >100.5/MILES Acetaminophen/Hydrocodone Bitart ([place] 10/325) 1 each PO Q6HR PRN PRN Reason: Pain, Moderate (4-6) Last Admin: 02/27/20 06:19 Dose: 1 each Documented by: Albuterol (Proventil) 2.5 mg IH Q4HRT PRN PRN Reason: Shortness Of Breath Amlodipine Besylate (Amlodipine) 10 mg PO QDAY [facility] Last Admin: 02/27/20 09:20 Dose: 10 mg Documented by: Famotidine (Pepcid) 20 mg PO BID [facility] Last Admin: 02/27/20 09:20 Dose: 20 mg Documented by: Folic Acid (Folvite) 1 mg PO QDAY [facility] [place] Last Admin: 02/27/20 09:19 Dose: 1 mg Documented by: Gabapentin (Gabapentin) 300 mg PO Q8HR [facility] Last Admin: 02/27/20 05:32 Dose: 300 mg Documented by: Hydromorphone HCl (Dilaudid) 0.5 mg IV Q3H PRN PRN Reason: Pain , Severe (7-10) Last Admin: 02/27/20 02:29 Dose: 0.5 mg Documented by: Clindamycin HCl (Cleocin 900 Mg/50 Ml) 900 mg in 50 mls @ 100 mls/hr IV Q8HR [facility]; Protocol Last Admin: 02/27/20 05:32 Dose: 100 mls/hr Documented by: Insulin Human Isoph/Insulin Regular (Humulin 70/30) 15 unit SUB-Q BIDDIAB [facility] Last Admin: 02/27/20 09:24 Dose: 15 unit Documented by: Insulin Human Lispro (Humalog) 0 unit SUB-Q ACHS [facility]; Protocol Last Admin: 05/10/20 09:18 Dose: 2 unit Documented by: Mirtazapine (Remeron) 15 mg PO QHS [facility] Nicotine (Habitrol) 14 mg TD QDAY@2200 [facility] Last Admin: 02/27/20 02:16 Dose: 14 mg Documented by: Ondansetron HCl (Zofran) 4 mg IV Q8H PRN PRN Reason: Nausea And Vomiting Pneumococcal Polyvalent Vaccine (Pneumovax 23) 0.5 ml IM .ONCE ONE Stop: 02/27/20 12:01 Sodium Chloride (Sodium Chloride Flush Syringe 10 Ml) 10 ml IV BID [facility] Last Admin: 02/27/20 09:30 Dose: 10 ml Documented by: Sodium Chloride (Sodium Chloride Flush Syringe 10 Ml) 10 ml IV PRN PRN PRN Reason: LINE FLUSH Thiamine HCl (Vitamin B-1) 100 mg PO QDAY [facility] [place] Last Admin: 02/27/20 09:20 Dose: 100 mg Documented by: Review of Systems - Constitutional no fever, no chills - Cardiovascular no chest pain - Respiratory no cough - Gastrointestinal no abdominal pain, no nausea, no vomiting - Genitourinary no dysuria - Integumentary wounds, foot/leg ulcers Exam Vital Signs Temp Pulse Resp BP Pulse Ox 98.1 F 104 H 16 149/96 96 02/26/20 12:47 02/26/20 12:47 02/26/20 12:47 02/26/20 12:47 02/26/20 12:47 - General physical appearance Positive: well developed, no distress, no pain - Respiratory Positive: normal expansion, normal respiratory effort - Cardiovascular Rhythm: regular Heart Sounds: Present: S1 & S2 - Extremities Extremities: abnormal Extremity abnormal: other (left foot with open wound on the anterior/medial side where the amputation was. There is some foul smelling drainage but no fluctuant pockets appreciated. Desquatated skin observed with nectrotic tissue seen at the apex of the wound. There is a chronic non draining callous on the ball/sole of the foot. warm to touch with good capillary refill.) Results - Labs 02/27/20 05:58 02/27/20 05:58 Abnormal lab results 02/26/20 02/26/20 02/26/20 Range/Units 14:12 14:12 19:57 RBC 5.15 H (3.65-5.03) M/mm3 Hgb 16.2 H (11.8-15.2) gm/dl Hct 47.0 H (35.5-45.6) % MCHC 35 H (32-34) % RDW (13.2-15.2) % [place] % (Auto) 10.1 H (0.0-7.3) % Sodium 129 L (137-145) mmol/L Chloride 91.3 L (98-107) mmol/L Carbon Dioxide 21 L (22-30) mmol/L Creatinine 0.7 L (0.8-1.5) mg/dL Glucose 307 H (75-100) mg/dL POC Glucose 106 H (70-105) Hemoglobin A1c (4-6) % Alkaline Phosphatase 171 H (35-129) units/L Albumin 3.5 L (3.9-5) g/dL 02/27/20 02/27/20 02/27/20 Range/Units 05:58 05:58 05:58 RBC 5.17 H (3.65-5.03) M/mm3 Hgb 16.2 H (11.8-15.2) gm/dl Hct 47.2 H (35.5-45.6) % MCHC (32-34) % RDW 15.3 H (13.2-15.2) % [place] % (Auto) 10.8 H (0.0-7.3) % Sodium 131 L (137-145) mmol/L Chloride 93.2 L (98-107) mmol/L Carbon Dioxide (22-30) mmol/L Creatinine (0.8-1.5) mg/dL Glucose 203 H (75-100) mg/dL POC Glucose (70-105) Hemoglobin A1c 6.8 H (4-6) % Alkaline Phosphatase 180 H (35-129) units/L Albumin 3.6 L (3.9-5) g/dL 02/27/20 Range/Units 08:12 RBC (3.65-5.03) M/mm3 Hgb (11.8-15.2) gm/dl Hct (35.5-45.6) % MCHC (32-34) % RDW (13.2-15.2) % [place] % (Auto) (0.0-7.3) % Sodium (137-145) mmol/L Chloride (98-107) mmol/L Carbon Dioxide (22-30) mmol/L Creatinine (0.8-1.5) mg/dL Glucose (75-100) mg/dL POC Glucose 178 H (70-105) Hemoglobin A1c (4-6) % Alkaline Phosphatase (35-129) units/L Albumin (3.9-5) g/dL Diabetes panel 02/26/20 02/27/20 02/27/20 Range/Units 14:12 05:58 05:58 Sodium 129 L 131 L (137-145) mmol/L Potassium 4.3 4.3 (3.6-5.0) mmol/L Chloride 91.3 L 93.2 L (98-107) mmol/L Carbon Dioxide 21 L 30 D (22-30) mmol/L BUN 10 14 (9-20) mg/dL Creatinine 0.7 L 0.8 (0.8-1.5) mg/dL Glucose 307 H 203 H (75-100) mg/dL Hemoglobin A1c 6.8 H (4-6) % Calcium 9.8 10.0 (8.4-10.2) mg/dL AST 17 15 (5-40) units/L ALT 23 21 (7-56) units/L Alkaline Phosphatase 171 H 180 H (35-129) units/L Total Protein 7.4 7.3 (6.3-8.2) g/dL Albumin 3.5 L 3.6 L (3.9-5) g/dL Calcium panel 02/26/20 02/27/20 Range/Units 14:12 05:58 Calcium 9.8 10.0 (8.4-10.2) mg/dL Albumin 3.5 L 3.6 L (3.9-5) g/dL Pituitary panel 02/26/20 02/27/20 Range/Units 14:12 05:58 Sodium 129 L 131 L (137-145) mmol/L Potassium 4.3 4.3 (3.6-5.0) mmol/L Chloride 91.3 L 93.2 L (98-107) mmol/L Carbon Dioxide 21 L 30 D (22-30) mmol/L BUN 10 14 (9-20) mg/dL Creatinine 0.7 L 0.8 (0.8-1.5) mg/dL Glucose 307 H 203 H (75-100) mg/dL Calcium 9.8 10.0 (8.4-10.2) mg/dL Adrenal panel 02/26/20 02/27/20 Range/Units 14:12 05:58 Sodium 129 L 131 L (137-145) mmol/L Potassium 4.3 4.3 (3.6-5.0) mmol/L Chloride 91.3 L 93.2 L (98-107) mmol/L Carbon Dioxide 21 L 30 D (22-30) mmol/L BUN 10 14 (9-20) mg/dL Creatinine 0.7 L 0.8 (0.8-1.5) mg/dL Glucose 307 H 203 H (75-100) mg/dL Calcium 9.8 10.0 (8.4-10.2) mg/dL Total Bilirubin 0.40 0.50 (0.1-1.2) mg/dL AST 17 15 (5-40) units/L ALT 23 21 (7-56) units/L Alkaline Phosphatase 171 H 180 H (35-129) units/L Total Protein 7.4 7.3 (6.3-8.2) g/dL Albumin 3.5 L 3.6 L (3.9-5) g/dL - Imaging Additional studies: xray of left foot with no osteo observed. Assessment and Plan 54 year old diabetic male with acute infection of chronic left foot wound. Afebrile and stable. Continue abx, and will schedule for OR tomorrow for surgical debridement. Will then consult wound care and he can resume outpatient wound care. NPO 2am.
--- NOTE | 2020-02-27 11:16 | Consultation ---
History of Present Illness - Reason for Consult Consult date: 02/27/20 Left foot worsening wound - History of Present Illness Patient with a history of diabetes, microvascular disease, peripheral vascular disease and venous insufficiency presents with worsening of the wound along the medial aspect of his left foot extending into the mid metatarsals. Patient states that while at home, he noticed spontaneous foul-smelling serosanguineous drainage. No systemic symptoms. Patient has previously undergone an arteriogram which demonstrated minimal disease in his tibial vessels and on presentation, the patient underwent a arterial duplex which demonstrates biphasic flow proximally and monophasic flow in his tibial vessels. The patient does have asymmetric swelling left greater than right with sequela of venous insufficiency including bulging varicose veins extending to the thigh and he mosiderin staining along his ankle. Past History Past Medical History: diabetes, hypertension, PVD Past Surgical History: Other (left great toe amputation with surgical wound care) Social history: smoking Family history: hypertension Medications and Allergies Allergies Allergy/AdvReac Type Severity Reaction Status Date / Time vancomycin Allergy Rash Verified 02/26/20 14:12 Home Medications Medication Instructions Recorded Confirmed Last Taken Type Famotidine [Pepcid] 20 mg PO BID #28 tablet 05/18/18 02/26/20 08/21/19 21:00 Rx Folic Acid [Folvite] 1 mg PO QDAY #30 tablet 05/18/18 02/26/20 08/17/19 Rx Mirtazapine [Remeron 15mg TAB] 15 mg PO QHS #30 tablet 05/18/18 02/26/20 08/22/19 21:00 Rx Thiamine [Vitamin B-1] 100 mg PO QDAY #30 tablet 05/18/18 02/26/20 08/17/19 Rx amLODIPine 10 mg PO QDAY #30 tablet 05/18/18 02/26/20 08/21/19 21:00 Rx metFORMIN [Glucophage] 500 mg PO BID #60 tablet 05/18/18 02/26/20 08/21/19 21:00 Rx Apixaban [Eliquis] 5 mg PO Q12HR #60 tablet 09/03/19 02/26/20 Unknown Rx Gabapentin 300 mg PO Q8HR #90 capsule 09/03/19 02/26/20 Unknown Rx Albuterol INH(or & Nicu Only) 2 puff IH QID PRN 02/26/20 02/26/20 Unknown History [ProAir HFA Inhaler] HYDROcodone/APAP 10-325 [[place] 1 each PO Q6HR PRN 02/26/20 02/26/20 Unknown History 10/325] Active Meds: Active Medications Acetaminophen (Tylenol) 650 mg PO Q4H PRN PRN Reason: Pain MILD(1-3)/Fever >100.5/MILES Acetaminophen/Hydrocodone Bitart ([place] 10/325) 1 each PO Q6HR PRN PRN Reason: Pain, Moderate (4-6) Last Admin: 02/27/20 06:19 Dose: 1 each Documented by: Albuterol (Proventil) 2.5 mg IH Q4HRT PRN PRN Reason: Shortness Of Breath Amlodipine Besylate (Amlodipine) 10 mg PO QDAY [facility] Last Admin: 02/27/20 09:20 Dose: 10 mg Documented by: Famotidine (Pepcid) 20 mg PO BID [facility] Last Admin: 02/27/20 09:20 Dose: 20 mg Documented by: Folic Acid (Folvite) 1 mg PO QDAY [facility] Last Admin: 02/27/20 09:19 Dose: 1 mg Documented by: Gabapentin (Gabapentin) 300 mg PO Q8HR [facility] Last Admin: 02/27/20 05:32 Dose: 300 mg Documented by: Hydromorphone HCl (Dilaudid) 0.5 mg IV Q3H PRN PRN Reason: Pain , Severe (7-10) Last Admin: 02/27/20 02:29 Dose: 0.5 mg Documented by: Clindamycin HCl (Cleocin 900 Mg/50 Ml) 900 mg in 50 mls @ 100 mls/hr IV Q8HR [facility]; Protocol Last Admin: 02/27/20 05:32 Dose: 100 mls/hr Documented by: Insulin Human Isoph/Insulin Regular (Humulin 70/30) 15 unit SUB-Q BIDDIAB [facility] Last Admin: 02/27/20 09:24 Dose: 15 unit Documented by: Insulin Human Lispro (Humalog) 0 unit SUB-Q ACHS [facility]; Protocol Last Admin: 02/27/20 09:18 Dose: 2 unit Documented by: Mirtazapine (Remeron) 15 mg PO QHS [facility] Nicotine (Habitrol) 14 mg TD QDAY@2200 [facility] Last Admin: 02/27/20 02:16 Dose: 14 mg Documented by: Ondansetron HCl (Zofran) 4 mg IV Q8H PRN PRN Reason: Nausea And Vomiting Pneumococcal Polyvalent Vaccine (Pneumovax 23) 0.5 ml IM .ONCE ONE Stop: 02/27/20 12:01 Sodium Chloride (Sodium Chloride Flush Syringe 10 Ml) 10 ml IV BID [facility] Last Admin: 02/27/20 09:30 Dose: 10 ml Documented by: Sodium Chloride (Sodium Chloride Flush Syringe 10 Ml) 10 ml IV PRN PRN PRN Reason: LINE FLUSH Thiamine HCl (Vitamin B-1) 100 mg PO QDAY [facility] Last Admin: 02/27/20 09:20 Dose: 100 mg Documented by: Review of Systems All systems: negative Exam - Constitutional Vitals: Temp Pulse Resp BP Pulse Ox 97.6 F 89 22 141/91 95 02/27/20 08:00 02/27/20 08:00 02/27/20 08:00 02/27/20 09:20 02/27/20 08:00 General appearance: Present: no acute distress - EENT Eyes: Present: EOM intact ENT: hearing intact - Neck Neck: Present: supple, normal ROM - Respiratory Respiratory effort: normal - Extremities Extremities: abnormal Extremity abnormal: edema - Abdominal General gastrointestinal: Present: deferred Male genitourinary: Present: deferred - Rectal Rectal Exam: deferred - Psychiatric Psychiatric: appropriate mood/affect, cooperative Results - Labs CBC & Chem 7: 02/27/20 05:58 02/27/20 05:58 Labs: Abnormal lab results 02/26/20 02/26/20 02/26/20 Range/Units 14:12 14:12 19:57 RBC 5.15 H (3.65-5.03) M/mm3 Hgb 16.2 H (11.8-15.2) gm/dl Hct 47.0 H (35.5-45.6) % MCHC 35 H (32-34) % RDW (13.2-15.2) % [place] % (Auto) 10.1 H (0.0-7.3) % Sodium 129 L (137-145) mmol/L Chloride 91.3 L (98-107) mmol/L Carbon Dioxide 21 L (22-30) mmol/L Creatinine 0.7 L (0.8-1.5) mg/dL Glucose 307 H (75-100) mg/dL POC Glucose 106 H (70-105) Hemoglobin A1c (4-6) % Alkaline Phosphatase 171 H (35-129) units/L Albumin 3.5 L (3.9-5) g/dL 02/27/20 02/27/20 02/27/20 Range/Units 05:58 05:58 05:58 RBC 5.17 H (3.65-5.03) M/mm3 Hgb 16.2 H (11.8-15.2) gm/dl Hct 47.2 H (35.5-45.6) % MCHC (32-34) % RDW 15.3 H (13.2-15.2) % [place] % (Auto) 10.8 H (0.0-7.3) % Sodium 131 L (137-145) mmol/L Chloride 93.2 L (98-107) mmol/L Carbon Dioxide (22-30) mmol/L Creatinine (0.8-1.5) mg/dL Glucose 203 H (75-100) mg/dL POC Glucose (70-105) Hemoglobin A1c 6.8 H (4-6) % Alkaline Phosphatase 180 H (35-129) units/L Albumin 3.6 L (3.9-5) g/dL 02/27/20 Range/Units 08:12 RBC (3.65-5.03) M/mm3 Hgb (11.8-15.2) gm/dl Hct (35.5-45.6) % MCHC (32-34) % RDW (13.2-15.2) % [place] % (Auto) (0.0-7.3) % Sodium (137-145) mmol/L Chloride (98-107) mmol/L Carbon Dioxide (22-30) mmol/L Creatinine (0.8-1.5) mg/dL Glucose (75-100) mg/dL POC Glucose 178 H (70-105) Hemoglobin A1c (4-6) % Alkaline Phosphatase (35-129) units/L Albumin (3.9-5) g/dL - Imaging and Cardiology Venous US: report reviewed (Arterial duplex) Assessment and Plan Given the worsening wound in the patient's left foot, the patient will be scheduled for diagnostic angiography tomorrow. Additionally, the patient will need diagnostic venography to evaluate his deep venous system given the asymmetric left greater than right sequela of venous insufficiency. The patient's wound care doctor Dr. Matute will need to be consulted for potentially additional debridement.
[2020-02-27] MEDS ORDERED: PNEUMOCOCCAL 23 Valent 0.5 ML VIAL IM ONE (12:00)
[2020-02-27] MEDS ORDERED: VANCOMYCIN 1,500 MG in SODIUM CHLORIDE 0.9% 500 ML 500 ML IV ONE (14:51)
--- NOTE | 2020-02-27 14:51 | Consultation ---
History of Present Illness - Reason for Consult Consult date: 02/27/20 Left foot infection Requesting physician: MANOLO HDZ - History of Present Illness The patient is a 54-year-old male with diabetes mellitus type 2, hypertension, peripheral vascular disease, active tobacco use, alcohol use was admitted to the hospital yesterday with complaints of worsening ulceration and drainage from his left foot. He has previously had his left great toe amputation done due to infection. He is known to us from his previous hospitalization in August 2019 that required surgical intervention on his left foot, MRI was negative for osteo at that time. Upon evaluation in the ER, he was noted to have an ulceration on his left foot. General surgery was consulted and is planning debridement in the OR. Vascular surgery was also consulted and is planning diagnostic angiogram. No fever or chills. No leukocytosis. Review of Systems: General: no fevers,chills or rigors HEENT: no new visual disturbance Respiratory: No cough, sputum, hemoptysis or shortness of breath Cardiovascular: No chest pain, syncope Gastrointestinal: No nausea, vomiting or diarrhea Genitourinary: No dysuria or hematuria Musculoskeletal: No new or worsening neck pain or back pain Neurologic: No headaches, seizures Hematologic: No easy bruising or bleeding Endocrine: No night sweats or acute weight loss Skin: negative for rash, jaundice Psychiatric: No suicidal or homicidal ideation Past History Past Medical History: diabetes, hypertension, PVD Past Surgical History: Other (left great toe amputation with surgical wound care) Social history: smoking Family history: hypertension Medications and Allergies Allergies Allergy/AdvReac Type Severity Reaction Status Date / Time vancomycin Allergy Rash Verified 02/26/20 14:12 Home Medications Medication Instructions Recorded Confirmed Last Taken Type Famotidine [Pepcid] 20 mg PO BID #28 tablet 05/18/18 02/26/20 08/21/19 21:00 Rx Folic Acid [Folvite] 1 mg PO QDAY #30 tablet 05/18/18 02/26/20 08/17/19 Rx Mirtazapine [Remeron 15mg TAB] 15 mg PO QHS #30 tablet 05/18/18 02/26/20 08/22/19 21:00 Rx Thiamine [Vitamin B-1] 100 mg PO QDAY #30 tablet 05/18/18 02/26/20 08/17/19 Rx amLODIPine 10 mg PO QDAY #30 tablet 05/18/18 02/26/20 08/21/19 21:00 Rx metFORMIN [Glucophage] 500 mg PO BID #60 tablet 05/18/18 02/26/20 08/21/19 21:00 Rx Apixaban [Eliquis] 5 mg PO Q12HR #60 tablet 09/03/19 02/26/20 Unknown Rx Gabapentin 300 mg PO Q8HR #90 capsule 09/03/19 02/26/20 Unknown Rx Albuterol INH(or & Nicu Only) 2 puff IH QID PRN 02/26/20 02/26/20 Unknown History [ProAir HFA Inhaler] HYDROcodone/APAP 10-325 [[place] 1 each PO Q6HR PRN 02/26/20 02/26/20 Unknown History 10/325] Active Meds: Active Medications Acetaminophen (Tylenol) 650 mg PO Q4H PRN PRN Reason: Pain MILD(1-3)/Fever >100.5/MILES Acetaminophen/Hydrocodone Bitart ([place] 10/325) 1 each PO Q6HR PRN PRN Reason: Pain, Moderate (4-6) Last Admin: 02/27/20 12:00 Dose: 1 each Documented by: Albuterol (Proventil) 2.5 mg IH Q4HRT PRN PRN Reason: Shortness Of Breath Amlodipine Besylate (Amlodipine) 10 mg PO QDAY [facility] Last Admin: 02/27/20 09:20 Dose: 10 mg Documented by: Famotidine (Pepcid) 20 mg PO BID [facility] Last Admin: 02/27/20 09:20 Dose: 20 mg Documented by: Folic Acid (Folvite) 1 mg PO QDAY [facility] Last Admin: 02/27/20 09:19 Dose: 1 mg Documented by: Gabapentin (Gabapentin) 300 mg PO Q8HR [facility] Last Admin: 02/27/20 05:32 Dose: 300 mg Documented by: Hydromorphone HCl (Dilaudid) 0.5 mg IV Q3H PRN PRN Reason: Pain , Severe (7-10) Last Admin: 02/27/20 02:29 Dose: 0.5 mg Documented by: Clindamycin HCl (Cleocin 900 Mg/50 Ml) 900 mg in 50 mls @ 100 mls/hr IV Q8HR [facility]; Protocol Last Admin: 02/27/20 05:32 Dose: 100 mls/hr Documented by: Insulin Human Isoph/Insulin Regular (Humulin 70/30) 15 unit SUB-Q BIDDIAB [facility] Last Admin: 02/27/20 09:24 Dose: 15 unit Documented by: Insulin Human Lispro (Humalog) 0 unit SUB-Q ACHS [facility]; Protocol Last Admin: 02/27/20 12:02 Dose: 3 unit Documented by: Mirtazapine (Remeron) 15 mg PO QHS [facility] Nicotine (Habitrol) 14 mg TD QDAY@2200 [facility] Last Admin: 02/27/20 02:16 Dose: 14 mg Documented by: Ondansetron HCl (Zofran) 4 mg IV Q8H PRN PRN Reason: Nausea And Vomiting Sodium Chloride (Sodium Chloride Flush Syringe 10 Ml) 10 ml IV BID [facility] Last Admin: 02/27/20 09:30 Dose: 10 ml Documented by: Sodium Chloride (Sodium Chloride Flush Syringe 10 Ml) 10 ml IV PRN PRN PRN Reason: LINE FLUSH Thiamine HCl (Vitamin B-1) 100 mg PO QDAY [facility] Last Admin: 02/27/20 09:20 Dose: 100 mg Documented by: Physical Examination - Physical Exam Narrative exam: Physical Exam: Constitutional: Alert, cooperative. No acute distress Head, Ears, Nose: Normocephalic, atraumatic. External ears, nose normal Eyes: Conjunctivae/corneas clear. No icterus. No ptosis. Neck: Supple, no meningeal signs Cardiovascular: S1, S2 normal. Respiratory: Good air entry, clear to auscultation bilaterally GI: Soft, non-tender; bowel sounds normal. No peritoneal signs Musculoskeletal: Left leg dressing + Skin: No rash or abscess Hem/Lymphatic: No palpable cervical or supraclavicular nodes. No lymphangitis Psych: Mood ok. Affect normal Neurological: Awake, alert, oriented. No gross abnormality - Constitutional Vitals: Vital Signs Temp Pulse Resp BP Pulse Ox 98.6 F 90 22 133/83 94 02/27/20 10:56 02/27/20 10:56 02/27/20 10:56 02/27/20 10:56 02/27/20 10:56 Temperature -Last 24 Hours Temperature 98.6 F Temperature 97.6 F Temperature 98.3 F Temperature 98.3 F Results - Labs CBC & Chem 7: 02/27/20 05:58 02/27/20 05:58 Labs: Abnormal lab results 02/26/20 02/27/20 02/27/20 Range/Units 19:57 05:58 05:58 RBC 5.17 H (3.65-5.03) M/mm3 Hgb 16.2 H (11.8-15.2) gm/dl Hct 47.2 H (35.5-45.6) % RDW 15.3 H (13.2-15.2) % [place] % (Auto) 10.8 H (0.0-7.3) % Sodium 131 L (137-145) mmol/L Chloride 93.2 L (98-107) mmol/L Glucose 203 H (75-100) mg/dL POC Glucose 106 H (70-105) Hemoglobin A1c (4-6) % Alkaline Phosphatase 180 H (35-129) units/L Albumin 3.6 L (3.9-5) g/dL 02/27/20 02/27/20 02/27/20 Range/Units 05:58 08:12 11:08 RBC (3.65-5.03) M/mm3 Hgb (11.8-15.2) gm/dl Hct (35.5-45.6) % RDW (13.2-15.2) % [place] % (Auto) (0.0-7.3) % Sodium (137-145) mmol/L Chloride (98-107) mmol/L Glucose (75-100) mg/dL POC Glucose 178 H 215 H (70-105) Hemoglobin A1c 6.8 H (4-6) % Alkaline Phosphatase (35-129) units/L Albumin (3.9-5) g/dL Assessment and Plan Cultures: 02/26/2020 blood culture: In process A/P: 54-year-old male with diabetes mellitus type 2, hypertension, peripheral vascular disease, active tobacco use, alcohol use was admitted to the hospital yesterday with complaints of worsening ulceration and drainage from his left foot. He has previously had his left great toe amputation done due to infection. He is known to us from his previous hospitalization in August 2019 that required surgical intervention on his left foot, MRI was negative for osteo at that time, now with: #Worsening left foot diabetic ulceration: No fever or leucytosis. Xray negative for osteomyelitis. #DM 2, h/o left great toe amputation: tight glycemic control #Peripheral vascular disease: awaits angio. Vascular following. Arterial doppler with monophasic flow. #Tobacco abuse: Recommend smoking cessation #Vancomycin allergy: Not a true allergy, patient reports "red man" syndrome from vancomycin that resolves with Benadryl. Recommend as needed Benadryl and in fusing vancomycin at a slower infusion rate. Recs: Agree with plans for debridement, please send deep cultures from debridement Empiric antibiotics for now: IV Cefepime and Vancomycin ESR and CRP ordered, if elevated, would get MRI. If surgical findings are concerning for osteomyelitis, MRI may not be needed Dr. Mohti kingston tomorrow Renée Gardner MD, FACP [facility] ([facility] C: [phone] O: [phone] F: [phone]
[2020-02-27] MEDS ORDERED: VANCOMYCIN PHARMACY TO DOSE IV SCH (15:00)
[2020-02-27] MEDS ORDERED: VANCOMYCIN 1,750 MG in SODIUM CHLORIDE 0.9% 500 ML 500 ML IV ONE (16:00)
[2020-02-27] MEDS: CEFEPIME/NS 2 GM/100 ML 2 GM/100 ML BAG IV SCH (17:05)
[2020-02-27] MEDS: diphenhydrAMINE 50 MG/ML VIAL IV PRN (18:00)
[2020-02-27] MEDS: MIRTAZAPINE 15 MG TAB PO SCH (21:48)
[2020-02-28] MEDS: VANCOMYCIN 1,500 MG in SODIUM CHLORIDE 0.9% 500 ML 500 ML IV SCH ×5 (00:01→17:42)
[2020-02-28] MEDS: diphenhydrAMINE 50 MG/ML VIAL IV PRN ×3 (00:01→17:42)
[2020-02-28] MEDS: CEFEPIME/NS 2 GM/100 ML 2 GM/100 ML BAG IV SCH ×2 (05:09→17:41)
[2020-02-28] MEDS: HYDROcodone/ACETAMINOPHEN 10-325MG TAB PO PRN ×2 (05:17)
[2020-02-28] MEDS: GABAPENTIN 300 MG CAP PO SCH ×3 (05:18→21:27)
[2020-02-28 05:47] LABS: BUN/Creatinine Ratio 20; Blood Urea Nitrogen 16 mg/dL (9-20); Calcium 9.3 mg/dL (8.4-10.2); Hemolysis Index 4
[2020-02-28] MEDS: INSULIN NPH/REGULAR 70/30 INJ SUB-Q SCH ×2 (08:00→17:42)
[2020-02-28] MEDS: INSULIN LISPRO 100 UNIT/ML SUB-Q SCH ×4 (08:00→21:32)
[2020-02-28] MEDS: amLODIPine 10 MG TAB PO SCH ×2 (08:29→10:00)
--- NOTE | 2020-02-28 08:47 | Progress Note ---
Assessment and Plan Assessment and plan: Left foot wound, cellulitis Surgeon consulted discussed with Dr. Matute, Surgeon For surgery tomorrow Hypertension Monitor BP Diabetes mellitus type 2 Fingerstick glucose qac and hs Hyperlipidemia Cont statin. Hyponatremia Monitor History of DVT Hold Eliquis because of surg tomorrow. peripheral vascular disease Consult [facility] Surgeon. 02/28/20 patient with left wound infection . for surgery today. patient seen by [facility] surg. For diagnostic venography as per [facility] surg. History Interval history: Left foot infection with pain, swelling, discharge For surgery today Hospitalist Physical - Physical exam Narrative exam: GEN: Not in acute distress, sitting up in bed HEENT: Normocephalic, atraumatic, Neck: supple, No JVD Lungs:Clear to auscultation bilaterally, no wheeze Heart;S1 and S2 reg, no murmurs, rubs or gallop Abd:soft, non tender, non distended, normal bowel sounds, Ext: Left foot wound, erythema, infection, swollen, discharge, Neuro: Awake,alert,oriented X3 , no focal signs, - Constitutional Vitals: Temp Pulse Resp BP Pulse Ox 98.1 F 90 20 146/91 91 02/28/20 05:14 02/28/20 08:29 02/28/20 05:17 02/28/20 08:29 02/28/20 05:14 General appearance: Present: no acute distress Results - Labs CBC & Chem 7: 02/27/20 05:58 02/28/20 04:42 Labs: Laboratory Last Values WBC 7.4 K/mm3 (4.5-11.0) 02/27/20 05:58 RBC 5.17 M/mm3 (3.65-5.03) H 02/27/20 05:58 Hgb 16.2 gm/dl (11.8-15.2) H 02/27/20 05:58 Hct 47.2 % (35.5-45.6) H 02/27/20 05:58 MCV 91 fl (84-94) 02/27/20 05:58 MCH 31 pg (28-32) 02/27/20 05:58 MCHC 34 % (32-34) 02/27/20 05:58 RDW 15.3 % (13.2-15.2) H 02/27/20 05:58 Plt Count 237 K/mm3 (140-440) 02/27/20 05:58 Lymph % (Auto) 17.6 % (13.4-35.0) 02/27/20 05:58 [place] % (Auto) 10.8 % (0.0-7.3) H 02/27/20 05:58 Eos % (Auto) 3.2 % (0.0-4.3) 02/27/20 05:58 Baso % (Auto) 0.7 % (0.0-1.8) 02/27/20 05:58 Lymph # 1.3 K/mm3 (1.2-5.4) 02/27/20 05:58 [place] # 0.8 K/mm3 (0.0-0.8) 02/27/20 05:58 Eos # 0.2 K/mm3 (0.0-0.4) 02/27/20 05:58 Baso # 0.0 K/mm3 (0.0-0.1) 02/27/20 05:58 Seg Neutrophils % 67.7 % (40.0-70.0) 02/27/20 05:58 Seg Neutrophils # 5.0 K/mm3 (1.8-7.7) 02/27/20 05:58 ESR 44 mm/Hr (0-20) 02/28/20 04:42 PT 13.0 Sec. (12.2-14.9) 02/26/20 14:12 INR 1.00 (0.87-1.13) 02/26/20 14:12 APTT 34.0 Sec. (24.2-36.6) 02/26/20 14:12 Sodium 139 mmol/L (137-145) D 02/28/20 04:42 Potassium 4.9 mmol/L (3.6-5.0) 02/28/20 04:42 Chloride 101.0 mmol/L (98-107) 02/28/20 04:42 Carbon Dioxide 29 mmol/L (22-30) 02/28/20 04:42 Anion Gap 14 mmol/L 02/28/20 04:42 BUN 16 mg/dL (9-20) 02/28/20 04:42 Creatinine 0.8 mg/dL (0.8-1.5) 02/28/20 04:42 Estimated GFR > 60 ml/min 02/28/20 04:42 BUN/Creatinine Ratio 20 % 02/28/20 04:42 Glucose 212 mg/dL (75-100) H 02/28/20 04:42 POC Glucose 195 (70-105) H 02/28/20 07:51 Hemoglobin A1c 6.8 % (4-6) H 02/27/20 05:58 Calcium 9.3 mg/dL (8.4-10.2) 02/28/20 04:42 Total Bilirubin 0.50 mg/dL (0.1-1.2) 02/27/20 05:58 Direct Bilirubin < 0.2 mg/dL (0-0.2) 02/26/20 14:12 Indirect Bilirubin 0.2 mg/dL 02/26/20 14:12 AST 15 units/L (5-40) 02/27/20 05:58 ALT 21 units/L (7-56) 02/27/20 05:58 Alkaline Phosphatase 180 units/L (35-129) H 02/27/20 05:58 C-Reactive Protein 5.00 mg/dL (0.00-1.30) H 02/28/20 04:42 Total Protein 7.3 g/dL (6.3-8.2) 02/27/20 05:58 Albumin 3.6 g/dL (3.9-5) L 02/27/20 05:58 Albumin/Globulin Ratio 1.0 % 02/27/20 05:58 Microbiology: Microbiology 02/26/20 14:12 Peripheral/Venous Blood Culture - Preliminary NO GROWTH AFTER 24 HOURS 02/26/20 14:12 Peripheral/Venous Blood Culture - Preliminary NO GROWTH AFTER 24 HOURS Jones/IV: Voiding Method Toilet IV Catheter Type [Right INT / Saline Lock Forearm] Active Medications - Current Medications Current Medications: Generic Name Dose Route Start Last Admin Trade Name Freq PRN Reason Stop Dose Admin Acetaminophen 650 mg 02/27/20 02:35 Tylenol PO Q4H PRN Pain MILD(1-3)/Fever >100.5/MILES Acetaminophen/Hydrocodone Bitart 1 each 02/27/20 02:32 02/28/20 05:17 [place] 10/325 PO 1 each Q6HR PRN Administration Pain, Moderate (4-6) Albuterol 2.5 mg 02/27/20 02:44 Proventil IH Q4HRT PRN Shortness Of Breath Amlodipine Besylate 10 mg 02/27/20 10:00 02/28/20 08:29 Amlodipine PO 10 mg QDAY NADJA Administration Diphenhydramine HCl 25 mg 02/27/20 16:32 02/28/20 08:28 Benadryl IV 25 mg Q6H PRN Administration Rash Famotidine 20 mg 02/27/20 10:00 02/27/20 21:48 Pepcid PO 20 mg BID NADJA Administration Folic Acid 1 mg 02/27/20 10:00 02/27/20 09:19 Folvite PO 1 mg QDAY NADJA Administration Gabapentin 300 mg 02/27/20 06:00 02/28/20 05:18 Gabapentin PO 300 mg Q8HR NADJA Administration Hydromorphone HCl 0.5 mg 02/26/20 21:47 02/27/20 02:29 Dilaudid IV 0.5 mg Q3H PRN Administration Pain , Severe (7-10) Cefepime HCl 2 gm in 100 mls @ 200 mls/hr 02/27/20 16:00 02/28/20 05:09 Cefepime/Ns 2 Gm/100 Ml IV 200 mls/hr Q12H NADJA Administration Protocol Vancomycin HCl 1,500 mg/ 530 mls @ 212 mls/hr 02/28/20 00:00 02/28/20 08:28 Sodium Chloride IV 212 mls/hr Q8H NADJA Administration Insulin Human Isoph/Insulin Regular 15 unit 02/27/20 08:00 02/27/20 18:10 Humulin 70/30 SUB-Q 15 unit BIDDIAB NADJA Administration Insulin Human Lispro 0 unit 02/27/20 07:30 02/28/20 08:00 Humalog SUB-Q Not Given ACHS [facility] Protocol Mirtazapine 15 mg 02/27/20 22:00 02/27/20 21:48 Remeron PO 15 mg QHS NADJA Administration Nicotine 14 mg 02/27/20 01:40 02/27/20 21:48 Habitrol TD 14 mg QDAY@2200 NADJA Administration Ondansetron HCl 4 mg 02/27/20 02:35 Zofran IV Q8H PRN Nausea And Vomiting Sodium Chloride 10 ml 02/27/20 10:00 02/27/20 21:49 Sodium Chloride Flush Syringe 10 Ml IV 10 ml BID NADJA Administration Sodium Chloride 10 ml 02/27/20 02:35 02/28/20 05:09 Sodium Chloride Flush Syringe 10 Ml IV 10 ml PRN PRN Administration LINE FLUSH Thiamine HCl 100 mg 02/27/20 10:00 02/27/20 09:20 Vitamin B-1 PO 100 mg QDAY NADJA Administration
[2020-02-28] MEDS ORDERED: HEPARIN 10,000 UNITS/10 ML VIAL ONE (09:28)
[2020-02-28] MEDS ORDERED: HEPARIN/NS 5000 UNIT/500ML 1,000 ML IR ONE (09:28)
[2020-02-28] MEDS ORDERED: NITROGLYCERIN SYRINGE 0 ML ONE (09:28)
[2020-02-28] MEDS ORDERED: SODIUM CHLORIDE 0.9% 500 ML 500 ML ONE (09:40)
[2020-02-28] MEDS: MIDAZOLAM 2 MG/2 ML INJ ONE ×3 (10:11→10:20)
[2020-02-28] MEDS: fentaNYL 100 MCG/2 ML INJ ONE ×3 (10:11→10:20)
[2020-02-28] MEDS: LIDOCAINE 1%/EPINEPHRINE 1:100,000 VIAL (20 ML) INFILTRATI ONE ×2 (10:11→10:14)
--- NOTE | 2020-02-28 10:50 | Post Operative Note ---
Date of procedure: 02/28/20 Pre-op diagnosis: Left Lower Extremity Critical Limb Ischemia Post-op diagnosis: same Findings: Aorto-iliac system widely patent bilaterally, Left Common femoral, origin of the superficial femoral and profunda femoral patent, proximal SFA patent with 30-40% stenosis of the mid SFA, distal SFA and popliteal artery widely patent, origin of the left AT patent, 30-40% stenosis of the distal TP trunk, origin of the PT and peroneal patent, with 3 vessel runoff widely patent to ankle, Both PT and DP patent in the foot with patent plantar arch Procedure: 1. Ultrasound access of right femoral artery 2. Diagnostic Aortogram 2. Left Lower Extremity Diagnostic Angiogram with 2nd Order Catheter placement 4. Monitored Conscious Sedation for 23 minutes Anesthesia: MAC, local Surgeon: BENJIE POLLOCK Estimated blood loss: minimal Pathology: none Condition: stable Disposition: floor
[2020-02-28] MEDS: FOLIC ACID 1 MG TAB PO SCH (11:11)
[2020-02-28] MEDS: THIAMINE 100 MG TAB PO SCH (11:11)
[2020-02-28] MEDS: FAMOTIDINE 20 MG TAB PO SCH ×2 (11:11→21:27)
[2020-02-28] MEDS: HYDROmorphone 1 MG/1 ML INJ IV PRN ×3 (11:11→22:47)
--- NOTE | 2020-02-28 11:29 | Operative Report ---
STAFF SURGEON: Dr. Arden Ortiz. PREOPERATIVE DIAGNOSIS: Left lower extremity critical limb ischemia. POSTOPERATIVE DIAGNOSIS: Left lower extremity critical limb ischemia. PROCEDURE PERFORMED: 1. Ultrasound access of the right common femoral artery. 2. Diagnostic aortogram. 3. Left lower extremity diagnostic angiogram with a second order catheter placement. 4. Monitored conscious sedation for approximately 23 minutes. COMPLICATIONS: None. ESTIMATED BLOOD LOSS: Less than 10 mL. ANESTHESIA: Local MAC. ANGIOGRAPHIC FINDINGS: The aortoiliac system was widely patent bilaterally. The left common femoral origin of the superficial femoral and profunda femoral arteries were all widely patent. The proximal superficial femoral artery was widely patent. There was a 30-40% stenosis noted at the mid SFA. The distal SFA and popliteal arteries were widely patent. The origin of the left anterior tibial artery was widely patent. There was a 30-40% stenosis of the distal tibioperoneal trunk. The origin of the posterior tibial and peroneal arteries were widely patent with a 3-vessel runoff that was widely patent to the ankle. Both the posterior tibial and dorsalis pedis were patent in the foot with an intact and widely patent plantar arch. INDICATIONS FOR PROCEDURE: This is a 54-year-old gentleman with poorly controlled diabetes mellitus and known peripheral vascular disease with prior intervention of the left lower extremity for nonhealing left great toe for which he underwent endovascular revascularization and amputation, which healed at that time. The patient now returning with some findings of cellulitis and purulent drainage from the amputated site. The patient had a diagnostic arterial studies that were concerning for potential arterial insufficiency and therefore it was thought appropriate to perform diagnostic angiogram before the patient was to undergo surgical debridement to assess his perfusion to the foot. The patient was explained of the risks, benefits and alternatives of the procedure, expressed understanding and wished to proceed. DESCRIPTION OF PROCEDURE: After appropriate consent was obtained, the patient was brought back to the lab coordinator, placed on the table in supine position. The right groin was prepped and draped in a sterile fashion with ChloraPrep. Appropriate timeout was performed indicating the correct patient, procedure, and site of procedure. I then began the intervention by obtaining a percutaneous access of the right common femoral artery using a micropuncture technique under ultrasound guidance. Once we obtained access, needle was exchanged for a micropuncture sheath using Seldinger technique. This was then upsized to a 5-Macedonian sheath over a stiff J wire. We then proceeded to place an Omniflush catheter into the infrarenal aorta. A diagnostic aortogram was performed in 2 views. We then proceeded to cannulate the left iliac system with a combination of Omniflush catheter and Glidewire. Once that was complete, the Omniflush catheter was removed and the vertebral catheter was advanced over the bifurcation into the distal external iliac artery. Then, a series of diagnostic imaging of the left lower extremity was performed, which demonstrated the findings noted above. We then proceeded to advance the vertebral catheter and Glidewire into the P2 segment of the popliteal artery. The Glidewire was removed and then a series of diagnostic imaging of the tibial runoff was performed for the left lower extremity, which demonstrated the findings noted above. With no significant flow limiting lesions, the vertebral catheter was removed over the Glidewire and the sheath was removed with digital compression at the access site. Once we were satisfied with hemostasis, appropriate dressing was placed. The patient tolerated the procedure well, emerged from the conscious sedation and sent to recovery in stable condition. JOB# [id number] DIANA/CAROL
--- NOTE | 2020-02-28 15:05 | Anesthesia Consultation ---
Anesthesia Consult and Med Hx Date of service: 02/28/20 - Airway Anesthetic Teeth Evaluation: Bridges ROM Head & Neck: Adequate Mental/Hyoid Distance: Adequate Mallampati Class: Class II Intubation Access Assessment: Probably Good - Pre-Operative Health Status ASA Pre-Surgery Classification: ASA3 Proposed Anesthetic Plan: General - Pulmonary Hx Smoking: Yes (1.5 ppd) Hx Asthma: No Hx Respiratory Symptoms: No SOB: No COPD: No Home Oxygen Therapy: No Hx Pneumonia: No Hx Sleep Apnea: No - Cardiovascular System Hx Hypertension: Yes Hx Coronary Artery Disease: No Hx Heart Attack/AMI: No Hx Angina: No Hx Percutaneous Transluminal Coronary Angioplasty (PTCA): No Hx Cardia Arrhythmia: No Hx Pacemaker: No Hx Internal Defibrillator: No Hx Valvular Heart Disease: No Hx Heart Murmur: No Hx Peripheral Vascular Disease: No - Central Nervous System Hx Neuromuscular Disorder: No Hx Seizures: No CVA: No Hx Back Pain: Yes Hx Psychiatric Problems: No - Gastrointestinal Hx Ulcer: No Hx Gastroesophageal Reflux Disease: No - Endocrine Hx Renal Disease: No Hx End Stage Renal Disease: No Hx Cirrhosis: No (Heavy EtOH) Hx Liver Disease: No Hx Insulin Dependent Diabetes: No Hx Non-Insulin Dependent Diabetes: Yes Hx Thyroid Disease: No Hx Hypothyroidism: No Hx Hyperthyroidism: No - Hematic Hx Anemia: No Hx Sickle Cell Disease: No - Other Systems Hx Alcohol Use: Yes Hx Substance Use: No Hx Cancer: No Hx Obesity: Yes
--- NOTE | 2020-02-28 15:07 | Anesthesia Day of Surgery ---
Anesthesia Day of Surgery - Day of Surgery Patient Examined: Yes Patient H&P Reviewed: Yes Patient is NPO: Yes
[2020-02-28] MEDS ORDERED: ONDANSETRON 4 MG/2 ML INJ ONE (15:08)
[2020-02-28] MEDS ORDERED: LIDOCAINE MPF (2%) 20 MG/1 ML VIAL 5 ML ONE (15:08)
[2020-02-28] MEDS ORDERED: fentaNYL 100 MCG/2 ML INJ ONE (15:09)
[2020-02-28] MEDS ORDERED: propofoL 200 MG/20 ML VIAL IV ONE (15:09)
[2020-02-28] MEDS ORDERED: BUPIVACAINE-EPINEPHRINE/PF 0.5%-1:200,000 (30 ML) VIAL INFILTRATI ONE ×2 (15:13→16:00)
[2020-02-28] MEDS ORDERED: LIDOCAINE (1%) 10 MG/1 ML VIAL 20 ML MDV ONE (15:13)
[2020-02-28] MEDS ORDERED: SODIUM CHLORIDE 0.9% 1000 ML 1,000 ML ONE (15:30)
[2020-02-28] MEDS ORDERED: LIDOCAINE (1%) 10 MG/1 ML VIAL 20 ML MDV INFILTRATI ONE (16:00)
[2020-02-28] MEDS ORDERED: SODIUM CHLORIDE 0.9% IRR 1,500 ML BOTTLE IR ONE (16:02)
--- NOTE | 2020-02-28 16:12 | Progress Note ---
Assessment and Plan Cultures: 02/26/2020 blood culture: In process A/P: 54-year-old male with diabetes mellitus type 2, hypertension, peripheral vascular disease, active tobacco use, alcohol use was admitted to the hospital yesterday with complaints of worsening ulceration and drainage from his left foot. He has previously had his left great toe amputation done due to infection. He is known to us from his previous hospitalization in August 2019 that required surgical intervention on his left foot, MRI was negative for osteo at that time, now with: #Worsening left foot diabetic ulceration: No fever or leucytosis. Xray negative for osteomyelitis +gas. Art US +monophasic waves. CRP=5. #DM 2, h/o left great toe amputation: tight glycemic control #Peripheral vascular disease: awaits angio. Vascular following. Arterial doppler with monophasic flow. #Tobacco abuse: Recommend smoking cessation #Vancomycin allergy: Not a true allergy, patient reports "red man" syndrome from vancomycin that resolves with Benadryl. Recommend as needed Benadryl and infusing vancomycin at a slower infusion rate. Recs: to have debridement, please send deep cultures from debridement continue IV Cefepime and Vancomycin Will follow. Pastora Gongora MD Infectious Diseases [facility] ([facility]) M [phone] O [phone] Subjective Date of service: 02/28/20 Principal diagnosis: left foot wound Interval history: Feels ok NPO awaiting to go to OR Objective - Exam Narrative Exam: General appearance: Alert in NAD Eyes: anicteric sclerae, moist conjunctivae; no lid-lag; PERRLA HENT: Atraumatic; oropharynx clear Lungs: CTA, with normal respiratory effort and no intercostal retractions CV: RRR no murmur Abdomen: Soft, non-tender; no masses or hepatosplenomegaly Extremities: +left foot with dressings +heat +L groin LN Skin: No rash. Psych: Appropriate affect, alert and oriented to person, place and time. Neuro: alert and oriented x 3. Moving all extermities - Constitutional Vitals: Vital Signs Temp Pulse Resp BP Pulse Ox 98.6 F 88 18 138/89 96 02/28/20 11:45 02/28/20 11:45 02/28/20 11:45 02/28/20 11:45 02/28/20 11:45 Temperature -Last 24 Hours Temperature 98.6 F Temperature 98.8 F Temperature 98.1 F Temperature 98.4 F - Labs CBC & Chem 7: 02/27/20 05:58 02/28/20 04:42 Labs: Abnormal lab results 02/27/20 02/28/20 02/28/20 Range/Units 16:06 04:42 07:51 Glucose 212 H (75-100) mg/dL POC Glucose 192 H 195 H (70-105) C-Reactive Protein 5.00 H (0.00-1.30) mg/dL 02/28/20 Range/Units 12:24 Glucose (75-100) mg/dL POC Glucose 147 H (70-105) C-Reactive Protein (0.00-1.30) mg/dL
--- NOTE | 2020-02-28 16:49 | Operative Report ---
Operative Report Operative Report: Date: February 28, 2020 Surgeon: Jeanmarie Matute MD Procedure: Excision and drainage with debridement of left foot abscess Preop diagnosis: Left foot abscess Postop diagnosis: Same as preop Anesthesia: General anesthesia with LMA Specimen: Wound cultures Findings: An abscess cavity extending through forefoot and area of tissue of previous great toe amputation, with no sign of exposure to bone. EBL: Less than 10 mL Complication: None immediate Indication: Mr. Del Valle is a 54-year-old gentleman with a previous history of diabetes, chronic heavy smoking history, hypertension, and chronic wound care. Patient presented with a 3 to 4-day history of left foot pain and drainage from previous poorly healing wound on his left foot. Patient has been lost to follow-up at the wound care clinic. Patient signed informed consent for excision and drainage. Details of procedure: Patient is brought the OR suite in the supine position. General anesthesia was induced and LMA was placed. His left foot/lower leg was prepped and draped in sterile fashion. There was an obvious open chronic wound that was visible on the medial aspect of his foot. There was some necrotic changes as well as visible purulent drainage appearing to be coming from deeper within the wound. A May clamp was used to probe the area and a tract was found to go completely from the anterior part of the foot to the posterior part. This tract was opened up with sharp dissection. The abscess cavity was then traced for any extending pockets. All necrotic tissue, fibrinous exudate was excised. A curette was used to scrape the entirety of the wound bed. Upon examination there was noted to be no extension of the cavity to a bony surface. The wound measured approximately 4 x 6 cm and approximately 1 cm deep at its deepest portion. There was no significant extension of the cavity beyond the boundaries of the wound. There was noted to be a thick callus on the sole/ball of his foot adjacent to the wound. However when slightly unroofed there was no extension of the abscess in this area and it was decided to keep that area protected by keeping the callus intact. The wound bed was then irrigated with normal saline. Hemostasis was achieved with light electrocautery. And the wound was then packed with half-inch iodoform gauze followed by fluff Kerlix. Patient was awoken, LMA removed and he was taken to recovery in stable condition. All counts were correct.
--- NOTE | 2020-02-28 18:07 | Post Anesthesia Evaluation ---
- Post Anesthesia Evaluation Patient Participated: Yes Airway Patent: Yes Stable Respiratory Function: Yes Nausea/Vomiting: No Temp > 96.8F: Yes Pain Manageable: Yes Adequeate Hydration: Yes Anesthesia Complications: No
[2020-02-28] MEDS: NICOTINE 14 MG/24 HR PATCH TD SCH (21:27)
[2020-02-28] MEDS: MIRTAZAPINE 15 MG TAB PO SCH (21:27)
[2020-02-29] MEDS: diphenhydrAMINE 50 MG/ML VIAL IV PRN ×3 (00:25→23:53)
[2020-02-29] MEDS: VANCOMYCIN 1,500 MG in SODIUM CHLORIDE 0.9% 500 ML 500 ML IV SCH ×3 (00:26→16:59)
[2020-02-29] MEDS: HYDROcodone/ACETAMINOPHEN 10-325MG TAB PO PRN ×3 (00:30→21:24)
[2020-02-29] MEDS: CEFEPIME/NS 2 GM/100 ML 2 GM/100 ML BAG IV SCH ×2 (04:00→16:56)
[2020-02-29] MEDS: HYDROmorphone 1 MG/1 ML INJ IV PRN ×3 (04:00→19:04)
[2020-02-29 04:43] LABS: BUN/Creatinine Ratio 19; Blood Urea Nitrogen 15 mg/dL (9-20); Calcium 9.3 mg/dL (8.4-10.2); Hemolysis Index 8
[2020-02-29] MEDS: GABAPENTIN 300 MG CAP PO SCH ×3 (06:19→21:24)
[2020-02-29] MEDS: INSULIN LISPRO 100 UNIT/ML SUB-Q SCH ×4 (08:58→21:23)
[2020-02-29] MEDS: INSULIN NPH/REGULAR 70/30 INJ SUB-Q SCH ×2 (08:58→17:52)
[2020-02-29] MEDS: FAMOTIDINE 20 MG TAB PO SCH ×2 (09:00→21:24)
[2020-02-29] MEDS: amLODIPine 10 MG TAB PO SCH (09:12)
[2020-02-29] MEDS: FOLIC ACID 1 MG TAB PO SCH (09:12)
[2020-02-29] MEDS: THIAMINE 100 MG TAB PO SCH (09:12)
[2020-02-29 10:11] LABS: Basophils % (Auto) 0.6 % (0.0-1.8); Eosinophils # (Auto) 0.3 K/mm3 (0.0-0.4); Eosinophils % (Auto) 4.6 % (0.0-4.3); Hematocrit 44.5 % (35.5-45.6); Hemoglobin 15.1 gm/dl (11.8-15.2); Lymphocytes # (Auto) 1.8 K/mm3 (1.2-5.4); Lymphocytes % (Auto) 26.6 % (13.4-35.0); Mean Corpuscular HGB Conc 34 % (32-34); Mean Corpuscular Volume 91 fl (84-94); Monocytes # (Auto) 0.5 K/mm3 (0.0-0.8); Monocytes % (Auto) 7.8 % (0.0-7.3); Platelet Count 230 K/mm3 (140-440); Red Blood Count 4.92 M/mm3 (3.65-5.03); Red Cell Distribution Width 15.2 % (13.2-15.2)
--- NOTE | 2020-02-29 11:29 | Progress Note ---
Assessment and Plan Patient with large left foot wound Reviewed arteriogram films. Given his history of smoking, diabetes, and large wound he will need maximum blood flow to heal this wound. Discussed need for atherectomy and angioplasty of his SFA to improve arterial flow for wound healing. He expressed understanding of the plan and agrees to proceed. Subjective Date of service: 02/29/20 Principal diagnosis: left foot wound Interval history: Patient without complaints. Objective - Constitutional Vitals: Vital Signs - 12hr 02/29/20 02/29/20 02/29/20 00:30 02:00 03:37 Temperature 98 F Pulse Rate 82 82 Respiratory 18 16 Rate Blood Pressure Blood Pressure 147/86 [Left] O2 Sat by Pulse 100 Oximetry 02/29/20 02/29/20 04:00 07:46 Temperature 99.5 F Pulse Rate 82 Respiratory 18 18 Rate Blood Pressure 131/88 Blood Pressure [Left] O2 Sat by Pulse 95 Oximetry General appearance: Present: no acute distress - Respiratory Respiratory effort: normal - Cardiovascular Rhythm: regular Extremities: abnormal (left foot medial wound without purulent drainage, some necrotic tissue in the base, minimal bleeding) Extremity abnormal: other (right groin without hematoma) - Gastrointestinal General gastrointestinal: Present: soft - Labs CBC & Chem 7: 02/29/20 09:12 02/29/20 03:29 Labs: Abnormal lab results 02/28/20 02/28/20 02/28/20 Range/Units 12:24 17:20 21:40 [place] % (Auto) (0.0-7.3) % Eos % (Auto) (0.0-4.3) % Sodium (137-145) mmol/L Potassium (3.6-5.0) mmol/L Chloride (98-107) mmol/L POC Glucose 147 H 135 H 253 H (70-105) 02/29/20 02/29/20 02/29/20 Range/Units 03:29 08:03 09:12 [place] % (Auto) 7.8 H (0.0-7.3) % Eos % (Auto) 4.6 H (0.0-4.3) % Sodium 136 L (137-145) mmol/L Potassium 5.3 H (3.6-5.0) mmol/L Chloride 97.1 L (98-107) mmol/L POC Glucose 153 H (70-105) Medications & Allergies - Medications Allergies/Adverse Reactions: Allergies vancomycin Allergy (Verified 02/26/20 14:12) Rash Home Medications: Home Medications Medication Instructions Recorded Confirmed Last Taken Type Famotidine [Pepcid] 20 mg PO BID #28 tablet 05/18/18 02/26/20 08/21/19 21:00 Rx Folic Acid [Folvite] 1 mg PO QDAY #30 tablet 05/18/18 02/26/20 08/17/19 Rx Mirtazapine [Remeron 15mg TAB] 15 mg PO QHS #30 tablet 05/18/18 02/26/20 08/22/19 21:00 Rx Thiamine [Vitamin B-1] 100 mg PO QDAY #30 tablet 05/18/18 02/26/20 08/17/19 Rx amLODIPine 10 mg PO QDAY #30 tablet 05/18/18 02/26/20 08/21/19 21:00 Rx metFORMIN [Glucophage] 500 mg PO BID #60 tablet 05/18/18 02/26/20 08/21/19 21:00 Rx Apixaban [Eliquis] 5 mg PO Q12HR #60 tablet 09/03/19 02/26/20 Unknown Rx Gabapentin 300 mg PO Q8HR #90 capsule 09/03/19 02/26/20 Unknown Rx Albuterol INH(or & Nicu Only) 2 puff IH QID PRN 02/26/20 02/26/20 Unknown History [ProAir HFA Inhaler] HYDROcodone/APAP 10-325 [[place] 1 each PO Q6HR PRN 02/26/20 02/26/20 Unknown History 10/325] Active Medications: Generic Name Dose Route Start Last Admin Trade Name Freq PRN Reason Stop Dose Admin Acetaminophen 650 mg 02/27/20 02:35 02/28/20 22:59 Tylenol PO 650 mg Q4H PRN Administration Pain MILD(1-3)/Fever >100.5/MILES Acetaminophen/Hydrocodone Bitart 1 each 02/27/20 02:32 02/29/20 09:01 [place] 10/325 PO 1 each Q6HR PRN Administration Pain, Moderate (4-6) Albuterol 2.5 mg 02/27/20 02:44 Proventil IH Q4HRT PRN Shortness Of Breath Amlodipine Besylate 10 mg 02/27/20 10:00 02/29/20 09:12 Amlodipine PO 10 mg QDAY NADJA Administration Diphenhydramine HCl 25 mg 02/27/20 16:32 02/29/20 00:25 Benadryl IV 25 mg Q6H PRN Administration Rash Famotidine 20 mg 02/27/20 10:00 02/29/20 09:00 Pepcid PO 20 mg BID NADJA Administration Folic Acid 1 mg 02/27/20 10:00 02/29/20 09:12 Folvite PO 1 mg QDAY NADJA Administration Gabapentin 300 mg 02/27/20 06:00 02/29/20 06:19 Gabapentin PO 300 mg Q8HR NADJA Administration Hydromorphone HCl 0.5 mg 02/26/20 21:47 02/29/20 04:00 Dilaudid IV 0.5 mg Q3H PRN Administration Pain , Severe (7-10) Cefepime HCl 2 gm in 100 mls @ 200 mls/hr 02/27/20 16:00 02/29/20 04:00 Cefepime/Ns 2 Gm/100 Ml IV 200 mls/hr Q12H NADJA Administration Protocol Vancomycin HCl 1,500 mg/ 530 mls @ 212 mls/hr 02/28/20 00:00 02/29/20 08:59 Sodium Chloride IV 212 mls/hr Q8H NADJA Administration Insulin Human Isoph/Insulin Regular 15 unit 02/27/20 08:00 02/29/20 08:58 Humulin 70/30 SUB-Q 15 unit BIDDIAB NADJA Administration Insulin Human Lispro 0 unit 02/27/20 07:30 02/29/20 08:58 Humalog SUB-Q 2 unit ACHS NADJA Administration Protocol Mirtazapine 15 mg 02/27/20 22:00 02/28/20 21:27 Remeron PO 15 mg QHS NADJA Administration Nicotine 14 mg 02/27/20 01:40 02/28/20 21:27 Habitrol TD 14 mg QDAY@2200 NADJA Administration Ondansetron HCl 4 mg 02/27/20 02:35 Zofran IV Q8H PRN Nausea And Vomiting Sodium Chloride 10 ml 02/27/20 10:00 02/29/20 08:59 Sodium Chloride Flush Syringe 10 Ml IV 10 ml BID NADJA Administration Sodium Chloride 10 ml 02/27/20 02:35 05/12/20 04:00 Sodium Chloride Flush Syringe 10 Ml IV 10 ml PRN PRN Administration LINE FLUSH Thiamine HCl 100 mg 02/27/20 10:00 02/29/20 09:12 Vitamin B-1 PO 100 mg QDAY NADJA Administration
--- NOTE | 2020-02-29 13:11 | Progress Note ---
History Interval history: Left foot wound, cellulitis Surgeon consulted discussed with Dr. Matute, Surgeon For surgery tomorrow Hypertension Monitor BP Diabetes mellitus type 2 Fingerstick glucose qac and hs Hyperlipidemia Cont statin. Hyponatremia Monitor History of DVT Hold Eliquis because of surg tomorrow. peripheral vascular disease Consult [facility] Surgeon. 02/28/20 patient with left wound infection . for surgery today. patient seen by [facility] surg. For diagnostic venography as per vas surg. 02/29/2020. Patient with large left foot wound. Vascular surgery discussed need for atherectomy and angioplasty of his SFA to improve arterial flow for wound healing. He expressed understanding of the plan and agrees to proceed. Patient also to have debridement. Continue IV cefepime and vancomycin. ID and surgery following. Hospitalist Physical - Constitutional Vitals: Temp Pulse Resp BP Pulse Ox 97.5 F L 82 18 136/79 97 02/29/20 11:42 02/29/20 11:42 02/29/20 11:42 02/29/20 11:42 02/29/20 11:42 General appearance: Present: no acute distress - EENT Eyes: Present: PERRL, EOM intact ENT: hearing intact, clear oral mucosa, dentition normal - Neck Neck: Present: supple, normal ROM - Respiratory Respiratory effort: normal Respiratory: bilateral: CTA - Cardiovascular Rhythm: regular Heart Sounds: Present: S1 & S2. Absent: gallop, rub - Extremities Extremities: no ischemia, No edema, Full ROM - Abdominal General gastrointestinal: soft, non-tender, non-distended, normal bowel sounds - Integumentary Integumentary: Present: clear, warm, dry - Neurologic Neurologic: CNII-XII intact, moves all extremities Results - Labs CBC & Chem 7: 02/29/20 09:12 02/29/20 03:29 Labs: Laboratory Last Values WBC 6.8 K/mm3 (4.5-11.0) 02/29/20 09:12 RBC 4.92 M/mm3 (3.65-5.03) 02/29/20 09:12 Hgb 15.1 gm/dl (11.8-15.2) 02/29/20 09:12 Hct 44.5 % (35.5-45.6) 02/29/20 09:12 MCV 91 fl (84-94) 02/29/20 09:12 MCH 31 pg (28-32) 02/29/20 09:12 MCHC 34 % (32-34) 02/29/20 09:12 RDW 15.2 % (13.2-15.2) 02/29/20 09:12 Plt Count 230 K/mm3 (140-440) 02/29/20 09:12 Lymph % (Auto) 26.6 % (13.4-35.0) 02/29/20 09:12 [place] % (Auto) 7.8 % (0.0-7.3) H 02/29/20 09:12 Eos % (Auto) 4.6 % (0.0-4.3) H 02/29/20 09:12 Baso % (Auto) 0.6 % (0.0-1.8) 02/29/20 09:12 Lymph # 1.8 K/mm3 (1.2-5.4) 02/29/20 09:12 [place] # 0.5 K/mm3 (0.0-0.8) 02/29/20 09:12 Eos # 0.3 K/mm3 (0.0-0.4) 02/29/20 09:12 Baso # 0.0 K/mm3 (0.0-0.1) 02/29/20 09:12 Seg Neutrophils % 60.4 % (40.0-70.0) 02/29/20 09:12 Seg Neutrophils # 4.1 K/mm3 (1.8-7.7) 02/29/20 09:12 ESR 44 mm/Hr (0-20) 02/28/20 04:42 PT 13.0 Sec. (12.2-14.9) 02/26/20 14:12 INR 1.00 (0.87-1.13) 02/26/20 14:12 APTT 34.0 Sec. (24.2-36.6) 02/26/20 14:12 Sodium 136 mmol/L (137-145) L 02/29/20 03:29 Potassium 5.3 mmol/L (3.6-5.0) H 02/29/20 03:29 Chloride 97.1 mmol/L (98-107) L 02/29/20 03:29 Carbon Dioxide 28 mmol/L (22-30) 02/29/20 03:29 Anion Gap 16 mmol/L 02/29/20 03:29 BUN 15 mg/dL (9-20) 02/29/20 03:29 Creatinine 0.8 mg/dL (0.8-1.5) 02/29/20 03:29 Estimated GFR > 60 ml/min 02/29/20 03:29 BUN/Creatinine Ratio 19 % 02/29/20 03:29 Glucose 90 mg/dL (75-100) 02/29/20 03:29 POC Glucose 175 (70-105) H 02/29/20 11:58 Hemoglobin A1c 6.8 % (4-6) H 02/27/20 05:58 Calcium 9.3 mg/dL (8.4-10.2) 02/29/20 03:29 Total Bilirubin 0.50 mg/dL (0.1-1.2) 02/27/20 05:58 Direct Bilirubin < 0.2 mg/dL (0-0.2) 02/26/20 14:12 Indirect Bilirubin 0.2 mg/dL 02/26/20 14:12 AST 15 units/L (5-40) 02/27/20 05:58 ALT 21 units/L (7-56) 02/27/20 05:58 Alkaline Phosphatase 180 units/L (35-129) H 02/27/20 05:58 C-Reactive Protein 5.00 mg/dL (0.00-1.30) H 02/28/20 04:42 Total Protein 7.3 g/dL (6.3-8.2) 02/27/20 05:58 Albumin 3.6 g/dL (3.9-5) L 02/27/20 05:58 Albumin/Globulin Ratio 1.0 % 02/27/20 05:58 Nasal Screen MRSA (PCR) Positive (Negative) 02/27/20 Unknown Microbiology: Microbiology 02/26/20 14:12 Peripheral/Venous Blood Culture - Preliminary NO GROWTH AFTER 48 HOURS 02/26/20 14:12 Peripheral/Venous Blood Culture - Preliminary NO GROWTH AFTER 48 HOURS Jones/IV: Voiding Method Toilet IV Catheter Type [Right Hand] Peripheral IV IV Catheter Type [Right INT / Saline Lock Forearm] Active Medications - Current Medications Current Medications: Generic Name Dose Route Start Last Admin Trade Name Freq PRN Reason Stop Dose Admin Acetaminophen 650 mg 02/27/20 02:35 02/28/20 22:59 Tylenol PO 650 mg Q4H PRN Administration Pain MILD(1-3)/Fever >100.5/MILES Acetaminophen/Hydrocodone [place]art 1 each 02/27/20 02:32 02/29/20 09:01 [place] 10/325 PO 1 each Q6HR PRN Administration Pain, Moderate (4-6) Albuterol 2.5 mg 02/27/20 02:44 Proventil IH Q4HRT PRN Shortness Of Breath Amlodipine Besylate 10 mg 02/27/20 10:00 02/29/20 09:12 Amlodipine PO 10 mg QDAY NADJA Administration Diphenhydramine HCl 25 mg 02/27/20 16:32 02/29/20 00:25 Benadryl IV 25 mg Q6H PRN Administration Rash Famotidine 20 mg 02/27/20 10:00 02/29/20 09:00 Pepcid PO 20 mg BID NADJA Administration Folic Acid 1 mg 02/27/20 10:00 02/29/20 09:12 Folvite PO 1 mg QDAY NDAJA Administration Gabapentin 300 mg 02/27/20 06:00 02/29/20 06:19 Gabapentin PO 300 mg Q8HR NADJA Administration Hydromorphone HCl 0.5 mg 02/26/20 21:47 02/29/20 04:00 Dilaudid IV 0.5 mg Q3H PRN Administration Pain , Severe (7-10) Cefepime HCl 2 gm in 100 mls @ 200 mls/hr 02/27/20 16:00 02/29/20 04:00 Cefepime/Ns 2 Gm/100 Ml IV 200 mls/hr Q12H NADJA Administration Protocol Vancomycin HCl 1,500 mg/ 530 mls @ 212 mls/hr 02/28/20 00:00 02/29/20 08:59 Sodium Chloride IV 212 mls/hr Q8H NADJA Administration Insulin Human Isoph/Insulin Regular 15 unit 02/27/20 08:00 02/29/20 08:58 Humulin 70/30 SUB-Q 15 unit BIDDIAB NADJA Administration Insulin Human Lispro 0 unit 02/27/20 07:30 02/29/20 08:58 Humalog SUB-Q 2 unit ACHS NADJA Administration Protocol Mirtazapine 15 mg 02/27/20 22:00 02/28/20 21:27 Remeron PO 15 mg QHS NADJA Administration Nicotine 14 mg 02/27/20 01:40 02/28/20 21:27 Habitrol TD 14 mg QDAY@2200 NADJA Administration Ondansetron HCl 4 mg 02/27/20 02:35 Zofran IV Q8H PRN Nausea And Vomiting Sodium Chloride 10 ml 02/27/20 10:00 02/29/20 08:59 Sodium Chloride Flush Syringe 10 Ml IV 10 ml BID NADJA Administration Sodium Chloride 10 ml 02/27/20 02:35 02/29/20 04:00 Sodium Chloride Flush Syringe 10 Ml IV 10 ml PRN PRN Administration LINE FLUSH Thiamine HCl 100 mg 02/27/20 10:00 02/29/20 09:12 Vitamin B-1 PO 100 mg QDAY NADJA Administration
--- NOTE | 2020-02-29 13:19 | Progress Note ---
Assessment and Plan POD#1 s/p left foot abscess excision and drainage. Per wound care nurse recommendations will start daily dressings with dakins solution. She will make appointment to resume follow up care with out patient wound care clinic. Pt advised to stop smoking and continue to take his diabetes medications for tight glycemic control. No further surgical intervention warranted at this time. Subjective Date of service: 02/29/20 Narrative: No acute events overnight. Pt says that he began having pain in his foot around 2am this morning. Objective Vital Signs - 12hr 02/29/20 02/29/20 02/29/20 02:00 03:37 04:00 Temperature 98 F Pulse Rate 82 82 Respiratory 16 18 Rate Blood Pressure Blood Pressure 147/86 [Left] O2 Sat by Pulse 100 Oximetry 02/29/20 02/29/20 07:46 11:42 Temperature 99.5 F 97.5 F L Pulse Rate 82 82 Respiratory 18 18 Rate Blood Pressure 131/88 136/79 Blood Pressure [Left] O2 Sat by Pulse 95 97 Oximetry - General physical appearance no distress, no pain - Respiratory normal expansion, normal respiratory effort - Additional Exam Left wound examined with Wound Care nurse. Wound bed clean with slight fibrinous exudate and no drainage or foul odor. Granulation tissue also present. Tender to probing as expected. - Labs 02/29/20 09:12 02/29/20 03:29 Diabetes panel 02/29/20 Range/Units 03:29 Sodium 136 L (137-145) mmol/L Potassium 5.3 H (3.6-5.0) mmol/L Chloride 97.1 L (98-107) mmol/L Carbon Dioxide 28 (22-30) mmol/L BUN 15 (9-20) mg/dL Creatinine 0.8 (0.8-1.5) mg/dL Glucose 90 (75-100) mg/dL Calcium 9.3 (8.4-10.2) mg/dL Calcium panel 02/29/20 Range/Units 03:29 Calcium 9.3 (8.4-10.2) mg/dL Pituitary panel 02/29/20 Range/Units 03:29 Sodium 136 L (137-145) mmol/L Potassium 5.3 H (3.6-5.0) mmol/L Chloride 97.1 L (98-107) mmol/L Carbon Dioxide 28 (22-30) mmol/L BUN 15 (9-20) mg/dL Creatinine 0.8 (0.8-1.5) mg/dL Glucose 90 (75-100) mg/dL Calcium 9.3 (8.4-10.2) mg/dL Adrenal panel 02/29/20 Range/Units 03:29 Sodium 136 L (137-145) mmol/L Potassium 5.3 H (3.6-5.0) mmol/L Chloride 97.1 L (98-107) mmol/L Carbon Dioxide 28 (22-30) mmol/L BUN 15 (9-20) mg/dL Creatinine 0.8 (0.8-1.5) mg/dL Glucose 90 (75-100) mg/dL Calcium 9.3 (8.4-10.2) mg/dL
--- NOTE | 2020-02-29 16:37 | Progress Note ---
Assessment and Plan Cultures: 02/26/2020 blood culture: In process 02/28/2020 wound Staph aureus A/P: 54-year-old male with diabetes mellitus type 2, hypertension, peripheral vascular disease, active tobacco use, alcohol use was admitted to the hospital yesterday with complaints of worsening ulceration and drainage from his left foot. He has previously had his left great toe amputation done due to infection. He is known to us from his previous hospitalization in August 2019 that required surgical intervention on his left foot, MRI was negative for osteo at that time, now with: #Left foot diabetic ulceration: No fever or leucytosis. Xray negative for osteomyelitis +gas. Art US +monophasic waves. CRP=5. S/p Excision and drainage with debridement of left foot abscess. Findings with an abscess cavity extending through forefoot and area of tissue of previous great toe amputation, with no sign of exposure to bone. #DM 2, h/o left great toe amputation: tight glycemic control #Peripheral vascular disease: awaits angio. Vascular following. Arterial doppler with monophasic flow. #Tobacco abuse: Recommend smoking cessation #Vancomycin allergy: Not a true allergy, patient reports "red man" syndrome from vancomycin that resolves with Benadryl. Recommend as needed Benadryl and infusing vancomycin at a slower infusion rate. Recs: f/u wound culture continue IV Cefepime and Vancomycin fro now Anticipate to d/c on dalvance 1000 mg IV x 1 followed by 500 mg IV a week later (2 doses no need for PICC) will send order to health system, otherwise will arrange IV cefazolin or vancomycin for 2 weeks with a PICC line. Will follow. Pastora Gongora MD Infectious Diseases Transplant Case Manager [facility] M [phone] O [phone] Subjective Date of service: 02/29/20 Principal diagnosis: left foot wound Interval history: Feels ok went to OR yest tmax 100.6 Objective - Exam Narrative Exam: General appearance: Alert in NAD Eyes: anicteric sclerae, moist conjunctivae; no lid-lag; PERRLA HENT: Atraumatic; oropharynx clear Lungs: CTA, with normal respiratory effort and no intercostal retractions CV: RRR no murmur Abdomen: Soft, non-tender; no masses or hepatosplenomegaly Extremities: +left foot surg wound with devitalized tissue Skin: No rash. Psych: Appropriate affect, alert and oriented to person, place and time. Neuro: alert and oriented x 3. Moving all extermities - Constitutional Vitals: Vital Signs Temp Pulse Resp BP Pulse Ox 97.5 F L 82 18 136/79 97 02/29/20 11:42 02/29/20 11:42 02/29/20 11:42 02/29/20 11:42 02/29/20 11:42 Temperature -Last 24 Hours Temperature 97.5 F Temperature 99.5 F Temperature 98 F Temperature 100.6 F Temperature 99.4 F Temperature 97.6 F - Labs CBC & Chem 7: 02/29/20 09:12 02/29/20 03:29 Labs: Abnormal lab results 02/28/20 02/28/20 02/29/20 Range/Units 17:20 21:40 03:29 [place] % (Auto) (0.0-7.3) % Eos % (Auto) (0.0-4.3) % Sodium 136 L (137-145) mmol/L Potassium 5.3 H (3.6-5.0) mmol/L Chloride 97.1 L (98-107) mmol/L POC Glucose 135 H 253 H (70-105) 02/29/20 02/29/20 02/29/20 Range/Units 08:03 09:12 11:58 [place] % (Auto) 7.8 H (0.0-7.3) % Eos % (Auto) 4.6 H (0.0-4.3) % Sodium (137-145) mmol/L Potassium (3.6-5.0) mmol/L Chloride (98-107) mmol/L POC Glucose 153 H 175 H (70-105)
[2020-02-29] MEDS: NICOTINE 14 MG/24 HR PATCH TD SCH (21:23)
[2020-02-29] MEDS: MIRTAZAPINE 15 MG TAB PO SCH (21:24)
[2020-02-29] MEDS: SODIUM HYPOCHLORITE, DAKIN'S 1/2 STRENGTH (0.25%) 473 ML TOPICAL SOLN TP SCH (22:47)
[2020-03-01] MEDS: VANCOMYCIN 1,500 MG in SODIUM CHLORIDE 0.9% 500 ML 500 ML IV SCH ×4 (00:26→23:06)
[2020-03-01] MEDS: CEFEPIME/NS 2 GM/100 ML 2 GM/100 ML BAG IV SCH (03:47)
[2020-03-01] MEDS: HYDROmorphone 1 MG/1 ML INJ IV PRN ×4 (03:47→20:15)
[2020-03-01] MEDS: GABAPENTIN 300 MG CAP PO SCH ×3 (05:51→21:36)
[2020-03-01] MEDS: INSULIN NPH/REGULAR 70/30 INJ SUB-Q SCH ×2 (08:32→17:29)
[2020-03-01] MEDS: INSULIN LISPRO 100 UNIT/ML SUB-Q SCH ×3 (08:33→17:28)
[2020-03-01] MEDS ORDERED: SODIUM CHLORIDE 0.9% 500 ML 500 ML ONE (08:56)
[2020-03-01] MEDS ORDERED: HEPARIN 10,000 UNITS/10 ML VIAL ONE (08:56)
[2020-03-01] MEDS ORDERED: HEPARIN/NS 5000 UNIT/500ML 1,000 ML IR ONE (08:56)
[2020-03-01] MEDS ORDERED: LIDOCAINE (2%) 20 MG/1 ML VIAL 20 ML MDV INFILTRATI ONE (08:56)
[2020-03-01] MEDS: amLODIPine 10 MG TAB PO SCH (09:14)
[2020-03-01] MEDS: THIAMINE 100 MG TAB PO SCH (09:15)
[2020-03-01] MEDS: SODIUM HYPOCHLORITE, DAKIN'S 1/2 STRENGTH (0.25%) 473 ML TOPICAL SOLN TP SCH ×2 (09:15→22:59)
[2020-03-01] MEDS: FAMOTIDINE 20 MG TAB PO SCH ×2 (09:15→21:36)
[2020-03-01] MEDS: FOLIC ACID 1 MG TAB PO SCH (09:15)
[2020-03-01] MEDS: MIDAZOLAM 2 MG/2 ML INJ ONE ×3 (09:46→10:21)
[2020-03-01] MEDS: fentaNYL 100 MCG/2 ML INJ ONE ×5 (09:46→10:44)
[2020-03-01] MEDS ORDERED: MIDAZOLAM 2 MG/2 ML INJ ONE (10:32)
--- NOTE | 2020-03-01 11:04 | Operative Report ---
Operative Report Operative Report: Date of Procedure: 03/01/2020 Pre-operative Diagnosis: Peripheral Vascular Disease with Nonhealing Left Diabet ic Foot Wound Post-operative Diagnosis: Same Procedure(s): 1. Ultrasound-Guided Access Right Common Femoral Artery 2. Atherectomy with Angioplasty of Left SFA with Turbo Hawk LX Directional Atherectomy Catheter and 7.0 x 80 IN.PACT Drug-Coated Balloon in the SFA and 6.0 x 120 IN.PACT Drug-Coated Balloon In the Popliteal Artery 3. Closure of Right Femoral Arteriotomy with 6 Latvian Angio-Seal 4. Monitored Moderate Sedation (Total Anesthesia Time 58 Minutes) 5. Radiologic Supervision with Interpretation Surgeon: Celso Molina M.D. Wire Machine Cutter: None Anesthesia: Monitored Moderate Sedation (Total Anesthesia Time 58 Minutes) EBL: Minimal Counts: Correct Complications: None Condition: Stable Specimen: None Indication: The patient is a 54-year-old male with a history of diabetes, tobacco abuse, and peripheral vascular disease who had a previous diagnostic angiogram demonstrating diffuse disease in his SFA and popliteal arteries ranging from 30 to 50% with tandem lesions. Given his recently debrided wound and the need for optimal blood flow for wound healing he is in need of intervention to improve his blood flow. He was given the risk, benefits, and alternative procedures and consented to the procedure. Angiogram Findings: The left SFA and popliteal artery had multiple areas of stenosis in tandem ranging from 30 to 50%. After intervention there was less than 15% residual stenosis with brisk flow of contrast and no evidence of dissection. There was no evidence of distal emboli at the completion of the case. Description of Procedure: The patient was brought to the [facility] and laid in supine position. After a timeout was performed his right groin was prepped and draped in normal sterile fashion. Ultrasound was used to identify the right common femoral artery and confirm patency. Once patency was confirmed the overlying skin and soft tissue was anesthetized with lidocaine. A small stab incision was made with an 11 blade and a curved hemostat was used to bluntly dissect down to the anterior surface of the right common femoral artery. A 21-gauge micropuncture needle was used with ultrasound guidance into the right common femoral artery and a 0.018 micropuncture wire was advanced into the artery under fluoroscopy. The micropuncture wire was removed and a micropuncture sheath was advanced over the wire by Seldinger technique. A 0.035 Bentson wire was advanced to the aorta and the micropuncture sheath was exchanged for 5 Latvian sheath by Seldinger technique. An Omni Flush catheter was used with the Bentson wire to advance up and over the bifurcation and the 5 Latvian sheath was exchanged for a 7 Latvian 45 cm destination sheath by Seldinger technique. At this point the patient was systemically heparinized with 5000 units of heparin IV. A vertebral catheter was then advanced into the distal popliteal artery and the Bentson wire was exchanged for a 0.014 Spider Filter Wire. Angiogram was performed to identify the areas of stenosis and the Clearwire LX directional Atherectomy Catheter was used to perform atherectomy of the SFA and popliteal artery lesions. After performing atherectomy of the areas of concern I used a vertebral catheter to retrieve the filter wire and then advanced a Bentson wire into the distal popliteal artery. I then used a 6.0 x 120 IN.PACT Drug-Coated Balloon to perform angioplasty of the popliteal artery and then a 7.0 x 80 IN.PACT Drug- Coated Balloon was used to perform angioplasty of the SFA resulting in less than 15% residual stenosis in those arteries. I then pulled the sheath back into the right external iliac artery and advanced the wire into the aorta. I initially attempted to use a Pro-glide closure device to close the right femoral arteriotomy however I was unable to advance the device into the artery so I used a 6 Latvian Angio-Seal to close the arteriotomy. A sterile dressing and pressure dressing were then applied to the right groin. The patient tolerated the procedure well and was transported to his room in stable condition.
[2020-03-01] MEDS ORDERED: CLOPIDOGREL 300 MG TAB PO ONE ×2 (11:17→12:00)
[2020-03-01] MEDS: diphenhydrAMINE 50 MG/ML VIAL IV PRN ×3 (11:46→23:00)
[2020-03-01] MEDS: ASPIRIN EC 81 MG TAB PO SCH (11:49)
--- NOTE | 2020-03-01 12:04 | Progress Note ---
History Interval history: Left foot wound, cellulitis Surgeon consulted discussed with Dr. Matute, Surgeon For surgery tomorrow Hypertension Monitor BP Diabetes mellitus type 2 Fingerstick glucose qac and hs Hyperlipidemia Cont statin. Hyponatremia Monitor History of DVT Hold Eliquis because of surg tomorrow. peripheral vascular disease Consult [facility] Surgeon. 02/28/20 patient with left wound infection . for surgery today. patient seen by [facility] surg. For diagnostic venography as per vas surg. 02/29/2020. Patient with large left foot wound. Vascular surgery discussed need for atherectomy and angioplasty of his SFA to improve arterial flow for wound healing. He expressed understanding of the plan and agrees to proceed. Patient also to have debridement. Continue IV cefepime and vancomycin. ID and surgery following. 03/01/2020. Patient with peripheral vascular disease with nonhealing left diabetic foot wound. Patient had previous diagnostic angiogram demonstrating diffuse disease in his SFA and popliteal arteries ranging from 30 to 50% with tandem lesions. Patient underwent atherectomy and angioplasty of left SFA toda y. The left SFA and popliteal artery had multiple areas of stenosis in tandem ranging from 30 to 50%. After intervention there was less than 15% residual stenosis with brisk flow of contrast and no evidence of dissection. There was no evidence of distal emboli at the completion of the case. ID recommends discharge with antibiotics of Dalvance 1000 mg IV x1 followed by 500 mg IV a week later (2 doses no need for PICC). If this cannot be arranged patient will need PICC line and 2 weeks of IV cefazolin or vancomycin Hospitalist Physical - Constitutional Vitals: Temp Pulse Resp BP Pulse Ox 97.6 F 82 18 159/100 95 03/01/20 03:51 03/01/20 03:51 03/01/20 03:51 03/01/20 03:51 03/01/20 03:51 General appearance: Present: no acute distress Results - Labs CBC & Chem 7: 02/29/20 09:12 02/29/20 03:29 Labs: Laboratory Last Values WBC 6.8 K/mm3 (4.5-11.0) 02/29/20 09:12 RBC 4.92 M/mm3 (3.65-5.03) 02/29/20 09:12 Hgb 15.1 gm/dl (11.8-15.2) 02/29/20 09:12 Hct 44.5 % (35.5-45.6) 02/29/20 09:12 MCV 91 fl (84-94) 02/29/20 09:12 MCH 31 pg (28-32) 02/29/20 09:12 MCHC 34 % (32-34) 02/29/20 09:12 RDW 15.2 % (13.2-15.2) 02/29/20 09:12 Plt Count 230 K/mm3 (140-440) 02/29/20 09:12 Lymph % (Auto) 26.6 % (13.4-35.0) 02/29/20 09:12 [place] % (Auto) 7.8 % (0.0-7.3) H 02/29/20 09:12 Eos % (Auto) 4.6 % (0.0-4.3) H 02/29/20 09:12 Baso % (Auto) 0.6 % (0.0-1.8) 02/29/20 09:12 Lymph # 1.8 K/mm3 (1.2-5.4) 02/29/20 09:12 [place] # 0.5 K/mm3 (0.0-0.8) 02/29/20 09:12 Eos # 0.3 K/mm3 (0.0-0.4) 02/29/20 09:12 Baso # 0.0 K/mm3 (0.0-0.1) 02/29/20 09:12 Seg Neutrophils % 60.4 % (40.0-70.0) 02/29/20 09:12 Seg Neutrophils # 4.1 K/mm3 (1.8-7.7) 02/29/20 09:12 ESR 44 mm/Hr (0-20) 02/28/20 04:42 PT 13.0 Sec. (12.2-14.9) 02/26/20 14:12 INR 1.00 (0.87-1.13) 02/26/20 14:12 APTT 34.0 Sec. (24.2-36.6) 02/26/20 14:12 Sodium 136 mmol/L (137-145) L 02/29/20 03:29 Potassium 5.3 mmol/L (3.6-5.0) H 02/29/20 03:29 Chloride 97.1 mmol/L (98-107) L 02/29/20 03:29 Carbon Dioxide 28 mmol/L (22-30) 02/29/20 03:29 Anion Gap 16 mmol/L 02/29/20 03:29 BUN 15 mg/dL (9-20) 02/29/20 03:29 Creatinine 0.8 mg/dL (0.8-1.5) 02/29/20 03:29 Estimated GFR > 60 ml/min 02/29/20 03:29 BUN/Creatinine Ratio 19 % 02/29/20 03:29 Glucose 90 mg/dL (75-100) 02/29/20 03:29 POC Glucose 119 (70-105) H 03/01/20 11:39 Hemoglobin A1c 6.8 % (4-6) H 02/27/20 05:58 Calcium 9.3 mg/dL (8.4-10.2) 02/29/20 03:29 Total Bilirubin 0.50 mg/dL (0.1-1.2) 02/27/20 05:58 Direct Bilirubin < 0.2 mg/dL (0-0.2) 02/26/20 14:12 Indirect Bilirubin 0.2 mg/dL 02/26/20 14:12 AST 15 units/L (5-40) 02/27/20 05:58 ALT 21 units/L (7-56) 02/27/20 05:58 Alkaline Phosphatase 180 units/L (35-129) H 02/27/20 05:58 C-Reactive Protein 5.00 mg/dL (0.00-1.30) H 02/28/20 04:42 Total Protein 7.3 g/dL (6.3-8.2) 02/27/20 05:58 Albumin 3.6 g/dL (3.9-5) L 02/27/20 05:58 Albumin/Globulin Ratio 1.0 % 02/27/20 05:58 Nasal Screen MRSA (PCR) Positive (Negative) 02/27/20 Unknown Vancomycin Trough 16.9 ug/mL (5.0-20.0) 02/29/20 16:40 Microbiology: Microbiology 02/28/20 Unknown Foot - Left Surgical Culture - Preliminary Methicillin Resist S. Aureus 02/26/20 14:12 Peripheral/Venous Blood Culture - Preliminary NO GROWTH AFTER 72 HOURS 02/26/20 14:12 Peripheral/Venous Blood Culture - Preliminary NO GROWTH AFTER 72 HOURS Jones/IV: Voiding Method Toilet IV Catheter Type [Right Hand] Peripheral IV IV Catheter Type [Right INT / Saline Lock Forearm] Active Medications - Current Medications Current Medications: Generic Name Dose Route Start Last Admin Trade Name Freq PRN Reason Stop Dose Admin Acetaminophen 650 mg 02/27/20 02:35 02/28/20 22:59 Tylenol PO 650 mg Q4H PRN Administration Pain MILD(1-3)/Fever >100.5/MILES Acetaminophen/Hydrocodone Bitart 1 each 02/27/20 02:32 02/29/20 21:24 Hardwick 10/325 PO 1 each Q6HR PRN Administration Pain, Moderate (4-6) Albuterol 2.5 mg 02/27/20 02:44 Proventil IH Q4HRT PRN Shortness Of Breath Amlodipine Besylate 10 mg 02/27/20 10:00 03/01/20 09:14 Amlodipine PO Not Given QDAY NADJA Aspirin 81 mg 03/01/20 12:00 03/01/20 11:49 Halfprin Ec PO 81 mg QDAY NADJA Administration Clopidogrel Bisulfate 75 mg 03/02/20 10:00 Plavix PO QDAY NADJA Diphenhydramine HCl 25 mg 02/27/20 16:32 03/01/20 11:46 Benadryl IV 25 mg Q6H PRN Administration Rash Famotidine 20 mg 02/27/20 10:00 03/01/20 09:15 Pepcid PO Not Given BID NADJA Folic Acid 1 mg 02/27/20 10:00 03/01/20 09:15 Folvite PO Not Given QDAY NADJA Gabapentin 300 mg 02/27/20 06:00 03/01/20 05:51 Gabapentin PO 300 mg Q8HR NADJA Administration Hydromorphone HCl 0.5 mg 02/26/20 21:47 03/01/20 08:32 Dilaudid IV 0.5 mg Q3H PRN Administration Pain , Severe (7-10) Cefepime HCl 2 gm in 100 mls @ 200 mls/hr 02/27/20 16:00 03/01/20 03:47 Cefepime/Ns 2 Gm/100 Ml IV 03/11/20 15:59 200 mls/hr Q12H NADJA Administration Protocol Vancomycin HCl 1,500 mg/ 530 mls @ 212 mls/hr 02/28/20 00:00 03/01/20 11:34 Sodium Chloride IV 03/11/20 00:00 212 mls/hr Q8H NADJA Administration Insulin Human Isoph/Insulin Regular 15 unit 02/27/20 08:00 03/01/20 08:32 Humulin 70/30 SUB-Q 15 unit BIDDIAB NADJA Administration Insulin Human Lispro 0 unit 02/27/20 07:30 03/01/20 11:35 Humalog SUB-Q Not Given ACHS [facility] Protocol Mirtazapine 15 mg 02/27/20 22:00 02/29/20 21:24 Remeron PO 15 mg QHS NADJA Administration Nicotine 14 mg 02/27/20 01:40 02/29/20 21:23 Habitrol TD 14 mg QDAY@2200 NADJA Administration Ondansetron HCl 4 mg 02/27/20 02:35 Zofran IV Q8H PRN Nausea And Vomiting Sodium Chloride 10 ml 02/27/20 10:00 03/01/20 11:34 Sodium Chloride Flush Syringe 10 Ml IV 10 ml BID NADJA Administration Sodium Chloride 10 ml 02/27/20 02:35 02/29/20 04:00 Sodium Chloride Flush Syringe 10 Ml IV 10 ml PRN PRN Administration LINE FLUSH Sodium Hypochlorite 1 applic 02/29/20 22:00 03/01/20 09:15 Dakin's Half Strength TP Not Given BID [facility] Thiamine HCl 100 mg 02/27/20 10:00 03/01/20 09:15 Vitamin B-1 PO Not Given QDAY [facility]
[2020-03-01 12:56] LABS: Hematocrit 45.9 % (35.5-45.6); Hemoglobin 15.5 gm/dl (11.8-15.2); Mean Corpuscular HGB Conc 34 % (32-34); Mean Corpuscular Volume 91 fl (84-94); Platelet Count 229 K/mm3 (140-440); Red Blood Count 5.07 M/mm3 (3.65-5.03); Red Cell Distribution Width 15.4 % (13.2-15.2)
[2020-03-01 13:12] LABS: BUN/Creatinine Ratio 17; Blood Urea Nitrogen 12 mg/dL (9-20); Calcium 9.1 mg/dL (8.4-10.2); Hemolysis Index 8
--- NOTE | 2020-03-01 14:47 | Progress Note ---
Assessment and Plan Cultures: 02/26/2020 blood culture: In process 02/28/2020 wound MRSA A/P: 54-year-old male with diabetes mellitus type 2, hypertension, peripheral vascular disease, active tobacco use, alcohol use was admitted to the hospital yesterday with complaints of worsening ulceration and drainage from his left foot. He has previously had his left great toe amputation done due to infection. He is known to us from his previous hospitalization in August 2019 that required surgical intervention on his left foot, MRI was negative for osteo at that time, now with: #Left foot diabetic ulceration: No fever or leukocytosis. Xray negative for osteomyelitis +gas. Art US +monophasic waves. CRP=5. S/p Excision and drainage with debridement of left foot abscess. Findings with an abscess cavity extending through forefoot and area of tissue of previous great toe amputation, with no sign of exposure to bone. Wound cx MRSA> #DM 2, h/o left great toe amputation: tight glycemic control #Peripheral vascular disease: awaits angio. Vascular following. Arterial doppler with monophasic flow. #Tobacco abuse: Recommend smoking cessation #Vancomycin allergy: Not a true allergy, patient reports "red man" syndrome from vancomycin that resolves with Benadryl. Recommend as needed Benadryl and infusing vancomycin at a slower infusion rate. Recs: stop Cefepime continue Vancomycin Anticipate to d/c vancomycin 1.5 gm IV q 12 hour total 3 weeks for 2 weeks with a PICC line till 03/20/2020. Keep vancomycin trough 10-15 mcg/mL. Sent to case worker. May need to be extended. Place PICC ID clinic f/u in 2 weeks Will follow. Pastora Gongora MD Infectious Diseases Geomagnetist [facility] ([facility]) M [phone] O [phone] Subjective Date of service: 03/01/20 Principal diagnosis: left foot wound Interval history: Feels ok, minimal pain, no fever for 24h Objective - Exam Narrative Exam: General appearance: Alert in NAD Eyes: anicteric sclerae, moist conjunctivae; no lid-lag; PERRLA HENT: Atraumatic; oropharynx clear Lungs: CTA, with normal respiratory effort and no intercostal retractions CV: RRR no murmur Abdomen: Soft, non-tender; no masses or hepatosplenomegaly Extremities: +left foot surg wound with devitalized tissue Skin: No rash. Psych: Appropriate affect, alert and oriented to person, place and time. Neuro: alert and oriented x 3. Moving all extermities - Constitutional Vitals: Vital Signs Temp Pulse Resp BP Pulse Ox 97.9 F 84 16 136/88 97 03/01/20 11:28 03/01/20 12:00 03/01/20 11:28 03/01/20 11:28 03/01/20 11:28 Temperature -Last 24 Hours Temperature 97.9 F Temperature 97.6 F Temperature 98.5 F Temperature 98.6 F Temperature 98.5 F - Labs CBC & Chem 7: 03/01/20 12:40 03/01/20 12:40 Labs: Abnormal lab results 02/29/20 02/29/20 03/01/20 Range/Units 17:00 21:01 08:44 RBC (3.65-5.03) M/mm3 Hgb (11.8-15.2) gm/dl Hct (35.5-45.6) % RDW (13.2-15.2) % Potassium (3.6-5.0) mmol/L Creatinine (0.8-1.5) mg/dL Glucose (75-100) mg/dL POC Glucose 135 H 180 H 147 H (70-105) 03/01/20 03/01/20 03/01/20 Range/Units 11:39 12:40 12:40 RBC 5.07 H (3.65-5.03) M/mm3 Hgb 15.5 H (11.8-15.2) gm/dl Hct 45.9 H (35.5-45.6) % RDW 15.4 H (13.2-15.2) % Potassium 5.1 H (3.6-5.0) mmol/L Creatinine 0.7 L (0.8-1.5) mg/dL Glucose 116 H (75-100) mg/dL POC Glucose 119 H (70-105)
[2020-03-01 14:48] LABS: Band Neutrophils # (Manual) 0.4 K/mm3; Myelocytes # (Manual) 0.1 K/mm3; Platelet Estimate Consistent w Auto; RBC Morphology Normal; Total Cells Counted 100
[2020-03-01] MEDS: HYDROcodone/ACETAMINOPHEN 10-325MG TAB PO PRN ×2 (16:02→23:06)
[2020-03-01] MEDS: MIRTAZAPINE 15 MG TAB PO SCH (21:36)
[2020-03-01] MEDS: NICOTINE 14 MG/24 HR PATCH TD SCH (21:36)
[2020-03-02] MEDS: INSULIN LISPRO 100 UNIT/ML SUB-Q SCH ×4 (00:24→17:13)
[2020-03-02] MEDS: HYDROmorphone 1 MG/1 ML INJ IV PRN ×4 (02:35→14:13)
[2020-03-02] MEDS: GABAPENTIN 300 MG CAP PO SCH ×2 (05:50→14:12)
[2020-03-02] MEDS: FOLIC ACID 1 MG TAB PO SCH (09:15)
[2020-03-02] MEDS: diphenhydrAMINE 50 MG/ML VIAL IV PRN ×2 (09:15→14:13)
[2020-03-02] MEDS: amLODIPine 10 MG TAB PO SCH (09:15)
[2020-03-02] MEDS: INSULIN NPH/REGULAR 70/30 INJ SUB-Q SCH (09:16)
[2020-03-02] MEDS: ASPIRIN EC 81 MG TAB PO SCH (09:16)
[2020-03-02] MEDS: THIAMINE 100 MG TAB PO SCH ×2 (09:16→09:30)
[2020-03-02] MEDS: FAMOTIDINE 20 MG TAB PO SCH (09:18)
[2020-03-02] MEDS: HYDROcodone/ACETAMINOPHEN 10-325MG TAB PO PRN (09:32)
[2020-03-02] MEDS ORDERED: CLOPIDOGREL 75 MG TAB PO SCH (10:00)
--- NOTE | 2020-03-02 10:34 | Discharge Summary ---
Providers - Providers Date of Admission: 02/26/20 17:56 Date of discharge: 03/02/20 Attending physician: AMBER HOROWITZ 02/27/20 02:35 Consult to Physician [CONS] Routine Comment: Consulting Provider: CHELSEA VARGHESE Physician Instructions: Reason For Exam: Right foot cellulitis/ulcer/abscess 02/27/20 02:44 Consult to Wound/ET Nurse [CONS] Routine Reason For Exam: wound eval 02/27/20 02:45 Consult to Physician [CONS] Routine Comment: Consulting Provider: MARTÍN SIMON Physician Instructions: Reason For Exam: Left foot infection 02/27/20 09:13 Consult to Physician [CONS] Routine Comment: Consulting Provider: DYLAN HASTINGS Physician Instructions: Reason For Exam: Peripheral vscular disease 02/29/20 17:04 Consult to Case Management [CONS] Stat Services Needed at Discharge: Other Notified:: 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 03/01/20 13:25 Consult to PICC Line RN [CONS] Routine Reason For Exam: IV abx Type Line:: PICC 03/01/20 14:48 Consult to Case Management [CONS] Stat Services Needed at Discharge: Other Notified:: longwall machine operator helper Additional Physician Instructions: [facility] ([facility]) [address] [facility] [address] [place] [address] OUTPATIENT PARENTERAL ANTIBIOTIC THERAPY (OPAT) ORDERS Diagnoses: Deep MRSA abscess Administer: vancomycin 1.5 gm IV q 12 hour total 3 weeks till 03/20/2020. Keep vancomycin trough 10-15 mcg/mL. Remove PICC line after last dose unless otherwise instructed. Line: Maintain IV access with weekly dressing changes and locks per protocol. Labs: Every Friday CBC, AST, ALT, Creatinine, vancomcyin trough. Please fax results to [phone] and call [phone] for critical lab results. Pastora Rueda MD Infectious Diseases [facility] ([facility]) O: [phone] F: [phone] Primary care physician: [facility], Hospitalization Reason for admission: Left foot ulcer Condition: Stable Hospital course: 54-year-old male with diabetes mellitus type 2, hypertension, peripheral vascular disease, active tobacco use, alcohol use was admitted to the hospital on 02/26/2020 with complaints of worsening ulceration and drainage from his left foot. He has previously had his left great toe amputation done due to infection. The patient has had previous hospitalization in August 2019 that required surgical intervention on his left foot, MRI was negative for osteo at that time. The patient was admitted with diagnosis of Left foot diabetic ulceration: Xray negative for osteomyelitis +gas. Art US +monophasic waves. CRP=5. The patient underwent s/p Excision and drainage with debridement of left foot abscess with surgery consultation. Findings with an abscess cavity extending through forefoot and area of tissue of previous great toe amputation, with no sign of exposure to bone. Wound cx MRSA> Hospital course: 02/28/20 patient with left wound infection . for surgery today. patient seen by [facility] surg. For diagnostic venography as per vasc surg. 02/29/2020. Patient with large left foot wound. Vascular surgery discussed need for atherectomy and angioplasty of his SFA to improve arterial flow for wound healing. He expressed understanding of the plan and agrees to proceed. Patient also to have debridement. Continue IV cefepime and vancomycin. ID and surgery following. 03/01/2020. Patient with peripheral vascular disease with nonhealing left diabetic foot wound. Patient had previous diagnostic angiogram demonstrating diffuse disease in his SFA and popliteal arteries ranging from 30 to 50% with tandem lesions. Vascular surgery evaluated the patient and patient underwent atherectomy and angioplasty of left SFA today. The left SFA and popliteal artery had multiple areas of stenosis in tandem ranging from 30 to 50%. After intervention there was less than 15% residual stenosis with brisk flow of contrast and no evidence of dissection. There was no evidence of distal emboli at the completion of the case. ID recommends discharge with antibiotics of Dalvance 1000 mg IV x1 followed by 500 mg IV a week later (2 doses no need for PICC). If this cannot be arranged patient will need PICC line and 2 weeks of IV cefazolin or vancomycin. The Dalvance could not be arranged therefore ID recommends placement of PICC line which will be completed today. Patient will discharge after PEG placement and have vancomycin 1.5 gm IV q 12 hour total 3 weeks for 2 weeks with a PICC line till 03/20/2020. Keep vancomycin trough 10-15 mcg/mL. Dedicated discharge time 35 minutes. Disposition: [id number] HOME UNDER HOME [facility] Time spent for discharge: 35 - Discharge Diagnoses (1) Diabetic foot infection Status: Acute Core Measure Documentation - Palliative Care Palliative Care/ Comfort Measures: Not Applicable - Core Measures Any of the following diagnoses?: none Exam - Constitutional Vitals: Temp Pulse Resp BP Pulse Ox 32.1 F L 90 20 141/89 97 03/02/20 08:19 03/02/20 08:19 03/02/20 08:19 03/02/20 08:19 03/02/20 08:19 General appearance: Present: no acute distress, well-nourished - EENT Eyes: Present: PERRL ENT: hearing intact, clear oral mucosa - Neck Neck: Present: supple, normal ROM - Respiratory Respiratory effort: normal Respiratory: bilateral: CTA - Cardiovascular Heart Sounds: Present: S1 & S2. Absent: rub, click - Extremities Extremities: pulses symmetrical, No edema Peripheral Pulses: within normal limits - Abdominal General gastrointestinal: Present: soft, non-tender, non-distended, normal bowel sounds Male genitourinary: Present: normal - Integumentary Integumentary: Present: clear, warm, dry - Musculoskeletal Musculoskeletal: gait normal, strength equal bilaterally - Psychiatric Psychiatric: appropriate mood/affect, intact judgment & insight - Neurologic Neurologic: CNII-XII intact, moves all extremities Plan Activity: advance as tolerated Weight Bearing Status: Weight Bear as Tolerated Diet: diabetic Wound: per your surgeon's advice Special Instructions: physical therapy, home health RN [facility] [place] [Primary Care Provider] - 3-5 Days JANIS WOODS MD [Staff Physician] - 7 Days MARTÍN SIMON MD [Staff Physician] - 7 Days Prescriptions: amLODIPine 10 mg PO QDAY #30 tablet Folic Acid [Folvite] 1 mg PO QDAY #30 tablet Gabapentin 300 mg PO Q8HR #90 capsule Aspirin EC [Halfprin EC] 81 mg PO QDAY #30 tablet HYDROcodone/APAP 10-325 [[place] 10-325 mg TAB] 1 each PO Q6HR PRN #12 PRN Reason: Pain Famotidine [Pepcid] 20 mg PO BID #28 tablet Clopidogrel [Plavix] 75 mg PO QDAY #30 tablet Mirtazapine [Remeron 15mg TAB] 15 mg PO QHS #30 tablet Thiamine [Vitamin B-1] 100 mg PO QDAY #30 tablet
[2020-03-02 11:52] VITALS: BP 134/82
[2020-03-02] MEDS: SODIUM HYPOCHLORITE, DAKIN'S 1/2 STRENGTH (0.25%) 473 ML TOPICAL SOLN TP SCH (12:25)
[2020-03-02] MEDS: VANCOMYCIN 1,500 MG in SODIUM CHLORIDE 0.9% 500 ML 500 ML IV SCH (14:12)
--- NOTE | 2020-03-02 16:19 | Progress Note ---
Assessment and Plan Cultures: 02/26/2020 blood culture: In process 02/28/2020 wound MRSA A/P: 54-year-old male with diabetes mellitus type 2, hypertension, peripheral vascular disease, active tobacco use, alcohol use was admitted to the hospital yesterday with complaints of worsening ulceration and drainage from his left foot. He has previously had his left great toe amputation done due to infection. He is known to us from his previous hospitalization in August 2019 that required surgical intervention on his left foot, MRI was negative for osteo at that time, now with: #Left foot diabetic ulceration: No fever or leukocytosis. Xray negative for osteomyelitis +gas. Art US +monophasic waves. CRP=5. S/p Excision and drainage with debridement of left foot abscess. Findings with an abscess cavity extending through forefoot and area of tissue of previous great toe amputation, with no sign of exposure to bone. Wound cx MRSA> #DM 2, h/o left great toe amputation: tight glycemic control #Peripheral vascular disease: awaits angio. Vascular following. Arterial doppler with monophasic flow. #Tobacco abuse: Recommend smoking cessation #Vancomycin allergy: Not a true allergy, patient reports "red man" syndrome from vancomycin that resolves with Benadryl. Recommend as needed Benadryl and infusing vancomycin at a slower infusion rate. Recs: Anticipate to d/c vancomycin 1.5 gm IV q 12 hour total 3 weeks for 2 weeks with a PICC line till 03/20/2020. Keep vancomycin trough 10-15 mcg/mL. Sent to immigration case worker. May need to be extended. Place PICC ID clinic f/u in 2 weeks Continue wound care Will sign off Pastora Gongora MD Infectious Diseases Guest Relations Agent [facility] ([facility] M [phone] O [phone] Subjective Date of service: 03/02/20 Principal diagnosis: left foot wound Interval history: Feels ok, minimal pain, no fever Objective - Exam Narrative Exam: General appearance: Alert in NAD Eyes: anicteric sclerae, moist conjunctivae; no lid-lag; PERRLA HENT: Atraumatic; oropharynx clear Lungs: CTA, with normal respiratory effort and no intercostal retractions CV: RRR no murmur Abdomen: Soft, non-tender; no masses or hepatosplenomegaly Extremities: +left foot surg wound with devitalized tissue Skin: No rash. Psych: Appropriate affect, alert and oriented to person, place and time. Neuro: alert and oriented x 3. Moving all extermities - Constitutional Vitals: Vital Signs Temp Pulse Resp BP Pulse Ox 97.3 F L 85 20 134/82 96 03/02/20 11:47 03/02/20 11:47 03/02/20 11:47 03/02/20 11:47 03/02/20 11:47 Temperature -Last 24 Hours Temperature 97.3 F Temperature 32.1 F Temperature 97.8 F Temperature 97.6 F Temperature 97.5 F Temperature 98.5 F Temperature 98.2 F Temperature 98.6 F Temperature 98.5 F Temperature 97.6 F Temperature 98 F Temperature 98.2 F Temperature 98.2 F Temperature 98.5 F Temperature 97.5 F Temperature 98.5 F Temperature 98.0 F - Labs CBC & Chem 7: 03/01/20 12:40 03/01/20 12:40 Labs: Abnormal lab results 03/01/20 03/02/20 03/02/20 Range/Units 17:06 08:47 12:05 POC Glucose 221 H 125 H 222 H (70-105)
== END 2020-03-02 18:30 | disposition home health service (06) | DRG 278 ==
LOC: ED 12:44 → 4A 17:56
PROVIDERS: ADMIT Internal Medicine; ATTEND Hospitalist
PROC: 3E0234Z Introduction of Serum, Toxoid and Vaccine into Muscle, Percutaneous Approach (ICD-10-PCS; 2020-02-27)
PROC: 0JBR0ZZ Excision of Left Foot Subcutaneous Tissue and Fascia, Open Approach (ICD-10-PCS; principal; 2020-02-28)
PROC: B44LZZZ Ultrasonography of Femoral Artery (ICD-10-PCS; 2020-02-28)
PROC: B41D1ZZ Fluoroscopy of Aorta and Bilateral Lower Extremity Arteries using Low Osmolar Contrast (ICD-10-PCS; 2020-02-28)
PROC: 04CL3ZZ Extirpation of Matter from Left Femoral Artery, Percutaneous Approach (ICD-10-PCS; 2020-03-01)
PROC: 047L3Z1 Dilation of Left Femoral Artery using Drug-Coated Balloon, Percutaneous Approach (ICD-10-PCS; 2020-03-01)
PROC: 047N3Z1 Dilation of Left Popliteal Artery using Drug-Coated Balloon, Percutaneous Approach (ICD-10-PCS; 2020-03-01)
PROC: B44LZZZ Ultrasonography of Femoral Artery (ICD-10-PCS; 2020-03-01)
PROC: 05HY33Z Insertion of Infusion Device into Upper Vein, Percutaneous Approach (ICD-10-PCS; 2020-03-02)
DX: E11.52 Type 2 diabetes mellitus with diabetic peripheral angiopathy with gangrene (principal); L03.116 Cellulitis of left lower limb; E87.1 Hypo-osmolality and hyponatremia; L02.612 Cutaneous abscess of left foot; L97.528 Non-pressure chronic ulcer of other part of left foot with other specified severity; I99.8 Other disorder of circulatory system; E11.621 Type 2 diabetes mellitus with foot ulcer; F17.200 Nicotine dependence, unspecified, uncomplicated; I10 Essential (primary) hypertension; E78.5 Hyperlipidemia, unspecified; E66.9 Obesity, unspecified; Z23 Encounter for immunization; Z72.89 Other problems related to lifestyle; Z88.1 Allergy status to other antibiotic agents; Z86.718 Personal history of other venous thrombosis and embolism; Z68.29 Body mass index [BMI] 29.0-29.9, adult; Z82.49 Family history of ischemic heart disease and other diseases of the circulatory system; Z89.412 Acquired absence of left great toe; Z86.73 Personal history of transient ischemic attack (TIA), and cerebral infarction without residual deficits; Z79.899 Other long term (current) drug therapy
CPT/HCPCS: 36246; 36415; 37225; 75625; 75710; 76937; 80048; 80053; 80076; 80202; 82962; 83036; 85007; 85025; 85610; 85652; 85730; 86140; 87040; 87075; 87076; 87116; 87186; 87641; 90732; G0378; A6260; C1714; C1760; C1769; C1884; C1887; C2623; J0692; J1170; J1200; J1644; J1815; J2250; J2270; J2405; J2543; J2704; J3010; J3370; J7030; J7040; Q9967

== ENCOUNTER 2020-03-15 13:31 | Outpatient (CLI) | payer MEDICAID ==
[2020-03-15] MEDS ORDERED: LIDOCAINE (4%) 40 MG/ML TOPICAL SOLN 50 ML BOTTLE TP SCH (13:45)
[2020-03-15] MEDS ORDERED: SILVER NITRATE APPLICATOR 1 EA TP ONE (14:17)
[2020-03-15] MEDS ORDERED: SODIUM HYPOCHLORITE, DAKIN'S FULL STRENGTH (0.5%) 473 ML TOPICAL SOLN TP ONE (14:23)
== END 2020-03-15 13:32 | disposition home or self-care (01) ==
LOC: WOUND 13:31
PROVIDERS: ATTEND Surgery
DX: E11.621 Type 2 diabetes mellitus with foot ulcer (principal); L97.522 Non-pressure chronic ulcer of other part of left foot with fat layer exposed; I10 Essential (primary) hypertension; E78.00 Pure hypercholesterolemia, unspecified; F17.210 Nicotine dependence, cigarettes, uncomplicated; Z89.9 Acquired absence of limb, unspecified
CPT/HCPCS: 82962

== ENCOUNTER 2020-04-27 09:50 | Outpatient (CLI) | payer MEDICAID ==
[2020-04-27] MEDS ORDERED: LIDOCAINE (4%) 40 MG/ML TOPICAL SOLN 50 ML BOTTLE TP ONE (10:00)
== END 2020-04-27 09:51 | disposition home or self-care (01) ==
LOC: WOUND 09:50
PROVIDERS: ATTEND Surgery
DX: E11.621 Type 2 diabetes mellitus with foot ulcer (principal); L97.522 Non-pressure chronic ulcer of other part of left foot with fat layer exposed; I10 Essential (primary) hypertension; E78.00 Pure hypercholesterolemia, unspecified; F17.210 Nicotine dependence, cigarettes, uncomplicated; Z89.9 Acquired absence of limb, unspecified

== ENCOUNTER 2020-05-17 11:04 | Outpatient (CLI) | payer MEDICAID | END 2020-05-17 11:05 | disposition home or self-care (01) | LOC: WOUND 11:04 | PROVIDERS: ATTEND Surgery | DX: E11.621 Type 2 diabetes mellitus with foot ulcer (principal); L97.522 Non-pressure chronic ulcer of other part of left foot with fat layer exposed; I10 Essential (primary) hypertension; E78.00 Pure hypercholesterolemia, unspecified; F17.210 Nicotine dependence, cigarettes, uncomplicated; Z89.9 Acquired absence of limb, unspecified ==

== ENCOUNTER 2020-06-15 11:01 | Outpatient (CLI) | payer MEDICAID | END 2020-06-15 11:02 | disposition home or self-care (01) | LOC: WOUND 11:01 | PROVIDERS: ATTEND Surgery | DX: E11.621 Type 2 diabetes mellitus with foot ulcer (principal); L97.522 Non-pressure chronic ulcer of other part of left foot with fat layer exposed; L84 Corns and callosities; I10 Essential (primary) hypertension; E78.00 Pure hypercholesterolemia, unspecified; F17.200 Nicotine dependence, unspecified, uncomplicated; F12.90 Cannabis use, unspecified, uncomplicated ==

== ENCOUNTER 2020-06-29 10:57 | Outpatient (CLI) | payer MEDICAID | END 2020-06-29 10:58 | disposition home or self-care (01) | LOC: WOUND 10:57 | PROVIDERS: ATTEND Surgery | DX: E11.621 Type 2 diabetes mellitus with foot ulcer (principal); L97.528 Non-pressure chronic ulcer of other part of left foot with other specified severity; L84 Corns and callosities; I10 Essential (primary) hypertension; E78.00 Pure hypercholesterolemia, unspecified; F17.200 Nicotine dependence, unspecified, uncomplicated; F12.90 Cannabis use, unspecified, uncomplicated | CPT/HCPCS: 99213; G0463 ==

== ENCOUNTER 2020-08-15 05:07 | Inpatient (IN) | payer MEDICAID ==
[~2020-08-15 05:07] MED LIST: ROCURONIUM 50 MG/5 ML INJ IV ONE
[2020-08-15] MEDS ORDERED: ETOMIDATE 20 MG/10 ML INJ IV ONE (06:40)
[2020-08-15] MEDS ORDERED: SODIUM CHLORIDE 0.9% 1000 ML 1,000 ML IV ONE (06:45)
[2020-08-15] MEDS ORDERED: levETIRAcetam 1000 MG/NS 0.75% 1,000 MG/100 ML BAG IV ONE (07:00)
[2020-08-15] MEDS ORDERED: fentaNYL DRIP Premix 2,000 MCG/100 ML BAG IV ONE ×5 (07:39→23:21)
[2020-08-15] MEDS ORDERED: DIPHtheria,PERTUSSIS(ACELL),TETANUS VACCINE/PF 0.5 ML VIAL IM ONE (07:40)
[2020-08-15] MEDS ORDERED: LIDOCAINE 2%/EPINEPHRINE 1:100,000 VIAL (20 ML) INFILTRATI ONE ×2 (08:59→09:00)
[2020-08-15] MEDS ORDERED: ACYCLOVIR 800 MG in SODIUM CHLORIDE 0.9% 100 ML IV ONE (09:00)
[2020-08-15] MEDS ORDERED: dexAMETHasone 20 MG/5 ML VIAL IV ONE (09:00)
[2020-08-15] MEDS ORDERED: cefTRIAXone/NS 2 GM/100 ML 2 GM/100 ML BAG IV ONE ×2 (09:00→09:16)
[2020-08-15] MEDS ORDERED: dexAMETHasone 20 MG/5 ML VIAL ONE (09:16)
[2020-08-15] MEDS ORDERED: SODIUM CHLORIDE 0.9% 1000 ML 2,000 ML ONE (09:37)
[2020-08-15] MEDS ORDERED: DEXTROSE 50% IN WATER (25GM) 50 ML SYRINGE IV ONE (10:00)
[2020-08-15] MEDS ORDERED: THIAMINE 100 MG, FOLIC ACID 1 MG, MULTIPLE VITAMIN INJ, ADULT 10 ML in SODIUM CHLORIDE ... IV ONE (10:00)
[2020-08-15] MEDS: fentaNYL DRIP Premix 2,000 MCG/100 ML BAG IV SCH (11:21)
[2020-08-15] MEDS ORDERED: NORepinephrine/NS 4 MG-250 ML 4 MG/250 ML BAG IV ONE (15:16)
[2020-08-15] MEDS ORDERED: fentaNYL 100 MCG/2 ML INJ ONE (18:14)
[2020-08-15] MEDS: LORazepam 2 MG/ML VIAL IV PRN (19:30)
[2020-08-15] MEDS ORDERED: LORazepam 2 MG/ML VIAL ONE (19:40)
[2020-08-15 21:21] LABS: ABG Base Excess -5.9 mmol/L (-2.0-3.0); ABG HCO3 19.2 mmol/L (20.0-26.0); ABG Methemoglobin 0.6 % (0.0-1.5); ABG Oxygen Saturation 97.7 % (95.0-99.0); ABG PCO2 36.6 mm Hg; ABG PH 7.338 pH Units (7.350-7.450); ABG PO2 105.9 mm Hg (80.0-90.0)
[2020-08-16] MEDS ORDERED: fentaNYL DRIP Premix 2,000 MCG/100 ML BAG IV SCH (01:00)
[2020-08-16] MEDS ORDERED: THIAMINE 500 MG in SODIUM CHLORIDE 0.9% 100 ML IV ONE (01:30)
[2020-08-16 02:05] LABS: BUN/Creatinine Ratio 37; Basophils % (Auto) 0.3 % (0.0-1.8); Blood Urea Nitrogen 33 mg/dL (9-20); Calcium 9.5 mg/dL (8.4-10.2); Hematocrit 36.9 % (35.5-45.6); Hemoglobin 12.4 gm/dl (11.8-15.2); Hemolysis Index 38; Lymphocytes # (Auto) 2.3 K/mm3 (1.2-5.4); Mean Corpuscular HGB Conc 34 % (32-34); Mean Corpuscular Volume 92 fl (84-94); Monocytes % (Auto) 5.8 % (0.0-7.3); Platelet Count 359 K/mm3 (140-440); Red Blood Count 4.02 M/mm3 (3.65-5.03); Red Cell Distribution Width 15.2 % (13.2-15.2)
[2020-08-16 02:24] LABS: INR 1.06 (0.87-1.13)
[2020-08-16 02:25] LABS: Partial Thromboplastin Time 23.9 Sec. (24.2-36.6)
[2020-08-16 04:48] LABS: ABG Base Excess -5.2 mmol/L (-2.0-3.0); ABG Methemoglobin 0.5 % (0.0-1.5); ABG Oxygen Saturation 98.5 % (95.0-99.0); ABG PCO2 37.4 mm Hg; ABG PH 7.345 pH Units (7.350-7.450); ABG PO2 134.5 mm Hg (80.0-90.0)
[2020-08-16] MEDS: LORazepam 2 MG/ML VIAL IV PRN ×2 (06:47→10:56)
[2020-08-16] MEDS ORDERED: LORazepam 2 MG/ML VIAL ONE (08:21)
[2020-08-16] MEDS ORDERED: VANCOMYCIN/NS 1 GM/250 ML 1 GM/250 ML BAG IV SCH (09:00)
[2020-08-16] MEDS ORDERED: cefTRIAXone/NS 2 GM/100 ML 2 GM/100 ML BAG IV SCH (09:30)
--- NOTE | 2020-08-16 09:49 | Consultation ---
History of Present Illness Consult date: 08/16/20 Requesting physician: GRISELDA RODRIGUEZ Reason for consult: other (Acute Hypoxemic Respiratory Failure on MVS; Severe Sepsis with Shock; Acute Encephalopathy) History of present illness: PCCM CONSULT NOTE (Full dictation # [id number]) Please see dictated notes for full details Medications and Allergies Allergies Allergy/AdvReac Type Severity Reaction Status Date / Time vancomycin AdvReac Rash Verified 08/16/20 10:15 Home Medications Medication Instructions Recorded Confirmed Last Taken Type metFORMIN [Glucophage] 500 mg PO BID #60 tablet 05/18/18 07/07/20 08/21/19 21:00 Rx Gabapentin 300 mg PO Q8HR #90 capsule 03/02/20 07/07/20 Unknown Rx Sodium Hypochlorite [Dakin's Half 1 applic TP BID bottle 03/02/20 07/07/20 Unknown Rx Strength] amLODIPine 10 mg PO QDAY #30 tablet 03/02/20 07/07/20 Unknown Rx Baclofen 10 mg PO BID 07/07/20 07/07/20 Unknown History predniSONE [Deltasone] 20 mg PO BID 07/07/20 07/07/20 Unknown History traZODone [Desyrel] 50 mg PO QHS 07/07/20 07/07/20 Unknown History Aspirin EC [Halfprin EC] 81 mg PO QDAY tablet 07/08/20 Unknown Rx Clopidogrel [Plavix] 75 mg PO QDAY tablet 07/08/20 Unknown Rx Famotidine [Pepcid] 20 mg PO BID tablet 07/08/20 Unknown Rx Folic Acid [Folvite] 1 mg PO QDAY tablet 07/08/20 Unknown Rx HYDROcodone/APAP 10-325 [[place] 1 each PO Q6HR PRN #12 07/08/20 Unknown Rx 10-325 mg TAB] Mirtazapine [Remeron 15mg TAB] 15 mg PO QHS tablet 07/08/20 Unknown Rx Thiamine [Vitamin B-1] 100 mg PO QDAY tablet 07/08/20 Unknown Rx Active Meds: Active Medications Fentanyl Citrate (Fentanyl Drip Premix) 2,000 mcg in 100 mls @ 5 mls/hr IV TITR NADJA; Protocol Vancomycin HCl (Vancomycin/Ns 1 Gm/250 Ml) 1 gm in 250 mls @ 166.667 mls/hr IV Q12H NADJA; Protocol Ceftriaxone Sodium (Rocephin/Ns 2 Gm/100 Ml) 2 gm in 100 mls @ 200 mls/hr IV Q24HR NADJA; Protocol Lorazepam (Ativan) 2 mg IV Q4H PRN PRN Reason: Agitation Last Admin: 08/16/20 06:47 Dose: 2 mg Documented by: Physical Examination Vital signs: Vital Signs Pulse Resp BP 66 20 114/69 08/15/20 17:00 08/15/20 17:00 08/15/20 17:00 Results - Laboratory Findings CBC and BMP: 08/16/20 Unknown 08/16/20 Unknown ABG ABG pH 7.345 pH Units (7.350-7.450) L 08/16/20 04:30 ABG pCO2 37.4 mm Hg 08/16/20 04:30 ABG pO2 134.5 mm Hg (80.0-90.0) H 08/16/20 04:30 ABG O2 Saturation 98.5 % (95.0-99.0) 08/16/20 04:30 PT/INR, D-dimer PT 13.9 Sec. (12.2-14.9) 08/16/20 Unknown INR 1.06 (0.87-1.13) 08/16/20 Unknown Abnormal lab findings: Abnormal Labs 08/15/20 08/16/20 08/16/20 21:10 04:30 Unknown WBC 16.7 H [place] # (Auto) 1.0 H Seg Neutrophils % 79.9 H Seg Neutrophils # 13.4 H APTT ABG pH 7.338 L 7.345 L ABG pO2 105.9 H 134.5 H ABG HCO3 19.2 L ABG Base Excess -5.9 L -5.2 L ABG Hemoglobin 12.3 L 12.1 L Carbon Dioxide BUN Glucose 08/16/20 08/16/20 Unknown Unknown WBC [place] # (Auto) Seg Neutrophils % Seg Neutrophils # APTT 23.9 L ABG pH ABG pO2 ABG HCO3 ABG Base Excess ABG Hemoglobin Carbon Dioxide 17 L BUN 33 H Glucose 233 H
[2020-08-16] MEDS ORDERED: fentaNYL DRIP Premix 2,000 MCG/100 ML BAG IV ONE (10:17)
[2020-08-16] MEDS ORDERED: MINERAL OIL/PETROLATUM, WHITE OPHTH OINT 3.5 GM OU PRN (10:30)
[2020-08-16] MEDS ORDERED: LIP THERAPY VASELINE TP PRN (10:30)
[2020-08-16] MEDS ORDERED: fentaNYL 100 MCG/2 ML INJ IV PRN (10:30)
[2020-08-16] MEDS: ROCURONIUM 50 MG/5 ML INJ IV ONE (10:54)
[2020-08-16] MEDS ORDERED: cefTRIAXone/NS 2 GM/100 ML 2 GM/100 ML BAG IV ONE (10:57)
[2020-08-16] MEDS ORDERED: FAMOTIDINE 20 MG/2 ML INJ IV ONE (10:57)
[2020-08-16] MEDS: VANCOMYCIN 2,000 MG in SODIUM CHLORIDE 0.9% 500 ML 500 ML IV ONE ×2 (11:13→11:48)
[2020-08-16] MEDS: FAMOTIDINE 20 MG/2 ML INJ IV SCH ×2 (11:18→21:40)
--- NOTE | 2020-08-16 12:26 | History and Physical Report ---
History of Present Illness Date of examination: 08/15/20 Date of admission: 08/15/20 11:00 Chief complaint: Altered mental status History of present illness: This is a 55-year-old male with past medical history of tobacco abuse, hypertension, hyperlipidemia diabetes mellitus type 2 and peripheral vascular disease who [place] and noted to have lethargy and hyporesponsiveness. Patient was transferred to our facility and intubated by the ER physician due to airway compromise/airway protection. The patient was noted to have an ABG of pH 7.33/PCO2 36/PO2 105 on room air. The patient had most recent hospitalization June 2020 and treated for chest pain attributed to costochondritis and chronic diastolic heart failure. Also, patient has had multiple peripheral artery procedures most recently 4 months ago and treatment for left diabetic foot ulceration/infection. Patient previously had an x-ray negative for osteomyelitis but did have gas. The patient had a PICC line placed in February and was to receive 3 weeks of vancomycin IV. Patient now presents with as noted above altered mentation and acute hypoxic respiratory failure. No other history is obtained as the patient is intubated on mechanical ventilation. Past History Past Medical History: diabetes, hypertension, hyperlipidemia, other (Peripheral vascular disease) Past Surgical History: Other Social history: no significant social history Family history: no significant family history Medications and Allergies Allergies Allergy/AdvReac Type Severity Reaction Status Date / Time vancomycin AdvReac Rash Verified 08/16/20 10:15 Home Medications Medication Instructions Recorded Confirmed Last Taken Type metFORMIN [Glucophage] 500 mg PO BID #60 tablet 05/18/18 07/07/20 08/21/19 21:00 Rx Gabapentin 300 mg PO Q8HR #90 capsule 03/02/20 07/07/20 Unknown Rx Sodium Hypochlorite [Dakin's Half 1 applic TP BID bottle 03/02/20 07/07/20 Unknown Rx Strength] amLODIPine 10 mg PO QDAY #30 tablet 03/02/20 07/07/20 Unknown Rx Baclofen 10 mg PO BID 07/07/20 07/07/20 Unknown History predniSONE [Deltasone] 20 mg PO BID 07/07/20 07/07/20 Unknown History traZODone [Desyrel] 50 mg PO QHS 07/07/20 07/07/20 Unknown History Aspirin EC [Halfprin EC] 81 mg PO QDAY tablet 07/08/20 Unknown Rx Clopidogrel [Plavix] 75 mg PO QDAY tablet 07/08/20 Unknown Rx Famotidine [Pepcid] 20 mg PO BID tablet 07/08/20 Unknown Rx Folic Acid [Folvite] 1 mg PO QDAY tablet 07/08/20 Unknown Rx HYDROcodone/APAP 10-325 [[place] 1 each PO Q6HR PRN #12 07/08/20 Unknown Rx 10-325 mg TAB] Mirtazapine [Remeron 15mg TAB] 15 mg PO QHS tablet 07/08/20 Unknown Rx Thiamine [Vitamin B-1] 100 mg PO QDAY tablet 07/08/20 Unknown Rx Active Meds: Active Medications Enoxaparin Sodium (Enoxaparin) 40 mg SUB-Q QDAY@2200 NADJA; Protocol Famotidine (Pepcid) 20 mg IV BID NADJA Last Admin: 08/16/20 11:18 Dose: 20 mg Documented by: Fentanyl (Sublimaze) 50 mcg IV Q10MIN PRN PRN Reason: ANALGESIA Hydrophilic Ointment (Vaseline Lip Therapy) 1 applic TP Q2HR PRN PRN Reason: Dry Lips Fentanyl Citrate (Fentanyl Drip Premix) 2,000 mcg in 100 mls @ 5 mls/hr IV TITR NADJA; Protocol Last Admin: 08/16/20 10:22 Dose: 4 mcg/kg/hr, 20 mls/hr Documented by: Ceftriaxone Sodium (Rocephin/Ns 2 Gm/100 Ml) 2 gm in 100 mls @ 200 mls/hr IV Q24HR NADJA; Protocol Last Admin: 08/16/20 11:19 Dose: 200 mls/hr Documented by: Vancomycin HCl 2,000 mg/ (Sodium Chloride) 540 mls @ 250 mls/hr IV ONCE ONE Stop: 08/16/20 12:39 Last Admin: 08/16/20 11:48 Dose: 250 mls/hr Documented by: Vancomycin HCl 1,750 mg/ (Sodium Chloride) 535 mls @ 333.333 mls/hr IV Q12HR NADJA Fentanyl Citrate (Fentanyl Drip Premix) 2,000 mcg in 100 mls @ 5 mls/hr IV TITR NADJA; Protocol Last Admin: 08/15/20 11:21 Dose: 4 mcg/kg/hr, 20 mls/hr Documented by: Lorazepam (Ativan) 2 mg IV Q4H PRN PRN Reason: Agitation Last Admin: 08/16/20 10:56 Dose: 2 mg Documented by: Multi-Ingred Cream/Lotion/Oil/Oint (Artificial Tears Ophth Oint) 1 applic OU Q4HR PRN PRN Reason: Dry Eye(s) Review of Systems ROS unobtainable: due to mental status Exam - Constitutional Vitals: Temp Pulse Resp BP Pulse Ox 97.9 F 63 20 132/82 100 08/16/20 09:50 08/16/20 09:50 08/16/20 09:53 08/16/20 09:50 08/16/20 09:53 General appearance: Present: no acute distress, well-nourished, other (Intubated on mechanical ventilation) - EENT Eyes: Present: PERRL ENT: hearing intact, clear oral mucosa - Neck Neck: Present: supple, normal ROM - Respiratory Respiratory effort: normal Respiratory: bilateral: CTA - Cardiovascular Heart Sounds: Present: S1 & S2. Absent: rub, click - Extremities Extremities: pulses symmetrical, No edema Peripheral Pulses: within normal limits - Abdominal General gastrointestinal: Present: soft, non-tender, non-distended, normal bowel sounds Male genitourinary: Present: normal - Integumentary Integumentary: Present: clear, warm, dry - Musculoskeletal Musculoskeletal: gait normal, strength equal bilaterally - Psychiatric Psychiatric: appropriate mood/affect, intact judgment & insight - Neurologic Neurologic: other (Encephalopathic) Results - Labs CBC & Chem 7: 08/16/20 Unknown 08/16/20 Unknown Labs: Laboratory Last Values WBC 16.7 K/mm3 (4.5-11.0) H 08/16/20 Unknown RBC 4.02 M/mm3 (3.65-5.03) 08/16/20 Unknown Hgb 12.4 gm/dl (11.8-15.2) 08/16/20 Unknown Hct 36.9 % (35.5-45.6) 08/16/20 Unknown MCV 92 fl (84-94) 08/16/20 Unknown MCH 31 pg (28-32) 08/16/20 Unknown MCHC 34 % (32-34) 08/16/20 Unknown RDW 15.2 % (13.2-15.2) 08/16/20 Unknown Plt Count 359 K/mm3 (140-440) 08/16/20 Unknown Lymph % (Auto) 14.0 % (13.4-35.0) 08/16/20 Unknown [place] % (Auto) 5.8 % (0.0-7.3) 08/16/20 Unknown Eos % (Auto) 0.0 % (0.0-4.3) 08/16/20 Unknown Baso % (Auto) 0.3 % (0.0-1.8) 08/16/20 Unknown Lymph # (Auto) 2.3 K/mm3 (1.2-5.4) 08/16/20 Unknown [place] # (Auto) 1.0 K/mm3 (0.0-0.8) H 08/16/20 Unknown Eos # (Auto) 0.0 K/mm3 (0.0-0.4) 08/16/20 Unknown Baso # (Auto) 0.0 K/mm3 (0.0-0.1) 08/16/20 Unknown Seg Neutrophils % 79.9 % (40.0-70.0) H 08/16/20 Unknown Seg Neutrophils # 13.4 K/mm3 (1.8-7.7) H 08/16/20 Unknown PT 13.9 Sec. (12.2-14.9) 08/16/20 Unknown INR 1.06 (0.87-1.13) 08/16/20 Unknown APTT 23.9 Sec. (24.2-36.6) L 08/16/20 Unknown ABG pH 7.345 pH Units (7.350-7.450) L 08/16/20 04:30 ABG pCO2 37.4 mm Hg 08/16/20 04:30 ABG pO2 134.5 mm Hg (80.0-90.0) H 08/16/20 04:30 ABG HCO3 20.0 mmol/L (20.0-26.0) 08/16/20 04:30 ABG O2 Saturation 98.5 % (95.0-99.0) 08/16/20 04:30 ABG O2 Content 16.7 (0.0-44) 08/16/20 04:30 ABG Base Excess -5.2 mmol/L (-2.0-3.0) L 08/16/20 04:30 ABG Hemoglobin 12.1 gm/dl (14.0-18.0) L 08/16/20 04:30 ABG Carboxyhemoglobin 1.2 % (0.0-5.0) 08/16/20 04:30 ABG Methemoglobin 0.5 % (0.0-1.5) 08/16/20 04:30 Oxyhemoglobin 96.9 % (95.0-99.0) 08/16/20 04:30 FiO2 40 % 08/16/20 04:30 Sodium 139 mmol/L (137-145) 08/16/20 Unknown Potassium 4.0 mmol/L (3.6-5.0) 08/16/20 Unknown Chloride 106.5 mmol/L (98-107) 08/16/20 Unknown Carbon Dioxide 17 mmol/L (22-30) L 08/16/20 Unknown Anion Gap 20 mmol/L 08/16/20 Unknown BUN 33 mg/dL (9-20) H 08/16/20 Unknown Creatinine 0.9 mg/dL (0.8-1.3) 08/16/20 Unknown Estimated GFR > 60 ml/min 08/16/20 Unknown BUN/Creatinine Ratio 37 % 08/16/20 Unknown Glucose 233 mg/dL (75-100) H 08/16/20 Unknown Calcium 9.5 mg/dL (8.4-10.2) 08/16/20 Unknown Microbiology: Microbiology 08/15/20 10:45 Peripheral/Venous Blood Culture - Preliminary Culture in Progress 08/15/20 10:45 Peripheral/Venous Blood Culture - Preliminary Culture in Progress Jones/IV: IV Catheter Type [Left Hand] INT / Saline Lock Assessment and Plan Assessment and plan: Toxic metabolic encephalopathy. Etiology is unknown. 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 Patient started on vancomycin, Rocephin and acyclovir. LP completed by the emergency room physician and await studies. ID and neurology consultations. Sepsis. Etiology is unknown. We will follow-up LP studies. Blood cultures/urine cultures. Acute hypoxic respiratory failure. Patient will be continued on mechanical ventilation. Pulmonary consulted. Patient currently on sedation with fentanyl drip. Hypertension. Resume antihypertensive medications Diabetes mellitus type 2. Continue Accu-Cheks and sliding scale insulin Hyperlipidemia. Statins. Diabetic foot ulcer. Wound care consultation. The high probability of a clinically significant, sudden or life threatening deterioration of the [respiratory, neurologic and immunologic] system(s) required my full and direct attention, intervention and personal management. The aggregate critical care time was [78] minutes. This time is in addition to time spent performing reported procedures but includes the following: [x] Data Review and interpretation [x] Patient assessment and monitoring of vital signs [x] Documentation [x] Medication orders and management
--- NOTE | 2020-08-16 12:33 | Progress Note ---
Assessment and Plan Assessment and plan: Toxic metabolic encephalopathy. Etiology is unknown. 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 Patient started on vancomycin, Rocephin and acyclovir. LP completed by the emergency room physician and await studies. ID and neurology consultations. Sepsis. Etiology is unknown. We will follow-up LP studies. Blood cultures/urine cultures. Acute hypoxic respiratory failure. Patient will be continued on mechanical ventilation. Pulmonary consulted. Patient currently on sedation with fentanyl drip. Hypertension. Resume antihypertensive medications Diabetes mellitus type 2. Continue Accu-Cheks and sliding scale insulin Hyperlipidemia. Statins. Diabetic foot ulcer. Wound care consultation. 08/16/2020. Wean sedation of fentanyl as tolerated. Patient currently on AC mode ventilation with rate of 20, tidal volume 450, FiO2 40% and PEEP of 6. Pulmonology following. ID and neurology consultations. The high probability of a clinically significant, sudden or life threatening deterioration of the [respiratory, neurologic and immunologic] system(s) required my full and direct attention, intervention and personal management. The aggregate critical care time was [38] minutes. This time is in addition to time spent performing reported procedures but includes the following: [x] Data Review and interpretation [x] Patient assessment and monitoring of vital signs [x] Documentation [x] Medication orders and management History Interval history: Patient remains intubated and sedated on mechanical ventilation Hospitalist Physical - Constitutional Vitals: Temp Pulse Resp BP Pulse Ox 97.9 F 63 20 132/82 100 08/16/20 09:50 08/16/20 09:50 08/16/20 09:53 08/16/20 09:50 08/16/20 09:53 General appearance: Present: no acute distress, well-nourished, other (Intubated on mechanical ventilation) - EENT Eyes: Present: PERRL, EOM intact ENT: hearing intact, clear oral mucosa, dentition normal - Neck Neck: Present: supple, normal ROM - Respiratory Respiratory effort: normal Respiratory: bilateral: CTA - Cardiovascular Rhythm: regular Heart Sounds: Present: S1 & S2. Absent: gallop, rub - Extremities Extremities: no ischemia, No edema, Full ROM - Abdominal General gastrointestinal: soft, non-tender, non-distended, normal bowel sounds - Integumentary Integumentary: Present: clear, warm, dry - Neurologic Neurologic: CNII-XII intact, moves all extremities Results - Labs CBC & Chem 7: 08/16/20 Unknown 08/16/20 Unknown Labs: Laboratory Last Values WBC 16.7 K/mm3 (4.5-11.0) H 08/16/20 Unknown RBC 4.02 M/mm3 (3.65-5.03) 08/16/20 Unknown Hgb 12.4 gm/dl (11.8-15.2) 08/16/20 Unknown Hct 36.9 % (35.5-45.6) 08/16/20 Unknown MCV 92 fl (84-94) 08/16/20 Unknown MCH 31 pg (28-32) 08/16/20 Unknown MCHC 34 % (32-34) 08/16/20 Unknown RDW 15.2 % (13.2-15.2) 08/16/20 Unknown Plt Count 359 K/mm3 (140-440) 08/16/20 Unknown Lymph % (Auto) 14.0 % (13.4-35.0) 08/16/20 Unknown [place] % (Auto) 5.8 % (0.0-7.3) 08/16/20 Unknown Eos % (Auto) 0.0 % (0.0-4.3) 08/16/20 Unknown Baso % (Auto) 0.3 % (0.0-1.8) 08/16/20 Unknown Lymph # (Auto) 2.3 K/mm3 (1.2-5.4) 08/16/20 Unknown [place] # (Auto) 1.0 K/mm3 (0.0-0.8) H 08/16/20 Unknown Eos # (Auto) 0.0 K/mm3 (0.0-0.4) 08/16/20 Unknown Baso # (Auto) 0.0 K/mm3 (0.0-0.1) 08/16/20 Unknown Seg Neutrophils % 79.9 % (40.0-70.0) H 08/16/20 Unknown Seg Neutrophils # 13.4 K/mm3 (1.8-7.7) H 08/16/20 Unknown PT 13.9 Sec. (12.2-14.9) 08/16/20 Unknown INR 1.06 (0.87-1.13) 08/16/20 Unknown APTT 23.9 Sec. (24.2-36.6) L 08/16/20 Unknown ABG pH 7.345 pH Units (7.350-7.450) L 08/16/20 04:30 ABG pCO2 37.4 mm Hg 08/16/20 04:30 ABG pO2 134.5 mm Hg (80.0-90.0) H 08/16/20 04:30 ABG HCO3 20.0 mmol/L (20.0-26.0) 08/16/20 04:30 ABG O2 Saturation 98.5 % (95.0-99.0) 08/16/20 04:30 ABG O2 Content 16.7 (0.0-44) 08/16/20 04:30 ABG Base Excess -5.2 mmol/L (-2.0-3.0) L 08/16/20 04:30 ABG Hemoglobin 12.1 gm/dl (14.0-18.0) L 08/16/20 04:30 ABG Carboxyhemoglobin 1.2 % (0.0-5.0) 08/16/20 04:30 ABG Methemoglobin 0.5 % (0.0-1.5) 08/16/20 04:30 Oxyhemoglobin 96.9 % (95.0-99.0) 08/16/20 04:30 FiO2 40 % 08/16/20 04:30 Sodium 139 mmol/L (137-145) 08/16/20 Unknown Potassium 4.0 mmol/L (3.6-5.0) 08/16/20 Unknown Chloride 106.5 mmol/L (98-107) 08/16/20 Unknown Carbon Dioxide 17 mmol/L (22-30) L 08/16/20 Unknown Anion Gap 20 mmol/L 08/16/20 Unknown BUN 33 mg/dL (9-20) H 08/16/20 Unknown Creatinine 0.9 mg/dL (0.8-1.3) 08/16/20 Unknown Estimated GFR > 60 ml/min 08/16/20 Unknown BUN/Creatinine Ratio 37 % 08/16/20 Unknown Glucose 233 mg/dL (75-100) H 08/16/20 Unknown Calcium 9.5 mg/dL (8.4-10.2) 08/16/20 Unknown Microbiology: Microbiology 08/15/20 10:45 Peripheral/Venous Blood Culture - Preliminary Culture in Progress 08/15/20 10:45 Peripheral/Venous Blood Culture - Preliminary Culture in Progress Jones/IV: IV Catheter Type [Left Hand] INT / Saline Lock Active Medications - Current Medications Current Medications: Generic Name Dose Route Start Last Admin Trade Name Freq PRN Reason Stop Dose Admin Enoxaparin Sodium 40 mg 08/16/20 22:00 Enoxaparin SUB-Q QDAY@2200 [facility] Protocol Famotidine 20 mg 08/16/20 11:00 08/16/20 11:18 Pepcid IV 20 mg BID NADJA Administration Fentanyl 50 mcg 08/16/20 10:30 Sublimaze IV Q10MIN PRN ANALGESIA Hydrophilic Ointment 1 applic 08/16/20 10:30 Vaseline Lip Therapy TP Q2HR PRN Dry Lips Fentanyl Citrate 2,000 mcg in 100 mls @ 5 mls/hr 08/16/20 01:00 08/16/20 10:22 Fentanyl Drip Premix IV 4 mcg/kg/hr TITR NADJA 20 mls/hr Administration Protocol 1 MCG/KG/HR Ceftriaxone Sodium 2 gm in 100 mls @ 200 mls/hr 08/16/20 09:30 08/16/20 11:19 Rocephin/Ns 2 Gm/100 Ml IV 200 mls/hr Q24HR [facility] Administration Protocol Vancomycin HCl 2,000 mg/ 540 mls @ 250 mls/hr 08/16/20 10:30 08/16/20 11:48 Sodium Chloride IV 08/16/20 12:39 250 mls/hr ONCE ONE Administration Vancomycin HCl 1,750 mg/ 535 mls @ 333.333 mls/hr 08/16/20 22:00 Sodium Chloride IV Q12HR NADJA Fentanyl Citrate 2,000 mcg in 100 mls @ 5 mls/hr 08/16/20 11:00 08/15/20 11:21 Fentanyl Drip Premix IV 4 mcg/kg/hr TITR NADJA 20 mls/hr Administration Protocol 1 MCG/KG/HR Lorazepam 2 mg 08/15/20 21:26 08/16/20 10:56 Ativan IV 2 mg Q4H PRN Administration Agitation Multi-Ingred Cream/Lotion/Oil/Oint 1 applic 08/16/20 10:30 Artificial Tears Ophth Oint OU Q4HR PRN Dry Eye(s)
[2020-08-16] MEDS ORDERED: fentaNYL 100 MCG/2 ML INJ ONE (13:40)
--- NOTE | 2020-08-16 14:11 | Consultation ---
History of Present Illness - Reason for Consult Consult date: 08/16/20 sepsis Requesting physician: AMBER HOROWITZ - History of Present Illness 55 years old male with history of diabetes mellitus, hypertension, peripheral vascular disease, tobacco abuse, alcohol abuse, known to infectious disease service due to left foot diabetic ulceration infected with MRSA, admitted on 08/16/2020 due to altered mental status, lethargy found by his friends and shortness of breath. Unfortunately, patient is currently intubated on Levophed. In the ED he was admitted with shortness of breath and then required intubation and started on pressors. There was mention of a cardiac arrest in the ED however no documentation found. He was noted to have multiple wounds, however right elbow wound was large and draining. Of note, patient was admitted from February 26, 2020 until March 02, 2020 found to have left foot abscess status post excision and drainage, cultures grew MRSA. Patient was treated with vancomycin IV for 3 weeks until 03/20/2020. Patient has had multiple peripheral vascular procedures. On arrival, temperature 98.8, HR 66, RR 20, BP 114/69. Initial WBC 16.7. Hemoglobin 12.4. Platelets 359. Creatinine 0.9. Glucose 233. Reportedly his SARS-CoV-2 PCR was negative. Review of Systems: Unable to obtain patient is intubated Past History Past Medical History: diabetes, hypertension, hyperlipidemia, other (Peripheral vascular disease) Past Surgical History: Other Social history: no significant social history Family history: no significant family history Medications and Allergies Allergies Allergy/AdvReac Type Severity Reaction Status Date / Time vancomycin AdvReac Rash Verified 08/16/20 10:15 Home Medications Medication Instructions Recorded Confirmed Last Taken Type metFORMIN [Glucophage] 500 mg PO BID #60 tablet 05/18/18 07/07/20 08/21/19 21:00 Rx Gabapentin 300 mg PO Q8HR #90 capsule 03/02/20 07/07/20 Unknown Rx Sodium Hypochlorite [Dakin's Half 1 applic TP BID bottle 03/02/20 07/07/20 Unknown Rx Strength] amLODIPine 10 mg PO QDAY #30 tablet 03/02/20 07/07/20 Unknown Rx Baclofen 10 mg PO BID 07/07/20 07/07/20 Unknown History predniSONE [Deltasone] 20 mg PO BID 07/07/20 07/07/20 Unknown History traZODone [Desyrel] 50 mg PO QHS 07/07/20 07/07/20 Unknown History Aspirin EC [Halfprin EC] 81 mg PO QDAY tablet 07/08/20 Unknown Rx Clopidogrel [Plavix] 75 mg PO QDAY tablet 07/08/20 Unknown Rx Famotidine [Pepcid] 20 mg PO BID tablet 07/08/20 Unknown Rx Folic Acid [Folvite] 1 mg PO QDAY tablet 07/08/20 Unknown Rx HYDROcodone/APAP 10-325 [[place] 1 each PO Q6HR PRN #12 07/08/20 Unknown Rx 10-325 mg TAB] Mirtazapine [Remeron 15mg TAB] 15 mg PO QHS tablet 07/08/20 Unknown Rx Thiamine [Vitamin B-1] 100 mg PO QDAY tablet 07/08/20 Unknown Rx Active Meds: Active Medications Enoxaparin Sodium (Enoxaparin) 40 mg SUB-Q QDAY@2200 NADJA; Protocol Famotidine (Pepcid) 20 mg IV BID NADJA Last Admin: 08/16/20 11:18 Dose: 20 mg Documented by: Fentanyl (Sublimaze) 50 mcg IV Q10MIN PRN PRN Reason: ANALGESIA Hydrophilic Ointment (Vaseline Lip Therapy) 1 applic TP Q2HR PRN PRN Reason: Dry Lips Vancomycin HCl 1,750 mg/ (Sodium Chloride) 535 mls @ 333.333 mls/hr IV Q12HR NADJA Fentanyl Citrate (Fentanyl Drip Premix) 2,000 mcg in 100 mls @ 5 mls/hr IV TITR [facility]; Protocol Last Admin: 08/15/20 11:21 Dose: 4 mcg/kg/hr, 20 mls/hr Documented by: Cefepime HCl (Cefepime/Ns 2 Gm/100 Ml) 2 gm in 100 mls @ 200 mls/hr IV Q8HR NADJA; Protocol Lorazepam (Ativan) 2 mg IV Q4H PRN PRN Reason: Agitation Last Admin: 08/16/20 10:56 Dose: 2 mg Documented by: Multi-Ingred Cream/Lotion/Oil/Oint (Artificial Tears Ophth Oint) 1 applic OU Q4HR PRN PRN Reason: Dry Eye(s) Physical Examination - Physical Exam Narrative exam: General appearance: Sedated in no acute distress intubated Eyes: anicteric sclerae, moist conjunctivae; no lid-lag; PERRLA HENT: Atraumatic; oropharynx clear limited endotracheal tube in place Lungs: CTA CV: RRR no murmur Abdomen: Soft, non-tender; no masses or hepatosplenomegaly Extremities: Left foot partial amputation healed. Right elbow with an open wound, deep, draining serous fluid Skin: Multiple lower extremity skin tear. Psych: Sedated Neuro: Sedated - - Constitutional Vitals: Vital Signs Temp Pulse Resp BP Pulse Ox 97.9 F 79 16 152/84 99 08/16/20 09:50 08/16/20 12:58 08/16/20 12:45 08/16/20 12:58 08/16/20 12:58 Temperature -Last 24 Hours Temperature 97.9 F Temperature 99.0 F Temperature 98.4 F Temperature 98.8 F Results - Labs CBC & Chem 7: 08/16/20 Unknown 08/16/20 Unknown Labs: Abnormal lab results 08/15/20 08/16/20 08/16/20 Range/Units 21:10 04:30 Unknown WBC 16.7 H (4.5-11.0) K/mm3 [place] # (Auto) 1.0 H (0.0-0.8) K/mm3 Seg Neutrophils % 79.9 H (40.0-70.0) % Seg Neutrophils # 13.4 H (1.8-7.7) K/mm3 APTT (24.2-36.6) Sec. ABG pH 7.338 L 7.345 L (7.350-7.450) pH Units ABG pO2 105.9 H 134.5 H (80.0-90.0) mm Hg ABG HCO3 19.2 L (20.0-26.0) mmol/L ABG Base Excess -5.9 L -5.2 L (-2.0-3.0) mmol/L ABG Hemoglobin 12.3 L 12.1 L (14.0-18.0) gm/dl Carbon Dioxide (22-30) mmol/L BUN (9-20) mg/dL Glucose (75-100) mg/dL 08/16/20 08/16/20 Range/Units Unknown Unknown WBC (4.5-11.0) K/mm3 [place] # (Auto) (0.0-0.8) K/mm3 Seg Neutrophils % (40.0-70.0) % Seg Neutrophils # (1.8-7.7) K/mm3 APTT 23.9 L (24.2-36.6) Sec. ABG pH (7.350-7.450) pH Units ABG pO2 (80.0-90.0) mm Hg ABG HCO3 (20.0-26.0) mmol/L ABG Base Excess (-2.0-3.0) mmol/L ABG Hemoglobin (14.0-18.0) gm/dl Carbon Dioxide 17 L (22-30) mmol/L BUN 33 H (9-20) mg/dL Glucose 233 H (75-100) mg/dL Assessment and Plan Cultures: 08/15/2020 blood cultures no growth today Assessment: 55 years old male with history of diabetes mellitus, hypertension, peripheral vascular disease, alcohol abuse, tobacco abuse, left foot diabetic ulceration with an abscess secondary to MRSA in February 2020, admitted on 08/16/2020 due to altered mental status lethargy unresponsive: #Severe sepsis with septic shock: Status post cardiac arrest? Per ED report. Currently on pressors, with leukocytosis. Source unclear, possible right elbow infection. Chest x-ray pending. Urinalysis pending. SARS-CoV-2 PCR pending however reportedly negative. #Acute hypoxemic respiratory failure: Patient intubated #Right elbow ulcer: Likely infected ? exposed joint. #Altered mental status: Likely secondary to sepsis #Peripheral vascular disease: Very cold feet bilaterally. #Multiple skin tears in lower extremities: Likely secondary to peripheral vascular disease Recommendations: -Follow-up blood cultures -Obtain sputum culture -Obtain LFTs and procalcitonin -Obtain urinalysis and urine culture -Follow-up SARS-CoV-2 PCR, reportedly negative -Follow-up chest x-ray and right elbow x-ray -Continue vancomycin with PK consult -Stop ceftriaxone -Start cefepime IV 2 g every 8 hours -Obtain wound care consultation Will follow. Pastora Gongora MD Infectious Diseases [place] [facility] ([facility]) M [phone] O [phone]
[2020-08-16] MEDS: fentaNYL DRIP Premix 2,000 MCG/100 ML BAG IV SCH ×2 (14:41→19:05)
[2020-08-16 15:07] LABS: Basophils % (Auto) 0.1 % (0.0-1.8); Eosinophils % (Auto) 0.2 % (0.0-4.3); Hematocrit 35.3 % (35.5-45.6); Hemoglobin 11.8 gm/dl (11.8-15.2); Lymphocytes # (Auto) 2.4 K/mm3 (1.2-5.4); Lymphocytes % (Auto) 23.9 % (13.4-35.0); Mean Corpuscular HGB Conc 33 % (32-34); Mean Corpuscular Volume 92 fl (84-94); Monocytes # (Auto) 0.7 K/mm3 (0.0-0.8); Monocytes % (Auto) 6.7 % (0.0-7.3); Platelet Count 245 K/mm3 (140-440); Red Blood Count 3.84 M/mm3 (3.65-5.03); Red Cell Distribution Width 15.7 % (13.2-15.2)
[2020-08-16] MEDS: CEFEPIME/NS 2 GM/100 ML 2 GM/100 ML BAG IV SCH ×2 (15:12→21:41)
--- NOTE | 2020-08-16 15:13 | Consultation ---
PULMONARY CRITICAL CARE CONSULT NOTE CONSULTING PHYSICIAN: Dr. Tavon David. REASON FOR CONSULTATION: Acute toxic metabolic encephalopathy, acute hypoxemic respiratory failure and severe sepsis with shock. CHIEF COMPLAINT AND HISTORY OF PRESENT ILLNESS: As follows: I should premise this note by stating that the system was down. There is a paucity of medical records. History is based on review of whatever medical records I did have as well as discussions with the Emergency Room personnel. The patient is a 55-year-old male, past medical history is unknown, who was brought into the Emergency Room essentially after being found down with altered mental status. In retrospect, upon review of medical records, he does have a history of hypertension, cerebrovascular accident with left hemiparesis and alcohol abuse as well as chronic pain syndrome who was brought into the Emergency Room, especially after being found down. In the Emergency Room, further evaluation by the Emergency Room physician revealed that the patient required intubation for mechanical ventilatory support and airway protection. The patient also became hypotensive while in the Emergency Room. A lumbar puncture was done that results are pending, but there was also a possibility of possible herpes encephalitis as part of the differential diagnosis. He was started on a broad-spectrum antibiotic coverage for possible meningitis as well as treatment for acyclovir. We are asked to assist with management. When I stopped by to see the patient in the Emergency Room, he was on the mechanical ventilator, nonresponsive. He had just had, I believe, left IJ central access placed and was started on Levophed drip. I do not have any history of vomiting or overt aspiration. The above is as much of the history of presentation as I have. PAST MEDICAL HISTORY: Again, from the records, significant for diabetes, hypertension, cerebrovascular accident, nicotine dependence, alcohol abuse, chronic pain syndrome, history of a DVT in the past. PAST SURGICAL HISTORY: He has had a left great toe amputation. MEDICATIONS: Medications that he was on at the time I stopped by to see him were reviewed. There was no medication administration record unfortunately for me to review at that time, but his medications included, he had received a banana bag with thiamine, folic acid, usual multivitamins. He was on a Levophed drip, I believe, it was given at 8 mcg per minute. Fentanyl drip had been ordered. He had received vancomycin, I believe a gram of vancomycin, also received Rocephin and had been started on acyclovir. ALLERGIES: Unknown. DIET: Obese gentleman, acute weight loss or gain history is unknown. FAMILY AND SOCIAL HISTORY: Apparently lived in the community, has a history of alcohol abuse and tobacco abuse. Illicit drug use or abuse history is unknown. There is a history of narcotic drug abuse, though. Family history is otherwise unknown. REVIEW OF SYSTEMS: Unobtainable secondary to patient's medical and mental condition. Since he has been in the Emergency Room, no gross hematochezia or melena, no gross hematuria, no hematemesis, no bloody tracheal secretions, no witnessed seizures have been reported. Review of systems is otherwise unobtainable or as in the body of the history above. PHYSICAL EXAMINATION: VITAL SIGNS: At the time that I stopped by to see him, he was afebrile, pulse was around 68, respiratory rate was 24, blood pressure was about 114/68 that was on Levophed drip. O2 sats were 99% that was on the mechanical ventilator settings, assist control mode of ventilation, tidal volume 450, set rate of 20, PEEP of 8, and 40% FiO2 at that time. GENERAL: Again, he is a middle-aged obese male, normocephalic, on the mechanical ventilator without significant patient ventilator dyssynchrony. HEAD, EYES, EARS, NOSE AND THROAT: Anicteric. No conjunctival erythema. Endotracheal tube was taped around 24 cm at the lips. No gross jugular venous distention. Left IJ central line adjustment in place. No thyromegaly. Grossly, there were no palpable lymph nodes in the supraclavicular or submandibular lymph node chains. LUNGS: Auscultation of both lung ortiz revealed good bilateral air movement with bilateral rhonchi, no wheezing. HEART: Heart sounds 1 and 2 are heard, regular rate and rhythm at the time of my evaluation without overt rubs or murmurs. ABDOMEN: Soft, full, protuberant. Bowel sounds are positive, nontender, no palpable hepatosplenomegaly. EXTREMITIES: Without overt digital clubbing or cyanosis. He had trace pedal edema. Pedal pulses were palpable about 1+ bilaterally. NEUROLOGICALLY: Pupils are equal, round, about 2 mm, sluggishly reactive to light. Extraocular muscle movements could not be assessed. He had some spontaneous movements to his extremities, but the overall picture looks like one of obtundation. SKIN: Very poor turgor. He had multiple abrasions at the skin of his lower extremities, in particular. The same thing, his upper extremities, his left elbow, his digits on the left hand. He had open sores to the tips of the fingers. Please see the wound care nurse's notes for full description of the skin otherwise. PSYCHIATRIC: Mood and affect could not be assessed. LABORATORY DATA: From my review, arterial blood gas showed a pH of 7.34, pCO2 of 37, pO2 of 106 and that was on, I believe 40% FiO2. I feel the labs were coming back, but the main labs were yet to be back from the lab. BUN and creatinine were within normal range. I do not have any radiographic studies for review, unable to pull up the chest x-ray and I believe he has been pancultured per the Emergency Room physician. ASSESSMENT: 1. Acute hypoxemic respiratory failure, on mechanical ventilatory support. 2. Acute encephalopathy, presumably toxic metabolic. 3. Severe sepsis with shock. 4. History of diabetes. 5. History of a cerebrovascular accident with persistent left hemiparesis. 6. History of alcohol abuse. 7. Hypertension. 8. Chronic pain syndrome. 9. History of deep venous thrombosis. PLAN: We await further lab testing. The system is down at this point, but we were able to manually write labs. I will be ordering amongst other things, a procalcitonin level, a CRP level. I do agree with broad-spectrum antibiotic coverage. Infectious Disease consultation will be at the behest of the attending physician. Anti-infectives will be deescalated based on results of clinical and microbiologic data. Oxygen will be weaned to keep sats greater than or equal to over 90%. Aspiration precautions. Ventilator-associated pneumonia bundle has been introduced. Bronchodilators will be on a p.r.n. basis with pulmonary hygiene per the respiratory therapist. A CT of the brain will be ordered if that has not been done already. For now, we will await CT of the brain before beginning full anticoagulation. He does have a history of VTE. VTE evaluation will be done. Bilateral lower extremity Dopplers will be done plus or minus a CT angiogram and if any VTE is noted, he will be addressed as such. He will be placed on GI and DVT prophylaxis in the meantime. Flu and pneumonia vaccination will be addressed per protocol, volume resuscitation will be continued and Levophed will be weaned to keep mean arterial pressures greater than or equal to about 65 mmHg. Thank you very much for the consult. We will follow along and make further recommendations as picture progresses/becomes clearer. He is critically ill on life-sustaining interventions including mechanical ventilatory support and vasopressor support, at very high risk of from cardiopulmonary system decompensation. At this time, I spent about 35-40 minutes of critical care time without overlap and excluding any procedural time that may be necessary. JOB# [id number] JEFF/CAROL RAE
[2020-08-16 15:19] LABS: Alanine Aminotransferase 15 units/L (7-56); Albumin 3.1 g/dL (3.9-5); BUN/Creatinine Ratio 36; Blood Urea Nitrogen 32 mg/dL (9-20); Calcium 9.5 mg/dL (8.4-10.2); Hemolysis Index 4
[2020-08-16 17:24] LABS: Bilirubin,Urine NEG (Negative); Blood,Urine MOD (Negative); Color,Urine Yellow (Yellow); Mucus,Urine FEW /HPF
--- NOTE | 2020-08-16 17:34 | Cat Scan Report ---
CTA NECK WITH CONTRAST HISTORY: Change in mental status COMPARISON: CT scan of the head obtained at 5:39 AM on 08/15/2020 TECHNIQUE: Routine CTA of the neck was performed. 3-D/MIP reformats were postprocessed. Percentage s tenosis is determined by direct quantitative measurements of diseased internal carotid artery diamete r compared with normal distal internal carotid artery reference segments or by criteria similar to NA SCET where applicable.All CT scans at this location are performed using CT dose reduction for ALARA b y means of automated exposure control CONTRAST: 100 ml of Omnipaque 350 FINDINGS: Aortic arch: No significant abnormality. Cervical vertebral arteries: No significant abnormality. Common carotid arteries: No significant abnormality. Carotid bifurcations: Nonstenotic calcified atheromatous plaques in the right proximal internal carot id artery on the left side, calcified atheromatous plaque with less than 50% narrowing at the origin Cervical internal carotid arteries: Normal from bifurcation up to skull base; though no focal area of stenoses, luminal appears to be somewhat smaller Additional findings: Endotracheal tube in place IMPRESSION: 1. Calcified atheromatous plaque in the proximal left internal carotid artery with less than 50% sten oses Signer Name: Shannan Ferguson MD Signed: 08/15/2020 8:11 AM Workstation Name: [id number]
--- NOTE | 2020-08-16 17:34 | Cat Scan Report ---
CTA HEAD WITH CONTRAST HISTORY: Change in mental status COMPARISON: None. TECHNIQUE: Routine non-contrast CT Head, CTA of the head and post-contrast CT Head are performed. 3-D /MIP reformats postprocessed. All CT scans at this location are performed using CT dose reduction for ALARA by means of automated exposure control CONTRAST: 100 ml of Omnipaque 350 FINDINGS: CTA Head: Intracranial vertebral arteries: No significant abnormality. Basilar artery: No significant abnormality. Posterior cerebral arteries: No significant abnormality. Intracranial internal carotid arteries: Vascular calcification in both internal carotid arteries; in the proximal communicating segment bilaterally, vascular calcification is narrowing the lumen of the internal carotid artery by approximately 50%. Approximately 50%; distal communicating segment of the internal carotid artery normal bilaterally Anterior cerebral arteries: No significant abnormality. Middle cerebral arteries: No significant abnormality. Dural venous sinuses:Not optimally opacified. No significant abnormality. Additional findings: None. IMPRESSION: 1. Vascular calcification in the proximal communicating segment of both internal carotid arteries xu rowing the lumen; distal communicating segments are normal Signer Name: Shannan Ferguson MD Signed: 08/15/2020 8:18 AM Workstation Name: [id number]
--- NOTE | 2020-08-16 17:35 | Cat Scan Report ---
CT CERVICAL SPINE WITHOUT CONTRAST INDICATION / CLINICAL INFORMATION: Neck pain. TECHNIQUE: Axial CT images were obtained through the cervical spine. Sagittal and coronal reformatted images were produced. All CT scans at this location are performed using CT dose reduction for ALARA by means of automated exposure control. COMPARISON: None available. FINDINGS: VERTEBRAE: No significant abnormality. ALIGNMENT: No significant abnormality. DISC SPACES: Mild discogenic spondylosis at C5-6 and C6-7. FACET JOINTS: No significant abnormality. CRANIOCERVICAL JUNCTION:No significant abnormality. SPINAL CANAL: No significant abnormality. PARASPINAL SOFT TISSUES: No significant abnormality. ADDITIONAL FINDINGS: None. LUNG APICES: No significant abnormality of visualized lungs. IMPRESSION: 1. No acute abnormality. Signer Name: Leticia Belle MD Signed: 08/15/2020 7:44 AM Workstation Name: [id number]
--- NOTE | 2020-08-16 17:36 | Cat Scan Report ---
CT HEAD WITHOUT CONTRAST INDICATION / CLINICAL INFORMATION: Altered Mental Status. TECHNIQUE: All CT scans at this location are performed using CT dose reduction for ALARA by means of automated e xposure control. COMPARISON: CT dated 05/03/18 FINDINGS: HEMORRHAGE: None. EXTRA-AXIAL SPACES: Normal in size and morphology for the patient's age. VENTRICULAR SYSTEM: Normal in size and morphology for the patient's age. CEREBRAL PARENCHYMA: Old left frontal cortical infarct is new since the prior study. MIDLINE SHIFT / HERNIATION: None. CEREBELLUM / BRAINSTEM: No significant abnormality. ORBITS: Normal as visualized. SOFT TISSUES: No significant abnormality. SKULL: No significant abnormality. PARANASAL SINUSES / MASTOID AIR CELLS: Normal as visualized. ADDITIONAL FINDINGS: None. IMPRESSION: 1. No acute intracranial abnormality. 2. Old left frontal cortical infarct new since prior study. Signer Name: Leticia Belle MD Signed: 08/15/2020 6:10 AM Workstation Name: [id number]
--- NOTE | 2020-08-16 19:04 | Vascular Lab Report ---
DUPLEX DOPPLER LOWER EXTREMITY VEINS, BILATERAL INDICATION / CLINICAL INFORMATION: swelling. TECHNIQUE: Duplex doppler imaging was performed through the veins of both lower extremities using venous melany ezequiel and other maneuvers. COMPARISON: None available. FINDINGS: RIGHT COMMON FEMORAL VEIN: Negative. RIGHT FEMORAL VEIN: Negative. RIGHT POPLITEAL VEIN: Negative. RIGHT CALF VEINS: Negative. LEFT COMMON FEMORAL VEIN: Negative. LEFT FEMORAL VEIN: Negative. LEFT POPLITEAL VEIN: Negative. LEFT CALF VEINS: Negative. ADDITIONAL FINDINGS: None. IMPRESSION: 1. No sonographic evidence for DVT in either lower extremity. Signer Name: Hector Pedroza MD Signed: 08/16/2020 6:59 PM Workstation Name: [id number]
[2020-08-16] MEDS: ENOXAPARIN 40 MG/0.4 ML INJ SUB-Q SCH (21:40)
[2020-08-16] MEDS: VANCOMYCIN 1,750 MG in SODIUM CHLORIDE 0.9% 500 ML 500 ML IV SCH (21:41)
[2020-08-17] MEDS: fentaNYL DRIP Premix 2,000 MCG/100 ML BAG IV SCH ×5 (00:08→19:30)
[2020-08-17] MEDS: LORazepam 2 MG/ML VIAL IV PRN ×4 (02:49→20:05)
[2020-08-17] MEDS: CEFEPIME/NS 2 GM/100 ML 2 GM/100 ML BAG IV SCH ×3 (05:34→22:30)
--- NOTE | 2020-08-17 08:05 | Progress Note ---
Assessment and Plan Cultures: 08/15/2020 blood cultures no growth today 08/15/2020 CSF culture pending Assessment: 55 years old male with history of diabetes mellitus, hypertension, peripheral vascular disease, alcohol abuse, tobacco abuse, left foot diabetic ulceration with an abscess secondary to MRSA in February 2020, admitted on 08/16/2020 due to altered mental status lethargy unresponsive: #Severe sepsis with septic shock: No cardiac arrest in the ED per discussion with ED provider. Off pressors, with leukocytosis. Source unclear, possible right elbow infection? vs pneumonia. Chest x-ray possible right lower lobe infiltrate. Urinalysis negative. SARS-CoV-2 PCR negative. Patient underwent lumbar puncture in the emergency room, ED provider kindly contacted me with results -WBCs 10, RBCs 381. This is not consistent with meningitis. #Possible pneumonia #Acute hypoxemic respiratory failure: Patient intubated #Right elbow ulcer: Likely infected ? exposed joint. Elbow x-ray reading pendin g. #Altered mental status: Likely secondary to sepsis versus metabolic. ?drugs. CT head shows old infarct. #Peripheral vascular disease: Very cold feet bilaterally. Arterial Doppler without any evidence of PAD?. Previous arterial Doppler abnormal. #Multiple skin tears in lower extremities: Likely secondary to peripheral vascular disease Recommendations: -Follow-up blood cultures -Follow-up sputum culture -Follow-up procalcitonin -Follow-up chest x-ray and right elbow f-nai-fimlicfb readings -Continue vancomycin with PK consult -Continue cefepime IV 2 g every 8 hours -Obtain wound care consultation -Obtain urine drug screen Will follow. Pastora Gongora MD Infectious Diseases [employer] [employer] [facility] ([facility]) M [phone] O [phone] Subjective Date of service: 08/17/20 Principal diagnosis: Sepsis Interval history: Patient remains intubated, FiO2 60, PEEP 6, no need for pressors overnight, no fever. Objective - Exam Narrative Exam: General appearance: Sedated in no acute distress intubated Eyes: anicteric sclerae, moist conjunctivae; no lid-lag; PERRLA HENT: Atraumatic; oropharynx clear limited endotracheal tube in place Lungs: CTA CV: RRR no murmur Abdomen: Soft, non-tender; no masses or hepatosplenomegaly Extremities: Left foot partial amputation healed. Right elbow with an open wound, deep, draining serous fluid Skin: Multiple lower extremity skin tear. Psych: Sedated Neuro: Sedated - - Constitutional Vitals: Vital Signs Temp Pulse Resp BP Pulse Ox 98.9 F 85 20 130/80 98 08/17/20 04:00 08/17/20 07:30 08/17/20 07:30 08/17/20 07:30 08/17/20 07:30 Temperature -Last 24 Hours Temperature 98.9 F Temperature 98.3 F Temperature 98.9 F Temperature 99.2 F Temperature 97.9 F - Labs CBC & Chem 7: 08/16/20 Unknown 08/16/20 Unknown Labs: Abnormal lab results 08/16/20 08/16/20 08/16/20 Range/Units 08:59 14:45 14:45 Hct 35.3 L (35.5-45.6) % RDW 15.7 H (13.2-15.2) % D-Dimer (0-234) ng/mlDDU POC ABG pO2 (83-108) mmHg ABG Chloride (98-107) mmol/L ABG Glucose (65-95) mg/dL Potassium 3.4 L (3.6-5.0) mmol/L Chloride 109.0 H (98-107) mmol/L BUN 32 H (9-20) mg/dL Glucose 186 H (75-100) mg/dL POC Glucose (70-105) mg/dL Phosphorus 1.50 L (2.5-4.5) mg/dL Magnesium 1.60 L (1.7-2.3) mg/dL C-Reactive Protein (0.00-1.30) mg/dL Total Protein 6.0 L (6.3-8.2) g/dL Albumin 3.1 L (3.9-5) g/dL Arterial Blood Glucose (65-95) mg/dL Arterial Blood Ionized Calcium (4.6-5.3) mg/dL 08/16/20 08/16/20 08/16/20 Range/Units 14:45 14:45 14:45 Hct (35.5-45.6) % RDW (13.2-15.2) % D-Dimer 925.88 H 882.17 H (0-234) ng/mlDDU POC ABG pO2 (83-108) mmHg ABG Chloride (98-107) mmol/L ABG Glucose (65-95) mg/dL Potassium (3.6-5.0) mmol/L Chloride (98-107) mmol/L BUN (9-20) mg/dL Glucose (75-100) mg/dL POC Glucose (70-105) mg/dL Phosphorus (2.5-4.5) mg/dL Magnesium (1.7-2.3) mg/dL C-Reactive Protein 2.70 H (0.00-1.30) mg/dL Total Protein (6.3-8.2) g/dL Albumin (3.9-5) g/dL Arterial Blood Glucose (65-95) mg/dL Arterial Blood Ionized Calcium (4.6-5.3) mg/dL 08/16/20 08/17/20 08/17/20 Range/Units 17:42 00:06 03:40 Hct (35.5-45.6) % RDW (13.2-15.2) % D-Dimer (0-234) ng/mlDDU POC ABG pO2 60.8 L (83-108) mmHg ABG Chloride 115.0 H (98-107) mmol/L ABG Glucose 139 H (65-95) mg/dL Potassium (3.6-5.0) mmol/L Chloride (98-107) mmol/L BUN (9-20) mg/dL Glucose (75-100) mg/dL POC Glucose 169 H 125 H (70-105) mg/dL Phosphorus (2.5-4.5) mg/dL Magnesium (1.7-2.3) mg/dL C-Reactive Protein (0.00-1.30) mg/dL Total Protein (6.3-8.2) g/dL Albumin (3.9-5) g/dL Arterial Blood Glucose 139 H (65-95) mg/dL Arterial Blood Ionized Calcium 5.5 H (4.6-5.3) mg/dL 08/17/20 Range/Units 05:52 Hct (35.5-45.6) % RDW (13.2-15.2) % D-Dimer (0-234) ng/mlDDU POC ABG pO2 (83-108) mmHg ABG Chloride (98-107) mmol/L ABG Glucose (65-95) mg/dL Potassium (3.6-5.0) mmol/L Chloride (98-107) mmol/L BUN (9-20) mg/dL Glucose (75-100) mg/dL POC Glucose 139 H (70-105) mg/dL Phosphorus (2.5-4.5) mg/dL Magnesium (1.7-2.3) mg/dL C-Reactive Protein (0.00-1.30) mg/dL Total Protein (6.3-8.2) g/dL Albumin (3.9-5) g/dL Arterial Blood Glucose (65-95) mg/dL Arterial Blood Ionized Calcium (4.6-5.3) mg/dL
--- NOTE | 2020-08-17 08:36 | Consultation ---
History of Present Illness Consult date: 08/15/20 History of present illness: [facility] Date of Service: 08/15/2020 06:49:01 Impression: Unresponsiveness in patient with finding of distant left frontal infarct on CT head. Last known well is unknown and neurologic exam is limited. Consider toxic/metabolic etiology including possible drug/substance induced vs. basilar artery occlusion/LVO vs. postictal state from unwitnessed seizure or ongoing subclinical status epilepticus (related to distant cerebral infarct seen on CT head) Comments/Sign-Out: TPA is not an option since last known well is unknown. Metrics: Last Known Well: Unknown [facility] Notification Time: 08/15/2020 06:48:39 Arrival Time: 08/15/2020 06:15:00 Stamp Time: 08/15/2020 06:49:01 Time First Login Attempt: 08/15/2020 06:51:28 Video Start Time: 08/15/2020 06:51:28 Symptoms: unresponsive NIHSS Start Assessment Time: 08/15/2020 06:59:55 Patient is not a candidate for Alteplase/Activase. Patient was not deemed candidate for Alteplase/Activase thrombolytics because of last known well unknown. 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 ED Physician notified of diagnostic impression and management plan on 08/15/2020 07:03:26 Our recommendations are outlined below. Recommendations: Activate Stroke Protocol Admission/Order Set Stroke/Telemetry Floor Neuro Checks Bedside Swallow Eval DVT Prophylaxis IV Fluids, Normal Saline Head of Bed 30 Degrees Euglycemia and Avoid Hyperthermia (PRN Acetaminophen) Due to system wide EMR access issue, the following pending tests/recs for ongoing care will be checked and facilitated by ED physician: f/u on BP, temp, basic labs including glucose f/u on CTA head/neck read by radiology-- if LVO, ED physician agrees to arrange transfer for thrombectomy If no LVO, ED physician agrees to have patient admitted for ongoing toxic/metabolic workup, infectious workup if patient has fever/leukocytosis, and STAT EEG to evaluate for subclinical seizure activity Routine Consultation with Inhouse Neurology for Follow up Care Sign Out: Discussed with Emergency Department Provider at time of consult (as EMR access not possible) (delayed note entry due to system wide EMR access issues) History of Present Illness: Patient is a 55 year old Male. Patient was brought by EMS for symptoms of unresponsive per ED nurse via EMS: patient found at home on floor unresponsive after friends called 911 due to patient "not acting right" in backdrop of falling frequently and evidence of trauma. Per ED nurse, pupils constricted, no improvement with narcan. Last known well time is unknown. Exam is limited due to intubation; current nurse cannot tell me what he received for intubation. Examination: BP(unable to obtain from EMR presently), Pulse(unable to obtain from EMR presently), Blood Glucose(unable to obtain from EMR presently) NIHSS cannot be completed due to patient status. intubated recently for which he received sedative/paralytic, does not respond to auditory stim, does not follow commands, gaze midposition/conjugate, occulocephalic reflex absent, does not move any extremities to pain and no grimace to pain (nailbed compression in BUE, pinching bilateral inner thigh, sternal rub) Per ED physician, prior to intubation patient was breathing spontaneous, had activation of laryngeal muscles but otherwise unresponsive to verbal/painful stimuli and not moving any extremities Consent could not be obtained due to patient status and family not available. Due to the immediate potential for life-threatening deterioration due to u nderlying acute neurologic illness, I spent 10 minutes providing critical care. This time includes time for face to face visit via telemedicine, review of medical records, imaging studies and discussion of findings with providers, the patient and/or family. Dr Inez Benavidez [facility] Case [id number] Past History Past Medical History: diabetes, hypertension, hyperlipidemia, other (Peripheral vascular disease) Past Surgical History: Other Social history: no significant social history Family history: no significant family history Medications and Allergies Allergies Allergy/AdvReac Type Severity Reaction Status Date / Time vancomycin AdvReac Rash Verified 08/16/20 10:15 Home Medications Medication Instructions Recorded Confirmed Last Taken Type Gabapentin 300 mg PO Q8HR #90 capsule 03/02/20 08/16/20 Unknown Rx Sodium Hypochlorite [Dakin's Half 1 applic TP BID bottle 03/02/20 08/16/20 Unknown Rx Strength] amLODIPine 10 mg PO QDAY #30 tablet 03/02/20 08/16/20 Unknown Rx Baclofen 10 mg PO BID 07/07/20 08/16/20 Unknown History predniSONE [Deltasone] 20 mg PO BID 07/07/20 08/16/20 Unknown History traZODone [Desyrel] 50 mg PO QHS 07/07/20 08/16/20 Unknown History Aspirin EC [Halfprin EC] 81 mg PO QDAY tablet 07/08/20 08/16/20 Unknown Rx Famotidine [Pepcid] 20 mg PO BID tablet 07/08/20 08/16/20 Unknown Rx Folic Acid [Folvite] 1 mg PO QDAY tablet 07/08/20 08/16/20 Unknown Rx HYDROcodone/APAP 10-325 [[place] 1 each PO Q6HR PRN #12 07/08/20 08/16/20 Unknown Rx 10-325 mg TAB] Thiamine [Vitamin B-1] 100 mg PO QDAY tablet 07/08/20 08/16/20 Unknown Rx metFORMIN [Glucophage] 1,000 mg PO BID 08/16/20 08/16/20 Unknown History Active Meds: Active Medications Enoxaparin Sodium (Enoxaparin) 40 mg SUB-Q QDAY@2200 NADJA; Protocol Last Admin: 08/16/20 21:40 Dose: 40 mg Documented by: Famotidine (Pepcid) 20 mg IV BID NADJA Last Admin: 08/16/20 21:40 Dose: 20 mg Documented by: Fentanyl (Sublimaze) 50 mcg IV Q10MIN PRN PRN Reason: ANALGESIA Hydrophilic Ointment (Vaseline Lip Therapy) 1 applic TP Q2HR PRN PRN Reason: Dry Lips Vancomycin HCl 1,750 mg/ (Sodium Chloride) 535 mls @ 333.333 mls/hr IV Q12HR [facility] Last Admin: 08/16/20 21:41 Dose: 333.333 mls/hr Documented by: Fentanyl Citrate (Fentanyl Drip Premix) 2,000 mcg in 100 mls @ 5 mls/hr IV TITR [facility]; Protocol Last Admin: 08/17/20 04:30 Dose: 4 mcg/kg/hr, 20 mls/hr Documented by: Cefepime HCl (Cefepime/Ns 2 Gm/100 Ml) 2 gm in 100 mls @ 200 mls/hr IV Q8HR [facility]; Protocol Last Admin: 08/17/20 05:34 Dose: 200 mls/hr Documented by: Lorazepam (Ativan) 2 mg IV Q4H PRN PRN Reason: Agitation Last Admin: 08/17/20 02:49 Dose: 2 mg Documented by: Multi-Ingred Cream/Lotion/Oil/Oint (Artificial Tears Ophth Oint) 1 applic OU Q4HR PRN PRN Reason: Dry Eye(s) Physical Examination - Vital Signs Vital Signs: Vital Signs Pulse Resp BP 66 20 114/69 08/15/20 17:00 08/15/20 17:00 08/15/20 17:00 Results - Laboratory Findings CBC and BMP: 08/16/20 Unknown 08/16/20 Unknown Abnormal Lab Findings: Abnormal Labs 08/15/20 08/16/20 08/16/20 21:10 04:30 08:59 WBC Hct RDW [place] # (Auto) Seg Neutrophils % Seg Neutrophils # APTT D-Dimer ABG pH 7.338 L 7.345 L POC ABG pO2 ABG pO2 105.9 H 134.5 H ABG HCO3 19.2 L ABG Base Excess -5.9 L -5.2 L ABG Hemoglobin 12.3 L 12.1 L ABG Chloride ABG Glucose Potassium 3.4 L Chloride 109.0 H Carbon Dioxide BUN 32 H Glucose 186 H POC Glucose Phosphorus Magnesium C-Reactive Protein Total Protein 6.0 L Albumin 3.1 L Arterial Blood Glucose Arterial Blood Ionized Calcium 08/16/20 08/16/20 08/16/20 14:45 14:45 14:45 WBC Hct 35.3 L RDW 15.7 H [place] # (Auto) Seg Neutrophils % Seg Neutrophils # APTT D-Dimer 925.88 H ABG pH POC ABG pO2 ABG pO2 ABG HCO3 ABG Base Excess ABG Hemoglobin ABG Chloride ABG Glucose Potassium Chloride Carbon Dioxide BUN Glucose POC Glucose Phosphorus 1.50 L Magnesium 1.60 L C-Reactive Protein Total Protein Albumin Arterial Blood Glucose Arterial Blood Ionized Calcium 08/16/20 08/16/20 08/16/20 14:45 14:45 17:42 WBC Hct RDW [place] # (Auto) Seg Neutrophils % Seg Neutrophils # APTT D-Dimer 882.17 H ABG pH POC ABG pO2 ABG pO2 ABG HCO3 ABG Base Excess ABG Hemoglobin ABG Chloride ABG Glucose Potassium Chloride Carbon Dioxide BUN Glucose POC Glucose 169 H Phosphorus Magnesium C-Reactive Protein 2.70 H Total Protein Albumin Arterial Blood Glucose Arterial Blood Ionized Calcium 08/16/20 08/16/20 08/16/20 Unknown Unknown Unknown WBC 16.7 H Hct RDW [place] # (Auto) 1.0 H Seg Neutrophils % 79.9 H Seg Neutrophils # 13.4 H APTT 23.9 L D-Dimer ABG pH POC ABG pO2 ABG pO2 ABG HCO3 ABG Base Excess ABG Hemoglobin ABG Chloride ABG Glucose Potassium Chloride Carbon Dioxide 17 L BUN 33 H Glucose 233 H POC Glucose Phosphorus Magnesium C-Reactive Protein Total Protein Albumin Arterial Blood Glucose Arterial Blood Ionized Calcium 08/17/20 08/17/20 08/17/20 00:06 03:40 05:52 WBC Hct RDW [place] # (Auto) Seg Neutrophils % Seg Neutrophils # APTT D-Dimer ABG pH POC ABG pO2 60.8 L ABG pO2 ABG HCO3 ABG Base Excess ABG Hemoglobin ABG Chloride 115.0 H ABG Glucose 139 H Potassium Chloride Carbon Dioxide BUN Glucose POC Glucose 125 H 139 H Phosphorus Magnesium C-Reactive Protein Total Protein Albumin Arterial Blood Glucose 139 H Arterial Blood Ionized Calcium 5.5 H
--- NOTE | 2020-08-17 09:56 | XRay Report ---
CHEST 1 VIEW 6:38 AM INDICATION / CLINICAL INFORMATION: ett placement, resp failure,ams. COMPARISON: 07/07/20 FINDINGS: SUPPORT DEVICES: Endotracheal tube has been placed with the tip 5.5 cm above the felisha. HEART / MEDIASTINUM: No significant abnormality. LUNGS / PLEURA: Mild bilateral perihilar edema. No pneumothorax. ADDITIONAL FINDINGS: No significant additional findings. IMPRESSION: 1. Endotracheal tube in expected position. 2. Mild bilateral perihilar edema. Signer Name: Leticia Belle MD Signed: 08/15/2020 6:58 AM Workstation Name: [id number]
[2020-08-17] MEDS: FAMOTIDINE 20 MG/2 ML INJ IV SCH ×2 (10:08→22:28)
--- NOTE | 2020-08-17 11:03 | XRay Report ---
XR chest 1V ap INDICATION / CLINICAL INFORMATION: follow up respiratory failure. COMPARISON: 08/15/2020 FINDINGS: SUPPORT DEVICES: The tracheal tube terminates at the level of clavicular heads. Left internal jugular central venous access catheter terminates at the innominate/SVC junction. HEART / MEDIASTINUM: Unchanged. LUNGS / PLEURA: Airspace disease is improving compared to prior examination. Right basilar consolidat ion which is likely unchanged but patient is in a different positioning. No pneumothorax. ADDITIONAL FINDINGS: No significant additional findings. IMPRESSION: 1. Improving airspace disease. Signer Name: David Brink MD Signed: 08/17/2020 10:58 AM Workstation Name: [employer][id number]
[2020-08-17] MEDS: VANCOMYCIN 1,750 MG in SODIUM CHLORIDE 0.9% 500 ML 500 ML IV SCH ×2 (15:33→22:30)
--- NOTE | 2020-08-17 16:45 | Progress Note ---
Assessment and Plan -Severe sepsis with septic shock -Acute hypoxic respiratory failure on MVS -Acute encephalopathy (toxic, metabolic) -Acute alcohol intoxication -Possible aspiration pneumonitis...RLL infiltrate -Tobacco abuse disorder/Nicotine dependence -Diabetic foot ulcer -VAP bundle addressed -CXR, ABG in am -Lung protective strategies, [email or web address] protocol -Daily SBT, SAT -CIWA protocol, extreme agitation, Propofol added to current fentanyl infusion -Titrate sedation to RASS of -1 to -2 -Wean FIO2 for O2 sats >90% -Aspiration precautions, HOB >40 - Bronchodilators with pulmonary hygiene per RT - Accuchecks with glycemic control per SSI (While critically ill target blood glucose of 140-180 mg/dL; avoid hypoglycemia) - Avoid benzodiazepines, reduce the possibility of delirium - prn analgesia per CPOT score - Maintenance of sleep-wake cycle, avoid delirium -VTE prophylaxis with Lovenox -Stress ulcer prophylaxis Famotidine -Neurology work up on going -Avoid nephrotoxins, adjust all medications for GFR and CrCL -Jones catheter, will discontinue -Antibiotics per ID( Vancomycin and Cefepime), de-escalate as clinically indicated, follow cultures -Enteric nutritional support, has NGT in place. Confirm position and initiate nutritional support - Continue mobility protocol, frequent turning and off loading to prevent further pressure ulcers - Monitor hemodynamics closely -Supportive transfusions as indicated to keep HgB >7g/dL -Nicotine withdrawal precautions CONDITION: CRITICAL PROGNOSIS: GUARDED COMPLEXITY OF MEDICAL DECISION MAKING : HIGH CODE STATUS: FULL CODE The high probability of a clinically significant, sudden or life-threatening deterioration of the [respiratory, cardiovascular & neurologic] system(s) required my full and direct attention, intervention and personal management. The aggregate critical care time was [35] minutes without overlap. Time includes spent on; [x] Data Review and interpretation [x] Patient assessment and monitoring of vital signs [x] Documentation [x] Medication orders and management Subjective Date of service: 08/17/20 Principal diagnosis: Sepsis Interval history: 55 years old male with history of diabetes mellitus, hypertension, peripheral v ascular disease, alcohol abuse, tobacco abuse, left foot diabetic ulceration with an abscess secondary to MRSA in February 2020, admitted on 08/16/2020 due to altered mental status lethargy unresponsive .Urinalysis negative. SARS-CoV-2 PCR negatives/p lumbar puncture spinal tap -WBCs 10, RBCs 381. Objective - Exam Narrative Exam: Vitals reviewed General appearance: Present: no acute distress, well-nourished, other (Intubated on mechanical ventilation) ETT at 23cm at the lip, no asynchrony - EENT Eyes: Present: PERRL, ENT: NGT - Neck Neck: Present: supple, normal ROM - Respiratory Respiratory effort: normal Respiratory: bilateral: CTA - Cardiovascular Rhythm: regular Heart Sounds: Present: S1 & S2. Absent: gallop, rub - Extremities Extremities: no ischemia, No edema, Full ROM Left foot s/p amputations, cool - Abdominal General gastrointestinal: soft, non-tender, non-distended, normal bowel sounds Jones catheter draining clear urine - Integumentary Integumentary: Present: clear, warm, dry - Neurologic Neurologic: Sedated - Vital Signs - 12hr 08/17/20 08/17/20 08/17/20 05:00 05:04 05:30 Temperature Pulse Rate 97 H 94 H 88 Pulse Rate [ From Monitor] Respiratory 20 20 Rate Blood Pressure 134/85 134/85 116/73 O2 Sat by Pulse 96 95 96 Oximetry 08/17/20 08/17/20 08/17/20 06:00 06:30 07:00 Temperature Pulse Rate 87 88 84 Pulse Rate [ From Monitor] Respiratory 20 20 20 Rate Blood Pressure 118/73 117/76 123/75 O2 Sat by Pulse 94 95 96 Oximetry 08/17/20 08/17/20 08/17/20 07:15 07:30 08:00 Temperature 99 F Pulse Rate 98 H 85 87 Pulse Rate [ 87 From Monitor] Respiratory 20 20 Rate Blood Pressure 130/80 128/78 O2 Sat by Pulse 95 98 98 Oximetry 08/17/20 08/17/20 08/17/20 08:30 09:00 09:30 Temperature Pulse Rate 84 83 109 H Pulse Rate [ From Monitor] Respiratory 20 20 19 Rate Blood Pressure 112/73 119/71 138/83 O2 Sat by Pulse 98 99 93 Oximetry 08/17/20 08/17/20 08/17/20 10:00 10:30 11:00 Temperature Pulse Rate 123 H 94 H 117 H Pulse Rate [ From Monitor] Respiratory 16 20 21 Rate Blood Pressure 138/83 95/59 163/95 O2 Sat by Pulse 97 93 93 Oximetry 08/17/20 08/17/20 08/17/20 11:30 12:00 12:30 Temperature 99.6 F Pulse Rate 107 H 89 84 Pulse Rate [ 89 From Monitor] Respiratory 17 20 20 Rate Blood Pressure 111/67 113/69 116/67 O2 Sat by Pulse 98 97 99 Oximetry 08/17/20 08/17/20 08/17/20 13:00 13:30 14:00 Temperature Pulse Rate 92 H 86 85 Pulse Rate [ From Monitor] Respiratory 20 20 20 Rate Blood Pressure 127/76 113/69 120/70 O2 Sat by Pulse 96 93 93 Oximetry 08/17/20 08/17/20 08/17/20 14:30 14:41 15:00 Temperature Pulse Rate 122 H 102 H 134 H Pulse Rate [ From Monitor] Respiratory 13 18 Rate Blood Pressure 120/70 229/125 O2 Sat by Pulse 94 95 97 Oximetry 08/17/20 08/17/20 15:30 16:00 Temperature 98.3 F Pulse Rate 93 H 87 Pulse Rate [ 81 From Monitor] Respiratory 19 19 Rate Blood Pressure 229/125 92/52 O2 Sat by Pulse 92 91 Oximetry CBC and BMP: 08/16/20 Unknown 08/16/20 Unknown ABG, PT/INR, D-dimer: ABG ABG pH 7.324 (7.320-7.450) 08/17/20 03:40 POC ABG pCO2 41.8 mmHg (32.0-48.0) 08/17/20 03:40 ABG pCO2 37.4 mm Hg 08/16/20 04:30 POC ABG pO2 60.8 mmHg (83-108) L 08/17/20 03:40 ABG pO2 134.5 mm Hg (80.0-90.0) H 08/16/20 04:30 POC ABG HCO3 21.2 08/17/20 03:40 ABG O2 Saturation 98.5 % (95.0-99.0) 08/16/20 04:30 PT/INR, D-dimer PT 13.9 Sec. (12.2-14.9) 08/16/20 Unknown INR 1.06 (0.87-1.13) 08/16/20 Unknown D-Dimer 882.17 ng/mlDDU (0-234) H 08/16/20 14:45 D-Dimer 925.88 ng/mlDDU (0-234) H 08/16/20 14:45 Abnormal lab findings: Abnormal Labs 08/15/20 08/16/20 08/16/20 21:10 04:30 08:59 WBC Hct RDW [place] # (Auto) Seg Neutrophils % Seg Neutrophils # APTT D-Dimer ABG pH 7.338 L 7.345 L POC ABG pO2 ABG pO2 105.9 H 134.5 H ABG HCO3 19.2 L ABG Base Excess -5.9 L -5.2 L ABG Hemoglobin 12.3 L 12.1 L ABG Chloride ABG Glucose Potassium 3.4 L Chloride 109.0 H Carbon Dioxide BUN 32 H Glucose 186 H POC Glucose Phosphorus Magnesium C-Reactive Protein Total Protein 6.0 L Albumin 3.1 L Arterial Blood Glucose Arterial Blood Ionized Calcium 08/16/20 08/16/20 08/16/20 14:45 14:45 14:45 WBC Hct 35.3 L RDW 15.7 H [place] # (Auto) Seg Neutrophils % Seg Neutrophils # APTT D-Dimer 925.88 H ABG pH POC ABG pO2 ABG pO2 ABG HCO3 ABG Base Excess ABG Hemoglobin ABG Chloride ABG Glucose Potassium Chloride Carbon Dioxide BUN Glucose POC Glucose Phosphorus 1.50 L Magnesium 1.60 L C-Reactive Protein Total Protein Albumin Arterial Blood Glucose Arterial Blood Ionized Calcium 08/16/20 08/16/20 08/16/20 14:45 14:45 17:42 WBC Hct RDW [place] # (Auto) Seg Neutrophils % Seg Neutrophils # APTT D-Dimer 882.17 H ABG pH POC ABG pO2 ABG pO2 ABG HCO3 ABG Base Excess ABG Hemoglobin ABG Chloride ABG Glucose Potassium Chloride Carbon Dioxide BUN Glucose POC Glucose 169 H Phosphorus Magnesium C-Reactive Protein 2.70 H Total Protein Albumin Arterial Blood Glucose Arterial Blood Ionized Calcium 08/16/20 08/16/20 08/16/20 Unknown Unknown Unknown WBC 16.7 H Hct RDW [place] # (Auto) 1.0 H Seg Neutrophils % 79.9 H Seg Neutrophils # 13.4 H APTT 23.9 L D-Dimer ABG pH POC ABG pO2 ABG pO2 ABG HCO3 ABG Base Excess ABG Hemoglobin ABG Chloride ABG Glucose Potassium Chloride Carbon Dioxide 17 L BUN 33 H Glucose 233 H POC Glucose Phosphorus Magnesium C-Reactive Protein Total Protein Albumin Arterial Blood Glucose Arterial Blood Ionized Calcium 08/17/20 08/17/20 08/17/20 00:06 03:40 05:52 WBC Hct RDW [place] # (Auto) Seg Neutrophils % Seg Neutrophils # APTT D-Dimer ABG pH POC ABG pO2 60.8 L ABG pO2 ABG HCO3 ABG Base Excess ABG Hemoglobin ABG Chloride 115.0 H ABG Glucose 139 H Potassium Chloride Carbon Dioxide BUN Glucose POC Glucose 125 H 139 H Phosphorus Magnesium C-Reactive Protein Total Protein Albumin Arterial Blood Glucose 139 H Arterial Blood Ionized Calcium 5.5 H 08/17/20 12:30 WBC Hct RDW [place] # (Auto) Seg Neutrophils % Seg Neutrophils # APTT D-Dimer ABG pH POC ABG pO2 ABG pO2 ABG HCO3 ABG Base Excess ABG Hemoglobin ABG Chloride ABG Glucose Potassium Chloride Carbon Dioxide BUN Glucose POC Glucose 133 H Phosphorus Magnesium C-Reactive Protein Total Protein Albumin Arterial Blood Glucose Arterial Blood Ionized Calcium Chest x-ray: image reviewed Allied health notes reviewed: RT
--- NOTE | 2020-08-17 17:30 | Consultation ---
History of Present Illness Consult date: 08/17/20 Reason for Consult: change in mental status History of present illness: This is a comprehensive neurological consultation on Mr. Davis Gloria who is a very pleasant 55-year-old gentleman admitted with symptoms of change in mental status. Currently he is been intubated. His current symptoms of unresponsiveness has been labeled as secondary to sepsis since he also has wound in his foot with positive MRSA. He is also on fentanyl. It was reported by the nurse that he has baseline right-sided weakness and now in the intensive care unit with symptoms of hyperglycemia. There was no jerking movement reported by the nursing team. His CT scan of the brain revealed old left frontal lobe stroke. Past History Past Medical History: diabetes, hypertension, hyperlipidemia, other (Peripheral vascular disease) Past Surgical History: Other Social history: no significant social history Family history: no significant family history Medications and Allergies Allergies Allergy/AdvReac Type Severity Reaction Status Date / Time vancomycin AdvReac Rash Verified 08/16/20 10:15 Home Medications Medication Instructions Recorded Confirmed Last Taken Type Gabapentin 300 mg PO Q8HR #90 capsule 03/02/20 08/16/20 Unknown Rx Sodium Hypochlorite [Dakin's Half 1 applic TP BID bottle 03/02/20 08/16/20 Unknown Rx Strength] amLODIPine 10 mg PO QDAY #30 tablet 03/02/20 08/16/20 Unknown Rx Baclofen 10 mg PO BID 07/07/20 08/16/20 Unknown History predniSONE [Deltasone] 20 mg PO BID 07/07/20 08/16/20 Unknown History traZODone [Desyrel] 50 mg PO QHS 07/07/20 08/16/20 Unknown History Aspirin EC [Halfprin EC] 81 mg PO QDAY tablet 07/08/20 08/16/20 Unknown Rx Famotidine [Pepcid] 20 mg PO BID tablet 07/08/20 08/16/20 Unknown Rx Folic Acid [Folvite] 1 mg PO QDAY tablet 07/08/20 08/16/20 Unknown Rx HYDROcodone/APAP 10-325 [[place] 1 each PO Q6HR PRN #12 07/08/20 08/16/20 Unknown Rx 10-325 mg TAB] Thiamine [Vitamin B-1] 100 mg PO QDAY tablet 09/19/20 10/28/20 Unknown Rx metFORMIN [Glucophage] 1,000 mg PO BID 08/16/20 08/16/20 Unknown History Active Meds: Active Medications Enoxaparin Sodium (Enoxaparin) 40 mg SUB-Q QDAY@2200 NADJA; Protocol Last Admin: 08/16/20 21:40 Dose: 40 mg Documented by: Famotidine (Pepcid) 20 mg IV BID [facility] Last Admin: 08/17/20 10:08 Dose: 20 mg Documented by: Fentanyl (Sublimaze) 50 mcg IV Q10MIN PRN PRN Reason: ANALGESIA Hydrophilic Ointment (Vaseline Lip Therapy) 1 applic TP Q2HR PRN PRN Reason: Dry Lips Vancomycin HCl 1,750 mg/ (Sodium Chloride) 535 mls @ 333.333 mls/hr IV Q12HR [facility] Last Admin: 08/17/20 15:33 Dose: 333.333 mls/hr Documented by: Fentanyl Citrate (Fentanyl Drip Premix) 2,000 mcg in 100 mls @ 5 mls/hr IV TITR [facility]; Protocol Last Admin: 08/17/20 15:10 Dose: 4 mcg/kg/hr, 20 mls/hr Documented by: Cefepime HCl (Cefepime/Ns 2 Gm/100 Ml) 2 gm in 100 mls @ 200 mls/hr IV Q8HR NADJA; Protocol Last Admin: 08/17/20 15:10 Dose: 200 mls/hr Documented by: Propofol (Diprivan 10 Mg/Ml) 1,000 mg in 100 mls @ 2.82 mls/hr IV TITR [facility]; Protocol Last Admin: 08/17/20 15:15 Dose: 5 mcg/kg/min, 2.82 mls/hr Documented by: Lorazepam (Ativan) 2 mg IV Q4H PRN PRN Reason: Agitation Last Admin: 08/17/20 15:10 Dose: 2 mg Documented by: Multi-Ingred Cream/Lotion/Oil/Oint (Artificial Tears Ophth Oint) 1 applic OU Q4HR PRN PRN Reason: Dry Eye(s) Review of Systems ROS unobtainable: due to endotracheal tube Physical Examination - Vital Signs Vital Signs: Vital Signs Pulse Resp BP 66 20 114/69 08/15/20 17:00 08/15/20 17:00 08/15/20 17:00 - Physical Exam Narrative exam: Limited examinations Patient is intubated, and sedated and unresponsive. Cranial nerve examination Cranial nerve IIpupils are reacting but sluggish cranial nerves III, IV and VIno nystagmus Does not move either [id number] Face looks symmetrical Other cranial nerves are difficult to examine Motor: Does not move arms or legs to any verbal, Sensory examination Does not withdraw to painful stimuli Babinski: Left great toe amputation, right mute Results - Laboratory Findings CBC and BMP: 08/16/20 Unknown 08/16/20 Unknown Abnormal Lab Findings: Abnormal Labs 08/15/20 08/16/20 08/16/20 21:10 04:30 08:59 WBC Hct RDW [place] # (Auto) Seg Neutrophils % Seg Neutrophils # APTT D-Dimer ABG pH 7.338 L 7.345 L POC ABG pO2 ABG pO2 105.9 H 134.5 H ABG HCO3 19.2 L ABG Base Excess -5.9 L -5.2 L ABG Hemoglobin 12.3 L 12.1 L ABG Chloride ABG Glucose Potassium 3.4 L Chloride 109.0 H Carbon Dioxide BUN 32 H Glucose 186 H POC Glucose Phosphorus Magnesium C-Reactive Protein Total Protein 6.0 L Albumin 3.1 L Arterial Blood Glucose Arterial Blood Ionized Calcium 08/16/20 08/16/20 08/16/20 14:45 14:45 14:45 WBC Hct 35.3 L RDW 15.7 H [place] # (Auto) Seg Neutrophils % Seg Neutrophils # APTT D-Dimer 925.88 H ABG pH POC ABG pO2 ABG pO2 ABG HCO3 ABG Base Excess ABG Hemoglobin ABG Chloride ABG Glucose Potassium Chloride Carbon Dioxide BUN Glucose POC Glucose Phosphorus 1.50 L Magnesium 1.60 L C-Reactive Protein Total Protein Albumin Arterial Blood Glucose Arterial Blood Ionized Calcium 08/16/20 08/16/20 08/16/20 14:45 14:45 17:42 WBC Hct RDW [place] # (Auto) Seg Neutrophils % Seg Neutrophils # APTT D-Dimer 882.17 H ABG pH POC ABG pO2 ABG pO2 ABG HCO3 ABG Base Excess ABG Hemoglobin ABG Chloride ABG Glucose Potassium Chloride Carbon Dioxide BUN Glucose POC Glucose 169 H Phosphorus Magnesium C-Reactive Protein 2.70 H Total Protein Albumin Arterial Blood Glucose Arterial Blood Ionized Calcium 08/16/20 08/16/20 08/16/20 Unknown Unknown Unknown WBC 16.7 H Hct RDW [place] # (Auto) 1.0 H Seg Neutrophils % 79.9 H Seg Neutrophils # 13.4 H APTT 23.9 L D-Dimer ABG pH POC ABG pO2 ABG pO2 ABG HCO3 ABG Base Excess ABG Hemoglobin ABG Chloride ABG Glucose Potassium Chloride Carbon Dioxide 17 L BUN 33 H Glucose 233 H POC Glucose Phosphorus Magnesium C-Reactive Protein Total Protein Albumin Arterial Blood Glucose Arterial Blood Ionized Calcium 08/17/20 08/17/20 08/17/20 00:06 03:40 05:52 WBC Hct RDW [place] # (Auto) Seg Neutrophils % Seg Neutrophils # APTT D-Dimer ABG pH POC ABG pO2 60.8 L ABG pO2 ABG HCO3 ABG Base Excess ABG Hemoglobin ABG Chloride 115.0 H ABG Glucose 139 H Potassium Chloride Carbon Dioxide BUN Glucose POC Glucose 125 H 139 H Phosphorus Magnesium C-Reactive Protein Total Protein Albumin Arterial Blood Glucose 139 H Arterial Blood Ionized Calcium 5.5 H 08/17/20 12:30 WBC Hct RDW [place] # (Auto) Seg Neutrophils % Seg Neutrophils # APTT D-Dimer ABG pH POC ABG pO2 ABG pO2 ABG HCO3 ABG Base Excess ABG Hemoglobin ABG Chloride ABG Glucose Potassium Chloride Carbon Dioxide BUN Glucose POC Glucose 133 H Phosphorus Magnesium C-Reactive Protein Total Protein Albumin Arterial Blood Glucose Arterial Blood Ionized Calcium - Diagnostic Findings Additional findings: CT scan of the brain revealed old left frontal lobe stroke as per the report Assessment and Plan - Patient Problems (1) 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 2) if there is no contraindication, may give a baby aspirin through nasogastric tube or through rectal suppository. (2) Encephalopathy Current Visit: No Status: Acute Plan to address problem: Plan: 1) Please order an EEG to look for no subclinical seizures since patient has old left frontal lobe stroke that can potentially cause subclinical seizures. 2) seizure precautions 3) DVT prophylaxis I discussed at length with the treating nurse regarding his condition and possible treatment options. Thank you very much for allowing us in the care of your patient. Please call us if you have any questions. Jamie Cabrera MD Tele-neurologist [phone]
--- NOTE | 2020-08-17 17:35 | XRay Report ---
ABDOMEN 1 VIEW INDICATION / CLINICAL INFORMATION: Tube placement. COMPARISON: None available. FINDINGS: TUBES / LINES: Esophagogastric tube is looped within the upper thorax. The left sided central venous catheter remains in stable position. BOWEL GAS PATTERN: No significant abnormality. FREE AIR / EXTRALUMINAL GAS: None seen. ADDITIONAL FINDINGS: No significant additional findings. IMPRESSION: 1. Esophagogastric tube is looped within the upper thorax. Recommend withdrawal and replacement. Signer Name: Hunter Diaz MD Signed: 08/17/2020 5:30 PM Workstation Name: [employer]
--- NOTE | 2020-08-17 17:42 | Progress Note ---
Assessment and Plan Toxic metabolic encephalopathy. Etiology is unknown. 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 Patient started on vancomycin, Rocephin and acyclovir. LP completed by the emergency room physician and await studies. ID and neurology consultations. Sepsis. Etiology is unknown. Continue IV antibiotics ID consult appreciated Acute hypoxic respiratory failure. Patient will be continued on mechanical ventilation. Pulmonary consulted. Patient currently on sedation with fentanyl drip. Hypertension. Resume antihypertensive medications Diabetes mellitus type 2. Continue Accu-Cheks and sliding scale insulin Hyperlipidemia. Statins. Diabetic foot ulcer. Wound care consultation. 08/16/2020. Wean sedation of fentanyl as tolerated. Patient currently on AC mode ventilation with rate of 20, tidal volume 450, FiO2 40% and PEEP of 6. Pulmonology following. ID and neurology consultations. 08/17/2020 Patient intubated, weaning in progress. The high probability of a clinically significant, sudden or life threatening deterioration of the [respiratory, neurologic and immunologic] system(s) required my full and direct attention, intervention and personal management. The aggregate critical care time was [38] minutes. This time is in addition to time spent performing reported procedures but includes the following: [x] Data Review and interpretation [x] Patient assessment and monitoring of vital signs [x] Documentation [x] Medication orders and management Subjective Date of service: 08/17/20 Principal diagnosis: Sepsis Interval history: This is a 55-year-old male with past medical history of tobacco abuse, hypertension, hyperlipidemia diabetes mellitus type 2 and peripheral vascular disease who [place] and noted to have lethargy and hyporesponsiveness. Patient was transferred to our facility and intubated by the ER physician due to airway compromise/airway protection. The patient was noted to have an ABG of pH 7.33/PCO2 36/PO2 105 on room air. The patient had most recent hospitalization June 2020 and treated for chest pain attributed to costochondritis and chronic diastolic heart failure. Also, patient has had multiple peripheral artery procedures most recently 4 months ago and treatment for left diabetic foot ulceration/infection. Patient previously had an x-ray negative for osteomyelitis but did have gas. The patient had a PICC line placed in February and was to receive 3 weeks of vancomycin IV. Patient now presents with as noted above altered mentation and acute hypoxic respiratory failure. No other history is obtained as the patient is intubated on mechanical ventilation. Objective - Exam Narrative Exam: Patient intubated - Constitutional Vitals: Vital Signs - 12hr 08/17/20 08/17/20 08/17/20 05:30 06:00 06:30 Temperature Pulse Rate 88 87 88 Pulse Rate [ From Monitor] Respiratory 20 20 20 Rate Blood Pressure 116/73 118/73 117/76 O2 Sat by Pulse 96 94 95 Oximetry 08/17/20 08/17/20 08/17/20 07:00 07:15 07:30 Temperature Pulse Rate 84 98 H 85 Pulse Rate [ From Monitor] Respiratory 20 20 Rate Blood Pressure 123/75 130/80 O2 Sat by Pulse 96 95 98 Oximetry 08/17/20 08/17/20 08/17/20 08:00 08:30 09:00 Temperature 99 F Pulse Rate 87 84 83 Pulse Rate [ 87 From Monitor] Respiratory 20 20 20 Rate Blood Pressure 128/78 112/73 119/71 O2 Sat by Pulse 98 98 99 Oximetry 08/17/20 08/17/20 08/17/20 09:30 10:00 10:30 Temperature Pulse Rate 109 H 123 H 94 H Pulse Rate [ From Monitor] Respiratory 19 16 20 Rate Blood Pressure 138/83 138/83 95/59 O2 Sat by Pulse 93 97 93 Oximetry 08/17/20 08/17/20 08/17/20 11:00 11:30 12:00 Temperature 99.6 F Pulse Rate 117 H 107 H 89 Pulse Rate [ 89 From Monitor] Respiratory 21 17 20 Rate Blood Pressure 163/95 111/67 113/69 O2 Sat by Pulse 93 98 97 Oximetry 08/17/20 08/17/20 08/17/20 12:30 13:00 13:30 Temperature Pulse Rate 84 92 H 86 Pulse Rate [ From Monitor] Respiratory 20 20 20 Rate Blood Pressure 116/67 127/76 113/69 O2 Sat by Pulse 99 96 93 Oximetry 08/17/20 08/17/20 08/17/20 14:00 14:30 14:41 Temperature Pulse Rate 85 122 H 102 H Pulse Rate [ From Monitor] Respiratory 20 13 Rate Blood Pressure 120/70 120/70 O2 Sat by Pulse 93 94 95 Oximetry 08/17/20 08/17/20 08/17/20 15:00 15:30 16:00 Temperature 98.3 F Pulse Rate 134 H 93 H 87 Pulse Rate [ 81 From Monitor] Respiratory 18 19 19 Rate Blood Pressure 229/125 229/125 92/52 O2 Sat by Pulse 97 92 91 Oximetry General appearance: Present: mild distress, well-nourished - EENT Eyes: PERRL, EOM intact ENT: hearing intact, clear oral mucosa Ears: bilateral: normal - Neck Neck: supple, normal ROM - Respiratory Respiratory effort: normal Respiratory: bilateral: CTA - Breasts Breasts: normal - Cardiovascular Heart rate: 78 Rhythm: regular Heart Sounds: Present: S1 & S2. Absent: gallop, rub Extremities: pulses intact, No edema, normal color, Full ROM Extremity abnormal: other (Foot ulcer) - Gastrointestinal General gastrointestinal: Present: soft, non-tender, non-distended, normal bowel sounds - Genitourinary Male genitourinary: normal - Integumentary Integumentary: clear, warm, dry - Musculoskeletal Musculoskeletal: generalized weakness - Neurologic Neurologic: moves all extremities - Psychiatric Psychiatric: other (Patient intubated and lethargic) - Allied health notes Allied health notes reviewed: nursing, case management - Labs CBC & Chem 7: 08/21/20 04:05 08/21/20 04:05 Labs: Abnormal lab results 08/16/20 08/17/20 08/17/20 Range/Units 17:42 00:06 03:40 POC ABG pO2 60.8 L (83-108) mmHg ABG Chloride 115.0 H (98-107) mmol/L ABG Glucose 139 H (65-95) mg/dL POC Glucose 169 H 125 H (70-105) mg/dL Arterial Blood Glucose 139 H (65-95) mg/dL Arterial Blood Ionized Calcium 5.5 H (4.6-5.3) mg/dL 08/17/20 08/17/20 Range/Units 05:52 12:30 POC ABG pO2 (83-108) mmHg ABG Chloride (98-107) mmol/L ABG Glucose (65-95) mg/dL POC Glucose 139 H 133 H (70-105) mg/dL Arterial Blood Glucose (65-95) mg/dL Arterial Blood Ionized Calcium (4.6-5.3) mg/dL
--- NOTE | 2020-08-17 20:54 | XRay Report ---
ABDOMEN 1 VIEW 08/17/2020 8:03 PM INDICATION / CLINICAL INFORMATION: Placement of NGT. COMPARISON: 5:21 PM FINDINGS: TUBES / LINES: Esophagogastric tube has been placed with the tip in the mid stomach. BOWEL GAS PATTERN: No significant abnormality. FREE AIR / EXTRALUMINAL GAS: None. ADDITIONAL FINDINGS: No significant additional findings. IMPRESSION: 1. Esophagogastric tube in expected position. Signer Name: Leticia Belle MD Signed: 08/17/2020 8:49 PM Workstation Name: [employer]
[2020-08-17] MEDS: ENOXAPARIN 40 MG/0.4 ML INJ SUB-Q SCH (22:29)
[2020-08-18] MEDS: fentaNYL DRIP Premix 2,000 MCG/100 ML BAG IV SCH ×5 (00:23→21:33)
--- NOTE | 2020-08-18 03:25 | XRay Report ---
CHEST 1 VIEW 2:56 AM INDICATION / CLINICAL INFORMATION: Follow-up respiratory failure. COMPARISON: Yesterday. FINDINGS: SUPPORT DEVICES: There is an endotracheal tube with the tip 6 cm above the felisha. A nasogastric tube is coursing into the stomach with tip not seen. The position of the left jugular CVL has not changed . HEART / MEDIASTINUM: Unchanged. LUNGS / PLEURA: Mild patchy parenchymal disease in both lung bases has not changed significantly. No pneumothorax. ADDITIONAL FINDINGS: No significant additional findings. IMPRESSION: No significant change in mild bibasilar parenchymal disease. Signer Name: Mckinley Majano MD Signed: 08/18/2020 3:20 AM Workstation Name: [id number]
[2020-08-18 04:36] LABS: ABG Base Excess -4.3 mmol/L (-2.0-3.0); ABG HCO3 21.7 mmol/L (20.0-26.0); ABG Methemoglobin 0.5 % (0.0-1.5); ABG Oxygen Saturation 95.4 % (95.0-99.0); ABG PCO2 43.6 mm Hg; ABG PH 7.315 pH Units (7.350-7.450); ABG PO2 75.1 mm Hg (80.0-90.0)
[2020-08-18] MEDS: CEFEPIME/NS 2 GM/100 ML 2 GM/100 ML BAG IV SCH ×3 (05:26→23:18)
[2020-08-18 07:48] LABS: Glucose,CSF 183 mg/dL
[2020-08-18] MEDS: FAMOTIDINE 20 MG/2 ML INJ IV SCH ×2 (09:32→23:18)
[2020-08-18] MEDS: VANCOMYCIN 1,750 MG in SODIUM CHLORIDE 0.9% 500 ML 500 ML IV SCH ×2 (09:32→23:18)
[2020-08-18 10:04] LABS: Free T4 (Free Thyroxine) 0.91 ng/dL (0.76-1.46)
[2020-08-18 10:07] LABS: BUN/Creatinine Ratio 28; Blood Urea Nitrogen 45 mg/dL (9-20)
[2020-08-18 10:08] LABS: Alanine Aminotransferase 18 units/L (7-56); Albumin 3.7 g/dL (3.9-5); Calcium 10.4 mg/dL (8.4-10.2); Creatine Kinase MB 8.8 ng/mL (0.0-4.0)
[2020-08-18 10:16] LABS: Amphetamine Screen,Urine PRESUMPTIVE NEGATIVE; Benzodiazepines Screen,Urine PRESUMPTIVE NEGATIVE; Cannabinoid Screen,Urine PRESUMPTIVE NEGATIVE; Cocaine Screen,Urine PRESUMPTIVE NEGATIVE; Methadone Screen,Urine PRESUMPTIVE NEGATIVE; Opiate Screen,Urine PRESUMPTIVE NEGATIVE
--- NOTE | 2020-08-18 13:16 | Progress Note ---
Assessment and Plan Acute hypoxemic respiratory failure on MVS Acute encephalopathy, presumably toxic metabolic. Severe sepsis with shock. History of diabetes. History of a cerebrovascular accident with persistent left hemiparesis. History of alcohol abuse. Hypertension. Chronic pain syndrome. History of deep venous thrombosis. - continue to wean supplemental oxygen for target O2 sat's > 92% acutely - VAP bundle addressed - continue lung protective strategies - continue bronchodilators with pulmonary hygiene per RT - wean per pulmonary driven protocols otherwise - Daily SAT and SBT assessment as tolerated - accuchecks with glycemic control per SSI (While critically ill target blood glucose of 140-180 mg/dL; avoid hypoglycemia) - sedation prn for target RASS 0 to -1 - avoid nephrotoxins, renally dose all medications - completed AB's per ID rec's - prn analgesia per CPOT score - Maintenance of sleep-wake cycle, avoid delirium - continue enteral nutritional support at goal rate as tolerated - G.I. & VTE prophylaxis - PT/OT/ROM exercises - continue mobility protocols for pressure ulcer prophylaxis - Monitor hemodynamics closely - continue other care per attending / other consultants - discharge planning ongoing concurrently .... Re-evaluate in am & prn CONDITION: CRITICAL PROGNOSIS: GUARDED CODE STATUS: FULL CODE The high probability of a clinically significant, sudden or life-threatening deterioration of the [respiratory, cardiovascular & neurologic] system(s) required my full and direct attention, intervention and personal management. The aggregate critical care time was [33] minutes without overlap. Time includes spent on; [x] Data Review and interpretation [x] Patient assessment and monitoring of vital signs [x] Documentation [x] Medication orders and management Subjective Date of service: 08/18/20 Principal diagnosis: Ac hypoxemic resp failure; Ac encephalopathy (toxic metabolic); Sev. Sepsis Interval history: Patient is seen today for: Acute hypoxemic respiratory failure; Acute encephalopathy (toxic metabolic); Severe sepsis with shock; DM II; CVA; alcohol abuse; HTN; DVT Seen and examined at bedside; 24hour events reviewed; nursing and respiratory care staff consulted; no adverse overnight events reported to me; resting in bed; AMS is persistent; remaions on CIWA protocol; remains on MVS; no emesis or overt aspiration Objective Vital Signs - 12hr 08/18/20 08/18/20 08/18/20 01:30 02:00 02:30 Temperature Pulse Rate 99 H 115 H 104 H Pulse Rate [ From Monitor] Pulse Rate [ Right Radial] Respiratory 20 11 L 19 Rate Blood Pressure 122/77 167/97 120/76 O2 Sat by Pulse 97 95 97 Oximetry 08/18/20 08/18/20 08/18/20 03:00 03:30 03:38 Temperature 99.4 F Pulse Rate 127 H 97 H Pulse Rate [ From Monitor] Pulse Rate [ Right Radial] Respiratory 12 20 Rate Blood Pressure 167/89 99/62 O2 Sat by Pulse 95 96 Oximetry 08/18/20 08/18/20 08/18/20 04:00 04:07 04:30 Temperature Pulse Rate 100 H 115 H 106 H Pulse Rate [ 116 H From Monitor] Pulse Rate [ Right Radial] Respiratory 20 21 Rate Blood Pressure 122/76 122/76 127/78 O2 Sat by Pulse 97 97 96 Oximetry 08/18/20 08/18/20 08/18/20 05:00 05:30 06:00 Temperature Pulse Rate 105 H 125 H 131 H Pulse Rate [ From Monitor] Pulse Rate [ Right Radial] Respiratory 20 14 11 L Rate Blood Pressure 136/84 178/94 180/97 O2 Sat by Pulse 97 94 93 Oximetry 08/18/20 08/18/20 08/18/20 06:10 06:30 07:00 Temperature Pulse Rate 121 H 129 H Pulse Rate [ From Monitor] Pulse Rate [ 102 H Right Radial] Respiratory 20 12 10 L Rate Blood Pressure 138/79 174/103 174/103 O2 Sat by Pulse 97 95 95 Oximetry 08/18/20 08/18/20 08/18/20 07:30 08:00 08:23 Temperature 99.1 F Pulse Rate 103 H 97 H 98 H Pulse Rate [ 103 H From Monitor] Pulse Rate [ Right Radial] Respiratory 20 20 Rate Blood Pressure 101/57 99/57 186/96 O2 Sat by Pulse 94 97 97 Oximetry 08/18/20 08/18/20 08/18/20 08:30 09:00 09:30 Temperature Pulse Rate 109 H 82 109 H Pulse Rate [ From Monitor] Pulse Rate [ Right Radial] Respiratory 20 20 16 Rate Blood Pressure 165/86 84/49 136/89 O2 Sat by Pulse 100 99 100 Oximetry 08/18/20 08/18/20 08/18/20 10:00 10:30 11:00 Temperature Pulse Rate 116 H 104 H 99 H Pulse Rate [ From Monitor] Pulse Rate [ Right Radial] Respiratory 13 18 20 Rate Blood Pressure 141/88 138/81 112/72 O2 Sat by Pulse 96 98 96 Oximetry 08/18/20 08/18/20 08/18/20 11:30 11:55 12:00 Temperature 98.7 F Pulse Rate 99 H 111 H 104 H Pulse Rate [ 97 H From Monitor] Pulse Rate [ Right Radial] Respiratory 20 20 Rate Blood Pressure 123/68 106/64 159/87 O2 Sat by Pulse 100 95 100 Oximetry Constitutional: no acute distress, other (middle aged male with mildly increased respiratory effort at rest on MVS) Eyes: non-icteric ENT: oropharynx moist, other (ETT 23 cm AMER[place]) Effort: mildly labored Ascultation: Bilateral: rhonchi Percussion: Bilateral: not dull Cardiovascular: regular rate and rhythm Gastrointestinal: normoactive bowel sounds, soft, non-tender, non-distended (protuberant) Integumentary: normal Extremities: no cyanosis, no edema, pink and warm, pulses normal, no ischemia or petechiae Neurologic: non-focal exam (grossly), pupils equal and round, unable to assess Psychiatric: other (unable to assess re: AMS) CBC and BMP: 08/21/20 04:05 08/21/20 04:05 ABG, PT/INR, D-dimer: ABG ABG pH 7.315 pH Units (7.350-7.450) L 08/18/20 04:00 POC ABG pCO2 41.8 mmHg (32.0-48.0) 08/17/20 03:40 ABG pCO2 43.6 mm Hg 08/18/20 04:00 POC ABG pO2 60.8 mmHg (83-108) L 08/17/20 03:40 ABG pO2 75.1 mm Hg (80.0-90.0) L 08/18/20 04:00 POC ABG HCO3 21.2 08/17/20 03:40 ABG O2 Saturation 95.4 % (95.0-99.0) 08/18/20 04:00 PT/INR, D-dimer PT 13.9 Sec. (12.2-14.9) 08/16/20 Unknown INR 1.06 (0.87-1.13) 08/16/20 Unknown D-Dimer 882.17 ng/mlDDU (0-234) H 08/16/20 14:45 D-Dimer 925.88 ng/mlDDU (0-234) H 08/16/20 14:45 Abnormal lab findings: Abnormal Labs 08/15/20 08/15/20 08/15/20 06:00 07:32 07:32 WBC Hct RDW [place] # (Auto) Seg Neutrophils % Seg Neutrophils # APTT D-Dimer ABG pH POC ABG pO2 ABG pO2 ABG HCO3 ABG Base Excess ABG Hemoglobin ABG Chloride ABG Glucose Oxyhemoglobin Sodium 132 L Potassium Chloride 94.3 L Carbon Dioxide 19 L BUN 45 H Creatinine 1.6 H Glucose 285 H POC Glucose Calcium 10.4 H Phosphorus Magnesium Total Creatine Kinase 446 H CK-MB (CK-2) 8.8 H C-Reactive Protein Total Protein Albumin 3.7 L Arterial Blood Glucose Arterial Blood Ionized Calcium Salicylates < 0.3 L Acetaminophen < 5.0 L 08/15/20 08/15/20 08/16/20 10:45 21:10 04:30 WBC Hct RDW [place] # (Auto) Seg Neutrophils % Seg Neutrophils # APTT D-Dimer ABG pH 7.338 L 7.345 L POC ABG pO2 ABG pO2 105.9 H 134.5 H ABG HCO3 19.2 L ABG Base Excess -5.9 L -5.2 L ABG Hemoglobin 12.3 L 12.1 L ABG Chloride ABG Glucose Oxyhemoglobin Sodium Potassium Chloride Carbon Dioxide BUN Creatinine Glucose 297 H POC Glucose Calcium Phosphorus Magnesium Total Creatine Kinase CK-MB (CK-2) C-Reactive Protein Total Protein Albumin Arterial Blood Glucose Arterial Blood Ionized Calcium Salicylates Acetaminophen 08/16/20 08/16/20 08/16/20 08:59 14:45 14:45 WBC Hct 35.3 L RDW 15.7 H [place] # (Auto) Seg Neutrophils % Seg Neutrophils # APTT D-Dimer ABG pH POC ABG pO2 ABG pO2 ABG HCO3 ABG Base Excess ABG Hemoglobin ABG Chloride ABG Glucose Oxyhemoglobin Sodium Potassium 3.4 L Chloride 109.0 H Carbon Dioxide BUN 32 H Creatinine Glucose 186 H POC Glucose Calcium Phosphorus 1.50 L Magnesium 1.60 L Total Creatine Kinase CK-MB (CK-2) C-Reactive Protein Total Protein 6.0 L Albumin 3.1 L Arterial Blood Glucose Arterial Blood Ionized Calcium Salicylates Acetaminophen 08/16/20 08/16/20 08/16/20 14:45 14:45 14:45 WBC Hct RDW [place] # (Auto) Seg Neutrophils % Seg Neutrophils # APTT D-Dimer 925.88 H 882.17 H ABG pH POC ABG pO2 ABG pO2 ABG HCO3 ABG Base Excess ABG Hemoglobin ABG Chloride ABG Glucose Oxyhemoglobin Sodium Potassium Chloride Carbon Dioxide BUN Creatinine Glucose POC Glucose Calcium Phosphorus Magnesium Total Creatine Kinase CK-MB (CK-2) C-Reactive Protein 2.70 H Total Protein Albumin Arterial Blood Glucose Arterial Blood Ionized Calcium Salicylates Acetaminophen 08/16/20 08/16/20 08/16/20 17:42 Unknown Unknown WBC 16.7 H Hct RDW [place] # (Auto) 1.0 H Seg Neutrophils % 79.9 H Seg Neutrophils # 13.4 H APTT 23.9 L D-Dimer ABG pH POC ABG pO2 ABG pO2 ABG HCO3 ABG Base Excess ABG Hemoglobin ABG Chloride ABG Glucose Oxyhemoglobin Sodium Potassium Chloride Carbon Dioxide BUN Creatinine Glucose POC Glucose 169 H Calcium Phosphorus Magnesium Total Creatine Kinase CK-MB (CK-2) C-Reactive Protein Total Protein Albumin Arterial Blood Glucose Arterial Blood Ionized Calcium Salicylates Acetaminophen 08/16/20 08/17/20 08/17/20 Unknown 00:06 03:40 WBC Hct RDW [place] # (Auto) Seg Neutrophils % Seg Neutrophils # APTT D-Dimer ABG pH POC ABG pO2 60.8 L ABG pO2 ABG HCO3 ABG Base Excess ABG Hemoglobin ABG Chloride 115.0 H ABG Glucose 139 H Oxyhemoglobin Sodium Potassium Chloride Carbon Dioxide 17 L BUN 33 H Creatinine Glucose 233 H POC Glucose 125 H Calcium Phosphorus Magnesium Total Creatine Kinase CK-MB (CK-2) C-Reactive Protein Total Protein Albumin Arterial Blood Glucose 139 H Arterial Blood Ionized Calcium 5.5 H Salicylates Acetaminophen 08/17/20 08/17/20 08/17/20 05:52 12:30 17:47 WBC Hct RDW [place] # (Auto) Seg Neutrophils % Seg Neutrophils # APTT D-Dimer ABG pH POC ABG pO2 ABG pO2 ABG HCO3 ABG Base Excess ABG Hemoglobin ABG Chloride ABG Glucose Oxyhemoglobin Sodium Potassium Chloride Carbon Dioxide BUN Creatinine Glucose POC Glucose 139 H 133 H 157 H Calcium Phosphorus Magnesium Total Creatine Kinase CK-MB (CK-2) C-Reactive Protein Total Protein Albumin Arterial Blood Glucose Arterial Blood Ionized Calcium Salicylates Acetaminophen 08/18/20 08/18/20 08/18/20 00:08 04:00 05:31 WBC Hct RDW [place] # (Auto) Seg Neutrophils % Seg Neutrophils # APTT D-Dimer ABG pH 7.315 L POC ABG pO2 ABG pO2 75.1 L ABG HCO3 ABG Base Excess -4.3 L ABG Hemoglobin 11.9 L ABG Chloride ABG Glucose Oxyhemoglobin 93.7 L Sodium Potassium Chloride Carbon Dioxide BUN Creatinine Glucose POC Glucose 129 H 114 H Calcium Phosphorus Magnesium Total Creatine Kinase CK-MB (CK-2) C-Reactive Protein Total Protein Albumin Arterial Blood Glucose Arterial Blood Ionized Calcium Salicylates Acetaminophen 08/18/20 12:26 WBC Hct RDW [place] # (Auto) Seg Neutrophils % Seg Neutrophils # APTT D-Dimer ABG pH POC ABG pO2 ABG pO2 ABG HCO3 ABG Base Excess ABG Hemoglobin ABG Chloride ABG Glucose Oxyhemoglobin Sodium Potassium Chloride Carbon Dioxide BUN Creatinine Glucose POC Glucose 112 H Calcium Phosphorus Magnesium Total Creatine Kinase CK-MB (CK-2) C-Reactive Protein Total Protein Albumin Arterial Blood Glucose Arterial Blood Ionized Calcium Salicylates Acetaminophen Chest x-ray: image reviewed (ETT in good position; basilar predominant mild infiltrates) Allied health notes reviewed: nursing
--- NOTE | 2020-08-18 13:38 | Progress Note ---
Assessment and Plan Cultures: 08/15/2020 blood cultures no growth today 08/15/2020 CSF culture no growth today 11/15/2019 urine culture no growth Assessment: 55 years old male with history of diabetes mellitus, hypertension, peripheral vascular disease, alcohol abuse, tobacco abuse, left foot diabetic ulceration with an abscess secondary to MRSA in February 2020, admitted on 08/16/2020 due to altered mental status lethargy unresponsive: #Severe sepsis with septic shock: Off pressors, with leukocytosis. Source unclear, possible right elbow infection? vs pneumonia. Chest x-ray possible right lower lobe infiltrate. Urinalysis negative. SARS-CoV-2 PCR negative. Patient underwent lumbar puncture in the emergency room, ED provider kindly contacted me with results -WBCs 10, RBCs 381. This is not consistent with meningitis. Procalcitonin normal. #Possible pneumonia: Repeat CXR mild infiltrates #Acute hypoxemic respiratory failure: Patient intubated #Right elbow ulcer: Likely infected ? exposed joint. Elbow x-ray reading pending. #Acute encephalopathy: Likely secondary to sepsis versus metabolic. ?drugs. CT head shows old infarct. CSF with no pleocytosis but high protein. #Peripheral vascular disease: Very cold feet bilaterally. Arterial Doppler without any evidence of PAD?. Previous arterial Doppler abnormal. #Multiple skin tears in lower extremities: Likely secondary to peripheral vascular disease Recommendations: -Orthopedics evaluation of the right elbow deep wound ? Exposed joint ? r/o septic joint ?elbow MRI -Agree with brain MRI/neurology evaluation -Continue vancomycin with PK consult - day 2 of 7 to cover pneumonia and possible elbow wound infection -Continue cefepime IV 2 g every 8 hours - day 2 of 7 to cover pneumonia and possible elbow wound infection -If there is evidence of elbow septic join then IV abx should be extended -Obtain wound care consultation -Obtain urine drug screen Will follow. Pastora Gongora MD Infectious Diseases [employer] [facility] M [phone] O [phone] Subjective Date of service: 08/18/20 Principal diagnosis: Ac hypoxemic resp failure; Ac encephalopathy (toxic metabolic); Sev. Sepsis Interval history: Patient remains intubated, FiO2 60, PEEP 6, no need for pressors overnight, no fever. Objective - Exam Narrative Exam: General appearance: Sedated in no acute distress intubated Eyes: anicteric sclerae, moist conjunctivae; no lid-lag; PERRLA HENT: Atraumatic; oropharynx clear limited endotracheal tube in place Lungs: abbi loud rhonchi CV: RRR no murmur Abdomen: Soft, non-tender; no masses or hepatosplenomegaly Extremities: Left foot partial amputation healed. Right elbow with an open wound, deep, draining serous fluid Skin: Multiple lower extremity skin tear. Psych: Sedated Neuro: Sedated - - Constitutional Vitals: Vital Signs Temp Pulse Resp BP Pulse Ox 98.7 F 92 H 20 120/71 100 08/18/20 12:00 08/18/20 13:00 08/18/20 13:00 08/18/20 13:00 08/18/20 12:30 Temperature -Last 24 Hours Temperature 98.7 F Temperature 99.1 F Temperature 99.4 F Temperature 98.4 F Temperature 98.8 F Temperature 98.3 F - Labs CBC & Chem 7: 08/16/20 Unknown 08/16/20 Unknown Labs: Abnormal lab results 08/15/20 08/15/20 08/15/20 Range/Units 06:00 07:32 07:32 ABG pH (7.350-7.450) pH Units ABG pO2 (80.0-90.0) mm Hg ABG Base Excess (-2.0-3.0) mmol/L ABG Hemoglobin (14.0-18.0) gm/dl Oxyhemoglobin (95.0-99.0) % Sodium 132 L (137-145) mmol/L Potassium (3.6-5.0) mmol/L Chloride 94.3 L (98-107) mmol/L Carbon Dioxide 19 L (22-30) mmol/L BUN 45 H (9-20) mg/dL Creatinine 1.6 H (0.8-1.3) mg/dL Glucose 285 H (75-100) mg/dL POC Glucose (70-105) mg/dL Calcium 10.4 H (8.4-10.2) mg/dL Total Creatine Kinase 446 H (55-170) units/L CK-MB (CK-2) 8.8 H (0.0-4.0) ng/mL Total Protein (6.3-8.2) g/dL Albumin 3.7 L (3.9-5) g/dL Salicylates < 0.3 L (2.8-20.0) mg/dL Acetaminophen < 5.0 L (10.0-30.0) ug/mL 08/15/20 08/16/20 08/16/20 Range/Units 10:45 08:59 Unknown ABG pH (7.350-7.450) pH Units ABG pO2 (80.0-90.0) mm Hg ABG Base Excess (-2.0-3.0) mmol/L ABG Hemoglobin (14.0-18.0) gm/dl Oxyhemoglobin (95.0-99.0) % Sodium (137-145) mmol/L Potassium 3.4 L (3.6-5.0) mmol/L Chloride 109.0 H (98-107) mmol/L Carbon Dioxide 17 L (22-30) mmol/L BUN 32 H 33 H (9-20) mg/dL Creatinine (0.8-1.3) mg/dL Glucose 297 H 186 H 233 H (75-100) mg/dL POC Glucose (70-105) mg/dL Calcium (8.4-10.2) mg/dL Total Creatine Kinase (55-170) units/L CK-MB (CK-2) (0.0-4.0) ng/mL Total Protein 6.0 L (6.3-8.2) g/dL Albumin 3.1 L (3.9-5) g/dL Salicylates (2.8-20.0) mg/dL Acetaminophen (10.0-30.0) ug/mL 08/17/20 08/17/20 08/18/20 Range/Units 12:30 17:47 00:08 ABG pH (7.350-7.450) pH Units ABG pO2 (80.0-90.0) mm Hg ABG Base Excess (-2.0-3.0) mmol/L ABG Hemoglobin (14.0-18.0) gm/dl Oxyhemoglobin (95.0-99.0) % Sodium (137-145) mmol/L Potassium (3.6-5.0) mmol/L Chloride (98-107) mmol/L Carbon Dioxide (22-30) mmol/L BUN (9-20) mg/dL Creatinine (0.8-1.3) mg/dL Glucose (75-100) mg/dL POC Glucose 133 H 157 H 129 H (70-105) mg/dL Calcium (8.4-10.2) mg/dL Total Creatine Kinase (55-170) units/L CK-MB (CK-2) (0.0-4.0) ng/mL Total Protein (6.3-8.2) g/dL Albumin (3.9-5) g/dL Salicylates (2.8-20.0) mg/dL Acetaminophen (10.0-30.0) ug/mL 08/18/20 08/18/20 08/18/20 Range/Units 04:00 05:31 12:26 ABG pH 7.315 L (7.350-7.450) pH Units ABG pO2 75.1 L (80.0-90.0) mm Hg ABG Base Excess -4.3 L (-2.0-3.0) mmol/L ABG Hemoglobin 11.9 L (14.0-18.0) gm/dl Oxyhemoglobin 93.7 L (95.0-99.0) % Sodium (137-145) mmol/L Potassium (3.6-5.0) mmol/L Chloride (98-107) mmol/L Carbon Dioxide (22-30) mmol/L BUN (9-20) mg/dL Creatinine (0.8-1.3) mg/dL Glucose (75-100) mg/dL POC Glucose 114 H 112 H (70-105) mg/dL Calcium (8.4-10.2) mg/dL Total Creatine Kinase (55-170) units/L CK-MB (CK-2) (0.0-4.0) ng/mL Total Protein (6.3-8.2) g/dL Albumin (3.9-5) g/dL Salicylates (2.8-20.0) mg/dL Acetaminophen (10.0-30.0) ug/mL
[2020-08-18] MEDS: LORazepam 2 MG/ML VIAL IV PRN (14:58)
[2020-08-18] MEDS ORDERED: SODIUM BICARBONATE 325 MG TAB FEEDTUBE PRN (15:18)
[2020-08-18] MEDS ORDERED: LIPASE 10,500/PROTEASE 25,000/AMYLASE 43,750 (UNITS) DR CAP FEEDTUBE PRN (15:18)
[2020-08-18] MEDS ORDERED: SIMPLE SYRUP 15 ML FEEDTUBE PRN ×2 (15:18)
[2020-08-18 16:02] LABS: Amphetamine Screen,Urine Negative; Benzodiazepines Screen,Urine Negative; Cannabinoid Screen,Urine Negative; Cocaine Screen,Urine Negative; Methadone Screen,Urine Negative; Opiate Screen,Urine Negative
--- NOTE | 2020-08-19 03:21 | XRay Report ---
CHEST 1 VIEW INDICATION / CLINICAL INFORMATION: follow up respiratory failure. FINDINGS: SUPPORT DEVICES: No significant change in position. HEART / MEDIASTINUM: The cardiomediastinal silhouette has not significantly changed in the interim. LUNGS / PLEURA: Severe bilateral airspace disease has worsened especially within the left lower lung when compared to yesterday's exam. Signer Name: Carlos Barbosa MD Signed: 08/19/2020 3:16 AM Workstation Name: [id number]
[2020-08-19] MEDS: fentaNYL DRIP Premix 2,000 MCG/100 ML BAG IV SCH ×3 (03:55→17:40)
[2020-08-19] MEDS: CEFEPIME/NS 2 GM/100 ML 2 GM/100 ML BAG IV SCH ×3 (07:22→23:28)
--- NOTE | 2020-08-19 09:20 | Progress Note ---
Assessment and Plan . The high probability of a clinically significant, sudden or life threatening deterioration of the [respiratory, neurologic and immunologic] system(s) required my full and direct attention, intervention and personal management. The aggregate critical care time was [38] minutes. This time is in addition to time spent performing reported procedures but includes the following: [x] Data Review and interpretation [x] Patient assessment and monitoring of vital signs [x] Documentation [x] Medication orders and management Toxic metabolic encephalopathy. Etiology is unknown. 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 Patient started on vancomycin, Rocephin and acyclovir. LP completed by the emergency room physician and await studies. ID and neurology consultations. Sepsis. Etiology is unknown. Continue IV antibiotics ID consult appreciated Acute hypoxic respiratory failure. Patient will be continued on mechanical ventilation. Pulmonary consulted. Patient currently on sedation with fentanyl drip. Hypertension. Resume antihypertensive medications Diabetes mellitus type 2. Continue Accu-Cheks and sliding scale insulin Hyperlipidemia. Statins. Diabetic foot ulcer. Wound care consultation. Subjective Date of service: 08/19/20 Principal diagnosis: Ac hypoxemic resp failure; Ac encephalopathy (toxic me tabolic); Sev. Sepsis Interval history: This is a 55-year-old male with past medical history of tobacco abuse, hypertension, hyperlipidemia diabetes mellitus type 2 and peripheral vascular disease who [place] and noted to have lethargy and hyporesponsiveness. Patient was transferred to our facility and intubated by the ER physician due to airway compromise/airway protection. The patient was noted to have an ABG of pH 7.33/PCO2 36/PO2 105 on room air. The patient had most recent hospitalization June 2020 and treated for chest pain attributed to costochondritis and chronic diastolic heart failure. Also, patient has had multiple peripheral artery procedures most recently 4 months ago and treatment for left diabetic foot ulceration/infection. Patient previously had an x-ray negative for osteomyelitis but did have gas. The patient had a PICC line placed in February and was to receive 3 weeks of vancomycin IV. Patient now presents with as noted above altered mentation and acute hypoxic respiratory failure. No other history is obtained as the patient is intubated on mechanical ventilation. 08/16/2020. Wean sedation of fentanyl as tolerated. Patient currently on AC mode ventilation with rate of 20, tidal volume 450, FiO2 40% and PEEP of 6. Pulmonology following. ID and neurology consultations. 08/17/2020 Patient intubated, weaning in progress. 08/18/2020 Patient intubated weaning in progress Objective - Exam Narrative Exam: Patient intubated - Constitutional Vitals: Vital Signs - 12hr 08/18/20 08/18/20 08/18/20 21:30 22:00 22:30 Temperature Pulse Rate 104 H 104 H 97 H Pulse Rate [ From Monitor] Respiratory 19 19 18 Rate Blood Pressure 146/90 160/105 163/94 O2 Sat by Pulse 100 100 100 Oximetry 08/18/20 08/18/20 08/18/20 23:00 23:01 23:14 Temperature 98.8 F Pulse Rate 90 83 Pulse Rate [ From Monitor] Respiratory 20 19 Rate Blood Pressure 95/54 95/54 O2 Sat by Pulse 100 100 Oximetry 08/18/20 08/18/20 08/19/20 23:30 23:41 00:00 Temperature Pulse Rate 101 H 106 H 101 H Pulse Rate [ 98 H From Monitor] Respiratory 18 16 Rate Blood Pressure 184/103 172/99 179/98 O2 Sat by Pulse 100 100 100 Oximetry 08/19/20 08/19/20 08/19/20 00:30 01:00 01:31 Temperature Pulse Rate 98 H 94 H 87 Pulse Rate [ From Monitor] Respiratory 16 20 20 Rate Blood Pressure 149/95 158/88 95/56 O2 Sat by Pulse 99 99 99 Oximetry 08/19/20 08/19/20 08/19/20 02:00 02:30 03:01 Temperature Pulse Rate 83 92 H 124 H Pulse Rate [ From Monitor] Respiratory 21 21 22 Rate Blood Pressure 106/67 152/97 124/57 O2 Sat by Pulse 100 100 100 Oximetry 08/19/20 08/19/20 08/19/20 03:30 03:36 03:52 Temperature 98.4 F Pulse Rate 108 H 96 H Pulse Rate [ From Monitor] Respiratory 19 Rate Blood Pressure 182/110 170/101 O2 Sat by Pulse 100 99 Oximetry 08/19/20 08/19/20 08/19/20 04:00 04:01 04:31 Temperature Pulse Rate 96 H 106 H 131 H Pulse Rate [ 95 H From Monitor] Respiratory 20 19 23 Rate Blood Pressure 177/111 216/132 O2 Sat by Pulse 100 100 98 Oximetry 08/19/20 08/19/20 08/19/20 05:00 05:30 06:00 Temperature Pulse Rate 106 H 125 H 110 H Pulse Rate [ From Monitor] Respiratory 20 18 11 L Rate Blood Pressure 133/81 143/112 170/94 O2 Sat by Pulse 94 97 94 Oximetry 08/19/20 08/19/20 06:30 08:05 Temperature Pulse Rate 104 H 96 H Pulse Rate [ From Monitor] Respiratory 11 L Rate Blood Pressure 154/83 162/93 O2 Sat by Pulse 95 96 Oximetry General appearance: Present: no acute distress, well-nourished - EENT Eyes: PERRL, EOM intact ENT: hearing intact, clear oral mucosa Ears: bilateral: normal - Neck Neck: supple, normal ROM - Respiratory Respiratory effort: normal Respiratory: bilateral: CTA - Breasts Breasts: normal - Cardiovascular Heart rate: 78 Rhythm: regular Heart Sounds: Present: S1 & S2. Absent: gallop, rub Extremities: pulses intact, No edema, normal color, Full ROM - Gastrointestinal General gastrointestinal: Present: soft, non-tender, non-distended, normal bowel sounds - Genitourinary Male genitourinary: normal - Integumentary Integumentary: clear, warm, dry - Musculoskeletal Musculoskeletal: generalized weakness - Neurologic Neurologic: other (Unresponsive) - Psychiatric Psychiatric: agitated, other (Unresponsive) - Labs CBC & Chem 7: 08/24/20 04:19 08/24/20 04:19 Labs: Abnormal lab results 08/15/20 08/15/20 08/15/20 Range/Units 06:00 07:32 07:32 ABG pH (7.320-7.450) POC ABG pO2 (83-108) mmHg Sodium 132 L (137-145) mmol/L Potassium (3.6-5.0) mmol/L Chloride 94.3 L (98-107) mmol/L Carbon Dioxide 19 L (22-30) mmol/L BUN 45 H (9-20) mg/dL Creatinine 1.6 H (0.8-1.3) mg/dL Glucose 285 H (75-100) mg/dL POC Glucose (70-105) mg/dL Calcium 10.4 H (8.4-10.2) mg/dL Total Creatine Kinase 446 H (55-170) units/L CK-MB (CK-2) 8.8 H (0.0-4.0) ng/mL Total Protein (6.3-8.2) g/dL Albumin 3.7 L (3.9-5) g/dL Salicylates < 0.3 L (2.8-20.0) mg/dL Acetaminophen < 5.0 L (10.0-30.0) ug/mL 08/15/20 08/16/20 08/16/20 Range/Units 10:45 08:59 Unknown ABG pH (7.320-7.450) POC ABG pO2 (83-108) mmHg Sodium (137-145) mmol/L Potassium 3.4 L (3.6-5.0) mmol/L Chloride 109.0 H (98-107) mmol/L Carbon Dioxide 17 L (22-30) mmol/L BUN 32 H 33 H (9-20) mg/dL Creatinine (0.8-1.3) mg/dL Glucose 297 H 186 H 233 H (75-100) mg/dL POC Glucose (70-105) mg/dL Calcium (8.4-10.2) mg/dL Total Creatine Kinase (55-170) units/L CK-MB (CK-2) (0.0-4.0) ng/mL Total Protein 6.0 L (6.3-8.2) g/dL Albumin 3.1 L (3.9-5) g/dL Salicylates (2.8-20.0) mg/dL Acetaminophen (10.0-30.0) ug/mL 08/18/20 08/19/20 08/19/20 Range/Units 12:26 00:02 04:19 ABG pH 7.451 H (7.320-7.450) POC ABG pO2 172.9 H (83-108) mmHg Sodium (137-145) mmol/L Potassium (3.6-5.0) mmol/L Chloride (98-107) mmol/L Carbon Dioxide (22-30) mmol/L BUN (9-20) mg/dL Creatinine (0.8-1.3) mg/dL Glucose (75-100) mg/dL POC Glucose 112 H 107 H (70-105) mg/dL Calcium (8.4-10.2) mg/dL Total Creatine Kinase (55-170) units/L CK-MB (CK-2) (0.0-4.0) ng/mL Total Protein (6.3-8.2) g/dL Albumin (3.9-5) g/dL Salicylates (2.8-20.0) mg/dL Acetaminophen (10.0-30.0) ug/mL 08/19/20 Range/Units 05:34 ABG pH (7.320-7.450) POC ABG pO2 (83-108) mmHg Sodium (137-145) mmol/L Potassium (3.6-5.0) mmol/L Chloride (98-107) mmol/L Carbon Dioxide (22-30) mmol/L BUN (9-20) mg/dL Creatinine (0.8-1.3) mg/dL Glucose (75-100) mg/dL POC Glucose 114 H (70-105) mg/dL Calcium (8.4-10.2) mg/dL Total Creatine Kinase (55-170) units/L CK-MB (CK-2) (0.0-4.0) ng/mL Total Protein (6.3-8.2) g/dL Albumin (3.9-5) g/dL Salicylates (2.8-20.0) mg/dL Acetaminophen (10.0-30.0) ug/mL HEART Score - HEART Score Troponin: Troponin T < 0.010 ng/mL (0.00-0.029) 08/15/20 06:00
[2020-08-19] MEDS: ENOXAPARIN 40 MG/0.4 ML INJ SUB-Q SCH ×2 (09:43→23:31)
[2020-08-19] MEDS: FAMOTIDINE 20 MG TAB PO SCH ×2 (09:56→23:33)
[2020-08-19] MEDS: VANCOMYCIN 1,750 MG in SODIUM CHLORIDE 0.9% 500 ML 500 ML IV SCH ×2 (09:56→23:33)
[2020-08-19] MEDS: LORazepam 2 MG/ML VIAL IV PRN (10:19)
--- NOTE | 2020-08-19 11:02 | Progress Note ---
Assessment and Plan -Severe sepsis with septic shock -Acute hypoxic respiratory failure on MVS -Acute encephalopathy (toxic, metabolic) -Acute alcohol intoxication -Possible aspiration pneumonitis...RLL infiltrate -Tobacco abuse disorder/Nicotine dependence -Diabetic foot ulcer Start Seroquel and Phenobarbital Wean off fentanyl and Propofol 12 lead EKG to monitor QTc, daily EKG fro 3 days SBT today, all other care as documented below -VAP bundle addressed -CXR, ABG in am -Lung protective strategies, -Daily SBT, SAT -CIWA protocol, extreme agitation, -Titrate sedation to RASS of -1 to -2 -Wean FIO2 for O2 sats >90% -Aspiration precautions, HOB >40 - Bronchodilators with pulmonary hygiene per RT - Accuchecks with glycemic control per SSI (While critically ill target blood glucose of 140-180 mg/dL; avoid hypoglycemia) - Avoid benzodiazepines, reduce the possibility of delirium - prn analgesia per CPOT score - Maintenance of sleep-wake cycle, avoid delirium -VTE prophylaxis with Lovenox -Stress ulcer prophylaxis Famotidine -Neurology work up on going -Avoid nephrotoxins, adjust all medications for GFR and CrCL -Antibiotics per ID( Vancomycin and Cefepime), de-escalate as clinically indicated, follow cultures -Enteric nutritional support, at goal - Continue mobility protocol, frequent turning and off loading to prevent further pressure ulcers - Monitor hemodynamics closely -Supportive transfusions as indicated to keep HgB >7g/dL -Nicotine withdrawal precautions CONDITION: CRITICAL PROGNOSIS: GUARDED COMPLEXITY OF MEDICAL DECISION MAKING : HIGH CODE STATUS: FULL CODE The high probability of a clinically significant, sudden or life-threatening deterioration of the [respiratory, cardiovascular & neurologic] system(s) required my full and direct attention, intervention and personal management. The aggregate critical care time was [35] minutes without overlap. Time includes spent on; [x] Data Review and interpretation [x] Patient assessment and monitoring of vital signs [x] Documentation [x] Medication orders and management Subjective Date of service: 08/19/20 Principal diagnosis: Ac hypoxemic resp failure; Ac encephalopathy (toxic metabolic); Sev. Sepsis Interval history: 55 years old male with history of diabetes mellitus, hypertension, peripheral vascular disease, alcohol abuse, tobacco abuse, left foot diabetic ulceration with an abscess secondary to MRSA in February 2020, admitted on 08/16/2020 due to altered mental status lethargy unresponsive .Urinalysis negative. SARS-CoV-2 PCR negative s/p lumbar puncture spinal tap -WBCs 10, RBCs 381. Follow up for: Acute hypoxemic resp failure;Sepsis; Acute toxic-metabolic encephlaopthy ; Seen and examined. Vitals, labs, medications, cahrt and imaging reviewed. Remains on mechanical vent support, on Propofol and Fentanyyl with labile blood pressures associated with degree of sedation. No adverse overnight events ON MVS (AC-VC 20/450/+6/30% Objective - Exam Narrative Exam: General appearance: Sedated in no acute distress intubated Eyes: anicteric sclerae, moist conjunctivae; no lid-lag; PERRLA HENT: Atraumatic; oropharynx clear limited endotracheal tube in place ETT at 23cm at the lip- no dysynchrony Lungs: bilateral rhonchi CV: RRR no murmur Abdomen: Soft, non-tender; no masses or hepatosplenomegaly Extremities: Left foot partial amputation healed. Right elbow with an open wound, deep, draining serous fluid Skin: Multiple lower extremity skin tear. Psych: Sedated Neuro: Sedated - Vital Signs - 12hr 08/18/20 08/18/20 08/18/20 23:14 23:30 23:41 Temperature 98.8 F Pulse Rate 101 H 106 H Pulse Rate [ From Monitor] Respiratory 18 Rate Blood Pressure 184/103 172/99 O2 Sat by Pulse 100 100 Oximetry 08/19/20 08/19/20 08/19/20 00:00 00:30 01:00 Temperature Pulse Rate 101 H 98 H 94 H Pulse Rate [ 98 H From Monitor] Respiratory 16 16 20 Rate Blood Pressure 179/98 149/95 158/88 O2 Sat by Pulse 100 99 99 Oximetry 08/19/20 08/19/20 08/19/20 01:31 02:00 02:30 Temperature Pulse Rate 87 83 92 H Pulse Rate [ From Monitor] Respiratory 20 21 21 Rate Blood Pressure 95/56 106/67 152/97 O2 Sat by Pulse 99 100 100 Oximetry 08/19/20 08/19/20 08/19/20 03:01 03:30 03:36 Temperature 98.4 F Pulse Rate 124 H 108 H Pulse Rate [ From Monitor] Respiratory 22 19 Rate Blood Pressure 124/57 182/110 O2 Sat by Pulse 100 100 Oximetry 08/19/20 08/19/20 08/19/20 03:52 04:00 04:01 Temperature Pulse Rate 96 H 96 H 106 H Pulse Rate [ 95 H From Monitor] Respiratory 20 19 Rate Blood Pressure 170/101 177/111 O2 Sat by Pulse 99 100 100 Oximetry 08/19/20 08/19/20 08/19/20 04:31 05:00 05:30 Temperature Pulse Rate 131 H 106 H 125 H Pulse Rate [ From Monitor] Respiratory 23 20 18 Rate Blood Pressure 216/132 133/81 143/112 O2 Sat by Pulse 98 94 97 Oximetry 08/19/20 08/19/20 08/19/20 06:00 06:30 08:05 Temperature Pulse Rate 110 H 104 H 96 H Pulse Rate [ From Monitor] Respiratory 11 L 11 L Rate Blood Pressure 170/94 154/83 162/93 O2 Sat by Pulse 94 95 96 Oximetry CBC and BMP: 08/16/20 Unknown 08/20/20 07:45 ABG, PT/INR, D-dimer: ABG ABG pH 7.451 (7.320-7.450) H 08/19/20 04:19 POC ABG pCO2 33.9 mmHg (32.0-48.0) 08/19/20 04:19 ABG pCO2 43.6 mm Hg 08/18/20 04:00 POC ABG pO2 172.9 mmHg (83-108) H 08/19/20 04:19 ABG pO2 75.1 mm Hg (80.0-90.0) L 08/18/20 04:00 POC ABG HCO3 23.1 08/19/20 04:19 ABG O2 Saturation 95.4 % (95.0-99.0) 08/18/20 04:00 PT/INR, D-dimer PT 13.9 Sec. (12.2-14.9) 08/16/20 Unknown INR 1.06 (0.87-1.13) 08/16/20 Unknown D-Dimer 882.17 ng/mlDDU (0-234) H 08/16/20 14:45 D-Dimer 925.88 ng/mlDDU (0-234) H 08/16/20 14:45 Abnormal lab findings: Abnormal Labs 08/15/20 08/15/20 08/15/20 06:00 07:32 07:32 WBC Hct RDW Luce # (Auto) Seg Neutrophils % Seg Neutrophils # APTT D-Dimer ABG pH POC ABG pO2 ABG pO2 ABG HCO3 ABG Base Excess ABG Hemoglobin ABG Chloride ABG Glucose Oxyhemoglobin Sodium 132 L Potassium Chloride 94.3 L Carbon Dioxide 19 L BUN 45 H Creatinine 1.6 H Glucose 285 H POC Glucose Calcium 10.4 H Phosphorus Magnesium Total Creatine Kinase 446 H CK-MB (CK-2) 8.8 H C-Reactive Protein Total Protein Albumin 3.7 L Arterial Blood Glucose Arterial Blood Ionized Calcium Salicylates < 0.3 L Acetaminophen < 5.0 L 08/15/20 08/15/20 08/16/20 10:45 21:10 04:30 WBC Hct RDW Luce # (Auto) Seg Neutrophils % Seg Neutrophils # APTT D-Dimer ABG pH 7.338 L 7.345 L POC ABG pO2 ABG pO2 105.9 H 134.5 H ABG HCO3 19.2 L ABG Base Excess -5.9 L -5.2 L ABG Hemoglobin 12.3 L 12.1 L ABG Chloride ABG Glucose Oxyhemoglobin Sodium Potassium Chloride Carbon Dioxide BUN Creatinine Glucose 297 H POC Glucose Calcium Phosphorus Magnesium Total Creatine Kinase CK-MB (CK-2) C-Reactive Protein Total Protein Albumin Arterial Blood Glucose Arterial Blood Ionized Calcium Salicylates Acetaminophen 08/16/20 08/16/20 08/16/20 08:59 14:45 14:45 WBC Hct 35.3 L RDW 15.7 H Luce # (Auto) Seg Neutrophils % Seg Neutrophils # APTT D-Dimer ABG pH POC ABG pO2 ABG pO2 ABG HCO3 ABG Base Excess ABG Hemoglobin ABG Chloride ABG Glucose Oxyhemoglobin Sodium Potassium 3.4 L Chloride 109.0 H Carbon Dioxide BUN 32 H Creatinine Glucose 186 H POC Glucose Calcium Phosphorus 1.50 L Magnesium 1.60 L Total Creatine Kinase CK-MB (CK-2) C-Reactive Protein Total Protein 6.0 L Albumin 3.1 L Arterial Blood Glucose Arterial Blood Ionized Calcium Salicylates Acetaminophen 08/16/20 08/16/20 08/16/20 14:45 14:45 14:45 WBC Hct RDW Luce # (Auto) Seg Neutrophils % Seg Neutrophils # APTT D-Dimer 925.88 H 882.17 H ABG pH POC ABG pO2 ABG pO2 ABG HCO3 ABG Base Excess ABG Hemoglobin ABG Chloride ABG Glucose Oxyhemoglobin Sodium Potassium Chloride Carbon Dioxide BUN Creatinine Glucose POC Glucose Calcium Phosphorus Magnesium Total Creatine Kinase CK-MB (CK-2) C-Reactive Protein 2.70 H Total Protein Albumin Arterial Blood Glucose Arterial Blood Ionized Calcium Salicylates Acetaminophen 08/16/20 08/16/20 08/16/20 17:42 Unknown Unknown WBC 16.7 H Hct RDW Luce # (Auto) 1.0 H Seg Neutrophils % 79.9 H Seg Neutrophils # 13.4 H APTT 23.9 L D-Dimer ABG pH POC ABG pO2 ABG pO2 ABG HCO3 ABG Base Excess ABG Hemoglobin ABG Chloride ABG Glucose Oxyhemoglobin Sodium Potassium Chloride Carbon Dioxide BUN Creatinine Glucose POC Glucose 169 H Calcium Phosphorus Magnesium Total Creatine Kinase CK-MB (CK-2) C-Reactive Protein Total Protein Albumin Arterial Blood Glucose Arterial Blood Ionized Calcium Salicylates Acetaminophen 08/16/20 08/17/20 08/17/20 Unknown 00:06 03:40 WBC Hct RDW Luce # (Auto) Seg Neutrophils % Seg Neutrophils # APTT D-Dimer ABG pH POC ABG pO2 60.8 L ABG pO2 ABG HCO3 ABG Base Excess ABG Hemoglobin ABG Chloride 115.0 H ABG Glucose 139 H Oxyhemoglobin Sodium Potassium Chloride Carbon Dioxide 17 L BUN 33 H Creatinine Glucose 233 H POC Glucose 125 H Calcium Phosphorus Magnesium Total Creatine Kinase CK-MB (CK-2) C-Reactive Protein Total Protein Albumin Arterial Blood Glucose 139 H Arterial Blood Ionized Calcium 5.5 H Salicylates Acetaminophen 08/17/20 08/17/20 08/17/20 05:52 12:30 17:47 WBC Hct RDW Luce # (Auto) Seg Neutrophils % Seg Neutrophils # APTT D-Dimer ABG pH POC ABG pO2 ABG pO2 ABG HCO3 ABG Base Excess ABG Hemoglobin ABG Chloride ABG Glucose Oxyhemoglobin Sodium Potassium Chloride Carbon Dioxide BUN Creatinine Glucose POC Glucose 139 H 133 H 157 H Calcium Phosphorus Magnesium Total Creatine Kinase CK-MB (CK-2) C-Reactive Protein Total Protein Albumin Arterial Blood Glucose Arterial Blood Ionized Calcium Salicylates Acetaminophen 08/18/20 08/18/20 08/18/20 00:08 04:00 05:31 WBC Hct RDW Luce # (Auto) Seg Neutrophils % Seg Neutrophils # APTT D-Dimer ABG pH 7.315 L POC ABG pO2 ABG pO2 75.1 L ABG HCO3 ABG Base Excess -4.3 L ABG Hemoglobin 11.9 L ABG Chloride ABG Glucose Oxyhemoglobin 93.7 L Sodium Potassium Chloride Carbon Dioxide BUN Creatinine Glucose POC Glucose 129 H 114 H Calcium Phosphorus Magnesium Total Creatine Kinase CK-MB (CK-2) C-Reactive Protein Total Protein Albumin Arterial Blood Glucose Arterial Blood Ionized Calcium Salicylates Acetaminophen 08/18/20 08/19/20 08/19/20 12:26 00:02 04:19 WBC Hct RDW Luce # (Auto) Seg Neutrophils % Seg Neutrophils # APTT D-Dimer ABG pH 7.451 H POC ABG pO2 172.9 H ABG pO2 ABG HCO3 ABG Base Excess ABG Hemoglobin ABG Chloride ABG Glucose Oxyhemoglobin Sodium Potassium Chloride Carbon Dioxide BUN Creatinine Glucose POC Glucose 112 H 107 H Calcium Phosphorus Magnesium Total Creatine Kinase CK-MB (CK-2) C-Reactive Protein Total Protein Albumin Arterial Blood Glucose Arterial Blood Ionized Calcium Salicylates Acetaminophen 08/19/20 05:34 WBC Hct RDW Luce # (Auto) Seg Neutrophils % Seg Neutrophils # APTT D-Dimer ABG pH POC ABG pO2 ABG pO2 ABG HCO3 ABG Base Excess ABG Hemoglobin ABG Chloride ABG Glucose Oxyhemoglobin Sodium Potassium Chloride Carbon Dioxide BUN Creatinine Glucose POC Glucose 114 H Calcium Phosphorus Magnesium Total Creatine Kinase CK-MB (CK-2) C-Reactive Protein Total Protein Albumin Arterial Blood Glucose Arterial Blood Ionized Calcium Salicylates Acetaminophen Chest x-ray: image reviewed Allied health notes reviewed: RT
[2020-08-19] MEDS: QUEtiapine 200 MG TAB PO SCH ×2 (12:14→23:33)
[2020-08-19] MEDS: PHENobarbital 20 MG/5 ML ORAL LIQD FEEDTUBE SCH ×2 (14:42→23:58)
--- NOTE | 2020-08-19 14:45 | Progress Note ---
Assessment and Plan . The high probability of a clinically significant, sudden or life threatening deterioration of the [respiratory, neurologic and immunologic] system(s) required my full and direct attention, intervention and personal management. The aggregate critical care time was [38] minutes. This time is in addition to time spent performing reported procedures but includes the following: [x] Data Review and interpretation [x] Patient assessment and monitoring of vital signs [x] Documentation [x] Medication orders and management Toxic metabolic encephalopathy. Etiology is unknown. 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 Patient started on vancomycin, Rocephin and acyclovir. LP completed by the emergency room physician which was noncontributory Sepsis. Etiology is unknown. Continue IV antibiotics ID consult appreciated Differential diagnosis of pneumonia and discitis Acute hypoxic respiratory failure. Patient will be continued on mechanical ventilation. Pulmonary consulted. Patient currently on sedation with fentanyl drip. Hypertension. Resume antihypertensive medications Diabetes mellitus type 2. Continue Accu-Cheks and sliding scale insulin Hyperlipidemia. Statins. Diabetic foot ulcer. Wound care consultation. Subjective Date of service: 08/19/20 Principal diagnosis: Ac hypoxemic resp failure; Ac encephalopathy (toxic metabolic); Sev. Sepsis Interval history: This is a 55-year-old male with past medical history of tobacco abuse, hypertension, hyperlipidemia diabetes mellitus type 2 and peripheral vascular disease who [place] and noted to have lethargy and hyporesponsiveness. Patient was transferred to our facility and intubated by the ER physician due to airway compromise/airway protection. The patient was noted to have an ABG of pH 7.33/PCO2 36/PO2 105 on room air. The patient had most recent hospitalization June 2020 and treated for chest pain attributed to costochondritis and chronic diastolic heart failure. Also, patient has had multiple peripheral artery procedures most recently 4 months ago and treatment for left diabetic foot ulceration/infection. Patient previously had an x-ray negative for osteomyelitis but did have gas. The patient had a PICC line placed in February and was to receive 3 weeks of vancomycin IV. Patient now presents with as noted above altered mentation and acute hypoxic respiratory failure. No other history is obtained as the patient is intubated on mechanical ventilation. 08/16/2020. Wean sedation of fentanyl as tolerated. Patient currently on AC mode ventilation with rate of 20, tidal volume 450, FiO2 40% and PEEP of 6. Pulmonology following. ID and neurology consultations. 08/17/2020 Patient intubated, weaning in progress. 08/18/2020 Patient intubated weaning in progress 08/19/2020 Patient intubated and weaning in progress Objective - Exam Narrative Exam: Patient intubated - Constitutional Vitals: Vital Signs - 12hr 08/19/20 08/19/20 08/19/20 03:01 03:30 03:36 Temperature 98.4 F Pulse Rate 124 H 108 H Pulse Rate [ From Monitor] Respiratory 22 19 Rate Blood Pressure 124/57 182/110 O2 Sat by Pulse 100 100 Oximetry 08/19/20 08/19/20 08/19/20 03:52 04:00 04:01 Temperature Pulse Rate 96 H 96 H 106 H Pulse Rate [ 95 H From Monitor] Respiratory 20 19 Rate Blood Pressure 170/101 177/111 O2 Sat by Pulse 99 100 100 Oximetry 08/19/20 08/19/20 08/19/20 04:31 05:00 05:30 Temperature Pulse Rate 131 H 106 H 125 H Pulse Rate [ From Monitor] Respiratory 23 20 18 Rate Blood Pressure 216/132 133/81 143/112 O2 Sat by Pulse 98 94 97 Oximetry 08/19/20 08/19/20 08/19/20 06:00 06:30 07:00 Temperature Pulse Rate 110 H 104 H 110 H Pulse Rate [ From Monitor] Respiratory 11 L 11 L 20 Rate Blood Pressure 170/94 154/83 164/88 O2 Sat by Pulse 94 95 93 Oximetry 08/19/20 08/19/20 08/19/20 07:30 08:00 08:05 Temperature 98.9 F Pulse Rate 115 H 112 H 96 H Pulse Rate [ 112 H From Monitor] Respiratory 19 20 Rate Blood Pressure 171/105 162/93 162/93 O2 Sat by Pulse 97 95 96 Oximetry 08/19/20 08/19/20 08/19/20 08:30 09:00 09:30 Temperature Pulse Rate 112 H 101 H 98 H Pulse Rate [ From Monitor] Respiratory 19 18 20 Rate Blood Pressure 171/101 145/86 125/78 O2 Sat by Pulse 93 93 94 Oximetry 08/19/20 08/19/20 08/19/20 10:01 10:30 11:00 Temperature Pulse Rate 119 H 90 84 Pulse Rate [ From Monitor] Respiratory 18 20 20 Rate Blood Pressure 172/100 92/53 98/59 O2 Sat by Pulse 97 95 95 Oximetry 08/19/20 08/19/20 08/19/20 11:30 11:55 12:00 Temperature Pulse Rate 102 H 96 H 99 H Pulse Rate [ 99 H From Monitor] Respiratory 15 20 15 Rate Blood Pressure 164/80 93/54 160/88 O2 Sat by Pulse 93 97 96 Oximetry 08/19/20 08/19/20 08/19/20 12:30 13:00 13:30 Temperature Pulse Rate 93 H 98 H 93 H Pulse Rate [ From Monitor] Respiratory 20 20 17 Rate Blood Pressure 89/50 93/54 90/56 O2 Sat by Pulse 96 96 97 Oximetry General appearance: Present: no acute distress, well-nourished - EENT Eyes: PERRL, EOM intact ENT: hearing intact, clear oral mucosa Ears: bilateral: normal - Neck Neck: supple, normal ROM - Respiratory Respiratory effort: normal Respiratory: bilateral: CTA - Breasts Breasts: normal - Cardiovascular Heart rate: 78 Rhythm: regular Heart Sounds: Present: S1 & S2. Absent: gallop, rub Extremities: pulses intact, No edema, normal color, Full ROM - Gastrointestinal General gastrointestinal: Present: soft, non-tender, non-distended, normal bowel sounds - Genitourinary Male genitourinary: normal - Integumentary Integumentary: clear, warm, dry - Musculoskeletal Musculoskeletal: 1, strength equal bilaterally - Neurologic Neurologic: moves all extremities - Psychiatric Psychiatric: memory intact, appropriate mood/affect, intact judgment & insight - Allied health notes Allied health notes reviewed: nursing, case management - Labs CBC & Chem 7: 08/24/20 04:19 08/24/20 04:19 Labs: Abnormal lab results 08/19/20 08/19/20 08/19/20 Range/Units 00:02 04:19 05:34 ABG pH 7.451 H (7.320-7.450) POC ABG pO2 172.9 H (83-108) mmHg POC Glucose 107 H 114 H (70-105) mg/dL 08/19/20 Range/Units 12:48 ABG pH (7.320-7.450) POC ABG pO2 (83-108) mmHg POC Glucose 198 H (70-105) mg/dL HEART Score - HEART Score Troponin: Troponin T < 0.010 ng/mL (0.00-0.029) 08/15/20 06:00
[2020-08-20] MEDS: PHENobarbital 20 MG/5 ML ORAL LIQD FEEDTUBE SCH ×3 (05:57→22:29)
[2020-08-20] MEDS: CEFEPIME/NS 2 GM/100 ML 2 GM/100 ML BAG IV SCH ×3 (05:57→22:06)
[2020-08-20] MEDS: INSULIN LISPRO 100 UNIT/ML VIAL 3 mL SUB-Q SCH ×3 (07:56→18:17)
[2020-08-20] MEDS: QUEtiapine 200 MG TAB PO SCH ×2 (09:06→21:55)
[2020-08-20] MEDS: FAMOTIDINE 20 MG TAB PO SCH ×2 (09:06→21:56)
[2020-08-20] MEDS: VANCOMYCIN 1,750 MG in SODIUM CHLORIDE 0.9% 500 ML 500 ML IV SCH ×2 (09:06→22:07)
[2020-08-20 13:50] LABS: Blood Urea Nitrogen 19 mg/dL (9-20); Calcium 9.3 mg/dL (8.4-10.2); Hemolysis Index 7
[2020-08-20 14:01] LABS: BUN/Creatinine Ratio 32
[2020-08-20] MEDS: fentaNYL DRIP Premix 2,000 MCG/100 ML BAG IV SCH ×2 (14:30→21:29)
--- NOTE | 2020-08-20 14:41 | Progress Note ---
Assessment and Plan -Severe sepsis with septic shock -Acute hypoxic respiratory failure on MVS -Acute encephalopathy (toxic, metabolic) -Acute alcohol intoxication -Possible aspiration pneumonitis...RLL infiltrate -Tobacco abuse disorder/Nicotine dependence -Diabetic foot ulcer Continue Seroquel and Phenobarbital Wean off fentanyl and Propofol 12 lead EKG to monitor QTc, Discontinue LIJ CVC, place peripheral IVs Adjust insulin therapy for better glycemic control Replace electrolytes as clinically indicated SBT today, all other care as documented below -VAP bundle addressed -CXR, ABG in am -Lung protective strategies, -Daily SBT, SAT -CIWA protocol, extreme agitation, -Titrate sedation to RASS of -1 to -2 -Wean FIO2 for O2 sats >90% -Aspiration precautions, HOB >40 - Bronchodilators with pulmonary hygiene per RT - Accuchecks with glycemic control per SSI (While critically ill target blood glucose of 140-180 mg/dL; avoid hypoglycemia) - Avoid benzodiazepines, reduce the possibility of delirium - prn analgesia per CPOT score - Maintenance of sleep-wake cycle, avoid delirium -VTE prophylaxis with Lovenox -Stress ulcer prophylaxis Famotidine -Neurology work up on going -Avoid nephrotoxins, adjust all medications for GFR and CrCL -Antibiotics per ID( Vancomycin and Cefepime), de-escalate as clinically indicated, follow cultures -Enteric nutritional support, at goal - Continue mobility protocol, frequent turning and off loading to prevent further pressure ulcers - Monitor hemodynamics closely -Supportive transfusions as indicated to keep HgB >7g/dL -Nicotine withdrawal precautions CONDITION: CRITICAL PROGNOSIS: GUARDED COMPLEXITY OF MEDICAL DECISION MAKING : HIGH CODE STATUS: FULL CODE The high probability of a clinically significant, sudden or life-threatening deterioration of the [respiratory, cardiovascular & neurologic] system(s) required my full and direct attention, intervention and personal management. The aggregate critical care time was [32] minutes without overlap. Time includes spent on; [x] Data Review and interpretation [x] Patient assessment and monitoring of vital signs [x] Documentation [x] Medication orders and management Subjective Date of service: 08/20/20 Principal diagnosis: Ac hypoxemic resp failure; Ac encephalopathy (toxic metabolic); Sev. Sepsis Interval history: 55 years old male with history of diabetes mellitus, hypertension, peripheral vascular disease, alcohol abuse, tobacco abuse, left foot diabetic ulceration with an abscess secondary to MRSA in February 2020, admitted on 08/16/2020 due to altered mental status lethargy unresponsive .Urinalysis negative. SARS-CoV-2 PCR negative s/p lumbar puncture spinal tap -WBCs 10, RBCs 381. Follow up for: Acute hypoxemic resp failure;Sepsis; Acute toxic-metabolic encephalopthy ; Seen and examined. Vitals, labs, medications, chart and imaging reviewed. Remains on mechanical vent support, off Propofol and Fentanyl with episodes of agitation which improves with verbal de-escalation No adverse overnight events. Poor glycemic control, still has LIJ CVC ON MVS (AC-VC 20/450/+6/30% Objective Vital Signs - 12hr 08/20/20 08/20/20 08/20/20 03:00 03:30 04:00 Temperature 99.2 F Pulse Rate 105 H 99 H 91 H Pulse Rate [ 91 H From Monitor] Respiratory 19 20 19 Rate Blood Pressure 101/67 102/70 O2 Sat by Pulse 94 97 95 Oximetry 08/20/20 08/20/20 08/20/20 04:01 04:30 04:39 Temperature Pulse Rate 116 H 106 H 112 H Pulse Rate [ From Monitor] Respiratory 18 22 Rate Blood Pressure 141/102 118/73 118/73 O2 Sat by Pulse 97 96 97 Oximetry 08/20/20 08/20/20 08/20/20 05:00 05:30 06:00 Temperature Pulse Rate 95 H 99 H 99 H Pulse Rate [ From Monitor] Respiratory 21 20 19 Rate Blood Pressure 100/68 110/70 147/83 O2 Sat by Pulse 98 94 97 Oximetry 08/20/20 08/20/20 08/20/20 06:30 07:01 07:30 Temperature Pulse Rate 120 H 122 H 108 H Pulse Rate [ From Monitor] Respiratory 16 26 H 21 Rate Blood Pressure 162/95 138/94 107/77 O2 Sat by Pulse 98 95 97 Oximetry 08/20/20 08/20/20 08/20/20 07:49 07:55 08:00 Temperature 98.2 F Pulse Rate 105 H 97 H 106 H Pulse Rate [ 106 H From Monitor] Respiratory 21 24 Rate Blood Pressure 133/86 118/72 139/82 O2 Sat by Pulse 97 100 96 Oximetry 08/20/20 08/20/20 08/20/20 08:30 09:00 09:30 Temperature Pulse Rate 95 H 107 H 99 H Pulse Rate [ From Monitor] Respiratory 16 18 18 Rate Blood Pressure 102/65 142/79 112/68 O2 Sat by Pulse 100 99 99 Oximetry 08/20/20 08/20/20 08/20/20 10:00 10:30 11:00 Temperature Pulse Rate 104 H 101 H 101 H Pulse Rate [ From Monitor] Respiratory 18 21 20 Rate Blood Pressure 132/71 107/61 127/74 O2 Sat by Pulse 98 99 99 Oximetry 08/20/20 08/20/20 08/20/20 11:30 11:50 12:00 Temperature 100.1 F H Pulse Rate 100 H 103 H 97 H Pulse Rate [ 97 H From Monitor] Respiratory 21 20 21 Rate Blood Pressure 138/73 135/75 119/60 O2 Sat by Pulse 99 99 100 Oximetry 08/20/20 08/20/20 08/20/20 12:30 13:00 13:30 Temperature Pulse Rate 97 H 97 H 99 H Pulse Rate [ From Monitor] Respiratory 20 18 16 Rate Blood Pressure 106/64 112/68 120/79 O2 Sat by Pulse 100 100 99 Oximetry 08/20/20 14:00 Temperature Pulse Rate 101 H Pulse Rate [ From Monitor] Respiratory 22 Rate Blood Pressure 139/79 O2 Sat by Pulse 99 Oximetry CBC and BMP: 08/25/20 04:33 08/25/20 04:33 ABG, PT/INR, D-dimer: ABG ABG pH 7.425 (7.320-7.450) 08/20/20 05:00 POC ABG pCO2 35.2 mmHg (32.0-48.0) 08/20/20 05:00 ABG pCO2 43.6 mm Hg 08/18/20 04:00 POC ABG pO2 72.1 mmHg (83-108) L 08/20/20 05:00 ABG pO2 75.1 mm Hg (80.0-90.0) L 08/18/20 04:00 POC ABG HCO3 22.6 08/20/20 05:00 ABG O2 Saturation 95.4 % (95.0-99.0) 08/18/20 04:00 PT/INR, D-dimer PT 13.9 Sec. (12.2-14.9) 08/16/20 Unknown INR 1.06 (0.87-1.13) 08/16/20 Unknown D-Dimer 882.17 ng/mlDDU (0-234) H 10/28/20 14:45 D-Dimer 925.88 ng/mlDDU (0-234) H 08/16/20 14:45 Abnormal lab findings: Abnormal Labs 08/15/20 08/15/20 08/15/20 06:00 07:32 07:32 WBC Hct RDW [place] # (Auto) Seg Neutrophils % Seg Neutrophils # APTT D-Dimer ABG pH POC ABG pO2 ABG pO2 ABG HCO3 ABG Base Excess ABG Hemoglobin ABG Sodium ABG Potassium ABG Chloride ABG Glucose Oxyhemoglobin Sodium 132 L Potassium Chloride 94.3 L Carbon Dioxide 19 L BUN 45 H Creatinine 1.6 H Glucose 285 H POC Glucose Calcium 10.4 H Phosphorus Magnesium Total Creatine Kinase 446 H CK-MB (CK-2) 8.8 H C-Reactive Protein Total Protein Albumin 3.7 L Triglycerides Arterial Blood Glucose Arterial Blood Ionized Calcium Salicylates < 0.3 L Acetaminophen < 5.0 L 08/15/20 08/15/20 08/16/20 10:45 21:10 04:30 WBC Hct RDW [place] # (Auto) Seg Neutrophils % Seg Neutrophils # APTT D-Dimer ABG pH 7.338 L 7.345 L POC ABG pO2 ABG pO2 105.9 H 134.5 H ABG HCO3 19.2 L ABG Base Excess -5.9 L -5.2 L ABG Hemoglobin 12.3 L 12.1 L ABG Sodium ABG Potassium ABG Chloride ABG Glucose Oxyhemoglobin Sodium Potassium Chloride Carbon Dioxide BUN Creatinine Glucose 297 H POC Glucose Calcium Phosphorus Magnesium Total Creatine Kinase CK-MB (CK-2) C-Reactive Protein Total Protein Albumin Triglycerides Arterial Blood Glucose Arterial Blood Ionized Calcium Salicylates Acetaminophen 08/16/20 08/16/20 08/16/20 08:59 14:45 14:45 WBC Hct 35.3 L RDW 15.7 H [place] # (Auto) Seg Neutrophils % Seg Neutrophils # APTT D-Dimer ABG pH POC ABG pO2 ABG pO2 ABG HCO3 ABG Base Excess ABG Hemoglobin ABG Sodium ABG Potassium ABG Chloride ABG Glucose Oxyhemoglobin Sodium Potassium 3.4 L Chloride 109.0 H Carbon Dioxide BUN 32 H Creatinine Glucose 186 H POC Glucose Calcium Phosphorus 1.50 L Magnesium 1.60 L Total Creatine Kinase CK-MB (CK-2) C-Reactive Protein Total Protein 6.0 L Albumin 3.1 L Triglycerides Arterial Blood Glucose Arterial Blood Ionized Calcium Salicylates Acetaminophen 08/16/20 08/16/20 08/16/20 14:45 14:45 14:45 WBC Hct RDW [place] # (Auto) Seg Neutrophils % Seg Neutrophils # APTT D-Dimer 925.88 H 882.17 H ABG pH POC ABG pO2 ABG pO2 ABG HCO3 ABG Base Excess ABG Hemoglobin ABG Sodium ABG Potassium ABG Chloride ABG Glucose Oxyhemoglobin Sodium Potassium Chloride Carbon Dioxide BUN Creatinine Glucose POC Glucose Calcium Phosphorus Magnesium Total Creatine Kinase CK-MB (CK-2) C-Reactive Protein 2.70 H Total Protein Albumin Triglycerides Arterial Blood Glucose Arterial Blood Ionized Calcium Salicylates Acetaminophen 08/16/20 08/16/20 08/16/20 17:42 Unknown Unknown WBC 16.7 H Hct RDW [place] # (Auto) 1.0 H Seg Neutrophils % 79.9 H Seg Neutrophils # 13.4 H APTT 23.9 L D-Dimer ABG pH POC ABG pO2 ABG pO2 ABG HCO3 ABG Base Excess ABG Hemoglobin ABG Sodium ABG Potassium ABG Chloride ABG Glucose Oxyhemoglobin Sodium Potassium Chloride Carbon Dioxide BUN Creatinine Glucose POC Glucose 169 H Calcium Phosphorus Magnesium Total Creatine Kinase CK-MB (CK-2) C-Reactive Protein Total Protein Albumin Triglycerides Arterial Blood Glucose Arterial Blood Ionized Calcium Salicylates Acetaminophen 08/16/20 08/17/20 08/17/20 Unknown 00:06 03:40 WBC Hct RDW [place] # (Auto) Seg Neutrophils % Seg Neutrophils # APTT D-Dimer ABG pH POC ABG pO2 60.8 L ABG pO2 ABG HCO3 ABG Base Excess ABG Hemoglobin ABG Sodium ABG Potassium ABG Chloride 115.0 H ABG Glucose 139 H Oxyhemoglobin Sodium Potassium Chloride Carbon Dioxide 17 L BUN 33 H Creatinine Glucose 233 H POC Glucose 125 H Calcium Phosphorus Magnesium Total Creatine Kinase CK-MB (CK-2) C-Reactive Protein Total Protein Albumin Triglycerides Arterial Blood Glucose 139 H Arterial Blood Ionized Calcium 5.5 H Salicylates Acetaminophen 08/17/20 08/17/20 08/17/20 05:52 12:30 17:47 WBC Hct RDW [place] # (Auto) Seg Neutrophils % Seg Neutrophils # APTT D-Dimer ABG pH POC ABG pO2 ABG pO2 ABG HCO3 ABG Base Excess ABG Hemoglobin ABG Sodium ABG Potassium ABG Chloride ABG Glucose Oxyhemoglobin Sodium Potassium Chloride Carbon Dioxide BUN Creatinine Glucose POC Glucose 139 H 133 H 157 H Calcium Phosphorus Magnesium Total Creatine Kinase CK-MB (CK-2) C-Reactive Protein Total Protein Albumin Triglycerides Arterial Blood Glucose Arterial Blood Ionized Calcium Salicylates Acetaminophen 08/18/20 08/18/20 08/18/20 00:08 04:00 05:31 WBC Hct RDW [place] # (Auto) Seg Neutrophils % Seg Neutrophils # APTT D-Dimer ABG pH 7.315 L POC ABG pO2 ABG pO2 75.1 L ABG HCO3 ABG Base Excess -4.3 L ABG Hemoglobin 11.9 L ABG Sodium ABG Potassium ABG Chloride ABG Glucose Oxyhemoglobin 93.7 L Sodium Potassium Chloride Carbon Dioxide BUN Creatinine Glucose POC Glucose 129 H 114 H Calcium Phosphorus Magnesium Total Creatine Kinase CK-MB (CK-2) C-Reactive Protein Total Protein Albumin Triglycerides Arterial Blood Glucose Arterial Blood Ionized Calcium Salicylates Acetaminophen 08/18/20 08/19/20 08/19/20 12:26 00:02 04:19 WBC Hct RDW [place] # (Auto) Seg Neutrophils % Seg Neutrophils # APTT D-Dimer ABG pH 7.451 H POC ABG pO2 172.9 H ABG pO2 ABG HCO3 ABG Base Excess ABG Hemoglobin ABG Sodium ABG Potassium ABG Chloride ABG Glucose Oxyhemoglobin Sodium Potassium Chloride Carbon Dioxide BUN Creatinine Glucose POC Glucose 112 H 107 H Calcium Phosphorus Magnesium Total Creatine Kinase CK-MB (CK-2) C-Reactive Protein Total Protein Albumin Triglycerides Arterial Blood Glucose Arterial Blood Ionized Calcium Salicylates Acetaminophen 08/19/20 08/19/20 08/19/20 05:34 12:48 18:01 WBC Hct RDW [place] # (Auto) Seg Neutrophils % Seg Neutrophils # APTT D-Dimer ABG pH POC ABG pO2 ABG pO2 ABG HCO3 ABG Base Excess ABG Hemoglobin ABG Sodium ABG Potassium ABG Chloride ABG Glucose Oxyhemoglobin Sodium Potassium Chloride Carbon Dioxide BUN Creatinine Glucose POC Glucose 114 H 198 H 211 H Calcium Phosphorus Magnesium Total Creatine Kinase CK-MB (CK-2) C-Reactive Protein Total Protein Albumin Triglycerides Arterial Blood Glucose Arterial Blood Ionized Calcium Salicylates Acetaminophen 08/19/20 08/20/20 08/20/20 21:40 05:00 05:15 WBC Hct RDW [place] # (Auto) Seg Neutrophils % Seg Neutrophils # APTT D-Dimer ABG pH POC ABG pO2 72.1 L ABG pO2 ABG HCO3 ABG Base Excess ABG Hemoglobin ABG Sodium 132.4 L ABG Potassium 2.7 L ABG Chloride ABG Glucose 293 H Oxyhemoglobin Sodium Potassium Chloride Carbon Dioxide BUN Creatinine Glucose POC Glucose 252 H Calcium Phosphorus Magnesium Total Creatine Kinase CK-MB (CK-2) C-Reactive Protein Total Protein Albumin Triglycerides 260 H Arterial Blood Glucose 293 H Arterial Blood Ionized Calcium Salicylates Acetaminophen 08/20/20 08/20/20 08/20/20 07:06 07:45 12:20 WBC Hct RDW [place] # (Auto) Seg Neutrophils % Seg Neutrophils # APTT D-Dimer ABG pH POC ABG pO2 ABG pO2 ABG HCO3 ABG Base Excess ABG Hemoglobin ABG Sodium ABG Potassium ABG Chloride ABG Glucose Oxyhemoglobin Sodium Potassium 2.9 L* Chloride Carbon Dioxide BUN Creatinine 0.6 L Glucose 304 H POC Glucose 238 H 303 H Calcium Phosphorus Magnesium Total Creatine Kinase CK-MB (CK-2) C-Reactive Protein Total Protein Albumin Triglycerides Arterial Blood Glucose Arterial Blood Ionized Calcium Salicylates Acetaminophen Allied health notes reviewed: RT
--- NOTE | 2020-08-20 14:45 | Progress Note ---
Assessment and Plan . The high probability of a clinically significant, sudden or life threatening deterioration of the [respiratory, neurologic and immunologic] system(s) required my full and direct attention, intervention and personal management. The aggregate critical care time was [38] minutes. This time is in addition to time spent performing reported procedures but includes the following: [x] Data Review and interpretation [x] Patient assessment and monitoring of vital signs [x] Documentation [x] Medication orders and management Toxic metabolic encephalopathy. Etiology is unknown. 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 Patient started on vancomycin, Rocephin and acyclovir. LP completed by the emergency room physician which was noncontributory Sepsis. Etiology is unknown. Continue IV antibiotics ID consult appreciated Differential diagnosis of pneumonia and discitis Acute hypoxic respiratory failure. Patient will be continued on mechanical ventilation. Pulmonary consulted. Patient currently on sedation with fentanyl drip. Hypertension. Resume antihypertensive medications Diabetes mellitus type 2. Continue Accu-Cheks and sliding scale insulin Hyperlipidemia. Statins. Diabetic foot ulcer. Wound care consultation. Subjective Date of service: 08/20/20 Principal diagnosis: Ac hypoxemic resp failure; Ac encephalopathy (toxic metabolic); Sev. Sepsis Interval history: This is a 55-year-old male with past medical history of tobacco abuse, hypertension, hyperlipidemia diabetes mellitus type 2 and peripheral vascular disease who [place] and noted to have lethargy and hyporesponsiveness. Patient was transferred to our facility and intubated by the ER physician due to airway compromise/airway protection. The patient was noted to have an ABG of pH 7.33/PCO2 36/PO2 105 on room air. The patient had most recent hospitalization June 2020 and treated for chest pain attributed to costochondritis and chronic diastolic heart failure. Also, patient has had multiple peripheral artery procedures most recently 4 months ago and treatment for left diabetic foot ulceration/infection. Patient previously had an x-ray negative for osteomyelitis but did have gas. The patient had a PICC line placed in February and was to receive 3 weeks of vancomycin IV. Patient now presents with as noted above altered mentation and acute hypoxic respiratory failure. No other history is obtained as the patient is intubated on mechanical ventilation. 08/16/2020. Wean sedation of fentanyl as tolerated. Patient currently on AC mode ventilation with rate of 20, tidal volume 450, FiO2 40% and PEEP of 6. Pulmonology following. ID and neurology consultations. 08/17/2020 Patient intubated, weaning in progress. 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 appreciated Objective - Exam Narrative Exam: Patient intubated - Constitutional Vitals: Vital Signs - 12hr 08/20/20 08/20/20 08/20/20 03:00 03:30 04:00 Temperature 99.2 F Pulse Rate 105 H 99 H 91 H Pulse Rate [ 91 H From Monitor] Respiratory 19 20 19 Rate Blood Pressure 101/67 102/70 O2 Sat by Pulse 94 97 95 Oximetry 08/20/20 08/20/20 08/20/20 04:01 04:30 04:39 Temperature Pulse Rate 116 H 106 H 112 H Pulse Rate [ From Monitor] Respiratory 18 22 Rate Blood Pressure 141/102 118/73 118/73 O2 Sat by Pulse 97 96 97 Oximetry 08/20/20 08/20/20 08/20/20 05:00 05:30 06:00 Temperature Pulse Rate 95 H 99 H 99 H Pulse Rate [ From Monitor] Respiratory 21 20 19 Rate Blood Pressure 100/68 110/70 147/83 O2 Sat by Pulse 98 94 97 Oximetry 08/20/20 08/20/20 08/20/20 06:30 07:01 07:30 Temperature Pulse Rate 120 H 122 H 108 H Pulse Rate [ From Monitor] Respiratory 16 26 H 21 Rate Blood Pressure 162/95 138/94 107/77 O2 Sat by Pulse 98 95 97 Oximetry 08/20/20 08/20/20 08/20/20 07:49 07:55 08:00 Temperature 98.2 F Pulse Rate 105 H 97 H 106 H Pulse Rate [ 106 H From Monitor] Respiratory 21 24 Rate Blood Pressure 133/86 118/72 139/82 O2 Sat by Pulse 97 100 96 Oximetry 08/20/20 08/20/20 08/20/20 08:30 09:00 09:30 Temperature Pulse Rate 95 H 107 H 99 H Pulse Rate [ From Monitor] Respiratory 16 18 18 Rate Blood Pressure 102/65 142/79 112/68 O2 Sat by Pulse 100 99 99 Oximetry 08/20/20 08/20/20 08/20/20 10:00 10:30 11:00 Temperature Pulse Rate 104 H 101 H 101 H Pulse Rate [ From Monitor] Respiratory 18 21 20 Rate Blood Pressure 132/71 107/61 127/74 O2 Sat by Pulse 98 99 99 Oximetry 08/20/20 08/20/20 08/20/20 11:30 11:50 12:00 Temperature 100.1 F H Pulse Rate 100 H 103 H 97 H Pulse Rate [ 97 H From Monitor] Respiratory 21 20 21 Rate Blood Pressure 138/73 135/75 119/60 O2 Sat by Pulse 99 99 100 Oximetry 08/20/20 08/20/20 08/20/20 12:30 13:00 13:30 Temperature Pulse Rate 97 H 97 H 99 H Pulse Rate [ From Monitor] Respiratory 20 18 16 Rate Blood Pressure 106/64 112/68 120/79 O2 Sat by Pulse 100 100 99 Oximetry 08/20/20 14:00 Temperature Pulse Rate 101 H Pulse Rate [ From Monitor] Respiratory 22 Rate Blood Pressure 139/79 O2 Sat by Pulse 99 Oximetry General appearance: Present: no acute distress, well-nourished - EENT Eyes: PERRL, EOM intact ENT: hearing intact, clear oral mucosa Ears: bilateral: normal - Neck Neck: supple, normal ROM - Respiratory Respiratory effort: normal Respiratory: bilateral: CTA - Breasts Breasts: normal - Cardiovascular Heart rate: 78 Rhythm: regular Heart Sounds: Present: S1 & S2. Absent: gallop, rub Extremities: pulses intact, No edema, normal color, Full ROM - Gastrointestinal General gastrointestinal: Present: soft, non-tender, non-distended, normal bowel sounds - Genitourinary Male genitourinary: normal - Integumentary Integumentary: clear, warm, dry - Musculoskeletal Musculoskeletal: generalized weakness - Neurologic Neurologic: other (Unresponsive) - Psychiatric Psychiatric: other (Unresponsive) - Allied health notes Allied health notes reviewed: nursing, case management - Labs CBC & Chem 7: 08/24/20 04:19 08/24/20 04:19 Labs: Abnormal lab results 08/19/20 08/19/20 08/20/20 Range/Units 18:01 21:40 05:00 POC ABG pO2 72.1 L (83-108) mmHg ABG Sodium 132.4 L (136.0-145.0) mmol/L ABG Potassium 2.7 L (3.40-4.50) mmol/L ABG Glucose 293 H (65-95) mg/dL Potassium (3.6-5.0) mmol/L Creatinine (0.8-1.3) mg/dL Glucose (75-100) mg/dL POC Glucose 211 H 252 H (70-105) mg/dL Triglycerides (2-149) mg/dL Arterial Blood Glucose 293 H (65-95) mg/dL 08/20/20 08/20/20 08/20/20 Range/Units 05:15 07:06 07:45 POC ABG pO2 (83-108) mmHg ABG Sodium (136.0-145.0) mmol/L ABG Potassium (3.40-4.50) mmol/L ABG Glucose (65-95) mg/dL Potassium 2.9 L* (3.6-5.0) mmol/L Creatinine 0.6 L (0.8-1.3) mg/dL Glucose 304 H (75-100) mg/dL POC Glucose 238 H (70-105) mg/dL Triglycerides 260 H (2-149) mg/dL Arterial Blood Glucose (65-95) mg/dL 08/20/20 Range/Units 12:20 POC ABG pO2 (83-108) mmHg ABG Sodium (136.0-145.0) mmol/L ABG Potassium (3.40-4.50) mmol/L ABG Glucose (65-95) mg/dL Potassium (3.6-5.0) mmol/L Creatinine (0.8-1.3) mg/dL Glucose (75-100) mg/dL POC Glucose 303 H (70-105) mg/dL Triglycerides (2-149) mg/dL Arterial Blood Glucose (65-95) mg/dL HEART Score - HEART Score Troponin: Troponin T < 0.010 ng/mL (0.00-0.029) 08/15/20 06:00
[2020-08-20] MEDS: POTASSIUM CHLORIDE 10 MEQ 10 MEQ/100 ML BAG IV SCH ×4 (14:50→17:38)
[2020-08-20] MEDS ORDERED: POTASSIUM CHLORIDE 20 MEQ PACKET FEEDTUBE ONE ×2 (15:00→18:00)
[2020-08-20] MEDS: LORazepam 2 MG/ML VIAL IV PRN (15:44)
[2020-08-20] MEDS: ENOXAPARIN 40 MG/0.4 ML INJ SUB-Q SCH (21:55)
[2020-08-20] MEDS ORDERED: INSULIN GLARGINE 100 UNITS/ML SUB-Q SCH (22:00)
[2020-08-21] MEDS: INSULIN LISPRO 100 UNIT/ML VIAL 3 mL SUB-Q SCH ×4 (01:24→17:32)
[2020-08-21] MEDS: fentaNYL DRIP Premix 2,000 MCG/100 ML BAG IV SCH ×3 (03:20→17:48)
[2020-08-21 04:35] LABS: ABG Base Excess -1.5 mmol/L (-2.0-3.0); ABG HCO3 22.5 mmol/L (20.0-26.0); ABG Methemoglobin 0.4 % (0.0-1.5); ABG Oxygen Saturation 97.3 % (95.0-99.0); ABG PCO2 35.2 mm Hg; ABG PH 7.424 pH Units (7.350-7.450); ABG PO2 89.9 mm Hg (80.0-90.0)
[2020-08-21 05:17] LABS: Hematocrit 31.3 % (35.5-45.6); Hemoglobin 10.9 gm/dl (11.8-15.2); Mean Corpuscular HGB Conc 35 % (32-34); Mean Corpuscular Volume 89 fl (84-94); Platelet Count 194 K/mm3 (140-440); Red Cell Distribution Width 14.6 % (13.2-15.2)
[2020-08-21 05:31] LABS: Blood Urea Nitrogen 24 mg/dL (9-20); Calcium 9.2 mg/dL (8.4-10.2); Hemolysis Index 15
[2020-08-21 05:32] LABS: BUN/Creatinine Ratio 48
[2020-08-21] MEDS: CEFEPIME/NS 2 GM/100 ML 2 GM/100 ML BAG IV SCH ×3 (05:34→21:15)
[2020-08-21] MEDS: PHENobarbital 20 MG/5 ML ORAL LIQD FEEDTUBE SCH ×3 (05:34→22:11)
[2020-08-21] MEDS ORDERED: POTASSIUM CHLORIDE 20 MEQ PACKET FEEDTUBE SCH (08:00)
[2020-08-21] MEDS: FAMOTIDINE 20 MG TAB PO SCH ×2 (09:48→21:15)
[2020-08-21] MEDS: QUEtiapine 200 MG TAB PO SCH ×2 (09:48→21:15)
[2020-08-21] MEDS: VANCOMYCIN 1,750 MG in SODIUM CHLORIDE 0.9% 500 ML 500 ML IV SCH ×2 (09:48→21:23)
--- NOTE | 2020-08-21 10:51 | Progress Note ---
Assessment and Plan Cultures: 08/15/2020 blood cultures no growth today 08/15/2020 CSF culture no growth today 11/15/2019 urine culture no growth Assessment: 55 years old male with history of diabetes mellitus, hypertension, peripheral vascular disease, alcohol abuse, tobacco abuse, left foot diabetic ulceration with an abscess secondary to MRSA in February 2020, admitted on 08/16/2020 due to altered mental status lethargy unresponsive: #Severe sepsis with septic shock: Off pressors, leukocytosis resolved, noted low-grade fever. Source unclear, possible right elbow infection? vs pneumonia. Chest x-ray possible right lower lobe infiltrate. Urinalysis negative. SARS-CoV-2 PCR negative. Patient underwent lumbar puncture in the emergency room, ED provider kindly contacted me with results -WBCs 10, RBCs 381. This is not consistent with meningitis. Procalcitonin normal. #Possible pneumonia: Repeat CXR mild infiltrates. Sputum culture grew MSSA ? colonizer (no wbc in resp specimen) #Acute hypoxemic respiratory failure: Patient intubated #Right elbow ulcer abscess / sinus tract: Likely infected ? exposed joint. Elbow x-ray reading pending. CRP 2.7. #Acute encephalopathy: Likely secondary to sepsis versus metabolic. ?drugs. 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 CSF with no pleocytosis but high protein. #Peripheral vascular disease: Very cold feet bilaterally. Arterial Doppler without any evidence of PAD?. Previous arterial Doppler abnormal. #Multiple skin tears in left hand and left lower extremities: Likely secondary to peripheral vascular disease Recommendations: -Orthopedics evaluation of the right elbow deep wound ? Exposed joint ? r/o septic joint ?elbow MRI -consider left elbow MRI vs CT when stable -Continue vancomycin with PK consult - day 6 of 7 to cover pneumonia and possible elbow wound infection -Continue cefepime IV 2 g every 8 hours - day 6 of 7 to cover pneumonia and possible elbow wound infection -If there is evidence of elbow septic join then IV abx should be extended -Wound care consultation Will follow. Pastora Gongora MD Infectious Diseases [employer] [employer] [facility] M [phone] O [phone] Subjective Date of service: 08/21/20 Principal diagnosis: Sepsis Interval history: Patient remains intubated, temperature 100.5 Objective - Exam Narrative Exam: General appearance: Sedated in no acute distress intubated Eyes: anicteric sclerae, moist conjunctivae; no lid-lag; PERRLA HENT: Atraumatic; oropharynx clear limited endotracheal tube in place Lungs: Clear to auscultation bilaterally CV: RRR no murmur Abdomen: Soft, non-tender; no masses or hepatosplenomegaly Extremities: Left foot partial amputation healed. Right elbow with an open wound, deep cord with the residents Skin: Multiple lower extremity skin tear. Psych: Sedated Neuro: Sedated - - Constitutional Vitals: Vital Signs Temp Pulse Resp BP Pulse Ox 99.1 F 89 13 118/71 97 08/21/20 08:00 08/21/20 10:00 08/21/20 10:00 08/21/20 10:00 08/21/20 10:00 Temperature -Last 24 Hours Temperature 99.1 F Temperature 99.1 F Temperature 99.9 F Temperature 99.8 F Temperature 100.5 F Temperature 100.1 F - Labs CBC & Chem 7: 08/21/20 04:05 08/21/20 04:05 Labs: Abnormal lab results 08/20/20 08/20/20 08/20/20 Range/Units 07:45 12:20 17:49 RBC (3.65-5.03) M/mm3 Hgb (11.8-15.2) gm/dl Hct (35.5-45.6) % MCHC (32-34) % ABG Hemoglobin (14.0-18.0) gm/dl Potassium 2.9 L* (3.6-5.0) mmol/L BUN (9-20) mg/dL Creatinine 0.6 L (0.8-1.3) mg/dL Glucose 304 H (75-100) mg/dL POC Glucose 303 H 302 H (70-105) mg/dL 08/21/20 08/21/20 08/21/20 Range/Units 00:18 04:05 04:05 RBC 3.50 L (3.65-5.03) M/mm3 Hgb 10.9 L (11.8-15.2) gm/dl Hct 31.3 L (35.5-45.6) % MCHC 35 H (32-34) % ABG Hemoglobin (14.0-18.0) gm/dl Potassium 3.5 L D (3.6-5.0) mmol/L BUN 24 H (9-20) mg/dL Creatinine 0.5 L (0.8-1.3) mg/dL Glucose 274 H (75-100) mg/dL POC Glucose 254 H (70-105) mg/dL 08/21/20 08/21/20 Range/Units 04:22 05:13 RBC (3.65-5.03) M/mm3 Hgb (11.8-15.2) gm/dl Hct (35.5-45.6) % MCHC (32-34) % ABG Hemoglobin 10.9 L (14.0-18.0) gm/dl Potassium (3.6-5.0) mmol/L BUN (9-20) mg/dL Creatinine (0.8-1.3) mg/dL Glucose (75-100) mg/dL POC Glucose 240 H (70-105) mg/dL
--- NOTE | 2020-08-21 12:39 | Progress Note ---
Assessment and Plan Acute hypoxemic respiratory failure on MVS Acute encephalopathy, presumably toxic metabolic. Severe sepsis with shock. History of diabetes. History of a cerebrovascular accident with persistent left hemiparesis. History of alcohol abuse. Hypertension. Chronic pain syndrome. History of deep venous thrombosis. - increased Lantus to 20 units - 4 gms Magnesium Sulfate IV X 1 - rest on AC qhs for now - continue care as below otherwise; - continue to wean supplemental oxygen for target O2 sat's > 92% acutely - VAP bundle addressed - continue lung protective strategies - continue bronchodilators with pulmonary hygiene per RT - wean per pulmonary driven protocols otherwise - Daily SAT and SBT assessment as tolerated - accuchecks with glycemic control per SSI (While critically ill target blood glucose of 140-180 mg/dL; avoid hypoglycemia) - sedation prn for target RASS 0 to -1 - avoid nephrotoxins, renally dose all medications - completed AB's per ID rec's - prn analgesia per CPOT score - Maintenance of sleep-wake cycle, avoid delirium - continue enteral nutritional support at goal rate as tolerated - G.I. & VTE prophylaxis - PT/OT/ROM exercises - continue mobility protocols for pressure ulcer prophylaxis - Monitor hemodynamics closely - continue other care per attending / other consultants - discharge planning ongoing concurrently .... Re-evaluate in am & prn CONDITION: CRITICAL PROGNOSIS: GUARDED CODE STATUS: FULL CODE The high probability of a clinically significant, sudden or life-threatening deterioration of the [respiratory, cardiovascular & neurologic] system(s) required my full and direct attention, intervention and personal management. The aggregate critical care time was [34] minutes without overlap. Time includes spent on; [x] Data Review and interpretation [x] Patient assessment and monitoring of vital signs [x] Documentation [x] Medication orders and management Subjective Date of service: 08/21/20 Principal diagnosis: Ac hypoxemic resp failure; Ac encephalopathy (toxic metabolic); Sev. Sepsis Interval history: Patient is seen today for: Acute hypoxemic respiratory failure; Acute encephalopathy (toxic metabolic); Severe sepsis with shock; DM II; CVA; alcohol abuse; HTN; DVT Seen and examined at bedside; 24hour events reviewed; nursing and respiratory care staff consulted; no adverse overnight events reported to me; resting in bed; AMS is persistent; agitated during sedation vacation; tolerating SBT today; no emesis or overt aspiration; low grade fever earlier responded to tylenol; sugars running high Objective Vital Signs - 12hr 08/21/20 08/21/20 08/21/20 01:00 01:30 02:00 Temperature Pulse Rate 82 85 87 Pulse Rate [ From Monitor] Respiratory 19 19 18 Rate Blood Pressure 108/56 126/64 125/66 O2 Sat by Pulse 99 99 98 Oximetry 08/21/20 08/21/20 08/21/20 02:30 03:00 03:30 Temperature Pulse Rate 85 79 89 Pulse Rate [ From Monitor] Respiratory 17 20 20 Rate Blood Pressure 124/69 102/64 124/77 O2 Sat by Pulse 98 97 99 Oximetry 08/21/20 08/21/20 08/21/20 03:54 04:00 04:30 Temperature 99.1 F Pulse Rate 87 90 87 Pulse Rate [ 90 From Monitor] Respiratory 18 18 Rate Blood Pressure 131/75 120/84 117/75 O2 Sat by Pulse 99 99 98 Oximetry 08/21/20 08/21/20 08/21/20 05:01 05:30 06:00 Temperature Pulse Rate 101 H 94 H 86 Pulse Rate [ From Monitor] Respiratory 16 20 19 Rate Blood Pressure 167/106 143/93 136/79 O2 Sat by Pulse 99 99 99 Oximetry 08/21/20 08/21/20 08/21/20 06:30 07:00 07:30 Temperature Pulse Rate 81 78 74 Pulse Rate [ From Monitor] Respiratory 18 19 20 Rate Blood Pressure 104/65 104/62 100/56 O2 Sat by Pulse 100 98 99 Oximetry 08/21/20 08/21/20 08/21/20 08:00 08:05 08:15 Temperature 99.1 F Pulse Rate 81 74 89 Pulse Rate [ From Monitor] Respiratory 19 10 L Rate Blood Pressure 105/60 105/60 110/94 O2 Sat by Pulse 98 99 98 Oximetry 08/21/20 08/21/20 08/21/20 08:30 09:00 09:30 Temperature Pulse Rate 80 93 H 90 Pulse Rate [ 80 From Monitor] Respiratory 19 15 18 Rate Blood Pressure 113/67 168/89 146/91 O2 Sat by Pulse 98 99 99 Oximetry 08/21/20 10:00 Temperature Pulse Rate 89 Pulse Rate [ From Monitor] Respiratory 13 Rate Blood Pressure 118/71 O2 Sat by Pulse 97 Oximetry Constitutional: no acute distress, other (middle aged male with mildly increased respiratory effort at rest on MVS) Eyes: non-icteric ENT: oropharynx moist, other (ETT 23 cm [place]) Effort: mildly labored Ascultation: Bilateral: rhonchi Percussion: Bilateral: not dull Cardiovascular: regular rate and rhythm Gastrointestinal: normoactive bowel sounds, soft, non-tender, non-distended (protuberant) Integumentary: normal Extremities: no cyanosis, no edema, pink and warm, pulses normal, no ischemia or petechiae Neurologic: non-focal exam (grossly), pupils equal and round, unable to assess Psychiatric: other (unable to assess re: AMS) CBC and BMP: 08/21/20 04:05 08/21/20 04:05 ABG, PT/INR, D-dimer: ABG ABG pH 7.424 pH Units (7.350-7.450) 08/21/20 04:22 POC ABG pCO2 35.2 mmHg (32.0-48.0) 08/20/20 05:00 ABG pCO2 35.2 mm Hg 08/21/20 04:22 POC ABG pO2 72.1 mmHg (83-108) L 08/20/20 05:00 ABG pO2 89.9 mm Hg (80.0-90.0) 08/21/20 04:22 POC ABG HCO3 22.6 08/20/20 05:00 ABG O2 Saturation 97.3 % (95.0-99.0) 08/21/20 04:22 PT/INR, D-dimer PT 13.9 Sec. (12.2-14.9) 08/16/20 Unknown INR 1.06 (0.87-1.13) 08/16/20 Unknown D-Dimer 882.17 ng/mlDDU (0-234) H 08/16/20 14:45 D-Dimer 925.88 ng/mlDDU (0-234) H 08/16/20 14:45 Abnormal lab findings: Abnormal Labs 08/15/20 08/15/20 08/15/20 06:00 07:32 07:32 WBC RBC Hgb Hct MCHC RDW [place] # (Auto) Seg Neutrophils % Seg Neutrophils # APTT D-Dimer ABG pH POC ABG pO2 ABG pO2 ABG HCO3 ABG Base Excess ABG Hemoglobin ABG Sodium ABG Potassium ABG Chloride ABG Glucose Oxyhemoglobin Sodium 132 L Potassium Chloride 94.3 L Carbon Dioxide 19 L BUN 45 H Creatinine 1.6 H Glucose 285 H POC Glucose Calcium 10.4 H Phosphorus Magnesium Total Creatine Kinase 446 H CK-MB (CK-2) 8.8 H C-Reactive Protein Total Protein Albumin 3.7 L Triglycerides Arterial Blood Glucose Arterial Blood Ionized Calcium Salicylates < 0.3 L Acetaminophen < 5.0 L 08/15/20 08/15/20 08/16/20 10:45 21:10 04:30 WBC RBC Hgb Hct MCHC RDW [place] # (Auto) Seg Neutrophils % Seg Neutrophils # APTT D-Dimer ABG pH 7.338 L 7.345 L POC ABG pO2 ABG pO2 105.9 H 134.5 H ABG HCO3 19.2 L ABG Base Excess -5.9 L -5.2 L ABG Hemoglobin 12.3 L 12.1 L ABG Sodium ABG Potassium ABG Chloride ABG Glucose Oxyhemoglobin Sodium Potassium Chloride Carbon Dioxide BUN Creatinine Glucose 297 H POC Glucose Calcium Phosphorus Magnesium Total Creatine Kinase CK-MB (CK-2) C-Reactive Protein Total Protein Albumin Triglycerides Arterial Blood Glucose Arterial Blood Ionized Calcium Salicylates Acetaminophen 08/16/20 08/16/20 08/16/20 08:59 14:45 14:45 WBC RBC Hgb Hct 35.3 L MCHC RDW 15.7 H [place] # (Auto) Seg Neutrophils % Seg Neutrophils # APTT D-Dimer ABG pH POC ABG pO2 ABG pO2 ABG HCO3 ABG Base Excess ABG Hemoglobin ABG Sodium ABG Potassium ABG Chloride ABG Glucose Oxyhemoglobin Sodium Potassium 3.4 L Chloride 109.0 H Carbon Dioxide BUN 32 H Creatinine Glucose 186 H POC Glucose Calcium Phosphorus 1.50 L Magnesium 1.60 L Total Creatine Kinase CK-MB (CK-2) C-Reactive Protein Total Protein 6.0 L Albumin 3.1 L Triglycerides Arterial Blood Glucose Arterial Blood Ionized Calcium Salicylates Acetaminophen 08/16/20 08/16/20 08/16/20 14:45 14:45 14:45 WBC RBC Hgb Hct MCHC RDW [place] # (Auto) Seg Neutrophils % Seg Neutrophils # APTT D-Dimer 925.88 H 882.17 H ABG pH POC ABG pO2 ABG pO2 ABG HCO3 ABG Base Excess ABG Hemoglobin ABG Sodium ABG Potassium ABG Chloride ABG Glucose Oxyhemoglobin Sodium Potassium Chloride Carbon Dioxide BUN Creatinine Glucose POC Glucose Calcium Phosphorus Magnesium Total Creatine Kinase CK-MB (CK-2) C-Reactive Protein 2.70 H Total Protein Albumin Triglycerides Arterial Blood Glucose Arterial Blood Ionized Calcium Salicylates Acetaminophen 08/16/20 08/16/20 08/16/20 17:42 Unknown Unknown WBC 16.7 H RBC Hgb Hct MCHC RDW [place] # (Auto) 1.0 H Seg Neutrophils % 79.9 H Seg Neutrophils # 13.4 H APTT 23.9 L D-Dimer ABG pH POC ABG pO2 ABG pO2 ABG HCO3 ABG Base Excess ABG Hemoglobin ABG Sodium ABG Potassium ABG Chloride ABG Glucose Oxyhemoglobin Sodium Potassium Chloride Carbon Dioxide BUN Creatinine Glucose POC Glucose 169 H Calcium Phosphorus Magnesium Total Creatine Kinase CK-MB (CK-2) C-Reactive Protein Total Protein Albumin Triglycerides Arterial Blood Glucose Arterial Blood Ionized Calcium Salicylates Acetaminophen 08/16/20 08/17/20 08/17/20 Unknown 00:06 03:40 WBC RBC Hgb Hct MCHC RDW [place] # (Auto) Seg Neutrophils % Seg Neutrophils # APTT D-Dimer ABG pH POC ABG pO2 60.8 L ABG pO2 ABG HCO3 ABG Base Excess ABG Hemoglobin ABG Sodium ABG Potassium ABG Chloride 115.0 H ABG Glucose 139 H Oxyhemoglobin Sodium Potassium Chloride Carbon Dioxide 17 L BUN 33 H Creatinine Glucose 233 H POC Glucose 125 H Calcium Phosphorus Magnesium Total Creatine Kinase CK-MB (CK-2) C-Reactive Protein Total Protein Albumin Triglycerides Arterial Blood Glucose 139 H Arterial Blood Ionized Calcium 5.5 H Salicylates Acetaminophen 08/17/20 08/17/20 08/17/20 05:52 12:30 17:47 WBC RBC Hgb Hct MCHC RDW [place] # (Auto) Seg Neutrophils % Seg Neutrophils # APTT D-Dimer ABG pH POC ABG pO2 ABG pO2 ABG HCO3 ABG Base Excess ABG Hemoglobin ABG Sodium ABG Potassium ABG Chloride ABG Glucose Oxyhemoglobin Sodium Potassium Chloride Carbon Dioxide BUN Creatinine Glucose POC Glucose 139 H 133 H 157 H Calcium Phosphorus Magnesium Total Creatine Kinase CK-MB (CK-2) C-Reactive Protein Total Protein Albumin Triglycerides Arterial Blood Glucose Arterial Blood Ionized Calcium Salicylates Acetaminophen 08/18/20 08/18/20 08/18/20 00:08 04:00 05:31 WBC RBC Hgb Hct MCHC RDW [place] # (Auto) Seg Neutrophils % Seg Neutrophils # APTT D-Dimer ABG pH 7.315 L POC ABG pO2 ABG pO2 75.1 L ABG HCO3 ABG Base Excess -4.3 L ABG Hemoglobin 11.9 L ABG Sodium ABG Potassium ABG Chloride ABG Glucose Oxyhemoglobin 93.7 L Sodium Potassium Chloride Carbon Dioxide BUN Creatinine Glucose POC Glucose 129 H 114 H Calcium Phosphorus Magnesium Total Creatine Kinase CK-MB (CK-2) C-Reactive Protein Total Protein Albumin Triglycerides Arterial Blood Glucose Arterial Blood Ionized Calcium Salicylates Acetaminophen 08/18/20 08/19/20 08/19/20 12:26 00:02 04:19 WBC RBC Hgb Hct MCHC RDW [place] # (Auto) Seg Neutrophils % Seg Neutrophils # APTT D-Dimer ABG pH 7.451 H POC ABG pO2 172.9 H ABG pO2 ABG HCO3 ABG Base Excess ABG Hemoglobin ABG Sodium ABG Potassium ABG Chloride ABG Glucose Oxyhemoglobin Sodium Potassium Chloride Carbon Dioxide BUN Creatinine Glucose POC Glucose 112 H 107 H Calcium Phosphorus Magnesium Total Creatine Kinase CK-MB (CK-2) C-Reactive Protein Total Protein Albumin Triglycerides Arterial Blood Glucose Arterial Blood Ionized Calcium Salicylates Acetaminophen 08/19/20 08/19/20 08/19/20 05:34 12:48 18:01 WBC RBC Hgb Hct MCHC RDW [place] # (Auto) Seg Neutrophils % Seg Neutrophils # APTT D-Dimer ABG pH POC ABG pO2 ABG pO2 ABG HCO3 ABG Base Excess ABG Hemoglobin ABG Sodium ABG Potassium ABG Chloride ABG Glucose Oxyhemoglobin Sodium Potassium Chloride Carbon Dioxide BUN Creatinine Glucose POC Glucose 114 H 198 H 211 H Calcium Phosphorus Magnesium Total Creatine Kinase CK-MB (CK-2) C-Reactive Protein Total Protein Albumin Triglycerides Arterial Blood Glucose Arterial Blood Ionized Calcium Salicylates Acetaminophen 08/19/20 08/20/20 08/20/20 21:40 05:00 05:15 WBC RBC Hgb Hct MCHC RDW [place] # (Auto) Seg Neutrophils % Seg Neutrophils # APTT D-Dimer ABG pH POC ABG pO2 72.1 L ABG pO2 ABG HCO3 ABG Base Excess ABG Hemoglobin ABG Sodium 132.4 L ABG Potassium 2.7 L ABG Chloride ABG Glucose 293 H Oxyhemoglobin Sodium Potassium Chloride Carbon Dioxide BUN Creatinine Glucose POC Glucose 252 H Calcium Phosphorus Magnesium Total Creatine Kinase CK-MB (CK-2) C-Reactive Protein Total Protein Albumin Triglycerides 260 H Arterial Blood Glucose 293 H Arterial Blood Ionized Calcium Salicylates Acetaminophen 08/20/20 08/20/20 08/20/20 07:06 07:45 12:20 WBC RBC Hgb Hct MCHC RDW [place] # (Auto) Seg Neutrophils % Seg Neutrophils # APTT D-Dimer ABG pH POC ABG pO2 ABG pO2 ABG HCO3 ABG Base Excess ABG Hemoglobin ABG Sodium ABG Potassium ABG Chloride ABG Glucose Oxyhemoglobin Sodium Potassium 2.9 L* Chloride Carbon Dioxide BUN Creatinine 0.6 L Glucose 304 H POC Glucose 238 H 303 H Calcium Phosphorus Magnesium Total Creatine Kinase CK-MB (CK-2) C-Reactive Protein Total Protein Albumin Triglycerides Arterial Blood Glucose Arterial Blood Ionized Calcium Salicylates Acetaminophen 08/20/20 08/21/20 08/21/20 17:49 00:18 04:05 WBC RBC 3.50 L Hgb 10.9 L Hct 31.3 L MCHC 35 H RDW [place] # (Auto) Seg Neutrophils % Seg Neutrophils # APTT D-Dimer ABG pH POC ABG pO2 ABG pO2 ABG HCO3 ABG Base Excess ABG Hemoglobin ABG Sodium ABG Potassium ABG Chloride ABG Glucose Oxyhemoglobin Sodium Potassium Chloride Carbon Dioxide BUN Creatinine Glucose POC Glucose 302 H 254 H Calcium Phosphorus Magnesium Total Creatine Kinase CK-MB (CK-2) C-Reactive Protein Total Protein Albumin Triglycerides Arterial Blood Glucose Arterial Blood Ionized Calcium Salicylates Acetaminophen 08/21/20 08/21/20 08/21/20 04:05 04:22 05:13 WBC RBC Hgb Hct MCHC RDW [place] # (Auto) Seg Neutrophils % Seg Neutrophils # APTT D-Dimer ABG pH POC ABG pO2 ABG pO2 ABG HCO3 ABG Base Excess ABG Hemoglobin 10.9 L ABG Sodium ABG Potassium ABG Chloride ABG Glucose Oxyhemoglobin Sodium Potassium 3.5 L D Chloride Carbon Dioxide BUN 24 H Creatinine 0.5 L Glucose 274 H POC Glucose 240 H Calcium Phosphorus Magnesium Total Creatine Kinase CK-MB (CK-2) C-Reactive Protein Total Protein Albumin Triglycerides Arterial Blood Glucose Arterial Blood Ionized Calcium Salicylates Acetaminophen 11/02/20 11/02/20 11:30 Unknown WBC RBC Hgb Hct MCHC RDW [place] # (Auto) Seg Neutrophils % Seg Neutrophils # APTT D-Dimer ABG pH POC ABG pO2 ABG pO2 ABG HCO3 ABG Base Excess ABG Hemoglobin ABG Sodium ABG Potassium ABG Chloride ABG Glucose Oxyhemoglobin Sodium Potassium Chloride Carbon Dioxide BUN Creatinine Glucose POC Glucose 296 H Calcium Phosphorus Magnesium 1.30 L Total Creatine Kinase CK-MB (CK-2) C-Reactive Protein Total Protein Albumin Triglycerides Arterial Blood Glucose Arterial Blood Ionized Calcium Salicylates Acetaminophen Chest x-ray: pending Allied health notes reviewed: nursing
[2020-08-21] MEDS ORDERED: INSULIN GLARGINE 100 UNITS/ML SUB-Q ONE (14:00)
[2020-08-21] MEDS ORDERED: MAGNESIUM SULFATE 4 GM/100 ML BAG IV ONE (14:00)
[2020-08-21] MEDS: LORazepam 2 MG/ML VIAL IV PRN (14:05)
--- NOTE | 2020-08-21 18:53 | Progress Note ---
Assessment and Plan Toxic metabolic encephalopathy. Etiology is unknown. 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 Patient started on vancomycin, Rocephin and acyclovir. LP completed by the emergency room physician and await studies. ID and neurology consultations. Sepsis. Etiology is unknown. Continue IV antibiotics ID consult appreciated Acute hypoxic respiratory failure. Patient will be continued on mechanical ventilation. Pulmonary consulted. Patient currently on sedation with fentanyl drip. Hypertension. Resume antihypertensive medications Diabetes mellitus type 2. Continue Accu-Cheks and sliding scale insulin Hyperlipidemia. Statins. Diabetic foot ulcer. Wound care consultation. 08/16/2020. Wean sedation of fentanyl as tolerated. Patient currently on AC mode ventilation with rate of 20, tidal volume 450, FiO2 40% and PEEP of 6. Pulmonology following. ID and neurology consultations. 08/17/2020 Patient intubated, weaning in progress. The high probability of a clinically significant, sudden or life threatening deterioration of the [respiratory, neurologic and immunologic] system(s) required my full and direct attention, intervention and personal management. The aggregate critical care time was [38] minutes. This time is in addition to time spent performing reported procedures but includes the following: [x] Data Review and interpretation [x] Patient assessment and monitoring of vital signs [x] Documentation [x] Medication orders and management Subjective Date of service: 08/21/20 Principal diagnosis: Ac hypoxemic resp failure; Ac encephalopathy (toxic metabolic); Sev. Sepsis Interval history: This is a 55-year-old male with past medical history of tobacco abuse, hyp ertension, hyperlipidemia diabetes mellitus type 2 and peripheral vascular disease who [place] and noted to have lethargy and hyporesponsiveness. Patient was transferred to our facility and intubated by the ER physician due to airway compromise/airway protection. The patient was noted to have an ABG of pH 7.33/PCO2 36/PO2 105 on room air. The patient had most recent hospitalization June 2020 and treated for chest pain attributed to costochondritis and chronic diastolic heart failure. Also, patient has had multiple peripheral artery procedures most recently 4 months ago and treatment for left diabetic foot ulceration/infection. Patient previously had an x-ray negative for osteomyelitis but did have gas. The patient had a PICC line placed in February and was to receive 3 weeks of vancomycin IV. Patient now presents with as noted above altered mentation and acute hypoxic respiratory failure. No other history is obtained as the patient is intubated on mechanical ventilation. 08/16/2020. Wean sedation of fentanyl as tolerated. Patient currently on AC mode ventilation with rate of 20, tidal volume 450, FiO2 40% and PEEP of 6. Pulmonology following. ID and neurology consultations. 08/17/2020 Patient intubated, weaning in progress. 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 and telecom field technician consult appreciated 08/20/2020 Unresponsive Weaning in progress Objective - Exam Narrative Exam: Patient intubated - Constitutional Vitals: Vital Signs - 12hr 08/21/20 08/21/20 08/21/20 07:00 07:30 08:00 Temperature 99.1 F Pulse Rate 78 74 81 Pulse Rate [ From Monitor] Respiratory 19 20 19 Rate Blood Pressure 104/62 100/56 105/60 O2 Sat by Pulse 98 99 98 Oximetry 08/21/20 08/21/20 08/21/20 08:05 08:15 08:30 Temperature Pulse Rate 74 89 80 Pulse Rate [ 80 From Monitor] Respiratory 10 L 19 Rate Blood Pressure 105/60 110/94 113/67 O2 Sat by Pulse 99 98 98 Oximetry 08/21/20 08/21/20 08/21/20 09:00 09:30 10:00 Temperature Pulse Rate 93 H 90 89 Pulse Rate [ From Monitor] Respiratory 15 18 13 Rate Blood Pressure 168/89 146/91 118/71 O2 Sat by Pulse 99 99 97 Oximetry 08/21/20 08/21/20 08/21/20 10:30 11:00 11:30 Temperature Pulse Rate 90 93 H 93 H Pulse Rate [ From Monitor] Respiratory 10 L 13 13 Rate Blood Pressure 110/74 130/83 137/78 O2 Sat by Pulse 98 99 99 Oximetry 08/21/20 08/21/20 08/21/20 12:00 12:10 12:30 Temperature 98.4 F Pulse Rate 86 82 82 Pulse Rate [ 86 From Monitor] Respiratory 13 12 11 L Rate Blood Pressure 125/77 130/78 126/73 O2 Sat by Pulse 100 100 100 Oximetry 08/21/20 08/21/20 08/21/20 13:00 13:30 14:01 Temperature Pulse Rate 105 H 86 96 H Pulse Rate [ From Monitor] Respiratory 20 16 14 Rate Blood Pressure 120/97 127/76 127/76 O2 Sat by Pulse 97 93 96 Oximetry 08/21/20 08/21/20 08/21/20 14:30 15:00 15:30 Temperature Pulse Rate 88 88 90 Pulse Rate [ From Monitor] Respiratory 14 12 12 Rate Blood Pressure 128/76 133/79 138/81 O2 Sat by Pulse 98 99 99 Oximetry 08/21/20 08/21/20 08/21/20 15:50 16:00 16:01 Temperature 98.4 F Pulse Rate 91 H 90 101 H Pulse Rate [ 101 H From Monitor] Respiratory 20 20 Rate Blood Pressure 133/79 160/82 O2 Sat by Pulse 98 100 100 Oximetry 08/21/20 08/21/20 08/21/20 16:30 17:00 17:30 Temperature Pulse Rate 88 90 93 H Pulse Rate [ From Monitor] Respiratory 13 10 L 11 L Rate Blood Pressure 122/71 121/76 175/82 O2 Sat by Pulse 100 100 100 Oximetry 08/21/20 18:00 Temperature Pulse Rate 89 Pulse Rate [ From Monitor] Respiratory 10 L Rate Blood Pressure 135/73 O2 Sat by Pulse 100 Oximetry General appearance: Present: no acute distress, well-nourished - EENT Eyes: PERRL, EOM intact ENT: hearing intact, clear oral mucosa Ears: bilateral: normal - Neck Neck: supple, normal ROM - Respiratory Respiratory effort: normal Respiratory: bilateral: CTA - Breasts Breasts: normal - Cardiovascular Rhythm: regular Heart Sounds: Present: S1 & S2. Absent: gallop, rub Extremities: pulses intact, No edema, normal color, Full ROM - Gastrointestinal General gastrointestinal: Present: soft, non-tender, non-distended, normal bowel sounds - Genitourinary Male genitourinary: normal - Integumentary Integumentary: clear, warm, dry - Musculoskeletal Musculoskeletal: 1, strength equal bilaterally - Neurologic Neurologic: moves all extremities - Psychiatric Psychiatric: memory intact, appropriate mood/affect, intact judgment & insight - Labs CBC & Chem 7: 08/24/20 04:19 08/24/20 04:19 Labs: Abnormal lab results 08/21/20 08/21/20 08/21/20 Range/Units 00:18 04:05 04:05 RBC 3.50 L (3.65-5.03) M/mm3 Hgb 10.9 L (11.8-15.2) gm/dl Hct 31.3 L (35.5-45.6) % MCHC 35 H (32-34) % ABG Hemoglobin (14.0-18.0) gm/dl Potassium 3.5 L D (3.6-5.0) mmol/L BUN 24 H (9-20) mg/dL Creatinine 0.5 L (0.8-1.3) mg/dL Glucose 274 H (75-100) mg/dL POC Glucose 254 H (70-105) mg/dL Magnesium (1.7-2.3) mg/dL 08/21/20 08/21/20 08/21/20 Range/Units 04:22 05:13 11:30 RBC (3.65-5.03) M/mm3 Hgb (11.8-15.2) gm/dl Hct (35.5-45.6) % MCHC (32-34) % ABG Hemoglobin 10.9 L (14.0-18.0) gm/dl Potassium (3.6-5.0) mmol/L BUN (9-20) mg/dL Creatinine (0.8-1.3) mg/dL Glucose (75-100) mg/dL POC Glucose 240 H 296 H (70-105) mg/dL Magnesium (1.7-2.3) mg/dL 08/21/20 08/21/20 Range/Units 17:37 Unknown RBC (3.65-5.03) M/mm3 Hgb (11.8-15.2) gm/dl Hct (35.5-45.6) % MCHC (32-34) % ABG Hemoglobin (14.0-18.0) gm/dl Potassium (3.6-5.0) mmol/L BUN (9-20) mg/dL Creatinine (0.8-1.3) mg/dL Glucose (75-100) mg/dL POC Glucose 272 H (70-105) mg/dL Magnesium 1.30 L (1.7-2.3) mg/dL HEART Score - HEART Score Troponin: Troponin T < 0.010 ng/mL (0.00-0.029) 08/15/20 06:00
[2020-08-21] MEDS: ENOXAPARIN 40 MG/0.4 ML INJ SUB-Q SCH (21:14)
[2020-08-21] MEDS ORDERED: INSULIN GLARGINE 100 UNITS/ML SUB-Q SCH (22:00)
[2020-08-22] MEDS: INSULIN LISPRO 100 UNIT/ML VIAL 3 mL SUB-Q SCH ×5 (00:25→18:01)
[2020-08-22] MEDS: fentaNYL DRIP Premix 2,000 MCG/100 ML BAG IV SCH ×5 (02:47→21:20)
[2020-08-22] MEDS: LORazepam 2 MG/ML VIAL IV PRN (03:40)
[2020-08-22] MEDS ORDERED: SUCCINYLCHOLINE CHLORIDE 200 MG/10 ML INJ MDV ONE (04:06)
[2020-08-22] MEDS ORDERED: ETOMIDATE 20 MG/10 ML INJ IV ONE (04:07)
[2020-08-22 04:43] LABS: Hematocrit 33.1 % (35.5-45.6); Hemoglobin 11.2 gm/dl (11.8-15.2); Mean Corpuscular HGB Conc 34 % (32-34); Mean Corpuscular Volume 91 fl (84-94); Platelet Count 186 K/mm3 (140-440); Red Blood Count 3.65 M/mm3 (3.65-5.03); Red Cell Distribution Width 14.9 % (13.2-15.2)
[2020-08-22 05:04] LABS: Blood Urea Nitrogen 23 mg/dL (9-20); Hemolysis Index 0
[2020-08-22 05:06] LABS: BUN/Creatinine Ratio 46
[2020-08-22] MEDS: PHENobarbital 20 MG/5 ML ORAL LIQD FEEDTUBE SCH ×3 (05:10→21:42)
[2020-08-22] MEDS: CEFEPIME/NS 2 GM/100 ML 2 GM/100 ML BAG IV SCH ×3 (05:10→21:42)
--- NOTE | 2020-08-22 05:11 | XRay Report ---
CHEST 1 VIEW INDICATION / CLINICAL INFORMATION: ET placement. Dyspnea FINDINGS: SUPPORT DEVICES: The endotracheal tube terminates about 2 cm above the felisha. The esophagogastric tu be terminates in the region of the stomach. HEART / MEDIASTINUM: No significant abnormality. LUNGS / PLEURA: There are ill-defined bilateral airspace disease with low lung volumes. Signer Name: Carlos Barbosa MD Signed: 08/22/2020 5:07 AM Workstation Name: [id number]
--- NOTE | 2020-08-22 08:02 | Progress Note ---
Assessment and Plan Acute hypoxemic respiratory failure on MVS Acute encephalopathy, presumably toxic metabolic. Severe sepsis with shock. History of diabetes. History of a cerebrovascular accident with persistent left hemiparesis. History of alcohol abuse. Hypertension. Chronic pain syndrome. History of deep venous thrombosis. - continue daily SAT and SBT assessment as tolerated - optimize Mg & PO4 levels - rest on AC qhs for now - continue care as below otherwise; - continue to wean supplemental oxygen for target O2 sat's > 92% acutely - VAP bundle addressed - continue lung protective strategies - continue bronchodilators with pulmonary hygiene per RT - wean per pulmonary driven protocols otherwise - accuchecks with glycemic control per SSI (While critically ill target blood glucose of 140-180 mg/dL; avoid hypoglycemia) - sedation prn for target RASS 0 to -1 - avoid nephrotoxins, renally dose all medications - completed AB's per ID rec's - prn analgesia per CPOT score - Maintenance of sleep-wake cycle, avoid delirium - continue enteral nutritional support at goal rate as tolerated - G.I. & VTE prophylaxis - PT/OT/ROM exercises - continue mobility protocols for pressure ulcer prophylaxis - Monitor hemodynamics closely - continue other care per attending / other consultants - discharge planning ongoing concurrently .... Re-evaluate in am & prn CONDITION: CRITICAL PROGNOSIS: GUARDED CODE STATUS: FULL CODE The high probability of a clinically significant, sudden or life-threatening deterioration of the [respiratory, cardiovascular & neurologic] system(s) required my full and direct attention, intervention and personal management. The aggregate critical care time was [35] minutes without overlap. Time includes s pent on; [x] Data Review and interpretation [x] Patient assessment and monitoring of vital signs [x] Documentation [x] Medication orders and management Subjective Date of service: 08/22/20 Principal diagnosis: Ac hypoxemic resp failure; Ac encephalopathy (toxic metabolic); Sev. Sepsis Interval history: Patient is seen today for: Acute hypoxemic respiratory failure; Acute e ncephalopathy (toxic metabolic); Severe sepsis with shock; DM II; CVA; alcohol abuse; HTN; DVT Seen and examined at bedside; 24hour events reviewed; nursing and respiratory care staff consulted; no adverse overnight events reported to me; resting in bed; AMS is persistent; remains on full support and failed SBT; no emesis or overt aspiration Objective Vital Signs - 12hr 11/02/20 11/02/20 11/02/20 20:08 20:30 21:00 Temperature Pulse Rate 83 78 81 Pulse Rate [ From Monitor] Respiratory 20 21 Rate Blood Pressure 128/86 128/86 119/69 O2 Sat by Pulse 99 99 100 Oximetry 08/21/20 08/21/20 08/21/20 21:30 22:00 22:30 Temperature Pulse Rate 91 H 98 H 95 H Pulse Rate [ From Monitor] Respiratory 16 14 16 Rate Blood Pressure 119/69 148/85 141/80 O2 Sat by Pulse 100 97 96 Oximetry 08/21/20 08/21/20 08/21/20 23:00 23:24 23:30 Temperature Pulse Rate 99 H 99 H 98 H Pulse Rate [ From Monitor] Respiratory 14 20 Rate Blood Pressure 127/65 127/65 136/73 O2 Sat by Pulse 98 99 98 Oximetry 08/21/20 08/22/20 08/22/20 23:39 00:00 00:30 Temperature 98.3 F Pulse Rate 93 H 98 H Pulse Rate [ 93 H From Monitor] Respiratory 20 20 Rate Blood Pressure 127/75 127/75 O2 Sat by Pulse 99 99 Oximetry 08/22/20 08/22/20 08/22/20 01:00 01:30 02:00 Temperature Pulse Rate 90 90 93 H Pulse Rate [ From Monitor] Respiratory 20 13 20 Rate Blood Pressure 125/79 128/80 143/86 O2 Sat by Pulse 98 100 100 Oximetry 08/22/20 08/22/20 08/22/20 02:30 03:00 03:30 Temperature Pulse Rate 89 95 H 119 H Pulse Rate [ From Monitor] Respiratory 20 15 17 Rate Blood Pressure 128/75 128/75 140/83 O2 Sat by Pulse 99 100 100 Oximetry 08/22/20 08/22/20 08/22/20 03:34 04:00 04:30 Temperature 98.4 F Pulse Rate 99 H 113 H Pulse Rate [ 106 H From Monitor] Respiratory 18 19 Rate Blood Pressure 130/78 146/80 O2 Sat by Pulse 86 100 Oximetry 08/22/20 08/22/20 08/22/20 04:34 05:00 05:30 Temperature Pulse Rate 110 H 108 H 104 H Pulse Rate [ From Monitor] Respiratory 17 21 Rate Blood Pressure 146/80 143/88 143/75 O2 Sat by Pulse 99 94 95 Oximetry 08/22/20 08/22/20 08/22/20 06:00 06:30 07:24 Temperature Pulse Rate 102 H 96 H 96 H Pulse Rate [ From Monitor] Respiratory 19 20 20 Rate Blood Pressure 138/72 123/62 123/62 O2 Sat by Pulse 91 93 93 Oximetry Constitutional: no acute distress, other (middle aged male with mildly increased respiratory effort at rest on MVS) Eyes: non-icteric ENT: oropharynx moist, other (ETT 23 cm [place]) Effort: mildly labored Ascultation: Bilateral: rhonchi (improved) Percussion: Bilateral: not dull Cardiovascular: regular rate and rhythm Gastrointestinal: normoactive bowel sounds, soft, non-tender, non-distended (protuberant) Integumentary: normal Extremities: no cyanosis, no edema, pink and warm, pulses normal, no ischemia or petechiae Neurologic: non-focal exam (grossly), pupils equal and round, unable to assess Psychiatric: other (unable to assess re: AMS) CBC and BMP: 08/23/20 04:29 08/23/20 04:29 ABG, PT/INR, D-dimer: ABG ABG pH 7.361 (7.320-7.450) 08/22/20 05:52 POC ABG pCO2 38.2 mmHg (32.0-48.0) 08/22/20 05:52 ABG pCO2 35.2 mm Hg 08/21/20 04:22 POC ABG pO2 64.0 mmHg (83-108) L 08/22/20 05:52 ABG pO2 89.9 mm Hg (80.0-90.0) 08/21/20 04:22 POC ABG HCO3 21.1 08/22/20 05:52 ABG O2 Saturation 97.3 % (95.0-99.0) 08/21/20 04:22 PT/INR, D-dimer PT 13.9 Sec. (12.2-14.9) 08/16/20 Unknown INR 1.06 (0.87-1.13) 08/16/20 Unknown D-Dimer 882.17 ng/mlDDU (0-234) H 08/16/20 14:45 D-Dimer 925.88 ng/mlDDU (0-234) H 08/16/20 14:45 Abnormal lab findings: Abnormal Labs 08/15/20 08/15/20 08/15/20 06:00 07:32 07:32 WBC RBC Hgb Hct MCHC RDW [place] # (Auto) Seg Neutrophils % Seg Neutrophils # APTT D-Dimer ABG pH POC ABG pO2 ABG pO2 ABG HCO3 ABG Base Excess ABG Hemoglobin ABG Sodium ABG Potassium ABG Chloride ABG Glucose Oxyhemoglobin Sodium 132 L Potassium Chloride 94.3 L Carbon Dioxide 19 L BUN 45 H Creatinine 1.6 H Glucose 285 H POC Glucose Calcium 10.4 H Phosphorus Magnesium Total Creatine Kinase 446 H CK-MB (CK-2) 8.8 H C-Reactive Protein Total Protein Albumin 3.7 L Triglycerides Arterial Blood Glucose Arterial Blood Ionized Calcium Salicylates < 0.3 L Acetaminophen < 5.0 L 08/15/20 08/15/20 08/16/20 10:45 21:10 04:30 WBC RBC Hgb Hct MCHC RDW [place] # (Auto) Seg Neutrophils % Seg Neutrophils # APTT D-Dimer ABG pH 7.338 L 7.345 L POC ABG pO2 ABG pO2 105.9 H 134.5 H ABG HCO3 19.2 L ABG Base Excess -5.9 L -5.2 L ABG Hemoglobin 12.3 L 12.1 L ABG Sodium ABG Potassium ABG Chloride ABG Glucose Oxyhemoglobin Sodium Potassium Chloride Carbon Dioxide BUN Creatinine Glucose 297 H POC Glucose Calcium Phosphorus Magnesium Total Creatine Kinase CK-MB (CK-2) C-Reactive Protein Total Protein Albumin Triglycerides Arterial Blood Glucose Arterial Blood Ionized Calcium Salicylates Acetaminophen 08/16/20 08/16/20 08/16/20 08:59 14:45 14:45 WBC RBC Hgb Hct 35.3 L MCHC RDW 15.7 H [place] # (Auto) Seg Neutrophils % Seg Neutrophils # APTT D-Dimer ABG pH POC ABG pO2 ABG pO2 ABG HCO3 ABG Base Excess ABG Hemoglobin ABG Sodium ABG Potassium ABG Chloride ABG Glucose Oxyhemoglobin Sodium Potassium 3.4 L Chloride 109.0 H Carbon Dioxide BUN 32 H Creatinine Glucose 186 H POC Glucose Calcium Phosphorus 1.50 L Magnesium 1.60 L Total Creatine Kinase CK-MB (CK-2) C-Reactive Protein Total Protein 6.0 L Albumin 3.1 L Triglycerides Arterial Blood Glucose Arterial Blood Ionized Calcium Salicylates Acetaminophen 08/16/20 08/16/20 08/16/20 14:45 14:45 14:45 WBC RBC Hgb Hct MCHC RDW [place] # (Auto) Seg Neutrophils % Seg Neutrophils # APTT D-Dimer 925.88 H 882.17 H ABG pH POC ABG pO2 ABG pO2 ABG HCO3 ABG Base Excess ABG Hemoglobin ABG Sodium ABG Potassium ABG Chloride ABG Glucose Oxyhemoglobin Sodium Potassium Chloride Carbon Dioxide BUN Creatinine Glucose POC Glucose Calcium Phosphorus Magnesium Total Creatine Kinase CK-MB (CK-2) C-Reactive Protein 2.70 H Total Protein Albumin Triglycerides Arterial Blood Glucose Arterial Blood Ionized Calcium Salicylates Acetaminophen 08/16/20 08/16/20 08/16/20 17:42 Unknown Unknown WBC 16.7 H RBC Hgb Hct MCHC RDW [place] # (Auto) 1.0 H Seg Neutrophils % 79.9 H Seg Neutrophils # 13.4 H APTT 23.9 L D-Dimer ABG pH POC ABG pO2 ABG pO2 ABG HCO3 ABG Base Excess ABG Hemoglobin ABG Sodium ABG Potassium ABG Chloride ABG Glucose Oxyhemoglobin Sodium Potassium Chloride Carbon Dioxide BUN Creatinine Glucose POC Glucose 169 H Calcium Phosphorus Magnesium Total Creatine Kinase CK-MB (CK-2) C-Reactive Protein Total Protein Albumin Triglycerides Arterial Blood Glucose Arterial Blood Ionized Calcium Salicylates Acetaminophen 08/16/20 08/17/20 08/17/20 Unknown 00:06 03:40 WBC RBC Hgb Hct MCHC RDW [place] # (Auto) Seg Neutrophils % Seg Neutrophils # APTT D-Dimer ABG pH POC ABG pO2 60.8 L ABG pO2 ABG HCO3 ABG Base Excess ABG Hemoglobin ABG Sodium ABG Potassium ABG Chloride 115.0 H ABG Glucose 139 H Oxyhemoglobin Sodium Potassium Chloride Carbon Dioxide 17 L BUN 33 H Creatinine Glucose 233 H POC Glucose 125 H Calcium Phosphorus Magnesium Total Creatine Kinase CK-MB (CK-2) C-Reactive Protein Total Protein Albumin Triglycerides Arterial Blood Glucose 139 H Arterial Blood Ionized Calcium 5.5 H Salicylates Acetaminophen 08/17/20 08/17/20 08/17/20 05:52 12:30 17:47 WBC RBC Hgb Hct MCHC RDW [place] # (Auto) Seg Neutrophils % Seg Neutrophils # APTT D-Dimer ABG pH POC ABG pO2 ABG pO2 ABG HCO3 ABG Base Excess ABG Hemoglobin ABG Sodium ABG Potassium ABG Chloride ABG Glucose Oxyhemoglobin Sodium Potassium Chloride Carbon Dioxide BUN Creatinine Glucose POC Glucose 139 H 133 H 157 H Calcium Phosphorus Magnesium Total Creatine Kinase CK-MB (CK-2) C-Reactive Protein Total Protein Albumin Triglycerides Arterial Blood Glucose Arterial Blood Ionized Calcium Salicylates Acetaminophen 08/18/20 08/18/20 08/18/20 00:08 04:00 05:31 WBC RBC Hgb Hct MCHC RDW [place] # (Auto) Seg Neutrophils % Seg Neutrophils # APTT D-Dimer ABG pH 7.315 L POC ABG pO2 ABG pO2 75.1 L ABG HCO3 ABG Base Excess -4.3 L ABG Hemoglobin 11.9 L ABG Sodium ABG Potassium ABG Chloride ABG Glucose Oxyhemoglobin 93.7 L Sodium Potassium Chloride Carbon Dioxide BUN Creatinine Glucose POC Glucose 129 H 114 H Calcium Phosphorus Magnesium Total Creatine Kinase CK-MB (CK-2) C-Reactive Protein Total Protein Albumin Triglycerides Arterial Blood Glucose Arterial Blood Ionized Calcium Salicylates Acetaminophen 08/18/20 08/19/20 08/19/20 12:26 00:02 04:19 WBC RBC Hgb Hct MCHC RDW [place] # (Auto) Seg Neutrophils % Seg Neutrophils # APTT D-Dimer ABG pH 7.451 H POC ABG pO2 172.9 H ABG pO2 ABG HCO3 ABG Base Excess ABG Hemoglobin ABG Sodium ABG Potassium ABG Chloride ABG Glucose Oxyhemoglobin Sodium Potassium Chloride Carbon Dioxide BUN Creatinine Glucose POC Glucose 112 H 107 H Calcium Phosphorus Magnesium Total Creatine Kinase CK-MB (CK-2) C-Reactive Protein Total Protein Albumin Triglycerides Arterial Blood Glucose Arterial Blood Ionized Calcium Salicylates Acetaminophen 08/19/20 08/19/20 08/19/20 05:34 12:48 18:01 WBC RBC Hgb Hct MCHC RDW [place] # (Auto) Seg Neutrophils % Seg Neutrophils # APTT D-Dimer ABG pH POC ABG pO2 ABG pO2 ABG HCO3 ABG Base Excess ABG Hemoglobin ABG Sodium ABG Potassium ABG Chloride ABG Glucose Oxyhemoglobin Sodium Potassium Chloride Carbon Dioxide BUN Creatinine Glucose POC Glucose 114 H 198 H 211 H Calcium Phosphorus Magnesium Total Creatine Kinase CK-MB (CK-2) C-Reactive Protein Total Protein Albumin Triglycerides Arterial Blood Glucose Arterial Blood Ionized Calcium Salicylates Acetaminophen 08/19/20 08/20/20 08/20/20 21:40 05:00 05:15 WBC RBC Hgb Hct MCHC RDW [place] # (Auto) Seg Neutrophils % Seg Neutrophils # APTT D-Dimer ABG pH POC ABG pO2 72.1 L ABG pO2 ABG HCO3 ABG Base Excess ABG Hemoglobin ABG Sodium 132.4 L ABG Potassium 2.7 L ABG Chloride ABG Glucose 293 H Oxyhemoglobin Sodium Potassium Chloride Carbon Dioxide BUN Creatinine Glucose POC Glucose 252 H Calcium Phosphorus Magnesium Total Creatine Kinase CK-MB (CK-2) C-Reactive Protein Total Protein Albumin Triglycerides 260 H Arterial Blood Glucose 293 H Arterial Blood Ionized Calcium Salicylates Acetaminophen 08/20/20 08/20/20 08/20/20 07:06 07:45 12:20 WBC RBC Hgb Hct MCHC RDW [place] # (Auto) Seg Neutrophils % Seg Neutrophils # APTT D-Dimer ABG pH POC ABG pO2 ABG pO2 ABG HCO3 ABG Base Excess ABG Hemoglobin ABG Sodium ABG Potassium ABG Chloride ABG Glucose Oxyhemoglobin Sodium Potassium 2.9 L* Chloride Carbon Dioxide BUN Creatinine 0.6 L Glucose 304 H POC Glucose 238 H 303 H Calcium Phosphorus Magnesium Total Creatine Kinase CK-MB (CK-2) C-Reactive Protein Total Protein Albumin Triglycerides Arterial Blood Glucose Arterial Blood Ionized Calcium Salicylates Acetaminophen 08/20/20 08/21/20 08/21/20 17:49 00:18 04:05 WBC RBC 3.50 L Hgb 10.9 L Hct 31.3 L MCHC 35 H RDW [place] # (Auto) Seg Neutrophils % Seg Neutrophils # APTT D-Dimer ABG pH POC ABG pO2 ABG pO2 ABG HCO3 ABG Base Excess ABG Hemoglobin ABG Sodium ABG Potassium ABG Chloride ABG Glucose Oxyhemoglobin Sodium Potassium Chloride Carbon Dioxide BUN Creatinine Glucose POC Glucose 302 H 254 H Calcium Phosphorus Magnesium Total Creatine Kinase CK-MB (CK-2) C-Reactive Protein Total Protein Albumin Triglycerides Arterial Blood Glucose Arterial Blood Ionized Calcium Salicylates Acetaminophen 08/21/20 08/21/20 08/21/20 04:05 04:22 05:13 WBC RBC Hgb Hct MCHC RDW [place] # (Auto) Seg Neutrophils % Seg Neutrophils # APTT D-Dimer ABG pH POC ABG pO2 ABG pO2 ABG HCO3 ABG Base Excess ABG Hemoglobin 10.9 L ABG Sodium ABG Potassium ABG Chloride ABG Glucose Oxyhemoglobin Sodium Potassium 3.5 L D Chloride Carbon Dioxide BUN 24 H Creatinine 0.5 L Glucose 274 H POC Glucose 240 H Calcium Phosphorus Magnesium Total Creatine Kinase CK-MB (CK-2) C-Reactive Protein Total Protein Albumin Triglycerides Arterial Blood Glucose Arterial Blood Ionized Calcium Salicylates Acetaminophen 08/21/20 08/21/20 08/21/20 11:30 17:37 Unknown WBC RBC Hgb Hct MCHC RDW [place] # (Auto) Seg Neutrophils % Seg Neutrophils # APTT D-Dimer ABG pH POC ABG pO2 ABG pO2 ABG HCO3 ABG Base Excess ABG Hemoglobin ABG Sodium ABG Potassium ABG Chloride ABG Glucose Oxyhemoglobin Sodium Potassium Chloride Carbon Dioxide BUN Creatinine Glucose POC Glucose 296 H 272 H Calcium Phosphorus Magnesium 1.30 L Total Creatine Kinase CK-MB (CK-2) C-Reactive Protein Total Protein Albumin Triglycerides Arterial Blood Glucose Arterial Blood Ionized Calcium Salicylates Acetaminophen 08/22/20 08/22/20 08/22/20 00:42 04:00 04:00 WBC RBC Hgb 11.2 L Hct 33.1 L MCHC RDW [place] # (Auto) Seg Neutrophils % Seg Neutrophils # APTT D-Dimer ABG pH POC ABG pO2 ABG pO2 ABG HCO3 ABG Base Excess ABG Hemoglobin ABG Sodium ABG Potassium ABG Chloride ABG Glucose Oxyhemoglobin Sodium Potassium 3.4 L Chloride Carbon Dioxide BUN 23 H Creatinine 0.5 L Glucose 266 H POC Glucose 278 H Calcium Phosphorus Magnesium Total Creatine Kinase CK-MB (CK-2) C-Reactive Protein Total Protein Albumin Triglycerides Arterial Blood Glucose Arterial Blood Ionized Calcium Salicylates Acetaminophen 08/22/20 08/22/20 05:31 05:52 WBC RBC Hgb Hct MCHC RDW [place] # (Auto) Seg Neutrophils % Seg Neutrophils # APTT D-Dimer ABG pH POC ABG pO2 64.0 L ABG pO2 ABG HCO3 ABG Base Excess ABG Hemoglobin 11.9 L ABG Sodium ABG Potassium ABG Chloride ABG Glucose 238 H Oxyhemoglobin Sodium Potassium Chloride Carbon Dioxide BUN Creatinine Glucose POC Glucose 236 H Calcium Phosphorus Magnesium Total Creatine Kinase CK-MB (CK-2) C-Reactive Protein Total Protein Albumin Triglycerides Arterial Blood Glucose 238 H Arterial Blood Ionized Calcium Salicylates Acetaminophen Chest x-ray: image reviewed (mild interstitial edema; ETT in good position) Allied health notes reviewed: nursing
[2020-08-22] MEDS ORDERED: POTASSIUM CHLORIDE 20 MEQ PACKET FEEDTUBE ONE (10:00)
[2020-08-22] MEDS ORDERED: INSULIN GLARGINE 100 UNITS/ML SUB-Q ONE (10:00)
--- NOTE | 2020-08-22 10:26 | Progress Note ---
Assessment and Plan Cultures: 08/15/2020 blood cultures no growth today 08/15/2020 CSF culture no growth today 11/15/2019 urine culture no growth Assessment: 55 years old male with history of diabetes mellitus, hypertension, peripheral vascular disease, alcohol abuse, tobacco abuse, left foot diabetic ulceration with an abscess secondary to MRSA in February 2020, admitted on 08/16/2020 due to altered mental status lethargy unresponsive: #Severe sepsis with septic shock: Off pressors, leukocytosis resolved, noted low-grade fever. Source unclear, possible right elbow infection? vs pneumonia. Chest x-ray possible right lower lobe infiltrate. Urinalysis negative. SARS-CoV-2 PCR negative. Patient underwent lumbar puncture in the emergency room, ED provider kindly contacted me with results -WBCs 10, RBCs 381. This is not consistent with meningitis. Procalcitonin normal. #Possible pneumonia: Repeat CXR mild infiltrates. Sputum culture grew MSSA ? colonizer (no wbc in resp specimen) #Acute hypoxemic respiratory failure: Patient intubated #Right elbow ulcer abscess / sinus tract: Likely infected ? exposed joint. Elbow x-ray reading pending. CRP 2.7. #Acute encephalopathy: Likely secondary to sepsis versus metabolic. ?drugs. 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 CSF with no pleocytosis but high protein. #Peripheral vascular disease: Very cold feet bilaterally. Arterial Doppler without any evidence of PAD?. Previous arterial Doppler abnormal. #Multiple skin tears in left hand and left lower extremities: Likely secondary to peripheral vascular disease Recommendations: -Orthopedics evaluation of the right elbow deep wound ? Exposed joint ? r/o septic joint ?elbow MRI -Obtain left elbow CT - ordered -Continue vancomycin with PK consult - day 7 of 7 to cover pneumonia and possible elbow wound infection -Continue cefepime IV 2 g every 8 hours - day 7 of 7 to cover pneumonia and possible elbow wound infection -If there is evidence of elbow septic join then IV abx should be extended -Wound care consultation Will follow. Pastora Gongora MD Infectious Diseases Building Custodial Supervisor [facility] M [phone] O [phone] Subjective Date of service: 08/22/20 Principal diagnosis: Ac hypoxemic resp failure; Ac encephalopathy (toxic metabolic); Sev. Sepsis Interval history: Patient remains intubated, sedated, no fever x 2 days Objective - Exam Narrative Exam: General appearance: Sedated in no acute distress intubated Eyes: anicteric sclerae, moist conjunctivae; no lid-lag; PERRLA HENT: Atraumatic; oropharynx clear limited endotracheal tube in place Lungs: Clear to auscultation bilaterally CV: RRR no murmur Abdomen: Soft, non-tender; no masses or hepatosplenomegaly Extremities: Left foot partial amputation healed. Right elbow with an open wound, deep cord with the residents Skin: Multiple lower extremity skin tear. Psych: Sedated Neuro: Sedated - - Constitutional Vitals: Vital Signs Temp Pulse Resp BP Pulse Ox 98.4 F 109 H 12 137/77 95 08/22/20 08:00 08/22/20 08:00 08/22/20 08:00 08/22/20 08:00 08/22/20 08:00 Temperature -Last 24 Hours Temperature 98.4 F Temperature 98.4 F Temperature 98.3 F Temperature 98.7 F Temperature 98.4 F Temperature 98.4 F - Labs CBC & Chem 7: 08/22/20 04:00 08/22/20 04:00 Labs: Abnormal lab results 08/21/20 08/21/20 08/21/20 Range/Units 11:30 17:37 Unknown Hgb (11.8-15.2) gm/dl Hct (35.5-45.6) % POC ABG pO2 (83-108) mmHg ABG Hemoglobin (12.0-17.5) ABG Glucose (65-95) mg/dL Potassium (3.6-5.0) mmol/L BUN (9-20) mg/dL Creatinine (0.8-1.3) mg/dL Glucose (75-100) mg/dL POC Glucose 296 H 272 H (70-105) mg/dL Magnesium 1.30 L (1.7-2.3) mg/dL Arterial Blood Glucose (65-95) mg/dL 08/22/20 08/22/20 08/22/20 Range/Units 00:42 04:00 04:00 Hgb 11.2 L (11.8-15.2) gm/dl Hct 33.1 L (35.5-45.6) % POC ABG pO2 (83-108) mmHg ABG Hemoglobin (12.0-17.5) ABG Glucose (65-95) mg/dL Potassium 3.4 L (3.6-5.0) mmol/L BUN 23 H (9-20) mg/dL Creatinine 0.5 L (0.8-1.3) mg/dL Glucose 266 H (75-100) mg/dL POC Glucose 278 H (70-105) mg/dL Magnesium (1.7-2.3) mg/dL Arterial Blood Glucose (65-95) mg/dL 08/22/20 08/22/20 Range/Units 05:31 05:52 Hgb (11.8-15.2) gm/dl Hct (35.5-45.6) % POC ABG pO2 64.0 L (83-108) mmHg ABG Hemoglobin 11.9 L (12.0-17.5) ABG Glucose 238 H (65-95) mg/dL Potassium (3.6-5.0) mmol/L BUN (9-20) mg/dL Creatinine (0.8-1.3) mg/dL Glucose (75-100) mg/dL POC Glucose 236 H (70-105) mg/dL Magnesium (1.7-2.3) mg/dL Arterial Blood Glucose 238 H (65-95) mg/dL
[2020-08-22] MEDS: QUEtiapine 200 MG TAB PO SCH ×2 (11:22→21:45)
[2020-08-22] MEDS: FAMOTIDINE 20 MG TAB PO SCH ×2 (11:22→21:45)
[2020-08-22] MEDS: VANCOMYCIN 1,750 MG in SODIUM CHLORIDE 0.9% 500 ML 500 ML IV SCH ×2 (11:23→21:45)
[2020-08-22] MEDS: ENOXAPARIN 40 MG/0.4 ML INJ SUB-Q SCH (21:45)
[2020-08-22] MEDS ORDERED: ACETAMINOPHEN 325 MG/10.15 ML ORAL LIQD UNIT DOSE FEEDTUBE PRN (21:50)
[2020-08-22] MEDS: INSULIN GLARGINE 100 UNITS/ML SUB-Q SCH (21:59)
[2020-08-23] MEDS: INSULIN LISPRO 100 UNIT/ML VIAL 3 mL SUB-Q SCH ×4 (00:16→18:00)
[2020-08-23] MEDS: fentaNYL DRIP Premix 2,000 MCG/100 ML BAG IV SCH ×3 (05:20→19:54)
[2020-08-23] MEDS: CEFEPIME/NS 2 GM/100 ML 2 GM/100 ML BAG IV SCH (05:35)
[2020-08-23] MEDS: PHENobarbital 20 MG/5 ML ORAL LIQD FEEDTUBE SCH ×3 (05:35→22:43)
[2020-08-23 05:54] LABS: Hematocrit 30.9 % (35.5-45.6); Hemoglobin 10.7 gm/dl (11.8-15.2); Mean Corpuscular HGB Conc 35 % (32-34); Mean Corpuscular Volume 90 fl (84-94); Platelet Count 226 K/mm3 (140-440); Red Blood Count 3.43 M/mm3 (3.65-5.03)
[2020-08-23 06:11] LABS: Blood Urea Nitrogen 26 mg/dL (9-20); Calcium 9.5 mg/dL (8.4-10.2); Hemolysis Index 46
[2020-08-23 06:16] LABS: BUN/Creatinine Ratio 52
[2020-08-23] MEDS: FAMOTIDINE 20 MG TAB PO SCH ×2 (09:00→22:19)
[2020-08-23] MEDS: VANCOMYCIN 1,750 MG in SODIUM CHLORIDE 0.9% 500 ML 500 ML IV SCH (09:00)
[2020-08-23] MEDS: QUEtiapine 200 MG TAB PO SCH ×2 (09:00→22:19)
--- NOTE | 2020-08-23 12:03 | Progress Note ---
Assessment and Plan Cultures: 08/15/2020 blood cultures no growth today 08/15/2020 CSF culture no growth today 11/15/2019 urine culture no growth Assessment: 55 years old male with history of diabetes mellitus, hypertension, peripheral vascular disease, alcohol abuse, tobacco abuse, left foot diabetic ulceration with an abscess secondary to MRSA in February 2020, admitted on 08/16/2020 due to altered mental status lethargy unresponsive: #Severe sepsis with septic shock: Off pressors, leukocytosis resolved, remains low-grade fever. Source unclear, possible right elbow infection? vs pneumonia. Chest x-ray possible right lower lobe infiltrate. Urinalysis negative. SARS-CoV-2 PCR negative. Patient underwent lumbar puncture in the emergency room, ED provider kindly contacted me with results -WBCs 10, RBCs 381. This is not consistent with meningitis. Procalcitonin normal. #Possible pneumonia: Repeat CXR mild infiltrates. Sputum culture grew MSSA ? colonizer (no wbc in resp specimen) #Acute hypoxemic respiratory failure: Patient intubated #Right elbow ulcer abscess / sinus tract: Likely infected ? exposed joint. Elbow x-ray reading pending. CRP 2.7. #Acute encephalopathy: Likely secondary to sepsis versus metabolic. ?drugs. 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 CSF with no pleocytosis but high protein. #Peripheral vascular disease: Very cold feet bilaterally. Arterial Doppler without any evidence of PAD?. Previous arterial Doppler abnormal. #Multiple skin tears in left hand and left lower extremities: Likely secondary to peripheral vascular disease Recommendations: -Orthopedics evaluation of the right elbow deep wound ? Exposed joint ? r/o septic joint ?elbow MRI -Obtain left elbow CT - ordered and abdominal CT - needs two physicians to sign -Completed vancomycin and cefepime on 08/22 -If there is evidence of elbow septic join then IV abx should be extended -Wound care consultation Will follow. Pastora Gongora MD Infectious Diseases [facility] ([facility] M [phone] O [phone] Subjective Date of service: 08/23/20 Principal diagnosis: Ac hypoxemic resp failure; Ac encephalopathy (toxic metabolic); Sev. Sepsis Interval history: Patient remains intubated, sedated, remains with low grade fever Objective - Exam Narrative Exam: General appearance: Sedated in no acute distress intubated Eyes: anicteric sclerae, moist conjunctivae; no lid-lag; PERRLA HENT: Atraumatic; oropharynx clear limited endotracheal tube in place Lungs: Clear to auscultation bilaterally CV: RRR no murmur Abdomen: Soft, +tender to palpation diffusely Extremities: Left foot partial amputation healed. Right elbow with an open wound, deep cord with the residents Skin: Multiple lower extremity skin tear. Psych: Sedated Neuro: Sedated - - Constitutional Vitals: Vital Signs Temp Pulse Resp BP Pulse Ox 99.3 F 87 13 115/70 99 08/23/20 08:00 08/23/20 11:16 08/23/20 11:16 08/23/20 11:16 08/23/20 11:16 Temperature -Last 24 Hours Temperature 99.3 F Temperature 99.3 F Temperature 98.8 F Temperature 99.9 F Temperature 100.7 F Temperature 99.9 F - Labs CBC & Chem 7: 08/23/20 04:29 08/23/20 04:29 Labs: Abnormal lab results 08/22/20 08/22/20 08/22/20 Range/Units 12:51 13:37 17:14 RBC (3.65-5.03) M/mm3 Hgb (11.8-15.2) gm/dl Hct (35.5-45.6) % MCHC (32-34) % BUN (9-20) mg/dL Creatinine (0.8-1.3) mg/dL Glucose (75-100) mg/dL POC Glucose 279 H 287 H (70-105) mg/dL Magnesium 1.60 L (1.7-2.3) mg/dL 08/23/20 08/23/20 08/23/20 Range/Units 00:03 04:29 04:29 RBC 3.43 L (3.65-5.03) M/mm3 Hgb 10.7 L (11.8-15.2) gm/dl Hct 30.9 L (35.5-45.6) % MCHC 35 H (32-34) % BUN 26 H (9-20) mg/dL Creatinine 0.5 L (0.8-1.3) mg/dL Glucose 257 H (75-100) mg/dL POC Glucose 312 H (70-105) mg/dL Magnesium (1.7-2.3) mg/dL 08/23/20 Range/Units 05:27 RBC (3.65-5.03) M/mm3 Hgb (11.8-15.2) gm/dl Hct (35.5-45.6) % MCHC (32-34) % BUN (9-20) mg/dL Creatinine (0.8-1.3) mg/dL Glucose (75-100) mg/dL POC Glucose 235 H (70-105) mg/dL Magnesium (1.7-2.3) mg/dL
--- NOTE | 2020-08-23 12:46 | Progress Note ---
Assessment and Plan Acute hypoxemic respiratory failure on MVS Acute encephalopathy, presumably toxic metabolic. Severe sepsis with shock. History of diabetes. History of a cerebrovascular accident with persistent left hemiparesis. History of alcohol abuse. Hypertension. Chronic pain syndrome. History of deep venous thrombosis. - hold fentanyl - resume daily SAT and SBT assessment as tolerated - get US of left antecubital fossa in lieu of CT with contrast (unable to reach family) - tentative extubation in am if does well with SBT - continue care as below otherwise; - continue to wean supplemental oxygen for target O2 sat's > 92% acutely - VAP bundle addressed - continue lung protective strategies - continue bronchodilators with pulmonary hygiene per RT - wean per pulmonary driven protocols otherwise - accuchecks with glycemic control per SSI (While critically ill target blood glucose of 140-180 mg/dL; avoid hypoglycemia) - sedation prn for target RASS 0 to -1 - avoid nephrotoxins, renally dose all medications - completed AB's per ID rec's - prn analgesia per CPOT score - Maintenance of sleep-wake cycle, avoid delirium - continue enteral nutritional support at goal rate as tolerated - G.I. & VTE prophylaxis - PT/OT/ROM exercises - continue mobility protocols for pressure ulcer prophylaxis - Monitor hemodynamics closely - continue other care per attending / other consultants - discharge planning ongoing concurrently .... Re-evaluate in am & prn CONDITION: CRITICAL PROGNOSIS: GUARDED CODE STATUS: FULL CODE The high probability of a clinically significant, sudden or life-threatening deterioration of the [respiratory, cardiovascular & neurologic] system(s) required my full and direct attention, intervention and personal management. The aggregate critical care time was [32] minutes without overlap. Time includes spent on; [x] Data Review and interpretation [x] Patient assessment and monitoring of vital signs [x] Documentation [x] Medication orders and management Subjective Date of service: 08/23/20 Principal diagnosis: Ac hypoxemic resp failure; Ac encephalopathy (toxic metabolic); Sev. Sepsis Interval history: Patient is seen today for: Acute hypoxemic respiratory failure; Acute encephalopathy (toxic metabolic); Severe sepsis with shock; DM II; CVA; alcohol abuse; HTN; DVT Seen and examined at bedside; 24hour events reviewed; nursing and respiratory care staff consulted; no adverse overnight events reported to me; resting in bed; sedated to RASS 0; responds appropriately; remains on full suppoprt; no N/V/F/C Objective Vital Signs - 12hr 08/23/20 08/23/20 08/23/20 01:00 01:30 02:00 Temperature Pulse Rate 91 H 103 H 87 Pulse Rate [ From Monitor] Respiratory 20 21 20 Rate Blood Pressure 120/66 120/66 105/61 O2 Sat by Pulse 98 98 98 Oximetry 08/23/20 08/23/20 08/23/20 02:30 03:00 03:24 Temperature Pulse Rate 91 H 90 91 H Pulse Rate [ From Monitor] Respiratory 20 16 Rate Blood Pressure 119/72 124/71 124/71 O2 Sat by Pulse 97 97 95 Oximetry 08/23/20 08/23/20 08/23/20 03:30 03:42 04:00 Temperature 98.8 F Pulse Rate 93 H 117 H Pulse Rate [ 105 H From Monitor] Respiratory 19 21 Rate Blood Pressure 124/71 98/66 O2 Sat by Pulse 98 98 Oximetry 08/23/20 08/23/20 08/23/20 04:30 05:00 05:30 Temperature Pulse Rate 102 H 112 H 113 H Pulse Rate [ From Monitor] Respiratory 18 22 25 H Rate Blood Pressure 98/66 98/66 98/66 O2 Sat by Pulse 94 97 Oximetry 08/23/20 08/23/20 08/23/20 06:00 06:30 07:00 Temperature Pulse Rate 103 H 92 H 91 H Pulse Rate [ From Monitor] Respiratory 20 14 15 Rate Blood Pressure 117/69 115/65 112/64 O2 Sat by Pulse 93 94 96 Oximetry 08/23/20 08/23/20 08/23/20 07:30 08:00 08:30 Temperature 99.3 F Pulse Rate 90 85 84 Pulse Rate [ 85 From Monitor] Respiratory 21 20 19 Rate Blood Pressure 106/61 118/71 111/64 O2 Sat by Pulse 97 98 97 Oximetry 08/23/20 08/23/20 08/23/20 08:52 08:56 09:00 Temperature Pulse Rate 92 H 89 87 Pulse Rate [ From Monitor] Respiratory 21 20 Rate Blood Pressure 111/64 111/64 107/68 O2 Sat by Pulse 96 96 96 Oximetry 08/23/20 08/23/20 08/23/20 09:16 09:30 09:46 Temperature Pulse Rate 86 88 94 H Pulse Rate [ From Monitor] Respiratory 16 15 16 Rate Blood Pressure 107/68 112/65 112/65 O2 Sat by Pulse 96 95 97 Oximetry 08/23/20 08/23/20 08/23/20 10:00 10:16 10:30 Temperature Pulse Rate 95 H 92 H 99 H Pulse Rate [ From Monitor] Respiratory 14 13 12 Rate Blood Pressure 121/75 121/75 121/75 O2 Sat by Pulse 98 98 99 Oximetry 08/23/20 08/23/20 08/23/20 10:46 11:00 11:16 Temperature Pulse Rate 90 89 87 Pulse Rate [ From Monitor] Respiratory 12 12 13 Rate Blood Pressure 121/75 115/70 115/70 O2 Sat by Pulse 97 98 99 Oximetry Constitutional: no acute distress, other (middle aged male with mildly increased respiratory effort at rest on MVS) Eyes: non-icteric ENT: oropharynx moist, other (ETT 23 cm AMERICO) Neck: supple, no lymphadenopathy, no JVD Effort: mildly labored Ascultation: Bilateral: clear, diminished breath sounds Percussion: Bilateral: not dull Cardiovascular: regular rate and rhythm Gastrointestinal: normoactive bowel sounds, soft, non-tender, non-distended (protuberant) Integumentary: normal Extremities: no cyanosis, no edema, pink and warm, pulses normal, no ischemia or petechiae Neurologic: non-focal exam (grossly), pupils equal and round, motor strength normal and Psychiatric: mood appropriate, affect normal CBC and BMP: 08/23/20 04:29 08/23/20 04:29 ABG, PT/INR, D-dimer: ABG ABG pH 7.361 (7.320-7.450) 08/22/20 05:52 POC ABG pCO2 38.2 mmHg (32.0-48.0) 08/22/20 05:52 ABG pCO2 35.2 mm Hg 08/21/20 04:22 POC ABG pO2 64.0 mmHg (83-108) L 08/22/20 05:52 ABG pO2 89.9 mm Hg (80.0-90.0) 08/21/20 04:22 POC ABG HCO3 21.1 08/22/20 05:52 ABG O2 Saturation 97.3 % (95.0-99.0) 08/21/20 04:22 PT/INR, D-dimer PT 13.9 Sec. (12.2-14.9) 08/16/20 Unknown INR 1.06 (0.87-1.13) 08/16/20 Unknown D-Dimer 882.17 ng/mlDDU (0-234) H 08/16/20 14:45 D-Dimer 925.88 ng/mlDDU (0-234) H 08/16/20 14:45 Abnormal lab findings: Abnormal Labs 08/15/20 08/15/20 08/15/20 06:00 07:32 07:32 WBC RBC Hgb Hct MCHC RDW Scott # (Auto) Seg Neutrophils % Seg Neutrophils # APTT D-Dimer ABG pH POC ABG pO2 ABG pO2 ABG HCO3 ABG Base Excess ABG Hemoglobin ABG Sodium ABG Potassium ABG Chloride ABG Glucose Oxyhemoglobin Sodium 132 L Potassium Chloride 94.3 L Carbon Dioxide 19 L BUN 45 H Creatinine 1.6 H Glucose 285 H POC Glucose Calcium 10.4 H Phosphorus Magnesium Total Creatine Kinase 446 H CK-MB (CK-2) 8.8 H C-Reactive Protein Total Protein Albumin 3.7 L Triglycerides Arterial Blood Glucose Arterial Blood Ionized Calcium Salicylates < 0.3 L Acetaminophen < 5.0 L 08/15/20 08/15/20 08/16/20 10:45 21:10 04:30 WBC RBC Hgb Hct MCHC RDW Scott # (Auto) Seg Neutrophils % Seg Neutrophils # APTT D-Dimer ABG pH 7.338 L 7.345 L POC ABG pO2 ABG pO2 105.9 H 134.5 H ABG HCO3 19.2 L ABG Base Excess -5.9 L -5.2 L ABG Hemoglobin 12.3 L 12.1 L ABG Sodium ABG Potassium ABG Chloride ABG Glucose Oxyhemoglobin Sodium Potassium Chloride Carbon Dioxide BUN Creatinine Glucose 297 H POC Glucose Calcium Phosphorus Magnesium Total Creatine Kinase CK-MB (CK-2) C-Reactive Protein Total Protein Albumin Triglycerides Arterial Blood Glucose Arterial Blood Ionized Calcium Salicylates Acetaminophen 08/16/20 08/16/20 08/16/20 08:59 14:45 14:45 WBC RBC Hgb Hct 35.3 L MCHC RDW 15.7 H Scott # (Auto) Seg Neutrophils % Seg Neutrophils # APTT D-Dimer ABG pH POC ABG pO2 ABG pO2 ABG HCO3 ABG Base Excess ABG Hemoglobin ABG Sodium ABG Potassium ABG Chloride ABG Glucose Oxyhemoglobin Sodium Potassium 3.4 L Chloride 109.0 H Carbon Dioxide BUN 32 H Creatinine Glucose 186 H POC Glucose Calcium Phosphorus 1.50 L Magnesium 1.60 L Total Creatine Kinase CK-MB (CK-2) C-Reactive Protein Total Protein 6.0 L Albumin 3.1 L Triglycerides Arterial Blood Glucose Arterial Blood Ionized Calcium Salicylates Acetaminophen 08/16/20 08/16/20 08/16/20 14:45 14:45 14:45 WBC RBC Hgb Hct MCHC RDW Scott # (Auto) Seg Neutrophils % Seg Neutrophils # APTT D-Dimer 925.88 H 882.17 H ABG pH POC ABG pO2 ABG pO2 ABG HCO3 ABG Base Excess ABG Hemoglobin ABG Sodium ABG Potassium ABG Chloride ABG Glucose Oxyhemoglobin Sodium Potassium Chloride Carbon Dioxide BUN Creatinine Glucose POC Glucose Calcium Phosphorus Magnesium Total Creatine Kinase CK-MB (CK-2) C-Reactive Protein 2.70 H Total Protein Albumin Triglycerides Arterial Blood Glucose Arterial Blood Ionized Calcium Salicylates Acetaminophen 08/16/20 08/16/20 08/16/20 17:42 Unknown Unknown WBC 16.7 H RBC Hgb Hct MCHC RDW Scott # (Auto) 1.0 H Seg Neutrophils % 79.9 H Seg Neutrophils # 13.4 H APTT 23.9 L D-Dimer ABG pH POC ABG pO2 ABG pO2 ABG HCO3 ABG Base Excess ABG Hemoglobin ABG Sodium ABG Potassium ABG Chloride ABG Glucose Oxyhemoglobin Sodium Potassium Chloride Carbon Dioxide BUN Creatinine Glucose POC Glucose 169 H Calcium Phosphorus Magnesium Total Creatine Kinase CK-MB (CK-2) C-Reactive Protein Total Protein Albumin Triglycerides Arterial Blood Glucose Arterial Blood Ionized Calcium Salicylates Acetaminophen 08/16/20 08/17/20 08/17/20 Unknown 00:06 03:40 WBC RBC Hgb Hct MCHC RDW Scott # (Auto) Seg Neutrophils % Seg Neutrophils # APTT D-Dimer ABG pH POC ABG pO2 60.8 L ABG pO2 ABG HCO3 ABG Base Excess ABG Hemoglobin ABG Sodium ABG Potassium ABG Chloride 115.0 H ABG Glucose 139 H Oxyhemoglobin Sodium Potassium Chloride Carbon Dioxide 17 L BUN 33 H Creatinine Glucose 233 H POC Glucose 125 H Calcium Phosphorus Magnesium Total Creatine Kinase CK-MB (CK-2) C-Reactive Protein Total Protein Albumin Triglycerides Arterial Blood Glucose 139 H Arterial Blood Ionized Calcium 5.5 H Salicylates Acetaminophen 08/17/20 08/17/20 08/17/20 05:52 12:30 17:47 WBC RBC Hgb Hct MCHC RDW Scott # (Auto) Seg Neutrophils % Seg Neutrophils # APTT D-Dimer ABG pH POC ABG pO2 ABG pO2 ABG HCO3 ABG Base Excess ABG Hemoglobin ABG Sodium ABG Potassium ABG Chloride ABG Glucose Oxyhemoglobin Sodium Potassium Chloride Carbon Dioxide BUN Creatinine Glucose POC Glucose 139 H 133 H 157 H Calcium Phosphorus Magnesium Total Creatine Kinase CK-MB (CK-2) C-Reactive Protein Total Protein Albumin Triglycerides Arterial Blood Glucose Arterial Blood Ionized Calcium Salicylates Acetaminophen 08/18/20 08/18/20 08/18/20 00:08 04:00 05:31 WBC RBC Hgb Hct MCHC RDW Scott # (Auto) Seg Neutrophils % Seg Neutrophils # APTT D-Dimer ABG pH 7.315 L POC ABG pO2 ABG pO2 75.1 L ABG HCO3 ABG Base Excess -4.3 L ABG Hemoglobin 11.9 L ABG Sodium ABG Potassium ABG Chloride ABG Glucose Oxyhemoglobin 93.7 L Sodium Potassium Chloride Carbon Dioxide BUN Creatinine Glucose POC Glucose 129 H 114 H Calcium Phosphorus Magnesium Total Creatine Kinase CK-MB (CK-2) C-Reactive Protein Total Protein Albumin Triglycerides Arterial Blood Glucose Arterial Blood Ionized Calcium Salicylates Acetaminophen 08/18/20 08/19/20 08/19/20 12:26 00:02 04:19 WBC RBC Hgb Hct MCHC RDW Scott # (Auto) Seg Neutrophils % Seg Neutrophils # APTT D-Dimer ABG pH 7.451 H POC ABG pO2 172.9 H ABG pO2 ABG HCO3 ABG Base Excess ABG Hemoglobin ABG Sodium ABG Potassium ABG Chloride ABG Glucose Oxyhemoglobin Sodium Potassium Chloride Carbon Dioxide BUN Creatinine Glucose POC Glucose 112 H 107 H Calcium Phosphorus Magnesium Total Creatine Kinase CK-MB (CK-2) C-Reactive Protein Total Protein Albumin Triglycerides Arterial Blood Glucose Arterial Blood Ionized Calcium Salicylates Acetaminophen 08/19/20 08/19/20 08/19/20 05:34 12:48 18:01 WBC RBC Hgb Hct MCHC RDW Scott # (Auto) Seg Neutrophils % Seg Neutrophils # APTT D-Dimer ABG pH POC ABG pO2 ABG pO2 ABG HCO3 ABG Base Excess ABG Hemoglobin ABG Sodium ABG Potassium ABG Chloride ABG Glucose Oxyhemoglobin Sodium Potassium Chloride Carbon Dioxide BUN Creatinine Glucose POC Glucose 114 H 198 H 211 H Calcium Phosphorus Magnesium Total Creatine Kinase CK-MB (CK-2) C-Reactive Protein Total Protein Albumin Triglycerides Arterial Blood Glucose Arterial Blood Ionized Calcium Salicylates Acetaminophen 08/19/20 08/20/20 08/20/20 21:40 05:00 05:15 WBC RBC Hgb Hct MCHC RDW Scott # (Auto) Seg Neutrophils % Seg Neutrophils # APTT D-Dimer ABG pH POC ABG pO2 72.1 L ABG pO2 ABG HCO3 ABG Base Excess ABG Hemoglobin ABG Sodium 132.4 L ABG Potassium 2.7 L ABG Chloride ABG Glucose 293 H Oxyhemoglobin Sodium Potassium Chloride Carbon Dioxide BUN Creatinine Glucose POC Glucose 252 H Calcium Phosphorus Magnesium Total Creatine Kinase CK-MB (CK-2) C-Reactive Protein Total Protein Albumin Triglycerides 260 H Arterial Blood Glucose 293 H Arterial Blood Ionized Calcium Salicylates Acetaminophen 08/20/20 08/20/20 08/20/20 07:06 07:45 12:20 WBC RBC Hgb Hct MCHC RDW Scott # (Auto) Seg Neutrophils % Seg Neutrophils # APTT D-Dimer ABG pH POC ABG pO2 ABG pO2 ABG HCO3 ABG Base Excess ABG Hemoglobin ABG Sodium ABG Potassium ABG Chloride ABG Glucose Oxyhemoglobin Sodium Potassium 2.9 L* Chloride Carbon Dioxide BUN Creatinine 0.6 L Glucose 304 H POC Glucose 238 H 303 H Calcium Phosphorus Magnesium Total Creatine Kinase CK-MB (CK-2) C-Reactive Protein Total Protein Albumin Triglycerides Arterial Blood Glucose Arterial Blood Ionized Calcium Salicylates Acetaminophen 08/20/20 08/21/20 08/21/20 17:49 00:18 04:05 WBC RBC 3.50 L Hgb 10.9 L Hct 31.3 L MCHC 35 H RDW Scott # (Auto) Seg Neutrophils % Seg Neutrophils # APTT D-Dimer ABG pH POC ABG pO2 ABG pO2 ABG HCO3 ABG Base Excess ABG Hemoglobin ABG Sodium ABG Potassium ABG Chloride ABG Glucose Oxyhemoglobin Sodium Potassium Chloride Carbon Dioxide BUN Creatinine Glucose POC Glucose 302 H 254 H Calcium Phosphorus Magnesium Total Creatine Kinase CK-MB (CK-2) C-Reactive Protein Total Protein Albumin Triglycerides Arterial Blood Glucose Arterial Blood Ionized Calcium Salicylates Acetaminophen 08/21/20 08/21/20 08/21/20 04:05 04:22 05:13 WBC RBC Hgb Hct MCHC RDW Scott # (Auto) Seg Neutrophils % Seg Neutrophils # APTT D-Dimer ABG pH POC ABG pO2 ABG pO2 ABG HCO3 ABG Base Excess ABG Hemoglobin 10.9 L ABG Sodium ABG Potassium ABG Chloride ABG Glucose Oxyhemoglobin Sodium Potassium 3.5 L D Chloride Carbon Dioxide BUN 24 H Creatinine 0.5 L Glucose 274 H POC Glucose 240 H Calcium Phosphorus Magnesium Total Creatine Kinase CK-MB (CK-2) C-Reactive Protein Total Protein Albumin Triglycerides Arterial Blood Glucose Arterial Blood Ionized Calcium Salicylates Acetaminophen 08/21/20 08/21/20 08/21/20 11:30 17:37 Unknown WBC RBC Hgb Hct MCHC RDW Scott # (Auto) Seg Neutrophils % Seg Neutrophils # APTT D-Dimer ABG pH POC ABG pO2 ABG pO2 ABG HCO3 ABG Base Excess ABG Hemoglobin ABG Sodium ABG Potassium ABG Chloride ABG Glucose Oxyhemoglobin Sodium Potassium Chloride Carbon Dioxide BUN Creatinine Glucose POC Glucose 296 H 272 H Calcium Phosphorus Magnesium 1.30 L Total Creatine Kinase CK-MB (CK-2) C-Reactive Protein Total Protein Albumin Triglycerides Arterial Blood Glucose Arterial Blood Ionized Calcium Salicylates Acetaminophen 08/22/20 08/22/20 08/22/20 00:42 04:00 04:00 WBC RBC Hgb 11.2 L Hct 33.1 L MCHC RDW Scott # (Auto) Seg Neutrophils % Seg Neutrophils # APTT D-Dimer ABG pH POC ABG pO2 ABG pO2 ABG HCO3 ABG Base Excess ABG Hemoglobin ABG Sodium ABG Potassium ABG Chloride ABG Glucose Oxyhemoglobin Sodium Potassium 3.4 L Chloride Carbon Dioxide BUN 23 H Creatinine 0.5 L Glucose 266 H POC Glucose 278 H Calcium Phosphorus Magnesium Total Creatine Kinase CK-MB (CK-2) C-Reactive Protein Total Protein Albumin Triglycerides Arterial Blood Glucose Arterial Blood Ionized Calcium Salicylates Acetaminophen 08/22/20 08/22/20 08/22/20 05:31 05:52 12:51 WBC RBC Hgb Hct MCHC RDW Scott # (Auto) Seg Neutrophils % Seg Neutrophils # APTT D-Dimer ABG pH POC ABG pO2 64.0 L ABG pO2 ABG HCO3 ABG Base Excess ABG Hemoglobin 11.9 L ABG Sodium ABG Potassium ABG Chloride ABG Glucose 238 H Oxyhemoglobin Sodium Potassium Chloride Carbon Dioxide BUN Creatinine Glucose POC Glucose 236 H 279 H Calcium Phosphorus Magnesium Total Creatine Kinase CK-MB (CK-2) C-Reactive Protein Total Protein Albumin Triglycerides Arterial Blood Glucose 238 H Arterial Blood Ionized Calcium Salicylates Acetaminophen 08/22/20 08/22/20 08/23/20 13:37 17:14 00:03 WBC RBC Hgb Hct MCHC RDW Scott # (Auto) Seg Neutrophils % Seg Neutrophils # APTT D-Dimer ABG pH POC ABG pO2 ABG pO2 ABG HCO3 ABG Base Excess ABG Hemoglobin ABG Sodium ABG Potassium ABG Chloride ABG Glucose Oxyhemoglobin Sodium Potassium Chloride Carbon Dioxide BUN Creatinine Glucose POC Glucose 287 H 312 H Calcium Phosphorus Magnesium 1.60 L Total Creatine Kinase CK-MB (CK-2) C-Reactive Protein Total Protein Albumin Triglycerides Arterial Blood Glucose Arterial Blood Ionized Calcium Salicylates Acetaminophen 08/23/20 08/23/20 08/23/20 04:29 04:29 05:27 WBC RBC 3.43 L Hgb 10.7 L Hct 30.9 L MCHC 35 H RDW Scott # (Auto) Seg Neutrophils % Seg Neutrophils # APTT D-Dimer ABG pH POC ABG pO2 ABG pO2 ABG HCO3 ABG Base Excess ABG Hemoglobin ABG Sodium ABG Potassium ABG Chloride ABG Glucose Oxyhemoglobin Sodium Potassium Chloride Carbon Dioxide BUN 26 H Creatinine 0.5 L Glucose 257 H POC Glucose 235 H Calcium Phosphorus Magnesium Total Creatine Kinase CK-MB (CK-2) C-Reactive Protein Total Protein Albumin Triglycerides Arterial Blood Glucose Arterial Blood Ionized Calcium Salicylates Acetaminophen Chest x-ray: pending Allied health notes reviewed: nursing
--- NOTE | 2020-08-23 16:35 | Ultrasound Report ---
Limited left antecubital fossa Ultrasound HISTORY: Left antecubital fossa abscess / inflamation. TECHNIQUE: Grayscale and color imaging performed. COMPARISON: None FINDINGS: There is considerable soft tissue swelling antecubital fossa with an irregular spiculated c ollection measuring 3.0 x 1.5 x 2.1 cm in maximal dimension. There is also mild surrounding hyperemia . IMPRESSION: Considerable generalized edema with more focal irregular collection as may be seen with a bscess formation. Signer Name: Sabas Ruiz MD Signed: 08/23/2020 4:30 PM Workstation Name: [id number]
[2020-08-23] MEDS: LORazepam 2 MG/ML VIAL IV PRN (16:36)
--- NOTE | 2020-08-23 17:52 | Cat Scan Report ---
CT LEFT ELBOW WITHOUT CONTRAST INDICATION / CLINICAL INFORMATION: eval for joint effusion, osteomyyelitis NO IV cont. TECHNIQUE: All CT scans at this location are performed using CT dose reduction for ALARA by means of automated e xposure control. COMPARISON: None available. FINDINGS: BONES: Partially visualized minimally displaced left rib fractures (series 303 image 12 and 28). No o sseous lesion. No significant sclerosis or osteolysis to suggest osteomyelitis. JOINT(S): No significant arthritis. No significant effusion. No intra-articular bodies. MUSCLES / TENDONS: No significant abnormality. SOFT TISSUES: Mild generalized superficial soft tissue swelling and edema posterior to the elbow. No focal fluid collection. ADDITIONAL FINDINGS: None. IMPRESSION: 1. Minimally displaced left rib fractures. 2. No acute fracture or dislocation of the left upper extremity. 3. No evidence of significant joint effusion or osteomyelitis. 4. Generalized soft tissue swelling and edema over the posterior elbow. Signer Name: Otilio Fuentes MD Signed: 08/23/2020 5:47 PM Workstation Name: [id number]
--- NOTE | 2020-08-23 18:09 | Cat Scan Report ---
CT ABDOMEN AND PELVIS WITHOUT CONTRAST INDICATION / CLINICAL INFORMATION: sepsis of unclear etiol eval for intrabdom source. TECHNIQUE: Axial CT images were obtained through the abdomen and pelvis without IV contrast. All CT scans at [facility] are performed using CT dose reduction for ALARA by means of automated exposure control. COMPARISON: None available. FINDINGS: LOWER CHEST: Large consolidation with air bronchograms noted in the left lower lobe. Coronary artery calcic ages are noted. Bilateral pleural effusions, left minimally greater than right. LIVER: No significant abnormality. GALLBLADDER: The gallbladder is completely decompressed. BILE DUCTS: No significant abnormality. PANCREAS: No significant abnormality. SPLEEN: No significant abnormality. ADRENALS: 1.6 cm right adrenal lesion demonstrates macroscopic fat, likely lipid rich adenoma. 1.4 cm left adrenal lesion measures 9 Hounsfield units and likely also represents adenoma. KIDNEY / URETER: Moderate nonspecific bilateral perinephric fat stranding. No evidence of calcite sto macario or hydronephrosis. STOMACH / SMALL BOWEL: NG tube noted with its tip terminating in the gastric lumen. No evidence of me chanical bowel structure. COLON: Abundant fecal material noted throughout the colon and rectal vault. Correlation for symptoms of constipation recommended. APPENDIX: No significant abnormality. PERITONEUM: No free fluid. No free air. No fluid collection. LYMPH NODES: Reactive appearing lymph nodes are noted scattered throughout the retroperitoneum. None of which are enlarged according to CT size criteria. AORTA / ARTERIES: Moderate atherosclerotic calcification without acute abnormality. IVC / VEINS: No significant abnormality. URINARY BLADDER: Urinary bladder is distended. REPRODUCTIVE ORGANS: No significant abnormality. ADDITIONAL FINDINGS: Fat-containing bilateral inguinal hernias. SKELETAL SYSTEM: Multilevel degenerative changes are noted throughout the visualized spine. There is significant irregularity and sclerosis at the L5-S1 level concerning for discitis. Mild anterior wedg ing is noted of the L3 vertebral body. Acute displaced rib fractures are noted on the left involving the ninth and 10th ribs laterally. IMPRESSION: 1. Left lung base consolidation. Infectious process leads the differential. 2. Bilateral pleural effusions, left minimally greater than right. 3. Nonspecific bilateral perinephric fat stranding with reactive appearing retroperitoneal lymph node s, and no calcified stones or hydronephrosis. Correlation with UA for infectious/inflammatory process is recommended. 4. Significant destructive endplate process at L5-S1 concerning for spondylodiscitis. Further workup with MR lumbar spine (with and without contrast) is recommended. 5. Acutely displaced rib fractures involving the left ninth and 10th ribs laterally. Signer Name: Otilio Fuentes MD Signed: 08/23/2020 6:05 PM Workstation Name: [id number]
--- NOTE | 2020-08-23 20:33 | Progress Note ---
Assessment and Plan The high probability of a clinically significant, sudden or life threatening deterioration of the [respiratory, neurologic and immunologic] system(s) required my full and direct attention, intervention and personal management. The aggregate critical care time was [38] minutes. This time is in addition to time spent performing reported procedures but includes the following: [x] Data Review and interpretation [x] Patient assessment and monitoring of vital signs [x] Documentation [x] Medication orders and management Toxic metabolic encephalopathy. Etiology unclear. Differential diagnosis of discitis and pneumonia. LP negative. Sepsis. Etiology is unknown. Continue IV antibiotics ID consult appreciated Acute hypoxic respiratory failure. Patient will be continued on mechanical ventilation. Pulmonary consulted. Patient currently on sedation with fentanyl drip. Hypertension. Resume antihypertensive medications Diabetes mellitus type 2. Continue Accu-Cheks and sliding scale insulin Hyperlipidemia. Statins. Diabetic foot ulcer. Wound care consultation. Subjective Date of service: 08/23/20 Principal diagnosis: Ac hypoxemic resp failure; Ac encephalopathy (toxic metabolic); Sev. Sepsis Interval history: This is a 55-year-old male with past medical history of tobacco abuse, hypertension, hyperlipidemia diabetes mellitus type 2 and peripheral vascular disease who reportedly was [place] at a [place] and noted to have lethargy and hyporesponsiveness. Patient was transferred to our facility and intubated by the ER physician due to airway compromise/airway protection. The patient was noted to have an ABG of pH 7.33/PCO2 36/PO2 105 on room air. The patient had most recent hospitalization June 2020 and treated for chest pain attributed to costochondritis and chronic diastolic heart failure. Also, patient has had multiple peripheral artery procedures most recently 4 months ago and treatment for left diabetic foot ulceration/infection. Patient previously had an x-ray negative for osteomyelitis but did have gas. The patient had a PICC line placed in February and was to receive 3 weeks of vancomycin IV. Patient now presents with as noted above altered mentation and acute hypoxic respiratory failure. No other history is obtained as the patient is intubated on mechanical ventilation. 08/16/2020. Wean sedation of fentanyl as tolerated. Patient currently on AC mode ventilation with rate of 20, tidal volume 450, FiO2 40% and PEEP of 6. Pulmonology following. ID and neurology consultations. 08/17/2020 Patient intubated, weaning in progress. 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 and textile screen printer consult appreciated 08/21/2020 Weaning in progress 08/22/2020 Weaning in progress 08/23/2020 Weaning in progress Discussed with family Objective - Exam Narrative Exam: Patient intubated - Constitutional Vitals: Vital Signs - 12hr 08/23/20 08/23/20 08/23/20 08:52 08:56 09:00 Temperature Pulse Rate 92 H 89 87 Pulse Rate [ From Monitor] Respiratory 21 20 Rate Blood Pressure 111/64 111/64 107/68 O2 Sat by Pulse 96 96 96 Oximetry 08/23/20 08/23/20 08/23/20 09:16 09:30 09:46 Temperature Pulse Rate 86 88 94 H Pulse Rate [ From Monitor] Respiratory 16 15 16 Rate Blood Pressure 107/68 112/65 112/65 O2 Sat by Pulse 96 95 97 Oximetry 08/23/20 08/23/20 08/23/20 10:00 10:16 10:30 Temperature Pulse Rate 95 H 92 H 99 H Pulse Rate [ From Monitor] Respiratory 14 13 12 Rate Blood Pressure 121/75 121/75 121/75 O2 Sat by Pulse 98 98 99 Oximetry 08/23/20 08/23/20 08/23/20 10:46 11:00 11:16 Temperature Pulse Rate 90 89 87 Pulse Rate [ From Monitor] Respiratory 12 12 13 Rate Blood Pressure 121/75 115/70 115/70 O2 Sat by Pulse 97 98 99 Oximetry 08/23/20 08/23/20 08/23/20 11:30 11:46 12:00 Temperature 98.5 F Pulse Rate 84 84 80 Pulse Rate [ 81 From Monitor] Respiratory 14 13 12 Rate Blood Pressure 111/69 111/69 111/67 O2 Sat by Pulse 99 99 98 Oximetry 08/23/20 08/23/20 08/23/20 12:16 12:30 12:46 Temperature Pulse Rate 80 78 83 Pulse Rate [ From Monitor] Respiratory 11 L 12 17 Rate Blood Pressure 111/67 111/66 111/66 O2 Sat by Pulse 98 99 98 Oximetry 08/23/20 08/23/20 08/23/20 13:09 13:15 13:22 Temperature Pulse Rate 85 84 86 Pulse Rate [ From Monitor] Respiratory 21 18 21 Rate Blood Pressure 117/71 O2 Sat by Pulse 99 99 100 Oximetry 08/23/20 08/23/20 08/23/20 13:30 13:45 14:01 Temperature Pulse Rate 86 86 86 Pulse Rate [ From Monitor] Respiratory 15 16 19 Rate Blood Pressure 123/70 123/70 123/70 O2 Sat by Pulse 98 99 98 Oximetry 08/23/20 08/23/20 08/23/20 14:15 14:31 14:45 Temperature Pulse Rate 96 H 86 88 Pulse Rate [ From Monitor] Respiratory 15 20 21 Rate Blood Pressure 123/70 123/70 123/70 O2 Sat by Pulse 98 97 97 Oximetry 08/23/20 08/23/20 08/23/20 15:01 15:15 15:30 Temperature Pulse Rate 93 H 85 89 Pulse Rate [ From Monitor] Respiratory 16 19 17 Rate Blood Pressure 123/70 141/86 139/78 O2 Sat by Pulse 96 99 Oximetry 08/23/20 08/23/20 08/23/20 15:45 16:00 16:15 Temperature 98.0 F Pulse Rate 95 H 96 H 90 Pulse Rate [ 96 H From Monitor] Respiratory 18 16 16 Rate Blood Pressure 139/78 148/82 148/82 O2 Sat by Pulse 98 98 Oximetry 08/23/20 08/23/20 08/23/20 16:30 17:15 17:17 Temperature Pulse Rate 97 H 90 Pulse Rate [ From Monitor] Respiratory 16 16 Rate Blood Pressure 129/81 129/81 O2 Sat by Pulse 97 95 95 Oximetry 08/23/20 08/23/20 08/23/20 17:30 17:45 18:00 Temperature Pulse Rate 102 H 88 95 H Pulse Rate [ From Monitor] Respiratory 17 16 17 Rate Blood Pressure 143/79 129/81 124/81 O2 Sat by Pulse 97 97 98 Oximetry 08/23/20 08/23/20 08/23/20 18:15 18:30 18:45 Temperature Pulse Rate 86 89 86 Pulse Rate [ From Monitor] Respiratory 13 13 15 Rate Blood Pressure 124/81 119/73 124/81 O2 Sat by Pulse 98 99 98 Oximetry 08/23/20 08/23/20 20:00 20:18 Temperature 99.0 F Pulse Rate 86 Pulse Rate [ From Monitor] Respiratory Rate Blood Pressure 127/82 O2 Sat by Pulse 98 Oximetry General appearance: Present: no acute distress, well-nourished - EENT Eyes: PERRL, EOM intact ENT: hearing intact, clear oral mucosa Ears: bilateral: normal - Neck Neck: supple, normal ROM - Respiratory Respiratory effort: normal Respiratory: bilateral: CTA - Breasts Breasts: normal - Cardiovascular Rhythm: regular Heart Sounds: Present: S1 & S2. Absent: gallop, rub Extremities: pulses intact, No edema, normal color, Full ROM - Gastrointestinal General gastrointestinal: Present: soft, non-tender, non-distended, normal bowel sounds - Genitourinary Male genitourinary: normal - Integumentary Integumentary: clear, warm, dry - Musculoskeletal Musculoskeletal: 1, strength equal bilaterally - Neurologic Neurologic: moves all extremities - Psychiatric Psychiatric: memory intact, appropriate mood/affect, intact judgment & insight - Labs CBC & Chem 7: 08/24/20 04:19 08/24/20 04:19 Labs: Abnormal lab results 08/15/20 08/23/20 08/23/20 Range/Units 10:20 00:03 04:29 RBC 3.43 L (3.65-5.03) M/mm3 Hgb 10.7 L (11.8-15.2) gm/dl Hct 30.9 L (35.5-45.6) % MCHC 35 H (32-34) % POC ABG pO2 110.3 H (83-108) mmHg ABG Hemoglobin 10.2 L (12.0-17.5) ABG Glucose (65-95) mg/dL Carboxyhemoglobin 1.7 H (0.5-1.5) BUN (9-20) mg/dL Creatinine (0.8-1.3) mg/dL Glucose (75-100) mg/dL POC Glucose 312 H (70-105) mg/dL Arterial Blood Glucose (65-95) mg/dL 08/23/20 08/23/20 08/23/20 Range/Units 04:29 05:27 12:36 RBC (3.65-5.03) M/mm3 Hgb (11.8-15.2) gm/dl Hct (35.5-45.6) % MCHC (32-34) % POC ABG pO2 (83-108) mmHg ABG Hemoglobin (12.0-17.5) ABG Glucose (65-95) mg/dL Carboxyhemoglobin (0.5-1.5) BUN 26 H (9-20) mg/dL Creatinine 0.5 L (0.8-1.3) mg/dL Glucose 257 H (75-100) mg/dL POC Glucose 235 H 282 H (70-105) mg/dL Arterial Blood Glucose (65-95) mg/dL 08/23/20 08/23/20 Range/Units 13:35 17:58 RBC (3.65-5.03) M/mm3 Hgb (11.8-15.2) gm/dl Hct (35.5-45.6) % MCHC (32-34) % POC ABG pO2 (83-108) mmHg ABG Hemoglobin (12.0-17.5) ABG Glucose 301 H (65-95) mg/dL Carboxyhemoglobin (0.5-1.5) BUN (9-20) mg/dL Creatinine (0.8-1.3) mg/dL Glucose (75-100) mg/dL POC Glucose 313 H (70-105) mg/dL Arterial Blood Glucose 301 H (65-95) mg/dL HEART Score - HEART Score Troponin: Troponin T < 0.010 ng/mL (0.00-0.029) 08/15/20 06:00
--- NOTE | 2020-08-23 20:33 | Progress Note ---
Assessment and Plan The high probability of a clinically significant, sudden or life threatening deterioration of the [respiratory, neurologic and immunologic] system(s) required my full and direct attention, intervention and personal management. The aggregate critical care time was [38] minutes. This time is in addition to time spent performing reported procedures but includes the following: [x] Data Review and interpretation [x] Patient assessment and monitoring of vital signs [x] Documentation [x] Medication orders and management Toxic metabolic encephalopathy. Etiology is unknown. 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 Patient started on vancomycin, Rocephin and acyclovir. LP completed by the emergency room physician and await studies. ID and neurology consultations. Sepsis. Etiology is unknown. Continue IV antibiotics ID consult appreciated Acute hypoxic respiratory failure. Patient will be continued on mechanical ventilation. Pulmonary consulted. Patient currently on sedation with fentanyl drip. Hypertension. Resume antihypertensive medications Diabetes mellitus type 2. Continue Accu-Cheks and sliding scale insulin Hyperlipidemia. Statins. Diabetic foot ulcer. Wound care consultation. Subjective Date of service: 08/22/20 Principal diagnosis: Ac hypoxemic resp failure; Ac encephalopathy (toxic met abolic); Sev. Sepsis Interval history: This is a 55-year-old male with past medical history of tobacco abuse, hypertension, hyperlipidemia diabetes mellitus type 2 and peripheral vascular disease who reportedly was found [place] a wholesale and noted to have lethargy and hyporesponsiveness. Patient was transferred to our facility and intubated by the ER physician due to airway compromise/airway protection. The patient was noted to have an ABG of pH 7.33/PCO2 36/PO2 105 on room air. The patient had most recent hospitalization June 2020 and treated for chest pain attributed to costochondritis and chronic diastolic heart failure. Also, patient has had multiple peripheral artery procedures most recently 4 months ago and treatment for left diabetic foot ulceration/infection. Patient previously had an x-ray negative for osteomyelitis but did have gas. The patient had a PICC line placed in February and was to receive 3 weeks of vancomycin IV. Patient now presents with as noted above altered mentation and acute hypoxic respiratory failure. No other history is obtained as the patient is intubated on mechanical ventilation. 08/16/2020. Wean sedation of fentanyl as tolerated. Patient currently on AC mode ventilation with rate of 20, tidal volume 450, FiO2 40% and PEEP of 6. Pulmonology following. ID and neurology consultations. 08/17/2020 Patient intubated, weaning in progress. 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 and cyber security consult appreciated 08/21/2020 Weaning in progress 08/22/2020 Weaning in progress Objective - Exam Narrative Exam: Patient intubated - Constitutional Vitals: Vital Signs - 12hr 08/23/20 08/23/20 08/23/20 08:52 08:56 09:00 Temperature Pulse Rate 92 H 89 87 Pulse Rate [ From Monitor] Respiratory 21 20 Rate Blood Pressure 111/64 111/64 107/68 O2 Sat by Pulse 96 96 96 Oximetry 08/23/20 08/23/20 08/23/20 09:16 09:30 09:46 Temperature Pulse Rate 86 88 94 H Pulse Rate [ From Monitor] Respiratory 16 15 16 Rate Blood Pressure 107/68 112/65 112/65 O2 Sat by Pulse 96 95 97 Oximetry 08/23/20 08/23/20 08/23/20 10:00 10:16 10:30 Temperature Pulse Rate 95 H 92 H 99 H Pulse Rate [ From Monitor] Respiratory 14 13 12 Rate Blood Pressure 121/75 121/75 121/75 O2 Sat by Pulse 98 98 99 Oximetry 08/23/20 08/23/20 08/23/20 10:46 11:00 11:16 Temperature Pulse Rate 90 89 87 Pulse Rate [ From Monitor] Respiratory 12 12 13 Rate Blood Pressure 121/75 115/70 115/70 O2 Sat by Pulse 97 98 99 Oximetry 08/23/20 08/23/20 08/23/20 11:30 11:46 12:00 Temperature 98.5 F Pulse Rate 84 84 80 Pulse Rate [ 81 From Monitor] Respiratory 14 13 12 Rate Blood Pressure 111/69 111/69 111/67 O2 Sat by Pulse 99 99 98 Oximetry 08/23/20 08/23/20 08/23/20 12:16 12:30 12:46 Temperature Pulse Rate 80 78 83 Pulse Rate [ From Monitor] Respiratory 11 L 12 17 Rate Blood Pressure 111/67 111/66 111/66 O2 Sat by Pulse 98 99 98 Oximetry 08/23/20 08/23/20 08/23/20 13:09 13:15 13:22 Temperature Pulse Rate 85 84 86 Pulse Rate [ From Monitor] Respiratory 21 18 21 Rate Blood Pressure 117/71 O2 Sat by Pulse 99 99 100 Oximetry 08/23/20 08/23/20 08/23/20 13:30 13:45 14:01 Temperature Pulse Rate 86 86 86 Pulse Rate [ From Monitor] Respiratory 15 16 19 Rate Blood Pressure 123/70 123/70 123/70 O2 Sat by Pulse 98 99 98 Oximetry 08/23/20 08/23/20 08/23/20 14:15 14:31 14:45 Temperature Pulse Rate 96 H 86 88 Pulse Rate [ From Monitor] Respiratory 15 20 21 Rate Blood Pressure 123/70 123/70 123/70 O2 Sat by Pulse 98 97 97 Oximetry 08/23/20 08/23/20 08/23/20 15:01 15:15 15:30 Temperature Pulse Rate 93 H 85 89 Pulse Rate [ From Monitor] Respiratory 16 19 17 Rate Blood Pressure 123/70 141/86 139/78 O2 Sat by Pulse 96 99 Oximetry 08/23/20 08/23/20 08/23/20 15:45 16:00 16:15 Temperature 98.0 F Pulse Rate 95 H 96 H 90 Pulse Rate [ 96 H From Monitor] Respiratory 18 16 16 Rate Blood Pressure 139/78 148/82 148/82 O2 Sat by Pulse 98 98 Oximetry 08/23/20 08/23/20 08/23/20 16:30 17:15 17:17 Temperature Pulse Rate 97 H 90 Pulse Rate [ From Monitor] Respiratory 16 16 Rate Blood Pressure 129/81 129/81 O2 Sat by Pulse 97 95 95 Oximetry 08/23/20 08/23/20 08/23/20 17:30 17:45 18:00 Temperature Pulse Rate 102 H 88 95 H Pulse Rate [ From Monitor] Respiratory 17 16 17 Rate Blood Pressure 143/79 129/81 124/81 O2 Sat by Pulse 97 97 98 Oximetry 08/23/20 08/23/20 08/23/20 18:15 18:30 18:45 Temperature Pulse Rate 86 89 86 Pulse Rate [ From Monitor] Respiratory 13 13 15 Rate Blood Pressure 124/81 119/73 124/81 O2 Sat by Pulse 98 99 98 Oximetry 08/23/20 08/23/20 20:00 20:18 Temperature 99.0 F Pulse Rate 86 Pulse Rate [ From Monitor] Respiratory Rate Blood Pressure 127/82 O2 Sat by Pulse 98 Oximetry General appearance: Present: no acute distress, well-nourished - EENT Eyes: PERRL, EOM intact ENT: hearing intact, clear oral mucosa Ears: bilateral: normal - Neck Neck: supple, normal ROM - Respiratory Respiratory effort: normal Respiratory: bilateral: CTA - Breasts Breasts: normal - Cardiovascular Heart rate: 78 Rhythm: regular Heart Sounds: Present: S1 & S2. Absent: gallop, rub Extremities: pulses intact, No edema, normal color - Gastrointestinal General gastrointestinal: Present: soft, non-tender, non-distended, normal bowel sounds - Genitourinary Male genitourinary: normal - Integumentary Integumentary: clear, warm, dry - Musculoskeletal Musculoskeletal: generalized weakness - Neurologic Neurologic: focal deficits, moves all extremities - Allied health notes Allied health notes reviewed: nursing, case management - Labs CBC & Chem 7: 08/24/20 04:19 08/24/20 04:19 Labs: Abnormal lab results 08/15/20 08/23/20 08/23/20 Range/Units 10: 00:03 04:29 RBC 3.43 L (3.65-5.03) M/mm3 Hgb 10.7 L (11.8-15.2) gm/dl Hct 30.9 L (35.5-45.6) % MCHC 35 H (32-34) % POC ABG pO2 110.3 H (83-108) mmHg ABG Hemoglobin 10.2 L (12.0-17.5) ABG Glucose (65-95) mg/dL Carboxyhemoglobin 1.7 H (0.5-1.5) BUN (9-20) mg/dL Creatinine (0.8-1.3) mg/dL Glucose (75-100) mg/dL POC Glucose 312 H (70-105) mg/dL Arterial Blood Glucose (65-95) mg/dL 08/23/20 08/23/20 08/23/20 Range/Units 04:29 05:27 12:36 RBC (3.65-5.03) M/mm3 Hgb (11.8-15.2) gm/dl Hct (35.5-45.6) % MCHC (32-34) % POC ABG pO2 (83-108) mmHg ABG Hemoglobin (12.0-17.5) ABG Glucose (65-95) mg/dL Carboxyhemoglobin (0.5-1.5) BUN 26 H (9-20) mg/dL Creatinine 0.5 L (0.8-1.3) mg/dL Glucose 257 H (75-100) mg/dL POC Glucose 235 H 282 H (70-105) mg/dL Arterial Blood Glucose (65-95) mg/dL 08/23/20 08/23/20 Range/Units 13:35 17:58 RBC (3.65-5.03) M/mm3 Hgb (11.8-15.2) gm/dl Hct (35.5-45.6) % MCHC (32-34) % POC ABG pO2 (83-108) mmHg ABG Hemoglobin (12.0-17.5) ABG Glucose 301 H (65-95) mg/dL Carboxyhemoglobin (0.5-1.5) BUN (9-20) mg/dL Creatinine (0.8-1.3) mg/dL Glucose (75-100) mg/dL POC Glucose 313 H (70-105) mg/dL Arterial Blood Glucose 301 H (65-95) mg/dL HEART Score - HEART Score Troponin: Troponin T < 0.010 ng/mL (0.00-0.029) 08/15/20 06:00
[2020-08-23] MEDS: INSULIN GLARGINE 100 UNITS/ML SUB-Q SCH (22:14)
[2020-08-23] MEDS: ENOXAPARIN 40 MG/0.4 ML INJ SUB-Q SCH (22:19)
[2020-08-24] MEDS: PHENobarbital 20 MG/5 ML ORAL LIQD FEEDTUBE SCH ×3 (05:34→21:47)
[2020-08-24 05:40] LABS: Basophils % (Auto) 0.4 % (0.0-1.8); Eosinophils # (Auto) 0.1 K/mm3 (0.0-0.4); Eosinophils % (Auto) 1.5 % (0.0-4.3); Hematocrit 30.9 % (35.5-45.6); Hemoglobin 10.4 gm/dl (11.8-15.2); Lymphocytes # (Auto) 1.4 K/mm3 (1.2-5.4); Lymphocytes % (Auto) 15.2 % (13.4-35.0); Mean Corpuscular HGB Conc 34 % (32-34); Mean Corpuscular Volume 91 fl (84-94); Monocytes # (Auto) 0.8 K/mm3 (0.0-0.8); Monocytes % (Auto) 9.1 % (0.0-7.3); Platelet Count 204 K/mm3 (140-440); Red Cell Distribution Width 14.7 % (13.2-15.2)
[2020-08-24 06:01] LABS: Alanine Aminotransferase 18 units/L (7-56); Albumin 2.6 g/dL (3.9-5); Blood Urea Nitrogen 22 mg/dL (9-20); Calcium 9.8 mg/dL (8.4-10.2); Hemolysis Index 2
[2020-08-24] MEDS: INSULIN LISPRO 100 UNIT/ML VIAL 3 mL SUB-Q SCH ×4 (06:07→18:15)
[2020-08-24 06:09] LABS: BUN/Creatinine Ratio 44
[2020-08-24] MEDS: LORazepam 2 MG/ML VIAL IV PRN ×2 (06:14→10:03)
--- NOTE | 2020-08-24 08:27 | Progress Note ---
Assessment and Plan Cultures: 08/15/2020 blood cultures no growth today 08/15/2020 CSF culture no growth today 11/15/2019 urine culture no growth Assessment: 55 years old male with history of diabetes mellitus, hypertension, peripheral vascular disease, alcohol abuse, tobacco abuse, left foot diabetic ulceration with an abscess secondary to MRSA in February 2020, admitted on 08/16/2020 due to altered mental status lethargy unresponsive: #Severe sepsis with septic shock: Off pressors, leukocytosis resolved, remains low-grade fever. Source unclear, possible right elbow infection, pneumonia, discitis?, pyelonephritis. Chest x-ray possible right lower lobe infiltrate. Urinalysis negative. SARS-CoV-2 PCR negative. Patient underwent lumbar puncture in the emergency room, ED provider kindly contacted me with results - WBCs 10, RBCs 381. This is not consistent with meningitis. Procalcitonin normal. #Possible pneumonia: Repeat CXR mild infiltrates. CT with LLL consolidation. Sputum culture grew MSSA ? colonizer vs real (no wbc in resp specimen) #?Pyelonephritis: CT with bilateral fat perinephric fat stranding and retroperitoneal LNs however UA negative. #Acute hypoxemic respiratory failure: Patient intubated #Right elbow ulcer abscess/ cellulitis: CT with no abscess or effusion or osteomyelitis #Acute encephalopathy: Likely secondary to sepsis versus metabolic. ?drugs. 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 CSF with no pleocytosis but high protein. #Peripheral vascular disease: Very cold feet bilaterally. Arterial Doppler without any evidence of PAD?. Previous arterial Doppler abnormal. #Multiple skin tears in left hand and left lower extremities: Likely secondary to peripheral vascular disease #Possible L5-S1 discitis seen on CT: ? Recommendations: -Obtain lumbar MRI w/o contrast eval for discitis/epidural abscess - ordered -If confirmation of lumbar discitis will restart vancomycin and ceftriaxone for 6 weeks -Completed vancomycin and cefepime on 08/22 -If there is evidence of elbow septic join then IV abx should be extended -Wound care consultation Will follow. Pastora Gongora MD Infectious Diseases [employer] [facility] M [phone] O [phone] Subjective Date of service: 08/24/20 Principal diagnosis: Ac hypoxemic resp failure; Ac encephalopathy (toxic metabolic); Sev. Sepsis Interval history: Patient remains intubated, sedated, no fever for 48h Objective - Exam Narrative Exam: General appearance: Sedated in no acute distress intubated Eyes: anicteric sclerae, moist conjunctivae; no lid-lag; PERRLA HENT: Atraumatic; oropharynx clear limited endotracheal tube in place Lungs: Clear to auscultation bilaterally CV: RRR no murmur Abdomen: Soft, +tender to palpation diffusely Extremities: Left foot partial amputation healed. Right elbow with an open wound, deep cord with the residents Skin: Multiple lower extremity skin tear. Psych: Sedated Neuro: Sedated - - Constitutional Vitals: Vital Signs Temp Pulse Resp BP Pulse Ox 99.1 F 106 H 21 145/77 99 08/24/20 04:00 08/24/20 06:31 08/24/20 06:31 08/24/20 06:31 08/24/20 06:31 Temperature -Last 24 Hours Temperature 99.1 F Temperature 99.3 F Temperature 99.0 F Temperature 98.0 F Temperature 98.5 F Temperature 98.5 F - Labs CBC & Chem 7: 08/24/20 04:19 08/24/20 04:19 Labs: Abnormal lab results 08/15/20 08/23/20 08/23/20 Range/Units 10:20 12:36 13:35 RBC (3.65-5.03) M/mm3 Hgb (11.8-15.2) gm/dl Hct (35.5-45.6) % [place] % (Auto) (0.0-7.3) % Seg Neutrophils % (40.0-70.0) % POC ABG pO2 110.3 H (83-108) mmHg ABG Hemoglobin 10.2 L (12.0-17.5) ABG Glucose 301 H (65-95) mg/dL Carboxyhemoglobin 1.7 H (0.5-1.5) BUN (9-20) mg/dL Creatinine (0.8-1.3) mg/dL Glucose (75-100) mg/dL POC Glucose 282 H (70-105) mg/dL Alkaline Phosphatase (35-129) units/L Total Protein (6.3-8.2) g/dL Albumin (3.9-5) g/dL Arterial Blood Glucose 301 H (65-95) mg/dL 11/02/0608/23/20 08/23/20 Range/Units 17:58 22:34 23:48 RBC (3.65-5.03) M/mm3 Hgb (11.8-15.2) gm/dl Hct (35.5-45.6) % [place] % (Auto) (0.0-7.3) % Seg Neutrophils % (40.0-70.0) % POC ABG pO2 (83-108) mmHg ABG Hemoglobin (12.0-17.5) ABG Glucose (65-95) mg/dL Carboxyhemoglobin (0.5-1.5) BUN (9-20) mg/dL Creatinine (0.8-1.3) mg/dL Glucose (75-100) mg/dL POC Glucose 313 H 271 H 298 H (70-105) mg/dL Alkaline Phosphatase (35-129) units/L Total Protein (6.3-8.2) g/dL Albumin (3.9-5) g/dL Arterial Blood Glucose (65-95) mg/dL 08/24/20 08/24/20 08/24/20 Range/Units 04:19 04:19 06:19 RBC 3.40 L (3.65-5.03) M/mm3 Hgb 10.4 L (11.8-15.2) gm/dl Hct 30.9 L (35.5-45.6) % [place] % (Auto) 9.1 H (0.0-7.3) % Seg Neutrophils % 73.8 H (40.0-70.0) % POC ABG pO2 (83-108) mmHg ABG Hemoglobin (12.0-17.5) ABG Glucose (65-95) mg/dL Carboxyhemoglobin (0.5-1.5) BUN 22 H (9-20) mg/dL Creatinine 0.5 L (0.8-1.3) mg/dL Glucose 296 H (75-100) mg/dL POC Glucose 328 H (70-105) mg/dL Alkaline Phosphatase 147 H (35-129) units/L Total Protein 5.9 L (6.3-8.2) g/dL Albumin 2.6 L (3.9-5) g/dL Arterial Blood Glucose (65-95) mg/dL
[2020-08-24] MEDS ORDERED: INSULIN GLARGINE 100 UNITS/ML SUB-Q ONE (09:00)
[2020-08-24] MEDS: fentaNYL DRIP Premix 2,000 MCG/100 ML BAG IV SCH ×2 (09:10→14:33)
[2020-08-24] MEDS: FAMOTIDINE 20 MG TAB PO SCH ×2 (09:40→21:43)
[2020-08-24] MEDS: QUEtiapine 200 MG TAB PO SCH (09:40)
--- NOTE | 2020-08-24 14:31 | Progress Note ---
Assessment and Plan Acute hypoxemic respiratory failure on MVS Acute encephalopathy, presumably toxic metabolic. Severe sepsis with shock. History of diabetes. History of a cerebrovascular accident with persistent left hemiparesis. History of alcohol abuse. Hypertension. Chronic pain syndrome. History of deep venous thrombosis. - increased Seroquel to 300 mg po bid re: agitation - CT's do not demonstrate significant abscess or osteomyelitis - continue care as below otherwise; - daily SAT and SBT assessment as tolerated - get US of left antecubital fossa in lieu of CT with contrast (unable to reach family) - tentative extubation in am if does well with SBT - continue to wean supplemental oxygen for target O2 sat's > 92% acutely - VAP bundle addressed - continue lung protective strategies - continue bronchodilators with pulmonary hygiene per RT - wean per pulmonary driven protocols otherwise - accuchecks with glycemic control per SSI (While critically ill target blood glucose of 140-180 mg/dL; avoid hypoglycemia) - sedation prn for target RASS 0 to -1 - avoid nephrotoxins, renally dose all medications - completed AB's per ID rec's - prn analgesia per CPOT score - Maintenance of sleep-wake cycle, avoid delirium - continue enteral nutritional support at goal rate as tolerated - G.I. & VTE prophylaxis - PT/OT/ROM exercises - continue mobility protocols for pressure ulcer prophylaxis - Monitor hemodynamics closely - continue other care per attending / other consultants - discharge planning ongoing concurrently .... Re-evaluate in am & prn CONDITION: CRITICAL PROGNOSIS: GUARDED CODE STATUS: FULL CODE The high probability of a clinically significant, sudden or life-threatening deterioration of the [respiratory, cardiovascular & neurologic] system(s) required my full and direct attention, intervention and personal management. The aggregate critical care time was [35] minutes without overlap. Time includes spent on; [x] Data Review and interpretation [x] Patient assessment and monitoring of vital signs [x] Documentation [x] Medication orders and management Subjective Date of service: 08/24/20 Principal diagnosis: Ac hypoxemic resp failure; Ac encephalopathy (toxic metabolic); Sev. Sepsis Interval history: Patient is seen today for: Acute hypoxemic respiratory failure; Acute encepha lopathy (toxic metabolic); Severe sepsis with shock; DM II; CVA; alcohol abuse; HTN; DVT Seen and examined at bedside; 24hour events reviewed; nursing and respiratory care staff consulted; no adverse overnight events reported to me; resting in bed; agitated earlier today and on fentanyl drip for sedation now; failed SBT; no emesis or overt aspiration; afebrile Objective Vital Signs - 12hr 08/24/20 08/24/20 08/24/20 02:45 03:00 03:15 Temperature Pulse Rate 97 H 98 H 101 H Pulse Rate [ From Monitor] Respiratory 19 15 17 Rate Blood Pressure 147/83 145/78 145/78 O2 Sat by Pulse 97 96 97 Oximetry 08/24/20 08/24/20 08/24/20 03:30 03:45 04:00 Temperature 99.1 F Pulse Rate 99 H 99 H 103 H Pulse Rate [ 96 H From Monitor] Respiratory 17 18 19 Rate Blood Pressure 153/86 153/86 166/86 O2 Sat by Pulse 98 97 98 Oximetry 08/24/20 08/24/20 08/24/20 04:15 04:30 04:45 Temperature Pulse Rate 102 H 98 H 97 H Pulse Rate [ From Monitor] Respiratory 17 19 20 Rate Blood Pressure 166/86 142/81 142/81 O2 Sat by Pulse 98 97 98 Oximetry 08/24/20 08/24/20 08/24/20 05:00 05:15 05:30 Temperature Pulse Rate 100 H 99 H 95 H Pulse Rate [ From Monitor] Respiratory 19 17 15 Rate Blood Pressure 152/86 152/86 162/83 O2 Sat by Pulse 99 98 98 Oximetry 08/24/20 08/24/20 08/24/20 05:45 05:54 06:00 Temperature Pulse Rate 99 H 99 H 100 H Pulse Rate [ From Monitor] Respiratory 25 H 20 Rate Blood Pressure 162/83 162/83 137/78 O2 Sat by Pulse 99 99 100 Oximetry 08/24/20 08/24/20 08/24/20 06:15 06:31 06:45 Temperature Pulse Rate 114 H 106 H 102 H Pulse Rate [ From Monitor] Respiratory 20 21 24 Rate Blood Pressure 137/78 145/77 145/77 O2 Sat by Pulse 99 99 98 Oximetry 08/24/20 08/24/20 08/24/20 07:00 07:15 07:31 Temperature Pulse Rate 100 H 95 H 96 H Pulse Rate [ From Monitor] Respiratory 19 17 13 Rate Blood Pressure 137/76 137/76 142/78 O2 Sat by Pulse 98 100 98 Oximetry 08/24/20 08/24/20 08/24/20 07:45 08:00 08:15 Temperature 98.9 F Pulse Rate 95 H 94 H 98 H Pulse Rate [ 94 H From Monitor] Respiratory 19 18 12 Rate Blood Pressure 142/78 150/85 150/85 O2 Sat by Pulse 99 96 99 Oximetry 08/24/20 08/24/20 08/24/20 08:31 08:45 09:00 Temperature Pulse Rate 98 H 108 H 102 H Pulse Rate [ From Monitor] Respiratory 15 27 H 20 Rate Blood Pressure 136/88 136/88 150/84 O2 Sat by Pulse 99 100 100 Oximetry 08/24/20 08/24/20 08/24/20 09:15 09:30 09:45 Temperature Pulse Rate 117 H 108 H 110 H Pulse Rate [ From Monitor] Respiratory 23 18 25 H Rate Blood Pressure 150/84 160/87 160/87 O2 Sat by Pulse 98 100 97 Oximetry 08/24/20 08/24/20 08/24/20 10:00 10:15 10:31 Temperature Pulse Rate 112 H 125 H 123 H Pulse Rate [ From Monitor] Respiratory 23 16 23 Rate Blood Pressure 151/81 151/81 151/82 O2 Sat by Pulse 96 97 96 Oximetry 08/24/20 08/24/20 08/24/20 10:45 11:00 11:15 Temperature Pulse Rate 123 H 116 H 109 H Pulse Rate [ From Monitor] Respiratory 19 20 14 Rate Blood Pressure 151/82 147/81 151/82 O2 Sat by Pulse 95 95 97 Oximetry 08/24/20 08/24/20 08/24/20 11:30 11:45 12:00 Temperature 98.7 F Pulse Rate 113 H 108 H 94 H Pulse Rate [ 110 H From Monitor] Respiratory 22 22 19 Rate Blood Pressure 139/75 139/75 117/70 O2 Sat by Pulse 98 98 98 Oximetry 08/24/20 08/24/20 08/24/20 12:15 12:30 12:45 Temperature Pulse Rate 109 H 105 H 98 H Pulse Rate [ From Monitor] Respiratory 20 16 20 Rate Blood Pressure 138/76 132/76 132/76 O2 Sat by Pulse 97 98 98 Oximetry 08/24/20 08/24/20 08/24/20 13:01 13:15 13:30 Temperature Pulse Rate 97 H 94 H 92 H Pulse Rate [ From Monitor] Respiratory 19 16 15 Rate Blood Pressure 117/70 117/70 116/69 O2 Sat by Pulse 98 98 98 Oximetry 08/24/20 13:45 Temperature Pulse Rate 91 H Pulse Rate [ From Monitor] Respiratory 17 Rate Blood Pressure 117/70 O2 Sat by Pulse 98 Oximetry Constitutional: no acute distress, other (middle aged male with mildly increased respiratory effort at rest on MVS) Eyes: non-icteric ENT: oropharynx moist, other (ETT 23 cm [place]) Neck: supple, no lymphadenopathy, no JVD Effort: mildly labored Ascultation: Bilateral: diminished breath sounds, rhonchi (improved) Percussion: Bilateral: not dull Cardiovascular: regular rate and rhythm Gastrointestinal: normoactive bowel sounds, soft, non-tender, non-distended (protuberant) Integumentary: normal Extremities: no cyanosis, no edema, pink and warm, pulses normal, no ischemia or petechiae Neurologic: non-focal exam (grossly), pupils equal and round, motor strength normal and Psychiatric: mood appropriate, affect normal CBC and BMP: 08/24/20 04:19 08/24/20 04:19 ABG, PT/INR, D-dimer: ABG ABG pH 7.395 (7.320-7.450) 08/23/20 13:35 POC ABG pCO2 39.1 mmHg (32.0-48.0) 08/23/20 13:35 ABG pCO2 35.2 mm Hg 08/21/20 04:22 POC ABG pO2 94.6 mmHg (83-108) 08/23/20 13:35 ABG pO2 89.9 mm Hg (80.0-90.0) 08/21/20 04:22 POC ABG HCO3 23.4 08/23/20 13:35 ABG O2 Saturation 97.3 % (95.0-99.0) 08/21/20 04:22 PT/INR, D-dimer PT 13.9 Sec. (12.2-14.9) 08/16/20 Unknown INR 1.06 (0.87-1.13) 08/16/20 Unknown D-Dimer 882.17 ng/mlDDU (0-234) H 08/16/20 14:45 D-Dimer 925.88 ng/mlDDU (0-234) H 08/16/20 14:45 Abnormal lab findings: Abnormal Labs 08/15/20 08/15/20 08/15/20 06:00 07:32 07:32 WBC RBC Hgb Hct MCHC RDW [place] % (Auto) [place] # (Auto) Seg Neutrophils % Seg Neutrophils # APTT D-Dimer ABG pH POC ABG pO2 ABG pO2 ABG HCO3 ABG Base Excess ABG Hemoglobin ABG Sodium ABG Potassium ABG Chloride ABG Glucose Oxyhemoglobin Carboxyhemoglobin Sodium 132 L Potassium Chloride 94.3 L Carbon Dioxide 19 L BUN 45 H Creatinine 1.6 H Glucose 285 H POC Glucose Calcium 10.4 H Phosphorus Magnesium Alkaline Phosphatase Total Creatine Kinase 446 H CK-MB (CK-2) 8.8 H C-Reactive Protein Total Protein Albumin 3.7 L Triglycerides Arterial Blood Glucose Arterial Blood Ionized Calcium Salicylates < 0.3 L Acetaminophen < 5.0 L 08/15/20 08/15/20 08/15/20 10:20 10:45 21:10 WBC RBC Hgb Hct MCHC RDW [place] % (Auto) [place] # (Auto) Seg Neutrophils % Seg Neutrophils # APTT D-Dimer ABG pH 7.338 L POC ABG pO2 110.3 H ABG pO2 105.9 H ABG HCO3 19.2 L ABG Base Excess -5.9 L ABG Hemoglobin 10.2 L 12.3 L ABG Sodium ABG Potassium ABG Chloride ABG Glucose Oxyhemoglobin Carboxyhemoglobin 1.7 H Sodium Potassium Chloride Carbon Dioxide BUN Creatinine Glucose 297 H POC Glucose Calcium Phosphorus Magnesium Alkaline Phosphatase Total Creatine Kinase CK-MB (CK-2) C-Reactive Protein Total Protein Albumin Triglycerides Arterial Blood Glucose Arterial Blood Ionized Calcium Salicylates Acetaminophen 08/16/20 08/16/20 08/16/20 04:30 08:59 14:45 WBC RBC Hgb Hct 35.3 L MCHC RDW 15.7 H [place] % (Auto) [place] # (Auto) Seg Neutrophils % Seg Neutrophils # APTT D-Dimer ABG pH 7.345 L POC ABG pO2 ABG pO2 134.5 H ABG HCO3 ABG Base Excess -5.2 L ABG Hemoglobin 12.1 L ABG Sodium ABG Potassium ABG Chloride ABG Glucose Oxyhemoglobin Carboxyhemoglobin Sodium Potassium 3.4 L Chloride 109.0 H Carbon Dioxide BUN 32 H Creatinine Glucose 186 H POC Glucose Calcium Phosphorus Magnesium Alkaline Phosphatase Total Creatine Kinase CK-MB (CK-2) C-Reactive Protein Total Protein 6.0 L Albumin 3.1 L Triglycerides Arterial Blood Glucose Arterial Blood Ionized Calcium Salicylates Acetaminophen 08/16/20 08/16/20 08/16/20 14:45 14:45 14:45 WBC RBC Hgb Hct MCHC RDW [place] % (Auto) [place] # (Auto) Seg Neutrophils % Seg Neutrophils # APTT D-Dimer 925.88 H 882.17 H ABG pH POC ABG pO2 ABG pO2 ABG HCO3 ABG Base Excess ABG Hemoglobin ABG Sodium ABG Potassium ABG Chloride ABG Glucose Oxyhemoglobin Carboxyhemoglobin Sodium Potassium Chloride Carbon Dioxide BUN Creatinine Glucose POC Glucose Calcium Phosphorus 1.50 L Magnesium 1.60 L Alkaline Phosphatase Total Creatine Kinase CK-MB (CK-2) C-Reactive Protein Total Protein Albumin Triglycerides Arterial Blood Glucose Arterial Blood Ionized Calcium Salicylates Acetaminophen 08/16/20 08/16/20 08/16/20 14:45 17:42 Unknown WBC 16.7 H RBC Hgb Hct MCHC RDW [place] % (Auto) [place] # (Auto) 1.0 H Seg Neutrophils % 79.9 H Seg Neutrophils # 13.4 H APTT D-Dimer ABG pH POC ABG pO2 ABG pO2 ABG HCO3 ABG Base Excess ABG Hemoglobin ABG Sodium ABG Potassium ABG Chloride ABG Glucose Oxyhemoglobin Carboxyhemoglobin Sodium Potassium Chloride Carbon Dioxide BUN Creatinine Glucose POC Glucose 169 H Calcium Phosphorus Magnesium Alkaline Phosphatase Total Creatine Kinase CK-MB (CK-2) C-Reactive Protein 2.70 H Total Protein Albumin Triglycerides Arterial Blood Glucose Arterial Blood Ionized Calcium Salicylates Acetaminophen 08/16/20 08/16/20 08/17/20 Unknown Unknown 00:06 WBC RBC Hgb Hct MCHC RDW [place] % (Auto) [place] # (Auto) Seg Neutrophils % Seg Neutrophils # APTT 23.9 L D-Dimer ABG pH POC ABG pO2 ABG pO2 ABG HCO3 ABG Base Excess ABG Hemoglobin ABG Sodium ABG Potassium ABG Chloride ABG Glucose Oxyhemoglobin Carboxyhemoglobin Sodium Potassium Chloride Carbon Dioxide 17 L BUN 33 H Creatinine Glucose 233 H POC Glucose 125 H Calcium Phosphorus Magnesium Alkaline Phosphatase Total Creatine Kinase CK-MB (CK-2) C-Reactive Protein Total Protein Albumin Triglycerides Arterial Blood Glucose Arterial Blood Ionized Calcium Salicylates Acetaminophen 08/17/20 08/17/20 08/17/20 03:40 05:52 12:30 WBC RBC Hgb Hct MCHC RDW [place] % (Auto) [place] # (Auto) Seg Neutrophils % Seg Neutrophils # APTT D-Dimer ABG pH POC ABG pO2 60.8 L ABG pO2 ABG HCO3 ABG Base Excess ABG Hemoglobin ABG Sodium ABG Potassium ABG Chloride 115.0 H ABG Glucose 139 H Oxyhemoglobin Carboxyhemoglobin Sodium Potassium Chloride Carbon Dioxide BUN Creatinine Glucose POC Glucose 139 H 133 H Calcium Phosphorus Magnesium Alkaline Phosphatase Total Creatine Kinase CK-MB (CK-2) C-Reactive Protein Total Protein Albumin Triglycerides Arterial Blood Glucose 139 H Arterial Blood Ionized Calcium 5.5 H Salicylates Acetaminophen 08/17/20 08/18/20 08/18/20 17:47 00:08 04:00 WBC RBC Hgb Hct MCHC RDW [place] % (Auto) [place] # (Auto) Seg Neutrophils % Seg Neutrophils # APTT D-Dimer ABG pH 7.315 L POC ABG pO2 ABG pO2 75.1 L ABG HCO3 ABG Base Excess -4.3 L ABG Hemoglobin 11.9 L ABG Sodium ABG Potassium ABG Chloride ABG Glucose Oxyhemoglobin 93.7 L Carboxyhemoglobin Sodium Potassium Chloride Carbon Dioxide BUN Creatinine Glucose POC Glucose 157 H 129 H Calcium Phosphorus Magnesium Alkaline Phosphatase Total Creatine Kinase CK-MB (CK-2) C-Reactive Protein Total Protein Albumin Triglycerides Arterial Blood Glucose Arterial Blood Ionized Calcium Salicylates Acetaminophen 08/18/20 08/18/20 08/19/20 05:31 12:26 00:02 WBC RBC Hgb Hct MCHC RDW [place] % (Auto) [place] # (Auto) Seg Neutrophils % Seg Neutrophils # APTT D-Dimer ABG pH POC ABG pO2 ABG pO2 ABG HCO3 ABG Base Excess ABG Hemoglobin ABG Sodium ABG Potassium ABG Chloride ABG Glucose Oxyhemoglobin Carboxyhemoglobin Sodium Potassium Chloride Carbon Dioxide BUN Creatinine Glucose POC Glucose 114 H 112 H 107 H Calcium Phosphorus Magnesium Alkaline Phosphatase Total Creatine Kinase CK-MB (CK-2) C-Reactive Protein Total Protein Albumin Triglycerides Arterial Blood Glucose Arterial Blood Ionized Calcium Salicylates Acetaminophen 08/19/20 08/19/20 08/19/20 04:19 05:34 12:48 WBC RBC Hgb Hct MCHC RDW [place] % (Auto) [place] # (Auto) Seg Neutrophils % Seg Neutrophils # APTT D-Dimer ABG pH 7.451 H POC ABG pO2 172.9 H ABG pO2 ABG HCO3 ABG Base Excess ABG Hemoglobin ABG Sodium ABG Potassium ABG Chloride ABG Glucose Oxyhemoglobin Carboxyhemoglobin Sodium Potassium Chloride Carbon Dioxide BUN Creatinine Glucose POC Glucose 114 H 198 H Calcium Phosphorus Magnesium Alkaline Phosphatase Total Creatine Kinase CK-MB (CK-2) C-Reactive Protein Total Protein Albumin Triglycerides Arterial Blood Glucose Arterial Blood Ionized Calcium Salicylates Acetaminophen 08/19/20 08/19/20 08/20/20 18:01 21:40 05:00 WBC RBC Hgb Hct MCHC RDW [place] % (Auto) [place] # (Auto) Seg Neutrophils % Seg Neutrophils # APTT D-Dimer ABG pH POC ABG pO2 72.1 L ABG pO2 ABG HCO3 ABG Base Excess ABG Hemoglobin ABG Sodium 132.4 L ABG Potassium 2.7 L ABG Chloride ABG Glucose 293 H Oxyhemoglobin Carboxyhemoglobin Sodium Potassium Chloride Carbon Dioxide BUN Creatinine Glucose POC Glucose 211 H 252 H Calcium Phosphorus Magnesium Alkaline Phosphatase Total Creatine Kinase CK-MB (CK-2) C-Reactive Protein Total Protein Albumin Triglycerides Arterial Blood Glucose 293 H Arterial Blood Ionized Calcium Salicylates Acetaminophen 08/20/20 08/20/20 08/20/20 05:15 07:06 07:45 WBC RBC Hgb Hct MCHC RDW [place] % (Auto) [place] # (Auto) Seg Neutrophils % Seg Neutrophils # APTT D-Dimer ABG pH POC ABG pO2 ABG pO2 ABG HCO3 ABG Base Excess ABG Hemoglobin ABG Sodium ABG Potassium ABG Chloride ABG Glucose Oxyhemoglobin Carboxyhemoglobin Sodium Potassium 2.9 L* Chloride Carbon Dioxide BUN Creatinine 0.6 L Glucose 304 H POC Glucose 238 H Calcium Phosphorus Magnesium Alkaline Phosphatase Total Creatine Kinase CK-MB (CK-2) C-Reactive Protein Total Protein Albumin Triglycerides 260 H Arterial Blood Glucose Arterial Blood Ionized Calcium Salicylates Acetaminophen 08/20/20 08/20/20 08/21/20 12:20 17:49 00:18 WBC RBC Hgb Hct MCHC RDW [place] % (Auto) [place] # (Auto) Seg Neutrophils % Seg Neutrophils # APTT D-Dimer ABG pH POC ABG pO2 ABG pO2 ABG HCO3 ABG Base Excess ABG Hemoglobin ABG Sodium ABG Potassium ABG Chloride ABG Glucose Oxyhemoglobin Carboxyhemoglobin Sodium Potassium Chloride Carbon Dioxide BUN Creatinine Glucose POC Glucose 303 H 302 H 254 H Calcium Phosphorus Magnesium Alkaline Phosphatase Total Creatine Kinase CK-MB (CK-2) C-Reactive Protein Total Protein Albumin Triglycerides Arterial Blood Glucose Arterial Blood Ionized Calcium Salicylates Acetaminophen 08/21/20 08/21/20 08/21/20 04:05 04:05 04:22 WBC RBC 3.50 L Hgb 10.9 L Hct 31.3 L MCHC 35 H RDW [place] % (Auto) [place] # (Auto) Seg Neutrophils % Seg Neutrophils # APTT D-Dimer ABG pH POC ABG pO2 ABG pO2 ABG HCO3 ABG Base Excess ABG Hemoglobin 10.9 L ABG Sodium ABG Potassium ABG Chloride ABG Glucose Oxyhemoglobin Carboxyhemoglobin Sodium Potassium 3.5 L D Chloride Carbon Dioxide BUN 24 H Creatinine 0.5 L Glucose 274 H POC Glucose Calcium Phosphorus Magnesium Alkaline Phosphatase Total Creatine Kinase CK-MB (CK-2) C-Reactive Protein Total Protein Albumin Triglycerides Arterial Blood Glucose Arterial Blood Ionized Calcium Salicylates Acetaminophen 08/21/20 08/21/20 08/21/20 05:13 11:30 17:37 WBC RBC Hgb Hct MCHC RDW [place] % (Auto) [place] # (Auto) Seg Neutrophils % Seg Neutrophils # APTT D-Dimer ABG pH POC ABG pO2 ABG pO2 ABG HCO3 ABG Base Excess ABG Hemoglobin ABG Sodium ABG Potassium ABG Chloride ABG Glucose Oxyhemoglobin Carboxyhemoglobin Sodium Potassium Chloride Carbon Dioxide BUN Creatinine Glucose POC Glucose 240 H 296 H 272 H Calcium Phosphorus Magnesium Alkaline Phosphatase Total Creatine Kinase CK-MB (CK-2) C-Reactive Protein Total Protein Albumin Triglycerides Arterial Blood Glucose Arterial Blood Ionized Calcium Salicylates Acetaminophen 08/21/20 08/22/20 08/22/20 Unknown 00:42 04:00 WBC RBC Hgb 11.2 L Hct 33.1 L MCHC RDW [place] % (Auto) [place] # (Auto) Seg Neutrophils % Seg Neutrophils # APTT D-Dimer ABG pH POC ABG pO2 ABG pO2 ABG HCO3 ABG Base Excess ABG Hemoglobin ABG Sodium ABG Potassium ABG Chloride ABG Glucose Oxyhemoglobin Carboxyhemoglobin Sodium Potassium Chloride Carbon Dioxide BUN Creatinine Glucose POC Glucose 278 H Calcium Phosphorus Magnesium 1.30 L Alkaline Phosphatase Total Creatine Kinase CK-MB (CK-2) C-Reactive Protein Total Protein Albumin Triglycerides Arterial Blood Glucose Arterial Blood Ionized Calcium Salicylates Acetaminophen 08/22/20 08/22/20 08/22/20 04:00 05:31 05:52 WBC RBC Hgb Hct MCHC RDW [place] % (Auto) [place] # (Auto) Seg Neutrophils % Seg Neutrophils # APTT D-Dimer ABG pH POC ABG pO2 64.0 L ABG pO2 ABG HCO3 ABG Base Excess ABG Hemoglobin 11.9 L ABG Sodium ABG Potassium ABG Chloride ABG Glucose 238 H Oxyhemoglobin Carboxyhemoglobin Sodium Potassium 3.4 L Chloride Carbon Dioxide BUN 23 H Creatinine 0.5 L Glucose 266 H POC Glucose 236 H Calcium Phosphorus Magnesium Alkaline Phosphatase Total Creatine Kinase CK-MB (CK-2) C-Reactive Protein Total Protein Albumin Triglycerides Arterial Blood Glucose 238 H Arterial Blood Ionized Calcium Salicylates Acetaminophen 08/22/20 08/22/20 08/22/20 12:51 13:37 17:14 WBC RBC Hgb Hct MCHC RDW [place] % (Auto) [place] # (Auto) Seg Neutrophils % Seg Neutrophils # APTT D-Dimer ABG pH POC ABG pO2 ABG pO2 ABG HCO3 ABG Base Excess ABG Hemoglobin ABG Sodium ABG Potassium ABG Chloride ABG Glucose Oxyhemoglobin Carboxyhemoglobin Sodium Potassium Chloride Carbon Dioxide BUN Creatinine Glucose POC Glucose 279 H 287 H Calcium Phosphorus Magnesium 1.60 L Alkaline Phosphatase Total Creatine Kinase CK-MB (CK-2) C-Reactive Protein Total Protein Albumin Triglycerides Arterial Blood Glucose Arterial Blood Ionized Calcium Salicylates Acetaminophen 08/23/20 08/23/20 08/23/20 00:03 04:29 04:29 WBC RBC 3.43 L Hgb 10.7 L Hct 30.9 L MCHC 35 H RDW [place] % (Auto) [place] # (Auto) Seg Neutrophils % Seg Neutrophils # APTT D-Dimer ABG pH POC ABG pO2 ABG pO2 ABG HCO3 ABG Base Excess ABG Hemoglobin ABG Sodium ABG Potassium ABG Chloride ABG Glucose Oxyhemoglobin Carboxyhemoglobin Sodium Potassium Chloride Carbon Dioxide BUN 26 H Creatinine 0.5 L Glucose 257 H POC Glucose 312 H Calcium Phosphorus Magnesium Alkaline Phosphatase Total Creatine Kinase CK-MB (CK-2) C-Reactive Protein Total Protein Albumin Triglycerides Arterial Blood Glucose Arterial Blood Ionized Calcium Salicylates Acetaminophen 08/23/20 08/23/20 08/23/20 05:27 12:36 13:35 WBC RBC Hgb Hct MCHC RDW [place] % (Auto) [place] # (Auto) Seg Neutrophils % Seg Neutrophils # APTT D-Dimer ABG pH POC ABG pO2 ABG pO2 ABG HCO3 ABG Base Excess ABG Hemoglobin ABG Sodium ABG Potassium ABG Chloride ABG Glucose 301 H Oxyhemoglobin Carboxyhemoglobin Sodium Potassium Chloride Carbon Dioxide BUN Creatinine Glucose POC Glucose 235 H 282 H Calcium Phosphorus Magnesium Alkaline Phosphatase Total Creatine Kinase CK-MB (CK-2) C-Reactive Protein Total Protein Albumin Triglycerides Arterial Blood Glucose 301 H Arterial Blood Ionized Calcium Salicylates Acetaminophen 08/23/20 08/23/20 08/23/20 17:58 22:34 23:48 WBC RBC Hgb Hct MCHC RDW [place] % (Auto) [place] # (Auto) Seg Neutrophils % Seg Neutrophils # APTT D-Dimer ABG pH POC ABG pO2 ABG pO2 ABG HCO3 ABG Base Excess ABG Hemoglobin ABG Sodium ABG Potassium ABG Chloride ABG Glucose Oxyhemoglobin Carboxyhemoglobin Sodium Potassium Chloride Carbon Dioxide BUN Creatinine Glucose POC Glucose 313 H 271 H 298 H Calcium Phosphorus Magnesium Alkaline Phosphatase Total Creatine Kinase CK-MB (CK-2) C-Reactive Protein Total Protein Albumin Triglycerides Arterial Blood Glucose Arterial Blood Ionized Calcium Salicylates Acetaminophen 08/24/20 08/24/20 08/24/20 04:19 04:19 06:19 WBC RBC 3.40 L Hgb 10.4 L Hct 30.9 L MCHC RDW [place] % (Auto) 9.1 H [place] # (Auto) Seg Neutrophils % 73.8 H Seg Neutrophils # APTT D-Dimer ABG pH POC ABG pO2 ABG pO2 ABG HCO3 ABG Base Excess ABG Hemoglobin ABG Sodium ABG Potassium ABG Chloride ABG Glucose Oxyhemoglobin Carboxyhemoglobin Sodium Potassium Chloride Carbon Dioxide BUN 22 H Creatinine 0.5 L Glucose 296 H POC Glucose 328 H Calcium Phosphorus Magnesium Alkaline Phosphatase 147 H Total Creatine Kinase CK-MB (CK-2) C-Reactive Protein Total Protein 5.9 L Albumin 2.6 L Triglycerides Arterial Blood Glucose Arterial Blood Ionized Calcium Salicylates Acetaminophen 08/24/20 12:15 WBC RBC Hgb Hct MCHC RDW [place] % (Auto) [place] # (Auto) Seg Neutrophils % Seg Neutrophils # APTT D-Dimer ABG pH POC ABG pO2 ABG pO2 ABG HCO3 ABG Base Excess ABG Hemoglobin ABG Sodium ABG Potassium ABG Chloride ABG Glucose Oxyhemoglobin Carboxyhemoglobin Sodium Potassium Chloride Carbon Dioxide BUN Creatinine Glucose POC Glucose 251 H Calcium Phosphorus Magnesium Alkaline Phosphatase Total Creatine Kinase CK-MB (CK-2) C-Reactive Protein Total Protein Albumin Triglycerides Arterial Blood Glucose Arterial Blood Ionized Calcium Salicylates Acetaminophen Chest x-ray: pending Allied health notes reviewed: nursing
[2020-08-24] MEDS ORDERED: QUEtiapine 100 MG TAB PO ONE (15:00)
--- NOTE | 2020-08-24 21:00 | Progress Note ---
Assessment and Plan . The high probability of a clinically significant, sudden or life threatening deterioration of the [respiratory, neurologic and immunologic] system(s) required my full and direct attention, intervention and personal management. The aggregate critical care time was [38] minutes. This time is in addition to time spent performing reported procedures but includes the following: [x] Data Review and interpretation [x] Patient assessment and monitoring of vital signs [x] Documentation [x] Medication orders and management - Patient Problems (1) Acute metabolic encephalopathy Current Visit: Yes Status: Acute Plan to address problem: Secondary to sepsis and hypoxia and respiratory failure (2) Acute hypoxemic respiratory failure Current Visit: Yes Status: Acute Plan to address problem: Weaning in progress On CPAP (3) Septic shock Current Visit: Yes Status: Acute Plan to address problem: #Severe sepsis with septic shock: Off pressors, leukocytosis resolved, remains low-grade fever. Differential diagnosis of pneumonia, discitis, left elbow ulcer Lumbar spine MRI for possible discitis (4) Diabetic foot infection Current Visit: No Status: Chronic Plan to address problem: Continue wound care (5) Type 2 diabetes mellitus Current Visit: Yes Status: Chronic Qualifiers: Diabetes mellitus halfway insulin use: unspecified long term acute care registered nurse insulin use status Plan to address problem: Coverage for now (6) Cerebrovascular accident (CVA) with left hemiparesis Current Visit: Yes Status: Chronic Plan to address problem: Supportive care (7) DVT prophylaxis Current Visit: Yes Status: Acute Plan to address problem: On SCDs, anticoagulation and GI prophylaxis Subjective Date of service: 08/24/20 Principal diagnosis: Ac hypoxemic resp failure; Ac encephalopathy (toxic metabolic); Sev. Sepsis Interval history: This is a 55-year-old male with past medical history of tobacco abuse, hypertension, hyperlipidemia diabetes mellitus type 2 and peripheral vascular disease who [place] and noted to have lethargy and hyporesponsiveness. Patient was transferred to our facility and intubated by the ER physician due to airway compromise/airway protection. The patient was noted to have an ABG of pH 7.33/PCO2 36/PO2 105 on room air. The patient had most recent hospitalization June 2020 and treated for chest pain attributed to costochondritis and chronic diastolic heart failure. Also, patient has had multiple peripheral artery procedures most recently 4 months ago and treatment for left diabetic foot ulceration/infection. Patient previously had an x-ray negative for osteomyelitis but did have gas. The patient had a PICC line placed in February and was to receive 3 weeks of vancomycin IV. Patient now presents with as noted above altered mentation and acute hypoxic respiratory failure. No other history is obtained as the patient is intubated on mechanical ventilation. Objective - Constitutional Vitals: Vital Signs - 12hr 08/24/20 08/24/20 08/24/20 09:00 09:15 09:30 Temperature Pulse Rate 102 H 117 H 108 H Pulse Rate [ From Monitor] Respiratory 20 23 18 Rate Blood Pressure 150/84 150/84 160/87 O2 Sat by Pulse 100 98 100 Oximetry 08/24/20 08/24/20 08/24/20 09:45 10:00 10:15 Temperature Pulse Rate 110 H 112 H 125 H Pulse Rate [ From Monitor] Respiratory 25 H 23 16 Rate Blood Pressure 160/87 151/81 151/81 O2 Sat by Pulse 97 96 97 Oximetry 08/24/20 08/24/20 08/24/20 10:31 10:45 11:00 Temperature Pulse Rate 123 H 123 H 116 H Pulse Rate [ From Monitor] Respiratory 23 19 20 Rate Blood Pressure 151/82 151/82 147/81 O2 Sat by Pulse 96 95 95 Oximetry 08/24/20 08/24/20 08/24/20 11:15 11:30 11:45 Temperature Pulse Rate 109 H 113 H 108 H Pulse Rate [ From Monitor] Respiratory 14 22 22 Rate Blood Pressure 151/82 139/75 139/75 O2 Sat by Pulse 97 98 98 Oximetry 08/24/20 08/24/20 08/24/20 12:00 12:15 12:30 Temperature 98.7 F Pulse Rate 94 H 109 H 105 H Pulse Rate [ 110 H From Monitor] Respiratory 18 20 16 Rate Blood Pressure 117/70 138/76 132/76 O2 Sat by Pulse 98 97 98 Oximetry 08/24/20 08/24/20 08/24/20 12:45 13:01 13:15 Temperature Pulse Rate 98 H 97 H 94 H Pulse Rate [ From Monitor] Respiratory 20 19 16 Rate Blood Pressure 132/76 117/70 117/70 O2 Sat by Pulse 98 98 98 Oximetry 08/24/20 08/24/20 08/24/20 13:30 13:45 14:00 Temperature Pulse Rate 92 H 91 H 88 Pulse Rate [ From Monitor] Respiratory 15 17 16 Rate Blood Pressure 116/69 117/70 124/73 O2 Sat by Pulse 98 98 98 Oximetry 08/24/20 08/24/20 08/24/20 14:15 14:30 14:45 Temperature Pulse Rate 91 H 91 H 88 Pulse Rate [ From Monitor] Respiratory 18 17 19 Rate Blood Pressure 116/69 131/77 131/77 O2 Sat by Pulse 98 98 98 Oximetry 08/24/20 08/24/20 08/24/20 15:00 15:15 15:30 Temperature Pulse Rate 90 87 87 Pulse Rate [ From Monitor] Respiratory 19 20 19 Rate Blood Pressure 131/77 118/71 125/74 O2 Sat by Pulse 98 98 98 Oximetry 08/24/20 08/24/20 08/24/20 15:45 16:00 16:01 Temperature 99.0 F Pulse Rate 104 H 89 92 H Pulse Rate [ 92 H From Monitor] Respiratory 21 19 19 Rate Blood Pressure 125/74 140/83 125/74 O2 Sat by Pulse 98 98 Oximetry 08/24/20 08/24/20 08/24/20 16:15 16:30 16:45 Temperature Pulse Rate 89 87 86 Pulse Rate [ From Monitor] Respiratory 19 16 18 Rate Blood Pressure 125/74 128/72 128/72 O2 Sat by Pulse 98 98 98 Oximetry 08/24/20 08/24/20 08/24/20 17:00 17:15 17:30 Temperature Pulse Rate 84 96 H 90 Pulse Rate [ From Monitor] Respiratory 21 21 17 Rate Blood Pressure 123/70 123/70 140/83 O2 Sat by Pulse 98 99 100 Oximetry 08/24/20 08/24/20 08/24/20 17:45 18:00 18:15 Temperature Pulse Rate 90 90 89 Pulse Rate [ From Monitor] Respiratory 13 21 17 Rate Blood Pressure 140/83 147/81 147/81 O2 Sat by Pulse 99 99 98 Oximetry 08/24/20 08/24/20 08/24/20 18:30 18:46 19:00 Temperature Pulse Rate 86 82 86 Pulse Rate [ 92 H From Monitor] Respiratory 16 19 19 Rate Blood Pressure 147/81 142/79 O2 Sat by Pulse 98 98 98 Oximetry 08/24/20 08/24/20 08/24/20 19:16 19:30 19:46 Temperature Pulse Rate 90 88 86 Pulse Rate [ From Monitor] Respiratory 15 18 18 Rate Blood Pressure 142/79 154/84 154/84 O2 Sat by Pulse 98 99 99 Oximetry 08/24/20 20:00 Temperature Pulse Rate 88 Pulse Rate [ From Monitor] Respiratory 17 Rate Blood Pressure 156/85 O2 Sat by Pulse 99 Oximetry - Labs CBC & Chem 7: 08/24/20 04:19 08/24/20 04:19 Labs: Abnormal lab results 08/23/20 08/23/20 08/24/20 Range/Units 22:34 23:48 04:19 RBC 3.40 L (3.65-5.03) M/mm3 Hgb 10.4 L (11.8-15.2) gm/dl Hct 30.9 L (35.5-45.6) % Chaves % (Auto) 9.1 H (0.0-7.3) % Seg Neutrophils % 73.8 H (40.0-70.0) % BUN (9-20) mg/dL Creatinine (0.8-1.3) mg/dL Glucose (75-100) mg/dL POC Glucose 271 H 298 H (70-105) mg/dL Alkaline Phosphatase (35-129) units/L Total Protein (6.3-8.2) g/dL Albumin (3.9-5) g/dL 08/24/20 08/24/20 08/24/20 Range/Units 04:19 06:19 12:15 RBC (3.65-5.03) M/mm3 Hgb (11.8-15.2) gm/dl Hct (35.5-45.6) % Chaves % (Auto) (0.0-7.3) % Seg Neutrophils % (40.0-70.0) % BUN 22 H (9-20) mg/dL Creatinine 0.5 L (0.8-1.3) mg/dL Glucose 296 H (75-100) mg/dL POC Glucose 328 H 251 H (70-105) mg/dL Alkaline Phosphatase 147 H (35-129) units/L Total Protein 5.9 L (6.3-8.2) g/dL Albumin 2.6 L (3.9-5) g/dL 08/24/20 Range/Units 17:20 RBC (3.65-5.03) M/mm3 Hgb (11.8-15.2) gm/dl Hct (35.5-45.6) % Chaves % (Auto) (0.0-7.3) % Seg Neutrophils % (40.0-70.0) % BUN (9-20) mg/dL Creatinine (0.8-1.3) mg/dL Glucose (75-100) mg/dL POC Glucose 345 H (70-105) mg/dL Alkaline Phosphatase (35-129) units/L Total Protein (6.3-8.2) g/dL Albumin (3.9-5) g/dL HEART Score - HEART Score Troponin: Troponin T < 0.010 ng/mL (0.00-0.029) 08/15/20 06:00
[2020-08-24] MEDS: INSULIN GLARGINE 100 UNITS/ML SUB-Q SCH (21:43)
[2020-08-24] MEDS: ENOXAPARIN 40 MG/0.4 ML INJ SUB-Q SCH (21:43)
[2020-08-24] MEDS: QUEtiapine 100 MG TAB PO SCH (21:44)
[2020-08-25] MEDS: INSULIN LISPRO 100 UNIT/ML VIAL 3 mL SUB-Q SCH ×4 (00:53→17:58)
[2020-08-25 05:40] LABS: Hematocrit 28.5 % (35.5-45.6); Hemoglobin 9.9 gm/dl (11.8-15.2); Mean Corpuscular HGB Conc 35 % (32-34); Mean Corpuscular Volume 88 fl (84-94); Red Blood Count 3.22 M/mm3 (3.65-5.03); Red Cell Distribution Width 14.8 % (13.2-15.2)
[2020-08-25] MEDS: PHENobarbital 20 MG/5 ML ORAL LIQD FEEDTUBE SCH ×3 (05:41→21:52)
[2020-08-25 05:48] LABS: Platelet Count 290 K/mm3 (140-440)
[2020-08-25 05:49] LABS: Basophils # (Auto) 0.1 K/mm3 (0.0-0.1); Eosinophils # (Auto) 0.3 K/mm3 (0.0-0.4); Eosinophils % (Auto) 1.9 % (0.0-4.3); Lymphocytes # (Auto) 2.8 K/mm3 (1.2-5.4); Lymphocytes % (Auto) 19.1 % (13.4-35.0); Monocytes % (Auto) 6.4 % (0.0-7.3)
[2020-08-25 05:57] LABS: Alanine Aminotransferase 22 units/L (7-56); Albumin 2.3 g/dL (3.9-5); BUN/Creatinine Ratio 42; Blood Urea Nitrogen 21 mg/dL (9-20); Calcium 9.7 mg/dL (8.4-10.2); Hemolysis Index 30
[2020-08-25] MEDS: fentaNYL DRIP Premix 2,000 MCG/100 ML BAG IV SCH ×2 (10:10→21:49)
[2020-08-25] MEDS: QUEtiapine 100 MG TAB PO SCH ×2 (10:11→21:50)
[2020-08-25] MEDS: INSULIN GLARGINE 100 UNITS/ML SUB-Q SCH ×2 (10:11→21:41)
[2020-08-25] MEDS: FAMOTIDINE 20 MG TAB PO SCH ×2 (10:12→21:52)
--- NOTE | 2020-08-25 13:09 | Progress Note ---
Assessment and Plan Cultures: 08/15/2020 blood cultures no growth today 08/15/2020 CSF culture no growth today 11/15/2019 urine culture no growth Assessment: 55 years old male with history of diabetes mellitus, hypertension, peripheral vascular disease, alcohol abuse, tobacco abuse, left foot diabetic ulceration with an abscess secondary to MRSA in February 2020, admitted on 08/16/2020 due to altered mental status lethargy unresponsive: #Severe sepsis with septic shock: Off pressors, leukocytosis resolved, remains low-grade fever. Source unclear, possible right elbow infection, pneumonia, discitis?, pyelonephritis. Chest x-ray possible right lower lobe infiltrate. Urinalysis negative. SARS-CoV-2 PCR negative. Patient underwent lumbar puncture in the emergency room, ED provider kindly contacted me with results - WBCs 10, RBCs 381. This is not consistent with meningitis. Procalcitonin normal. #Possible pneumonia: Repeat CXR mild infiltrates. CT with LLL consolidation. Sputum culture grew MSSA ? colonizer vs real (no wbc in resp specimen) #?Pyelonephritis: CT with bilateral fat perinephric fat stranding and retroperitoneal LNs however UA negative. #Acute hypoxemic respiratory failure: Patient intubated #Right elbow ulcer abscess/ cellulitis: CT with no abscess or effusion or osteomyelitis #Acute encephalopathy: Likely secondary to sepsis versus metabolic. ?drugs. 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 CSF with no pleocytosis but high protein. #Peripheral vascular disease: Very cold feet bilaterally. Arterial Doppler without any evidence of PAD?. Previous arterial Doppler abnormal. #Multiple skin tears in left hand and left lower extremities: Likely secondary to peripheral vascular disease #Possible L5-S1 discitis seen on CT: ? Recommendations: -Unable to undergo an MRI of the lumbar spine given no family available for MRI questionnaire -Start vancomycin 1 g IV every 12 and ceftriaxone 2 g IV daily total 6 weeks to cover lumbar discitis given significant destruction of endplate of L5-S1 until 09/27/2020. Keep vancomycin throughout 10 to 20 mcg/dL -Orders sent to mattress spring encaser -Place a PICC line -Wound care consultation Dr. Gardner rounding this weekend Will follow. Pastora Gongora MD Infectious Diseases [facility] [phone] Subjective Principal diagnosis: Ac hypoxemic resp failure; Ac encephalopathy (toxic metabolic); Sev. Sepsis Objective - Constitutional Vitals: Vital Signs Temp Pulse Resp BP Pulse Ox 98.6 F 119 H 33 H 160/101 97 08/25/20 08:00 08/25/20 12:00 08/25/20 12:00 08/25/20 12:00 08/25/20 12:00 Temperature -Last 24 Hours Temperature 98.6 F Temperature 99.3 F Temperature 98.6 F Temperature 99.5 F Temperature 99.0 F - Labs CBC & Chem 7: 08/25/20 04:33 08/25/20 04:33 Labs: Abnormal lab results 08/24/20 08/24/20 08/25/20 Range/Units 17:20 21:59 00:23 WBC (4.5-11.0) K/mm3 RBC (3.65-5.03) M/mm3 Hgb (11.8-15.2) gm/dl Hct (35.5-45.6) % MCHC (32-34) % Boyle # (Auto) (0.0-0.8) K/mm3 Seg Neutrophils % (40.0-70.0) % Seg Neutrophils # (1.8-7.7) K/mm3 ABG pH (7.320-7.450) ABG Hemoglobin (12.0-17.5) ABG Sodium (136.0-145.0) mmol/L ABG Glucose (65-95) mg/dL Sodium (137-145) mmol/L BUN (9-20) mg/dL Creatinine (0.8-1.3) mg/dL Glucose (75-100) mg/dL POC Glucose 345 H 249 H 269 H (70-105) mg/dL Alkaline Phosphatase (35-129) units/L Total Protein (6.3-8.2) g/dL Albumin (3.9-5) g/dL Arterial Blood Glucose (65-95) mg/dL 08/25/20 08/25/20 08/25/20 Range/Units 04:33 04:33 05:34 WBC 14.9 H (4.5-11.0) K/mm3 RBC 3.22 L (3.65-5.03) M/mm3 Hgb 9.9 L (11.8-15.2) gm/dl Hct 28.5 L (35.5-45.6) % MCHC 35 H (32-34) % Boyle # (Auto) 1.0 H (0.0-0.8) K/mm3 Seg Neutrophils % 71.9 H (40.0-70.0) % Seg Neutrophils # 10.6 H (1.8-7.7) K/mm3 ABG pH (7.320-7.450) ABG Hemoglobin (12.0-17.5) ABG Sodium (136.0-145.0) mmol/L ABG Glucose (65-95) mg/dL Sodium 136 L (137-145) mmol/L BUN 21 H (9-20) mg/dL Creatinine 0.5 L (0.8-1.3) mg/dL Glucose 225 H (75-100) mg/dL POC Glucose 215 H (70-105) mg/dL Alkaline Phosphatase 166 H (35-129) units/L Total Protein 6.0 L (6.3-8.2) g/dL Albumin 2.3 L (3.9-5) g/dL Arterial Blood Glucose (65-95) mg/dL 08/25/20 08/25/20 Range/Units 11:53 12:39 WBC (4.5-11.0) K/mm3 RBC (3.65-5.03) M/mm3 Hgb (11.8-15.2) gm/dl Hct (35.5-45.6) % MCHC (32-34) % Boyle # (Auto) (0.0-0.8) K/mm3 Seg Neutrophils % (40.0-70.0) % Seg Neutrophils # (1.8-7.7) K/mm3 ABG pH 7.463 H (7.320-7.450) ABG Hemoglobin 10.3 L (12.0-17.5) ABG Sodium 135.3 L (136.0-145.0) mmol/L ABG Glucose 254 H (65-95) mg/dL Sodium (137-145) mmol/L BUN (9-20) mg/dL Creatinine (0.8-1.3) mg/dL Glucose (75-100) mg/dL POC Glucose 291 H (70-105) mg/dL Alkaline Phosphatase (35-129) units/L Total Protein (6.3-8.2) g/dL Albumin (3.9-5) g/dL Arterial Blood Glucose 254 H (65-95) mg/dL
--- NOTE | 2020-08-25 13:12 | Progress Note ---
Assessment and Plan Acute hypoxemic respiratory failure on MVS Acute encephalopathy, presumably toxic metabolic. Severe sepsis with shock. History of diabetes. History of a cerebrovascular accident with persistent left hemiparesis. History of alcohol abuse. Hypertension. Chronic pain syndrome. History of deep venous thrombosis. - continue Seroquel at 300 mg po bid re: agitation - add Low dose Librium to spare IV sedation - rest on AC qhs acutely - continue care as below otherwise; - daily SAT and SBT assessment as tolerated - get US of left antecubital fossa in lieu of CT with contrast (unable to reach family) - tentative extubation in am if does well with SBT - continue to wean supplemental oxygen for target O2 sat's > 92% acutely - VAP bundle addressed - continue lung protective strategies - continue bronchodilators with pulmonary hygiene per RT - wean per pulmonary driven protocols otherwise - accuchecks with glycemic control per SSI (While critically ill target blood glucose of 140-180 mg/dL; avoid hypoglycemia) - sedation prn for target RASS 0 to -1 - avoid nephrotoxins, renally dose all medications - completed AB's per ID rec's - prn analgesia per CPOT score - Maintenance of sleep-wake cycle, avoid delirium - continue enteral nutritional support at goal rate as tolerated - G.I. & VTE prophylaxis - PT/OT/ROM exercises - continue mobility protocols for pressure ulcer prophylaxis - Monitor hemodynamics closely - continue other care per attending / other consultants - discharge planning ongoing concurrently .... Re-evaluate in am & prn CONDITION: CRITICAL PROGNOSIS: GUARDED CODE STATUS: FULL CODE The high probability of a clinically significant, sudden or life-threatening deterioration of the [respiratory, cardiovascular & neurologic] system(s) required my full and direct attention, intervention and personal management. The aggregate critical care time was [32] minutes without overlap. Time includes spe nt on; [x] Data Review and interpretation [x] Patient assessment and monitoring of vital signs [x] Documentation [x] Medication orders and management Subjective Date of service: 08/25/20 Principal diagnosis: Ac hypoxemic resp failure; Ac encephalopathy (toxic metabolic); Sev. Sepsis Interval history: Patient is seen today for: Acute hypoxemic respiratory failure; Acute e ncephalopathy (toxic metabolic); Severe sepsis with shock; DM II; CVA; alcohol abuse; HTN; DVT Seen and examined at bedside; 24hour events reviewed; nursing and respiratory care staff consulted; no adverse overnight events reported to me; resting in bed; weaning complicated by bouts of agitation and increased work of breathing during SBT's; sedated now; no emesis or overt aspiration; to receive PICC line for buttermaker AB's management Objective Vital Signs - 12hr 08/25/20 08/25/20 08/25/20 01:16 01:30 01:46 Temperature Pulse Rate 86 88 87 Pulse Rate [ From Monitor] Respiratory 14 22 20 Rate Blood Pressure 124/71 122/71 122/71 O2 Sat by Pulse 98 98 98 Oximetry 08/25/20 08/25/20 08/25/20 02:00 02:16 02:30 Temperature Pulse Rate 98 H 88 96 H Pulse Rate [ From Monitor] Respiratory 26 H 21 21 Rate Blood Pressure 152/79 152/79 133/48 O2 Sat by Pulse 98 97 98 Oximetry 08/25/20 08/25/20 08/25/20 02:46 03:00 03:10 Temperature Pulse Rate 90 95 H Pulse Rate [ 87 From Monitor] Respiratory 18 20 20 Rate Blood Pressure 133/48 143/76 O2 Sat by Pulse 96 98 98 Oximetry 08/25/20 08/25/20 08/25/20 03:16 03:30 03:46 Temperature Pulse Rate 93 H 92 H 94 H Pulse Rate [ From Monitor] Respiratory 17 20 19 Rate Blood Pressure 143/76 128/68 128/68 O2 Sat by Pulse 98 97 98 Oximetry 08/25/20 08/25/20 08/25/20 03:49 04:00 04:16 Temperature 99.3 F Pulse Rate 96 H 96 H 91 H Pulse Rate [ From Monitor] Respiratory 24 17 Rate Blood Pressure 128/68 144/66 144/66 O2 Sat by Pulse 100 98 96 Oximetry 08/25/20 08/25/20 08/25/20 04:30 04:46 05:00 Temperature Pulse Rate 94 H 91 H 96 H Pulse Rate [ From Monitor] Respiratory 22 12 22 Rate Blood Pressure 151/73 151/73 159/66 O2 Sat by Pulse 98 97 97 Oximetry 08/25/20 08/25/20 08/25/20 05:10 05:16 05:30 Temperature Pulse Rate 91 H 91 H 88 Pulse Rate [ From Monitor] Respiratory 20 19 20 Rate Blood Pressure 159/66 127/62 O2 Sat by Pulse 98 97 96 Oximetry 08/25/20 08/25/20 08/25/20 05:46 06:00 06:16 Temperature Pulse Rate 86 85 87 Pulse Rate [ From Monitor] Respiratory 20 18 15 Rate Blood Pressure 127/62 135/65 135/65 O2 Sat by Pulse 95 96 98 Oximetry 08/25/20 08/25/20 08/25/20 06:30 06:46 07:00 Temperature Pulse Rate 89 89 96 H Pulse Rate [ From Monitor] Respiratory 21 18 21 Rate Blood Pressure 125/64 125/64 128/87 O2 Sat by Pulse 97 97 98 Oximetry 08/25/20 08/25/20 08/25/20 07:16 07:30 07:46 Temperature Pulse Rate 88 87 98 H Pulse Rate [ From Monitor] Respiratory 21 18 16 Rate Blood Pressure 128/87 120/78 120/78 O2 Sat by Pulse 96 97 99 Oximetry 08/25/20 08/25/20 08/25/20 08:00 08:16 08:22 Temperature 98.6 F Pulse Rate 95 H 93 H 94 H Pulse Rate [ From Monitor] Respiratory 18 14 Rate Blood Pressure 123/102 123/102 142/95 O2 Sat by Pulse 98 98 100 Oximetry 08/25/20 08/25/20 08/25/20 08:28 08:30 08:46 Temperature Pulse Rate 93 H 94 H 101 H Pulse Rate [ From Monitor] Respiratory 23 28 H 16 Rate Blood Pressure 142/95 154/87 154/87 O2 Sat by Pulse 98 97 97 Oximetry 08/25/20 08/25/20 08/25/20 09:00 09:16 09:30 Temperature Pulse Rate 103 H 103 H 103 H Pulse Rate [ From Monitor] Respiratory 21 19 14 Rate Blood Pressure 162/97 162/97 181/83 O2 Sat by Pulse 98 98 98 Oximetry 08/25/20 08/25/20 08/25/20 09:46 10:00 10:16 Temperature Pulse Rate 107 H 105 H 98 H Pulse Rate [ From Monitor] Respiratory 20 25 H 29 H Rate Blood Pressure 162/97 157/88 181/83 O2 Sat by Pulse 97 100 97 Oximetry 08/25/20 08/25/20 08/25/20 10:30 10:46 11:00 Temperature Pulse Rate 100 H 101 H 104 H Pulse Rate [ From Monitor] Respiratory 17 22 25 H Rate Blood Pressure 159/84 157/88 171/93 O2 Sat by Pulse 96 99 98 Oximetry 08/25/20 08/25/20 08/25/20 11:16 11:30 11:43 Temperature Pulse Rate 110 H 114 H 113 H Pulse Rate [ From Monitor] Respiratory 20 22 29 H Rate Blood Pressure 159/84 172/88 154/95 O2 Sat by Pulse 98 98 99 Oximetry 08/25/20 08/25/20 11:46 12:00 Temperature Pulse Rate 109 H 119 H Pulse Rate [ From Monitor] Respiratory 21 33 H Rate Blood Pressure 154/95 160/101 O2 Sat by Pulse 97 97 Oximetry Constitutional: no acute distress, other (middle aged male with mildly increased respiratory effort at rest on MVS) Eyes: non-icteric ENT: oropharynx moist, other (ETT 23 cm [place]) Neck: supple, no lymphadenopathy, no JVD Effort: mildly labored Ascultation: Bilateral: diminished breath sounds, rhonchi (improved) Percussion: Bilateral: not dull Cardiovascular: regular rate and rhythm Gastrointestinal: normoactive bowel sounds, soft, non-tender, non-distended (protuberant) Integumentary: normal Extremities: no cyanosis, no edema, pink and warm, pulses normal, no ischemia or petechiae Neurologic: non-focal exam (grossly), pupils equal and round, motor strength normal and Psychiatric: mood appropriate, affect normal CBC and BMP: 08/25/20 04:33 08/25/20 04:33 ABG, PT/INR, D-dimer: ABG ABG pH 7.463 (7.320-7.450) H 08/25/20 11:53 POC ABG pCO2 37.9 mmHg (32.0-48.0) 08/25/20 11:53 ABG pCO2 35.2 mm Hg 08/21/20 04:22 POC ABG pO2 95.1 mmHg (83-108) 08/25/20 11:53 ABG pO2 89.9 mm Hg (80.0-90.0) 08/21/20 04:22 POC ABG HCO3 26.5 08/25/20 11:53 ABG O2 Saturation 97.3 % (95.0-99.0) 08/21/20 04:22 PT/INR, D-dimer PT 13.9 Sec. (12.2-14.9) 08/16/20 Unknown INR 1.06 (0.87-1.13) 08/16/20 Unknown D-Dimer 882.17 ng/mlDDU (0-234) H 08/16/20 14:45 D-Dimer 925.88 ng/mlDDU (0-234) H 08/16/20 14:45 Abnormal lab findings: Abnormal Labs 08/15/20 08/15/20 08/15/20 06:00 07:32 07:32 WBC RBC Hgb Hct MCHC RDW [place] % (Auto) [place] # (Auto) Seg Neutrophils % Seg Neutrophils # APTT D-Dimer ABG pH POC ABG pO2 ABG pO2 ABG HCO3 ABG Base Excess ABG Hemoglobin ABG Sodium ABG Potassium ABG Chloride ABG Glucose Oxyhemoglobin Carboxyhemoglobin Sodium 132 L Potassium Chloride 94.3 L Carbon Dioxide 19 L BUN 45 H Creatinine 1.6 H Glucose 285 H POC Glucose Calcium 10.4 H Phosphorus Magnesium Alkaline Phosphatase Total Creatine Kinase 446 H CK-MB (CK-2) 8.8 H C-Reactive Protein Total Protein Albumin 3.7 L Triglycerides Arterial Blood Glucose Arterial Blood Ionized Calcium Salicylates < 0.3 L Acetaminophen < 5.0 L 08/15/20 08/15/20 08/15/20 10:20 10:45 21:10 WBC RBC Hgb Hct MCHC RDW [place] % (Auto) [place] # (Auto) Seg Neutrophils % Seg Neutrophils # APTT D-Dimer ABG pH 7.338 L POC ABG pO2 110.3 H ABG pO2 105.9 H ABG HCO3 19.2 L ABG Base Excess -5.9 L ABG Hemoglobin 10.2 L 12.3 L ABG Sodium ABG Potassium ABG Chloride ABG Glucose Oxyhemoglobin Carboxyhemoglobin 1.7 H Sodium Potassium Chloride Carbon Dioxide BUN Creatinine Glucose 297 H POC Glucose Calcium Phosphorus Magnesium Alkaline Phosphatase Total Creatine Kinase CK-MB (CK-2) C-Reactive Protein Total Protein Albumin Triglycerides Arterial Blood Glucose Arterial Blood Ionized Calcium Salicylates Acetaminophen 08/16/20 08/16/20 08/16/20 04:30 08:59 14:45 WBC RBC Hgb Hct 35.3 L MCHC RDW 15.7 H [place] % (Auto) [place] # (Auto) Seg Neutrophils % Seg Neutrophils # APTT D-Dimer ABG pH 7.345 L POC ABG pO2 ABG pO2 134.5 H ABG HCO3 ABG Base Excess -5.2 L ABG Hemoglobin 12.1 L ABG Sodium ABG Potassium ABG Chloride ABG Glucose Oxyhemoglobin Carboxyhemoglobin Sodium Potassium 3.4 L Chloride 109.0 H Carbon Dioxide BUN 32 H Creatinine Glucose 186 H POC Glucose Calcium Phosphorus Magnesium Alkaline Phosphatase Total Creatine Kinase CK-MB (CK-2) C-Reactive Protein Total Protein 6.0 L Albumin 3.1 L Triglycerides Arterial Blood Glucose Arterial Blood Ionized Calcium Salicylates Acetaminophen 08/16/20 08/16/20 08/16/20 14:45 14:45 14:45 WBC RBC Hgb Hct MCHC RDW [place] % (Auto) [place] # (Auto) Seg Neutrophils % Seg Neutrophils # APTT D-Dimer 925.88 H 882.17 H ABG pH POC ABG pO2 ABG pO2 ABG HCO3 ABG Base Excess ABG Hemoglobin ABG Sodium ABG Potassium ABG Chloride ABG Glucose Oxyhemoglobin Carboxyhemoglobin Sodium Potassium Chloride Carbon Dioxide BUN Creatinine Glucose POC Glucose Calcium Phosphorus 1.50 L Magnesium 1.60 L Alkaline Phosphatase Total Creatine Kinase CK-MB (CK-2) C-Reactive Protein Total Protein Albumin Triglycerides Arterial Blood Glucose Arterial Blood Ionized Calcium Salicylates Acetaminophen 08/16/20 08/16/20 08/16/20 14:45 17:42 Unknown WBC 16.7 H RBC Hgb Hct MCHC RDW [place] % (Auto) [place] # (Auto) 1.0 H Seg Neutrophils % 79.9 H Seg Neutrophils # 13.4 H APTT D-Dimer ABG pH POC ABG pO2 ABG pO2 ABG HCO3 ABG Base Excess ABG Hemoglobin ABG Sodium ABG Potassium ABG Chloride ABG Glucose Oxyhemoglobin Carboxyhemoglobin Sodium Potassium Chloride Carbon Dioxide BUN Creatinine Glucose POC Glucose 169 H Calcium Phosphorus Magnesium Alkaline Phosphatase Total Creatine Kinase CK-MB (CK-2) C-Reactive Protein 2.70 H Total Protein Albumin Triglycerides Arterial Blood Glucose Arterial Blood Ionized Calcium Salicylates Acetaminophen 08/16/20 08/16/20 08/17/20 Unknown Unknown 00:06 WBC RBC Hgb Hct MCHC RDW [place] % (Auto) [place] # (Auto) Seg Neutrophils % Seg Neutrophils # APTT 23.9 L D-Dimer ABG pH POC ABG pO2 ABG pO2 ABG HCO3 ABG Base Excess ABG Hemoglobin ABG Sodium ABG Potassium ABG Chloride ABG Glucose Oxyhemoglobin Carboxyhemoglobin Sodium Potassium Chloride Carbon Dioxide 17 L BUN 33 H Creatinine Glucose 233 H POC Glucose 125 H Calcium Phosphorus Magnesium Alkaline Phosphatase Total Creatine Kinase CK-MB (CK-2) C-Reactive Protein Total Protein Albumin Triglycerides Arterial Blood Glucose Arterial Blood Ionized Calcium Salicylates Acetaminophen 08/17/20 08/17/20 08/17/20 03:40 05:52 12:30 WBC RBC Hgb Hct MCHC RDW [place] % (Auto) [place] # (Auto) Seg Neutrophils % Seg Neutrophils # APTT D-Dimer ABG pH POC ABG pO2 60.8 L ABG pO2 ABG HCO3 ABG Base Excess ABG Hemoglobin ABG Sodium ABG Potassium ABG Chloride 115.0 H ABG Glucose 139 H Oxyhemoglobin Carboxyhemoglobin Sodium Potassium Chloride Carbon Dioxide BUN Creatinine Glucose POC Glucose 139 H 133 H Calcium Phosphorus Magnesium Alkaline Phosphatase Total Creatine Kinase CK-MB (CK-2) C-Reactive Protein Total Protein Albumin Triglycerides Arterial Blood Glucose 139 H Arterial Blood Ionized Calcium 5.5 H Salicylates Acetaminophen 08/17/20 08/18/20 08/18/20 17:47 00:08 04:00 WBC RBC Hgb Hct MCHC RDW [place] % (Auto) [place] # (Auto) Seg Neutrophils % Seg Neutrophils # APTT D-Dimer ABG pH 7.315 L POC ABG pO2 ABG pO2 75.1 L ABG HCO3 ABG Base Excess -4.3 L ABG Hemoglobin 11.9 L ABG Sodium ABG Potassium ABG Chloride ABG Glucose Oxyhemoglobin 93.7 L Carboxyhemoglobin Sodium Potassium Chloride Carbon Dioxide BUN Creatinine Glucose POC Glucose 157 H 129 H Calcium Phosphorus Magnesium Alkaline Phosphatase Total Creatine Kinase CK-MB (CK-2) C-Reactive Protein Total Protein Albumin Triglycerides Arterial Blood Glucose Arterial Blood Ionized Calcium Salicylates Acetaminophen 08/18/20 08/18/20 08/19/20 05:31 12:26 00:02 WBC RBC Hgb Hct MCHC RDW [place] % (Auto) [place] # (Auto) Seg Neutrophils % Seg Neutrophils # APTT D-Dimer ABG pH POC ABG pO2 ABG pO2 ABG HCO3 ABG Base Excess ABG Hemoglobin ABG Sodium ABG Potassium ABG Chloride ABG Glucose Oxyhemoglobin Carboxyhemoglobin Sodium Potassium Chloride Carbon Dioxide BUN Creatinine Glucose POC Glucose 114 H 112 H 107 H Calcium Phosphorus Magnesium Alkaline Phosphatase Total Creatine Kinase CK-MB (CK-2) C-Reactive Protein Total Protein Albumin Triglycerides Arterial Blood Glucose Arterial Blood Ionized Calcium Salicylates Acetaminophen 08/19/20 08/19/20 08/19/20 04:19 05:34 12:48 WBC RBC Hgb Hct MCHC RDW [place] % (Auto) [place] # (Auto) Seg Neutrophils % Seg Neutrophils # APTT D-Dimer ABG pH 7.451 H POC ABG pO2 172.9 H ABG pO2 ABG HCO3 ABG Base Excess ABG Hemoglobin ABG Sodium ABG Potassium ABG Chloride ABG Glucose Oxyhemoglobin Carboxyhemoglobin Sodium Potassium Chloride Carbon Dioxide BUN Creatinine Glucose POC Glucose 114 H 198 H Calcium Phosphorus Magnesium Alkaline Phosphatase Total Creatine Kinase CK-MB (CK-2) C-Reactive Protein Total Protein Albumin Triglycerides Arterial Blood Glucose Arterial Blood Ionized Calcium Salicylates Acetaminophen 08/19/20 08/19/20 08/20/20 18:01 21:40 05:00 WBC RBC Hgb Hct MCHC RDW [place] % (Auto) [place] # (Auto) Seg Neutrophils % Seg Neutrophils # APTT D-Dimer ABG pH POC ABG pO2 72.1 L ABG pO2 ABG HCO3 ABG Base Excess ABG Hemoglobin ABG Sodium 132.4 L ABG Potassium 2.7 L ABG Chloride ABG Glucose 293 H Oxyhemoglobin Carboxyhemoglobin Sodium Potassium Chloride Carbon Dioxide BUN Creatinine Glucose POC Glucose 211 H 252 H Calcium Phosphorus Magnesium Alkaline Phosphatase Total Creatine Kinase CK-MB (CK-2) C-Reactive Protein Total Protein Albumin Triglycerides Arterial Blood Glucose 293 H Arterial Blood Ionized Calcium Salicylates Acetaminophen 08/20/20 08/20/20 08/20/20 05:15 07:06 07:45 WBC RBC Hgb Hct MCHC RDW [place] % (Auto) [place] # (Auto) Seg Neutrophils % Seg Neutrophils # APTT D-Dimer ABG pH POC ABG pO2 ABG pO2 ABG HCO3 ABG Base Excess ABG Hemoglobin ABG Sodium ABG Potassium ABG Chloride ABG Glucose Oxyhemoglobin Carboxyhemoglobin Sodium Potassium 2.9 L* Chloride Carbon Dioxide BUN Creatinine 0.6 L Glucose 304 H POC Glucose 238 H Calcium Phosphorus Magnesium Alkaline Phosphatase Total Creatine Kinase CK-MB (CK-2) C-Reactive Protein Total Protein Albumin Triglycerides 260 H Arterial Blood Glucose Arterial Blood Ionized Calcium Salicylates Acetaminophen 08/20/20 08/20/20 08/21/20 12:20 17:49 00:18 WBC RBC Hgb Hct MCHC RDW [place] % (Auto) [place] # (Auto) Seg Neutrophils % Seg Neutrophils # APTT D-Dimer ABG pH POC ABG pO2 ABG pO2 ABG HCO3 ABG Base Excess ABG Hemoglobin ABG Sodium ABG Potassium ABG Chloride ABG Glucose Oxyhemoglobin Carboxyhemoglobin Sodium Potassium Chloride Carbon Dioxide BUN Creatinine Glucose POC Glucose 303 H 302 H 254 H Calcium Phosphorus Magnesium Alkaline Phosphatase Total Creatine Kinase CK-MB (CK-2) C-Reactive Protein Total Protein Albumin Triglycerides Arterial Blood Glucose Arterial Blood Ionized Calcium Salicylates Acetaminophen 08/21/20 08/21/20 08/21/20 04:05 04:05 04:22 WBC RBC 3.50 L Hgb 10.9 L Hct 31.3 L MCHC 35 H RDW [place] % (Auto) [place] # (Auto) Seg Neutrophils % Seg Neutrophils # APTT D-Dimer ABG pH POC ABG pO2 ABG pO2 ABG HCO3 ABG Base Excess ABG Hemoglobin 10.9 L ABG Sodium ABG Potassium ABG Chloride ABG Glucose Oxyhemoglobin Carboxyhemoglobin Sodium Potassium 3.5 L D Chloride Carbon Dioxide BUN 24 H Creatinine 0.5 L Glucose 274 H POC Glucose Calcium Phosphorus Magnesium Alkaline Phosphatase Total Creatine Kinase CK-MB (CK-2) C-Reactive Protein Total Protein Albumin Triglycerides Arterial Blood Glucose Arterial Blood Ionized Calcium Salicylates Acetaminophen 08/21/20 08/21/20 08/21/20 05:13 11:30 17:37 WBC RBC Hgb Hct MCHC RDW [place] % (Auto) [place] # (Auto) Seg Neutrophils % Seg Neutrophils # APTT D-Dimer ABG pH POC ABG pO2 ABG pO2 ABG HCO3 ABG Base Excess ABG Hemoglobin ABG Sodium ABG Potassium ABG Chloride ABG Glucose Oxyhemoglobin Carboxyhemoglobin Sodium Potassium Chloride Carbon Dioxide BUN Creatinine Glucose POC Glucose 240 H 296 H 272 H Calcium Phosphorus Magnesium Alkaline Phosphatase Total Creatine Kinase CK-MB (CK-2) C-Reactive Protein Total Protein Albumin Triglycerides Arterial Blood Glucose Arterial Blood Ionized Calcium Salicylates Acetaminophen 08/21/20 08/22/20 08/22/20 Unknown 00:42 04:00 WBC RBC Hgb 11.2 L Hct 33.1 L MCHC RDW [place] % (Auto) [place] # (Auto) Seg Neutrophils % Seg Neutrophils # APTT D-Dimer ABG pH POC ABG pO2 ABG pO2 ABG HCO3 ABG Base Excess ABG Hemoglobin ABG Sodium ABG Potassium ABG Chloride ABG Glucose Oxyhemoglobin Carboxyhemoglobin Sodium Potassium Chloride Carbon Dioxide BUN Creatinine Glucose POC Glucose 278 H Calcium Phosphorus Magnesium 1.30 L Alkaline Phosphatase Total Creatine Kinase CK-MB (CK-2) C-Reactive Protein Total Protein Albumin Triglycerides Arterial Blood Glucose Arterial Blood Ionized Calcium Salicylates Acetaminophen 08/22/20 08/22/20 08/22/20 04:00 05:31 05:52 WBC RBC Hgb Hct MCHC RDW [place] % (Auto) [place] # (Auto) Seg Neutrophils % Seg Neutrophils # APTT D-Dimer ABG pH POC ABG pO2 64.0 L ABG pO2 ABG HCO3 ABG Base Excess ABG Hemoglobin 11.9 L ABG Sodium ABG Potassium ABG Chloride ABG Glucose 238 H Oxyhemoglobin Carboxyhemoglobin Sodium Potassium 3.4 L Chloride Carbon Dioxide BUN 23 H Creatinine 0.5 L Glucose 266 H POC Glucose 236 H Calcium Phosphorus Magnesium Alkaline Phosphatase Total Creatine Kinase CK-MB (CK-2) C-Reactive Protein Total Protein Albumin Triglycerides Arterial Blood Glucose 238 H Arterial Blood Ionized Calcium Salicylates Acetaminophen 08/22/20 08/22/20 08/22/20 12:51 13:37 17:14 WBC RBC Hgb Hct MCHC RDW [place] % (Auto) [place] # (Auto) Seg Neutrophils % Seg Neutrophils # APTT D-Dimer ABG pH POC ABG pO2 ABG pO2 ABG HCO3 ABG Base Excess ABG Hemoglobin ABG Sodium ABG Potassium ABG Chloride ABG Glucose Oxyhemoglobin Carboxyhemoglobin Sodium Potassium Chloride Carbon Dioxide BUN Creatinine Glucose POC Glucose 279 H 287 H Calcium Phosphorus Magnesium 1.60 L Alkaline Phosphatase Total Creatine Kinase CK-MB (CK-2) C-Reactive Protein Total Protein Albumin Triglycerides Arterial Blood Glucose Arterial Blood Ionized Calcium Salicylates Acetaminophen 08/23/20 08/23/20 08/23/20 00:03 04:29 04:29 WBC RBC 3.43 L Hgb 10.7 L Hct 30.9 L MCHC 35 H RDW [place] % (Auto) [place] # (Auto) Seg Neutrophils % Seg Neutrophils # APTT D-Dimer ABG pH POC ABG pO2 ABG pO2 ABG HCO3 ABG Base Excess ABG Hemoglobin ABG Sodium ABG Potassium ABG Chloride ABG Glucose Oxyhemoglobin Carboxyhemoglobin Sodium Potassium Chloride Carbon Dioxide BUN 26 H Creatinine 0.5 L Glucose 257 H POC Glucose 312 H Calcium Phosphorus Magnesium Alkaline Phosphatase Total Creatine Kinase CK-MB (CK-2) C-Reactive Protein Total Protein Albumin Triglycerides Arterial Blood Glucose Arterial Blood Ionized Calcium Salicylates Acetaminophen 08/23/20 08/23/20 08/23/20 05:27 12:36 13:35 WBC RBC Hgb Hct MCHC RDW [place] % (Auto) [place] # (Auto) Seg Neutrophils % Seg Neutrophils # APTT D-Dimer ABG pH POC ABG pO2 ABG pO2 ABG HCO3 ABG Base Excess ABG Hemoglobin ABG Sodium ABG Potassium ABG Chloride ABG Glucose 301 H Oxyhemoglobin Carboxyhemoglobin Sodium Potassium Chloride Carbon Dioxide BUN Creatinine Glucose POC Glucose 235 H 282 H Calcium Phosphorus Magnesium Alkaline Phosphatase Total Creatine Kinase CK-MB (CK-2) C-Reactive Protein Total Protein Albumin Triglycerides Arterial Blood Glucose 301 H Arterial Blood Ionized Calcium Salicylates Acetaminophen 08/23/20 08/23/20 08/23/20 17:58 22:34 23:48 WBC RBC Hgb Hct MCHC RDW [place] % (Auto) [place] # (Auto) Seg Neutrophils % Seg Neutrophils # APTT D-Dimer ABG pH POC ABG pO2 ABG pO2 ABG HCO3 ABG Base Excess ABG Hemoglobin ABG Sodium ABG Potassium ABG Chloride ABG Glucose Oxyhemoglobin Carboxyhemoglobin Sodium Potassium Chloride Carbon Dioxide BUN Creatinine Glucose POC Glucose 313 H 271 H 298 H Calcium Phosphorus Magnesium Alkaline Phosphatase Total Creatine Kinase CK-MB (CK-2) C-Reactive Protein Total Protein Albumin Triglycerides Arterial Blood Glucose Arterial Blood Ionized Calcium Salicylates Acetaminophen 08/24/20 08/24/20 08/24/20 04:19 04:19 06:19 WBC RBC 3.40 L Hgb 10.4 L Hct 30.9 L MCHC RDW [place] % (Auto) 9.1 H [place] # (Auto) Seg Neutrophils % 73.8 H Seg Neutrophils # APTT D-Dimer ABG pH POC ABG pO2 ABG pO2 ABG HCO3 ABG Base Excess ABG Hemoglobin ABG Sodium ABG Potassium ABG Chloride ABG Glucose Oxyhemoglobin Carboxyhemoglobin Sodium Potassium Chloride Carbon Dioxide BUN 22 H Creatinine 0.5 L Glucose 296 H POC Glucose 328 H Calcium Phosphorus Magnesium Alkaline Phosphatase 147 H Total Creatine Kinase CK-MB (CK-2) C-Reactive Protein Total Protein 5.9 L Albumin 2.6 L Triglycerides Arterial Blood Glucose Arterial Blood Ionized Calcium Salicylates Acetaminophen 08/24/20 08/24/20 08/24/20 12:15 17:20 21:59 WBC RBC Hgb Hct MCHC RDW [place] % (Auto) [place] # (Auto) Seg Neutrophils % Seg Neutrophils # APTT D-Dimer ABG pH POC ABG pO2 ABG pO2 ABG HCO3 ABG Base Excess ABG Hemoglobin ABG Sodium ABG Potassium ABG Chloride ABG Glucose Oxyhemoglobin Carboxyhemoglobin Sodium Potassium Chloride Carbon Dioxide BUN Creatinine Glucose POC Glucose 251 H 345 H 249 H Calcium Phosphorus Magnesium Alkaline Phosphatase Total Creatine Kinase CK-MB (CK-2) C-Reactive Protein Total Protein Albumin Triglycerides Arterial Blood Glucose Arterial Blood Ionized Calcium Salicylates Acetaminophen 08/25/20 08/25/20 08/25/20 00:23 04:33 04:33 WBC 14.9 H RBC 3.22 L Hgb 9.9 L Hct 28.5 L MCHC 35 H RDW [place] % (Auto) [place] # (Auto) 1.0 H Seg Neutrophils % 71.9 H Seg Neutrophils # 10.6 H APTT D-Dimer ABG pH POC ABG pO2 ABG pO2 ABG HCO3 ABG Base Excess ABG Hemoglobin ABG Sodium ABG Potassium ABG Chloride ABG Glucose Oxyhemoglobin Carboxyhemoglobin Sodium 136 L Potassium Chloride Carbon Dioxide BUN 21 H Creatinine 0.5 L Glucose 225 H POC Glucose 269 H Calcium Phosphorus Magnesium Alkaline Phosphatase 166 H Total Creatine Kinase CK-MB (CK-2) C-Reactive Protein Total Protein 6.0 L Albumin 2.3 L Triglycerides Arterial Blood Glucose Arterial Blood Ionized Calcium Salicylates Acetaminophen 08/25/20 08/25/20 08/25/20 05:34 11:53 12:39 WBC RBC Hgb Hct MCHC RDW [place] % (Auto) [place] # (Auto) Seg Neutrophils % Seg Neutrophils # APTT D-Dimer ABG pH 7.463 H POC ABG pO2 ABG pO2 ABG HCO3 ABG Base Excess ABG Hemoglobin 10.3 L ABG Sodium 135.3 L ABG Potassium ABG Chloride ABG Glucose 254 H Oxyhemoglobin Carboxyhemoglobin Sodium Potassium Chloride Carbon Dioxide BUN Creatinine Glucose POC Glucose 215 H 291 H Calcium Phosphorus Magnesium Alkaline Phosphatase Total Creatine Kinase CK-MB (CK-2) C-Reactive Protein Total Protein Albumin Triglycerides Arterial Blood Glucose 254 H Arterial Blood Ionized Calcium Salicylates Acetaminophen CT scan - chest: other (CT abd/pelvis with small left pleural effusion and LLL atelectasis / consolidation) Allied health notes reviewed: nursing
--- NOTE | 2020-08-25 20:53 | Progress Note ---
Assessment and Plan - Patient Problems (1) Acute hypoxemic respiratory failure Current Visit: Yes Status: Acute Plan to address problem: Patient currently intubated and ambulatory support, wean vent as tolerated, critical care team consulted, sedation holiday, spontaneous breathing trial daily, The high probability of a clinically significant, sudden or life threatening deterioration of the [cardiac, pulmonary, neuro] system(s) required my full and direct attention, intervention and personal management. The aggregate critical care time was [90] minutes. This time is in addition to time spent performing reported procedures but includes the following: [x] Data Review and interpretation [x] Patient assessment and monitoring of vital signs [x] Documentation [x] Medication orders and management (2) Acute metabolic encephalopathy Current Visit: Yes Status: Acute Plan to address problem: Supportive care, continue medical management. (3) Cerebrovascular accident (CVA) with left hemiparesis Current Visit: Yes Status: Chronic Plan to address problem: Supportive care, continue medical management. (4) Type 2 diabetes mellitus Current Visit: Yes Status: Chronic Qualifiers: Diabetes mellitus terminal makeup operator insulin use: unspecified terminal makeup operator insulin use status Plan to address problem: Sliding-scale insulin therapy, Accu-Chek, hypoglycemia protocol. (5) DVT prophylaxis Current Visit: Yes Status: Acute Plan to address problem: SCD to bilateral lower extremities while in bed, prophylactic anticoagulation History Interval history: 55 YO Male HD #11 with acute hypoxemic respiratory failure, acute metabolic encephalopathy, septic shock, diabetic foot infection CVA with left hemiparesis. Patient currently intubated and on vent support. No significant improvement overnight. No acute decompensation overnight. No reported nursing events. Patient currently off pressors. No clinical signs of pain. Hospitalist Physical - Constitutional Vitals: Temp Pulse Resp BP Pulse Ox 98.8 F 108 H 17 147/88 97 08/25/20 16:00 08/25/20 20:00 08/25/20 20:00 08/25/20 20:00 08/25/20 20:00 General appearance: Present: severe distress, well-nourished - EENT Eyes: Present: PERRL ENT: hearing decreased - Neck Neck: Present: supple - Respiratory Respiratory effort: labored Respiratory: bilateral: diminished, rhonchi - Cardiovascular Rhythm: regular Heart Sounds: Present: S1 & S2 Peripheral Pulses: within normal limits - Abdominal General gastrointestinal: soft, non-distended - Integumentary Integumentary: Present: clear, dry - Psychiatric Psychiatric: no appropriate mood/affect, no intact judgment & insight, no memory intact HEART Score - HEART Score Troponin: Troponin T < 0.010 ng/mL (0.00-0.029) 08/15/20 06:00 Results - Labs CBC & Chem 7: 08/25/20 04:33 08/25/20 04:33 Labs: Laboratory Last Values WBC 14.9 K/mm3 (4.5-11.0) H 08/25/20 04:33 RBC 3.22 M/mm3 (3.65-5.03) L 08/25/20 04:33 Hgb 9.9 gm/dl (11.8-15.2) L 08/25/20 04:33 Hct 28.5 % (35.5-45.6) L 08/25/20 04:33 MCV 88 fl (84-94) 08/25/20 04:33 MCH 31 pg (28-32) 08/25/20 04:33 MCHC 35 % (32-34) H 08/25/20 04:33 RDW 14.8 % (13.2-15.2) 08/25/20 04:33 Plt Count 290 K/mm3 (140-440) 08/25/20 04:33 Lymph % (Auto) 19.1 % (13.4-35.0) 08/25/20 04:33 [place] % (Auto) 6.4 % (0.0-7.3) 08/25/20 04:33 Eos % (Auto) 1.9 % (0.0-4.3) 08/25/20 04:33 Baso % (Auto) 1.0 % (0.0-1.8) 08/25/20 04:33 Lymph # (Auto) 2.8 K/mm3 (1.2-5.4) 08/25/20 04:33 [place] # (Auto) 1.0 K/mm3 (0.0-0.8) H 08/25/20 04:33 Eos # (Auto) 0.3 K/mm3 (0.0-0.4) 08/25/20 04:33 Baso # (Auto) 0.1 K/mm3 (0.0-0.1) 08/25/20 04:33 Seg Neutrophils % 71.9 % (40.0-70.0) H 08/25/20 04:33 Seg Neutrophils # 10.6 K/mm3 (1.8-7.7) H 08/25/20 04:33 PT 13.9 Sec. (12.2-14.9) 08/16/20 Unknown INR 1.06 (0.87-1.13) 08/16/20 Unknown APTT 23.9 Sec. (24.2-36.6) L 08/16/20 Unknown D-Dimer 882.17 ng/mlDDU (0-234) H 08/16/20 14:45 D-Dimer 925.88 ng/mlDDU (0-234) H 08/16/20 14:45 ABG pH 7.463 (7.320-7.450) H 08/25/20 11:53 POC ABG pCO2 37.9 mmHg (32.0-48.0) 08/25/20 11:53 ABG pCO2 35.2 mm Hg 08/21/20 04:22 POC ABG pO2 95.1 mmHg (83-108) 08/25/20 11:53 ABG pO2 89.9 mm Hg (80.0-90.0) 08/21/20 04:22 POC ABG HCO3 26.5 08/25/20 11:53 ABG HCO3 22.5 mmol/L (20.0-26.0) 08/21/20 04:22 ABG O2 Saturation 97.3 % (95.0-99.0) 08/21/20 04:22 ABG O2 Content 14.7 (0.0-44) 08/21/20 04:22 POC ABG Base Excess 2.7 08/25/20 11:53 ABG Base Excess -1.5 mmol/L (-2.0-3.0) 08/21/20 04:22 ABG Hemoglobin 10.3 (12.0-17.5) L 08/25/20 11:53 ABG Oxyhemoglobin 95.8 (94-98) 08/15/20 10:20 ABG Carboxyhemoglobin 1.5 % (0.0-5.0) 08/21/20 04:22 ABG Methemoglobin 0.4 % (0.0-1.5) 08/21/20 04:22 ABG Sodium 135.3 mmol/L (136.0-145.0) L 08/25/20 11:53 ABG Potassium 3.6 mmol/L (3.40-4.50) 08/25/20 11:53 ABG Chloride 102.0 mmol/L (98-107) 08/25/20 11:53 ABG Glucose 254 mg/dL (65-95) H 08/25/20 11:53 Oxyhemoglobin 95.4 % (95.0-99.0) 08/21/20 04:22 Carboxyhemoglobin 1.7 (0.5-1.5) H 08/15/20 10:20 FiO2 30.0 08/25/20 11:53 Sodium 136 mmol/L (137-145) L 08/25/20 04:33 Potassium 3.7 mmol/L (3.6-5.0) 08/25/20 04:33 Chloride 100.5 mmol/L (98-107) 08/25/20 04:33 Carbon Dioxide 28 mmol/L (22-30) 08/25/20 04:33 Anion Gap 11 mmol/L 08/25/20 04:33 BUN 21 mg/dL (9-20) H 08/25/20 04:33 Creatinine 0.5 mg/dL (0.8-1.3) L 08/25/20 04:33 Estimated GFR > 60 ml/min 08/25/20 04:33 BUN/Creatinine Ratio 42 % 08/25/20 04:33 Glucose 225 mg/dL (75-100) H 08/25/20 04:33 POC Glucose 291 mg/dL (70-105) H 08/25/20 12:39 Lactic Acid 0.80 mmol/L (0.7-2.0) 08/16/20 14:45 Calcium 9.7 mg/dL (8.4-10.2) 08/25/20 04:33 Phosphorus 1.50 mg/dL (2.5-4.5) L 08/16/20 14:45 Magnesium 1.60 mg/dL (1.7-2.3) L 08/22/20 13:37 Total Bilirubin 0.30 mg/dL (0.1-1.2) 08/25/20 04:33 AST 19 units/L (5-40) 08/25/20 04:33 ALT 22 units/L (7-56) 08/25/20 04:33 Alkaline Phosphatase 166 units/L (35-129) H 08/25/20 04:33 Ammonia 56.0 umol/L (25-60) 08/15/20 07:32 Total Creatine Kinase 446 units/L (55-170) H 08/15/20 06:00 CK-MB (CK-2) 8.8 ng/mL (0.0-4.0) H 08/15/20 06:00 CK-MB (CK-2) Rel Index 1.9 (0-4) 08/15/20 06:00 Troponin T < 0.010 ng/mL (0.00-0.029) 08/15/20 06:00 C-Reactive Protein 2.70 mg/dL (0.00-1.30) H 08/16/20 14:45 Total Protein 6.0 g/dL (6.3-8.2) L 08/25/20 04:33 Albumin 2.3 g/dL (3.9-5) L 08/25/20 04:33 Albumin/Globulin Ratio 0.6 % 08/25/20 04:33 Triglycerides 260 mg/dL (2-149) H 08/20/20 05:15 Procalcitonin < 0.05 ng/mL (<0.15) 08/16/20 14:45 TSH 0.490 mlU/mL (0.270-4.200) 08/15/20 10:45 Free T4 0.91 ng/dL (0.76-1.46) 08/15/20 10:45 Arterial Blood Glucose 254 mg/dL (65-95) H 08/25/20 11:53 Arterial Blood Ionized Calcium 5.1 mg/dL (4.6-5.3) 08/25/20 11:53 Urine Color Yellow (Yellow) 08/16/20 17:00 Urine Turbidity Clear (Clear) 08/16/20 17:00 Urine pH 6.0 (5.0-7.0) 08/16/20 17:00 Ur Specific [place] 1.021 (1.003-1.030) 08/16/20 17:00 Urine Protein 30 mg/dl mg/dL (Negative) 08/16/20 17:00 Urine Glucose (UA) Neg mg/dL (Negative) 08/16/20 17:00 Urine Ketones Neg mg/dL (Negative) 08/16/20 17:00 Urine Blood Mod (Negative) 08/16/20 17:00 Urine Nitrite Neg (Negative) 08/16/20 17:00 Urine Bilirubin Neg (Negative) 08/16/20 17:00 Urine Urobilinogen 2.0 mg/dL (<2.0) 08/16/20 17:00 Ur Leukocyte Esterase Neg (Negative) 08/16/20 17:00 Urine WBC (Auto) 1.0 /HPF (0.0-6.0) 08/16/20 17:00 Urine RBC (Auto) 1.0 /HPF (0.0-6.0) 08/16/20 17:00 U Epithel Cells (Auto) < 1.0 /HPF (0-13.0) 08/16/20 17:00 Urine Mucus Few /HPF 08/16/20 17:00 CSF Glucose 183 mg/dL 08/15/20 09:45 CSF Total Protein 129 mg/dL 08/15/20 09:45 Vancomycin Trough 14.4 ug/mL (5.0-20.0) 08/18/20 21:20 Salicylates < 0.3 mg/dL (2.8-20.0) L 08/15/20 07:32 Urine Opiates Screen Negative 08/18/20 13:43 Urine Methadone Screen Negative 08/18/20 13:43 Acetaminophen < 5.0 ug/mL (10.0-30.0) L 08/15/20 07:32 Ur Barbiturates Screen Negative 08/18/20 13:43 Ur Phencyclidine Scrn Negative 08/18/20 13:43 Ur Amphetamines Screen Negative 08/18/20 13:43 U Benzodiazepines Scrn Negative 08/18/20 13:43 Urine Cocaine Screen Negative 08/18/20 13:43 U Marijuana (THC) Screen Negative 08/18/20 13:43 Drugs of Abuse Note Disclamer 08/18/20 13:43 Plasma/Serum Alcohol < 0.01 % (0-0.07) 08/15/20 06:00 Coronavirus (PCR) Negative (Negative) 08/16/20 Unknown Jones/IV: Voiding Method Condom Catheter IV Catheter Type [Right Upper PICC Line arm] IV Catheter Type [Left Forearm INT / Saline Lock ] IV Catheter Type [Right INT / Saline Lock Forearm] IV Catheter Type [Left Triple Lumen Cath Internal Jugular] IV Catheter Type [Right Peripheral IV Antecubital] IV Catheter Type [Left Hand] INT / Saline Lock Active Medications - Current Medications Current Medications: Generic Name Dose Route Start Last Admin Trade Name Freq PRN Reason Stop Dose Admin Acetaminophen 650 mg 08/22/20 21:50 Tylenol FEEDTUBE Q6H PRN Non Cardiac Pain or Temp>100.5 Lipase/Protease/Amylase 1 each 08/18/20 15:[address] 10,500 Unit FEEDTUBE PRN PRN For Clogged Feeding Tube Chlordiazepoxide HCl 25 mg 08/25/20 20:00 Librium PO 08/28/20 19:59 TID NADJA Enoxaparin Sodium 40 mg 08/16/20 22:00 08/24/20 21:43 Enoxaparin SUB-Q 40 mg QDAY@2200 NADJA Administration Protocol Famotidine 20 mg 08/19/20 10:00 08/25/20 10:12 Pepcid PO 20 mg BID NADJA Administration Fentanyl 50 mcg 08/16/20 10:30 Sublimaze IV Q10MIN PRN ANALGESIA Hydrophilic Ointment 1 applic 08/16/20 10:30 Vaseline Lip Therapy TP Q2HR PRN Dry Lips Fentanyl Citrate 2,000 mcg in 100 mls @ 5 mls/hr 08/16/20 11:00 08/25/20 14:05 Fentanyl Drip Premix IV 2 mcg/kg/hr TITR NADJA 10 mls/hr Titration Protocol 1 MCG/KG/HR Propofol 1,000 mg in 100 mls @ 2.82 mls/hr 08/17/20 15:09 08/20/20 07:00 Diprivan 10 Mg/Ml IV 0 mcg/kg/min TITR NADJA 0 mls/hr Titration Protocol 5 MCG/KG/MIN Insulin Glargine 35 units 08/24/20 22:00 08/24/20 21:43 Lantus SUB-Q 35 units QHS NADJA Administration Insulin Glargine 20 units 08/25/20 10:00 08/25/20 10:11 Lantus SUB-Q 20 units QAM NADJA Administration Insulin Human Lispro 0 unit 08/21/20 18:00 08/25/20 17:58 Humalog SUB-Q 4 unit Q6HR NADJA Administration Protocol Lorazepam 2 mg 08/15/20 21:26 08/24/20 10:03 Ativan IV 2 mg Q4H PRN Administration Agitation Multi-Ingred Cream/Lotion/Oil/Oint 1 applic 08/16/20 10:30 Artificial Tears Ophth Oint OU Q4HR PRN Dry Eye(s) Phenobarbital 60 mg 08/19/20 14:00 08/25/20 14:12 Phenobarbital FEEDTUBE 60 mg Q8HR NADJA Administration Quetiapine Fumarate 300 mg 08/24/20 22:00 08/25/20 10:11 Seroquel PO 300 mg BID NADJA Administration Simple Syrup 15 ml 08/18/20 15:18 Simple Syrup FEEDTUBE PRN PRN Hypoglycemia Simple Syrup 30 ml 08/18/20 15:18 Simple Syrup FEEDTUBE PRN PRN Hypoglycemia Sodium Bicarbonate 325 mg 08/18/20 15:18 Sodium Bicarbonate FEEDTUBE PRN PRN For Clogged Feeding Tube Nutrition/Malnutrition Assess - Dietary Evaluation Nutrition/Malnutrition Findings: Nutrition Notes Start: 08/16/20 13:15 Freq: Status: Active Protocol: Document 08/23/20 12:30 LUZ MARINA (Rec: 08/23/20 12:39 LUZ MARINA [id number]) Co-Sign 08/23/20 12:30 MK Nutrition Notes Initial or Follow up Reassessment Current Diagnosis Diabetes,Sepsis Other Pertinent Diagnosis Acute respiratory failure, acute encephalopathy, hx of alcohol abuse Current Diet Vital HP at 75 ml/hr (goal rate) Labs/Tests K 4.0 BUN 26 Cr 0.5 BG 257 Pertinent Medications Humalog Lantus KCl 40 mEq Height 5 ft 11 in Weight 100.8 kg [place] Body Weight (kg) 78.18 BMI 30.9 Weight Status Obese Subjective/Other Information F/u TF. TF running at goal. Noted high BG. Compared with Glucerna formula, provides similar CHO and other nutrients without the higher protein. Per RN, Alejandro not delivered. Called kitchen to deliver Alejandro. Percent of energy/protein needs met: 100%/100% Burn Absent Trauma Absent Current % PO Negligible Minimum of two criteria No physical signs of malnutrition #2 Nutrition Diagnosis Increased nutrient needs ( specify in comment below) Diagnosis Progress(for reassessment Continues documentation) #1 Nutrition Diagnosis Inadequate oral intake Diagnosis Progress(for reassessment Continues documentation) Is patient on ventilator? Yes Is Patient Ambulatory and/or Out of Bed No REE-(Lynn-St. Jeor-confined to bed) 2248.128 Kcal/Kg value to use for calculation 18 Approximate Energy Requirements Using 1814 kcal/Kg Calculation Used for Recommendations Kcal/kg Additional Notes Pro: 115-192g (1.2-2g/kg ABW) Fluid: 1ml/kcal Nutrition Intervention Change Diet Order: Continue TF Nutrition Support: Vital HP at 75 ml/hr (goal rate). Flush 50 ml q4h. Kcal 1,800 Protein (gm) 158 Fluid (mL) 1,504 Add Supplement/Snack (indicate name/kcal Alejandro BID /protein ) Provides kCal: 190 Provides Protein (gm) 5 Goal #1 Meet at least 80% of protein and energy needs via TF Goal #2 Wound healing Anticipated Discharge Needs: Unable to determine at this time Follow-Up By: 08/29/20 Additional Comments F/u stable TF
[2020-08-25] MEDS: chlordiazePOXIDE 25 MG CAP PO SCH (21:50)
[2020-08-25] MEDS: ENOXAPARIN 40 MG/0.4 ML INJ SUB-Q SCH (21:53)
[2020-08-26] MEDS: INSULIN LISPRO 100 UNIT/ML VIAL 3 mL SUB-Q SCH ×4 (00:37→18:02)
[2020-08-26] MEDS: PHENobarbital 20 MG/5 ML ORAL LIQD FEEDTUBE SCH ×3 (05:03→22:30)
[2020-08-26 05:56] LABS: Basophils % (Auto) 0.4 % (0.0-1.8); Eosinophils # (Auto) 0.2 K/mm3 (0.0-0.4); Eosinophils % (Auto) 2.1 % (0.0-4.3); Hematocrit 27.3 % (35.5-45.6); Hemoglobin 9.3 gm/dl (11.8-15.2); Lymphocytes # (Auto) 1.7 K/mm3 (1.2-5.4); Lymphocytes % (Auto) 20.1 % (13.4-35.0); Mean Corpuscular HGB Conc 34 % (32-34); Mean Corpuscular Volume 90 fl (84-94); Monocytes # (Auto) 0.8 K/mm3 (0.0-0.8); Platelet Count 229 K/mm3 (140-440); Red Blood Count 3.05 M/mm3 (3.65-5.03); Red Cell Distribution Width 14.8 % (13.2-15.2)
[2020-08-26 06:14] LABS: Alanine Aminotransferase 28 units/L (7-56); Albumin 2.6 g/dL (3.9-5); Blood Urea Nitrogen 23 mg/dL (9-20); Calcium 9.6 mg/dL (8.4-10.2); Hemolysis Index 2
[2020-08-26 06:19] LABS: BUN/Creatinine Ratio 46
[2020-08-26] MEDS: LORazepam 2 MG/ML VIAL IV PRN ×2 (06:43→22:39)
[2020-08-26] MEDS: INSULIN GLARGINE 100 UNITS/ML SUB-Q SCH ×2 (09:01→22:30)
[2020-08-26] MEDS: chlordiazePOXIDE 25 MG CAP PO SCH ×3 (09:01→22:30)
[2020-08-26] MEDS: FAMOTIDINE 20 MG TAB PO SCH ×2 (09:01→22:15)
[2020-08-26] MEDS: QUEtiapine 100 MG TAB PO SCH ×2 (09:01→22:34)
[2020-08-26] MEDS: fentaNYL DRIP Premix 2,000 MCG/100 ML BAG IV SCH ×2 (11:26→19:03)
--- NOTE | 2020-08-26 12:55 | Progress Note ---
Assessment and Plan Acute hypoxemic respiratory failure on MVS Acute encephalopathy, presumably toxic metabolic. Severe sepsis with shock. History of diabetes. History of a cerebrovascular accident with persistent left hemiparesis. History of alcohol abuse. Hypertension. Chronic pain syndrome. History of deep venous thrombosis. - continue Seroquel at 300 mg po bid re: agitation - continue Low dose Librium to spare IV sedation - continue daily SAT and SBT assessment as tolerated - continue to rest on AC qhs acutely - continue care as below otherwise; - continue to wean supplemental oxygen for target O2 sat's > 92% acutely - VAP bundle addressed - continue lung protective strategies - continue bronchodilators with pulmonary hygiene per RT - wean per pulmonary driven protocols otherwise - accuchecks with glycemic control per SSI (While critically ill target blood glucose of 140-180 mg/dL; avoid hypoglycemia) - sedation prn for target RASS 0 to -1 - avoid nephrotoxins, renally dose all medications - complete AB's per ID rec's - prn analgesia per CPOT score - Maintenance of sleep-wake cycle, avoid delirium - continue enteral nutritional support at goal rate as tolerated - G.I. & VTE prophylaxis - PT/OT/ROM exercises - continue mobility protocols for pressure ulcer prophylaxis - Monitor hemodynamics closely - continue other care per attending / other consultants - discharge planning ongoing concurrently .... Re-evaluate in am & prn CONDITION: CRITICAL PROGNOSIS: GUARDED CODE STATUS: FULL CODE The high probability of a clinically significant, sudden or life-threatening deterioration of the [respiratory, cardiovascular & neurologic] system(s) required my full and direct attention, intervention and personal management. The aggregate critical care time was [35] minutes without overlap. Time includes spent on; [x] Data Review and interpretation [x] Patient assessment and monitoring of vital signs [x] Documentation [x] Medication orders and management Subjective Date of service: 08/26/20 Principal diagnosis: Ac hypoxemic resp failure; Ac encephalopathy (toxic metabolic); Sev. Sepsis Interval history: Patient is seen today for: Acute hypoxemic respiratory failure; Acute encephalopathy (toxic metabolic); Severe sepsis with shock; DM II; CVA; alcohol abuse; HTN; DVT Seen and examined at bedside; 24hour events reviewed; nursing and respiratory care staff consulted; no adverse overnight events reported to me; resting in bed; on PSV trial and tolerating better today; still delirious; calmer with addition of librium; no emesis or overt aspiration Objective Vital Signs - 12hr 08/26/20 08/26/20 08/26/20 01:00 01:16 01:30 Temperature 98.9 F Pulse Rate 85 84 85 Pulse Rate [ 84 From Monitor] Respiratory 20 21 20 Rate Respiratory Rate [Chest] Blood Pressure 108/59 108/59 111/63 O2 Sat by Pulse 96 97 98 Oximetry 08/26/20 08/26/20 08/26/20 01:46 02:00 02:16 Temperature Pulse Rate 87 91 H 88 Pulse Rate [ From Monitor] Respiratory 16 20 20 Rate Respiratory Rate [Chest] Blood Pressure 111/63 123/73 123/73 O2 Sat by Pulse 99 99 99 Oximetry 08/26/20 08/26/20 08/26/20 02:30 02:46 03:00 Temperature Pulse Rate 87 86 85 Pulse Rate [ 83 From Monitor] Respiratory 20 20 20 Rate Respiratory Rate [Chest] Blood Pressure 128/75 128/75 121/67 O2 Sat by Pulse 99 97 97 Oximetry 08/26/20 08/26/20 08/26/20 03:16 03:30 03:38 Temperature Pulse Rate 84 88 85 Pulse Rate [ From Monitor] Respiratory 21 13 Rate Respiratory Rate [Chest] Blood Pressure 121/67 124/73 124/73 O2 Sat by Pulse 99 98 98 Oximetry 08/26/20 08/26/20 08/26/20 03:46 04:00 04:16 Temperature 98.7 F Pulse Rate 84 87 85 Pulse Rate [ From Monitor] Respiratory 13 22 20 Rate Respiratory Rate [Chest] Blood Pressure 124/73 120/70 120/70 O2 Sat by Pulse 98 97 95 Oximetry 08/26/20 08/26/20 08/26/20 04:26 04:30 04:46 Temperature Pulse Rate 85 100 H 97 H Pulse Rate [ 83 From Monitor] Respiratory 16 16 13 Rate Respiratory Rate [Chest] Blood Pressure 147/84 147/84 O2 Sat by Pulse 99 98 97 Oximetry 08/26/20 08/26/20 08/26/20 05:00 05:16 05:30 Temperature Pulse Rate 92 H 90 104 H Pulse Rate [ From Monitor] Respiratory 21 19 23 Rate Respiratory Rate [Chest] Blood Pressure 148/76 148/76 114/92 O2 Sat by Pulse 97 96 99 Oximetry 08/26/20 08/26/20 08/26/20 05:46 06:00 06:16 Temperature Pulse Rate 124 H 116 H 97 H Pulse Rate [ From Monitor] Respiratory 33 H 30 H 21 Rate Respiratory Rate [Chest] Blood Pressure 114/92 162/89 136/75 O2 Sat by Pulse 100 100 94 Oximetry 08/26/20 08/26/20 08/26/20 06:30 06:46 07:00 Temperature Pulse Rate 116 H 106 H 110 H Pulse Rate [ From Monitor] Respiratory 25 H 26 H 24 Rate Respiratory Rate [Chest] Blood Pressure 136/75 152/98 O2 Sat by Pulse 98 98 99 Oximetry 08/26/20 08/26/20 08/26/20 07:16 07:25 07:30 Temperature Pulse Rate 102 H 100 H 105 H Pulse Rate [ From Monitor] Respiratory 17 17 Rate Respiratory Rate [Chest] Blood Pressure 152/98 145/93 152/98 O2 Sat by Pulse 98 99 97 Oximetry 08/26/20 08/26/20 08/26/20 07:40 07:46 08:00 Temperature 99.5 F Pulse Rate 100 H 114 H Pulse Rate [ 109 H From Monitor] Respiratory 22 17 Rate Respiratory Rate [Chest] Blood Pressure 145/93 145/93 O2 Sat by Pulse 98 99 Oximetry 08/26/20 08/26/20 08/26/20 08:16 08:30 08:46 Temperature Pulse Rate 112 H 101 H 94 H Pulse Rate [ From Monitor] Respiratory 15 20 20 Rate Respiratory Rate [Chest] Blood Pressure 156/88 129/72 129/72 O2 Sat by Pulse 99 96 95 Oximetry 08/26/20 08/26/20 08/26/20 09:00 09:16 09:30 Temperature Pulse Rate 107 H 95 H 94 H Pulse Rate [ From Monitor] Respiratory 17 18 19 Rate Respiratory Rate [Chest] Blood Pressure 129/72 160/130 160/130 O2 Sat by Pulse 99 95 93 Oximetry 08/26/20 08/26/20 08/26/20 09:46 10:00 10:16 Temperature Pulse Rate 97 H 99 H 98 H Pulse Rate [ From Monitor] Respiratory 18 19 18 Rate Respiratory 20 Rate [Chest] Blood Pressure 120/66 133/69 133/69 O2 Sat by Pulse 95 96 97 Oximetry 08/26/20 08/26/20 08/26/20 10:30 10:46 11:00 Temperature Pulse Rate 96 H 94 H 93 H Pulse Rate [ From Monitor] Respiratory 16 18 17 Rate Respiratory Rate [Chest] Blood Pressure 119/68 119/68 130/71 O2 Sat by Pulse 98 98 98 Oximetry 08/26/20 08/26/20 08/26/20 11:16 11:30 11:46 Temperature Pulse Rate 93 H 91 H 93 H Pulse Rate [ From Monitor] Respiratory 21 18 22 Rate Respiratory Rate [Chest] Blood Pressure 130/71 118/66 135/73 O2 Sat by Pulse 98 99 99 Oximetry 08/26/20 12:00 Temperature 98.8 F Pulse Rate 92 H Pulse Rate [ 92 H From Monitor] Respiratory 22 Rate Respiratory Rate [Chest] Blood Pressure 118/66 O2 Sat by Pulse 98 Oximetry Constitutional: no acute distress, other (middle aged male with mildly increased respiratory effort at rest on MVS) Eyes: non-icteric ENT: oropharynx moist, other (ETT 23 cm [place]) Neck: supple, no lymphadenopathy, no JVD Effort: mildly labored Ascultation: Bilateral: diminished breath sounds, rhonchi (improved) Percussion: Bilateral: not dull Cardiovascular: regular rate and rhythm Gastrointestinal: normoactive bowel sounds, soft, non-tender, non-distended (protuberant) Integumentary: normal Extremities: no cyanosis, no edema, pink and warm, pulses normal, no ischemia or petechiae Neurologic: non-focal exam (grossly), pupils equal and round, motor strength normal and Psychiatric: other (sedate) CBC and BMP: 08/26/20 05:00 08/26/20 05:00 ABG, PT/INR, D-dimer: ABG ABG pH 7.463 (7.320-7.450) H 08/25/20 11:53 POC ABG pCO2 37.9 mmHg (32.0-48.0) 08/25/20 11:53 ABG pCO2 35.2 mm Hg 08/21/20 04:22 POC ABG pO2 95.1 mmHg (83-108) 08/25/20 11:53 ABG pO2 89.9 mm Hg (80.0-90.0) 08/21/20 04:22 POC ABG HCO3 26.5 08/25/20 11:53 ABG O2 Saturation 97.3 % (95.0-99.0) 08/21/20 04:22 PT/INR, D-dimer PT 13.9 Sec. (12.2-14.9) 08/16/20 Unknown INR 1.06 (0.87-1.13) 08/16/20 Unknown D-Dimer 882.17 ng/mlDDU (0-234) H 08/16/20 14:45 D-Dimer 925.88 ng/mlDDU (0-234) H 08/16/20 14:45 Abnormal lab findings: Abnormal Labs 08/15/20 08/15/20 08/15/20 06:00 07:32 07:32 WBC RBC Hgb Hct MCHC RDW [place] % (Auto) [place] # (Auto) Seg Neutrophils % Seg Neutrophils # APTT D-Dimer ABG pH POC ABG pO2 ABG pO2 ABG HCO3 ABG Base Excess ABG Hemoglobin ABG Sodium ABG Potassium ABG Chloride ABG Glucose Oxyhemoglobin Carboxyhemoglobin Sodium 132 L Potassium Chloride 94.3 L Carbon Dioxide 19 L BUN 45 H Creatinine 1.6 H Glucose 285 H POC Glucose Calcium 10.4 H Phosphorus Magnesium Alkaline Phosphatase Total Creatine Kinase 446 H CK-MB (CK-2) 8.8 H C-Reactive Protein Total Protein Albumin 3.7 L Triglycerides Arterial Blood Glucose Arterial Blood Ionized Calcium Salicylates < 0.3 L Acetaminophen < 5.0 L 08/15/20 08/15/20 08/15/20 10:20 10:45 21:10 WBC RBC Hgb Hct MCHC RDW [place] % (Auto) [place] # (Auto) Seg Neutrophils % Seg Neutrophils # APTT D-Dimer ABG pH 7.338 L POC ABG pO2 110.3 H ABG pO2 105.9 H ABG HCO3 19.2 L ABG Base Excess -5.9 L ABG Hemoglobin 10.2 L 12.3 L ABG Sodium ABG Potassium ABG Chloride ABG Glucose Oxyhemoglobin Carboxyhemoglobin 1.7 H Sodium Potassium Chloride Carbon Dioxide BUN Creatinine Glucose 297 H POC Glucose Calcium Phosphorus Magnesium Alkaline Phosphatase Total Creatine Kinase CK-MB (CK-2) C-Reactive Protein Total Protein Albumin Triglycerides Arterial Blood Glucose Arterial Blood Ionized Calcium Salicylates Acetaminophen 08/16/20 08/16/20 08/16/20 04:30 08:59 14:45 WBC RBC Hgb Hct 35.3 L MCHC RDW 15.7 H [place] % (Auto) [place] # (Auto) Seg Neutrophils % Seg Neutrophils # APTT D-Dimer ABG pH 7.345 L POC ABG pO2 ABG pO2 134.5 H ABG HCO3 ABG Base Excess -5.2 L ABG Hemoglobin 12.1 L ABG Sodium ABG Potassium ABG Chloride ABG Glucose Oxyhemoglobin Carboxyhemoglobin Sodium Potassium 3.4 L Chloride 109.0 H Carbon Dioxide BUN 32 H Creatinine Glucose 186 H POC Glucose Calcium Phosphorus Magnesium Alkaline Phosphatase Total Creatine Kinase CK-MB (CK-2) C-Reactive Protein Total Protein 6.0 L Albumin 3.1 L Triglycerides Arterial Blood Glucose Arterial Blood Ionized Calcium Salicylates Acetaminophen 08/16/20 08/16/20 08/16/20 14:45 14:45 14:45 WBC RBC Hgb Hct MCHC RDW [place] % (Auto) [place] # (Auto) Seg Neutrophils % Seg Neutrophils # APTT D-Dimer 925.88 H 882.17 H ABG pH POC ABG pO2 ABG pO2 ABG HCO3 ABG Base Excess ABG Hemoglobin ABG Sodium ABG Potassium ABG Chloride ABG Glucose Oxyhemoglobin Carboxyhemoglobin Sodium Potassium Chloride Carbon Dioxide BUN Creatinine Glucose POC Glucose Calcium Phosphorus 1.50 L Magnesium 1.60 L Alkaline Phosphatase Total Creatine Kinase CK-MB (CK-2) C-Reactive Protein Total Protein Albumin Triglycerides Arterial Blood Glucose Arterial Blood Ionized Calcium Salicylates Acetaminophen 08/16/20 08/16/20 08/16/20 14:45 17:42 Unknown WBC 16.7 H RBC Hgb Hct MCHC RDW [place] % (Auto) [place] # (Auto) 1.0 H Seg Neutrophils % 79.9 H Seg Neutrophils # 13.4 H APTT D-Dimer ABG pH POC ABG pO2 ABG pO2 ABG HCO3 ABG Base Excess ABG Hemoglobin ABG Sodium ABG Potassium ABG Chloride ABG Glucose Oxyhemoglobin Carboxyhemoglobin Sodium Potassium Chloride Carbon Dioxide BUN Creatinine Glucose POC Glucose 169 H Calcium Phosphorus Magnesium Alkaline Phosphatase Total Creatine Kinase CK-MB (CK-2) C-Reactive Protein 2.70 H Total Protein Albumin Triglycerides Arterial Blood Glucose Arterial Blood Ionized Calcium Salicylates Acetaminophen 08/16/20 08/16/20 08/17/20 Unknown Unknown 00:06 WBC RBC Hgb Hct MCHC RDW [place] % (Auto) [place] # (Auto) Seg Neutrophils % Seg Neutrophils # APTT 23.9 L D-Dimer ABG pH POC ABG pO2 ABG pO2 ABG HCO3 ABG Base Excess ABG Hemoglobin ABG Sodium ABG Potassium ABG Chloride ABG Glucose Oxyhemoglobin Carboxyhemoglobin Sodium Potassium Chloride Carbon Dioxide 17 L BUN 33 H Creatinine Glucose 233 H POC Glucose 125 H Calcium Phosphorus Magnesium Alkaline Phosphatase Total Creatine Kinase CK-MB (CK-2) C-Reactive Protein Total Protein Albumin Triglycerides Arterial Blood Glucose Arterial Blood Ionized Calcium Salicylates Acetaminophen 08/17/20 08/17/20 08/17/20 03:40 05:52 12:30 WBC RBC Hgb Hct MCHC RDW [place] % (Auto) [place] # (Auto) Seg Neutrophils % Seg Neutrophils # APTT D-Dimer ABG pH POC ABG pO2 60.8 L ABG pO2 ABG HCO3 ABG Base Excess ABG Hemoglobin ABG Sodium ABG Potassium ABG Chloride 115.0 H ABG Glucose 139 H Oxyhemoglobin Carboxyhemoglobin Sodium Potassium Chloride Carbon Dioxide BUN Creatinine Glucose POC Glucose 139 H 133 H Calcium Phosphorus Magnesium Alkaline Phosphatase Total Creatine Kinase CK-MB (CK-2) C-Reactive Protein Total Protein Albumin Triglycerides Arterial Blood Glucose 139 H Arterial Blood Ionized Calcium 5.5 H Salicylates Acetaminophen 08/17/20 08/18/20 08/18/20 17:47 00:08 04:00 WBC RBC Hgb Hct MCHC RDW [place] % (Auto) [place] # (Auto) Seg Neutrophils % Seg Neutrophils # APTT D-Dimer ABG pH 7.315 L POC ABG pO2 ABG pO2 75.1 L ABG HCO3 ABG Base Excess -4.3 L ABG Hemoglobin 11.9 L ABG Sodium ABG Potassium ABG Chloride ABG Glucose Oxyhemoglobin 93.7 L Carboxyhemoglobin Sodium Potassium Chloride Carbon Dioxide BUN Creatinine Glucose POC Glucose 157 H 129 H Calcium Phosphorus Magnesium Alkaline Phosphatase Total Creatine Kinase CK-MB (CK-2) C-Reactive Protein Total Protein Albumin Triglycerides Arterial Blood Glucose Arterial Blood Ionized Calcium Salicylates Acetaminophen 08/18/20 08/18/20 08/19/20 05:31 12:26 00:02 WBC RBC Hgb Hct MCHC RDW [place] % (Auto) [place] # (Auto) Seg Neutrophils % Seg Neutrophils # APTT D-Dimer ABG pH POC ABG pO2 ABG pO2 ABG HCO3 ABG Base Excess ABG Hemoglobin ABG Sodium ABG Potassium ABG Chloride ABG Glucose Oxyhemoglobin Carboxyhemoglobin Sodium Potassium Chloride Carbon Dioxide BUN Creatinine Glucose POC Glucose 114 H 112 H 107 H Calcium Phosphorus Magnesium Alkaline Phosphatase Total Creatine Kinase CK-MB (CK-2) C-Reactive Protein Total Protein Albumin Triglycerides Arterial Blood Glucose Arterial Blood Ionized Calcium Salicylates Acetaminophen 08/19/20 08/19/20 08/19/20 04:19 05:34 12:48 WBC RBC Hgb Hct MCHC RDW [place] % (Auto) [place] # (Auto) Seg Neutrophils % Seg Neutrophils # APTT D-Dimer ABG pH 7.451 H POC ABG pO2 172.9 H ABG pO2 ABG HCO3 ABG Base Excess ABG Hemoglobin ABG Sodium ABG Potassium ABG Chloride ABG Glucose Oxyhemoglobin Carboxyhemoglobin Sodium Potassium Chloride Carbon Dioxide BUN Creatinine Glucose POC Glucose 114 H 198 H Calcium Phosphorus Magnesium Alkaline Phosphatase Total Creatine Kinase CK-MB (CK-2) C-Reactive Protein Total Protein Albumin Triglycerides Arterial Blood Glucose Arterial Blood Ionized Calcium Salicylates Acetaminophen 08/19/20 08/19/20 08/20/20 18:01 21:40 05:00 WBC RBC Hgb Hct MCHC RDW [place] % (Auto) [place] # (Auto) Seg Neutrophils % Seg Neutrophils # APTT D-Dimer ABG pH POC ABG pO2 72.1 L ABG pO2 ABG HCO3 ABG Base Excess ABG Hemoglobin ABG Sodium 132.4 L ABG Potassium 2.7 L ABG Chloride ABG Glucose 293 H Oxyhemoglobin Carboxyhemoglobin Sodium Potassium Chloride Carbon Dioxide BUN Creatinine Glucose POC Glucose 211 H 252 H Calcium Phosphorus Magnesium Alkaline Phosphatase Total Creatine Kinase CK-MB (CK-2) C-Reactive Protein Total Protein Albumin Triglycerides Arterial Blood Glucose 293 H Arterial Blood Ionized Calcium Salicylates Acetaminophen 08/20/20 08/20/20 08/20/20 05:15 07:06 07:45 WBC RBC Hgb Hct MCHC RDW [place] % (Auto) [place] # (Auto) Seg Neutrophils % Seg Neutrophils # APTT D-Dimer ABG pH POC ABG pO2 ABG pO2 ABG HCO3 ABG Base Excess ABG Hemoglobin ABG Sodium ABG Potassium ABG Chloride ABG Glucose Oxyhemoglobin Carboxyhemoglobin Sodium Potassium 2.9 L* Chloride Carbon Dioxide BUN Creatinine 0.6 L Glucose 304 H POC Glucose 238 H Calcium Phosphorus Magnesium Alkaline Phosphatase Total Creatine Kinase CK-MB (CK-2) C-Reactive Protein Total Protein Albumin Triglycerides 260 H Arterial Blood Glucose Arterial Blood Ionized Calcium Salicylates Acetaminophen 08/20/20 08/20/20 08/21/20 12:20 17:49 00:18 WBC RBC Hgb Hct MCHC RDW [place] % (Auto) [place] # (Auto) Seg Neutrophils % Seg Neutrophils # APTT D-Dimer ABG pH POC ABG pO2 ABG pO2 ABG HCO3 ABG Base Excess ABG Hemoglobin ABG Sodium ABG Potassium ABG Chloride ABG Glucose Oxyhemoglobin Carboxyhemoglobin Sodium Potassium Chloride Carbon Dioxide BUN Creatinine Glucose POC Glucose 303 H 302 H 254 H Calcium Phosphorus Magnesium Alkaline Phosphatase Total Creatine Kinase CK-MB (CK-2) C-Reactive Protein Total Protein Albumin Triglycerides Arterial Blood Glucose Arterial Blood Ionized Calcium Salicylates Acetaminophen 08/21/20 08/21/20 08/21/20 04:05 04:05 04:22 WBC RBC 3.50 L Hgb 10.9 L Hct 31.3 L MCHC 35 H RDW [place] % (Auto) [place] # (Auto) Seg Neutrophils % Seg Neutrophils # APTT D-Dimer ABG pH POC ABG pO2 ABG pO2 ABG HCO3 ABG Base Excess ABG Hemoglobin 10.9 L ABG Sodium ABG Potassium ABG Chloride ABG Glucose Oxyhemoglobin Carboxyhemoglobin Sodium Potassium 3.5 L D Chloride Carbon Dioxide BUN 24 H Creatinine 0.5 L Glucose 274 H POC Glucose Calcium Phosphorus Magnesium Alkaline Phosphatase Total Creatine Kinase CK-MB (CK-2) C-Reactive Protein Total Protein Albumin Triglycerides Arterial Blood Glucose Arterial Blood Ionized Calcium Salicylates Acetaminophen 08/21/20 08/21/20 08/21/20 05:13 11:30 17:37 WBC RBC Hgb Hct MCHC RDW [place] % (Auto) [place] # (Auto) Seg Neutrophils % Seg Neutrophils # APTT D-Dimer ABG pH POC ABG pO2 ABG pO2 ABG HCO3 ABG Base Excess ABG Hemoglobin ABG Sodium ABG Potassium ABG Chloride ABG Glucose Oxyhemoglobin Carboxyhemoglobin Sodium Potassium Chloride Carbon Dioxide BUN Creatinine Glucose POC Glucose 240 H 296 H 272 H Calcium Phosphorus Magnesium Alkaline Phosphatase Total Creatine Kinase CK-MB (CK-2) C-Reactive Protein Total Protein Albumin Triglycerides Arterial Blood Glucose Arterial Blood Ionized Calcium Salicylates Acetaminophen 08/21/20 08/22/20 08/22/20 Unknown 00:42 04:00 WBC RBC Hgb 11.2 L Hct 33.1 L MCHC RDW [place] % (Auto) [place] # (Auto) Seg Neutrophils % Seg Neutrophils # APTT D-Dimer ABG pH POC ABG pO2 ABG pO2 ABG HCO3 ABG Base Excess ABG Hemoglobin ABG Sodium ABG Potassium ABG Chloride ABG Glucose Oxyhemoglobin Carboxyhemoglobin Sodium Potassium Chloride Carbon Dioxide BUN Creatinine Glucose POC Glucose 278 H Calcium Phosphorus Magnesium 1.30 L Alkaline Phosphatase Total Creatine Kinase CK-MB (CK-2) C-Reactive Protein Total Protein Albumin Triglycerides Arterial Blood Glucose Arterial Blood Ionized Calcium Salicylates Acetaminophen 08/22/20 08/22/20 08/22/20 04:00 05:31 05:52 WBC RBC Hgb Hct MCHC RDW [place] % (Auto) [place] # (Auto) Seg Neutrophils % Seg Neutrophils # APTT D-Dimer ABG pH POC ABG pO2 64.0 L ABG pO2 ABG HCO3 ABG Base Excess ABG Hemoglobin 11.9 L ABG Sodium ABG Potassium ABG Chloride ABG Glucose 238 H Oxyhemoglobin Carboxyhemoglobin Sodium Potassium 3.4 L Chloride Carbon Dioxide BUN 23 H Creatinine 0.5 L Glucose 266 H POC Glucose 236 H Calcium Phosphorus Magnesium Alkaline Phosphatase Total Creatine Kinase CK-MB (CK-2) C-Reactive Protein Total Protein Albumin Triglycerides Arterial Blood Glucose 238 H Arterial Blood Ionized Calcium Salicylates Acetaminophen 08/22/20 08/22/20 08/22/20 12:51 13:37 17:14 WBC RBC Hgb Hct MCHC RDW [place] % (Auto) [place] # (Auto) Seg Neutrophils % Seg Neutrophils # APTT D-Dimer ABG pH POC ABG pO2 ABG pO2 ABG HCO3 ABG Base Excess ABG Hemoglobin ABG Sodium ABG Potassium ABG Chloride ABG Glucose Oxyhemoglobin Carboxyhemoglobin Sodium Potassium Chloride Carbon Dioxide BUN Creatinine Glucose POC Glucose 279 H 287 H Calcium Phosphorus Magnesium 1.60 L Alkaline Phosphatase Total Creatine Kinase CK-MB (CK-2) C-Reactive Protein Total Protein Albumin Triglycerides Arterial Blood Glucose Arterial Blood Ionized Calcium Salicylates Acetaminophen 08/23/20 08/23/20 08/23/20 00:03 04:29 04:29 WBC RBC 3.43 L Hgb 10.7 L Hct 30.9 L MCHC 35 H RDW [place] % (Auto) [place] # (Auto) Seg Neutrophils % Seg Neutrophils # APTT D-Dimer ABG pH POC ABG pO2 ABG pO2 ABG HCO3 ABG Base Excess ABG Hemoglobin ABG Sodium ABG Potassium ABG Chloride ABG Glucose Oxyhemoglobin Carboxyhemoglobin Sodium Potassium Chloride Carbon Dioxide BUN 26 H Creatinine 0.5 L Glucose 257 H POC Glucose 312 H Calcium Phosphorus Magnesium Alkaline Phosphatase Total Creatine Kinase CK-MB (CK-2) C-Reactive Protein Total Protein Albumin Triglycerides Arterial Blood Glucose Arterial Blood Ionized Calcium Salicylates Acetaminophen 08/23/20 08/23/20 08/23/20 05:27 12:36 13:35 WBC RBC Hgb Hct MCHC RDW [place] % (Auto) [place] # (Auto) Seg Neutrophils % Seg Neutrophils # APTT D-Dimer ABG pH POC ABG pO2 ABG pO2 ABG HCO3 ABG Base Excess ABG Hemoglobin ABG Sodium ABG Potassium ABG Chloride ABG Glucose 301 H Oxyhemoglobin Carboxyhemoglobin Sodium Potassium Chloride Carbon Dioxide BUN Creatinine Glucose POC Glucose 235 H 282 H Calcium Phosphorus Magnesium Alkaline Phosphatase Total Creatine Kinase CK-MB (CK-2) C-Reactive Protein Total Protein Albumin Triglycerides Arterial Blood Glucose 301 H Arterial Blood Ionized Calcium Salicylates Acetaminophen 08/23/20 08/23/20 08/23/20 17:58 22:34 23:48 WBC RBC Hgb Hct MCHC RDW [place] % (Auto) [place] # (Auto) Seg Neutrophils % Seg Neutrophils # APTT D-Dimer ABG pH POC ABG pO2 ABG pO2 ABG HCO3 ABG Base Excess ABG Hemoglobin ABG Sodium ABG Potassium ABG Chloride ABG Glucose Oxyhemoglobin Carboxyhemoglobin Sodium Potassium Chloride Carbon Dioxide BUN Creatinine Glucose POC Glucose 313 H 271 H 298 H Calcium Phosphorus Magnesium Alkaline Phosphatase Total Creatine Kinase CK-MB (CK-2) C-Reactive Protein Total Protein Albumin Triglycerides Arterial Blood Glucose Arterial Blood Ionized Calcium Salicylates Acetaminophen 08/24/20 08/24/20 08/24/20 04:19 04:19 06:19 WBC RBC 3.40 L Hgb 10.4 L Hct 30.9 L MCHC RDW [place] % (Auto) 9.1 H [place] # (Auto) Seg Neutrophils % 73.8 H Seg Neutrophils # APTT D-Dimer ABG pH POC ABG pO2 ABG pO2 ABG HCO3 ABG Base Excess ABG Hemoglobin ABG Sodium ABG Potassium ABG Chloride ABG Glucose Oxyhemoglobin Carboxyhemoglobin Sodium Potassium Chloride Carbon Dioxide BUN 22 H Creatinine 0.5 L Glucose 296 H POC Glucose 328 H Calcium Phosphorus Magnesium Alkaline Phosphatase 147 H Total Creatine Kinase CK-MB (CK-2) C-Reactive Protein Total Protein 5.9 L Albumin 2.6 L Triglycerides Arterial Blood Glucose Arterial Blood Ionized Calcium Salicylates Acetaminophen 08/24/20 08/24/20 08/24/20 12:15 17:20 21:59 WBC RBC Hgb Hct MCHC RDW [place] % (Auto) [place] # (Auto) Seg Neutrophils % Seg Neutrophils # APTT D-Dimer ABG pH POC ABG pO2 ABG pO2 ABG HCO3 ABG Base Excess ABG Hemoglobin ABG Sodium ABG Potassium ABG Chloride ABG Glucose Oxyhemoglobin Carboxyhemoglobin Sodium Potassium Chloride Carbon Dioxide BUN Creatinine Glucose POC Glucose 251 H 345 H 249 H Calcium Phosphorus Magnesium Alkaline Phosphatase Total Creatine Kinase CK-MB (CK-2) C-Reactive Protein Total Protein Albumin Triglycerides Arterial Blood Glucose Arterial Blood Ionized Calcium Salicylates Acetaminophen 08/25/20 08/25/20 08/25/20 00:23 04:33 04:33 WBC 14.9 H RBC 3.22 L Hgb 9.9 L Hct 28.5 L MCHC 35 H RDW [place] % (Auto) [place] # (Auto) 1.0 H Seg Neutrophils % 71.9 H Seg Neutrophils # 10.6 H APTT D-Dimer ABG pH POC ABG pO2 ABG pO2 ABG HCO3 ABG Base Excess ABG Hemoglobin ABG Sodium ABG Potassium ABG Chloride ABG Glucose Oxyhemoglobin Carboxyhemoglobin Sodium 136 L Potassium Chloride Carbon Dioxide BUN 21 H Creatinine 0.5 L Glucose 225 H POC Glucose 269 H Calcium Phosphorus Magnesium Alkaline Phosphatase 166 H Total Creatine Kinase CK-MB (CK-2) C-Reactive Protein Total Protein 6.0 L Albumin 2.3 L Triglycerides Arterial Blood Glucose Arterial Blood Ionized Calcium Salicylates Acetaminophen 08/25/20 08/25/20 08/25/20 05:34 11:53 12:39 WBC RBC Hgb Hct MCHC RDW [place] % (Auto) [place] # (Auto) Seg Neutrophils % Seg Neutrophils # APTT D-Dimer ABG pH 7.463 H POC ABG pO2 ABG pO2 ABG HCO3 ABG Base Excess ABG Hemoglobin 10.3 L ABG Sodium 135.3 L ABG Potassium ABG Chloride ABG Glucose 254 H Oxyhemoglobin Carboxyhemoglobin Sodium Potassium Chloride Carbon Dioxide BUN Creatinine Glucose POC Glucose 215 H 291 H Calcium Phosphorus Magnesium Alkaline Phosphatase Total Creatine Kinase CK-MB (CK-2) C-Reactive Protein Total Protein Albumin Triglycerides Arterial Blood Glucose 254 H Arterial Blood Ionized Calcium Salicylates Acetaminophen 08/25/20 08/25/20 08/25/20 18:04 21:41 23:45 WBC RBC Hgb Hct MCHC RDW [place] % (Auto) [place] # (Auto) Seg Neutrophils % Seg Neutrophils # APTT D-Dimer ABG pH POC ABG pO2 ABG pO2 ABG HCO3 ABG Base Excess ABG Hemoglobin ABG Sodium ABG Potassium ABG Chloride ABG Glucose Oxyhemoglobin Carboxyhemoglobin Sodium Potassium Chloride Carbon Dioxide BUN Creatinine Glucose POC Glucose 200 H 136 H 191 H Calcium Phosphorus Magnesium Alkaline Phosphatase Total Creatine Kinase CK-MB (CK-2) C-Reactive Protein Total Protein Albumin Triglycerides Arterial Blood Glucose Arterial Blood Ionized Calcium Salicylates Acetaminophen 08/26/20 08/26/20 08/26/20 04:49 05:00 05:00 WBC RBC 3.05 L Hgb 9.3 L Hct 27.3 L MCHC RDW [place] % (Auto) 9.0 H [place] # (Auto) Seg Neutrophils % Seg Neutrophils # APTT D-Dimer ABG pH POC ABG pO2 ABG pO2 ABG HCO3 ABG Base Excess ABG Hemoglobin ABG Sodium ABG Potassium ABG Chloride ABG Glucose Oxyhemoglobin Carboxyhemoglobin Sodium Potassium Chloride Carbon Dioxide BUN 23 H Creatinine 0.5 L Glucose 220 H POC Glucose 251 H Calcium Phosphorus Magnesium Alkaline Phosphatase 197 H Total Creatine Kinase CK-MB (CK-2) C-Reactive Protein Total Protein 5.9 L Albumin 2.6 L Triglycerides Arterial Blood Glucose Arterial Blood Ionized Calcium Salicylates Acetaminophen 08/26/20 12:09 WBC RBC Hgb Hct MCHC RDW [place] % (Auto) [place] # (Auto) Seg Neutrophils % Seg Neutrophils # APTT D-Dimer ABG pH POC ABG pO2 ABG pO2 ABG HCO3 ABG Base Excess ABG Hemoglobin ABG Sodium ABG Potassium ABG Chloride ABG Glucose Oxyhemoglobin Carboxyhemoglobin Sodium Potassium Chloride Carbon Dioxide BUN Creatinine Glucose POC Glucose 263 H Calcium Phosphorus Magnesium Alkaline Phosphatase Total Creatine Kinase CK-MB (CK-2) C-Reactive Protein Total Protein Albumin Triglycerides Arterial Blood Glucose Arterial Blood Ionized Calcium Salicylates Acetaminophen Chest x-ray: other (none today) Allied health notes reviewed: nursing
--- NOTE | 2020-08-26 13:33 | Progress Note ---
Assessment and Plan (1) Acute hypoxemic respiratory failure Current Visit: Yes Status: Acute Plan to address problem: Patient currently intubated and ambulatory support, wean vent as tolerated, critical care team consulted, sedation holiday, spontaneous breathing trial daily, The high probability of a clinically significant, sudden or life threatening deterioration of the [cardiac, pulmonary, neuro] system(s) required my full and direct attention, intervention and personal management. The aggregate critical care time was [90] minutes. This time is in addition to time spent performing reported procedures but includes the following: [x] Data Review and interpretation [x] Patient assessment and monitoring of vital signs [x] Documentation [x] Medication orders and management (2) Acute metabolic encephalopathy Current Visit: Yes Status: Acute Plan to address problem: Supportive care, continue medical management. (3) Cerebrovascular accident (CVA) with left hemiparesis Current Visit: Yes Status: Chronic Plan to address problem: Supportive care, continue medical management. (4) Type 2 diabetes mellitus Current Visit: Yes Status: Chronic Qualifiers: Diabetes mellitus manager terminal insulin use: unspecified manager terminal insulin use status Plan to address problem: Sliding-scale insulin therapy, Accu-Chek, hypoglycemia protocol. (5) DVT prophylaxis Current Visit: Yes Status: Acute Plan to address problem: SCD to bilateral lower extremities while in bed, prophylactic anticoagulation Subjective Date of service: 08/26/20 Principal diagnosis: Ac hypoxemic resp failure; Ac encephalopathy (toxic metabolic); Sev. Sepsis Interval history: 55 YO Male HD #11 with acute hypoxemic respiratory failure, acute metabolic encephalopathy, septic shock, diabetic foot infection CVA with left hemiparesis. Patient currently intubated and on vent support. No significant improvement overnight. No acute decompensation overnight. No reported nursing events. Patient currently off pressors. No clinical signs of pain. Patient remains altered will reach out hand to grab but does not make eye contact. Objective - Constitutional Vitals: Vital Signs - 12hr 08/26/20 08/26/20 08/26/20 01:46 02:00 02:16 Temperature Pulse Rate 87 91 H 88 Pulse Rate [ From Monitor] Respiratory 16 20 20 Rate Respiratory Rate [Chest] Blood Pressure 111/63 123/73 123/73 O2 Sat by Pulse 99 99 99 Oximetry 08/26/20 08/26/20 08/26/20 02:30 02:46 03:00 Temperature Pulse Rate 87 86 85 Pulse Rate [ 83 From Monitor] Respiratory 20 20 20 Rate Respiratory Rate [Chest] Blood Pressure 128/75 128/75 121/67 O2 Sat by Pulse 99 97 97 Oximetry 08/26/20 08/26/20 08/26/20 03:16 03:30 03:38 Temperature Pulse Rate 84 88 85 Pulse Rate [ From Monitor] Respiratory 21 13 Rate Respiratory Rate [Chest] Blood Pressure 121/67 124/73 124/73 O2 Sat by Pulse 99 98 98 Oximetry 08/26/20 08/26/20 08/26/20 03:46 04:00 04:16 Temperature 98.7 F Pulse Rate 84 87 85 Pulse Rate [ From Monitor] Respiratory 13 22 20 Rate Respiratory Rate [Chest] Blood Pressure 124/73 120/70 120/70 O2 Sat by Pulse 98 97 95 Oximetry 08/26/20 08/26/20 08/26/20 04:26 04:30 04:46 Temperature Pulse Rate 85 100 H 97 H Pulse Rate [ 83 From Monitor] Respiratory 16 16 13 Rate Respiratory Rate [Chest] Blood Pressure 147/84 147/84 O2 Sat by Pulse 99 98 97 Oximetry 08/26/20 08/26/20 08/26/20 05:00 05:16 05:30 Temperature Pulse Rate 92 H 90 104 H Pulse Rate [ From Monitor] Respiratory 21 19 23 Rate Respiratory Rate [Chest] Blood Pressure 148/76 148/76 114/92 O2 Sat by Pulse 97 96 99 Oximetry 08/26/20 08/26/20 08/26/20 05:46 06:00 06:16 Temperature Pulse Rate 124 H 116 H 97 H Pulse Rate [ From Monitor] Respiratory 33 H 30 H 21 Rate Respiratory Rate [Chest] Blood Pressure 114/92 162/89 136/75 O2 Sat by Pulse 100 100 94 Oximetry 08/26/20 08/26/20 08/26/20 06:30 06:46 07:00 Temperature Pulse Rate 116 H 106 H 110 H Pulse Rate [ From Monitor] Respiratory 25 H 26 H 24 Rate Respiratory Rate [Chest] Blood Pressure 136/75 152/98 O2 Sat by Pulse 98 98 99 Oximetry 08/26/20 08/26/20 08/26/20 07:16 07:25 07:30 Temperature Pulse Rate 102 H 100 H 105 H Pulse Rate [ From Monitor] Respiratory 17 17 Rate Respiratory Rate [Chest] Blood Pressure 152/98 145/93 152/98 O2 Sat by Pulse 98 99 97 Oximetry 08/26/20 08/26/20 08/26/20 07:40 07:46 08:00 Temperature 99.5 F Pulse Rate 100 H 114 H Pulse Rate [ 109 H From Monitor] Respiratory 22 17 Rate Respiratory Rate [Chest] Blood Pressure 145/93 145/93 O2 Sat by Pulse 98 99 Oximetry 08/26/20 08/26/20 08/26/20 08:16 08:30 08:46 Temperature Pulse Rate 112 H 101 H 94 H Pulse Rate [ From Monitor] Respiratory 15 20 20 Rate Respiratory Rate [Chest] Blood Pressure 156/88 129/72 129/72 O2 Sat by Pulse 99 96 95 Oximetry 08/26/20 08/26/20 08/26/20 09:00 09:16 09:30 Temperature Pulse Rate 107 H 95 H 94 H Pulse Rate [ From Monitor] Respiratory 17 18 19 Rate Respiratory Rate [Chest] Blood Pressure 129/72 160/130 160/130 O2 Sat by Pulse 99 95 93 Oximetry 08/26/20 08/26/20 08/26/20 09:46 10:00 10:16 Temperature Pulse Rate 97 H 99 H 98 H Pulse Rate [ From Monitor] Respiratory 18 19 18 Rate Respiratory 20 Rate [Chest] Blood Pressure 120/66 133/69 133/69 O2 Sat by Pulse 95 96 97 Oximetry 08/26/20 08/26/20 08/26/20 10:30 10:46 11:00 Temperature Pulse Rate 96 H 94 H 93 H Pulse Rate [ From Monitor] Respiratory 16 18 17 Rate Respiratory Rate [Chest] Blood Pressure 119/68 119/68 130/71 O2 Sat by Pulse 98 98 98 Oximetry 08/26/20 08/26/20 08/26/20 11:16 11:30 11:46 Temperature Pulse Rate 93 H 91 H 93 H Pulse Rate [ From Monitor] Respiratory 21 18 22 Rate Respiratory Rate [Chest] Blood Pressure 130/71 118/66 135/73 O2 Sat by Pulse 98 99 99 Oximetry 08/26/20 12:00 Temperature 98.8 F Pulse Rate 92 H Pulse Rate [ 92 H From Monitor] Respiratory 22 Rate Respiratory Rate [Chest] Blood Pressure 118/66 O2 Sat by Pulse 98 Oximetry General appearance: Present: no acute distress, well-nourished - Respiratory Respiratory effort: normal, labored Respiratory: bilateral: diminished, rhonchi (Decreased breath sounds.) - Cardiovascular Rhythm: regularly irregular Heart Sounds: Present: S1 & S2. Absent: gallop, rub Extremities: pulses intact, No edema, normal color, Full ROM Extremity abnormal: other (Decreased distal pulses.) - Gastrointestinal General gastrointestinal: Present: soft, non-tender, non-distended, normal bowel sounds - Musculoskeletal Musculoskeletal: other (Atrophy deconditioning debility) - Labs CBC & Chem 7: 08/26/20 05:00 08/26/20 05:00 Labs: Abnormal lab results 08/25/20 08/25/20 08/25/20 Range/Units 18:04 21:41 23:45 RBC (3.65-5.03) M/mm3 Hgb (11.8-15.2) gm/dl Hct (35.5-45.6) % [place] % (Auto) (0.0-7.3) % BUN (9-20) mg/dL Creatinine (0.8-1.3) mg/dL Glucose (75-100) mg/dL POC Glucose 200 H 136 H 191 H (70-105) mg/dL Alkaline Phosphatase (35-129) units/L Total Protein (6.3-8.2) g/dL Albumin (3.9-5) g/dL 08/26/20 08/26/20 08/26/20 Range/Units 04:49 05:00 05:00 RBC 3.05 L (3.65-5.03) M/mm3 Hgb 9.3 L (11.8-15.2) gm/dl Hct 27.3 L (35.5-45.6) % [place] % (Auto) 9.0 H (0.0-7.3) % BUN 23 H (9-20) mg/dL Creatinine 0.5 L (0.8-1.3) mg/dL Glucose 220 H (75-100) mg/dL POC Glucose 251 H (70-105) mg/dL Alkaline Phosphatase 197 H (35-129) units/L Total Protein 5.9 L (6.3-8.2) g/dL Albumin 2.6 L (3.9-5) g/dL 08/26/20 Range/Units 12:09 RBC (3.65-5.03) M/mm3 Hgb (11.8-15.2) gm/dl Hct (35.5-45.6) % [place] % (Auto) (0.0-7.3) % BUN (9-20) mg/dL Creatinine (0.8-1.3) mg/dL Glucose (75-100) mg/dL POC Glucose 263 H (70-105) mg/dL Alkaline Phosphatase (35-129) units/L Total Protein (6.3-8.2) g/dL Albumin (3.9-5) g/dL HEART Score - HEART Score Troponin: Troponin T < 0.010 ng/mL (0.00-0.029) 08/15/20 06:00
[2020-08-26] MEDS ORDERED: VANCOMYCIN PHARMACY TO DOSE IV SCH (15:00)
[2020-08-26] MEDS: cefTRIAXone/NS 2 GM/100 ML 2 GM/100 ML BAG IV SCH (15:02)
[2020-08-26] MEDS: VANCOMYCIN 1,750 MG in SODIUM CHLORIDE 0.9% 500 ML 500 ML IV SCH (17:33)
[2020-08-26] MEDS: ENOXAPARIN 40 MG/0.4 ML INJ SUB-Q SCH (22:35)
[2020-08-27] MEDS: fentaNYL DRIP Premix 2,000 MCG/100 ML BAG IV SCH ×2 (05:37→18:19)
[2020-08-27] MEDS: PHENobarbital 20 MG/5 ML ORAL LIQD FEEDTUBE SCH ×3 (05:38→22:16)
[2020-08-27] MEDS: VANCOMYCIN 1,750 MG in SODIUM CHLORIDE 0.9% 500 ML 500 ML IV SCH ×2 (05:38→17:12)
[2020-08-27] MEDS: INSULIN LISPRO 100 UNIT/ML VIAL 3 mL SUB-Q SCH ×4 (06:56→17:13)
[2020-08-27] MEDS: chlordiazePOXIDE 25 MG CAP PO SCH ×3 (08:59→22:15)
[2020-08-27] MEDS: FAMOTIDINE 20 MG TAB PO SCH ×2 (09:01→22:14)
[2020-08-27] MEDS: cefTRIAXone/NS 2 GM/100 ML 2 GM/100 ML BAG IV SCH (09:02)
[2020-08-27] MEDS: QUEtiapine 100 MG TAB PO SCH ×2 (09:02→22:15)
[2020-08-27] MEDS: INSULIN GLARGINE 100 UNITS/ML SUB-Q SCH ×2 (09:02→22:17)
--- NOTE | 2020-08-27 15:08 | Progress Note ---
Assessment and Plan (1) Acute hypoxemic respiratory failure Current Visit: Yes Status: Acute Plan to address problem: Patient currently intubated and ambulatory support, wean vent as tolerated, critical care team consulted, sedation holiday, spontaneous breathing trial daily, The high probability of a clinically significant, sudden or life threatening deterioration of the [cardiac, pulmonary, neuro] system(s) required my full and direct attention, intervention and personal management. The aggregate critical care time was [90] minutes. This time is in addition to time spent performing reported procedures but includes the following: [x] Data Review and interpretation [x] Patient assessment and monitoring of vital signs [x] Documentation [x] Medication orders and management (2) Acute metabolic encephalopathy Current Visit: Yes Status: Acute Plan to address problem: Supportive care, continue medical management. Overall prognosis poor now. Remains confused encephalopathic. (3) Cerebrovascular accident (CVA) with left hemiparesis Current Visit: Yes Status: Chronic Plan to address problem: Supportive care, continue medical management. May be new baseline patient is not really become more alert. (4) Type 2 diabetes mellitus Current Visit: Yes Status: Chronic Qualifiers: Diabetes mellitus intermediate insulin use: unspecified intermediate insulin use status Plan to address problem: Sliding-scale insulin therapy, Accu-Chek, hypoglycemia protocol. (5) DVT prophylaxis Current Visit: Yes Status: Acute Plan to address problem: SCD to bilateral lower extremities while in bed, prophylactic anticoagulation #6 septic shock vitals are stable at this time. Severe sepsis with septic shock: Off pressors, leukocytosis resolved, remains low-grade fever. Source unclear, possible right elbow infection, pneumonia, discitis?, pyelonephritis. Chest x-ray possible right lower lobe infiltrate. Urinalysis negative. SARS-CoV-2 PCR negative. Patient underwent lumbar puncture in the emergency room, ED provider kindly contacted me with results - WBCs 10, RBCs 381. This is not consistent with meningitis. Procalcitonin normal. #Possible pneumonia: Repeat CXR mild infiltrates. CT with LLL consolidation. Sputum culture grew MSSA ? colonizer vs real (no wbc in resp specimen) #?Pyelonephritis: CT with bilateral fat perinephric fat stranding and retroperitoneal LNs however UA negative. #Acute hypoxemic respiratory failure: Patient intubated #Right elbow ulcer abscess/ cellulitis: CT with no abscess or effusion or osteomyelitis #Acute encephalopathy: Likely secondary to sepsis versus metabolic. ?drugs. 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 CSF with no pleocytosis but high protein. #Peripheral vascular disease: Very cold feet bilaterally. Arterial Doppler without any evidence of PAD?. Previous arterial Doppler abnormal. #Multiple skin tears in left hand and left lower extremities: Likely secondary to peripheral vascular disease Subjective Date of service: 08/27/20 Principal diagnosis: Ac hypoxemic resp failure; Ac encephalopathy (toxic metabolic); Sev. Sepsis Interval history: 55 YO Male HD #11 with acute hypoxemic respiratory failure, acute metabolic encephalopathy, septic shock, diabetic foot infection CVA with left hemiparesis. Patient currently intubated and on vent support. No significant improvement overnight. No acute decompensation overnight. No reported nursing events. Patient currently off pressors. No clinical signs of pain. Patient remains altered will reach out hand to grab but does not make eye contact. No new changes over p.m. Objective - Constitutional Vitals: Vital Signs - 12hr 08/27/20 08/27/20 08/27/20 03:16 03:30 03:46 Temperature Pulse Rate 80 81 94 H Pulse Rate [ From Monitor] Respiratory 20 17 14 Rate Respiratory Rate [Chest] Blood Pressure 143/86 116/68 116/68 O2 Sat by Pulse 99 99 97 Oximetry 08/27/20 08/27/20 08/27/20 04:00 04:16 04:30 Temperature 98.6 F Pulse Rate 84 92 H 92 H Pulse Rate [ 97 H From Monitor] Respiratory 17 21 20 Rate Respiratory Rate [Chest] Blood Pressure 138/83 138/83 163/87 O2 Sat by Pulse 99 100 100 Oximetry 08/27/20 08/27/20 08/27/20 04:46 05:00 05:16 Temperature Pulse Rate 99 H 98 H 95 H Pulse Rate [ From Monitor] Respiratory 13 13 18 Rate Respiratory Rate [Chest] Blood Pressure 163/87 165/98 165/98 O2 Sat by Pulse 99 98 97 Oximetry 08/27/20 08/27/20 08/27/20 05:30 05:46 06:00 Temperature Pulse Rate 96 H 94 H 100 H Pulse Rate [ From Monitor] Respiratory 19 19 20 Rate Respiratory Rate [Chest] Blood Pressure 178/91 178/91 163/97 O2 Sat by Pulse 98 98 Oximetry 08/27/20 08/27/20 08/27/20 06:15 06:30 06:46 Temperature Pulse Rate 97 H 89 87 Pulse Rate [ From Monitor] Respiratory 20 20 20 Rate Respiratory Rate [Chest] Blood Pressure 176/83 163/97 135/63 O2 Sat by Pulse Oximetry 08/27/20 08/27/20 08/27/20 07:00 07:16 07:30 Temperature Pulse Rate 86 87 84 Pulse Rate [ From Monitor] Respiratory 19 19 19 Rate Respiratory Rate [Chest] Blood Pressure 128/65 128/65 130/67 O2 Sat by Pulse Oximetry 08/27/20 08/27/20 08/27/20 07:37 07:46 08:00 Temperature 98.4 F Pulse Rate 81 85 86 Pulse Rate [ 88 From Monitor] Respiratory 21 21 Rate Respiratory Rate [Chest] Blood Pressure 130/67 130/67 135/72 O2 Sat by Pulse 100 100 97 Oximetry 08/27/20 08/27/20 08/27/20 08:16 08:30 08:46 Temperature Pulse Rate 88 87 82 Pulse Rate [ From Monitor] Respiratory 21 19 20 Rate Respiratory Rate [Chest] Blood Pressure 135/72 121/76 130/67 O2 Sat by Pulse 99 100 99 Oximetry 08/27/20 08/27/20 08/27/20 09:00 09:16 09:30 Temperature Pulse Rate 84 81 84 Pulse Rate [ From Monitor] Respiratory 15 20 15 Rate Respiratory Rate [Chest] Blood Pressure 109/64 109/64 109/64 O2 Sat by Pulse 99 99 100 Oximetry 08/27/20 08/27/20 08/27/20 09:46 10:00 10:16 Temperature Pulse Rate 85 83 84 Pulse Rate [ From Monitor] Respiratory 21 19 20 Rate Respiratory 20 Rate [Chest] Blood Pressure 104/45 98/46 98/46 O2 Sat by Pulse 99 99 99 Oximetry 08/27/20 08/27/20 08/27/20 10:30 10:46 11:00 Temperature Pulse Rate 84 82 85 Pulse Rate [ From Monitor] Respiratory 20 21 15 Rate Respiratory Rate [Chest] Blood Pressure 102/52 104/45 97/54 O2 Sat by Pulse 99 100 100 Oximetry 08/27/20 08/27/20 08/27/20 11:05 11:16 11:30 Temperature Pulse Rate 79 88 85 Pulse Rate [ From Monitor] Respiratory 22 16 22 Rate Respiratory Rate [Chest] Blood Pressure 107/50 97/54 97/54 O2 Sat by Pulse 99 99 99 Oximetry 08/27/20 08/27/20 08/27/20 11:46 12:00 12:16 Temperature 98.8 F Pulse Rate 80 81 80 Pulse Rate [ 79 From Monitor] Respiratory 24 19 22 Rate Respiratory Rate [Chest] Blood Pressure 107/53 107/50 107/50 O2 Sat by Pulse 99 99 99 Oximetry 08/27/20 08/27/20 08/27/20 12:30 12:46 13:00 Temperature Pulse Rate 79 79 79 Pulse Rate [ From Monitor] Respiratory 18 24 21 Rate Respiratory Rate [Chest] Blood Pressure 113/51 107/50 121/56 O2 Sat by Pulse 100 100 100 Oximetry 08/27/20 08/27/20 08/27/20 13:16 13:30 13:46 Temperature Pulse Rate 86 84 84 Pulse Rate [ From Monitor] Respiratory 18 25 H 24 Rate Respiratory Rate [Chest] Blood Pressure 121/56 118/55 118/55 O2 Sat by Pulse 100 98 100 Oximetry 08/27/20 08/27/20 08/27/20 14:00 14:16 14:30 Temperature Pulse Rate 81 86 82 Pulse Rate [ From Monitor] Respiratory 22 25 H 21 Rate Respiratory Rate [Chest] Blood Pressure 127/56 127/56 103/55 O2 Sat by Pulse 99 99 99 Oximetry General appearance: Present: cachectic, disheveled - EENT Eyes: PERRL, no miosis, no mydriasis - Respiratory Respiratory: bilateral: diminished, rhonchi ([place]) - Cardiovascular Rhythm: regular Heart Sounds: Present: S1 & S2. Absent: gallop, rub - Gastrointestinal General gastrointestinal: Present: soft, non-tender, non-distended, normal bowel sounds - Musculoskeletal Musculoskeletal: generalized weakness - Psychiatric Psychiatric: other (Confused encephalopathic) - Labs CBC & Chem 7: 08/26/20 05:00 08/26/20 05:00 Labs: Abnormal lab results 08/26/20 08/26/20 08/27/20 Range/Units 18:16 22:50 00:28 POC Glucose 268 H 125 H 177 H (70-105) mg/dL 08/27/20 08/27/20 Range/Units 06:05 12:07 POC Glucose 271 H 278 H (70-105) mg/dL - Imaging and cardiology CT scan - abdomen: image reviewed CT scan - chest: image reviewed Other: other (CT upper and lower extremity.) HEART Score - HEART Score Troponin: Troponin T < 0.010 ng/mL (0.00-0.029) 08/15/20 06:00
--- NOTE | 2020-08-27 15:53 | Progress Note ---
Assessment and Plan Acute hypoxemic respiratory failure on MVS Acute encephalopathy, presumably toxic metabolic. Severe sepsis with shock. History of diabetes. History of a cerebrovascular accident with persistent left hemiparesis. History of alcohol abuse. Hypertension. Chronic pain syndrome. History of deep venous thrombosis. - ETT day number 13; he still is requiring significant sedation and still with intermittent agitation - hold all IV sedation today and use prn med's to control agitation through the day - will give a trial of extubation in am if able to manage without IV sedation - extend duration of Librium X 2 more days to spare IV sedation - prn Precedex post extubation - continue care as below otherwise; - continue Seroquel at 300 mg po bid re: agitation - continue daily SAT and SBT assessment as tolerated - continue to rest on AC qhs acutely - continue to wean supplemental oxygen for target O2 sat's > 92% acutely - VAP bundle addressed - continue lung protective strategies - continue bronchodilators with pulmonary hygiene per RT - wean per pulmonary driven protocols otherwise - accuchecks with glycemic control per SSI (While critically ill target blood glucose of 140-180 mg/dL; avoid hypoglycemia) - sedation prn for target RASS 0 to -1 - avoid nephrotoxins, renally dose all medications - complete AB's per ID rec's - prn analgesia per CPOT score - Maintenance of sleep-wake cycle, avoid delirium - continue enteral nutritional support at goal rate as tolerated - G.I. & VTE prophylaxis - PT/OT/ROM exercises - continue mobility protocols for pressure ulcer prophylaxis - Monitor hemodynamics closely - continue other care per attending / other consultants - discharge planning ongoing concurrently .... Re-evaluate in am & prn CONDITION: CRITICAL PROGNOSIS: GUARDED CODE STATUS: FULL CODE The high probability of a clinically significant, sudden or life-threatening deterioration of the [respiratory, cardiovascular & neurologic] system(s) required my full and direct attention, intervention and personal management. The aggregate critical care time was [32] minutes without overlap. Time includes spent on; [x] Data Review and interpretation [x] Patient assessment and monitoring of vital signs [x] Documentation [x] Medication orders and management Subjective Date of service: 08/27/20 Principal diagnosis: Ac hypoxemic resp failure; Ac encephalopathy (toxic metabolic); Sev. Sepsis Interval history: Patient is seen today for: Acute hypoxemic respiratory failure; Acute encephalopathy (toxic metabolic); Severe sepsis with shock; DM II; CVA; alcohol abuse; HTN; DVT Seen and examined at bedside; 24hour events reviewed; nursing and respiratory care staff consulted; no adverse overnight events reported to me; resting in bed ; on SBT and tolerating well so far today; he nods head no to pain; No N/V/F/C Objective Vital Signs - 12hr 08/27/20 08/27/20 08/27/20 04:00 04:16 04:30 Temperature 98.6 F Pulse Rate 84 92 H 92 H Pulse Rate [ 97 H From Monitor] Respiratory 17 21 20 Rate Respiratory Rate [Chest] Blood Pressure 138/83 138/83 163/87 O2 Sat by Pulse 99 100 100 Oximetry 08/27/20 08/27/20 08/27/20 04:46 05:00 05:16 Temperature Pulse Rate 99 H 98 H 95 H Pulse Rate [ From Monitor] Respiratory 13 13 18 Rate Respiratory Rate [Chest] Blood Pressure 163/87 165/98 165/98 O2 Sat by Pulse 99 98 97 Oximetry 08/27/20 08/27/20 08/27/20 05:30 05:46 06:00 Temperature Pulse Rate 96 H 94 H 100 H Pulse Rate [ From Monitor] Respiratory 19 19 20 Rate Respiratory Rate [Chest] Blood Pressure 178/91 178/91 163/97 O2 Sat by Pulse 98 98 Oximetry 08/27/20 08/27/20 08/27/20 06:15 06:30 06:46 Temperature Pulse Rate 97 H 89 87 Pulse Rate [ From Monitor] Respiratory 20 20 20 Rate Respiratory Rate [Chest] Blood Pressure 176/83 163/97 135/63 O2 Sat by Pulse Oximetry 08/27/20 08/27/20 08/27/20 07:00 07:16 07:30 Temperature Pulse Rate 86 87 84 Pulse Rate [ From Monitor] Respiratory 19 19 19 Rate Respiratory Rate [Chest] Blood Pressure 128/65 128/65 130/67 O2 Sat by Pulse Oximetry 08/27/20 08/27/20 08/27/20 07:37 07:46 08:00 Temperature 98.4 F Pulse Rate 81 85 86 Pulse Rate [ 88 From Monitor] Respiratory 21 21 Rate Respiratory Rate [Chest] Blood Pressure 130/67 130/67 135/72 O2 Sat by Pulse 100 100 97 Oximetry 08/27/20 08/27/20 08/27/20 08:16 08:30 08:46 Temperature Pulse Rate 88 87 82 Pulse Rate [ From Monitor] Respiratory 21 19 20 Rate Respiratory Rate [Chest] Blood Pressure 135/72 121/76 130/67 O2 Sat by Pulse 99 100 99 Oximetry 08/27/20 08/27/20 08/27/20 09:00 09:16 09:30 Temperature Pulse Rate 84 81 84 Pulse Rate [ From Monitor] Respiratory 15 20 15 Rate Respiratory Rate [Chest] Blood Pressure 109/64 109/64 109/64 O2 Sat by Pulse 99 99 100 Oximetry 08/27/20 08/27/20 08/27/20 09:46 10:00 10:16 Temperature Pulse Rate 85 83 84 Pulse Rate [ From Monitor] Respiratory 21 19 20 Rate Respiratory 20 Rate [Chest] Blood Pressure 104/45 98/46 98/46 O2 Sat by Pulse 99 99 99 Oximetry 08/27/20 08/27/20 08/27/20 10:30 10:46 11:00 Temperature Pulse Rate 84 82 85 Pulse Rate [ From Monitor] Respiratory 20 21 15 Rate Respiratory Rate [Chest] Blood Pressure 102/52 104/45 97/54 O2 Sat by Pulse 99 100 100 Oximetry 08/27/20 08/27/20 08/27/20 11:05 11:16 11:30 Temperature Pulse Rate 79 88 85 Pulse Rate [ From Monitor] Respiratory 22 16 22 Rate Respiratory Rate [Chest] Blood Pressure 107/50 97/54 97/54 O2 Sat by Pulse 99 99 99 Oximetry 08/27/20 08/27/20 08/27/20 11:46 12:00 12:16 Temperature 98.8 F Pulse Rate 80 81 80 Pulse Rate [ 79 From Monitor] Respiratory 24 19 22 Rate Respiratory Rate [Chest] Blood Pressure 107/53 107/50 107/50 O2 Sat by Pulse 99 99 99 Oximetry 08/27/20 08/27/20 08/27/20 12:30 12:46 13:00 Temperature Pulse Rate 79 79 79 Pulse Rate [ From Monitor] Respiratory 18 24 21 Rate Respiratory Rate [Chest] Blood Pressure 113/51 107/50 121/56 O2 Sat by Pulse 100 100 100 Oximetry 08/27/20 08/27/20 08/27/20 13:16 13:30 13:46 Temperature Pulse Rate 86 84 84 Pulse Rate [ From Monitor] Respiratory 18 25 H 24 Rate Respiratory Rate [Chest] Blood Pressure 121/56 118/55 118/55 O2 Sat by Pulse 100 98 100 Oximetry 08/27/20 08/27/20 08/27/20 14:00 14:16 14:30 Temperature Pulse Rate 81 86 82 Pulse Rate [ From Monitor] Respiratory 22 25 H 21 Rate Respiratory Rate [Chest] Blood Pressure 127/56 127/56 103/55 O2 Sat by Pulse 99 99 99 Oximetry 08/27/20 15:16 Temperature Pulse Rate 81 Pulse Rate [ From Monitor] Respiratory 21 Rate Respiratory Rate [Chest] Blood Pressure 106/55 O2 Sat by Pulse 99 Oximetry Constitutional: no acute distress, other (middle aged male with mildly increased respiratory effort at rest on MVS) Eyes: non-icteric ENT: oropharynx moist, other (ETT 23 cm [place]) Neck: supple, no lymphadenopathy, no JVD Effort: mildly labored Ascultation: Bilateral: diminished breath sounds, rhonchi (scant) Percussion: Bilateral: not dull Cardiovascular: regular rate and rhythm Gastrointestinal: normoactive bowel sounds, soft, non-tender, non-distended (protuberant) Integumentary: normal Extremities: no cyanosis, no edema, pink and warm, pulses normal, no ischemia or petechiae Neurologic: non-focal exam (grossly), pupils equal and round, motor strength normal and, other (sedated to RASS -1) Psychiatric: other (sedate) CBC and BMP: 08/26/20 05:00 08/28/20 Unknown ABG, PT/INR, D-dimer: ABG ABG pH 7.463 (7.320-7.450) H 08/25/20 11:53 POC ABG pCO2 37.9 mmHg (32.0-48.0) 08/25/20 11:53 ABG pCO2 35.2 mm Hg 08/21/20 04:22 POC ABG pO2 95.1 mmHg (83-108) 08/25/20 11:53 ABG pO2 89.9 mm Hg (80.0-90.0) 08/21/20 04:22 POC ABG HCO3 26.5 08/25/20 11:53 ABG O2 Saturation 97.3 % (95.0-99.0) 08/21/20 04:22 PT/INR, D-dimer PT 13.9 Sec. (12.2-14.9) 08/16/20 Unknown INR 1.06 (0.87-1.13) 08/16/20 Unknown D-Dimer 882.17 ng/mlDDU (0-234) H 08/16/20 14:45 D-Dimer 925.88 ng/mlDDU (0-234) H 08/16/20 14:45 Abnormal lab findings: Abnormal Labs 08/15/20 08/15/20 08/15/20 06:00 07:32 07:32 WBC RBC Hgb Hct MCHC RDW [place] % (Auto) [place] # (Auto) Seg Neutrophils % Seg Neutrophils # APTT D-Dimer ABG pH POC ABG pO2 ABG pO2 ABG HCO3 ABG Base Excess ABG Hemoglobin ABG Sodium ABG Potassium ABG Chloride ABG Glucose Oxyhemoglobin Carboxyhemoglobin Sodium 132 L Potassium Chloride 94.3 L Carbon Dioxide 19 L BUN 45 H Creatinine 1.6 H Glucose 285 H POC Glucose Calcium 10.4 H Phosphorus Magnesium Alkaline Phosphatase Total Creatine Kinase 446 H CK-MB (CK-2) 8.8 H C-Reactive Protein Total Protein Albumin 3.7 L Triglycerides Arterial Blood Glucose Arterial Blood Ionized Calcium Salicylates < 0.3 L Acetaminophen < 5.0 L 08/15/20 08/15/20 08/15/20 10:20 10:45 21:10 WBC RBC Hgb Hct MCHC RDW [place] % (Auto) [place] # (Auto) Seg Neutrophils % Seg Neutrophils # APTT D-Dimer ABG pH 7.338 L POC ABG pO2 110.3 H ABG pO2 105.9 H ABG HCO3 19.2 L ABG Base Excess -5.9 L ABG Hemoglobin 10.2 L 12.3 L ABG Sodium ABG Potassium ABG Chloride ABG Glucose Oxyhemoglobin Carboxyhemoglobin 1.7 H Sodium Potassium Chloride Carbon Dioxide BUN Creatinine Glucose 297 H POC Glucose Calcium Phosphorus Magnesium Alkaline Phosphatase Total Creatine Kinase CK-MB (CK-2) C-Reactive Protein Total Protein Albumin Triglycerides Arterial Blood Glucose Arterial Blood Ionized Calcium Salicylates Acetaminophen 08/16/20 08/16/20 08/16/20 04:30 08:59 14:45 WBC RBC Hgb Hct 35.3 L MCHC RDW 15.7 H [place] % (Auto) [place] # (Auto) Seg Neutrophils % Seg Neutrophils # APTT D-Dimer ABG pH 7.345 L POC ABG pO2 ABG pO2 134.5 H ABG HCO3 ABG Base Excess -5.2 L ABG Hemoglobin 12.1 L ABG Sodium ABG Potassium ABG Chloride ABG Glucose Oxyhemoglobin Carboxyhemoglobin Sodium Potassium 3.4 L Chloride 109.0 H Carbon Dioxide BUN 32 H Creatinine Glucose 186 H POC Glucose Calcium Phosphorus Magnesium Alkaline Phosphatase Total Creatine Kinase CK-MB (CK-2) C-Reactive Protein Total Protein 6.0 L Albumin 3.1 L Triglycerides Arterial Blood Glucose Arterial Blood Ionized Calcium Salicylates Acetaminophen 08/16/20 08/16/20 08/16/20 14:45 14:45 14:45 WBC RBC Hgb Hct MCHC RDW [place] % (Auto) [place] # (Auto) Seg Neutrophils % Seg Neutrophils # APTT D-Dimer 925.88 H 882.17 H ABG pH POC ABG pO2 ABG pO2 ABG HCO3 ABG Base Excess ABG Hemoglobin ABG Sodium ABG Potassium ABG Chloride ABG Glucose Oxyhemoglobin Carboxyhemoglobin Sodium Potassium Chloride Carbon Dioxide BUN Creatinine Glucose POC Glucose Calcium Phosphorus 1.50 L Magnesium 1.60 L Alkaline Phosphatase Total Creatine Kinase CK-MB (CK-2) C-Reactive Protein Total Protein Albumin Triglycerides Arterial Blood Glucose Arterial Blood Ionized Calcium Salicylates Acetaminophen 08/16/20 08/16/20 08/16/20 14:45 17:42 Unknown WBC 16.7 H RBC Hgb Hct MCHC RDW [place] % (Auto) [place] # (Auto) 1.0 H Seg Neutrophils % 79.9 H Seg Neutrophils # 13.4 H APTT D-Dimer ABG pH POC ABG pO2 ABG pO2 ABG HCO3 ABG Base Excess ABG Hemoglobin ABG Sodium ABG Potassium ABG Chloride ABG Glucose Oxyhemoglobin Carboxyhemoglobin Sodium Potassium Chloride Carbon Dioxide BUN Creatinine Glucose POC Glucose 169 H Calcium Phosphorus Magnesium Alkaline Phosphatase Total Creatine Kinase CK-MB (CK-2) C-Reactive Protein 2.70 H Total Protein Albumin Triglycerides Arterial Blood Glucose Arterial Blood Ionized Calcium Salicylates Acetaminophen 08/16/20 08/16/20 08/17/20 Unknown Unknown 00:06 WBC RBC Hgb Hct MCHC RDW [place] % (Auto) [place] # (Auto) Seg Neutrophils % Seg Neutrophils # APTT 23.9 L D-Dimer ABG pH POC ABG pO2 ABG pO2 ABG HCO3 ABG Base Excess ABG Hemoglobin ABG Sodium ABG Potassium ABG Chloride ABG Glucose Oxyhemoglobin Carboxyhemoglobin Sodium Potassium Chloride Carbon Dioxide 17 L BUN 33 H Creatinine Glucose 233 H POC Glucose 125 H Calcium Phosphorus Magnesium Alkaline Phosphatase Total Creatine Kinase CK-MB (CK-2) C-Reactive Protein Total Protein Albumin Triglycerides Arterial Blood Glucose Arterial Blood Ionized Calcium Salicylates Acetaminophen 08/17/20 08/17/20 08/17/20 03:40 05:52 12:30 WBC RBC Hgb Hct MCHC RDW [place] % (Auto) [place] # (Auto) Seg Neutrophils % Seg Neutrophils # APTT D-Dimer ABG pH POC ABG pO2 60.8 L ABG pO2 ABG HCO3 ABG Base Excess ABG Hemoglobin ABG Sodium ABG Potassium ABG Chloride 115.0 H ABG Glucose 139 H Oxyhemoglobin Carboxyhemoglobin Sodium Potassium Chloride Carbon Dioxide BUN Creatinine Glucose POC Glucose 139 H 133 H Calcium Phosphorus Magnesium Alkaline Phosphatase Total Creatine Kinase CK-MB (CK-2) C-Reactive Protein Total Protein Albumin Triglycerides Arterial Blood Glucose 139 H Arterial Blood Ionized Calcium 5.5 H Salicylates Acetaminophen 08/17/20 08/18/20 08/18/20 17:47 00:08 04:00 WBC RBC Hgb Hct MCHC RDW [place] % (Auto) [place] # (Auto) Seg Neutrophils % Seg Neutrophils # APTT D-Dimer ABG pH 7.315 L POC ABG pO2 ABG pO2 75.1 L ABG HCO3 ABG Base Excess -4.3 L ABG Hemoglobin 11.9 L ABG Sodium ABG Potassium ABG Chloride ABG Glucose Oxyhemoglobin 93.7 L Carboxyhemoglobin Sodium Potassium Chloride Carbon Dioxide BUN Creatinine Glucose POC Glucose 157 H 129 H Calcium Phosphorus Magnesium Alkaline Phosphatase Total Creatine Kinase CK-MB (CK-2) C-Reactive Protein Total Protein Albumin Triglycerides Arterial Blood Glucose Arterial Blood Ionized Calcium Salicylates Acetaminophen 08/18/20 08/18/20 08/19/20 05:31 12:26 00:02 WBC RBC Hgb Hct MCHC RDW [place] % (Auto) [place] # (Auto) Seg Neutrophils % Seg Neutrophils # APTT D-Dimer ABG pH POC ABG pO2 ABG pO2 ABG HCO3 ABG Base Excess ABG Hemoglobin ABG Sodium ABG Potassium ABG Chloride ABG Glucose Oxyhemoglobin Carboxyhemoglobin Sodium Potassium Chloride Carbon Dioxide BUN Creatinine Glucose POC Glucose 114 H 112 H 107 H Calcium Phosphorus Magnesium Alkaline Phosphatase Total Creatine Kinase CK-MB (CK-2) C-Reactive Protein Total Protein Albumin Triglycerides Arterial Blood Glucose Arterial Blood Ionized Calcium Salicylates Acetaminophen 08/19/20 08/19/20 08/19/20 04:19 05:34 12:48 WBC RBC Hgb Hct MCHC RDW [place] % (Auto) [place] # (Auto) Seg Neutrophils % Seg Neutrophils # APTT D-Dimer ABG pH 7.451 H POC ABG pO2 172.9 H ABG pO2 ABG HCO3 ABG Base Excess ABG Hemoglobin ABG Sodium ABG Potassium ABG Chloride ABG Glucose Oxyhemoglobin Carboxyhemoglobin Sodium Potassium Chloride Carbon Dioxide BUN Creatinine Glucose POC Glucose 114 H 198 H Calcium Phosphorus Magnesium Alkaline Phosphatase Total Creatine Kinase CK-MB (CK-2) C-Reactive Protein Total Protein Albumin Triglycerides Arterial Blood Glucose Arterial Blood Ionized Calcium Salicylates Acetaminophen 08/19/20 08/19/20 08/20/20 18:01 21:40 05:00 WBC RBC Hgb Hct MCHC RDW [place] % (Auto) [place] # (Auto) Seg Neutrophils % Seg Neutrophils # APTT D-Dimer ABG pH POC ABG pO2 72.1 L ABG pO2 ABG HCO3 ABG Base Excess ABG Hemoglobin ABG Sodium 132.4 L ABG Potassium 2.7 L ABG Chloride ABG Glucose 293 H Oxyhemoglobin Carboxyhemoglobin Sodium Potassium Chloride Carbon Dioxide BUN Creatinine Glucose POC Glucose 211 H 252 H Calcium Phosphorus Magnesium Alkaline Phosphatase Total Creatine Kinase CK-MB (CK-2) C-Reactive Protein Total Protein Albumin Triglycerides Arterial Blood Glucose 293 H Arterial Blood Ionized Calcium Salicylates Acetaminophen 08/20/20 08/20/20 08/20/20 05:15 07:06 07:45 WBC RBC Hgb Hct MCHC RDW [place] % (Auto) [place] # (Auto) Seg Neutrophils % Seg Neutrophils # APTT D-Dimer ABG pH POC ABG pO2 ABG pO2 ABG HCO3 ABG Base Excess ABG Hemoglobin ABG Sodium ABG Potassium ABG Chloride ABG Glucose Oxyhemoglobin Carboxyhemoglobin Sodium Potassium 2.9 L* Chloride Carbon Dioxide BUN Creatinine 0.6 L Glucose 304 H POC Glucose 238 H Calcium Phosphorus Magnesium Alkaline Phosphatase Total Creatine Kinase CK-MB (CK-2) C-Reactive Protein Total Protein Albumin Triglycerides 260 H Arterial Blood Glucose Arterial Blood Ionized Calcium Salicylates Acetaminophen 08/20/20 08/20/20 08/21/20 12:20 17:49 00:18 WBC RBC Hgb Hct MCHC RDW [place] % (Auto) [place] # (Auto) Seg Neutrophils % Seg Neutrophils # APTT D-Dimer ABG pH POC ABG pO2 ABG pO2 ABG HCO3 ABG Base Excess ABG Hemoglobin ABG Sodium ABG Potassium ABG Chloride ABG Glucose Oxyhemoglobin Carboxyhemoglobin Sodium Potassium Chloride Carbon Dioxide BUN Creatinine Glucose POC Glucose 303 H 302 H 254 H Calcium Phosphorus Magnesium Alkaline Phosphatase Total Creatine Kinase CK-MB (CK-2) C-Reactive Protein Total Protein Albumin Triglycerides Arterial Blood Glucose Arterial Blood Ionized Calcium Salicylates Acetaminophen 08/21/20 08/21/20 08/21/20 04:05 04:05 04:22 WBC RBC 3.50 L Hgb 10.9 L Hct 31.3 L MCHC 35 H RDW [place] % (Auto) [place] # (Auto) Seg Neutrophils % Seg Neutrophils # APTT D-Dimer ABG pH POC ABG pO2 ABG pO2 ABG HCO3 ABG Base Excess ABG Hemoglobin 10.9 L ABG Sodium ABG Potassium ABG Chloride ABG Glucose Oxyhemoglobin Carboxyhemoglobin Sodium Potassium 3.5 L D Chloride Carbon Dioxide BUN 24 H Creatinine 0.5 L Glucose 274 H POC Glucose Calcium Phosphorus Magnesium Alkaline Phosphatase Total Creatine Kinase CK-MB (CK-2) C-Reactive Protein Total Protein Albumin Triglycerides Arterial Blood Glucose Arterial Blood Ionized Calcium Salicylates Acetaminophen 08/21/20 08/21/20 08/21/20 05:13 11:30 17:37 WBC RBC Hgb Hct MCHC RDW [place] % (Auto) [place] # (Auto) Seg Neutrophils % Seg Neutrophils # APTT D-Dimer ABG pH POC ABG pO2 ABG pO2 ABG HCO3 ABG Base Excess ABG Hemoglobin ABG Sodium ABG Potassium ABG Chloride ABG Glucose Oxyhemoglobin Carboxyhemoglobin Sodium Potassium Chloride Carbon Dioxide BUN Creatinine Glucose POC Glucose 240 H 296 H 272 H Calcium Phosphorus Magnesium Alkaline Phosphatase Total Creatine Kinase CK-MB (CK-2) C-Reactive Protein Total Protein Albumin Triglycerides Arterial Blood Glucose Arterial Blood Ionized Calcium Salicylates Acetaminophen 08/21/20 08/22/20 08/22/20 Unknown 00:42 04:00 WBC RBC Hgb 11.2 L Hct 33.1 L MCHC RDW [place] % (Auto) [place] # (Auto) Seg Neutrophils % Seg Neutrophils # APTT D-Dimer ABG pH POC ABG pO2 ABG pO2 ABG HCO3 ABG Base Excess ABG Hemoglobin ABG Sodium ABG Potassium ABG Chloride ABG Glucose Oxyhemoglobin Carboxyhemoglobin Sodium Potassium Chloride Carbon Dioxide BUN Creatinine Glucose POC Glucose 278 H Calcium Phosphorus Magnesium 1.30 L Alkaline Phosphatase Total Creatine Kinase CK-MB (CK-2) C-Reactive Protein Total Protein Albumin Triglycerides Arterial Blood Glucose Arterial Blood Ionized Calcium Salicylates Acetaminophen 08/22/20 08/22/20 08/22/20 04:00 05:31 05:52 WBC RBC Hgb Hct MCHC RDW [place] % (Auto) [place] # (Auto) Seg Neutrophils % Seg Neutrophils # APTT D-Dimer ABG pH POC ABG pO2 64.0 L ABG pO2 ABG HCO3 ABG Base Excess ABG Hemoglobin 11.9 L ABG Sodium ABG Potassium ABG Chloride ABG Glucose 238 H Oxyhemoglobin Carboxyhemoglobin Sodium Potassium 3.4 L Chloride Carbon Dioxide BUN 23 H Creatinine 0.5 L Glucose 266 H POC Glucose 236 H Calcium Phosphorus Magnesium Alkaline Phosphatase Total Creatine Kinase CK-MB (CK-2) C-Reactive Protein Total Protein Albumin Triglycerides Arterial Blood Glucose 238 H Arterial Blood Ionized Calcium Salicylates Acetaminophen 08/22/20 08/22/20 08/22/20 12:51 13:37 17:14 WBC RBC Hgb Hct MCHC RDW [place] % (Auto) [place] # (Auto) Seg Neutrophils % Seg Neutrophils # APTT D-Dimer ABG pH POC ABG pO2 ABG pO2 ABG HCO3 ABG Base Excess ABG Hemoglobin ABG Sodium ABG Potassium ABG Chloride ABG Glucose Oxyhemoglobin Carboxyhemoglobin Sodium Potassium Chloride Carbon Dioxide BUN Creatinine Glucose POC Glucose 279 H 287 H Calcium Phosphorus Magnesium 1.60 L Alkaline Phosphatase Total Creatine Kinase CK-MB (CK-2) C-Reactive Protein Total Protein Albumin Triglycerides Arterial Blood Glucose Arterial Blood Ionized Calcium Salicylates Acetaminophen 08/23/20 08/23/20 08/23/20 00:03 04:29 04:29 WBC RBC 3.43 L Hgb 10.7 L Hct 30.9 L MCHC 35 H RDW [place] % (Auto) [place] # (Auto) Seg Neutrophils % Seg Neutrophils # APTT D-Dimer ABG pH POC ABG pO2 ABG pO2 ABG HCO3 ABG Base Excess ABG Hemoglobin ABG Sodium ABG Potassium ABG Chloride ABG Glucose Oxyhemoglobin Carboxyhemoglobin Sodium Potassium Chloride Carbon Dioxide BUN 26 H Creatinine 0.5 L Glucose 257 H POC Glucose 312 H Calcium Phosphorus Magnesium Alkaline Phosphatase Total Creatine Kinase CK-MB (CK-2) C-Reactive Protein Total Protein Albumin Triglycerides Arterial Blood Glucose Arterial Blood Ionized Calcium Salicylates Acetaminophen 08/23/20 08/23/20 08/23/20 05:27 12:36 13:35 WBC RBC Hgb Hct MCHC RDW [place] % (Auto) [place] # (Auto) Seg Neutrophils % Seg Neutrophils # APTT D-Dimer ABG pH POC ABG pO2 ABG pO2 ABG HCO3 ABG Base Excess ABG Hemoglobin ABG Sodium ABG Potassium ABG Chloride ABG Glucose 301 H Oxyhemoglobin Carboxyhemoglobin Sodium Potassium Chloride Carbon Dioxide BUN Creatinine Glucose POC Glucose 235 H 282 H Calcium Phosphorus Magnesium Alkaline Phosphatase Total Creatine Kinase CK-MB (CK-2) C-Reactive Protein Total Protein Albumin Triglycerides Arterial Blood Glucose 301 H Arterial Blood Ionized Calcium Salicylates Acetaminophen 08/23/20 08/23/20 08/23/20 17:58 22:34 23:48 WBC RBC Hgb Hct MCHC RDW [place] % (Auto) [place] # (Auto) Seg Neutrophils % Seg Neutrophils # APTT D-Dimer ABG pH POC ABG pO2 ABG pO2 ABG HCO3 ABG Base Excess ABG Hemoglobin ABG Sodium ABG Potassium ABG Chloride ABG Glucose Oxyhemoglobin Carboxyhemoglobin Sodium Potassium Chloride Carbon Dioxide BUN Creatinine Glucose POC Glucose 313 H 271 H 298 H Calcium Phosphorus Magnesium Alkaline Phosphatase Total Creatine Kinase CK-MB (CK-2) C-Reactive Protein Total Protein Albumin Triglycerides Arterial Blood Glucose Arterial Blood Ionized Calcium Salicylates Acetaminophen 08/24/20 08/24/20 08/24/20 04:19 04:19 06:19 WBC RBC 3.40 L Hgb 10.4 L Hct 30.9 L MCHC RDW [place] % (Auto) 9.1 H [place] # (Auto) Seg Neutrophils % 73.8 H Seg Neutrophils # APTT D-Dimer ABG pH POC ABG pO2 ABG pO2 ABG HCO3 ABG Base Excess ABG Hemoglobin ABG Sodium ABG Potassium ABG Chloride ABG Glucose Oxyhemoglobin Carboxyhemoglobin Sodium Potassium Chloride Carbon Dioxide BUN 22 H Creatinine 0.5 L Glucose 296 H POC Glucose 328 H Calcium Phosphorus Magnesium Alkaline Phosphatase 147 H Total Creatine Kinase CK-MB (CK-2) C-Reactive Protein Total Protein 5.9 L Albumin 2.6 L Triglycerides Arterial Blood Glucose Arterial Blood Ionized Calcium Salicylates Acetaminophen 08/24/20 08/24/20 08/24/20 12:15 17:20 21:59 WBC RBC Hgb Hct MCHC RDW [place] % (Auto) [place] # (Auto) Seg Neutrophils % Seg Neutrophils # APTT D-Dimer ABG pH POC ABG pO2 ABG pO2 ABG HCO3 ABG Base Excess ABG Hemoglobin ABG Sodium ABG Potassium ABG Chloride ABG Glucose Oxyhemoglobin Carboxyhemoglobin Sodium Potassium Chloride Carbon Dioxide BUN Creatinine Glucose POC Glucose 251 H 345 H 249 H Calcium Phosphorus Magnesium Alkaline Phosphatase Total Creatine Kinase CK-MB (CK-2) C-Reactive Protein Total Protein Albumin Triglycerides Arterial Blood Glucose Arterial Blood Ionized Calcium Salicylates Acetaminophen 08/25/20 08/25/20 08/25/20 00:23 04:33 04:33 WBC 14.9 H RBC 3.22 L Hgb 9.9 L Hct 28.5 L MCHC 35 H RDW [place] % (Auto) [place] # (Auto) 1.0 H Seg Neutrophils % 71.9 H Seg Neutrophils # 10.6 H APTT D-Dimer ABG pH POC ABG pO2 ABG pO2 ABG HCO3 ABG Base Excess ABG Hemoglobin ABG Sodium ABG Potassium ABG Chloride ABG Glucose Oxyhemoglobin Carboxyhemoglobin Sodium 136 L Potassium Chloride Carbon Dioxide BUN 21 H Creatinine 0.5 L Glucose 225 H POC Glucose 269 H Calcium Phosphorus Magnesium Alkaline Phosphatase 166 H Total Creatine Kinase CK-MB (CK-2) C-Reactive Protein Total Protein 6.0 L Albumin 2.3 L Triglycerides Arterial Blood Glucose Arterial Blood Ionized Calcium Salicylates Acetaminophen 08/25/20 08/25/20 08/25/20 05:34 11:53 12:39 WBC RBC Hgb Hct MCHC RDW [place] % (Auto) [place] # (Auto) Seg Neutrophils % Seg Neutrophils # APTT D-Dimer ABG pH 7.463 H POC ABG pO2 ABG pO2 ABG HCO3 ABG Base Excess ABG Hemoglobin 10.3 L ABG Sodium 135.3 L ABG Potassium ABG Chloride ABG Glucose 254 H Oxyhemoglobin Carboxyhemoglobin Sodium Potassium Chloride Carbon Dioxide BUN Creatinine Glucose POC Glucose 215 H 291 H Calcium Phosphorus Magnesium Alkaline Phosphatase Total Creatine Kinase CK-MB (CK-2) C-Reactive Protein Total Protein Albumin Triglycerides Arterial Blood Glucose 254 H Arterial Blood Ionized Calcium Salicylates Acetaminophen 08/25/20 08/25/20 08/25/20 18:04 21:41 23:45 WBC RBC Hgb Hct MCHC RDW [place] % (Auto) [place] # (Auto) Seg Neutrophils % Seg Neutrophils # APTT D-Dimer ABG pH POC ABG pO2 ABG pO2 ABG HCO3 ABG Base Excess ABG Hemoglobin ABG Sodium ABG Potassium ABG Chloride ABG Glucose Oxyhemoglobin Carboxyhemoglobin Sodium Potassium Chloride Carbon Dioxide BUN Creatinine Glucose POC Glucose 200 H 136 H 191 H Calcium Phosphorus Magnesium Alkaline Phosphatase Total Creatine Kinase CK-MB (CK-2) C-Reactive Protein Total Protein Albumin Triglycerides Arterial Blood Glucose Arterial Blood Ionized Calcium Salicylates Acetaminophen 08/26/20 08/26/20 08/26/20 04:49 05:00 05:00 WBC RBC 3.05 L Hgb 9.3 L Hct 27.3 L MCHC RDW [place] % (Auto) 9.0 H [place] # (Auto) Seg Neutrophils % Seg Neutrophils # APTT D-Dimer ABG pH POC ABG pO2 ABG pO2 ABG HCO3 ABG Base Excess ABG Hemoglobin ABG Sodium ABG Potassium ABG Chloride ABG Glucose Oxyhemoglobin Carboxyhemoglobin Sodium Potassium Chloride Carbon Dioxide BUN 23 H Creatinine 0.5 L Glucose 220 H POC Glucose 251 H Calcium Phosphorus Magnesium Alkaline Phosphatase 197 H Total Creatine Kinase CK-MB (CK-2) C-Reactive Protein Total Protein 5.9 L Albumin 2.6 L Triglycerides Arterial Blood Glucose Arterial Blood Ionized Calcium Salicylates Acetaminophen 08/26/20 08/26/20 08/26/20 12:09 18:16 22:50 WBC RBC Hgb Hct MCHC RDW [place] % (Auto) [place] # (Auto) Seg Neutrophils % Seg Neutrophils # APTT D-Dimer ABG pH POC ABG pO2 ABG pO2 ABG HCO3 ABG Base Excess ABG Hemoglobin ABG Sodium ABG Potassium ABG Chloride ABG Glucose Oxyhemoglobin Carboxyhemoglobin Sodium Potassium Chloride Carbon Dioxide BUN Creatinine Glucose POC Glucose 263 H 268 H 125 H Calcium Phosphorus Magnesium Alkaline Phosphatase Total Creatine Kinase CK-MB (CK-2) C-Reactive Protein Total Protein Albumin Triglycerides Arterial Blood Glucose Arterial Blood Ionized Calcium Salicylates Acetaminophen 11/08/20 11/08/20 11/08/20 00:28 06:05 12:07 WBC RBC Hgb Hct MCHC RDW [place] % (Auto) [place] # (Auto) Seg Neutrophils % Seg Neutrophils # APTT D-Dimer ABG pH POC ABG pO2 ABG pO2 ABG HCO3 ABG Base Excess ABG Hemoglobin ABG Sodium ABG Potassium ABG Chloride ABG Glucose Oxyhemoglobin Carboxyhemoglobin Sodium Potassium Chloride Carbon Dioxide BUN Creatinine Glucose POC Glucose 177 H 271 H 278 H Calcium Phosphorus Magnesium Alkaline Phosphatase Total Creatine Kinase CK-MB (CK-2) C-Reactive Protein Total Protein Albumin Triglycerides Arterial Blood Glucose Arterial Blood Ionized Calcium Salicylates Acetaminophen Chest x-ray: other (none today) Allied health notes reviewed: nursing
[2020-08-27] MEDS: LORazepam 2 MG/ML VIAL IV PRN (20:18)
[2020-08-27] MEDS: ENOXAPARIN 40 MG/0.4 ML INJ SUB-Q SCH (22:16)
[2020-08-28] MEDS: INSULIN LISPRO 100 UNIT/ML VIAL 3 mL SUB-Q SCH ×4 (00:26→18:54)
[2020-08-28] MEDS: fentaNYL DRIP Premix 2,000 MCG/100 ML BAG IV SCH ×2 (04:18→15:00)
[2020-08-28] MEDS: LORazepam 2 MG/ML VIAL IV PRN ×2 (04:25→09:24)
[2020-08-28 06:03] LABS: Basophils # (Auto) 0.1 K/mm3 (0.0-0.1); Basophils % (Auto) 0.8 % (0.0-1.8); Eosinophils # (Auto) 0.3 K/mm3 (0.0-0.4); Eosinophils % (Auto) 4.3 % (0.0-4.3); Hematocrit 25.7 % (35.5-45.6); Hemoglobin 8.7 gm/dl (11.8-15.2); Lymphocytes # (Auto) 1.4 K/mm3 (1.2-5.4); Lymphocytes % (Auto) 20.2 % (13.4-35.0); Mean Corpuscular HGB Conc 34 % (32-34); Mean Corpuscular Volume 89 fl (84-94); Monocytes # (Auto) 0.6 K/mm3 (0.0-0.8); Monocytes % (Auto) 8.5 % (0.0-7.3); Platelet Count 216 K/mm3 (140-440); Red Blood Count 2.89 M/mm3 (3.65-5.03); Red Cell Distribution Width 14.8 % (13.2-15.2)
[2020-08-28] MEDS: PHENobarbital 20 MG/5 ML ORAL LIQD FEEDTUBE SCH ×3 (06:14→21:02)
[2020-08-28] MEDS: VANCOMYCIN 1,750 MG in SODIUM CHLORIDE 0.9% 500 ML 500 ML IV SCH ×2 (06:15→20:00)
[2020-08-28 06:34] LABS: Blood Urea Nitrogen 23 mg/dL (9-20); Hemolysis Index 0
[2020-08-28 06:44] LABS: BUN/Creatinine Ratio 38
[2020-08-28] MEDS: chlordiazePOXIDE 25 MG CAP PO SCH ×3 (08:19→20:50)
[2020-08-28] MEDS: QUEtiapine 100 MG TAB PO SCH ×2 (09:18→21:02)
[2020-08-28] MEDS: FAMOTIDINE 20 MG TAB PO SCH ×2 (09:19→21:03)
[2020-08-28] MEDS: INSULIN GLARGINE 100 UNITS/ML SUB-Q SCH (09:19)
[2020-08-28] MEDS: cefTRIAXone/NS 2 GM/100 ML 2 GM/100 ML BAG IV SCH (10:16)
--- NOTE | 2020-08-28 14:10 | Progress Note ---
Assessment and Plan Cultures: 08/15/2020 blood cultures no growth today 08/15/2020 CSF culture no growth today 11/15/2019 urine culture no growth Assessment: 55 years old male with history of diabetes mellitus, hypertension, peripheral vascular disease, alcohol abuse, tobacco abuse, left foot diabetic ulceration with an abscess secondary to MRSA in February 2020, admitted on 08/16/2020 due to altered mental status lethargy unresponsive: #Severe sepsis with septic shock: Off pressors, leukocytosis resolved, remains low-grade fever. Source unclear, possible right elbow infection, pneumonia, discitis?, pyelonephritis. Chest x-ray possible right lower lobe infiltrate. Urinalysis negative. SARS-CoV-2 PCR negative. Patient underwent lumbar puncture in the emergency room, ED provider kindly contacted me with results - WBCs 10, RBCs 381. This is not consistent with meningitis. Procalcitonin normal. #Possible pneumonia: Repeat CXR mild infiltrates. CT with LLL consolidation. Sputum culture grew MSSA ? colonizer vs real (no wbc in resp specimen) #?Pyelonephritis: CT with bilateral fat perinephric fat stranding and retroperitoneal LNs however UA negative. #Acute hypoxemic respiratory failure: Patient intubated #Right elbow ulcer abscess/ cellulitis: CT with no abscess or effusion or osteomyelitis #Acute encephalopathy: Likely secondary to sepsis versus metabolic. ?drugs. 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 CSF with no pleocytosis but high protein. #Peripheral vascular disease: Very cold feet bilaterally. Arterial Doppler without any evidence of PAD?. Previous arterial Doppler abnormal. #Multiple skin tears in left hand and left lower extremities: Likely secondary to peripheral vascular disease #Possible L5-S1 discitis seen on CT: ? Recommendations: -MRI of the lumbar spine canceled given that no family available for MRI questionnaire -Continue vancomycin 1 g IV every 12 and ceftriaxone 2 g IV daily total 6 weeks to cover lumbar discitis given significant destruction of endplate of L5-S1 until 09/27/2020. Keep vancomycin throughout 10 to 20 mcg/dL -Orders sent to case therapist -Wound care consultation Will follow. Pastora Gongora MD Infectious Diseases [facility] ([facility] M [phone] O [phone] Subjective Date of service: 08/28/20 Principal diagnosis: Ac hypoxemic resp failure; Ac encephalopathy (toxic metabolic); Sev. Sepsis Interval history: Patient remains afebrile, sedated on fentanyl, intubated Objective - Exam Narrative Exam: General appearance: Sedated in no acute distress intubated Eyes: anicteric sclerae, moist conjunctivae; no lid-lag; PERRLA HENT: Atraumatic; oropharynx clear limited endotracheal tube in place Lungs: Clear to auscultation bilaterally CV: RRR no murmur Abdomen: Soft, nontender Extremities: Left foot partial amputation healed. Right elbow with an open wound, deep cord with the residents Skin: Multiple lower extremity skin tear. Psych: Sedated Neuro: Sedated - - Constitutional Vitals: Vital Signs Temp Pulse Resp BP Pulse Ox 98.9 F 76 18 118/71 99 08/28/20 08:00 08/28/20 12:00 08/28/20 12:00 08/28/20 12:00 08/28/20 12:00 Temperature -Last 24 Hours Temperature 98.9 F Temperature 98.2 F Temperature 99.8 F Temperature 100.3 F Temperature 97.6 F - Labs CBC & Chem 7: 08/26/20 05:00 08/28/20 Unknown Labs: Abnormal lab results 08/27/20 08/28/20 08/28/20 Range/Units 16:40 00:49 05:20 RBC 2.89 L (3.65-5.03) M/mm3 Hgb 8.7 L (11.8-15.2) gm/dl Hct 25.7 L (35.5-45.6) % [place] % (Auto) 8.5 H (0.0-7.3) % Carbon Dioxide (22-30) mmol/L BUN (9-20) mg/dL Creatinine (0.8-1.3) mg/dL Glucose (75-100) mg/dL POC Glucose 242 H 193 H (70-105) mg/dL 08/28/20 08/28/20 08/28/20 Range/Units 05:59 12:17 Unknown RBC (3.65-5.03) M/mm3 Hgb (11.8-15.2) gm/dl Hct (35.5-45.6) % [place] % (Auto) (0.0-7.3) % Carbon Dioxide 31 H (22-30) mmol/L BUN 23 H (9-20) mg/dL Creatinine 0.6 L (0.8-1.3) mg/dL Glucose 197 H (75-100) mg/dL POC Glucose 217 H 179 H (70-105) mg/dL
--- NOTE | 2020-08-28 19:16 | Progress Note ---
Assessment and Plan (1) Acute hypoxemic respiratory failure Current Visit: Yes Status: Acute Plan to address problem: Patient currently intubated and ambulatory support, wean vent as tolerated, critical care team consulted, sedation holiday, spontaneous breathing trial daily, The high probability of a clinically significant, sudden or life threatening deterioration of the [cardiac, pulmonary, neuro] system(s) required my full and direct attention, intervention and personal management. The aggregate critical care time was [90] minutes. This time is in addition to time spent performing reported procedures but includes the following: [x] Data Review and interpretation [x] Patient assessment and monitoring of vital signs [x] Documentation [x] Medication orders and management (2) Acute metabolic encephalopathy Current Visit: Yes Status: Acute Plan to address problem: Supportive care, continue medical management. Continues to be encephalopathic. Unsure at this particular time whether this may be chronic. Patient has been accepted to LTAC which she should benefit (3) Cerebrovascular accident (CVA) with left hemiparesis Current Visit: Yes Status: Chronic Plan to address problem: Supportive care, continue medical management. Currently not on any blood thinners. (4) Type 2 diabetes mellitus Current Visit: Yes Status: Chronic Qualifiers: Diabetes mellitus intermediate designer insulin use: unspecified detention insulin use status Plan to address problem: Sliding-scale insulin therapy, Accu-Chek, hypoglycemia protocol. Patient has fair control of blood sugars. Some in the 200s. Currently on Lantus 20 units a.m. 40 units in p.m. May increase a.m. Lantus to 30 units. (5) DVT prophylaxis Current Visit: Yes Status: Acute Plan to address problem: SCD to bilateral lower extremities while in bed, prophylactic anticoagulation #6 diabetic foot wound. Patient currently receiving vancomycin. Also receiving Rocephin IM. ID following. #7 sepsis unclear etiology. Unlikely osteomyelitis. Patient currently receiving vancomycin Rocephin. Currently afebrile. Subjective Date of service: 08/28/20 Principal diagnosis: Ac hypoxemic resp failure; Ac encephalopathy (toxic metabolic); Sev. Sepsis Interval history: 55 YO Male HD #11 with acute hypoxemic respiratory failure, acute metabolic encephalopathy, septic shock, diabetic foot infection CVA with left hemiparesis. Patient currently intubated and on vent support. No significant improvement overnight. No acute decompensation overnight. No reported nursing events. Patient currently off pressors. No clinical signs of pain. Patient remains encephalopathic.. Patient has been accepted to LTAC for further management. Objective - Constitutional Vitals: Vital Signs - 12hr 08/28/20 08/28/20 08/28/20 07:15 07:30 07:45 Temperature Pulse Rate 81 100 H 84 Pulse Rate [ From Monitor] Respiratory 20 22 20 Rate Respiratory Rate [Chest] Blood Pressure 128/106 147/91 147/91 O2 Sat by Pulse 98 100 100 Oximetry 08/28/20 08/28/20 08/28/20 08:00 08:01 08:15 Temperature 98.9 F Pulse Rate 105 H 104 H 95 H Pulse Rate [ 107 H From Monitor] Respiratory 18 16 26 H Rate Respiratory Rate [Chest] Blood Pressure 165/84 165/84 165/84 O2 Sat by Pulse 99 99 96 Oximetry 08/28/20 08/28/20 08/28/20 08:30 08:45 09:00 Temperature Pulse Rate 86 93 H 111 H Pulse Rate [ From Monitor] Respiratory 19 20 21 Rate Respiratory Rate [Chest] Blood Pressure 121/60 121/60 166/87 O2 Sat by Pulse 93 96 96 Oximetry 08/28/20 08/28/20 08/28/20 09:10 09:15 09:30 Temperature Pulse Rate 115 H 116 H 111 H Pulse Rate [ From Monitor] Respiratory 27 H 26 H 25 H Rate Respiratory Rate [Chest] Blood Pressure 170/89 166/87 158/92 O2 Sat by Pulse 97 97 97 Oximetry 08/28/20 08/28/20 08/28/20 09:45 10:00 10:15 Temperature Pulse Rate 100 H 97 H 93 H Pulse Rate [ From Monitor] Respiratory 21 22 22 Rate Respiratory 21 Rate [Chest] Blood Pressure 158/92 117/68 117/68 O2 Sat by Pulse 96 97 96 Oximetry 08/28/20 08/28/20 08/28/20 10:30 10:45 11:00 Temperature Pulse Rate 93 H 93 H 88 Pulse Rate [ From Monitor] Respiratory 22 18 19 Rate Respiratory Rate [Chest] Blood Pressure 118/67 118/67 101/55 O2 Sat by Pulse 97 98 97 Oximetry 08/28/20 08/28/20 08/28/20 11:15 11:30 11:45 Temperature Pulse Rate 78 90 82 Pulse Rate [ From Monitor] Respiratory 20 20 21 Rate Respiratory Rate [Chest] Blood Pressure 104/58 114/60 114/60 O2 Sat by Pulse 98 98 97 Oximetry 08/28/20 08/28/20 08/28/20 12:00 12:15 12:30 Temperature 99 F Pulse Rate 84 76 77 Pulse Rate [ 76 From Monitor] Respiratory 20 26 H 22 Rate Respiratory Rate [Chest] Blood Pressure 118/71 118/71 104/59 O2 Sat by Pulse 98 97 97 Oximetry 08/28/20 08/28/20 08/28/20 12:45 13:00 13:15 Temperature Pulse Rate 78 77 80 Pulse Rate [ From Monitor] Respiratory 21 18 22 Rate Respiratory Rate [Chest] Blood Pressure 104/59 102/58 102/58 O2 Sat by Pulse 97 97 98 Oximetry 08/28/20 08/28/20 08/28/20 13:30 13:45 14:00 Temperature Pulse Rate 78 86 77 Pulse Rate [ From Monitor] Respiratory 21 17 20 Rate Respiratory Rate [Chest] Blood Pressure 106/62 106/62 104/58 O2 Sat by Pulse 97 98 97 Oximetry 08/28/20 08/28/20 08/28/20 14:15 14:30 14:45 Temperature Pulse Rate 79 87 83 Pulse Rate [ From Monitor] Respiratory 20 16 17 Rate Respiratory Rate [Chest] Blood Pressure 104/58 104/58 122/70 O2 Sat by Pulse 98 98 98 Oximetry 08/28/20 08/28/20 08/28/20 15:00 15:15 15:30 Temperature Pulse Rate 83 78 80 Pulse Rate [ From Monitor] Respiratory 21 21 18 Rate Respiratory Rate [Chest] Blood Pressure 97/55 97/55 96/53 O2 Sat by Pulse 97 98 97 Oximetry 08/28/20 08/28/20 08/28/20 15:45 16:00 16:10 Temperature 98.2 F Pulse Rate 80 80 94 H Pulse Rate [ 86 From Monitor] Respiratory 19 19 28 H Rate Respiratory Rate [Chest] Blood Pressure 96/53 112/63 107/63 O2 Sat by Pulse 98 98 99 Oximetry 08/28/20 08/28/20 08/28/20 16:15 16:30 16:45 Temperature Pulse Rate 91 H 91 H 88 Pulse Rate [ From Monitor] Respiratory 19 18 20 Rate Respiratory Rate [Chest] Blood Pressure 112/63 121/72 121/72 O2 Sat by Pulse 98 98 99 Oximetry 08/28/20 08/28/20 08/28/20 17:00 17:15 17:30 Temperature Pulse Rate 86 96 H 93 H Pulse Rate [ From Monitor] Respiratory 20 22 18 Rate Respiratory Rate [Chest] Blood Pressure 107/63 107/63 133/79 O2 Sat by Pulse 98 99 99 Oximetry 08/28/20 08/28/20 17:45 18:01 Temperature Pulse Rate 100 H 98 H Pulse Rate [ From Monitor] Respiratory 18 30 H Rate Respiratory Rate [Chest] Blood Pressure 133/79 140/82 O2 Sat by Pulse 96 98 Oximetry General appearance: Present: disheveled, other (Encephalopathic no acute distress.) - EENT Eyes: PERRL, EOM intact - Respiratory Respiratory: bilateral: diminished, rhonchi (At bases.) - Cardiovascular Rhythm: regular Heart Sounds: Present: S1 & S2. Absent: gallop, rub Extremities: pulses intact, normal color Extremity abnormal: edema, other (Restrained however moves extremities.) - Gastrointestinal General gastrointestinal: Present: soft, other (Alternative means of feeding). Absent: hepatomegaly, splenomegaly - Musculoskeletal Musculoskeletal: generalized weakness - Labs CBC & Chem 7: 08/26/20 05:00 08/28/20 Unknown Labs: Abnormal lab results 08/28/20 08/28/20 08/28/20 Range/Units 00:49 05:20 05:59 RBC 2.89 L (3.65-5.03) M/mm3 Hgb 8.7 L (11.8-15.2) gm/dl Hct 25.7 L (35.5-45.6) % [place] % (Auto) 8.5 H (0.0-7.3) % Carbon Dioxide (22-30) mmol/L BUN (9-20) mg/dL Creatinine (0.8-1.3) mg/dL Glucose (75-100) mg/dL POC Glucose 193 H 217 H (70-105) mg/dL Magnesium (1.7-2.3) mg/dL 08/28/20 08/28/20 08/28/20 Range/Units 12:17 16:00 16:59 RBC (3.65-5.03) M/mm3 Hgb (11.8-15.2) gm/dl Hct (35.5-45.6) % [place] % (Auto) (0.0-7.3) % Carbon Dioxide (22-30) mmol/L BUN (9-20) mg/dL Creatinine (0.8-1.3) mg/dL Glucose (75-100) mg/dL POC Glucose 179 H 130 H (70-105) mg/dL Magnesium 1.40 L (1.7-2.3) mg/dL 08/28/20 Range/Units Unknown RBC (3.65-5.03) M/mm3 Hgb (11.8-15.2) gm/dl Hct (35.5-45.6) % [place] % (Auto) (0.0-7.3) % Carbon Dioxide 31 H (22-30) mmol/L BUN 23 H (9-20) mg/dL Creatinine 0.6 L (0.8-1.3) mg/dL Glucose 197 H (75-100) mg/dL POC Glucose (70-105) mg/dL Magnesium (1.7-2.3) mg/dL HEART Score - HEART Score Troponin: Troponin T < 0.010 ng/mL (0.00-0.029) 08/15/20 06:00
[2020-08-28] MEDS: ENOXAPARIN 40 MG/0.4 ML INJ SUB-Q SCH (21:02)
[2020-08-28] MEDS ORDERED: INSULIN GLARGINE 100 UNITS/ML SUB-Q SCH (22:00)
[2020-08-29] MEDS: INSULIN LISPRO 100 UNIT/ML VIAL 3 mL SUB-Q SCH ×4 (00:24→18:35)
[2020-08-29] MEDS: VANCOMYCIN 1,750 MG in SODIUM CHLORIDE 0.9% 500 ML 500 ML IV SCH (05:30)
[2020-08-29 05:36] LABS: Hematocrit 25.9 % (35.5-45.6); Hemoglobin 8.7 gm/dl (11.8-15.2); Mean Corpuscular HGB Conc 34 % (32-34); Mean Corpuscular Volume 88 fl (84-94); Platelet Count 240 K/mm3 (140-440); Red Blood Count 2.93 M/mm3 (3.65-5.03); Red Cell Distribution Width 14.7 % (13.2-15.2)
[2020-08-29 05:44] LABS: Blood Urea Nitrogen 18 mg/dL (9-20); Calcium 9.1 mg/dL (8.4-10.2); Hemolysis Index 0
[2020-08-29 05:45] LABS: BUN/Creatinine Ratio 36
[2020-08-29] MEDS: PHENobarbital 20 MG/5 ML ORAL LIQD FEEDTUBE SCH ×2 (06:44→14:48)
--- NOTE | 2020-08-29 06:53 | XRay Report ---
ABDOMEN, SINGLE VIEW INDICATION / CLINICAL INFORMATION: NGT placement. COMPARISON: None available. FINDINGS: NG tube is present. The tip is well positioned within the midportion of the stomach and is in satisfa ctory position. There is mild gaseous prominence of the stomach as well as multiple small bowel loops. Signer Name: Luana Mukherjee MD Signed: 08/29/2020 6:48 AM Workstation Name: [id number]
[2020-08-29] MEDS ORDERED: MAGNESIUM SULFATE 4 GM/100 ML BAG IV SCH (08:00)
[2020-08-29] MEDS ORDERED: POTASSIUM CHLORIDE 20 MEQ PACKET FEEDTUBE SCH (08:00)
[2020-08-29] MEDS: chlordiazePOXIDE 25 MG CAP PO SCH ×2 (08:05→14:48)
[2020-08-29] MEDS: QUEtiapine 100 MG TAB PO SCH (09:04)
[2020-08-29] MEDS: FAMOTIDINE 20 MG TAB PO SCH (09:04)
[2020-08-29] MEDS: INSULIN GLARGINE 100 UNITS/ML SUB-Q SCH (09:05)
[2020-08-29] MEDS: cefTRIAXone/NS 2 GM/100 ML 2 GM/100 ML BAG IV SCH (09:05)
--- NOTE | 2020-08-29 12:05 | Progress Note ---
Assessment and Plan Acute hypoxemic respiratory failure on MVS Acute encephalopathy, presumably toxic metabolic. Severe sepsis with shock. History of diabetes. History of a cerebrovascular accident with persistent left hemiparesis. History of alcohol abuse. Hypertension. Chronic pain syndrome. History of deep venous thrombosis. - ETT day number 14; still plan to give a trial of extubation shortly - continue Librium to spare IV sedation - prn Precedex post extubation - continue care as below otherwise; - continue Seroquel at 300 mg po bid re: agitation - continue daily SAT and SBT assessment as tolerated - continue to rest on AC qhs acutely - continue to wean supplemental oxygen for target O2 sat's > 92% acutely - VAP bundle addressed - continue lung protective strategies - continue bronchodilators with pulmonary hygiene per RT - wean per pulmonary driven protocols otherwise - accuchecks with glycemic control per SSI (While critically ill target blood glucose of 140-180 mg/dL; avoid hypoglycemia) - sedation prn for target RASS 0 to -1 - avoid nephrotoxins, renally dose all medications - complete AB's per ID rec's - prn analgesia per CPOT score - Maintenance of sleep-wake cycle, avoid delirium - continue enteral nutritional support at goal rate as tolerated - G.I. & VTE prophylaxis - PT/OT/ROM exercises - continue mobility protocols for pressure ulcer prophylaxis - Monitor hemodynamics closely - continue other care per attending / other consultants - discharge planning ongoing concurrently .... Re-evaluate in am & prn CONDITION: CRITICAL PROGNOSIS: GUARDED CODE STATUS: FULL CODE The high probability of a clinically significant, sudden or life-threatening deterioration of the [respiratory, cardiovascular & neurologic] system(s) required my full and direct attention, intervention and personal management. The aggregate critical care time was [35] minutes without overlap. Time includes spent on; [x] Data Review and interpretation [x] Patient assessment and monitoring of vital signs [x] Documentation [x] Medication orders and management Subjective Date of service: 08/29/20 Principal diagnosis: Ac hypoxemic resp failure; Ac encephalopathy (toxic metabolic); Sev. Sepsis Interval history: Patient is seen today for: Acute hypoxemic respiratory failure; Acute encephalopathy (toxic metabolic); Severe sepsis with shock; DM II; CVA; alcohol abuse; HTN; DVT Seen and examined at bedside; 24hour events reviewed; nursing and respiratory care staff consulted; no adverse overnight events reported to me; resting in bed; AMS is persistent; IV sedation on hold; remains on SBT now; no N/V/F/C Objective Vital Signs - 12hr 08/29/20 08/29/20 08/29/20 00:15 00:30 00:45 Temperature Pulse Rate 98 H 93 H 95 H Pulse Rate [ From Monitor] Respiratory 22 21 16 Rate Blood Pressure 147/83 142/85 142/85 O2 Sat by Pulse 100 100 100 Oximetry 08/29/20 08/29/20 08/29/20 01:01 01:15 01:30 Temperature Pulse Rate 96 H 89 93 H Pulse Rate [ From Monitor] Respiratory 14 16 19 Rate Blood Pressure 134/78 134/78 140/73 O2 Sat by Pulse 100 100 100 Oximetry 08/29/20 08/29/20 08/29/20 01:45 02:01 02:15 Temperature Pulse Rate 91 H 92 H 92 H Pulse Rate [ From Monitor] Respiratory 20 12 16 Rate Blood Pressure 140/73 123/74 123/74 O2 Sat by Pulse 99 100 100 Oximetry 08/29/20 08/29/20 08/29/20 02:30 02:45 03:00 Temperature Pulse Rate 83 87 82 Pulse Rate [ From Monitor] Respiratory 17 17 15 Rate Blood Pressure 121/68 121/68 113/66 O2 Sat by Pulse 99 99 100 Oximetry 08/29/20 08/29/20 08/29/20 03:15 03:30 03:45 Temperature Pulse Rate 86 81 83 Pulse Rate [ From Monitor] Respiratory 21 21 15 Rate Blood Pressure 113/66 117/67 117/67 O2 Sat by Pulse 100 95 96 Oximetry 08/29/20 08/29/20 08/29/20 04:00 04:15 04:39 Temperature 98.7 F Pulse Rate 79 79 Pulse Rate [ 79 From Monitor] Respiratory 18 21 Rate Blood Pressure 131/74 131/74 131/74 O2 Sat by Pulse 99 100 100 Oximetry 08/29/20 08/29/20 08/29/20 04:45 04:56 05:00 Temperature Pulse Rate 82 80 77 Pulse Rate [ From Monitor] Respiratory 13 20 Rate Blood Pressure 109/68 109/68 124/74 O2 Sat by Pulse 100 98 100 Oximetry 08/29/20 08/29/20 08/29/20 05:15 05:30 05:45 Temperature Pulse Rate 77 78 79 Pulse Rate [ From Monitor] Respiratory 20 19 20 Rate Blood Pressure 131/74 120/75 124/74 O2 Sat by Pulse 98 100 100 Oximetry 08/29/20 08/29/20 08/29/20 06:00 06:15 06:30 Temperature Pulse Rate 78 87 85 Pulse Rate [ From Monitor] Respiratory 15 25 H 13 Rate Blood Pressure 123/83 123/83 123/83 O2 Sat by Pulse 99 100 100 Oximetry 08/29/20 08/29/20 08/29/20 06:45 07:00 07:15 Temperature Pulse Rate 84 81 84 Pulse Rate [ From Monitor] Respiratory 14 17 15 Rate Blood Pressure 131/73 131/73 O2 Sat by Pulse 100 99 100 Oximetry 08/29/20 08/29/20 08/29/20 07:30 07:45 08:00 Temperature 98.2 F Pulse Rate 83 82 87 Pulse Rate [ 80 From Monitor] Respiratory 18 21 18 Rate Blood Pressure 131/75 131/75 146/84 O2 Sat by Pulse 100 99 99 Oximetry 08/29/20 08/29/20 08/29/20 08:15 08:24 08:27 Temperature Pulse Rate 86 83 82 Pulse Rate [ From Monitor] Respiratory 19 18 Rate Blood Pressure 146/84 146/84 146/84 O2 Sat by Pulse 99 100 98 Oximetry 08/29/20 08/29/20 08/29/20 08:30 08:45 09:01 Temperature Pulse Rate 81 81 85 Pulse Rate [ From Monitor] Respiratory 14 20 16 Rate Blood Pressure 132/70 132/70 141/79 O2 Sat by Pulse 100 99 99 Oximetry 08/29/20 08/29/20 08/29/20 09:15 09:30 09:45 Temperature Pulse Rate 79 78 83 Pulse Rate [ From Monitor] Respiratory 21 12 23 Rate Blood Pressure 141/79 123/69 123/69 O2 Sat by Pulse 100 100 99 Oximetry 08/29/20 08/29/20 08/29/20 10:01 10:15 10:30 Temperature Pulse Rate 79 82 85 Pulse Rate [ From Monitor] Respiratory 13 18 15 Rate Blood Pressure 106/57 106/57 115/66 O2 Sat by Pulse 98 99 99 Oximetry 08/29/20 08/29/20 08/29/20 10:45 10:57 11:00 Temperature Pulse Rate 85 87 85 Pulse Rate [ From Monitor] Respiratory 14 18 9 L Rate Blood Pressure 115/66 115/66 136/82 O2 Sat by Pulse 100 100 100 Oximetry 08/29/20 11:15 Temperature Pulse Rate 90 Pulse Rate [ From Monitor] Respiratory 15 Rate Blood Pressure 136/82 O2 Sat by Pulse 99 Oximetry Constitutional: no acute distress, other (middle aged male with mildly increased respiratory effort at rest on MVS) Eyes: non-icteric ENT: oropharynx moist, other (ETT 23 cm AMER[place]) Neck: supple, no lymphadenopathy, no JVD Effort: mildly labored Ascultation: Bilateral: diminished breath sounds, rhonchi (scant) Percussion: Bilateral: not dull Cardiovascular: regular rate and rhythm Gastrointestinal: normoactive bowel sounds, soft, non-tender, non-distended (protuberant) Integumentary: normal Extremities: no cyanosis, no edema, pink and warm, pulses normal, no ischemia or petechiae Neurologic: non-focal exam (grossly), pupils equal and round, motor strength normal and, other (sedated to RASS -1) Psychiatric: other (sedate) CBC and BMP: 08/29/20 04:44 08/29/20 04:45 ABG, PT/INR, D-dimer: ABG ABG pH 7.463 (7.320-7.450) H 08/25/20 11:53 POC ABG pCO2 37.9 mmHg (32.0-48.0) 08/25/20 11:53 ABG pCO2 35.2 mm Hg 08/21/20 04:22 POC ABG pO2 95.1 mmHg (83-108) 08/25/20 11:53 ABG pO2 89.9 mm Hg (80.0-90.0) 08/21/20 04:22 POC ABG HCO3 26.5 08/25/20 11:53 ABG O2 Saturation 97.3 % (95.0-99.0) 08/21/20 04:22 PT/INR, D-dimer PT 13.9 Sec. (12.2-14.9) 08/16/20 Unknown INR 1.06 (0.87-1.13) 08/16/20 Unknown D-Dimer 882.17 ng/mlDDU (0-234) H 08/16/20 14:45 D-Dimer 925.88 ng/mlDDU (0-234) H 08/16/20 14:45 Abnormal lab findings: Abnormal Labs 08/15/20 08/15/20 08/15/20 06:00 07:32 07:32 WBC RBC Hgb Hct MCHC RDW Vance % (Auto) Vance # (Auto) Seg Neutrophils % Seg Neutrophils # APTT D-Dimer ABG pH POC ABG pO2 ABG pO2 ABG HCO3 ABG Base Excess ABG Hemoglobin ABG Sodium ABG Potassium ABG Chloride ABG Glucose Oxyhemoglobin Carboxyhemoglobin Sodium 132 L Potassium Chloride 94.3 L Carbon Dioxide 19 L BUN 45 H Creatinine 1.6 H Glucose 285 H POC Glucose Calcium 10.4 H Phosphorus Magnesium Alkaline Phosphatase Total Creatine Kinase 446 H CK-MB (CK-2) 8.8 H C-Reactive Protein Total Protein Albumin 3.7 L Triglycerides Arterial Blood Glucose Arterial Blood Ionized Calcium Salicylates < 0.3 L Acetaminophen < 5.0 L 08/15/20 08/15/20 08/15/20 10:20 10:45 21:10 WBC RBC Hgb Hct MCHC RDW Vance % (Auto) Vance # (Auto) Seg Neutrophils % Seg Neutrophils # APTT D-Dimer ABG pH 7.338 L POC ABG pO2 110.3 H ABG pO2 105.9 H ABG HCO3 19.2 L ABG Base Excess -5.9 L ABG Hemoglobin 10.2 L 12.3 L ABG Sodium ABG Potassium ABG Chloride ABG Glucose Oxyhemoglobin Carboxyhemoglobin 1.7 H Sodium Potassium Chloride Carbon Dioxide BUN Creatinine Glucose 297 H POC Glucose Calcium Phosphorus Magnesium Alkaline Phosphatase Total Creatine Kinase CK-MB (CK-2) C-Reactive Protein Total Protein Albumin Triglycerides Arterial Blood Glucose Arterial Blood Ionized Calcium Salicylates Acetaminophen 08/16/20 08/16/20 08/16/20 04:30 08:59 14:45 WBC RBC Hgb Hct 35.3 L MCHC RDW 15.7 H Vance % (Auto) Vance # (Auto) Seg Neutrophils % Seg Neutrophils # APTT D-Dimer ABG pH 7.345 L POC ABG pO2 ABG pO2 134.5 H ABG HCO3 ABG Base Excess -5.2 L ABG Hemoglobin 12.1 L ABG Sodium ABG Potassium ABG Chloride ABG Glucose Oxyhemoglobin Carboxyhemoglobin Sodium Potassium 3.4 L Chloride 109.0 H Carbon Dioxide BUN 32 H Creatinine Glucose 186 H POC Glucose Calcium Phosphorus Magnesium Alkaline Phosphatase Total Creatine Kinase CK-MB (CK-2) C-Reactive Protein Total Protein 6.0 L Albumin 3.1 L Triglycerides Arterial Blood Glucose Arterial Blood Ionized Calcium Salicylates Acetaminophen 08/16/20 08/16/20 08/16/20 14:45 14:45 14:45 WBC RBC Hgb Hct MCHC RDW Vance % (Auto) Vance # (Auto) Seg Neutrophils % Seg Neutrophils # APTT D-Dimer 925.88 H 882.17 H ABG pH POC ABG pO2 ABG pO2 ABG HCO3 ABG Base Excess ABG Hemoglobin ABG Sodium ABG Potassium ABG Chloride ABG Glucose Oxyhemoglobin Carboxyhemoglobin Sodium Potassium Chloride Carbon Dioxide BUN Creatinine Glucose POC Glucose Calcium Phosphorus 1.50 L Magnesium 1.60 L Alkaline Phosphatase Total Creatine Kinase CK-MB (CK-2) C-Reactive Protein Total Protein Albumin Triglycerides Arterial Blood Glucose Arterial Blood Ionized Calcium Salicylates Acetaminophen 08/16/20 08/16/20 08/16/20 14:45 17:42 Unknown WBC 16.7 H RBC Hgb Hct MCHC RDW Vance % (Auto) Vance # (Auto) 1.0 H Seg Neutrophils % 79.9 H Seg Neutrophils # 13.4 H APTT D-Dimer ABG pH POC ABG pO2 ABG pO2 ABG HCO3 ABG Base Excess ABG Hemoglobin ABG Sodium ABG Potassium ABG Chloride ABG Glucose Oxyhemoglobin Carboxyhemoglobin Sodium Potassium Chloride Carbon Dioxide BUN Creatinine Glucose POC Glucose 169 H Calcium Phosphorus Magnesium Alkaline Phosphatase Total Creatine Kinase CK-MB (CK-2) C-Reactive Protein 2.70 H Total Protein Albumin Triglycerides Arterial Blood Glucose Arterial Blood Ionized Calcium Salicylates Acetaminophen 08/16/20 08/16/20 08/17/20 Unknown Unknown 00:06 WBC RBC Hgb Hct MCHC RDW Vance % (Auto) Vance # (Auto) Seg Neutrophils % Seg Neutrophils # APTT 23.9 L D-Dimer ABG pH POC ABG pO2 ABG pO2 ABG HCO3 ABG Base Excess ABG Hemoglobin ABG Sodium ABG Potassium ABG Chloride ABG Glucose Oxyhemoglobin Carboxyhemoglobin Sodium Potassium Chloride Carbon Dioxide 17 L BUN 33 H Creatinine Glucose 233 H POC Glucose 125 H Calcium Phosphorus Magnesium Alkaline Phosphatase Total Creatine Kinase CK-MB (CK-2) C-Reactive Protein Total Protein Albumin Triglycerides Arterial Blood Glucose Arterial Blood Ionized Calcium Salicylates Acetaminophen 08/17/20 08/17/20 08/17/20 03:40 05:52 12:30 WBC RBC Hgb Hct MCHC RDW Vance % (Auto) Vance # (Auto) Seg Neutrophils % Seg Neutrophils # APTT D-Dimer ABG pH POC ABG pO2 60.8 L ABG pO2 ABG HCO3 ABG Base Excess ABG Hemoglobin ABG Sodium ABG Potassium ABG Chloride 115.0 H ABG Glucose 139 H Oxyhemoglobin Carboxyhemoglobin Sodium Potassium Chloride Carbon Dioxide BUN Creatinine Glucose POC Glucose 139 H 133 H Calcium Phosphorus Magnesium Alkaline Phosphatase Total Creatine Kinase CK-MB (CK-2) C-Reactive Protein Total Protein Albumin Triglycerides Arterial Blood Glucose 139 H Arterial Blood Ionized Calcium 5.5 H Salicylates Acetaminophen 08/17/20 08/18/20 08/18/20 17:47 00:08 04:00 WBC RBC Hgb Hct MCHC RDW Vance % (Auto) Vance # (Auto) Seg Neutrophils % Seg Neutrophils # APTT D-Dimer ABG pH 7.315 L POC ABG pO2 ABG pO2 75.1 L ABG HCO3 ABG Base Excess -4.3 L ABG Hemoglobin 11.9 L ABG Sodium ABG Potassium ABG Chloride ABG Glucose Oxyhemoglobin 93.7 L Carboxyhemoglobin Sodium Potassium Chloride Carbon Dioxide BUN Creatinine Glucose POC Glucose 157 H 129 H Calcium Phosphorus Magnesium Alkaline Phosphatase Total Creatine Kinase CK-MB (CK-2) C-Reactive Protein Total Protein Albumin Triglycerides Arterial Blood Glucose Arterial Blood Ionized Calcium Salicylates Acetaminophen 08/18/20 08/18/20 08/19/20 05:31 12:26 00:02 WBC RBC Hgb Hct MCHC RDW Vance % (Auto) Vance # (Auto) Seg Neutrophils % Seg Neutrophils # APTT D-Dimer ABG pH POC ABG pO2 ABG pO2 ABG HCO3 ABG Base Excess ABG Hemoglobin ABG Sodium ABG Potassium ABG Chloride ABG Glucose Oxyhemoglobin Carboxyhemoglobin Sodium Potassium Chloride Carbon Dioxide BUN Creatinine Glucose POC Glucose 114 H 112 H 107 H Calcium Phosphorus Magnesium Alkaline Phosphatase Total Creatine Kinase CK-MB (CK-2) C-Reactive Protein Total Protein Albumin Triglycerides Arterial Blood Glucose Arterial Blood Ionized Calcium Salicylates Acetaminophen 08/19/20 08/19/20 08/19/20 04:19 05:34 12:48 WBC RBC Hgb Hct MCHC RDW Vance % (Auto) Vance # (Auto) Seg Neutrophils % Seg Neutrophils # APTT D-Dimer ABG pH 7.451 H POC ABG pO2 172.9 H ABG pO2 ABG HCO3 ABG Base Excess ABG Hemoglobin ABG Sodium ABG Potassium ABG Chloride ABG Glucose Oxyhemoglobin Carboxyhemoglobin Sodium Potassium Chloride Carbon Dioxide BUN Creatinine Glucose POC Glucose 114 H 198 H Calcium Phosphorus Magnesium Alkaline Phosphatase Total Creatine Kinase CK-MB (CK-2) C-Reactive Protein Total Protein Albumin Triglycerides Arterial Blood Glucose Arterial Blood Ionized Calcium Salicylates Acetaminophen 08/19/20 08/19/20 08/20/20 18:01 21:40 05:00 WBC RBC Hgb Hct MCHC RDW Vance % (Auto) Vance # (Auto) Seg Neutrophils % Seg Neutrophils # APTT D-Dimer ABG pH POC ABG pO2 72.1 L ABG pO2 ABG HCO3 ABG Base Excess ABG Hemoglobin ABG Sodium 132.4 L ABG Potassium 2.7 L ABG Chloride ABG Glucose 293 H Oxyhemoglobin Carboxyhemoglobin Sodium Potassium Chloride Carbon Dioxide BUN Creatinine Glucose POC Glucose 211 H 252 H Calcium Phosphorus Magnesium Alkaline Phosphatase Total Creatine Kinase CK-MB (CK-2) C-Reactive Protein Total Protein Albumin Triglycerides Arterial Blood Glucose 293 H Arterial Blood Ionized Calcium Salicylates Acetaminophen 08/20/20 08/20/20 08/20/20 05:15 07:06 07:45 WBC RBC Hgb Hct MCHC RDW Vance % (Auto) Vance # (Auto) Seg Neutrophils % Seg Neutrophils # APTT D-Dimer ABG pH POC ABG pO2 ABG pO2 ABG HCO3 ABG Base Excess ABG Hemoglobin ABG Sodium ABG Potassium ABG Chloride ABG Glucose Oxyhemoglobin Carboxyhemoglobin Sodium Potassium 2.9 L* Chloride Carbon Dioxide BUN Creatinine 0.6 L Glucose 304 H POC Glucose 238 H Calcium Phosphorus Magnesium Alkaline Phosphatase Total Creatine Kinase CK-MB (CK-2) C-Reactive Protein Total Protein Albumin Triglycerides 260 H Arterial Blood Glucose Arterial Blood Ionized Calcium Salicylates Acetaminophen 08/20/20 08/20/20 08/21/20 12:20 17:49 00:18 WBC RBC Hgb Hct MCHC RDW Vance % (Auto) Vance # (Auto) Seg Neutrophils % Seg Neutrophils # APTT D-Dimer ABG pH POC ABG pO2 ABG pO2 ABG HCO3 ABG Base Excess ABG Hemoglobin ABG Sodium ABG Potassium ABG Chloride ABG Glucose Oxyhemoglobin Carboxyhemoglobin Sodium Potassium Chloride Carbon Dioxide BUN Creatinine Glucose POC Glucose 303 H 302 H 254 H Calcium Phosphorus Magnesium Alkaline Phosphatase Total Creatine Kinase CK-MB (CK-2) C-Reactive Protein Total Protein Albumin Triglycerides Arterial Blood Glucose Arterial Blood Ionized Calcium Salicylates Acetaminophen 08/21/20 08/21/20 08/21/20 04:05 04:05 04:22 WBC RBC 3.50 L Hgb 10.9 L Hct 31.3 L MCHC 35 H RDW Vance % (Auto) Vance # (Auto) Seg Neutrophils % Seg Neutrophils # APTT D-Dimer ABG pH POC ABG pO2 ABG pO2 ABG HCO3 ABG Base Excess ABG Hemoglobin 10.9 L ABG Sodium ABG Potassium ABG Chloride ABG Glucose Oxyhemoglobin Carboxyhemoglobin Sodium Potassium 3.5 L D Chloride Carbon Dioxide BUN 24 H Creatinine 0.5 L Glucose 274 H POC Glucose Calcium Phosphorus Magnesium Alkaline Phosphatase Total Creatine Kinase CK-MB (CK-2) C-Reactive Protein Total Protein Albumin Triglycerides Arterial Blood Glucose Arterial Blood Ionized Calcium Salicylates Acetaminophen 08/21/20 08/21/20 08/21/20 05:13 11:30 17:37 WBC RBC Hgb Hct MCHC RDW Vance % (Auto) Vance # (Auto) Seg Neutrophils % Seg Neutrophils # APTT D-Dimer ABG pH POC ABG pO2 ABG pO2 ABG HCO3 ABG Base Excess ABG Hemoglobin ABG Sodium ABG Potassium ABG Chloride ABG Glucose Oxyhemoglobin Carboxyhemoglobin Sodium Potassium Chloride Carbon Dioxide BUN Creatinine Glucose POC Glucose 240 H 296 H 272 H Calcium Phosphorus Magnesium Alkaline Phosphatase Total Creatine Kinase CK-MB (CK-2) C-Reactive Protein Total Protein Albumin Triglycerides Arterial Blood Glucose Arterial Blood Ionized Calcium Salicylates Acetaminophen 08/21/20 08/22/20 08/22/20 Unknown 00:42 04:00 WBC RBC Hgb 11.2 L Hct 33.1 L MCHC RDW Vance % (Auto) Vance # (Auto) Seg Neutrophils % Seg Neutrophils # APTT D-Dimer ABG pH POC ABG pO2 ABG pO2 ABG HCO3 ABG Base Excess ABG Hemoglobin ABG Sodium ABG Potassium ABG Chloride ABG Glucose Oxyhemoglobin Carboxyhemoglobin Sodium Potassium Chloride Carbon Dioxide BUN Creatinine Glucose POC Glucose 278 H Calcium Phosphorus Magnesium 1.30 L Alkaline Phosphatase Total Creatine Kinase CK-MB (CK-2) C-Reactive Protein Total Protein Albumin Triglycerides Arterial Blood Glucose Arterial Blood Ionized Calcium Salicylates Acetaminophen 08/22/20 08/22/20 08/22/20 04:00 05:31 05:52 WBC RBC Hgb Hct MCHC RDW Vance % (Auto) Vance # (Auto) Seg Neutrophils % Seg Neutrophils # APTT D-Dimer ABG pH POC ABG pO2 64.0 L ABG pO2 ABG HCO3 ABG Base Excess ABG Hemoglobin 11.9 L ABG Sodium ABG Potassium ABG Chloride ABG Glucose 238 H Oxyhemoglobin Carboxyhemoglobin Sodium Potassium 3.4 L Chloride Carbon Dioxide BUN 23 H Creatinine 0.5 L Glucose 266 H POC Glucose 236 H Calcium Phosphorus Magnesium Alkaline Phosphatase Total Creatine Kinase CK-MB (CK-2) C-Reactive Protein Total Protein Albumin Triglycerides Arterial Blood Glucose 238 H Arterial Blood Ionized Calcium Salicylates Acetaminophen 08/22/20 08/22/20 08/22/20 12:51 13:37 17:14 WBC RBC Hgb Hct MCHC RDW Vance % (Auto) Vance # (Auto) Seg Neutrophils % Seg Neutrophils # APTT D-Dimer ABG pH POC ABG pO2 ABG pO2 ABG HCO3 ABG Base Excess ABG Hemoglobin ABG Sodium ABG Potassium ABG Chloride ABG Glucose Oxyhemoglobin Carboxyhemoglobin Sodium Potassium Chloride Carbon Dioxide BUN Creatinine Glucose POC Glucose 279 H 287 H Calcium Phosphorus Magnesium 1.60 L Alkaline Phosphatase Total Creatine Kinase CK-MB (CK-2) C-Reactive Protein Total Protein Albumin Triglycerides Arterial Blood Glucose Arterial Blood Ionized Calcium Salicylates Acetaminophen 08/23/20 08/23/20 08/23/20 00:03 04:29 04:29 WBC RBC 3.43 L Hgb 10.7 L Hct 30.9 L MCHC 35 H RDW Vance % (Auto) Vance # (Auto) Seg Neutrophils % Seg Neutrophils # APTT D-Dimer ABG pH POC ABG pO2 ABG pO2 ABG HCO3 ABG Base Excess ABG Hemoglobin ABG Sodium ABG Potassium ABG Chloride ABG Glucose Oxyhemoglobin Carboxyhemoglobin Sodium Potassium Chloride Carbon Dioxide BUN 26 H Creatinine 0.5 L Glucose 257 H POC Glucose 312 H Calcium Phosphorus Magnesium Alkaline Phosphatase Total Creatine Kinase CK-MB (CK-2) C-Reactive Protein Total Protein Albumin Triglycerides Arterial Blood Glucose Arterial Blood Ionized Calcium Salicylates Acetaminophen 08/23/20 08/23/20 08/23/20 05:27 12:36 13:35 WBC RBC Hgb Hct MCHC RDW Vance % (Auto) Vance # (Auto) Seg Neutrophils % Seg Neutrophils # APTT D-Dimer ABG pH POC ABG pO2 ABG pO2 ABG HCO3 ABG Base Excess ABG Hemoglobin ABG Sodium ABG Potassium ABG Chloride ABG Glucose 301 H Oxyhemoglobin Carboxyhemoglobin Sodium Potassium Chloride Carbon Dioxide BUN Creatinine Glucose POC Glucose 235 H 282 H Calcium Phosphorus Magnesium Alkaline Phosphatase Total Creatine Kinase CK-MB (CK-2) C-Reactive Protein Total Protein Albumin Triglycerides Arterial Blood Glucose 301 H Arterial Blood Ionized Calcium Salicylates Acetaminophen 08/23/20 08/23/20 08/23/20 17:58 22:34 23:48 WBC RBC Hgb Hct MCHC RDW Vance % (Auto) Vance # (Auto) Seg Neutrophils % Seg Neutrophils # APTT D-Dimer ABG pH POC ABG pO2 ABG pO2 ABG HCO3 ABG Base Excess ABG Hemoglobin ABG Sodium ABG Potassium ABG Chloride ABG Glucose Oxyhemoglobin Carboxyhemoglobin Sodium Potassium Chloride Carbon Dioxide BUN Creatinine Glucose POC Glucose 313 H 271 H 298 H Calcium Phosphorus Magnesium Alkaline Phosphatase Total Creatine Kinase CK-MB (CK-2) C-Reactive Protein Total Protein Albumin Triglycerides Arterial Blood Glucose Arterial Blood Ionized Calcium Salicylates Acetaminophen 08/24/20 08/24/20 08/24/20 04:19 04:19 06:19 WBC RBC 3.40 L Hgb 10.4 L Hct 30.9 L MCHC RDW Vance % (Auto) 9.1 H Vance # (Auto) Seg Neutrophils % 73.8 H Seg Neutrophils # APTT D-Dimer ABG pH POC ABG pO2 ABG pO2 ABG HCO3 ABG Base Excess ABG Hemoglobin ABG Sodium ABG Potassium ABG Chloride ABG Glucose Oxyhemoglobin Carboxyhemoglobin Sodium Potassium Chloride Carbon Dioxide BUN 22 H Creatinine 0.5 L Glucose 296 H POC Glucose 328 H Calcium Phosphorus Magnesium Alkaline Phosphatase 147 H Total Creatine Kinase CK-MB (CK-2) C-Reactive Protein Total Protein 5.9 L Albumin 2.6 L Triglycerides Arterial Blood Glucose Arterial Blood Ionized Calcium Salicylates Acetaminophen 08/24/20 08/24/20 08/24/20 12:15 17:20 21:59 WBC RBC Hgb Hct MCHC RDW Vance % (Auto) Vance # (Auto) Seg Neutrophils % Seg Neutrophils # APTT D-Dimer ABG pH POC ABG pO2 ABG pO2 ABG HCO3 ABG Base Excess ABG Hemoglobin ABG Sodium ABG Potassium ABG Chloride ABG Glucose Oxyhemoglobin Carboxyhemoglobin Sodium Potassium Chloride Carbon Dioxide BUN Creatinine Glucose POC Glucose 251 H 345 H 249 H Calcium Phosphorus Magnesium Alkaline Phosphatase Total Creatine Kinase CK-MB (CK-2) C-Reactive Protein Total Protein Albumin Triglycerides Arterial Blood Glucose Arterial Blood Ionized Calcium Salicylates Acetaminophen 08/25/20 08/25/20 08/25/20 00:23 04:33 04:33 WBC 14.9 H RBC 3.22 L Hgb 9.9 L Hct 28.5 L MCHC 35 H RDW Vance % (Auto) Vance # (Auto) 1.0 H Seg Neutrophils % 71.9 H Seg Neutrophils # 10.6 H APTT D-Dimer ABG pH POC ABG pO2 ABG pO2 ABG HCO3 ABG Base Excess ABG Hemoglobin ABG Sodium ABG Potassium ABG Chloride ABG Glucose Oxyhemoglobin Carboxyhemoglobin Sodium 136 L Potassium Chloride Carbon Dioxide BUN 21 H Creatinine 0.5 L Glucose 225 H POC Glucose 269 H Calcium Phosphorus Magnesium Alkaline Phosphatase 166 H Total Creatine Kinase CK-MB (CK-2) C-Reactive Protein Total Protein 6.0 L Albumin 2.3 L Triglycerides Arterial Blood Glucose Arterial Blood Ionized Calcium Salicylates Acetaminophen 08/25/20 08/25/20 08/25/20 05:34 11:53 12:39 WBC RBC Hgb Hct MCHC RDW Vance % (Auto) Vance # (Auto) Seg Neutrophils % Seg Neutrophils # APTT D-Dimer ABG pH 7.463 H POC ABG pO2 ABG pO2 ABG HCO3 ABG Base Excess ABG Hemoglobin 10.3 L ABG Sodium 135.3 L ABG Potassium ABG Chloride ABG Glucose 254 H Oxyhemoglobin Carboxyhemoglobin Sodium Potassium Chloride Carbon Dioxide BUN Creatinine Glucose POC Glucose 215 H 291 H Calcium Phosphorus Magnesium Alkaline Phosphatase Total Creatine Kinase CK-MB (CK-2) C-Reactive Protein Total Protein Albumin Triglycerides Arterial Blood Glucose 254 H Arterial Blood Ionized Calcium Salicylates Acetaminophen 08/25/20 08/25/20 08/25/20 18:04 21:41 23:45 WBC RBC Hgb Hct MCHC RDW Vance % (Auto) Vance # (Auto) Seg Neutrophils % Seg Neutrophils # APTT D-Dimer ABG pH POC ABG pO2 ABG pO2 ABG HCO3 ABG Base Excess ABG Hemoglobin ABG Sodium ABG Potassium ABG Chloride ABG Glucose Oxyhemoglobin Carboxyhemoglobin Sodium Potassium Chloride Carbon Dioxide BUN Creatinine Glucose POC Glucose 200 H 136 H 191 H Calcium Phosphorus Magnesium Alkaline Phosphatase Total Creatine Kinase CK-MB (CK-2) C-Reactive Protein Total Protein Albumin Triglycerides Arterial Blood Glucose Arterial Blood Ionized Calcium Salicylates Acetaminophen 08/26/20 08/26/20 08/26/20 04:49 05:00 05:00 WBC RBC 3.05 L Hgb 9.3 L Hct 27.3 L MCHC RDW Vance % (Auto) 9.0 H Vance # (Auto) Seg Neutrophils % Seg Neutrophils # APTT D-Dimer ABG pH POC ABG pO2 ABG pO2 ABG HCO3 ABG Base Excess ABG Hemoglobin ABG Sodium ABG Potassium ABG Chloride ABG Glucose Oxyhemoglobin Carboxyhemoglobin Sodium Potassium Chloride Carbon Dioxide BUN 23 H Creatinine 0.5 L Glucose 220 H POC Glucose 251 H Calcium Phosphorus Magnesium Alkaline Phosphatase 197 H Total Creatine Kinase CK-MB (CK-2) C-Reactive Protein Total Protein 5.9 L Albumin 2.6 L Triglycerides Arterial Blood Glucose Arterial Blood Ionized Calcium Salicylates Acetaminophen 08/26/20 08/26/20 08/26/20 12:09 18:16 22:50 WBC RBC Hgb Hct MCHC RDW Vance % (Auto) Vance # (Auto) Seg Neutrophils % Seg Neutrophils # APTT D-Dimer ABG pH POC ABG pO2 ABG pO2 ABG HCO3 ABG Base Excess ABG Hemoglobin ABG Sodium ABG Potassium ABG Chloride ABG Glucose Oxyhemoglobin Carboxyhemoglobin Sodium Potassium Chloride Carbon Dioxide BUN Creatinine Glucose POC Glucose 263 H 268 H 125 H Calcium Phosphorus Magnesium Alkaline Phosphatase Total Creatine Kinase CK-MB (CK-2) C-Reactive Protein Total Protein Albumin Triglycerides Arterial Blood Glucose Arterial Blood Ionized Calcium Salicylates Acetaminophen 08/27/20 08/27/20 08/27/20 00:28 06:05 12:07 WBC RBC Hgb Hct MCHC RDW Vance % (Auto) Vance # (Auto) Seg Neutrophils % Seg Neutrophils # APTT D-Dimer ABG pH POC ABG pO2 ABG pO2 ABG HCO3 ABG Base Excess ABG Hemoglobin ABG Sodium ABG Potassium ABG Chloride ABG Glucose Oxyhemoglobin Carboxyhemoglobin Sodium Potassium Chloride Carbon Dioxide BUN Creatinine Glucose POC Glucose 177 H 271 H 278 H Calcium Phosphorus Magnesium Alkaline Phosphatase Total Creatine Kinase CK-MB (CK-2) C-Reactive Protein Total Protein Albumin Triglycerides Arterial Blood Glucose Arterial Blood Ionized Calcium Salicylates Acetaminophen 08/27/20 08/28/20 08/28/20 16:40 00:49 05:20 WBC RBC 2.89 L Hgb 8.7 L Hct 25.7 L MCHC RDW Vance % (Auto) 8.5 H Vance # (Auto) Seg Neutrophils % Seg Neutrophils # APTT D-Dimer ABG pH POC ABG pO2 ABG pO2 ABG HCO3 ABG Base Excess ABG Hemoglobin ABG Sodium ABG Potassium ABG Chloride ABG Glucose Oxyhemoglobin Carboxyhemoglobin Sodium Potassium Chloride Carbon Dioxide BUN Creatinine Glucose POC Glucose 242 H 193 H Calcium Phosphorus Magnesium Alkaline Phosphatase Total Creatine Kinase CK-MB (CK-2) C-Reactive Protein Total Protein Albumin Triglycerides Arterial Blood Glucose Arterial Blood Ionized Calcium Salicylates Acetaminophen 08/28/20 08/28/20 08/28/20 05:59 12:17 16:00 WBC RBC Hgb Hct MCHC RDW Vance % (Auto) Vance # (Auto) Seg Neutrophils % Seg Neutrophils # APTT D-Dimer ABG pH POC ABG pO2 ABG pO2 ABG HCO3 ABG Base Excess ABG Hemoglobin ABG Sodium ABG Potassium ABG Chloride ABG Glucose Oxyhemoglobin Carboxyhemoglobin Sodium Potassium Chloride Carbon Dioxide BUN Creatinine Glucose POC Glucose 217 H 179 H Calcium Phosphorus Magnesium 1.40 L Alkaline Phosphatase Total Creatine Kinase CK-MB (CK-2) C-Reactive Protein Total Protein Albumin Triglycerides Arterial Blood Glucose Arterial Blood Ionized Calcium Salicylates Acetaminophen 08/28/20 08/28/20 08/29/20 16:59 Unknown 00:33 WBC RBC Hgb Hct MCHC RDW Vance % (Auto) Vance # (Auto) Seg Neutrophils % Seg Neutrophils # APTT D-Dimer ABG pH POC ABG pO2 ABG pO2 ABG HCO3 ABG Base Excess ABG Hemoglobin ABG Sodium ABG Potassium ABG Chloride ABG Glucose Oxyhemoglobin Carboxyhemoglobin Sodium Potassium Chloride Carbon Dioxide 31 H BUN 23 H Creatinine 0.6 L Glucose 197 H POC Glucose 130 H 251 H Calcium Phosphorus Magnesium Alkaline Phosphatase Total Creatine Kinase CK-MB (CK-2) C-Reactive Protein Total Protein Albumin Triglycerides Arterial Blood Glucose Arterial Blood Ionized Calcium Salicylates Acetaminophen 08/29/20 08/29/20 04:44 04:45 WBC RBC 2.93 L Hgb 8.7 L Hct 25.9 L MCHC RDW Vance % (Auto) Vance # (Auto) Seg Neutrophils % Seg Neutrophils # APTT D-Dimer ABG pH POC ABG pO2 ABG pO2 ABG HCO3 ABG Base Excess ABG Hemoglobin ABG Sodium ABG Potassium ABG Chloride ABG Glucose Oxyhemoglobin Carboxyhemoglobin Sodium Potassium Chloride Carbon Dioxide BUN Creatinine 0.5 L Glucose 144 H POC Glucose Calcium Phosphorus Magnesium Alkaline Phosphatase Total Creatine Kinase CK-MB (CK-2) C-Reactive Protein Total Protein Albumin Triglycerides Arterial Blood Glucose Arterial Blood Ionized Calcium Salicylates Acetaminophen Chest x-ray: pending Allied health notes reviewed: nursing
--- NOTE | 2020-08-29 14:29 | Progress Note ---
Assessment and Plan Cultures: 08/15/2020 blood cultures no growth today 08/15/2020 CSF culture no growth today 11/15/2019 urine culture no growth Assessment: 55 years old male with history of diabetes mellitus, hypertension, peripheral vascular disease, alcohol abuse, tobacco abuse, left foot diabetic ulceration with an abscess secondary to MRSA in February 2020, admitted on 08/16/2020 due to altered mental status lethargy unresponsive: #Severe sepsis with septic shock: Off pressors, leukocytosis resolved, remains low-grade fever. Source unclear, possible right elbow infection, pneumonia, discitis?, pyelonephritis. Chest x-ray possible right lower lobe infiltrate. Urinalysis negative. SARS-CoV-2 PCR negative. Patient underwent lumbar puncture in the emergency room, ED provider kindly contacted me with results - WBCs 10, RBCs 381. This is not consistent with meningitis. Procalcitonin normal. #Possible pneumonia: Repeat CXR mild infiltrates. CT with LLL consolidation. Sputum culture grew MSSA ? colonizer vs real (no wbc in resp specimen) #?Pyelonephritis: CT with bilateral fat perinephric fat stranding and retroperitoneal LNs however UA negative. #Acute hypoxemic respiratory failure: Patient intubated #Right elbow ulcer abscess/ cellulitis: CT with no abscess or effusion or osteomyelitis #Acute encephalopathy: Likely secondary to sepsis versus metabolic. ?drugs. 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 CSF with no pleocytosis but high protein. #Peripheral vascular disease: Very cold feet bilaterally. Arterial Doppler without any evidence of PAD?. Previous arterial Doppler abnormal. #Multiple skin tears in left hand and left lower extremities: Likely secondary to peripheral vascular disease #Possible L5-S1 discitis seen on CT: ? Recommendations: -MRI of the lumbar spine canceled given that no family available for MRI questionnaire -Continue vancomycin 1 g IV every 12 and ceftriaxone 2 g IV daily total 6 weeks to cover lumbar discitis given significant destruction of endplate of L5-S1 until 09/27/2020. Keep vancomycin throughout 10 to 20 mcg/dL -Orders sent to nurse case management -Wound care consultation Will follow. Pastora Gongora MD Infectious Diseases Curtain Cutter [employer] [facility] ([facility]) M [phone] O [phone] Subjective Date of service: 08/29/20 Principal diagnosis: Ac hypoxemic resp failure; Ac encephalopathy (toxic metabolic); Sev. Sepsis Interval history: Patient remains afebrile, off sedation intubated on CPAP Objective - Exam Narrative Exam: General appearance: Sedated in no acute distress intubated Eyes: anicteric sclerae, moist conjunctivae; no lid-lag; PERRLA HENT: Atraumatic; oropharynx clear limited endotracheal tube in place Lungs: Clear to auscultation bilaterally CV: RRR no murmur Abdomen: Soft, nontender Extremities: Left foot partial amputation healed. Right elbow with an open wound, deep cord with the residents Skin: Multiple lower extremity skin tear. Psych: Off sedation Neuro: Off sedation - - Constitutional Vitals: Vital Signs Temp Pulse Resp BP Pulse Ox 98.4 F 88 10 L 128/71 100 08/29/20 12:00 08/29/20 13:00 08/29/20 13:00 08/29/20 13:00 08/29/20 13:00 Temperature -Last 24 Hours Temperature 98.4 F Temperature 98.2 F Temperature 98.7 F Temperature 99.2 F Temperature 100.7 F Temperature 98.2 F - Labs CBC & Chem 7: 08/29/20 04:44 08/29/20 04:45 Labs: Abnormal lab results 08/28/20 08/28/20 08/29/20 Range/Units 16:00 16:59 00:33 RBC (3.65-5.03) M/mm3 Hgb (11.8-15.2) gm/dl Hct (35.5-45.6) % Creatinine (0.8-1.3) mg/dL Glucose (75-100) mg/dL POC Glucose 130 H 251 H (70-105) mg/dL Magnesium 1.40 L (1.7-2.3) mg/dL 08/29/20 08/29/20 08/29/20 Range/Units 04:44 04:45 11:45 RBC 2.93 L (3.65-5.03) M/mm3 Hgb 8.7 L (11.8-15.2) gm/dl Hct 25.9 L (35.5-45.6) % Creatinine 0.5 L (0.8-1.3) mg/dL Glucose 144 H (75-100) mg/dL POC Glucose 133 H (70-105) mg/dL Magnesium (1.7-2.3) mg/dL
[2020-08-29 17:32] VITALS: BP 135/81
--- NOTE | 2020-08-29 18:25 | Discharge Summary ---
Providers - Providers Date of Admission: 08/15/20 11:00 Date of discharge: 08/29/20 Attending physician: JANIS SNIDER 08/16/20 10:30 Consult to Dietitian/Nutrition [CONS] Routine Physician Instructions: Reason For Exam: Reason for Consult: Evaluate nutritional intake 08/16/20 12:33 Consult to Physician [CONS] Routine Comment: Consulting Provider: ANANYA GAMBLE Physician Instructions: Reason For Exam: AMS Consult to Physician [CONS] Routine Comment: Consulting Provider: MARTÍN SIMON Physician Instructions: Reason For Exam: sepsis 08/16/20 14:29 Consult to Wound/ET Nurse [CONS] Urgent Reason For Exam: wound eval 08/17/20 16:54 Consult to Dietitian/Nutrition [CONS] Routine Physician Instructions: Reason For Exam: Reason for Consult: Write/Manage TPN/PPN 08/25/20 13:09 Consult to Case Management [CONS] Stat Services Needed at Discharge: Other Notified:: oim consultant Additional Physician Instructions: [facility] ([facility]) [address] [place] [address] OUTPATIENT PARENTERAL ANTIBIOTIC THERAPY (OPAT) ORDERS Diagnoses: Lumbar discitis Administer: vancomycin 1 g IV every 12 and ceftriaxone 2 g IV daily total 6 weeks until 09/27/2020. Keep vancomycin throughout 10 to 20 mcg/dL Remove PICC line after last dose unless otherwise instructed. Line: Maintain IV access with weekly dressing changes and locks per protocol. Labs: Every Friday CBC, AST, ALT, Creatinine, vancomcyin trough. Please fax results to [phone] and call [phone] for critical lab results. Pastora Rueda MD Infectious Diseases Creel Operator [facility] ([facility]) O: [phone] F: [phone] 08/25/20 13:10 Consult to PICC Line RN [CONS] Stat Reason For Exam: IV antibiotics Type Line:: PICC Primary care physician: AGRONOMY SUPERVISOR Hospitalization Reason for admission: Acute hypoxic respiratory failure. Condition: Undetermined Pertinent studies: CTA head and neck showed calcified plaque in the proximal left ICA less than 50% stenosis. CT head Old left frontal cortical infarction CT spine Unremarkable Lower extremity Doppler Negative for DVT Lumbar puncture WBC 10 RBC 383 unremarkable. COVID-[address] scan upper extremity Possible abscess in anterior fossa Hospital course: Patient is a 55-year-old male with a history of past alcohol use tobacco abuse, hypertension, diabetes, hyperlipidemia and peripheral vascular disease with multiple surgeries related to PVD last in February. Patient also had abscess in left foot which she was treated with vancomycin for 3 weeks. Patient presented to the ED after being [place] store. By the time patient presented to the ED he was found to be hypoxic and in distress. Patient was intubated to protect airways and respiratory failure. Work-up throughout hospital stay found patient to be septic etiology was thought to be possible elbow infection versus skin infection versus diabetic foot infection. ID consult was obtained and patient was started on vancomycin and Rocephin for this as well as urinary tract infection. Exact etiology for patient's acute encephalopathy and respiratory distress thought to be possibly secondary to cardiorespiratory arrest versus sepsis. After treating possible underlying mechanisms including sepsis with antibiotics patient mental status responded somewhat and while he was less encephalopathic he was not alert enough to be extubated. Patient was then cleared for transfer to LTAC to provide supportive care during attempts at extubation and also treat underlying infection with continued antibiotics. Disposition: [id number]/[id number] ANOTHER TYPE HLTHCARE - Discharge Diagnoses (1) Acute hypoxemic respiratory failure Status: Acute Comment: Acute hypoxic respiratory failure. Still unable to wean secondary to continued encephalopathy. Patient has improved however not enough to support extubation. Exact etiology unknown. Unlikely sepsis at this point this is been treated. Could have underlying ischemic disease such as anoxic encephalopathy. (2) Acute metabolic encephalopathy Status: Acute Comment: At this point patient sepsis been treated as well as underlying oxygenation. Has had some improvement. Exact etiology unknown. 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 Could have been a potential etiology. But stroke was older. (4) Septic shock Status: Acute Comment: Currently treated with vancomycin and Rocephin. We will continue antibiotics for 2 more weeks. (5) Cerebrovascular accident (CVA) with left hemiparesis Status: Chronic (6) Type 2 diabetes mellitus Status: Chronic Qualifiers: Diabetes mellitus correction insulin use: unspecified intermediate teacher insulin use status Comment: Patient has fair but suboptimal control. We just increased patient 70/30 insulin to 30 units in the a.m. and 40 units in the p.m. (7) EtOH dependence Status: Acute Qualifiers: Complication of substance-induced condition: uncomplicated Comment: No evidence of withdrawal patient has had prolonged hospital stay here. (8) PAD (peripheral artery disease) Status: Acute Comment: Severe peripheral vascular disease patient had left foot diabetic ulceration with abscess secondary to MRSA in the past. Multiple surgeries for PVD. (9) EtOH dependence Status: Chronic Qualifiers: Substance use status: with intoxication Core Measure Documentation - Palliative Care Palliative Care/ Comfort Measures: Not Applicable - Core Measures Any of the following diagnoses?: none Exam - Constitutional Vitals: Temp Pulse Resp BP Pulse Ox 97.4 F L 80 33 H 135/81 98 08/29/20 16:00 08/29/20 17:15 08/29/20 17:15 08/29/20 17:15 08/29/20 17:01 General appearance: Present: no acute distress, other (Encephalopathic) - EENT ENT: other (Intubated sedated.) - Neck Neck: Present: supple, normal ROM - Respiratory Respiratory effort: normal Respiratory: bilateral: diminished, rhonchi (Few rhonchi bilaterally.) - Cardiovascular Rhythm: regular Heart Sounds: Present: S1 & S2. Absent: rub, click - Extremities Extremities: pulses symmetrical, No edema Extremity abnormal: erythema, pulses diminished (Decreased pulses), other (Erythema multiple excoriations.) Peripheral Pulses: abnormal - Abdominal General gastrointestinal: Present: soft, non-tender, non-distended, normal bowel sounds, other (Tube feedings.) - Rectal Rectal Exam: other (Minimal scrotal edema.) - Musculoskeletal Musculoskeletal: generalized weakness - Psychiatric Psychiatric: other (Unable to appreciate judgment) - Neurologic Neurologic: focal deficits ( or memory secondary to encephalopathy.) Plan Activity: advance as tolerated Weight Bearing Status: Non-Weight Bearing Diet: other Follow up with: PRIMARY CARE, [Primary Care Provider] - 7 Days
[2020-08-29] MEDS: LORazepam 2 MG/ML VIAL IV PRN (19:03)
== END 2020-08-29 19:15 | DRG 870 ==
LOC: ED 05:07 → CC1 11:00
PROVIDERS: ADMIT Hospitalist; ATTEND Internal Medicine
PROC: 3E0234Z Introduction of Serum, Toxoid and Vaccine into Muscle, Percutaneous Approach (ICD-10-PCS; 2020-08-15)
PROC: 5A1955Z Respiratory Ventilation, Greater than 96 Consecutive Hours (ICD-10-PCS; principal; 2020-08-16)
PROC: 0BH17EZ Insertion of Endotracheal Airway into Trachea, Via Natural or Artificial Opening (ICD-10-PCS; 2020-08-16)
PROC: 0DH67UZ Insertion of Feeding Device into Stomach, Via Natural or Artificial Opening (ICD-10-PCS; 2020-08-17)
PROC: 4A033R1 Measurement of Arterial Saturation, Peripheral, Percutaneous Approach (ICD-10-PCS; 2020-08-19)
DX: A41.9 Sepsis, unspecified organism (principal); G92 Toxic encephalopathy; J96.01 Acute respiratory failure with hypoxia; Z20.828 Contact with and (suspected) exposure to other viral communicable diseases; R65.21 Severe sepsis with septic shock; F10.10 Alcohol abuse, uncomplicated; G89.4 Chronic pain syndrome; E11.9 Type 2 diabetes mellitus without complications; E66.9 Obesity, unspecified; E78.5 Hyperlipidemia, unspecified; I73.9 Peripheral vascular disease, unspecified; I50.32 Chronic diastolic (congestive) heart failure; I11.0 Hypertensive heart disease with heart failure; E11.621 Type 2 diabetes mellitus with foot ulcer; F10.129 Alcohol abuse with intoxication, unspecified; Z23 Encounter for immunization; I69.354 Hemiplegia and hemiparesis following cerebral infarction affecting left non-dominant side; Z86.718 Personal history of other venous thrombosis and embolism; Z79.01 Long term (current) use of anticoagulants; Z79.899 Other long term (current) drug therapy; Z89.412 Acquired absence of left great toe; Z79.84 Long term (current) use of oral hypoglycemic drugs; Z79.82 Long term (current) use of aspirin; Z68.31 Body mass index [BMI] 31.0-31.9, adult
CPT/HCPCS: 31500; 36415; 36600; 70450; 70496; 70498; 71045; 72125; 74018; 74176; 80048; 80053; 80202; 80307; 80320; 81001; 82140; 82435; 82550; 82553; 82803; 82805; 82947; 82962; 83735; 84100; 84145; 84160; 84439; 84443; 84478; 84484; 85025; 85027; 85379; 85610; 85730; 86140; 87040; 87070; 87076; 87086; 87116; 87186; 87205; 90715; 93005; 93970; 94003; 96374; 96375; G0378; G0480; J0133; J0330; J0692; J0696; J1100; J1650; J1815; J1953; J2060; J2704; J3010; J3370; J3411; J3475; J3480; J7030; J7040; Q9967; U0003